=== PATIENT | female | born 1965 | race Caucasian/White ===

== ENCOUNTER 2019-07-08 11:59 | Outpatient (CLI) | payer MEDICARE, MEDICAID, SELFPAY ==
[2019-07-08 12:31] LABS: Basophils # 0.1 10^3/uL (0.0-0.1); Basophils % 0.8 %; Eosinophils # 0.2 10^3/uL (0.0-0.8); Eosinophils % 2.5 %; Hematocrit 40.6 % (37.0-47.0); Hemoglobin 12.7 g/dL (11.5-15.3); Lymphocytes # 3.2 10^3/uL (0.8-4.8); Lymphocytes % 40.8 %; Mean Corpuscular HGB Conc 31.3 g/dL (30.0-36.0); Mean Corpuscular Hemoglobin 28.5 pg (28.0-34.0); Mean Platelet Volume 10.6 fL (7.4-10.4); Monocytes # 0.4 10^3/uL (0.2-0.9); Monocytes % 5.5 %; Neutrophils # 3.9 10^3/uL (1.8-7.7); Nucleated Red Blood Cells % 0 %; Platelet Count 484 10^3/cmm (130-400); Red Blood Count 4.46 10^6/uL (4.1-5.3); Red Cell Distribution Width 14.4 % (12.1-15.1); White Blood Count 7.9 10^3/uL (4.0-10.0)
[2019-07-08 13:24] LABS: Alanine Aminotransferase 11 U/L (0-33); Albumin Level 4.3 g/dL (3.5-5.2); Alkaline Phosphatase 159 IU/L (35-105); Anion Gap 14.8 (5-19); Aspartate Amino Transferase 12 U/L (0-32); Blood Urea Nitrogen 6 mg/dL (6-20); Calcium 10.1 mg/Dl (8.6-10.0); Carbon Dioxide 27 mmol/L (22-29); Chloride 102 mmol/L (98-107); Globulin 2.8 g/dL (1.3-4.6); Glomerular Filtration Rate 104.6 mL/min (90-130); Glucose 115 mg/dL (74-109); Potassium 4.8 mmol/L (3.5-5.1); Sodium 139 mmol/L (136-145); Total Bilirubin 0.2 mg/dL (0.15-1.2); Total Protein 7.1 g/dL (6.6-8.7)
== END 2019-07-08 12:00 | disposition home or self-care (01) ==
LOC: LAB 12:08
PROVIDERS: Family Provider Family Medicine; PCP Family Medicine; Visit Provider Internal Medicine Critical Care Medicine
DX: J44.9 Chronic obstructive pulmonary disease, unspecified (principal); R06.00 Dyspnea, unspecified
CPT/HCPCS: 80053; 85025

== ENCOUNTER 2019-07-16 13:50 | Outpatient (CLI) | payer MEDICARE, MEDICAID, SELFPAY ==
--- NOTE | 2019-07-16 15:06 | CT_ITS ---
WS: [id number] CT CHEST TECHNIQUE: Noncontrast CT of the chest with coronal and sagittal reformatted images. CLINICAL INFORMATION: SHORTNESS OF BREATH COMPARISON: CT 1 16,020 DLP: 809.[address] scans at [facility] use at least one of these dose optimization techniques: automat ed exposure control; mA and/or kV adjustment per patient size (includes targeted exams where dose is matched to clinical indication); or iterative reconstruction. FINDINGS: Both lungs are well aerated bilaterally. No acute pulmonary infiltrates. No evidence of interstitial lung disease. A few calcified granulomas. No suspicious pulmonary parenchymal abnormalities. No acute pulmonary infiltrates. No consolidation or pleural fluid. Normal caliber thoracic aorta. No mediastinal or hilar lymphadenopathy. Thyroid gland is normal. Calc ified hilar and subcarinal lymph nodes. Small sliding-type esophageal hiatal hernia. Cholecystectomy. Small hepatic cyst right hepatic lobe. Adrenal glands are normal. CT/CT chest wo con [id number] IMPRESSION: 1. Both lungs are well aerated. No acute pulmonary infiltrates. 2. No suspicious pulmonary parenchymal abnormalities. 3. No mediastinal or hilar lymphadenopathy. 4. Small sliding-type esophageal hiatal hernia. 5. Small cyst in the right hepatic lobe.
== END 2019-07-16 13:51 | disposition home or self-care (01) ==
LOC: RADWPI 13:52
PROVIDERS: Family Provider Family Medicine; PCP Family Medicine; Visit Provider Internal Medicine Critical Care Medicine
DX: K44.9 Diaphragmatic hernia without obstruction or gangrene (principal); K76.89 Other specified diseases of liver; R06.02 Shortness of breath
CPT/HCPCS: 71250

== ENCOUNTER 2019-08-26 08:06 | Outpatient (CLI) | payer MEDICARE, MEDICAID, SELFPAY ==
--- NOTE | 2019-08-26 08:26 | NMCV_ITS ---
NM christopher perf SPECT r/s* [id number] Nhung Leone Age: 54 Gender: F : 1965 Exam Date: 08/26/2019 09:01 Ordering Phys: Bozena Salcedo MD [email or web address]) Technologist: MANOJ Kyle Exam Location: [facility] Indications: DYSPNEA STRESS TEST Please see separate stress test report in [facility] for full findings IMAGE PROTOCOL Rest/Stress 1 Lexiscan Day Radiopharmaceutical Dose (mCi) Administration Site Administered by Rest: Tc-99m 10.6 IV MANOJ Mcdonald Sestamibi Stress:Tc-99m 32.5 IV MANOJ Mcdonald Sestamibi Rest: 26-Aug-2019 60 Discovery 630 Stress: 26-Aug-2019 30 Discovery 630 0.4mg Lexiscan. Images obtained in supine and prone position. SPECT RESULTS Technical Quality: Excellent Raw Data Analysis: Normal Image Corrections: No attenuation or motion correction applied Summed Stress Score: 0 Summed Rest Score: 1 Summed Difference Score: 0 PERFUSION FINDINGS Very small sized perfusion abnormality of mild severity of apical wall on rest images with improved tracer uptake on stress images. This is suggestive of attenuation artifact. FUNCTIONAL RESULTS (calculated via Gated SPECT) Stress Image LV EF (%): 76 Stress EDV (mL):82 TID: 1.11 Stress ESV (mL):20 FUNCTIONAL FINDINGS: The left ventricle is normal in size. Transient Ischemia Dilatation of 1.1. There is normal left ventricular systolic function. The left ventricular ejection fraction is normal with a value of 76%. There is normal left ventricular wall thickening. Normal end-diastolic and end-systolic volumes. IMPRESSIONS 1. Myocardial perfusion imaging is normal. 2. Overall left ventricular systolic function is normal without regional wall motion abnormalities. 3. The left ventricular ejection fraction is normal with a value of 76%. 4. This study suggests a low likelihood of angiographically significant coronary artery disease. Bozena Salcedo MD (Electronically Signed) Final Date: 26 August 2019 16:30 S
--- NOTE | 2019-08-26 08:26 | ECG_ITS ---
NAME OF STUDY: LEXISCAN SESTAMIBI STRESS TEST INDICATION: Chest Pain, dyspnea PROCEDURE: At the baseline, the blood pressure was 150/88 mm Hg with a heart rate of 97 bpm and oxygen saturation 92%. The electrocardiogram showed normal sinus rhythm, normal axis with normal ST and T's. The Lexiscan was infused over a period of 20 seconds. A total of 0.4 milligrams of Lexiscan was infused. The stress phase was continued for a total of 5 minutes. Heart rate at the end of the stress phase was 110 bpm, oxygen saturation 93% with a blood pressure 126/83 mm Hg. The EKG at the peak infusion revealed sinus rhythm with no significant ST-T wave changes. Sestamibi was injected 20 seconds after the Lexiscan infusion. Blood pressure at the end of the recovery phase was 132/82 mmHg, oxygen saturation 92% with a heart rate of 103 beats per minute. CONCLUSION: 1. Normal EKG response to LexiScan infusion. 2. No LexiScan induced chest pain or cardiac arrhythmia. 3. Normal blood pressure and heart rate response. 4. Sestamibi/sestamibi perfusion scan pending; see separate report. Electronically Signed On 08-26-2019 16:33:52 SKIVER MACHINE by Bozean Salcedo M.D. [email or web address]
[2019-08-26 08:27] VITALS: BMI 32.5
[2019-08-26] MEDS: regadenoson 0.4 Mg/5 ml Syringe IVP (10:07)
[2019-08-26 10:10] VITALS: BP 130/81; PULSE 105
== END 2019-08-26 08:07 | disposition home or self-care (01) ==
PROVIDERS: Family Provider Family Medicine; PCP Family Medicine; Visit Provider Internal Medicine Cardiovascular Disease
DX: R06.00 Dyspnea, unspecified (principal); R07.9 Chest pain, unspecified
CPT/HCPCS: 78452; 93017; A9500; J2785

== ENCOUNTER → 2019-08-28 08:51 | Outpatient (BNVA) | payer MEDICARE, MEDICAID, SELFPAY | PROVIDERS: Family Provider Family Medicine; PCP Family Medicine; Visit Provider Anesthesiology | DX: G89.29 Other chronic pain (principal); M54.16 Radiculopathy, lumbar region; M79.651 Pain in right thigh; M79.652 Pain in left thigh; F17.210 Nicotine dependence, cigarettes, uncomplicated; Z79.891 Long term (current) use of opiate analgesic | CPT/HCPCS: 99214 ==

== ENCOUNTER → 2019-09-10 10:34 | Outpatient (BNVA) | payer MEDICARE, MEDICAID, SELFPAY | PROVIDERS: Family Provider Family Medicine; PCP Family Medicine; Visit Provider Nurse Practitioner Psychiatric/Mental Health | DX: F33.2 Major depressive disorder, recurrent severe without psychotic features (principal); Z63.4 Disappearance and death of family member; F41.1 Generalized anxiety disorder; F17.210 Nicotine dependence, cigarettes, uncomplicated; G47.33 Obstructive sleep apnea (adult) (pediatric) | CPT/HCPCS: 99213 ==

== ENCOUNTER 2019-09-22 12:14 | Outpatient (CLI) | payer MEDICARE, MEDICAID, SELFPAY ==
--- NOTE | 2019-09-22 | XR_ITS ---
WS: [id number] CHEST 2 VIEWS HISTORY: DYSPNEA COMPARISON: 09/22/2019 Lungs: Hyperinflated lungs with changes of emphysema. There are a few scattered granulomata. Intersti tial thickening and scarring is stable in the lower lung sutton. No pleural effusion. Cardiac size: Normal. Mediastinum/Aorta: Mild atherosclerosis aorta. Bones: Mild increase in thoracic kyphosis. XR/XR chest 2V* [id number] IMPRESSION: 1. Chronic emphysema and prior granulomatous disease. 2. Stable chest with no acute pneumonia.
== END 2019-09-22 12:15 | disposition home or self-care (01) ==
LOC: RADOUTREAD 09-23 07:32
PROVIDERS: Family Provider Family Medicine; PCP Family Medicine; Visit Provider Family Medicine
DX: Z76.89 Persons encountering health services in other specified circumstances (principal)

== ENCOUNTER 2019-09-22 13:21 | Inpatient (IN) | payer MEDICARE, MEDICAID, SELFPAY ==
[2019-09-22] VITALS (9 sets, daily range): BP systolic 109–131; BP diastolic 78–84; PULSE 85–112; RESP 18–26; TEMP 36.4–36.8; O2SAT 90–96
--- NOTE | 2019-09-22 15:37 | PM.HP ---
Providers/Chief Complaint Admitting Physician: Lauri Krishnan MD Primary Care Provider: Lauri Krishnan MD Chief Complaint: j96.00, J44.9, J45.909, J45.901 R11.10, K52.9 History of Present Illness Nhung Leone is a 54 year old pleasant lady with history of COPD, asthma, KRISTOFER, on nightly CPAP, following with pulmonology, rhinosinusitis, depression, GERD, current smoker, although says has been trying to cut down, with chronic back pain, on chronic methadone return to her primary care provider's office today after again worsening of her dyspnea symptoms, cough, and noted to have wheezing on exam despite treatment with prednisone and Augmentin 10 days ago. She is saturating well on room air, however, does have significant subjective dyspnea. Also dysphonia, says having lost her voice within the last day or so. She reports she has persistent dry cough. She reports that her cough is very bothersome, and is the worst at night. She does report significant GERD, despite having increased the dose of omeprazole to 20 mg twice daily. She says that she sometimes takes a solution of vinegar which mildly helps with her symptoms. She says she had an EGD before but it was many years ago. Review of Systems Const: Denies: fever, chills, body aches or malaise Eyes: Denies: change in vision or eye redness ENMT: Denies: throat pain, oral sores/lesions or ear pain Card: Reports: other (Chronic tachycardia); Denies: chest pain, edema, pre-syncope or shortness of breath on exertion Resp: Reports: shortness of breath and non-productive cough; Denies: productive cough, change in phlegm color or coughing up blood GI: Reports: heartburn/indigestion; Denies: abdominal pain, nausea, vomiting, diarrhea, constipation, blood in stool or black tarry stool : Denies: flank pain, urinary frequency or blood in urine Musc: Reports: back pain (Chronic); Denies: joint swelling or redness Skin/Breast: Denies: rash, sores or new lesion Neuro: Denies: headache, numbness in extremities, weakness in extremities, dizziness, confusion or seizure-like activity Endo: Denies: excessive urination or excessive thirst Keith/Lymph: Denies: easy bleeding or purpura All/Imm: Denies: hives, throat swelling or tongue swelling Medications/Allergies Allergies Allergy/AdvReac Type Severity Reaction Status Date / Time codeine Allergy Unknown Unknown Verified 08/28/19 09:32 doxycycline Allergy Unknown ALGY-Hives Verified 08/28/19 09:32 Iodinated Contrast Media Allergy Unknown ALGY-Hives Verified 08/28/19 09:32 Sulfa (Sulfonamide Allergy Unknown Unknown Verified 08/28/19 09:32 Antibiotics) gabapentin Allergy Unknown Verified 08/28/19 09:32 PFSH Acute PFSH: Medical History Acute respiratory failure Bereavement delivery delivered Chronic post-traumatic stress disorder Chronic radicular lumbar pain COPD (chronic obstructive pulmonary disease) Dyspnea Encounter for long-term use of opiate analgesic Essential (primary) hypertension Generalized anxiety disorder GERD (gastroesophageal reflux disease) Heavy cigarette smoker Herniated disc Hypokalemia Lesion of ulnar nerve, bilateral Major depressive disorder, recurrent severe without psychotic features Obstructive sleep apnea Opioid contract exists KRISTOFER on CPAP Sleep apnea, unspecified Smoker Tachycardia Ulnar nerve abnormality Surgical History H/O bilateral oophorectomy H/O skin graft History of carpal tunnel release History of cholecystectomy Family History Father Myocardial infarct, Onset Age: 45 Brother Myocardial infarct, Onset Age: 53 vague, denies any h/o stents/bypass in family members Other CAD (coronary artery disease) Social History Smoking and tobacco status: current every day smoker cigarettes Packs smoked per day: 1 Years cigarettes smoked: 36 Alcohol intake: current Alcohol intake frequency: few times a week Current occupational status: disabled History of recent travel: No Current gender identity: Female Vitals/I&O/Wt Last Vital Signs Temp 98.2 F 09/22/19 14:47 Pulse 112 H 09/22/19 14:47 Resp 20 H 09/22/19 14:47 BP 109/78 09/22/19 14:47 Pulse Ox 94 09/22/19 14:47 Weight last 48 hrs Weight 88.451 kg Physical Exam Const: COMMON NORMALS: no apparent distress and oriented x3 HENMT: COMMON NORMALS: oropharynx normal Neck/C-Spine: COMMON NORMALS: no JVD Resp: COMMON NORMALS: normal respiratory effort and clear to auscultation bilaterally AUSCULTATION: wheezes Cardio: COMMON NORMALS: no JVD, regular rhythm, S1 normal heart sound, S2 normal heart sound and no murmurs RATE: tachycardic (Regular tachycardia, chronic) RHYTHM: regular rhythm HEART SOUNDS: S1 normal and S2 normal GI: COMMON NORMALS: normal to inspection, nondistended, normoactive bowel sounds, soft to palpation and non-tender PALPATION: Yes soft Extremity: COMMON NORMALS: no joint enlargement and no pedal edema Neuro: COMMON NORMALS: oriented x3 and moves all extremities Skin: COMMON NORMALS: no rashes or lesions noted GENERAL SKIN EXAM: no rashes or lesions noted A&P Assessment and plan (1) COPD (chronic obstructive pulmonary disease): COPD with exacerbation. Completed a course of Augmentin and prednisone 10 days ago. Still having dyspnea. Unfortunately she does still smoke had a low discussion with her regarding quitting. She does saturate well on room air. She does have wheezing on exam. Does not have purulent sputum production. At this time will not give antibiotic. Discussed with PCP, and in his office chest x-ray without pneumonia. We will assess her for influenza. With cough, wheezing, despite treatment, without other explanation, will also assess her for COVID. She does have significant GERD, which in absence of other explanation most likely is responsible for her symptoms as she does report that her bothersome cough is the worst at night. Discussed with her regarding avoiding meals before sleeping. She does state that her dinner is at 5 PM and she usually falls asleep at 10 PM. She does, however, drink Pepsi before sleeping. Discussed to avoid this or other carbonated drinks and otherwise stay without oral intake for at least 3-4 hours prior to sleeping. With her propping up the head of bed on some cinderblocks. We discussed other foods that may also lead to symptoms of GERD to avoid. At this time will increase dose of her PPI to 40 mg twice a day. Her primary care provider has had good experience with also adding H2 aniket on top of PPI, and recommends we do so in this case as well. Discussed with her as she is a chronic smoker, with persistent GERD despite treatment will benefit from endoscopic evaluation once these may be resumed after the pandemic. At this time continue nightly CPAP. Due to this she will require airborne isolation. Oxygen support as needed. Breathing treatments. Add inhaled budesonide. Continue follow-up with pulmonology after discharge as IgE is elevated, with consideration of additional therapeutic measures. Status: Acute Code(s): J44.9 - Chronic obstructive pulmonary disease, unspecified Additional A&P Information KRISTOFER: Nightly CPAP Smoking addiction: Continues to smoke despite respiratory symptoms. Discussed with her for 5 minutes and she understands the rationale on quitting. She is agreeable for nicotine replacement. Please continue to encourage cessation. GERD: As above Chronic tachycardia: Assessed by cardiology, appears this is most likely secondary to pulmonary causes. Chronic back pain: On methadone. Continue. Restless leg syndrome: Continue ropinirole Depression Other chronic conditions as mentioned in PMH Attestations Medical Necessity Statement*: Place in observation. 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
[2019-09-22] MEDS: ipratropium-albuterol 3 mL Neb INHALATION ×2 (15:50→21:37)
[2019-09-22] MEDS: heparin 5,000 unit/mL INJ 1 mL 5000 UNIT SUBCUT ×2 (16:38→21:24)
[2019-09-22] MEDS: oxyCODONE-APAP 10-325 mg Tablet 1 TAB PO (16:44)
[2019-09-22] MEDS: ropinirole 0.25 mg Tablet 0.5 MG PO (16:45)
[2019-09-22] MEDS: pantoprazole DR 40 mg Tablet PO (16:45)
[2019-09-22] MEDS: methadone 10 mg Tablet PO ×2 (16:46→21:24)
[2019-09-22] MEDS: famotidine 20 mg Tablet PO (16:47)
[2019-09-22] MEDS: topiramate 100 mg Tablet PO (16:47)
[2019-09-22] MEDS: fluticasone nasal spray 16gm Btl 1 SPRAY INTRANASAL (16:48)
[2019-09-22 17:34] LABS: Basophils # 0.1 10^3/uL (0.0-0.1); Basophils % 0.4 %; Eosinophils # 0.2 10^3/uL (0.0-0.8); Eosinophils % 1.5 %; Hematocrit 38.5 % (37.0-47.0); Hemoglobin 11.6 g/dL (11.5-15.3); Lymphocytes % 34.6 %; Mean Corpuscular HGB Conc 30.1 g/dL (30.0-36.0); Mean Corpuscular Hemoglobin 26.1 pg (28.0-34.0); Mean Corpuscular Volume 86.7 fL (81-99); Mean Platelet Volume 11.7 fL (7.4-10.4); Monocytes # 0.8 10^3/uL (0.2-0.9); Monocytes % 5.4 %; Neutrophils # 8.3 10^3/uL (1.8-7.7); Nucleated Red Blood Cells % 0 %; Platelet Count 384 10^3/cmm (130-400); Red Blood Count 4.44 10^6/uL (4.1-5.3); Red Cell Distribution Width 15.6 % (12.1-15.1); White Blood Count 14.4 10^3/uL (4.0-10.0)
[2019-09-22 17:52] LABS: Alanine Aminotransferase 16 U/L (0-33); Albumin Level 3.9 g/dL (3.5-5.2); Alkaline Phosphatase 137 IU/L (35-105); Anion Gap 17.6 (5-19); Aspartate Amino Transferase 15 U/L (0-32); Blood Urea Nitrogen 4 mg/dL (6-20); Calcium 9.5 mg/dL (8.5-10.5); Carbon Dioxide 25 mmol/L (22-29); Chloride 102 mmol/L (98-107); Globulin 2.9 g/dL (1.3-4.6); Glomerular Filtration Rate 104.2 mL/min (90-130); Glucose 107 mg/dL (65-115); Osmolality Calculated 288 mOsm/kg (285-295); Potassium 3.6 mmol/L (3.5-5.1); Sodium 141 mmol/L (136-145); Total Bilirubin 0.2 mg/dL (0.15-1.2); Total Protein 6.8 g/dL (6.6-8.7)
[2019-09-22 18:28] LABS: Neutrophils % 58.1 %
[2019-09-22 18:29] LABS: Slide Review Slide Review Perform
[2019-09-22 18:31] LABS: Influenza A by IFA Negative (Negative); Influenza B by IFA Negative (Negative)
[2019-09-22] MEDS: budesonide 0.5 mg/2 mL Neb INHALATION (21:37)
[2019-09-23] VITALS (16 sets, daily range): BP systolic 99–140; BP diastolic 63–81; PULSE 98–119; RESP 16–21; TEMP 36.8–37.3; O2SAT 87–95
[2019-09-23] MEDS: ipratropium-albuterol 3 mL Neb INHALATION ×2 (03:00→09:36)
[2019-09-23 06:33] LABS: Alanine Aminotransferase 19 U/L (0-33); Albumin Level 3.7 g/dL (3.5-5.2); Alkaline Phosphatase 148 IU/L (35-105); Anion Gap 13.4 (5-19); Aspartate Amino Transferase 19 U/L (0-32); Blood Urea Nitrogen 6 mg/dL (6-20); Calcium 9.4 mg/dL (8.5-10.5); Carbon Dioxide 27 mmol/L (22-29); Chloride 100 mmol/L (98-107); Globulin 2.8 g/dL (1.3-4.6); Glomerular Filtration Rate 104.2 mL/min (90-130); Glucose 125 mg/dL (65-115); Osmolality Calculated 279 mOsm/kg (285-295); Potassium 4.4 mmol/L (3.5-5.1); Sodium 136 mmol/L (136-145); Total Bilirubin 0.2 mg/dL (0.15-1.2); Total Protein 6.5 g/dL (6.6-8.7)
[2019-09-23] MEDS: heparin 5,000 unit/mL INJ 1 mL 5000 UNIT SUBCUT ×3 (06:38→23:23)
[2019-09-23] MEDS: verapamil ER 180 mg Tablet PO (06:39)
--- NOTE | 2019-09-23 07:41 | XR_ITS ---
WS: [id number] PORTABLE CHEST HISTORY: dyspnea COMPARISON: 09/22/2019 Hyperexpanded lungs. Linear, horizontal atelectasis in the RIGHT lower lung field is new. No pneumoni a. No pleural effusion or pneumothorax. No pulmonary nodule. Cardiac size: Normal. Mediastinum/Aorta: Mild atherosclerosis aorta. No osseous abnormality seen. XR/XR chest 1V portable [id number] IMPRESSION: 1. Minimal subsegmental atelectasis RIGHT lower lobe is new. 2. Chronic emphysema with no pneumonia.
[2019-09-23 07:58] LABS: Basophils # 0.1 10^3/uL (0.0-0.1); Basophils % 0.4 %; Eosinophils # 0.2 10^3/uL (0.0-0.8); Eosinophils % 1.9 %; Hematocrit 35.3 % (37.0-47.0); Hemoglobin 10.7 g/dL (11.5-15.3); Lymphocytes # 3.4 10^3/uL (0.8-4.8); Lymphocytes % 29.7 %; Mean Corpuscular HGB Conc 30.4 g/dL (30.0-36.0); Mean Corpuscular Hemoglobin 27.2 pg (28.0-34.0); Mean Corpuscular Volume 89.3 fL (81-99); Mean Platelet Volume 10.9 fL (7.4-10.4); Monocytes # 0.9 10^3/uL (0.2-0.9); Monocytes % 7.5 %; Neutrophils # 6.9 10^3/uL (1.8-7.7); Neutrophils % 59.8 %; Nucleated Red Blood Cells % 0 %; Platelet Count 418 10^3/cmm (130-400); Red Blood Count 4.01 10^6/uL (4.1-5.3); Red Cell Distribution Width 15.8 % (12.1-15.1); White Blood Count 11.5 10^3/uL (4.0-10.0)
[2019-09-23] MEDS: budesonide 0.5 mg/2 mL Neb INHALATION (09:37)
[2019-09-23] MEDS: topiramate 100 mg Tablet PO ×2 (09:59→18:06)
[2019-09-23] MEDS: famotidine 20 mg Tablet PO ×2 (10:00→18:05)
[2019-09-23] MEDS: acetaminophen 325 mg Tablet 650 MG PO (10:00)
[2019-09-23] MEDS: ropinirole 0.25 mg Tablet 0.5 MG PO ×2 (10:00→18:05)
[2019-09-23] MEDS: roflumilast 500 mcg Tablet PO (10:00)
[2019-09-23] MEDS: pantoprazole DR 40 mg Tablet PO ×2 (10:00→18:05)
[2019-09-23] MEDS: methadone 10 mg Tablet PO ×4 (10:09→20:17)
[2019-09-23] MEDS: fluticasone nasal spray 16gm Btl 1 SPRAY INTRANASAL ×2 (10:10→18:06)
[2019-09-23] MEDS: nicotine 21 mg Patch 1 PATCH TRANSDERMA (10:10)
--- NOTE | 2019-09-23 10:30 | DCPLANNER ---
Per rounding, pt will d/c to home after covid test results come back.
--- NOTE | 2019-09-23 11:24 | PC.RESP ---
Patient given Pulmonary Rehab and Smoking Cessation information.
--- NOTE | 2019-09-23 16:08 | P.PN_ITS ---
Subjective Subjective: Interval history: Feeling slightly better, although overall about the same. Does not feel worse, although also has been using some oxygen. Vitals/I&O/Wt Last Vital Signs Temp 98.6 F 09/23/19 15:58 Pulse 99 09/23/19 15:58 Resp 18 09/23/19 15:58 BP 110/68 09/23/19 15:58 Pulse Ox 94 09/23/19 15:58 09/23/19 09/23/19 09/23/19 06:59 14:59 22:59 Intake Total 200 / 450 480 / 480 Balance 200 / 450 480 / 480 Weight last 48 hrs Weight 88.451 kg Physical Exam Const: COMMON NORMALS: no apparent distress and oriented x3 HENMT: COMMON NORMALS: oropharynx normal Neck/C-Spine: COMMON NORMALS: no JVD Resp: COMMON NORMALS: normal respiratory effort and clear to auscultation bilaterally AUSCULTATION: clear to auscultation bilaterally and wheezes Cardio: COMMON NORMALS: no JVD, regular rhythm, S1 normal heart sound, S2 normal heart sound and no murmurs RATE: tachycardic (Regular tachycardia, chronic) RHYTHM: regular rhythm HEART SOUNDS: S1 normal and S2 normal GI: COMMON NORMALS: normal to inspection, nondistended, normoactive bowel sounds, soft to palpation and non-tender PALPATION: Yes soft Extremity: COMMON NORMALS: no joint enlargement and no pedal edema Neuro: COMMON NORMALS: oriented x3 and moves all extremities Skin: COMMON NORMALS: no rashes or lesions noted GENERAL SKIN EXAM: no rashes or lesions noted Data : 09/23/19 06:05 09/23/19 06:05 A&P Assessment and plan (1) COPD (chronic obstructive pulmonary disease): Today feeling slightly better, although he is using some oxygen. Still bilateral wheezing. Has walked to the restroom and that was okay. Overall she has been stable. COVID testing pending. COPD with exacerbation. Completed a course of Augmentin and prednisone 10 days ago. Still having dyspnea. Unfortunately she does still smoke had a low discussion with her regarding quitting. Does not have purulent sputum production. Holding off antibiotic at this time as I believe this is mostly secondary to her GERD. Rapid flu neg. She had some episodes of dry heaving and small amount of vomiting this morning. Continue PPI, H2 aniket. Add sucralfate. She does have significant GERD, which in absence of other explanation most likely is responsible for her symptoms as she does report that her bothersome cough is the worst at night. Discussed with her regarding avoiding meals before sleeping. She does state that her dinner is at 5 PM and she usually falls asleep at 10 PM. She does, however, drink Pepsi before sleeping. Discussed to avoid this or other carbonated drinks and otherwise stay without oral intake for at least 3-4 hours prior to sleeping. With her propping up the head of bed on some cinderblocks. We discussed other foods that may also lead to symptoms of GERD to avoid. At this time will increase dose of her PPI to 40 mg twice a day. Her primary care provider has had good experience with also adding H2 aniket on top of PPI, and recommends we do so in this case as well. Discussed with her as she is a chronic smoker, with persistent GERD despite treatment will benefit from endoscopic evaluation once these may be resumed after the pandemic. At this time continue nightly CPAP. Due to this she will require airborne i solation. Oxygen support as needed. Breathing treatments. Add inhaled budesonide. Continue follow-up with pulmonology after discharge as IgE is elevated, with consideration of additional therapeutic measures. Status: Acute Code(s): J44.9 - Chronic obstructive pulmonary disease, unspecified Additional A&P Information KRISTOFER: Nightly CPAP Smoking addiction: Continues to smoke despite respiratory symptoms. Discussed with her for 5 minutes and she understands the rationale on quitting. She is agreeable for nicotine replacement. Please continue to encourage cessation. GERD: As above Chronic tachycardia: Assessed by cardiology, appears this is most likely seconda ry to pulmonary causes. Chronic back pain: On methadone. Continue. Restless leg syndrome: Continue ropinirole Depression Other chronic conditions as mentioned in PMH Attestations Medical Necessity Statement*: Continue observation for COPD exacerbation, ruling out COVID. 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
[2019-09-23] MEDS: albuterol 8 gm MDI 2 PUFF INHALATION ×2 (16:10→21:15)
[2019-09-23] MEDS: sucralfate 1 gm/10 mL Oral Liq UDC PO ×2 (18:05→20:17)
[2019-09-24] VITALS (20 sets, daily range): BP systolic 91–157; BP diastolic 60–83; PULSE 90–113; RESP 16–22; TEMP 36.8–37.2; O2SAT 90–97
[2019-09-24] MEDS: albuterol 8 gm MDI 2 PUFF INHALATION ×6 (01:37→21:50)
[2019-09-24 05:37] LABS: Basophils % 0.4 %; Eosinophils # 0.2 10^3/uL (0.0-0.8); Eosinophils % 1.8 %; Hematocrit 35.7 % (37.0-47.0); Hemoglobin 10.9 g/dL (11.5-15.3); Lymphocytes # 3.8 10^3/uL (0.8-4.8); Lymphocytes % 34.4 %; Mean Corpuscular HGB Conc 30.5 g/dL (30.0-36.0); Mean Corpuscular Hemoglobin 27.4 pg (28.0-34.0); Mean Corpuscular Volume 89.7 fL (81-99); Mean Platelet Volume 10.3 fL (7.4-10.4); Monocytes # 0.8 10^3/uL (0.2-0.9); Monocytes % 6.8 %; Neutrophils # 6.2 10^3/uL (1.8-7.7); Nucleated Red Blood Cells % 0 %; Platelet Count 383 10^3/cmm (130-400); Red Blood Count 3.98 10^6/uL (4.1-5.3); Red Cell Distribution Width 15.9 % (12.1-15.1)
[2019-09-24] MEDS: verapamil ER 180 mg Tablet PO (05:54)
[2019-09-24] MEDS: sucralfate 1 gm/10 mL Oral Liq UDC PO ×4 (05:54→21:56)
[2019-09-24 06:02] LABS: Alanine Aminotransferase 17 U/L (0-33); Albumin Level 3.7 g/dL (3.5-5.2); Alkaline Phosphatase 140 IU/L (35-105); Anion Gap 17.3 (5-19); Aspartate Amino Transferase 14 U/L (0-32); Blood Urea Nitrogen 9 mg/dL (6-20); Calcium 9.4 mg/dL (8.5-10.5); Carbon Dioxide 23 mmol/L (22-29); Chloride 101 mmol/L (98-107); Globulin 2.3 g/dL (1.3-4.6); Glomerular Filtration Rate 87.2 mL/min (90-130); Glucose 99 mg/dL (65-115); Osmolality Calculated 280 mOsm/kg (285-295); Potassium 4.3 mmol/L (3.5-5.1); Sodium 137 mmol/L (136-145); Total Bilirubin 0.3 mg/dL (0.15-1.2)
[2019-09-24] MEDS: ropinirole 0.25 mg Tablet 0.5 MG PO ×2 (09:51→18:11)
[2019-09-24] MEDS: heparin 5,000 unit/mL INJ 1 mL 5000 UNIT SUBCUT ×2 (09:51→16:04)
[2019-09-24] MEDS: famotidine 20 mg Tablet PO ×2 (09:52→18:11)
[2019-09-24] MEDS: roflumilast 500 mcg Tablet PO (09:52)
[2019-09-24] MEDS: pantoprazole DR 40 mg Tablet PO ×3 (09:52→20:13)
[2019-09-24] MEDS: acetaminophen 325 mg Tablet 650 MG PO (09:52)
[2019-09-24] MEDS: methadone 10 mg Tablet PO ×4 (09:52→20:12)
[2019-09-24] MEDS: fluticasone nasal spray 16gm Btl 1 SPRAY INTRANASAL ×2 (09:53→20:14)
[2019-09-24] MEDS: nicotine 21 mg Patch 1 PATCH TRANSDERMA (09:53)
[2019-09-24] MEDS: topiramate 100 mg Tablet PO ×2 (09:53→18:11)
--- NOTE | 2019-09-24 10:32 | DCPLANNER ---
Covid test not back yet, pt may need 02, will need home 02 eval.
--- NOTE | 2019-09-24 19:52 | P.PN_ITS ---
Subjective Subjective: Interval history: She was still having dry heaving today, but at the same time still very dyspneic with wheezing on exam. Although, she does note that coughing at night has improved with acid blockers and her trying to raise the head of bed overnight. COVID-19 testing is pending. She states that her brother who was telehealth nurse educator was sent home from work due to contact with her until her test results are back. I called [facility] to confirm that they have the specimen. Vitals/I&O/Wt Last Vital Signs Temp 98.2 F 09/24/19 16:00 Pulse 109 H 09/24/19 16:00 Resp 20 H 09/24/19 18:12 BP 100/61 09/24/19 16:00 Pulse Ox 93 09/24/19 18:12 09/24/19 09/24/19 09/24/19 06:59 14:59 22:59 Intake Total 120 / 1200 1080 / 1080 Output Total 300 / 300 Balance 120 / 775 780 / 780 Physical Exam Const: COMMON NORMALS: no apparent distress and oriented x3 HENMT: COMMON NORMALS: oropharynx normal Neck/C-Spine: COMMON NORMALS: no JVD Resp: COMMON NORMALS: normal respiratory effort AUSCULTATION: wheezes (Bilateral) Cardio: COMMON NORMALS: no JVD, regular rhythm, S1 normal heart sound, S2 normal heart sound and no murmurs RATE: tachycardic (Regular tachycardia, chronic) RHYTHM: regular rhythm HEART SOUNDS: S1 normal and S2 normal GI: COMMON NORMALS: normal to inspection, nondistended, normoactive bowel sounds, soft to palpation and non-tender PALPATION: Yes soft Extremity: COMMON NORMALS: no joint enlargement and no pedal edema Neuro: COMMON NORMALS: oriented x3 and moves all extremities Skin: COMMON NORMALS: no rashes or lesions noted GENERAL SKIN EXAM: no rashes or lesions noted Data : 09/24/19 05:19 09/24/19 05:19 A&P Assessment and plan (1) COPD (chronic obstructive pulmonary disease): Again dyspneic, with cough. Easily fatigable, with low reserve. Objectively she has weaned off oxygen at rest. She has been having dry heaves again, however, although says coughing less at night. She has quite significant wheezing on exam. Unfortunately we do not have a choice but to start her back on steroid. We will for now start on 20 mg prednisone. Will intensify Protonix to 80 mg twice a day. Continue H2 aniket and sucralfate. Will check H. pylori. Discussed with her at this time EGD is not possible as all elective procedures are discontinued until further notice due to pandemic. COVID testing pending. Request have received the sample. She says her brother who is a telehealth nurse educator was sent home until her results are available. COPD with exacerbation. Completed a course of Augmentin and prednisone 10 days ago. Still having dyspnea. Unfortunately she does still smoke had a low discussion with her regarding quitting. Does not have purulent sputum production. Holding off antibiotic at this time as I believe this is mostly secondary to her GERD. Rapid flu neg. She does have significant GERD, which in absence of other explanation most likely is responsible for her symptoms as she does report that her bothersome cough is the worst at night. Discussed with her regarding avoiding meals before sleeping. She does state that her dinner is at 5 PM and she usually falls asleep at 10 PM. She does, however, drink Pepsi before sleeping. Discussed to avoid this or other carbonated drinks and otherwise stay without oral intake for at least 3-4 hours prior to sleeping. With her propping up the head of bed on some cinderblocks. We discussed other foods that may also lead to symptoms of GERD to avoid. At this time will increase dose of her PPI to 40 mg twice a day. Her primary care provider has had good experience with also adding H2 aniket on top of PPI, and recommends we do so in this case as well. Discussed with her as she is a chronic smoker, with persistent GERD despite treatment will benefit from endoscopic evaluation once these may be resumed after the pandemic. At this time continue nightly CPAP. Due to this she will require airborne isolation. Oxygen support as needed. Breathing treatments. Inhaled budesonide. Continue follow-up with pulmonology after discharge as IgE is elevated, with consideration of additional therapeutic measures. Status: Acute Code(s): J44.9 - Chronic obstructive pulmonary disease, unspecified Additional A&P Information KRISTOFER: Nightly CPAP Smoking addiction: Continues to smoke despite respiratory symptoms. Discussed w ith her for 5 minutes and she understands the rationale on quitting. She is agreeable for nicotine replacement. Please continue to encourage cessation. GERD: As above Chronic tachycardia: Assessed by cardiology, appears this is most likely secondary to pulmonary causes. Chronic back pain: On methadone. Continue. Restless leg syndrome: Continue ropinirole Depression Other chronic conditions as mentioned in PMH Attestations Medical Necessity Statement*: Requiring admission of over 2 midnights for asse ssment and management of COPD with exacerbation, with failed outpatient course of therapy. Coding Level of Care Code Acute Biologist for Gracie Laguna Diagnoses COPD (chronic obstructive pulmonary disease) J44.9
[2019-09-24] MEDS: predniSONE 20 mg Tablet PO (20:14)
[2019-09-24 20:16] LABS: H. Pylori IgG Antibody Negative (Negative)
[2019-09-25] VITALS (9 sets, daily range): BP systolic 102–114; BP diastolic 69–76; PULSE 11–121; RESP 18–24; TEMP 36.7–36.9; O2SAT 90–95
[2019-09-25] MEDS: heparin 5,000 unit/mL INJ 1 mL 5000 UNIT SUBCUT ×2 (00:01→09:16)
[2019-09-25] MEDS: albuterol 8 gm MDI 2 PUFF INHALATION ×3 (05:29→15:39)
[2019-09-25] MEDS: sucralfate 1 gm/10 mL Oral Liq UDC PO (06:22)
[2019-09-25] MEDS: verapamil ER 180 mg Tablet PO (06:22)
[2019-09-25 06:49] LABS: Basophils # 0.1 10^3/uL (0.0-0.1); Basophils % 0.5 %; Eosinophils % 0.2 %; Hematocrit 37.1 % (37.0-47.0); Hemoglobin 11.3 g/dL (11.5-15.3); Lymphocytes # 2.1 10^3/uL (0.8-4.8); Lymphocytes % 17.8 %; Mean Corpuscular HGB Conc 30.5 g/dL (30.0-36.0); Mean Corpuscular Hemoglobin 26.8 pg (28.0-34.0); Mean Corpuscular Volume 88.1 fL (81-99); Mean Platelet Volume 10.7 fL (7.4-10.4); Monocytes # 0.5 10^3/uL (0.2-0.9); Monocytes % 4.2 %; Neutrophils # 8.9 10^3/uL (1.8-7.7); Neutrophils % 76.6 %; Nucleated Red Blood Cells % 0 %; Platelet Count 411 10^3/cmm (130-400); Red Blood Count 4.21 10^6/uL (4.1-5.3); Red Cell Distribution Width 15.9 % (12.1-15.1); White Blood Count 11.7 10^3/uL (4.0-10.0)
[2019-09-25 07:07] LABS: Alanine Aminotransferase 16 U/L (0-33); Albumin Level 4.1 g/dL (3.5-5.2); Alkaline Phosphatase 143 IU/L (35-105); Anion Gap 16.4 (5-19); Aspartate Amino Transferase 15 U/L (0-32); Blood Urea Nitrogen 15 mg/dL (6-20); Calcium 9.7 mg/dL (8.5-10.5); Carbon Dioxide 24 mmol/L (22-29); Chloride 101 mmol/L (98-107); Creatinine Clr Calc Pharmacy 88.3043; Glomerular Filtration Rate 74.7 mL/min (90-130); Glucose 119 mg/dL (65-115); Osmolality Calculated 281 mOsm/kg (285-295); Potassium 4.4 mmol/L (3.5-5.1); Sodium 137 mmol/L (136-145); Total Bilirubin 0.2 mg/dL (0.15-1.2); Total Protein 7.1 g/dL (6.6-8.7)
--- NOTE | 2019-09-25 07:37 | US_ITS ---
WS: [id number] RIGHT UPPER QUADRANT ULTRASOUND HISTORY: Hepatobiliary with AP elevation COMPARISON: 09/01/2015 Liver: 15.5 cm in length. Mild hepatic steatosis. No mass or biliary dilatation. Gallbladder: Prior cholecystectomy. CBD: 0.4 cm Pancreas: Not visualized. Right kidney: 11.3 cm in length. Normal echogenicity with no mass or hydronephrosis. Aorta and IVC: Unremarkable. No ascites. US/US abdomen limited [id number] IMPRESSION: 1. Prior cholecystectomy. 2. Moderate hepatic steatosis. 3. No bile duct dilatation.
[2019-09-25] MEDS: roflumilast 500 mcg Tablet PO (09:15)
[2019-09-25] MEDS: methadone 10 mg Tablet PO ×2 (09:15→14:37)
[2019-09-25] MEDS: topiramate 100 mg Tablet PO (09:15)
[2019-09-25] MEDS: ropinirole 0.25 mg Tablet 0.5 MG PO (09:15)
[2019-09-25] MEDS: nicotine 21 mg Patch 1 PATCH TRANSDERMA (09:15)
[2019-09-25] MEDS: pantoprazole DR 40 mg Tablet 80 MG PO (09:16)
[2019-09-25] MEDS: famotidine 20 mg Tablet PO (09:16)
[2019-09-25] MEDS: fluticasone nasal spray 16gm Btl 1 SPRAY INTRANASAL (09:16)
[2019-09-25] MEDS: predniSONE 20 mg Tablet PO (09:16)
--- NOTE | 2019-09-25 19:47 | P.DS_ITS ---
Discharge Providers Date of Admission: 09/24/19 19:51 Date of Discharge: September 25, 2019 Attending Provider at Admission: Lauri Krishnan MD Attending Provider at Discharge: Jose Chavez Primary Care Provider: Lauri Krishnan MD Diagnoses at Discharge Discharge Diagnosis (1) COPD (chronic obstructive pulmonary disease): Status: Acute Reason for Visit Reason for Visit: Reason For Visit: j96.00, J44.9, J45.909, J45.901 R11.10, K52.9 Hospital Course Hospital Course: Very pleasant 54 year old lady with history of COPD, KRISTOFER, on nightly CPAP, following with pulmonology, with rhinosinusitis, depression, GERD, current smoker, with chronic tachycardia assessed by cardiology and thought to be related to her respiratory condition, was admitted due to return of dyspnea, wheezing despite having undergone a course of treatment with Augmentin and prednisone 10 days previously. Found to be in COPD exacerbation, with cough, wheezing. With respiratory symptoms was tested for COVID-19, although those results are not yet available. On questioning she provides history of significant GERD as well as history of cough being worse at night. She was started on PPI, with H2 aniket added, as well as sucralfate. She had episodes of nausea, dry heaving in the hospital. Mild alk phos elevation was noted, with fatty liver disease on ultrasonography, but without CBD dilation, with history of cholecystectomy. She has been having some persistent wheezing, however, actually does report that nocturnal cough has improved with treatment. Due to persistence of wheezing had to be started on prednisone at lower dose to reduce recurrence of GERD, with improvement. No PNA on x-ray. Weaned off any oxygen, and is feeling better. Does not qualify for oxygen on home evaluation. She was counseled extensively on smoking cessation and understands the reasons why she needs to quit. Nicotine replacement is provided. We discussed strategies to reduce GERD, which is likely the trigger of her recurrent episodes including avoiding Pepsi which she drinks in the evening, as well as subsequent follow-up with upper endoscopy after normal functioning is resumed for nonemergent medical services. Since she is stable, feeling somewhat better, she felt strong enough to return home while the COVID-19 testing is pending. Our infection control team will continue monitoring for the results and notify her once they are available. She is referred for follow-up with pulmonology for reassessment due to recurrent COPD exacerbation. Physical Exam Const: COMMON NORMALS: no apparent distress and oriented x3 HENMT: COMMON NORMALS: oropharynx normal Neck/C-Spine: COMMON NORMALS: no JVD Resp: COMMON NORMALS: normal respiratory effort AUSCULTATION: wheezes (Bilateral, less prominent) Cardio: COMMON NORMALS: no JVD, regular rhythm, S1 normal heart sound, S2 normal heart sound and no murmurs RATE: tachycardic (Regular tachycardia, chronic) RHYTHM: regular rhythm HEART SOUNDS: S1 normal and S2 normal GI: COMMON NORMALS: normal to inspection, nondistended, normoactive bowel sounds, soft to palpation and non-tender PALPATION: Yes soft Extremity: COMMON NORMALS: no joint enlargement and no pedal edema Neuro: COMMON NORMALS: oriented x3 and moves all extremities Skin: COMMON NORMALS: no rashes or lesions noted GENERAL SKIN EXAM: no rashes or lesions noted Discharge Data Data Completed and Pending: Completed Studies During Hospitalization Category Date Time Status CXRP [XR chest 1V portable [id number]] R outine Exams 09/23/19 07:41 Completed US abdomen limite d 35593 Routine Ultrasound 09/25/19 07:37 Completed Labs from last 24 hours 09/25/19 09/25/19 09/24/19 06:29 06:29 05:19 WBC 11.7 H RBC 4.21 Hgb 11.3 L Hct 37.1 MCV 88.1 MCH 26.8 L MCHC 30.5 RDW 15.9 H Plt Count 411 H MPV 10.7 H Neut % (Auto) 76.6 Lymph % (Auto) 17.8 [place] % (Auto) 4.2 Eos % (Auto) 0.2 Baso % (Auto) 0.5 Neut # (Auto) 8.9 H Lymph # (Auto) 2.1 [place] # (Auto) 0.5 Eos # (Auto) 0.0 Baso # (Auto) 0.1 Nucleated RBC % (a uto) 0 Nucleated RBCs # 0.0 Sodium 137 Potassium 4.4 Chloride 101 Carbon Dioxide 24 Anion Gap 16.4 BUN 15 Creatinine 0.8 GFR Calculation 74.7 L Glucose 119 H Calculated Osmolal ity 281 L Calcium 9.7 Total Bilirubin 0.2 AST 15 ALT 16 Alkaline Phosphata se 143 H Total Protein 7.1 Albumin 4.1 Globulin 3.0 H. pylori IgG Anti body Negative Vitals: Last Vital Signs Temp 98.4 F 09/25/19 15:21 Pulse 116 H 09/25/19 17:27 Resp 18 09/25/19 17:27 BP 110/69 09/25/19 15:21 Pulse Ox 93 09/25/19 17:27 Discharge Plan Discharge Patient Disposition: Home, Self-Care Condition: Stable Prescriptions: New sucralfate 100 mg/mL Suspension 1 g PO AC&BEDTIME Qty: 420 RF: 0 famotidine 20 mg Tablet 20 mg PO BID Qty: 60 RF: 0 nicotine 21 mg/24 hr Patch 24 Hour 1 patch transdermal DAILY Qty: 30 RF: 0 prednisone 20 mg Tablet 20 mg PO DAILY Qty: 4 RF: 0 nicotine (polacrilex) 2 mg lozenge 2 mg BUCCAL Q1H PRN (Reason: nicotine cravings) Qty: 108 RF: 0 Continued albuterol sulfate [ProAir HFA] 90 mcg/actuation HFA aerosol inhaler 2 puff INHALATION Q6H PRN (Reason: Shortness Of Breath Or Wheezing) RF: 0 Daliresp 500 mcg tablet 500 mcg PO DAILY RF: 0 Trelegy Ellipta 100-62.5-25 mcg blister with device 1 inh INHALATION Q24H RF: 0 amitriptyline 100 mg tablet 100 mg PO .hs RF: 0 hydroxyzine HCl 25 mg tablet 25 mg PO DAILY PRN (Reason: anxiety) Qty: 90 RF: 2 ropinirole 0.5 mg tablet 0.5 mg PO BID Qty: 180 RF: 4 topiramate [Topamax] 100 mg tablet 100 mg PO BID Qty: 180 RF: 2 trazodone 150 mg tablet 150 mg PO .QHS PRN (Reason: sleep) Qty: 90 RF: 2 fluticasone propionate [Flonase Allergy Relief] 50 mcg/actuation spray,suspension 1 spray INTRANASAL BID 60 Days Qty: 18.2 RF: 2 methadone 10 mg tablet 10 mg PO QID 30 Days Qty: 120 RF: 0 oxycodone-acetaminophen [Percocet] 10-325 mg tablet 1 tab PO TID PRN (Reason: pain) 30 Days Qty: 90 RF: 0 verapamil 180 mg capsule,ext rel. pellets 24 hr 180 mg PO QAM Qty: 30 RF: 3 Changed omeprazole 20 mg capsule,delayed release(DR/EC) 40 mg PO BID Qty: 120 RF: 0 Discharge Orders: Discharge Order (Routine); Ordered 09/25/19 Ordered By: Jose Chavez Referrals: Lauri Krishnan MD [Primary Care Provider] - 10/02/19 9:00 am Brittaney West MD [Physician] - 2 weeks (please call Saturday to set up a follow up appointment. Persistent dyspnea, COPD) Discharge Diet: As Directed Discharge Activity: Increase activity as tolerated, Limit activity as instructed and Cpap/Bipap as instructed Patient Instructions: COPD, Famotidine (By mouth), Sucralfate (By mouth), Prednisone (By mouth), Nicotine (Into the mouth), Nicotine (Absorbed through the skin), Dyspnea, Sleep Apnea Syndrome (DC), How to Stop Smoking (DC), Post Traumatic Stress Disorder (DC), Generalized Anxiety Disorder (DC), COPD Stoplight, Obstructive Sleep Apnea Activity Restrictions/Additional Instructions: Please adhere to the recommendations we discussed to reduce acid reflux, including avoiding food or drink (especially carbonated) for at least 3 hours before sleep or reclining, avoid spicy foods, alcohol, mint, chocolate, coffee and other foods that may lead to reflux. Elevate head of bed if possible. Long-term may consider adjustable bed or elevating bed on cinder blocks. You would benefit from subsequent endoscopic evaluation due to persistent severe reflux disease. Please discuss with your primary care doctor. Your reflux disease is thought to be contributing to your breathing symptoms, and so control of this should help with both. Please stop smoking as soon as possible as this also contributes to your breathing symptoms, progression of COPD, as well as risk of worsening inflammation and cancer in the stomach in addition to other known risks. Please remain home, avoid contact with anyone until the results are back (per printed instructions given to you). You will be contacted with results of COVID- 19 testing. If you experience any progressive worsening of shortness of breath, high fever, abdominal pain, or other abnormal symptoms, seek medical attention without delay. Discharge Date/Time: 09/25/19 18:06 Discharge Attestations Time Spent in Discharge Care*: greater than 30 min Quality Metrics Clinical Quality Measures During this hospital stay, did patient experience: None Coding Level of Care Code Acute Protective Signal Superintendent for Chg Fwd Diagnoses COPD (chronic obstructive pulmonary disease) J44.9
[2019-09-26 12:43] LABS: Coronavirus Overall Results NOT DETECTED
== END 2019-09-25 18:06 | disposition home or self-care (01) | DRG 192 ==
PROVIDERS: Admitting Provider Family Medicine; Family Provider Family Medicine; PCP Family Medicine; Visit Provider Internal Medicine
DX: J44.9 Chronic obstructive pulmonary disease, unspecified (principal); G47.33 Obstructive sleep apnea (adult) (pediatric); K21.9 Gastro-esophageal reflux disease without esophagitis; M54.9 Dorsalgia, unspecified; G89.29 Other chronic pain; F45.42 Pain disorder with related psychological factors; F32.9 Major depressive disorder, single episode, unspecified; G25.81 Restless legs syndrome; F17.210 Nicotine dependence, cigarettes, uncomplicated; F11.90 Opioid use, unspecified, uncomplicated; Z79.52 Long term (current) use of systemic steroids; Z79.83 Long term (current) use of bisphosphonates
CPT/HCPCS: 12345; 36415; 71045; 76705; 80053; 85025; 86677; 87635; 87804; 94640; 94660; 96372; G0378; G0379; J1644; J3535; J7512; J7626

== ENCOUNTER → 2019-09-30 11:02 | Outpatient (BNVA) | payer MEDICARE, MEDICAID, SELFPAY | PROVIDERS: Family Provider Family Medicine; PCP Family Medicine; Visit Provider Nurse Practitioner | DX: M54.16 Radiculopathy, lumbar region (principal); M54.9 Dorsalgia, unspecified; G47.09 Other insomnia; F17.210 Nicotine dependence, cigarettes, uncomplicated; Z79.891 Long term (current) use of opiate analgesic; Z71.6 Tobacco abuse counseling | CPT/HCPCS: 99213; 99214 ==

== ENCOUNTER → 2019-12-03 07:35 | Outpatient (BNVA) | payer MEDICARE, MEDICAID, SELFPAY | PROVIDERS: Family Provider Family Medicine; PCP Family Medicine; Visit Provider Nurse Practitioner Psychiatric/Mental Health | DX: F33.2 Major depressive disorder, recurrent severe without psychotic features (principal); F41.1 Generalized anxiety disorder; F43.12 Post-traumatic stress disorder, chronic; F17.210 Nicotine dependence, cigarettes, uncomplicated | CPT/HCPCS: 99213 ==

== ENCOUNTER → 2019-12-16 08:28 | Outpatient (BNVA) | payer MEDICARE, MEDICAID, SELFPAY | PROVIDERS: Family Provider Family Medicine; PCP Family Medicine; Visit Provider Anesthesiology | DX: G89.29 Other chronic pain (principal); M54.41 Lumbago with sciatica, right side; M54.42 Lumbago with sciatica, left side; M54.16 Radiculopathy, lumbar region; M54.9 Dorsalgia, unspecified; G47.09 Other insomnia; F17.210 Nicotine dependence, cigarettes, uncomplicated; Z71.6 Tobacco abuse counseling; Z79.891 Long term (current) use of opiate analgesic | CPT/HCPCS: 99214 ==

== ENCOUNTER 2020-01-23 03:27 | Inpatient (IN) | payer MEDICARE, MEDICAID, SELFPAY ==
[2020-01-23] VITALS (35 sets, daily range): BP systolic 91–137; BP diastolic 62–98; PULSE 101–125; RESP 12–24; TEMP 36.3–36.8; O2SAT 87–100; BMI 20.7
--- NOTE | 2020-01-23 03:45 | XRR_ITS ---
PROCEDURE INFORMATION: Exam: XR Chest, 1 View Exam date and time: 01/23/2020 3:50 AM Age: 54 years old Clinical indication: Patient HX: Severe chest pain. Anterior st elevation on 12 lead ekg. ; Additional info: Cp TECHNIQUE: Imaging protocol: XR of the chest Views: 1 view. COMPARISON: CR XR chest 1V portable [id number] 09/23/2019 7:52 AM FINDINGS: Tubes, catheters and devices: EKG leads overlie the chest. Lungs: There are increased peribronchial markings present bilaterally likely representing bronchiectasis. There is a background of emphysema. Pleural space: Unremarkable. No pleural effusion. No pneumothorax. Heart/Mediastinum: Unremarkable. No cardiomegaly. Bones/joints: Unremarkable. XR/XR chest 1V portable [id number] IMPRESSION: Emphysematous changes and bilateral bronchiectasis
--- NOTE | 2020-01-23 03:45 | ECG_ITS ---
[facility] Test Date: 2020-01-23 Pat Name: Nhung Leone Department: Room: Gender: Female Solderer: : 1965 Requested By: Sourav Ruiz Order Number: [id number] Guerin MD: Bozena Salcedo M.D. Measurements Intervals [place] Rate: 106 P: 78 VT: 165 QRS: 94 QRSD: 93 T: 46 QT: 360 QTc: 480 Interpretive Statements SINUS TACHYCARDIA BORDERLINE RIGHT AXIS DEVIATION [QRS AXIS > 90] MARKED ST ELEVATION, CONSIDER ANTERIOR INJURY [MARKED ST ELEVATION W/O NORMALLY INFLECTED T WAVE IN V2-V5] ACUTE IL Compared to ECG 11/25/2018 15:21:07 ST (T wave) deviation now present Myocardial infarct finding now present Sinus rhythm no longer present T-wave abnormality no longer present Possible ischemia no longer present Electronically Signed On 01-24-2020 12:46:04 CDT by Bozena Salcedo M.D. [id number]
[2020-01-23] MEDS: clopidogrel 300 mg Tablet 600 MG PO (03:52)
[2020-01-23] MEDS: heparin 5,000 unit/mL INJ 1 mL 4000 UNIT INJECTION (03:53)
[2020-01-23] MEDS: ondansetron 2 mg/ML SDV 2 mL 4 MG IVP (03:57)
[2020-01-23] MEDS: morphine 4 mg/mL SDV 1 mL IVP (03:57)
--- NOTE | 2020-01-23 03:57 | ED_ITS ---
HPI - Chest Pain General: Chief Complaint: Chest Pain Stated Complaint: cp Time Seen by Provider: 01/23/20 03:38 History of Present Illness: HPI narrative: 54-year-old female with no prior history of coronary disease. She presents having had 2 hours of chest d iscomfort this morning. Of her chest. She is short of breath. The pain is quite intense. She says that she had an stress test within the last year. She did not know the results. MD complaint: chest pain Onset (ago): hour(s) (2) Timing of current episode: constant Prior episodes: Yes (Mild episodes the past couple weeks.) Onset: during rest Pain location: substernal Severity: severe Quality: tightness, heaviness and tearing Exacerbating factors: nothing Associated symptoms: Reports dyspnea; Deny abdominal pain, fever(s), nausea, palpitations or vomiting Review of Systems Const: Denies: fever(s) or chills Eyes: Denies: change in vision or blurry vision ENMT: Denies: swelling of lips/tongue, change in hearing, post nasal drip or sinus pain Card: Reports: chest pain and dyspnea on exertion; Denies: palpitations, irregular heart rhythm or swelling of feet/ankles Resp: Reports: dyspnea; Denies: productive cough, non-productive cough or wheezing GI: Denies: abdominal pain, nausea, vomiting, rectal pain, hematochezia or melena : Denies: dysuria, urinary frequency, urinary urgency or hematuria Musc: Denies: neck pain or back pain Skin/Breast: Denies: rash, pruritus or erythema Neuro: Denies: headache(s), dizziness, vertigo or seizure-like activity Psych: Denies: anxiety PFSH ED PFSH: Medical History (Updated 01/23/20 @ 07:07 by Sourav Arizmendi DO) Acute anterior wall NE Acute respiratory failure Bereavement delivery delivered Chronic post-traumatic stress disorder Chronic radicular lumbar pain COPD (chronic obstructive pulmonary disease) Dyspnea Encounter for long-term use of opiate analgesic Essential (primary) hypertension Generalized anxiety disorder GERD (gastroesophageal reflux disease) Heavy cigarette smoker Herniated disc Hypokalemia Lesion of ulnar nerve, bilateral Major depressive disorder, recurrent severe without psychotic features Obstructive sleep apnea Opioid contract exists KRISTOFER on CPAP Sleep apnea, unspecified Smoker Tachycardia Ulnar nerve abnormality Surgical History H/O bilateral oophorectomy H/O skin graft History of carpal tunnel release History of cholecystectomy Family History Father Myocardial infarct, Onset Age: 45 Brother Myocardial infarct, Onset Age: 53 vague, denies any h/o stents/bypass in family members Other CAD (coronary artery disease) Social History Smoking and tobacco status: current every day smoker cigarettes Packs smoked per day: 0.5 Years cigarettes smoked: 40 Alcohol intake: current Alcohol intake frequency: holidays/special occasions only Lives independently: Yes Household members: family Current occupational status: disabled History of recent travel: No Current gender identity: Female Physical Exam Const: GENERAL APPEARANCE: well developed, in distress and ill appearing ORIENTATION/CONSCIOUSNESS: Yes oriented to person, Yes oriented to place and Yes oriented to time HENMT: COMMON NORMALS: normocephalic, external ears normal and Normal external nose present HEAD & SCALP: normocephalic; no scalp tenderness FACE & SINUS: normal facial exam NOSE: Normal external nose present and No nasal discharge present EXTERNAL EAR: Yes external ears normal THROAT: posterior oropharynx normal; no peritonsillar mass Eye: COMMON NORMALS: Equal, round and reactive pupils present, EOMs intact bilaterally and conjunctivae normal EYELID: eyelids normal CONJUNCTIVA: Yes conjunctivae normal PUPIL: Yes Equal, round and reactive pupils present Neck/C-Spine: GENERAL: No tracheal deviation Chest: COMMONS NORMALS: normal inspection of the chest CHEST: No tenderness Resp: COMMON NORMALS: clear to auscultation bilaterally EFFORT & INSPECTION: No tachypneic, No respiratory distress, No retractions, No uses accessory muscles and No tracheal deviation AUSCULTATION: clear to auscultation bilaterally, no rhonchi, no wheezes and lung sounds not diminished Cardio: COMMON NORMALS: regular rate and regular rhythm RATE: regular rate RHYTHM: regular rhythm HEART SOUNDS: no murmurs PERIPHERAL PULSES: radial pulses present GI: INSPECTION: No abdominal distension AUSCULTATION: No Hyperactive bowel sounds present and No Hypoactive bowel sounds present PALPATION: No Guarding due to palpation present (GI) and No Rigid due to palpation PERCUSSION: no dullness to percussion and no tympanic to percussion Neuro: SENSORIUM/ORIENTATION: Yes oriented to person, Yes oriented to place and Yes oriented to time Psych: COMMON NORMALS: mental status grossly normal Skin: COMMON NORMALS: no rashes or lesions noted GENERAL SKIN EXAM: no rashes or lesions noted Course Consultations: Consultation #1: Erica Time: 03:38 Vital Signs: Vital signs: Vital Signs Temperature 97.6 F 01/23/20 05:56 Pulse Rate 106 H 01/23/20 06:30 Respiratory Rate 16 01/23/20 06:30 Blood Pressure 109/81 01/23/20 06:30 Pulse Oximetry 87 L 01/23/20 06:30 MDM - Chest Pain MDM Narrative: Medical decision making narrative: 54-year-old female presenting with chest pain. She is ashen in color. EKG initially shows ST elevation in the anterior and lateral leads. It is significant. Her heart rates in the 110s. Blood pressures been 110 over 60s. Nitroglycerin sublingual did not seem to help her pain much. Morphine did. Nitroglycerin drip is hanging in the room, but not started. She has been given aspirin, nitroglycerin, heparin, Plavix. Cardiology is at the bedside Lab Data: Labs: Lab Results 01/23/20 01/23/20 01/23/20 Range/Units 03:45 03:45 03:45 WBC Cancelled Corrected WBC Cancelled RBC Cancelled Hgb Cancelled Hct Cancelled MCV Cancelled MCH Cancelled MCHC Cancelled RDW Cancelled Plt Count Cancelled MPV Cancelled Gran % Cancelled Neut % (Auto) Cancelled Lymph % (Auto) Cancelled [place] % (Auto) Cancelled Eos % (Auto) Cancelled Baso % (Auto) Cancelled Neut # (Auto) Cancelled Lymph # (Auto) Cancelled [place] # (Auto) Cancelled Eos # (Auto) Cancelled Baso # (Auto) Cancelled Absolute Gran (aut o) Cancelled Nucleated RBC % (a uto) Cancelled Nucleated RBCs # Cancelled PT 13.30 (10.5-13.3) SECO NDS INR 0.98 (0.8-1.2) Sodium 139 (136-145) mmol/L Potassium 3.4 L (3.5-5.1) mmol/L Chloride 104 (98-107) mmol/L Carbon Dioxide 23 (22-29) mmol/L Anion Gap 15.4 (5-19) BUN 6 (6-20) mg/dL Creatinine 0.7 (0.5-0.9) mg/dL GFR Calculation 87.2 L (90-130) mL/min Glucose 145 H (65-115) mg/dL Calculated Osmolal ity 286 (285-295) mOsm/k g Calcium 8.7 (8.5-10.5) mg/dL Total Bilirubin 0.2 (0.15-1.2) mg/dL AST 14 (0-32) U/L ALT 13 (0-33) U/L Alkaline Phosphata se 158 H (35-105) IU/L Troponin T Baselin e (0-10) ng/L Total Protein 7.4 (6.6-8.7) g/dL Albumin 4.3 (3.5-5.2) g/dL Globulin 3.1 (1.3-4.6) g/dL 01/23/20 01/23/20 Range/Units 03:45 04:20 WBC 14.3 H Corrected WBC RBC 4.14 Hgb 9.5 L Hct 33.1 L MCV 80.0 L MCH 22.9 L MCHC 28.7 L RDW 19.0 H Plt Count 414 H MPV 10.5 H Gran % Neut % (Auto) 73.9 Lymph % (Auto) 18.4 [place] % (Auto) 5.4 Eos % (Auto) 1.7 Baso % (Auto) 0.3 Neut # (Auto) 10.54 H Lymph # (Auto) 2.6 [place] # (Auto) 0.8 Eos # (Auto) 0.3 Baso # (Auto) 0.1 Absolute Gran (aut o) Nucleated RBC % (a uto) 0 Nucleated RBCs # 0.0 PT (10.5-13.3) SECO NDS INR (0.8-1.2) Sodium (136-145) mmol/L Potassium (3.5-5.1) mmol/L Chloride (98-107) mmol/L Carbon Dioxide (22-29) mmol/L Anion Gap (5-19) BUN (6-20) mg/dL Creatinine (0.5-0.9) mg/dL GFR Calculation (90-130) mL/min Glucose (65-115) mg/dL Calculated Osmolal ity (285-295) mOsm/k g Calcium (8.5-10.5) mg/dL Total Bilirubin (0.15-1.2) mg/dL AST (0-32) U/L ALT (0-33) U/L Alkaline Phosphata se (35-105) IU/L Troponin T Baselin e 19 H (0-10) ng/L Total Protein (6.6-8.7) g/dL Albumin (3.5-5.2) g/dL Globulin (1.3-4.6) g/dL Discharge Plan Discharge Patient Disposition: Admitted As Inpatient Admit Provider: Navi Maldonado Clinical Impression: ST elevation myocardial infarction (STEMI) Qualifiers: Involved coronary artery: LAD coronary artery Qualified Code(s): I21.02 - ST elevation (STEMI) myocardial infarction involving left anterior descending coronary artery Condition: Stable Interventions: ED Discharge Assessment Last Done: 01/23/20 04:31 ED Charges Last Done: 01/23/20 04:31 Discharge Date/Time: 01/23/20 04:32 Coding Level of Care Code ED Laborer Syrup Machine for Chg Fwd Exam Comprehensive
--- NOTE | 2020-01-23 04:13 | XACV_ITS ---
Ht: 165 cm Wt: 88 kg BSA: 2.05 m2 Gender: Female : 1965 Exam Priority: Routine Procedure(s): Procedure Description: Diagnostic procedure Procedure Description: Left Heart Catheterization Procedure Description: Coronary Angiography Diagnostic Cath Status: Emergency Diagnostic Findings Patient presented with pain typical of myocardial infarction and angina. EKG suggested ST segment elevation in leads V1 through V4. Medications in the emergency room improve the pain and decrease the ST segment elevation slightly. Coronary angiography reveals right coronary artery dominance. The left main, circumflex and right coronary arteries are normal. The LAD was open however had a hazy ulcerated 95% stenosis with thrombus in the proximal portion which was clearly the culprit area. PCI Status: Emergency PCI LVEF Assessed: Yes PCI Indication: STEMI - Immediate PCI for STEMI Interventional Findings Guide was somewhat difficult to seat. The takeoff of the LAD was at a steep angle. The wire was difficult to place. The lesion was full of thrombus. After stenting the artery regained CELENA-3 flow however there was a slight amount of thrombus just distal to the stent. Balloon angioplasty covered this nicely. I gave an Aggrastat bolus down the artery and placed her on an Aggrastat drip. Decision for PCI with Surgical Consult: No PCI for Multi-vessel Disease: No Conclusions Anterior wall MT with ulcerated thrombotic lesion of the proximal LAD stented without difficulty. Aggrastat used. Interventional RX Recommendation: medical therapy and/or counseling Diagnostic RX Recommendation: medical therapy and/or counseling Anticoagulation: Heparin Ventriculography Ejection Fraction: 40.0 % Pressures Phase:Rest AO : 97 mmHg / 71 mmHg ( 83 mmHg ) @ 12:12:00 AM 130 mmHg / 26 mmHg ( 55 mmHg ) @ 12:23:00 AM 115 mmHg / 68 mmHg ( 88 mmHg ) @ 12:25:00 AM 114 mmHg / 65 mmHg ( 87 mmHg ) @ 12:25:00 AM 117 mmHg / 69 mmHg ( 89 mmHg ) @ 12:25:00 AM 123 mmHg / 69 mmHg ( 92 mmHg ) @ 12:25:00 AM LV : 126 mmHg / 2 mmHg / @ 12:24:00 AM 113 mmHg / 1 mmHg / @ 12:25:00 AM 123 mmHg / 1 mmHg / @ 12:25:00 AM Valves Phase:DefaultPhase AV : 9.0 mmHg @ 5:47:26 AM AV Mean Gradient: 19.0 mmHg @ 5:47:26 AM Clinical Evaluation EBL: 5mL-10mL Procedural Details Procedure Consent Obtained. Admit Source: Emergency department. Identified patient by full name and date of as verbalized by the patient/guarantor. Does the consent match the physician's order: N/A Emergent. Accurate & Complete Informed Consent: N/A Emergent. Inpatient/Outpatient History & Physical on Chart: N/A Emergent. If H&P is completed, is and addenduem needed: N/A Emergent; If yes, is the addendum complete: N/A Emergent. The risks, benefits, and alternatives of sedation and/or procedure were discussed by physician. The patient agrees to continue. Procedure started. PERRLA. Strong, equal hand machine iii coremaker bilaterally. Lungs clear x 5 lobes. IV Site on Arrival: 18 gauge in the left anticubital. IV Site on Arrival: 20 gauge in the left wrist. IV Site on Arrival: Saline Lock. IV Fluids: 0.9% NaCl at KVO. 500 mL infused prior to labor contract analyst. Oxygen started at 2liters/min via nasal canula. right radial was prepped with chloroprep then draped in the usual sterile fashion. Right groin was prepped with chloroprep then draped in the usual sterile fashion. Physician notified. Baseline sample Acquired. HR: 110 BPM. Physician arrived. Physician scrubbed in. Immediate Pre-Procedure Time Out. Correct Patient: Yes; Correct Procedure: Yes; Correct Site: Yes; Correct Patient Position: Yes; Correct Supplies: Yes; Dried Flammable Prep: Yes; Blood Products Available: NA. Lidocaine 1% infiltrated to the right radial. Arterial access obtained. wire removed. Oaks guidewire was advanced through the guide catheter to lesion in the prox LAD. 6 fijian XB 3 guide catheter was inserted over the wire. Balloon inserted to lesion in the prox LAD. Multiple views taken of left coronary artery. Inflation Number : 1 A CHIO Alfaro SANDY 3.0X18 CATE -Lot Number# [id number] Expiration Date: 09/01/2021 was prepped and advanced across the Prox LAD. The stent was deployed at 12 BILL for 0:47 seconds. Deployment Balloon out. Inflation number: 2 The stent balloon was then re-inflated across the Prox LAD to 10 BILL for 0:15 seconds. Inflation number: 3 The stent balloon was then re-inflated across the Prox LAD to 10 BILL for 0:15 seconds. Balloon and wire out. A CRD 5F JR4 Diagnostic Catheter was advanced over the wire and used for Right coronary angiography. Guide catheter out. Wire out. Multiple views taken of right coronary artery. A 5 fijian Angled Pig catheter in over wire. Wire removed. LV gram performed in PARK @ 10 mL/second for a total of 30 mL. EDP Sample taken: LV 126/2,22; HR: 110 BPM; SpO2: 96%. EDP Sample taken: LV 113/1,18; HR: 75 BPM; SpO2: 95%. Pullback taken: LV 123/1,25; AO 115/68(88); Mean: 19mmHg, Peak to Peak: 9mmHg, SEP: 10sec/min; HR: 101 BPM; SpO2: 95%. Catheter out. Physician scrubbed out. Medication's Wasted: Lidocaine 1% = 15 mL. Medication's Wasted: Heparin = 1000 units. Medication's Wasted: Nitro = 49.8 mg. Medication's Wasted: Fentanyl = 50 mg. Total IV fluids: 75 mL. Omnipaque 178mL. [facility] Clinical Fraility Score: 4: Vulnerable. Business Continuity Strategy Director Indications: ACS <= 24 hours. Chest Pain Symptom Assessment: Typical Angina Symptoms. Cardiovascular Instability: No. Current diagnosis: STEMI. TR band placed. Hemostasis obtained. A TR Band was successful obtaining hemostatsis at the Right Radial artery insertion site. PERRLA. Strong, equal hand machine iii coremaker bilaterally. No VTE prophylaxis required. PCI Indication: STEMI. Post-op diagnosis: STEMI. Complications: None. Estimated blood loss: 5mL-10mL. Procedure completed. Patient transferred by wheelchair to 1st floor. Vital chart was stopped. Site: Right Radial artery Sheath Size: 6 Fr Hemostasis Method: TR Band Hemostasis Success: Successful Procedure Medications Start: 4:39 AM Stop: 4:39 AM Medication: Fentanyl Amount: 50 mcg Route: I.V. Start: 4:39 AM Stop: 4:39 AM Medication: Versed Amount: 1 mg Route: I.V. Start: 4:50 AM Stop: 4:50 AM Medication: Verapamil Amount: 5 mg Route: I.A. Start: 4:50 AM Stop: 4:50 AM Medication: Nitrogylcerin Amount: 200 mcg Route: I.A. Start: 4:50 AM Stop: 4:50 AM Medication: Versed Amount: 1 mg Route: I.V. Start: 5:06 AM Stop: 5:06 AM Medication: Aggrastat 12.5 mg/250 mL Amount: ml Route: I.V. bolus Start: 5:07 AM Stop: 5:07 AM Medication: Aggrastat 12.5 mg/250 mL Amount: 15.8 ml/hr Route: I.VDayne garza I, the attending physician, have reviewed and verified all procedure medications. Yes, all medications given per verbal order History/Risk Factors Hypertension: No Dyslipidemia: No Peripheral Arterial Disease (PAD): No Myocardial Infarction (MT): No Obesity: No Renal Disease: No Prior Interventions PCI: No CABG: No Valve Surgery: No Report Signatures Finalized by:Dr. Navi Maldonado MD on 01/24/2020 10:31:09 AM
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
[2020-01-23 04:14] LABS: Alanine Aminotransferase 13 U/L (0-33); Albumin Level 4.3 g/dL (3.5-5.2); Alkaline Phosphatase 158 IU/L (35-105); Anion Gap 15.4 (5-19); Aspartate Amino Transferase 14 U/L (0-32); Blood Urea Nitrogen 6 mg/dL (6-20); Calcium 8.7 mg/dL (8.5-10.5); Carbon Dioxide 23 mmol/L (22-29); Chloride 104 mmol/L (98-107); Globulin 3.1 g/dL (1.3-4.6); Glomerular Filtration Rate 87.2 mL/min (90-130); Glucose 145 mg/dL (65-115); INR 0.98 (0.8-1.2); Osmolality Calculated 286 mOsm/kg (285-295); Potassium 3.4 mmol/L (3.5-5.1); Sodium 139 mmol/L (136-145); Total Bilirubin 0.2 mg/dL (0.15-1.2); Total Protein 7.4 g/dL (6.6-8.7)
[2020-01-23 04:16] LABS: Troponin(5th) Baseline 19 ng/L (0-10)
[2020-01-23 04:23] LABS: Basophils # 0.1 10^3/uL (0.0-0.1); Basophils % 0.3 %; Eosinophils # 0.3 10^3/uL (0.0-0.8); Eosinophils % 1.7 %; Hematocrit 33.1 % (37.0-47.0); Hemoglobin 9.5 g/dL (11.5-15.3); Lymphocytes # 2.6 10^3/uL (0.8-4.8); Lymphocytes % 18.4 %; Mean Corpuscular HGB Conc 28.7 g/dL (30.0-36.0); Mean Corpuscular Hemoglobin 22.9 pg (28.0-34.0); Mean Platelet Volume 10.5 fL (7.4-10.4); Monocytes # 0.8 10^3/uL (0.2-0.9); Monocytes % 5.4 %; Neutrophils # 10.54 10^3/uL (1.8-7.7); Neutrophils % 73.9 %; Nucleated Red Blood Cells % 0 %; Platelet Count 414 10^3/cmm (130-400); Red Blood Count 4.14 10^6/uL (4.1-5.3); White Blood Count 14.3 10^3/uL (4.0-10.0)
[2020-01-23] MEDS: methadone 10 mg Tablet PO ×3 (06:14→17:36)
[2020-01-23] MEDS: sodium chloride 0.9% 1,000 ML 100 ML IV (06:15)
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
[2020-01-23] MEDS: budesonide 0.5 mg/2 mL Neb INHALATION ×2 (07:39→20:13)
[2020-01-23 08:11] LABS: Troponin 5 2HR 149.8 ng/L (0-10); Troponin 5 2HR Delta 130.8 ABS# (0-10)
--- NOTE | 2020-01-23 09:45 | ECG_ITS ---
[facility] Test Date: 2020-01-23 Pat Name: Nhung Leone Department: Room: 107 Gender: Female Whey Department Operator: : 1965 Requested By: Sourav Ruiz Order Number: [id number] Guerin MD: Bozena Salcedo M.D. Measurements Intervals [place] Rate: 101 P: 37 IN: 140 QRS: 74 QRSD: 99 T: 88 QT: 366 QTc: 476 Interpretive Statements SINUS TACHYCARDIA ST and T wave abnormality consider anterior ischemia Compared to ECG 01/23/2020 03:45:49 ST (T wave) deviation no longer present Myocardial infarct finding no longer present Electronically Signed On 01-24-2020 12:56:35 CDT by Bozena Salcedo M.D. [id number]
[2020-01-23] MEDS: montelukast sodium 10 mg Tablet PO (09:49)
[2020-01-23] MEDS: clopidogrel 75 mg Tablet PO (09:49)
[2020-01-23] MEDS: pantoprazole DR 40 mg Tablet PO ×2 (09:49→17:36)
[2020-01-23] MEDS: metoprolol succinate ER (24 HR) 25 mg Tablet 12.5 MG PO (09:49)
[2020-01-23] MEDS: aspirin 81 mg EC Tablet PO (09:49)
[2020-01-23] MEDS: topiramate 100 mg Tablet PO ×2 (09:49→17:36)
[2020-01-23] MEDS: duloxetine 60 mg Capsule PO (09:49)
[2020-01-23 11:30] LABS: Troponin 5 6HR 223.7 ng/L (0-10); Troponin 5 6HR Delta 204.7 ng/L (0-12)
--- NOTE | 2020-01-23 13:30 | PC.NURSE ---
AT 1215 DC'D PATIENT'S IV FLUIDS PER DR. VILLAR'S ORDER.
--- NOTE | 2020-01-23 19:53 | PC.NURSE ---
ROunding: Patient is sitting up in bed playing on her tablet. Patient denies any pain at this time. Patient R wrist is clean dry and intact. No hematoma noted, good pulses, cap refill, and warmth noted. Will continue to monitor.
[2020-01-23] MEDS: atorvastatin 40 mg Tablet PO (20:53)
[2020-01-24] VITALS (12 sets, daily range): BP systolic 95–130; BP diastolic 64–86; PULSE 99–122; RESP 16–22; TEMP 36.4–37.2; O2SAT 90–96
[2020-01-24] MEDS: methadone 10 mg Tablet PO ×5 (00:11→23:31)
--- NOTE | 2020-01-24 05:16 | PC.NURSE ---
End of shift: Patient has had a uneventful shift. Patient has had no complaints of pain. Patient right wrist dressing is clean dry and intact no hematoma noted. Good radial pulses, good cap refill and warmth. Will continue to montior
[2020-01-24 06:17] LABS: Basophils # 0.1 10^3/uL (0.0-0.1); Basophils % 0.2 %; Eosinophils % 0.1 %; Hematocrit 30.6 % (37.0-47.0); Hemoglobin 8.8 g/dL (11.5-15.3); Lymphocytes # 3.5 10^3/uL (0.8-4.8); Lymphocytes % 15.7 %; Mean Corpuscular HGB Conc 28.8 g/dL (30.0-36.0); Mean Corpuscular Hemoglobin 23.3 pg (28.0-34.0); Mean Platelet Volume 9.9 fL (7.4-10.4); Monocytes # 1.5 10^3/uL (0.2-0.9); Monocytes % 6.6 %; Neutrophils # 17.08 10^3/uL (1.8-7.7); Neutrophils % 76.9 %; Nucleated Red Blood Cells % 0 %; Platelet Count 483 10^3/cmm (130-400); Red Blood Count 3.78 10^6/uL (4.1-5.3); White Blood Count 22.2 10^3/uL (4.0-10.0)
[2020-01-24 06:28] LABS: Anion Gap 10.9 (5-19); Blood Urea Nitrogen 17 mg/dL (6-20); Calcium 9.3 mg/dL (8.5-10.5); Carbon Dioxide 28 mmol/L (22-29); Chloride 102 mmol/L (98-107); Glomerular Filtration Rate 87.2 mL/min (90-130); Glucose 115 mg/dL (65-115); Osmolality Calculated 281 mOsm/kg (285-295); Potassium 3.9 mmol/L (3.5-5.1); Sodium 137 mmol/L (136-145)
--- NOTE | 2020-01-24 07:29 | PM.PN ---
Subjective Subjective: Interval history: Nhung is doing well this morning after her anterior wall ND and LAD stenting early yesterday morning. No problems overnight. No arrhythmias, no heart failure, no chest pain. Medications: Reviewed: Yes Vitals/I&O/Wt Last Vital Signs Temp 98.0 F 01/24/20 07:17 Pulse 117 H 01/24/20 07:17 Resp 18 01/24/20 07:17 BP 111/78 01/24/20 07:17 Pulse Ox 95 01/24/20 07:17 01/23/20 01/24/20 01/24/20 22:59 06:59 14:59 Intake Total 1979 450 / 2430 Balance 500 1979 450 / 2430 Weight last 48 hrs Weight 125 lb Physical Exam Narrative: EXAM NARRATIVE: GENERAL: General she looks and feels well HEENT: Exam within normal limits. NECK: Supple without jugular vein distention. The carotid upstroke is normal without bruits. BACK: Exam normal. LUNGS: Clear. HEART: Regular rate and rhythm. ABDOMEN: Benign without organomegaly or tenderness. EXTREMITIES: No edema. The right radial artery entry site is flat, dry without hematoma or bleeding NEUROLOGIC: Exam normal. SKIN: Unremarkable. Data : 01/24/20 06:08 01/24/20 06:08 A&P Assessment and plan (1) ST elevation myocardial infarction (STEMI): Status: Acute Qualifiers: Involved coronary artery: LAD coronary artery Qualified Code(s): I21.02 - ST elevation (STEMI) myocardial infarction involving left anterior descending coronary artery (2) Acute anterior wall ND: Status: Acute (3) Essential (primary) hypertension: Status: Acute (4) Chronic hypercapnic respiratory failure: Status: Acute (5) Heavy cigarette smoker: Status: Acute (6) Chronic radicular lumbar pain: Status: Chronic (7) Tachycardia: Status: Acute (8) COPD (chronic obstructive pulmonary disease): Status: Acute Additional A&P Information Her heart rate runs consistently above 100 but that has been the case as an outpatient. I will adjust the medications to try to bring the heart rate down somewhat. We will have to be careful with beta-blockers with her underlying COPD. Attestations Medical Necessity Statement*: Patient requires continued hospitalization for management of an acute anterior wall myocardial infarction Coding Level of Care Code Established Pt Acute Radio Journalist for Chg Fwd Patient Type Established History Detailed Exam Detailed Medical Decision Making Moderate Complexity Diagnoses ST elevation myocardial infarction (STEMI) I21.02 Involved coronary artery: LAD coronary artery Acute anterior wall ND I21.09 Essential (primary) hypertension I10 Chronic hypercapnic respiratory failure J96.12 Heavy cigarette smoker F17.210 Chronic radicular lumbar pain M54.16; G89.29 Tachycardia R00.0 COPD (chronic obstructive pulmonary disease) J44.9
[2020-01-24] MEDS: budesonide 0.5 mg/2 mL Neb INHALATION (08:59)
[2020-01-24] MEDS: montelukast sodium 10 mg Tablet PO (09:29)
[2020-01-24] MEDS: clopidogrel 75 mg Tablet PO (09:29)
[2020-01-24] MEDS: metoprolol succinate ER (24 HR) 25 mg Tablet PO (09:29)
[2020-01-24] MEDS: topiramate 100 mg Tablet PO ×2 (09:30→17:21)
[2020-01-24] MEDS: duloxetine 60 mg Capsule PO (09:30)
[2020-01-24] MEDS: aspirin 81 mg EC Tablet PO (09:30)
[2020-01-24] MEDS: pantoprazole DR 40 mg Tablet PO ×2 (09:30→17:21)
--- NOTE | 2020-01-24 12:41 | PC.NURSE ---
PATIENT AMBULATED WITH ASSISTANCE IN CSU HALLWAY. A FEW FEET BEFORE THE PATIENT RETURNED TO HER HOSPITAL ROOM SHE BECAME NAUSEAS AND VOMITED TWICE. PATIENT STATES THAT SHE IS FEELING A LITTLE BETTER. DR. VILLAR NOTIFIED AND ORDERED ZOFRAN. DISCUSSED TACHYCARDIA WITH DR. VILLAR WELL. WILL CONTINUE TO MONITOR.
[2020-01-24] MEDS: ondansetron 2 mg/ML SDV 2 mL 4 MG IVP (12:51)
[2020-01-24] MEDS: acetaminophen 325 mg Tablet 650 MG PO (14:30)
[2020-01-24 17:36] LABS: Glucose Point of Care 114 mg/dL (70-110)
[2020-01-24] MEDS: atorvastatin 40 mg Tablet PO (19:56)
--- NOTE | 2020-01-24 22:17 | PC.NURSE ---
Patient does not have any complaints at this time. Right wrist dressing clean and dry. No hematoma noted at this time. Will monitor.
[2020-01-25 03:40] VITALS: BP 96/52; PULSE 101; RESP 16; TEMP 36.4; O2SAT 90
[2020-01-25 05:16] VITALS: RESP 16
[2020-01-25] MEDS: methadone 10 mg Tablet PO (05:16)
--- NOTE | 2020-01-25 06:07 | PC.NURSE ---
Patient does not have any complaints at this time. Patient wore her CPAP for most of the night and is now on 1 L NC. Will monitor.
[2020-01-25 07:27] VITALS: BP 110/60; PULSE 113; RESP 24; TEMP 36.9; O2SAT 95
--- NOTE | 2020-01-25 07:28 | P.DS_ITS ---
Discharge Providers Date of Admission: 01/23/20 05:54 Date of Discharge: January 25, 2020 Attending Provider at Admission: Navi Maldonado MD Attending Provider at Discharge: Navi Maldonado MD Primary Care Provider: Lauri Krishnan MD Diagnoses at Discharge Discharge Diagnosis (1) ST elevation myocardial infarction (STEMI): Status: Acute Qualifiers: Involved coronary artery: LAD coronary artery Qualified Code(s): I21.02 - ST elevation (STEMI) myocardial infarction involving left anterior descending coronary artery (2) Acute anterior wall AZ: Status: Acute (3) Essential (primary) hypertension: Status: Acute (4) Chronic hypercapnic respiratory failure: Status: Acute (5) Heavy cigarette smoker: Status: Acute (6) Chronic radicular lumbar pain: Status: Chronic (7) Tachycardia: Status: Acute (8) COPD (chronic obstructive pulmonary disease): Status: Acute Reason for Visit Reason for Visit: cp Brief History: Patient came to the hospital with an acute anterior wall AZ by EKG. Hospital Course Hospital Course: She was taken to the catheterization laboratory immediately. The medications given in the emergency room probably opened the LAD. It was open but there was a significant 95% residual stenosis with plaque rupture and large thrombus burden. This underwent primary stenting. Following this there was some haziness distal to the stent which was probably some residual thrombus. I performed a plain old balloon angioplasty of this area which improved the appearance. She received an Aggrastat bolus right down the coronary artery and then an Aggrastat drip. The procedure was performed from the right radial artery. There were no radial artery complications. The patient did well during her hospital stay. On the day before discharge she had some nausea and vomiting which was treated with Zofran and resolved. She thought it was because she did not have any caffeine during her hospital stay. There were no arrhythmias and no evidence of congestive heart failure was noted. She has been seen in the cardiology clinic for sinus tachycardia and has been placed on verapamil. She was tachycardic throughout her entire hospitalization heart rates running in the 110-120 range. I did add a beta-aniket however we will send her home on the verapamil and the beta-aniket. She does not have any contraindication to beta-blockers other than COPD but that did not seem to w orsen during her hospital stay. Physical Exam Narrative: EXAM NARRATIVE: GENERAL: In general she looks and feels well HEENT: Exam within normal limits. NECK: Supple without jugular vein distention. The carotid upstroke is normal without bruits. BACK: Exam normal. LUNGS: Decreased breath sounds bilaterally with occasional wheezes HEART: Regular rate and rhythm. Sinus tachycardia ABDOMEN: Benign without organomegaly or tenderness. EXTREMITIES: No edema. NEUROLOGIC: Exam normal. SKIN: Unremarkable. 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 Routin e Exams 01/23/20 04:13 Completed XR chest 1V leda ble 95095 Stat Exams 01/23/20 03:45 Completed Labs from last 24 hours 01/24/20 17:32 POC Glucose 114 Vitals: Last Vital Signs Temp 97.6 F 01/25/20 03:40 Pulse 101 H 01/25/20 03:40 Resp 16 01/25/20 05:16 BP 96/52 01/25/20 03:40 Pulse Ox 90 01/25/20 03:40 Discharge Plan Discharge Patient Disposition: Home Condition: Stable Prescriptions: New aspirin 81 mg Tablet,Delayed Release (Dr/Ec) 81 mg PO DAILY Qty: 100 RF: 1 atorvastatin 40 mg Tablet 40 mg PO BEDTIME Qty: 30 RF: 3 lisinopril 2.5 mg Tablet 2.5 mg PO DAILY Qty: 90 RF: 2 metoprolol succinate 25 mg Tablet Extended Release 24 Hr 25 mg PO DAILY Qty: 180 RF: 2 clopidogrel 75 mg Tablet 75 mg PO DAILY Qty: 90 RF: 2 Continued albuterol sulfate [ProAir HFA] 90 mcg/actuation HFA aerosol inhaler 2 puff INHALATION Q6H PRN (Reason: Shortness Of Breath Or Wheezing) RF: 0 fluticasone propionate [Flonase Allergy Relief] 50 mcg/actuation spray,suspension 1 spray INTRANASAL BID 60 Days Qty: 18.2 RF: 2 albuterol sulfate 2.5 mg /3 mL (0.083 %) solution for nebulization 2.5 mg INHALATION QID RF: 0 hydroxyzine HCl 25 mg tablet 25 mg PO BID PRN (Reason: anxiety) Qty: 180 RF: 2 duloxetine [Cymbalta] 60 mg capsule,delayed release(DR/EC) 60 mg PO .morning Qty: 90 RF: 2 ropinirole 0.5 mg tablet 0.5 mg PO BID Qty: 180 RF: 4 topiramate [Topamax] 100 mg tablet 100 mg PO BID Qty: 180 RF: 2 trazodone 150 mg tablet 150 mg PO .QHS PRN (Reason: sleep) Qty: 90 RF: 2 montelukast [Singulair] 10 mg tablet 10 mg PO DAILY 30 Days Qty: 30 RF: 3 prednisone 5 mg tablet 5 mg PO .COMPLEX Qty: 30 RF: 3 budesonide [Pulmicort] 0.5 mg/2 mL suspension for nebulization 0.5 mg INHALATION BID 30 Days Qty: 120 RF: 3 Perforomist 20 mcg/2 mL solution for nebulization 2 ml INHALATION Q12H 30 Days Qty: 120 RF: 3 revefenacin 175 mcg/3 mL solution for nebulization 175 mcg INHALATION DAILY 30 Days Qty: 90 RF: 3 verapamil 180 mg capsule,ext rel. pellets 24 hr 180 mg PO QAM Qty: 30 RF: 3 methadone 10 mg tablet 10 mg PO Q6H 30 Days Qty: 120 RF: 0 oxycodone-acetaminophen [Percocet] 10-325 mg tablet 1 tab PO TID PRN (Reason: pain) 30 Days Qty: 90 RF: 0 amitriptyline 100 mg tablet 100 mg PO .hs Qty: 30 RF: 1 naproxen 500 mg tablet 500 mg PO BID 30 Days Qty: 60 RF: 1 omalizumab 150 mg recon soln 150 mg SUBCUT .G30Ipsp Qty: 2 RF: 3 omeprazole 20 mg capsule,delayed release(DR/EC) 40 mg PO BID Qty: 120 RF: 0 Discharge Orders: Discharge Order (Routine); Ordered 01/25/20 Ordered By: Navi Maldonado Referrals: Dulce Robertson FNP [Nurse Practitioner] - 7-10 days Bozena Salcedo MD [Physician] - 3 months Discharge Diet: As Directed Discharge Activity: Limit activity as instructed Activity Restrictions/Additional Instructions: No lifting over 5 pounds for 2 days. Be sure to review medication list and take new medications as prescribed along with previously prescribed medications. Discharge Attestations Time Spent in Discharge Care*: less than 30 min Specific Discharge Activities: Specific discharge activities: educating patient Time Spent in Smoking Cessation: Time spent discussing smoking cessation with patient: 3 to 10 minutes Quality Metrics Clinical Quality Measures During this hospital stay, did patient experience: AMI Clinical Trial Participant: No Contraindication to aspirin (AMI): Aspirin given Contraindication to statin: Statin prescribed Contraindication to PCI: PCI performed Coding Level of Care Code Established Pt Acute Supervisor Assembly Department for Gracie Laguna Patient Type Established History Detailed Exam Detailed Medical Decision Making Moderate Complexity Diagnoses ST elevation myocardial infarction (STEMI) I21.02 Involved coronary artery: LAD coronary artery Acute anterior wall AZ I21.09 Essential (primary) hypertension I10 Chronic hypercapnic respiratory failure J96.12 Heavy cigarette smoker F17.210 Chronic radicular lumbar pain M54.16; G89.29 Tachycardia R00.0 COPD (chronic obstructive pulmonary disease) J44.9
--- NOTE | 2020-01-25 07:31 | PC.NURSE ---
PATIENT RESTING IN BED WATCHING TV ; PATIENT STATED THAT SHE HAD A HEADACHE BUT THE COFFEE WAS HELPING ; PATIENT REQUESTED SUGAR AND SUBSTITUTES WERE PROVIDED ; PATIENT DENIED ANY OTHER PAIN OR SOB ; RIGHT WRIST LHC SITE DRESSING C/D/I AND DISTAL PULSES PRESENT
[2020-01-25 08:18] VITALS: BP 110/60; PULSE 113; RESP 24; TEMP 36.9; O2SAT 95
--- NOTE | 2020-01-25 08:38 | PC.NURSE ---
PATIENT GIVEN DISCHARGE INSTRUCTIONS AND VERBALIZED UNDERSTANDING ; VSS ; IV REMOVED AND PRESSURE DRESSING APPLIED WITH NO BLEEDING NOTED ; RIGHT WRIST C SITE DRESSING C/D/I WITH DISTAL PULSES PRESENT ' PATIENT REQUESTED MEDS TO BED AND THE MEDS LIST AND FACE SHEET FAXED TO [facility] ; PATIENT IS WAITING ON PHARMACY AND RIDE
--- NOTE | 2020-01-25 09:23 | PC.NURSE ---
PATIENT STATED THAT SHE WOULD BE PICKING UP HER MEDICATIONS AT [facility] INSTEAD OF USING [facility] ; [facility] HAS SPOKEN TO PATIENT AND CONFIRMED THIS WITH HER
[2020-01-25] MEDS: aspirin 81 mg EC Tablet PO (09:25)
[2020-01-25] MEDS: lisinopril 2.5 mg Tablet PO (09:26)
[2020-01-25] MEDS: metoprolol succinate ER (24 HR) 25 mg Tablet PO (09:26)
[2020-01-25] MEDS: clopidogrel 75 mg Tablet PO (09:26)
[2020-01-25] MEDS: duloxetine 60 mg Capsule PO (09:26)
[2020-01-25] MEDS: topiramate 100 mg Tablet PO (09:27)
[2020-01-25] MEDS: pantoprazole DR 40 mg Tablet PO (09:27)
[2020-01-25] MEDS: montelukast sodium 10 mg Tablet PO (09:27)
[2020-01-25 09:40] VITALS: PULSE 110; RESP 18; O2SAT 94
--- NOTE | 2020-01-25 09:48 | PC.NURSE ---
PATIENT TO EXIT VIA WHEELCHAIR TO POV WITH NO ISSUES
--- NOTE | 2020-01-25 13:16 | PC.RESP ---
Smoking Cessation and Pulmonary Rehab information sent to patient.
== END 2020-01-25 09:48 | disposition home or self-care (01) | DRG 281 ==
LOC: ER 03:44 → CCL 04:07 → CSU 05:55
PROVIDERS: Emergency Medicine; Admitting Provider Internal Medicine Cardiovascular Disease; PCP Family Medicine; Visit Provider Internal Medicine Cardiovascular Disease
PROC: 4A023N7 Measurement of Cardiac Sampling and Pressure, Left Heart, Percutaneous Approach (ICD-10-PCS; principal; 2020-01-23 04:00)
PROC: 4A023N7 Measurement of Cardiac Sampling and Pressure, Left Heart, Percutaneous Approach (ICD-10-PCS; 2020-01-23 04:00)
DX: I21.02 ST elevation (STEMI) myocardial infarction involving left anterior descending coronary artery (principal); J96.12 Chronic respiratory failure with hypercapnia; I10 Essential (primary) hypertension; J44.9 Chronic obstructive pulmonary disease, unspecified; F17.210 Nicotine dependence, cigarettes, uncomplicated; G89.29 Other chronic pain; M54.5 Low back pain; R00.0 Tachycardia, unspecified
CPT/HCPCS: 12345; 36415; 36416; 71045; 80048; 80053; 82962; 84484; 85025; 85610; 93005; 93452; 94640; 96375; 99283; C1769; C1874; C1887; C1894; C9606; J1644; J2250; J2270; J2405; J2930; J3010; J3246; J3490; J7030; J7626; Q9967

== ENCOUNTER → 2020-02-02 15:19 | Outpatient (BNVA) | payer MEDICARE, MEDICAID, SELFPAY | PROVIDERS: PCP Family Medicine; Visit Provider Nurse Practitioner Family | DX: I25.2 Old myocardial infarction (principal); F17.210 Nicotine dependence, cigarettes, uncomplicated | CPT/HCPCS: 80048 ==

== ENCOUNTER 2020-02-09 22:58 | Inpatient (IN) | payer MEDICARE, MEDICAID, SELFPAY ==
[2020-02-09 23:00] VITALS: BP 96/69; PULSE 109; RESP 22; O2SAT 94; BMI 32.4
--- NOTE | 2020-02-09 23:01 | ECG_ITS ---
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 Measurements Intervals [place] Rate: 107 P: -81 [place]: 135 QRS: 77 QRSD: 82 T: 97 QT: 327 QTc: 437 Interpretive Statements JUNCTIONAL TACHYCARDIA ST DEVIATION AND MODERATE T-WAVE ABNORMALITY, CONSIDER ANTERIOR ISCHEMIA [-0.1+ mV T WAVE IN V3/V4] Compared to ECG 01/23/2020 07:32:32 Junctional tachycardia now present T-wave abnormality now present Sinus tachycardia no longer present Possible ischemia still present Electronically Signed On 02-10-2020 0:31:12 CDT by Gilmar Malhotra M.D. [id number]
[2020-02-09 23:14] VITALS: BP 96/69; PULSE 105; RESP 28; O2SAT 96
[2020-02-09] MEDS: sodium chloride 0.9% 1,000 ML 100 ML IV (23:14)
[2020-02-09 23:15] VITALS: BP 96/69; PULSE 105; RESP 28; O2SAT 96
--- NOTE | 2020-02-09 23:16 | ED_ITS ---
HPI - Chest Pain General: Chief Complaint: Chest Pain Stated Complaint: CP Time Seen by Provider: 02/09/20 23:00 Source: patient and EMS Mode of arrival: EMS Limitations: no limitations History of Present Illness: HPI narrative: Nhung is a very nice 54-year-old female who comes in complaining of chest pain. She describes this pain as moderate to severe. She was at home watching TV when the pain began about 2 hours ago. Patient had radiation to both arms and was short of breath but denies any nausea or vomiting or diaphoresis. Of note the patient was here recently with an acute NV and she states that these symptoms felt the same as it did at that time. EMS was called and the patient received 2 nitroglycerin in route she had complete resolution of the pain sensation. She then later developed a pressure sensation in her chest which she rates currently as a 2 or 3 out of 10. Other than the nitroglycerin there were no aggravating or alleviating factors. The patient denies any cough or fever. She denies any leg pain or swelling. The patient currently states she feels better. Associated symptoms: Reports dyspnea; Deny abdominal pain, diaphoresis, fever(s), nausea, palpitations, syncope or vomiting Review of Systems Const: Denies: fever(s), chills, body aches, fatigue, malaise or diaphoresis Eyes: Denies: change in vision, blurry vision, photophobia, eye discomfort, eye discharge or eye redness ENMT: Denies: throat pain, odynophagia, hoarseness, swelling of lips/tongue, ear or mastoid pain, ear discharge, change in hearing or nasal discharge Card: Reports: chest pain; Denies: palpitations, irregular heart rhythm, edema, lightheadedness, syncope, pre-syncope, dyspnea on exertion or orthopnea Resp: Reports: dyspnea; Denies: productive cough, non-productive cough, wheezing, hemoptysis or chest congestion GI: Denies: abdominal pain, nausea, vomiting, hematemesis, coffee ground emesis, heartburn, diarrhea, constipation, GI cramping, hematochezia or melena : Denies: flank pain, dysuria, urinary frequency, urinary urgency or hematuria Musc: Denies: neck pain, back pain, extremity pain, extremity swelling, joint pain, joint swelling, joint redness, joint warmth or joint stiffness Skin/Breast: Denies: rash, pruritus, erythema or skin tenderness Neuro: Denies: headache(s), numbness in extremities, weakness in extremities, sensory changes, lack of coordination, difficulty walking, dizziness, vertigo, confusion, Slurred speech present or seizure-like activity Keith/Lymph: Denies: easy bruising, easy bleeding, petechiae, purpura or enlarged lymph nodes All/Imm: Denies: urticaria, throat swelling, tongue swelling, facial swelling or acute wheezing PFSH ED PFSH: Medical History Acute anterior wall NV Acute respiratory failure Bereavement delivery delivered Chronic post-traumatic stress disorder Chronic radicular lumbar pain COPD (chronic obstructive pulmonary disease) Dyspnea Encounter for long-term use of opiate analgesic Essential (primary) hypertension Generalized anxiety disorder GERD (gastroesophageal reflux disease) Heavy cigarette smoker Herniated disc Hypokalemia Lesion of ulnar nerve, bilateral Major depressive disorder, recurrent severe without psychotic features Obstructive sleep apnea Opioid contract exists KRISTOFER on CPAP Sleep apnea, unspecified Smoker Tachycardia Ulnar nerve abnormality Surgical History H/O bilateral oophorectomy H/O skin graft History of carpal tunnel release History of cholecystectomy Family History Father Myocardial infarct, Onset Age: 45 Brother Myocardial infarct, Onset Age: 53 vague, denies any h/o stents/bypass in family members Other CAD (coronary artery disease) Social History Smoking and tobacco status: former smoker Quit status (tobacco): has quit using tobacco Year quit tobacco: 2019 PPD x 40 Years Alcohol intake: current Alcohol intake frequency: holidays/special occasions only Lives independently: Yes Household members: family Current occupational status: disabled History of recent travel: No Current gender identity: Female Physical Exam Const: COMMON NORMALS: no acute distress, patient oriented x3, no limitations, healthy appearing and well nourished GENERAL APPEARANCE: cooperative, well kempt and well developed HENMT: COMMON NORMALS: normocephalic, atraumatic, external ears normal, EAC's normal and Normal external nose present HEAD & SCALP: normal to inspection, normocephalic and atraumatic FACE & SINUS: normal facial exam and face symmetric NOSE: Normal external nose present and Normal nares present EXTERNAL EAR: Yes external ears normal EXTERNAL AUDITORY CANAL: EAC's normal MOUTH: Normal oral and palatal mucosa present, lip normal and tongue normal Eye: COMMON NORMALS: Equal, round and reactive pupils present and conjunctivae normal GENERAL EYE: appearance normal, both eyes and all related structures ALIGNMENT: Yes alignment normal PERIORBITAL: periorbital findings normal EYELID: eyelids normal CONJUNCTIVA: Yes conjunctivae normal SCLERA: sclerae normal PUPIL: Yes Equal, round and reactive pupils present Neck/C-Spine: COMMON NORMALS: full ROM, no lymphadenopathy, supple, no meningeal signs and no JVD GENERAL: Yes normal visual inspection and Yes trachea midline Chest: COMMONS NORMALS: normal inspection of the chest and normal palpation of entire chest wall Resp: COMMON NORMALS: normal respiratory effort, No retractions, No use of accessory muscles and clear to auscultation bilaterally EFFORT & INSPECTION: Yes able to speak in complete sentences and Yes symmetric chest movement AUSCULTATION: clear to auscultation bilaterally, no crackles, no rales, no rhonchi and no wheezes Cardio: COMMON NORMALS: no JVD, regular rate, regular rhythm, S1 normal heart sound present and S2 normal heart sound present RATE: regular rate RHYTHM: regular rhythm HEART SOUNDS: S1 normal heart sound present, S2 normal heart sound present, no click, no gallops, no murmurs, no rubs and abnormal split S2 GI: COMMON NORMALS: Soft to palpation and No hepatosplenomegaly present PALPATION: Yes Soft to palpation, No Tenderness to palpation present (GI), No Guarding due to palpation present (GI), No Rigid due to palpation, Yes No hepat osplenomegaly present, No Hernia present, No Palpable mass present and No Pulsatile mass present : COMMON NORMALS: Yes no CVA tenderness BLADDER/KIDNEY EXAM: Yes no CVA tenderness EXTERNAL FEMALE EXAM: No Hernia present Back/Pelvis: COMMON NORMALS: no CVA tenderness, thoracic and lumbar spine normal to inspection, no thoracic nor lumbar tenderness and thoraco-lumbar ROM normal Extremity: COMMON NORMALS: normal to inspection, full ROM, capillary refill normal, no joint enlargement, no clubbing, cyanosis or edema and no calf tenderness Neuro: COMMON NORMALS: patient oriented x3, CN's II-XII intact bilaterally, moves all extremities, no focal motor deficits and no sensory deficits noted MENINGEAL SIGNS: Yes no meningeal signs SPEECH: speech normal Psych: COMMON NORMALS: mental status grossly normal, Normal thought process present, cooperative, normal affect, speech normal and activity/motor behavior normal APPEARANCE: Yes well kempt SPEECH: Yes normal speech THOUGHT PROCESS: Normal thought process present Skin: COMMON NORMALS: no rashes or lesions noted, turgor normal, no jaundice, no petechiae and no mottling GENERAL SKIN EXAM: no rashes or lesions noted and turgor normal Course Vital Signs: Vital signs: Vital Signs Temperature 98.3 F 02/10/20 01:38 Pulse Rate 84 02/10/20 01:38 Respiratory Rate 20 H 02/10/20 01:38 Blood Pressure 106/67 02/10/20 01:38 Pulse Oximetry 96 02/10/20 01:38 MDM - Chest Pain MDM Narrative: Medical decision making narrative: The patient's case, symptoms and response to nitroglycerin was all reviewed with Dr. Corona, he agrees that t his is likely CHF and the patient could be diuresed and get an echo in the morning. I reviewed the case with Dr. Kimble and she agrees to admit the patient and will consult Dr. Corona. Currently patient is chest pain-free but occasionally she will have a recurrence of her pain that lasts only a few minutes if not less than a minute. Second troponin and EKG are pending at this time and we will review these before the patient is admitted. Medical Records: Attestation: I reviewed the patient's medical records. Medical records narrative: H&P, discharge summary, EKG and cath report from last hospital admission reviewed. Lab Data: Attestation: I reviewed the patient's lab results. Labs: Lab Results 02/09/20 02/09/20 02/09/20 Range/Units 23:15 23:15 23:15 WBC 7.5 (4.0-10.0) 10^3/ uL RBC 4.05 L (4.1-5.3) 10^6/u L Hgb 8.9 L (11.5-15.3) g/dL Hct 31.1 L (37.0-47.0) % MCV 76.8 L (81-99) fL MCH 22.0 L (28.0-34.0) pg MCHC 28.6 L (30.0-36.0) g/dL RDW 18.4 H (12.1-15.1) % Plt Count 482 H (130-400) 10^3/c mm MPV 10.3 (7.4-10.4) fL Neut % (Auto) 58.2 % Lymph % (Auto) 31.4 % [place] % (Auto) 6.8 % Eos % (Auto) 2.4 % Baso % (Auto) 1.1 % Neut # (Auto) 4.36 (1.8-7.7) 10^3/u L Lymph # (Auto) 2.4 (0.8-4.8) 10^3/u L [place] # (Auto) 0.5 (0.2-0.9) 10^3/u L Eos # (Auto) 0.2 (0.0-0.8) 10^3/u L Baso # (Auto) 0.1 (0.0-0.1) 10^3/u L Nucleated RBC % (a uto) 0 % Nucleated RBCs # 0.0 /100WBC PT 14.10 (12.1-14.9) SECO NDS INR 1.06 (0.8-1.2) Specimen Type Sample Site ABG pH (7.35-7.45) ABG pCO2 (35-45) mmHg ABG pO2 (80.0-100.0) mmH g ABG HCO3 (22-26) mmol/L ABG Base Excess (-2.0-2.0) mmol/ L Alfredo Test Hematocrit (37-47) % O2 Delivery Device Supervisor Engines Road ID Sodium 141 (136-145) mmol/L Potassium 3.5 (3.5-5.1) mmol/L Chloride 112 H (98-107) mmol/L Carbon Dioxide 19 L (22-29) mmol/L Anion Gap 13.5 (5-19) BUN 4 L (6-20) mg/dL Creatinine 0.6 (0.5-0.9) mg/dL GFR Calculation 104.2 (90-130) mL/min Glucose 86 (65-115) mg/dL Calculated Osmolal ity 287 (285-295) mOsm/k g Calcium 8.4 L (8.5-10.5) mg/dL Magnesium 2.0 (1.7-2.3) mg/dL Total Bilirubin 0.2 (0.15-1.2) mg/dL AST 25 (0-32) U/L ALT 11 (0-33) U/L Alkaline Phosphata se 149 H (35-105) IU/L Troponin T Baselin e (0-10) ng/L Troponin T 120 Min [place] (0-10) ng/L Delta Troponin T (0-10) ABS# NT-Pro-B Natriuret Pep 948 H (0-125) pg/mL Total Protein 6.5 L (6.6-8.7) g/dL Albumin 3.7 (3.5-5.2) g/dL Globulin 2.8 (1.3-4.6) g/dL Lipase 17 (13-60) U/L 02/09/20 02/09/20 02/10/20 Range/Units 23:15 23:38 00:59 WBC (4.0-10.0) 10^3/ uL RBC (4.1-5.3) 10^6/u L Hgb (11.5-15.3) g/dL Hct (37.0-47.0) % MCV (81-99) fL MCH (28.0-34.0) pg MCHC (30.0-36.0) g/dL RDW (12.1-15.1) % Plt Count (130-400) 10^3/c mm MPV (7.4-10.4) fL Neut % (Auto) % Lymph % (Auto) % [place] % (Auto) % Eos % (Auto) % Baso % (Auto) % Neut # (Auto) (1.8-7.7) 10^3/u L Lymph # (Auto) (0.8-4.8) 10^3/u L [place] # (Auto) (0.2-0.9) 10^3/u L Eos # (Auto) (0.0-0.8) 10^3/u L Baso # (Auto) (0.0-0.1) 10^3/u L Nucleated RBC % (a uto) % Nucleated RBCs # /100WBC PT (12.1-14.9) SECO NDS INR (0.8-1.2) Specimen Type Arterial Sample Site Brachial, right ABG pH 7.37 (7.35-7.45) ABG pCO2 30.9 L (35-45) mmHg ABG pO2 67.9 L (80.0-100.0) mmH g ABG HCO3 17.7 L (22-26) mmol/L ABG Base Excess -6.7 L (-2.0-2.0) mmol/ L Alfredo Test N/a Hematocrit 27.7 L (37-47) % O2 Delivery Device Room air Supervisor Engines [employer] ID Harkr Sodium (136-145) mmol/L Potassium (3.5-5.1) mmol/L Chloride (98-107) mmol/L Carbon Dioxide (22-29) mmol/L Anion Gap (5-19) BUN (6-20) mg/dL Creatinine (0.5-0.9) mg/dL GFR Calculation (90-130) mL/min Glucose (65-115) mg/dL Calculated Osmolal ity (285-295) mOsm/k g Calcium (8.5-10.5) mg/dL Magnesium (1.7-2.3) mg/dL Total Bilirubin (0.15-1.2) mg/dL AST (0-32) U/L ALT (0-33) U/L Alkaline Phosphata se (35-105) IU/L Troponin T Baselin e 6 (0-10) ng/L Troponin T 120 Min [place] 6.00 (0-10) ng/L Delta Troponin T 0 (0-10) ABS# NT-Pro-B Natriuret Pep (0-125) pg/mL Total Protein (6.6-8.7) g/dL Albumin (3.5-5.2) g/dL Globulin (1.3-4.6) g/dL Lipase (13-60) U/L Imaging Data^: CXR: My impression: No acute cardiopulmonary findings. EKG Data^: EKG 1: Attestation: I personally reviewed and interpreted this EKG as follows: EKG interpretation date: 02/09/20 EKG interpretation time: 23:07 Interpretation: Normal sinus rhythm at 110 beats a minute, T wave inversions in aVL and V2 through V5. EKG 2: Attestation: I personally reviewed and interpreted this EKG as follows: EKG interpretation date: 02/10/20 EKG interpretation time: 01:08 Interpretation: Normal sinus rhythm at 81 beats a minute, T wave inversions in aVL and V2 through V4. Discharge Plan Discharge Patient Disposition: Admitted As Inpatient Admit Provider: Susi Kimble Clinical Impression: New onset of congestive heart failure, Chest pain Condition: Stable Discharge Date/Time: 02/10/20 01:24 Coding Level of Care Code ED Telephone Surveyor for Chg Fwd Exam Comprehensive
[2020-02-09 23:30] VITALS: BP 120/73; PULSE 105; RESP 24; O2SAT 94
[2020-02-09] MEDS: nitroglycerin 1 gm/inch oint Pkt 1 INCH TOPICAL (23:33)
[2020-02-09 23:34] LABS: Basophils # 0.1 10^3/uL (0.0-0.1); Basophils % 1.1 %; Eosinophils # 0.2 10^3/uL (0.0-0.8); Eosinophils % 2.4 %; Hematocrit 31.1 % (37.0-47.0); Hemoglobin 8.9 g/dL (11.5-15.3); Lymphocytes # 2.4 10^3/uL (0.8-4.8); Lymphocytes % 31.4 %; Mean Corpuscular HGB Conc 28.6 g/dL (30.0-36.0); Mean Corpuscular Volume 76.8 fL (81-99); Mean Platelet Volume 10.3 fL (7.4-10.4); Monocytes # 0.5 10^3/uL (0.2-0.9); Monocytes % 6.8 %; Neutrophils # 4.36 10^3/uL (1.8-7.7); Neutrophils % 58.2 %; Nucleated Red Blood Cells % 0 %; Platelet Count 482 10^3/cmm (130-400); Red Blood Count 4.05 10^6/uL (4.1-5.3); Red Cell Distribution Width 18.4 % (12.1-15.1); White Blood Count 7.5 10^3/uL (4.0-10.0)
[2020-02-09] MEDS: sodium chloride 0.9% 1,000 ML 500 ML IV (23:35)
[2020-02-09 23:45] VITALS: BP 120/73; PULSE 87; RESP 19; O2SAT 93
[2020-02-09 23:49] LABS: ABG PCO2 30.9 mmHg (35-45); ABG PH Result 7.37 (7.35-7.45); Arterial Blood Gas Hematocrit 27.7 % (37-47); Base Excess ABG -6.7 mmol/L (-2.0-2.0); Blood Gas Operator Identificat HARKR; Blood Gas Sample Site Brachial, right; Blood Gas Sample Type Arterial; HCO3 ABG 17.7 mmol/L (22-26); Oxygen Device ROOM AIR; PO2 ABG 67.9 mmHg (80.0-100.0)
--- NOTE | 2020-02-09 23:58 | XR_ITS ---
WS: [id number] Portable AP upright chest, 02/10/2020 Clinical Data: cp Comparison: Portable chest, 01/23/2020. Findings: No nodules, masses or effusions are seen. The heart is normal. The pulmonary vascularity is not increased. No pneumonia or pneumothorax is seen. XR/XR chest 1V portable [id number] Impression: Negative chest.
[2020-02-10] VITALS (19 sets, daily range): BP systolic 95–134; BP diastolic 52–89; PULSE 71–98; RESP 15–22; TEMP 36.5–37.1; O2SAT 92–99
[2020-02-10 00:01] LABS: INR 1.06 (0.8-1.2)
[2020-02-10 00:16] LABS: Alanine Aminotransferase 11 U/L (0-33); Albumin Level 3.7 g/dL (3.5-5.2); Alkaline Phosphatase 149 IU/L (35-105); Anion Gap 13.5 (5-19); Aspartate Amino Transferase 25 U/L (0-32); Blood Urea Nitrogen 4 mg/dL (6-20); Calcium 8.4 mg/dL (8.5-10.5); Carbon Dioxide 19 mmol/L (22-29); Chloride 112 mmol/L (98-107); Globulin 2.8 g/dL (1.3-4.6); Glomerular Filtration Rate 104.2 mL/min (90-130); Glucose 86 mg/dL (65-115); Lipase 17 U/L (13-60); NT Pro B Type Natriuretic Pept 948 pg/mL (0-125); Osmolality Calculated 287 mOsm/kg (285-295); Potassium 3.5 mmol/L (3.5-5.1); Sodium 141 mmol/L (136-145); Total Bilirubin 0.2 mg/dL (0.15-1.2); Total Protein 6.5 g/dL (6.6-8.7)
[2020-02-10] MEDS: FUROsemide 10 mg/mL SDV 4mL 40 MG IVP ×2 (00:27→08:59)
[2020-02-10 00:30] LABS: Troponin(5th) Baseline 6 ng/L (0-10)
--- NOTE | 2020-02-10 01:01 | ECG_ITS ---
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 Measurements Intervals [place] Rate: 81 P: 62 NE: 169 QRS: 79 QRSD: 80 T: 96 QT: 348 QTc: 405 Interpretive Statements SINUS RHYTHM MODERATE T-WAVE ABNORMALITY, CONSIDER ANTERIOR ISCHEMIA [-0.1+ mV T WAVE IN V3/V4] Compared to ECG 02/09/2020 23:07:52 Junctional tachycardia no longer present T-wave abnormality still present Possible ischemia still present Electronically Signed On 02-10-2020 21:23:55 CDT by Joe Bass M.D. [id number]
[2020-02-10 01:20] LABS: Troponin 5 2HR Delta 0 ABS# (0-10)
--- NOTE | 2020-02-10 02:30 | PC.NURSE ---
Pt care assumed by this nurse at this time. Pt is resting with both eyes closed. No needs voiced at this time.
--- NOTE | 2020-02-10 03:00 | PC.NURSE ---
Dr Kimble here to see pt.
--- NOTE | 2020-02-10 03:14 | P.HP_ITS ---
Providers/Chief Complaint Admitting Physician: Susi Kimble MD Primary Care Provider: Lauri Krishnan MD Chief Complaint: CP History of Present Illness Nhung Leone is a 54 year old female who presented to the emergency room with chief complaint of chest pain. Mrs. Leone was recently hospitalized with an ST elevation OR on January 22. Culprit lesion was LAD which was subsequently stented. She was discharged on January 24. She has had follow-up with Dulce Robertson last week and was doing okay. She has also seen Dr. West whom she follows for COPD and asthma. She received her first dose of Xolair on February 03. Patient had taken a shower this evening and was watching TV. While at rest she had sudden onset of discomfort in the center of her chest. She denied any radiation but said that her arms felt light . She was short of breath. Pain was rated at a 10 out of 10. It was constant and escalating over about a 15-minute period of time when she called EMS. EMS gave her 2 sublingual nitroglycerin and she started to have relief of her symptoms. She denied any diaphoresis, nausea, vomiting, palpitations, dizziness or syncope. Symptoms were just like the symptoms that she had when she had the ST elevation OR. She was quite anxious. In talking with her she has been having some gradually more significant orthopnea and dyspnea on exertion. She had quit smoking but has started back again. She is smoking less than a half a pack a day currently. The shortness of breath wakes her up from sleep with a nonproductive cough. BNP was noted to be elevated. She received some nitroglycerin as well as Nitropaste in the emergency room. She is currently feeling better with resolution of chest pain. This was the first episode of chest pain she has had since her heart attack and stent. She has been compliant with her medications. Case was discussed with cardiology who recommended admission for rule out and an echocardiogram. Review of Systems Const: Reports: fatigue; Denies: fever(s), chills or change in appetite Eyes: Denies: change in vision ENMT: Denies: throat pain, dry mouth or nasal congestion Card: Reports: chest pain, dyspnea on exertion and orthopnea; Denies: palpitations or edema Resp: Reports: dyspnea and non-productive cough; Denies: productive cough GI: Reports: constipation; Denies: abdominal pain, nausea, vomiting or diarrhea : Reports: nocturia; Denies: difficulty voiding Musc: Reports: back pain; Denies: joint swelling or joint redness Skin/Breast: Denies: rash or pruritus Neuro: Denies: headache(s), numbness in extremities, weakness in extremities or dizziness Psych: Reports: anxiety; Denies: depression Keith/Lymph: Denies: easy bruising or easy bleeding Medications/Allergies Home Medications Medication Instructions Recorded Confirmed Last Taken Type albuterol sulfate 90 mcg/actuation 2 puff INHALATION Q6H PRN 07/06/19 02/10/20 01/22/20 18:00 History aerosol inhaler fluticasone propionate 50 1 spray INTRANASAL BID 60 Days 08/03/19 02/10/20 01/22/20 18:00 Rx mcg/actuation nasal #18.2 ml spray,suspension verapamil 180 mg 24 hr 180 mg PO QAM #30 cap 08/31/19 02/10/20 01/22/20 08:00 Rx capsule,extended release omeprazole 40 mg PO BID #120 cap 09/25/19 02/10/20 01/22/20 18:00 Rx albuterol sulfate 2.5 mg INHALATION QID 10/05/19 02/10/20 01/22/20 12:00 History montelukast 10 mg tablet 10 mg PO DAILY 30 Days #30 tab 12/02/19 02/10/20 01/22/20 08:00 Rx prednisone 5 mg tablet 5 mg PO .COMPLEX #30 tab 12/02/19 02/10/20 01/22/20 08:00 Rx duloxetine 60 mg capsule,delayed 60 mg PO .morning #90 cap 12/03/19 02/10/20 01/22/20 08:00 Rx release hydroxyzine HCl 25 mg tablet 25 mg PO BID PRN #180 tab 12/03/19 02/10/2001/21 21:00 Rx ropinirole 0.5 mg tablet 0.5 mg PO BID #180 tab 12/03/19 02/10/20 01/22/20 21:00 Rx topiramate 100 mg tablet 100 mg PO BID #180 tab 12/03/19 02/10/20 01/22/20 21:00 Rx trazodone 150 mg tablet 150 mg PO .QHS PRN #90 tab 12/03/19 02/10/20 01/22/20 21:00 Rx amitriptyline 100 mg tablet 100 mg PO .hs #30 tab 12/16/19 02/10/20 01/22/20 21:00 Rx methadone 10 mg tablet 10 mg PO Q6H 30 Days #120 tab 12/16/19 02/10/20 01/22/20 21:00 Rx naproxen 500 mg tablet 500 mg PO BID 30 Days #60 tab 12/16/19 02/10/20 01/22/20 08:00 Rx oxycodone-acetaminophen 10 mg-325 1 tab PO TID PRN 30 Days #90 tab 12/16/19 02/10/20 01/22/20 21:00 Rx mg tablet omalizumab 150 mg subcutaneous 150 mg SUBCUT .[id number] #2 each 01/13/20 02/10/20 Unknown Rx solution aspirin 81 mg PO DAILY #100 tab 01/25/20 02/10/20 Unknown Rx atorvastatin 40 mg PO BEDTIME #30 tab 01/25/20 02/10/20 Unknown Rx clopidogrel 75 mg PO DAILY #90 tab 01/25/20 02/10/20 Unknown Rx lisinopril 2.5 mg PO DAILY #90 tab 01/25/20 02/10/20 Unknown Rx metoprolol succinate 25 mg PO DAILY #180 tab 01/25/20 02/10/20 Unknown Rx budesonide 0.5 mg/2 mL suspension See Rx Instructions .ROUTE 02/01/20 02/10/20 Unknown Rx for nebulization .COMPLEX #60 vial formoterol fumarate 20 mcg/2 mL See Rx Instructions .ROUTE 02/01/20 02/10/20 Unknown Rx solution for nebulization .COMPLEX #60 vial revefenacin 175 mcg/3 mL solution See Rx Instructions .ROUTE 02/01/20 02/10/20 Unknown Rx for nebulization .COMPLEX #30 vial epinephrine 0.15 mg/0.3 mL 0.15 mg IM Q30M PRN #2 each 02/04/20 02/10/20 Unknown Rx injection,auto-injector Allergies Allergy/AdvReac Type Severity Reaction Status Date / Time codeine Allergy Unknown Unknown Verified 02/04/20 16:18 doxycycline Allergy Unknown ALGY-Hives Verified 02/04/20 16:18 Iodinated Contrast Media Allergy Unknown ALGY-Hives Verified 02/04/20 16:18 Sulfa (Sulfonamide Allergy Unknown Unknown Verified 02/04/20 16:18 Antibiotics) gabapentin Allergy Unknown Verified 02/04/20 16:18 PFSH Acute PFSH: Medical History (Updated 02/10/20 @ 08:31 by Susi Kimble MD) Asthma severe persistent, started xolair 02/04/2020 CAD (coronary artery disease) (~12/2019) anterior wall stemi, s/p stent to LAD Chronic post-traumatic stress disorder Chronic radicular lumbar pain COPD (chronic obstructive pulmonary disease) Essential (primary) hypertension Generalized anxiety disorder GERD (gastroesophageal reflux disease) Herniated disc Lesion of ulnar nerve, bilateral Major depressive disorder, recurrent severe without psychotic features Sleep apnea, unspecified Surgical History H/O bilateral oophorectomy H/O skin graft History of carpal tunnel release History of cholecystectomy Presence of stent in LAD coronary artery (01/23/20) S/P section Family History (Updated 02/10/20 @ 03:52 by Susi Kimble MD) Father Myocardial infarct, Onset Age: 45 Brother Myocardial infarct, Onset Age: 53 Other CAD (coronary artery disease) Social History (Updated 02/10/20 @ 03:51 by Susi Kimble MD) Smoking and tobacco status: current every day smoker cigarettes Years cigarettes smoked: 40 [ Other cigarette details: down to about half pack per day ] Quit status (tobacco): has tried quititng Alcohol intake: current Alcohol intake frequency: holidays/special occasions only Lives independently: Yes Household members: family Current occupational status: disabled History of recent travel: No Current gender identity: Female Vitals/I&O/Wt Last Vital Signs Temp 98.3 F 02/10/20 01:38 Pulse 84 02/10/20 01:38 Resp 20 H 02/10/20 01:38 BP 106/67 02/10/20 01:38 Pulse Ox 96 02/10/20 01:38 02/09/20 02/09/20 02/10/20 14:59 22:59 06:59 Intake Total 1196.667 / 1196.667 Balance 1196.667 / 1196.667 Weight last 48 hrs Weight 88.451 kg Physical Exam Const: OTHER: Alert, oriented x3, cooperative HENMT: OTHER: Normocephalic atraumatic, mucous membranes moist, poor dentition Eye: OTHER: Pupils equally round and reactive to light, extraocular movements intact Neck/C-Spine: OTHER: Supple Resp: OTHER: Clear bilaterally, no wheezes or rales noted, no accessory muscle use at rest Cardio: OTHER: Regular rate and rhythm, no gallops or rubs, equal pulses GI: OTHER: Abdomen soft, nontender, nondistended, positive bowel sounds : OTHER: Deferred Extremity: NARRATIVE EXTREMITY EXAM: Distal extremities are puffy but no pitting edema Neuro: OTHER: Face symmetric, speech clear, handgrip equal, strength equal both feet Skin: NARRATIVE SKIN EXAM: Patient with dry skin, no acute rashes Data : 02/10/20 05:02 02/10/20 05:02 A&P Assessment and plan (1) Chest pain: Description sounds somewhat atypical but per patient is exactly like what she had when she had her ST elevation OR. Status: Acute Qualifiers: Chest pain type: unspecified Qualified Code(s): R07.9 - Chest pain, unspecified (2) New onset of congestive heart failure: Based on clinical history, elevated BNP, drop in hemoglobin without evidence of bleeding suggesting volume overload in the setting of recent ST elevation OR Status: Acute (3) CAD (coronary artery disease): Status: Acute Qualifiers: Coronary Disease-Associated Artery/Lesion type: mo[place]gan artery [place] vs. transplanted heart: mohegan heart Associated angina: with unspecified angina Qualified Code(s): I25.119 - Atherosclerotic heart disease of mo[place]gan coronary artery with unspecified angina pectoris (4) COPD (chronic obstructive pulmonary disease): Status: Acute Qualifiers: COPD type: unspecified COPD Qualified Code(s): J44.9 - Chronic obstructive pulmonary disease, unspecified (5) Asthma: Received first dose of Xolair 02/04/2020 Status: Chronic Qualifiers: Asthma severity: severe Asthma persistence: persistent Asthma complication type: unspecified Qualified Code(s): J45.50 - Severe persistent asthma, uncomplicated (6) Essential (primary) hypertension: Status: Acute (7) KRISTOFER on CPAP: Status: Acute (8) GERD (gastroesophageal reflux disease): Status: Acute (9) Methadone maintenance therapy patient: Status: Acute (10) Nicotine dependence, cigarettes, with other nicotine-induced disorders: Status: Chronic Additional A&P Information Observation admission Serial cardiac enzymes Echocardiogram in the morning We will give another dose of IV diuresis in the morning and then can probably transition to oral Follows with Dr. Salcedo chronically on an outpatient basis although Dr. Maldonado did her intervention. May want to discuss with Dr. Salcedo for closer outpatient follow-up or consider inpatient cardiology consultation if cardiac enzymes or echocardiogram are significantly abnormal. Already on chronic low-dose lisinopril Continue home beta-blockade and verapamil, aspirin, Plavix and statin therapy Check lipid panel as I do not see that she has had 1 recently Discussed with patient stopping naproxen which is on her home medication list secondary to cardiac issues and risk of bleeding on aspirin and Plavix therapy Breathing treatments per what we have on formulary Continue home methadone Continue home Singulair and every other day prednisone Continue home Requip, Topamax, trazodone Home CPAP ordered Check Hemoccult and iron level Currently low risk for VTE given anticipated stay of only 1 night but should she require transition to inpatient we will need to further address Anticipate discharge home with continued outpatient follow-up Patient was encouraged to continue efforts to quit smoking Supportive care otherwise Plans discussed with patient and she was given an opportunity to ask questions Full code Attestations Medical Necessity Statement*: Currently anticipated stay less than 2 midnights in a patient who clinically sounds like she has developed some CHF status post recent ST elevation OR. She responded well to 1 dose of Lasix and some nitroglycerin and initial cardiac enzymes are negative. Plans are as indicated. Coding Level of Care Code Acute Financial Processing Clerk for Gracie Laguna Diagnoses Chest pain R07.9 Chest pain type: unspecified New onset of congestive heart failure I50.9 CAD (coronary artery disease) I25.119 Coronary Disease-Associated Artery/Lesion type: mo[place] artery [place] vs. transplanted heart: mohegan heart Associated angina: with unspecified angina COPD (chronic obstructive pulmonary disease) J44.9 COPD type: unspecified COPD Asthma J45.50 Asthma severity: severe Asthma persistence: persistent Asthma complication type: unspecified Essential (primary) hypertension I10 KRISTOFER on CPAP G47.33; Z99.89 GERD (gastroesophageal reflux disease) K21.9 Methadone maintenance therapy patient F11.20 Nicotine dependence, cigarettes, with other nicotine-induced disorders F17.218
[2020-02-10 06:15] LABS: Basophils # 0.1 10^3/uL (0.0-0.1); Eosinophils # 0.2 10^3/uL (0.0-0.8); Eosinophils % 2.2 %; Hematocrit 30.8 % (37.0-47.0); Hemoglobin 8.5 g/dL (11.5-15.3); Lymphocytes # 3.7 10^3/uL (0.8-4.8); Lymphocytes % 41.6 %; Mean Corpuscular HGB Conc 27.6 g/dL (30.0-36.0); Mean Corpuscular Hemoglobin 22.8 pg (28.0-34.0); Mean Corpuscular Volume 82.6 fL (81-99); Mean Platelet Volume 10.2 fL (7.4-10.4); Monocytes # 0.7 10^3/uL (0.2-0.9); Monocytes % 7.4 %; Neutrophils # 4.18 10^3/uL (1.8-7.7); Neutrophils % 47.6 %; Nucleated Red Blood Cells % 0 %; Platelet Count 511 10^3/cmm (130-400); Red Blood Count 3.73 10^6/uL (4.1-5.3); Red Cell Distribution Width 18.7 % (12.1-15.1); White Blood Count 8.8 10^3/uL (4.0-10.0)
[2020-02-10 07:11] LABS: Blood Urea Nitrogen 5 mg/dL (6-20); Calcium 8.2 mg/dL (8.5-10.5); Carbon Dioxide 19 mmol/L (22-29); Chloride 110 mmol/L (98-107); Glomerular Filtration Rate 87.2 mL/min (90-130); Glucose 76 mg/dL (65-115); Osmolality Calculated 282 mOsm/kg (285-295); Sodium 139 mmol/L (136-145)
[2020-02-10 07:12] LABS: Anion Gap 13.8 (5-19); Potassium 3.8 mmol/L (3.5-5.1)
--- NOTE | 2020-02-10 07:15 | PC.NURSE ---
Patient is resting in bed, easily awakens to voice, oriented X3, poor eye contact noted, denies chest pain, shortness of breath, discussed plan of care, verbalized understanding, denies further needs, call light in reach.
--- NOTE | 2020-02-10 08:19 | USCV_ITS ---
Nhung Leone Age: 54 Gender: F : 1965 Exam Date: 02/10/2020 13:44 Ordering Phys: Susi Kimble MD Technologist: Branden Alexander Exam Location: [facility] [place] Indication: CHEST PAIN BP: 132 / 80 HR: 78 Rhythm: Sinus Technical Quality: Fair MEASUREMENTS (Male / Female) Normal Values 2D ECHO LV Diastolic Diameter PLAX 4.0 cm 4.2 - 5.9 / 3.9 - 5.3 cm LV Systolic Diameter PLAX 2.2 cm IVS Diastolic Thickness 0.9 cm 0.6 - 1.0 / 0.6 - 0.9 cm IVS Systolic Thickness 1.2 cm LVPW Diastolic Thickness 0.8 cm 0.6 - 1.0 / 0.6 - 0.9 cm LVPW Systolic Thickness 1.2 cm LVOT Diameter 2.1 cm LV Ejection Fraction 2D Teich 76.4 % LV Ejection Fraction MOD 2C 55.2 % LV Ejection Fraction 2C AL 57.4 % LA Diameter 3.6 cm LA Width 3.3 cm LA Height 4.0 cm RA Width 3.1 cm RA Height 3.5 cm Aorta at Sinotubular Diameter 1.0 cm M-MODE LV Diastolic Diameter MM 4.3 cm 4.2 - 5.9 / 3.9 - 5.3 cm LV Systolic Diameter MM 2.6 cm LV Ejection Fraction MM Teich 71.2 % IVS Diastolic Thickness MM 0.9 cm 0.6 - 1.0 / 0.6 - 0.9 cm IVS Systolic Thickness MM 1.6 cm LVPW Diastolic Thickness MM 0.9 cm 0.6 - 1.0 / 0.6 - 0.9 cm LVPW Systolic Thickness MM 1.6 cm RV Diastolic Diameter MM 1.6 cm Aortic Annulus Diameter 2.9 cm LA Ao Ratio MM 1.2 MV E Point Septal Separation 0.8 cm DOPPLER AV Peak Velocity 145.0 cm/s LVOT Peak Velocity 96.0 cm/s AV Area Cont Eq vti 2.2 cm squared AV Area Cont Eq pk 2.2 cm squared MV Area PHT 5.0 cm squared Mitral E to A Ratio 0.7 MV E' Velocity 7.0 cm/s Mitral E to MV E' Ratio 9.2 Mitral E to LV E' Lateral Ratio 9.7 Mitral E to LV E' Septal Ratio 8.7 TR Peak Velocity 142.0 cm/s TR Peak Gradient 8.1 mmHg TV Peak E Velocity 79.0 cm/s Right Atrial Pressure 3.0 mmHg Pulmonary Artery Systolic Pressu 11.1 mmHg PV Peak Velocity 99.0 cm/s FINDINGS Left Ventricle Normal left ventricular size, systolic function and wall thickness, with no regional wall motion abnormalities. Left ventricular ejection fraction is estimated at 57 %. Normal diastolic function. Right Ventricle Normal right ventricular size and systolic function. Right ventricular systolic pressure 11.1 mmHg. Right Atrium Normal right atrial size. Right atrial pressure estimated at 3 mmHg. Left Atrium Normal left atrial size. Mitral Valve Structurally normal mitral valve. No mitral valve stenosis. No mitral valve regurgitation. Aortic Valve Structurally normal trileaflet aortic valve. No aortic valve stenosis. No aortic valve regurgitation. Tricuspid Valve Structurally normal tricuspid valve. No tricuspid valve stenosis. Trace tricuspid valve regurgitation. Pulmonic Valve Structurally normal pulmonic valve. Trace pulmonary valve regurgitation. Pericardium No pericardial effusion. Aorta Normal size aortic root and proximal ascending aorta. Normal- sized inferior vena cava. CONCLUSIONS 1. Normal left ventricular size, systolic function and wall thickness, with no regional wall motion abnormalities. Left ventricular ejection fraction is estimated at 57 %. Normal diastolic function. 2. Normal pulmonary artery pressure. 3. No significant valvular abnormality. 4. Direct comparison to previous study dated 11/25/2018 is not possible given technical differences in study. Bozena Salcedo MD (Electronically Signed) Final Date: 10 February 2020 17:29 S
[2020-02-10 08:48] LABS: Chol HDL Ratio 5.36 mg/dL (0.0-4.40); Cholesterol 150 mg/dL (0-200); HDL Cholesterol 28 mg/dL (60-100); LDL Cholesterol Calculated 98 mg/dL (50-129); Triglycerides 120 mg/dL (0-150)
[2020-02-10] MEDS: fluticasone nasal spray 16gm Btl 1 SPRAY INTRANASAL ×2 (08:57→17:18)
[2020-02-10] MEDS: aspirin 81 mg EC Tablet PO (08:58)
[2020-02-10] MEDS: montelukast sodium 10 mg Tablet PO (08:58)
[2020-02-10] MEDS: topiramate 100 mg Tablet PO ×2 (08:58→17:21)
[2020-02-10] MEDS: ropinirole 0.25 mg Tablet 0.5 MG PO ×2 (08:58→17:21)
[2020-02-10] MEDS: lisinopril 2.5 mg Tablet PO (08:58)
[2020-02-10] MEDS: clopidogrel 75 mg Tablet PO (08:58)
[2020-02-10] MEDS: methadone 10 mg Tablet PO ×3 (08:59→21:10)
[2020-02-10] MEDS: potassium chloride ER 10 mEq Tablet 20 MEQ PO (08:59)
[2020-02-10] MEDS: metoprolol succinate ER (24 HR) 25 mg Tablet PO (08:59)
[2020-02-10] MEDS: duloxetine 60 mg Capsule PO (09:02)
[2020-02-10] MEDS: pantoprazole DR 40 mg Tablet PO ×2 (09:02→17:21)
[2020-02-10] MEDS: albuterol 8 gm MDI 2 PUFF INHALATION (09:07)
[2020-02-10 09:45] LABS: Iron 25 ug/dL (37-145)
[2020-02-10] MEDS: verapamil ER 180 mg Tablet PO (10:13)
--- NOTE | 2020-02-10 10:50 | PC.CHAP ---
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 biodiesel plant manager visit [] Patient/Family/Request visit [] Outpatient visit [] Follow-up visit [] Physician referral [] Code/Alert [x] Routine visit [] Staff referral [] Actively dying [] Patient sleeping [] Family support [] [] Out of room [] Palliative care [] [] Receiving care in room [] Pre-surgical visit [] Trauma [] Long length of stay [] ICU visit [] Other: Relational/Emotional Strength [] Patient feels connected with others/family/visitors/staff [] Distress [] Loneliness/isolation [] Abandonment Spirituality of Patient [] Person of Shirlene [] Attends Shinto of their Shirlene [] Believes in Prayer [] Reads Bible or Church materials [] There are Spiritual issues to be addressed Pattern Weaver Interventions [x] Prayer [x] Active listening [x] Non-anxious presence [x] Spiritual/emotional support [] Crisis/trauma care [] Spiritual counseling [] Bereavement support [] Provided bereavement packet [] Provided Bible/devotional materials [] Provided toy/stuffed animal, coloring book to patient or family member [] Provided Communion [] Anointing/[place] [] Salvation [x] Completed spiritual assessment [] Other: Impact on Illness or Injury [] Angry [] Fearful [] Anxious [] Often cries [] Exhaustion [] Unable to work [] Unable to attend sabianist [] Unable to walk/stand [] Unable to read [] Unable to drive [] Unable to eat/drink [] Unable to sleep [] Unable to be with family [] Patient intubated [] Other: Summary Patient resting well Time spent with patient 5 min
[2020-02-10 10:53] LABS: Percent Saturation 6.1 % (20-50); Total Iron Binding Capacity 409 mcg/dl; Unsaturated Iron Binding 384 ug/dL (112-347)
--- NOTE | 2020-02-10 14:10 | P.PN_ITS ---
Subjective Subjective: Interval history: Chart reviewed, patient known to me from previous admission. Has had thousand mL urine output overnight with an additional 850 so far today. Hemodynamically stable, on room air, per nursing staff fatigues easily and is quite dyspneic even with minimal exertion. Noted anemia with a hemoglobin of 8.5 and normal electrolytes and renal function. Resting quietly in bed during my visit. Does not appear overtly dyspneic and is on room air. Medications: Reviewed: Yes Medication Review Details: Active Medications Generic Name Dose Route Start Last Admin Trade Name Freq PRN Reason Stop Dose Admin Acetaminophen 650 mg 02/10/20 01:28 Tylenol PO Q6H PRN Mild/Mod Pain Or Temp >/= 101 Albuterol Sulfate 2 puff 02/10/20 08:20 02/10/20 09:07 Ventolin INHALATION 2 puff Q6H PRN Administration Shortness Of Edel th Or Wheezing Albuterol/Ipratrop ium 3 ml 02/10/20 12:33 Duoneb INHALATION Q6H PRN SHORTNESS OF EDEL TH Amitriptyline HCl 100 mg 02/10/20 21:00 Elavil PO BEDTIME CARLEY Aspirin 81 mg 02/10/20 09:00 02/10/20 08:58 Aspirin Ec PO 81 mg DAILY CARLEY Administration Atorvastatin Calci um 40 mg 02/10/20 21:00 Lipitor PO BEDTIME CARLEY Budesonide 0.5 mg 02/10/20 20:00 Pulmicort INHALATION BID.RESPIRATORY S CH Clopidogrel Bisulf ate 75 mg 02/10/20 09:00 02/10/20 08:58 Plavix PO 75 mg DAILY CARLEY Administration Duloxetine HCl 60 mg 02/10/20 09:00 02/10/20 09:02 Cymbalta PO 60 mg DAILY CARLEY Administration Fluticasone Propio jaci 1 spray 02/10/20 09:00 02/10/20 08:57 Flonase INTRANASAL 1 spray BID CARLEY Administration Furosemide 40 mg 02/10/20 08:30 02/10/20 08:59 Lasix IVP 40 mg Q24H CARLEY Administration Lisinopril 2.5 mg 02/10/20 09:00 02/10/20 08:58 Prinivil PO 2.5 mg DAILY CARLEY Administration Methadone HCl 10 mg 02/10/20 08:30 08/12/20 08:59 Dolophine PO 10 mg Q6H CARLEY Administration Metoprolol Succina te 25 mg 02/10/20 09:00 02/10/20 08:59 Toprol Xl PO 25 mg DAILY CARLEY Administration Montelukast Sodium 10 mg 02/10/20 09:00 02/10/20 08:58 Singulair PO 10 mg DAILY CARLEY Administration Ondansetron HCl 4 mg 02/10/20 01:28 Zofran IVP Q6H PRN NAUSEA AND VOMITI NG Oxycodone/Acetamin ophen 1 tab 02/10/20 08:20 Percocet 10-325 Mg PO TID PRN pain Pantoprazole Sodiu m 40 mg 02/10/20 09:00 02/10/20 09:02 Protonix PO 40 mg BID CARLEY Administration Potassium Chloride 20 meq 02/10/20 09:00 02/10/20 08:59 Klor-Con 10 PO 20 meq DAILY CARLEY Administration Prednisone 5 mg 02/11/20 09:00 Prednisone PO Q48H CARLEY Ropinirole HCl 0.5 mg 02/10/20 09:00 02/10/20 08:58 Requip PO 0.5 mg BID CARLEY Administration Topiramate 100 mg 02/10/20 09:00 02/10/20 08:58 Topamax PO 100 mg BID CARLEY Administration Trazodone HCl 150 mg 02/10/20 08:20 Desyrel PO BEDTIME PRN sleep Verapamil HCl 180 mg 02/10/20 09:00 02/10/20 10:13 Verapamil Er PO 180 mg DAILY CARLEY Administration codeine Allergy (Unknown, Verified 02/04/20 16:18) Unknown doxycycline Allergy (Unknown, Verified 02/04/20 16:18) ALGY-Hives Iodinated Contrast Media Allergy (Unknown, Verified 02/04/20 16:18) ALGY-Hives Sulfa (Sulfonamide Antibiotics) Allergy (Unknown, Verified 02/04/20 16:18) Unknown gabapentin Allergy (Verified 02/04/20 16:18) Unknown Vitals/I&O/Wt Last Vital Signs Temp 98.6 F 02/10/20 12:00 Pulse 94 02/10/20 12:00 Resp 18 02/10/20 12:00 BP 122/84 02/10/20 12:00 Pulse Ox 94 02/10/20 12:00 02/09/20 02/10/20 02/10/20 22:59 06:59 14:59 Intake Total 1196.667 / 1196.667 720 / 720 Output Total 1000 / 1000 850 / 850 Balance 196.667 / 196.667 -130 / -130 Weight last 48 hrs Weight 89.613 kg Weight 89.613 kg Weight 88.451 kg Physical Exam Const: COMMON NORMALS: no acute distress, patient oriented x3 and alert GENERAL APPEARANCE: cooperative and comfortable NUTRITIONAL APPEARANCE: obese morbidly obese ORIENTATION/CONSCIOUSNESS: Yes awake HENMT: COMMON NORMALS: normocephalic, atraumatic, hearing grossly normal bilaterally and moist oral mucous membranes HEAD & SCALP: normocephalic and atraumatic Eye: COMMON NORMALS: Equal, round and reactive pupils present, EOMs intact b ilaterally and conjunctivae normal CONJUNCTIVA: Yes conjunctivae normal PUPIL: Yes Equal, round and reactive pupils present Neck/C-Spine: COMMON NORMALS: full ROM GENERAL: Yes normal visual ins pection and Yes trachea midline Resp: COMMON NORMALS: normal respiratory effort, No retractions and No use of accessory muscles EFFORT & INSPECTION: Yes able to speak in complete sentences, Yes symmetric chest movement and Yes tachypneic (intermittently) AUSCULTATION: diminished lung sounds bilateral OTHER: -dyspneic with exertion Cardio: COMMON NORMALS: regular rate, regular rhythm, S1 normal heart sound present, S2 normal heart sound present and No murmurs present (Cardio) RATE: regular rate RHYTHM: regular rhythm HEART SOUNDS: S1 normal heart sound present and S2 normal heart sound present GI: COMMON NORMALS: Normal to inspection, nondistended, normoactive bowel sounds present, Soft to palpation and non-tender PALPATION: Yes Soft to palpation Extremity: COMMON NORMALS: normal to inspection, full ROM and no clubbing, cyanosis or edema; negative for no pedal edema Neuro: COMMON NORMALS: patient oriented x3, moves all extremities, no focal motor deficits and no sensory deficits noted SENSORIUM/ORIENTATION: Yes alert Psych: COMMON NORMALS: mental status grossly normal, Normal thought process present, cooperative, normal affect and speech normal SPEECH: Yes normal speech THOUGHT PROCESS: Normal thought process present Skin: COMMON NORMALS: no rashes or lesions noted, no jaundice, no petechiae and no mottling GENERAL SKIN EXAM: no rashes or lesions noted Data : 02/10/20 05:02 02/10/20 05:02 A&P Assessment and plan (1) New onset of congestive heart failure: -Could be secondary to recent STEMI requiring intervention with stenting of LAD last month -Echo: EF=57%, normal systolic and diastolic function, no RWMA, trace TR, trace SC -Continue IV diuresis with Lasix -Continue to monitor electrolytes and renal function -Daily weights, monitor ins and outs -BNP elevated at 948 -Chest x-ray reported as unremarkable -Close monitoring of respiratory status, supplemental oxygen as needed Status: Acute (2) Chest pain: -Appears to be atypical but per patient presentation is quite similar to what she had with STEMI -Troponins noted, no significant delta -Cardiology assessment by Dr. Bass appreciated -Continue aspirin, Plavix, statin, beta-aniket -Telemetry monitoring -VSS; continue to monitor Status: Acute Qualifiers: Chest pain type: unspecified Qualified Code(s): R07.9 - Chest pain, unspecified (3) CAD (coronary artery disease): -Known history of CAD with recent stenting of LAD due to STEMI in December -Follows up with Dr. Salcedo Status: Chronic Qualifiers: Associated angina: with unspecified angina Coronary Disease-Associated Artery/Lesion type: [place] artery [place] vs. transplanted heart: [place] heart Qualified Code(s): I25.119 - Atherosclerotic heart disease of [place] coronary artery with unspecified angina pectoris (4) Asthma: -Follows up with Dr. West Status: Chronic Qualifiers: Asthma complication type: unspecified Asthma persistence: persistent Asthma severity: severe Qualified Code(s): J45.50 - Severe persistent asthma, uncomplicated (5) Essential (primary) hypertension: -VSS; continue to monitor -continue oral antihypertensives Status: Acute (6) COPD (chronic obstructive pulmonary disease): -no acute exacerbation -does not appear to be oxygen dependent at baseline -recently restarted smoking, 1/2 PPD Status: Chronic Qualifiers: COPD type: unspecified COPD Qualified Code(s): J44.9 - Chronic obstructive pulmonary disease, unspecified (7) KRISTOFER on CPAP: Status: Chronic (8) GERD (gastroesophageal reflux disease): -on PPI Status: Chronic Qualifiers: Esophagitis presence: esophagitis presence not specified Qualified Code(s): K21.9 - Gastro-esophageal reflux disease without esophagitis (9) Normocytic anemia: -Seems to have intermittent normocytic anemia with a baseline hemoglobin of about 10-11, intermittently normal -Has been on dual antiplatelet therapy given recent stenting -Noted drop in hemoglobin to 8.5 today -Continue to monitor H&H closely -FOBT pending, iron low Status: Acute Additional A&P Information -Morbid obesity: BMI-33 kg/m2 -PTSD, anxiety, depression -Chronic back pain -cardiac diet as tolerated -GI ppx with PPI -DVT ppx with -Dispo: home -Code status: FULL code Attestations Medical Necessity Statement*: Patient requires hospitalization for continued I V diuresis secondary to acutely decompensated congestive heart failure. Time Spent in Patient Care: Greater than 35 minutes (>than 50% of time spent in counselling and/or direct pt care on unit) . 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 transplanted heart: [place] heart Asthma J45.50 Asthma complication type: unspecified Asthma persistence: persistent Asthma severity: severe Essential (primary) hypertension I10 COPD (chronic obstructive pulmonary disease) J44.9 COPD type: unspecified COPD KRISTOFER on CPAP G47.33; Z99.89 GERD (gastroesophageal reflux disease) K21.9 Esophagitis presence: esophagitis presence not specified Normocytic anemia D64.9
--- NOTE | 2020-02-10 14:19 | PC.RESP ---
Smoking Cessation and Pulmonary Rehab information sent to patient.
--- NOTE | 2020-02-10 20:33 | P.CONIM_ITS ---
Providers/Reason For Consult Consulting Physican/Specialty*: Joe Bass MD Reason for Consult*: Chest pressure/pain, shortness of breath, CHF exacerbation new onset Attending Physician: Margarita Nassar MD Primary Care Provider: Lauri Krishnan MD History of Present Illness History of Present Illness Nhung Leone is a 54 year old female past medical history significant for recent anterior wall myocardial infarction treated with drug-eluting stent in proximal LAD for 95% hazy thrombus-like lesion nearly 2 weeks back admitted with worsening of shortness of breath PND orthopnea along with chest pain. She was ruled out overnight and treated for mixed CHF and picture of COPD exacerbation. Since last night she has more than 1.5 L out she is feeling somewhat better however still very short of breath when she walks few feet. She still cannot lay flat in the bed she has 1+ edema. As per patient since her discharge she has not felt better and continues to progressively get worse. Echocardiogram was obtained which showed she has preserved ejection fraction. Review of Systems Const: Reports: fatigue; Denies: fever(s), chills, body aches, change in appetite, malaise or diaphoresis Eyes: Denies: change in vision, blurry vision, photophobia, eye discomfort, eye discharge or eye redness ENMT: Denies: throat pain, odynophagia, hoarseness, swelling of lips/tongue, dry mouth, ear or mastoid pain, ear discharge, change in hearing, nasal discharge or nasal congestion Card: Reports: chest pain, dyspnea on exertion and orthopnea; Denies: palpitations, irregular heart rhythm, edema, lightheadedness, syncope or pre-syncope Resp: Reports: dyspnea and non-productive cough; Denies: productive cough, wheezing, hemoptysis or chest congestion GI: Reports: constipation; Denies: abdominal pain, nausea, vomiting, hematemesis, coffee ground emesis, heartburn, diarrhea, GI cramping, hematochezia or melena : Reports: nocturia; Denies: flank pain, difficulty voiding, dysuria, urinary frequency, urinary urgency or hematuria Musc: Reports: back pain; Denies: neck pain, extremity pain, extremity swelling, joint pain, joint swelling, joint redness, joint warmth or joint stiffness Skin/Breast: Reports: surgical incision; Denies: rash, pruritus, erythema or skin tenderness Neuro: Denies: headache(s), numbness in extremities, weakness in extremities, sensory changes, lack of coordination, difficulty walking, dizziness, vertigo, confusion, Slurred speech present or seizure-like activity Psych: Reports: anxiety; Denies: depression Keith/Lymph: Denies: easy bruising, easy bleeding, petechiae, purpura or enlarged lymph nodes All/Imm: Denies: urticaria, throat swelling, tongue swelling, facial swelling or acute wheezing Meds/Allergies Home Medications and Allergies Home Medications Medication Instructions Recorded Confirmed Last Taken Type albuterol sulfate 90 mcg/actuation 2 puff INHALATION Q6H PRN 07/06/19 02/10/20 01/22/20 18:00 History aerosol inhaler fluticasone propionate 50 1 spray INTRANASAL BID 60 Days 08/03/19 02/10/20 01/22/20 18:00 Rx mcg/actuation nasal #18.2 ml spray,suspension verapamil 180 mg 24 hr 180 mg PO QAM #30 cap 08/31/19 02/10/20 01/22/20 08:00 Rx capsule,extended release omeprazole 40 mg PO BID #120 cap 09/25/19 02/10/20 01/22/20 18:00 Rx albuterol sulfate 2.5 mg INHALATION QID 10/05/19 02/10/20 01/22/20 12:00 History montelukast 10 mg tablet 10 mg PO DAILY 30 Days #30 tab 12/02/19 02/10/20 01/22/20 08:00 Rx prednisone 5 mg tablet 5 mg PO .COMPLEX #30 tab 12/02/19 02/10/20 01/22/20 08:00 Rx duloxetine 60 mg capsule,delayed 60 mg PO .morning #90 cap 12/03/19 02/10/20 01/22/20 08:00 Rx release hydroxyzine HCl 25 mg tablet 25 mg PO BID PRN #180 tab 12/03/19 02/10/20 01/22/20 21:00 Rx ropinirole 0.5 mg tablet 0.5 mg PO BID #180 tab 12/03/19 02/10/20 01/22/20 21:00 Rx topiramate 100 mg tablet 100 mg PO BID #180 tab 12/03/19 02/10/20 01/22/20 21:00 Rx trazodone 150 mg tablet 150 mg PO .QHS PRN #90 tab 12/03/19 02/10/20 01/22/20 21:00 Rx amitriptyline 100 mg tablet 100 mg PO .hs #30 tab 12/16/19 02/10/20 01/22/20 21:00 Rx methadone 10 mg tablet 10 mg PO Q6H 30 Days #120 tab 12/16/19 02/10/20 01/22/20 21:00 Rx naproxen 500 mg tablet 500 mg PO BID 30 Days #60 tab 12/16/19 02/10/20 01/22/20 08:00 Rx oxycodone-acetaminophen 10 mg-325 1 tab PO TID PRN 30 Days #90 tab 12/16/19 02/10/20 01/22/20 21:00 Rx mg tablet omalizumab 150 mg subcutaneous 150 mg SUBCUT .[id number] #2 each 01/13/20 02/10/20 Unknown Rx solution aspirin 81 mg PO DAILY #100 tab 01/25/20 02/10/20 Unknown Rx atorvastatin 40 mg PO BEDTIME #30 tab 01/25/20 02/10/20 Unknown Rx clopidogrel 75 mg PO DAILY #90 tab 01/25/20 02/10/20 Unknown Rx lisinopril 2.5 mg PO DAILY #90 tab 01/25/20 02/10/20 Unknown Rx metoprolol succinate 25 mg PO DAILY #180 tab 01/25/20 02/10/20 Unknown Rx budesonide 0.5 mg/2 mL suspension See Rx Instructions .ROUTE 02/01/20 02/10/20 Unknown Rx for nebulization .COMPLEX #60 vial formoterol fumarate 20 mcg/2 mL See Rx Instructions .ROUTE 02/01/20 02/10/20 Unknown Rx solution for nebulization .COMPLEX #60 vial revefenacin 175 mcg/3 mL solution See Rx Instructions .ROUTE 02/01/20 02/10/20 Unknown Rx for nebulization .COMPLEX #30 vial epinephrine 0.15 mg/0.3 mL 0.15 mg IM Q30M PRN #2 each 02/04/20 02/10/20 Unknown Rx injection,auto-injector Allergies Allergy/AdvReac Type Severity Reaction Status Date / Time codeine Allergy Unknown Unknown Verified 02/04/20 16:18 doxycycline Allergy Unknown ALGY-Hives Verified 02/04/20 16:18 Iodinated Contrast Media Allergy Unknown ALGY-Hives Verified 02/04/20 16:18 Sulfa (Sulfonamide Allergy Unknown Unknown Verified 02/04/20 16:18 Antibiotics) gabapentin Allergy Unknown Verified 02/04/20 16:18 Current Medications Current Medications Generic Name Dose Route Start Last Admin Trade Name Freq PRN Reason Stop Dose Admin Albuterol Sulfate 2 puff 02/10/20 08:20 02/10/20 09:07 Ventolin INHALATION 2 puff Q6H PRN Administration Shortness Of Breath Or Wheezing Aspirin 81 mg 02/10/20 09:00 02/10/20 08:58 Aspirin Ec PO 81 mg DAILY CARLEY Administration Clopidogrel Bisulfate 75 mg 02/10/20 09:00 02/10/20 08:58 Plavix PO 75 mg DAILY CARLEY Administration Duloxetine HCl 60 mg 02/10/20 09:00 02/10/20 09:02 Cymbalta PO 60 mg DAILY CARLEY Administration Fluticasone Propionate 1 spray 02/10/20 09:00 02/10/20 17:18 Flonase INTRANASAL 1 spray BID CARLEY Administration Furosemide 40 mg 02/10/20 08:30 02/10/20 08:59 Lasix IVP 40 mg Q24H CARLEY Administration Lisinopril 2.5 mg 02/10/20 09:00 02/10/20 08:58 Prinivil PO 2.5 mg DAILY CARLEY Administration Methadone HCl 10 mg 02/10/20 08:30 02/10/20 15:57 Dolophine PO 10 mg Q6H CARLEY Administration Metoprolol Succinate 25 mg 02/10/20 09:00 02/10/20 08:59 Toprol Xl PO 25 mg DAILY CARLEY Administration Montelukast Sodium 10 mg 02/10/20 09:00 02/10/20 08:58 Singulair PO 10 mg DAILY CARLYE Administration Pantoprazole Sodium 40 mg 02/10/20 09:00 02/10/20 17:21 Protonix PO 40 mg BID CARLEY Administration Potassium Chloride 20 meq 02/10/20 09:00 02/10/20 08:59 Klor-Con 10 PO 20 meq DAILY CARLEY Administration Ropinirole HCl 0.5 mg 02/10/20 09:00 02/10/20 17:21 Requip PO 0.5 mg BID CARLEY Administration Topiramate 100 mg 02/10/20 09:00 02/10/20 17:21 Topamax PO 100 mg BID CARLEY Administration Verapamil HCl 180 mg 02/10/20 09:00 02/10/20 10:13 Verapamil Er PO 180 mg DAILY CARLEY Administration Additional Medication Information Active Medications Generic Name Dose Route Start Last Admin Trade Name Freq PRN Reason Stop Dose Admin Acetaminophen 650 mg 02/10/20 01:28 Tylenol PO Q6H PRN Mild/Mod Pain Or Temp >/= 101 Albuterol Sulfate 2 puff 02/10/20 08:20 02/10/20 09:07 Ventolin INHALATION 2 puff Q6H PRN Administration Shortness Of Breath Or Wheezing Albuterol/Ipratropium 3 ml 02/10/20 12:33 Duoneb INHALATION Q6H PRN SHORTNESS OF BREATH Amitriptyline HCl 100 mg 02/10/20 21:00 Elavil PO BEDTIME CARLEY Aspirin 81 mg 02/10/20 09:00 02/10/20 08:58 Aspirin Ec PO 81 mg DAILY CARLEY Administration Atorvastatin Calcium 40 mg 02/10/20 21:00 Lipitor PO BEDTIME CARLEY Budesonide 0.5 mg 02/10/20 20:00 Pulmicort INHALATION BID.RESPIRATORY CARLEY Clopidogrel Bisulfate 75 mg 02/10/20 09:00 02/10/20 08:58 Plavix PO 75 mg DAILY CARLEY Administration Duloxetine HCl 60 mg 02/10/20 09:00 02/10/20 09:02 Cymbalta PO 60 mg DAILY CARLEY Administration Fluticasone Propionate 1 spray 02/10/20 09:00 02/10/20 08:57 Flonase INTRANASAL 1 spray BID CARLEY Administration Furosemide 40 mg 02/10/20 08:30 02/10/20 08:59 Lasix IVP 40 mg Q24H CARLEY Administration Lisinopril 2.5 mg 02/10/20 09:00 02/10/20 08:58 Prinivil PO 2.5 mg DAILY CARLEY Administration Methadone HCl 10 mg 02/10/20 08:30 02/10/20 08:59 Dolophine PO 10 mg Q6H CARLEY Administration Metoprolol Succinate 25 mg 02/10/20 09:00 02/10/20 08:59 Toprol Xl PO 25 mg DAILY CARLEY Administration Montelukast Sodium 10 mg 02/10/20 09:00 02/10/20 08:58 Singulair PO 10 mg DAILY CARLEY Administration Ondansetron HCl 4 mg 02/10/20 01:28 Zofran IVP Q6H PRN NAUSEA AND VOMITING Oxycodone/Acetaminophen 1 tab 02/10/20 08:20 Percocet 10-325 Mg PO TID PRN pain Pantoprazole Sodium 40 mg 02/10/20 09:00 02/10/20 09:02 Protonix PO 40 mg BID CARLEY Administration Potassium Chloride 20 meq 02/10/20 09:00 02/10/20 08:59 Klor-Con 10 PO 20 meq DAILY CARLEY Administration Prednisone 5 mg 02/11/20 09:00 Prednisone PO Q48H CARLEY Ropinirole HCl 0.5 mg 02/10/20 09:00 02/10/20 08:58 Requip PO 0.5 mg BID CARLEY Administration Topiramate 100 mg 02/10/20 09:00 02/10/20 08:58 Topamax PO 100 mg BID CARLEY Administration Trazodone HCl 150 mg 02/10/20 08:20 Desyrel PO BEDTIME PRN sleep Verapamil HCl 180 mg 02/10/20 09:00 02/10/20 10:13 Verapamil Er PO 180 mg DAILY CARLEY Administration codeine Allergy (Unknown, Verified 02/04/20 16:18) Unknown doxycycline Allergy (Unknown, Verified 02/04/20 16:18) ALGY-Hives Iodinated Contrast Media Allergy (Unknown, Verified 02/04/20 16:18) ALGY-Hives Sulfa (Sulfonamide Antibiotics) Allergy (Unknown, Verified 02/04/20 16:18) Unknown gabapentin Allergy (Verified 02/04/20 16:18) Unknown PFSH Acute PFSH: Medical History Asthma severe persistent, started xolair 02/04/2020 CAD (coronary artery disease) (~12/2019) anterior wall stemi, s/p stent to LAD Chronic post-traumatic stress disorder Chronic radicular lumbar pain COPD (chronic obstructive pulmonary disease) Essential (primary) hypertension Generalized anxiety disorder GERD (gastroesophageal reflux disease) Herniated disc Lesion of ulnar nerve, bilateral Major depressive disorder, recurrent severe without psychotic features Sleep apnea, unspecified Surgical History H/O bilateral oophorectomy H/O skin graft History of carpal tunnel release History of cholecystectomy Presence of stent in LAD coronary artery (01/23/20) S/P section Family History Father Myocardial infarct, Onset Age: 45 Brother Myocardial infarct, Onset Age: 53 Other CAD (coronary artery disease) Social History Smoking and tobacco status: current every day smoker cigarettes Years cigarettes smoked: 40 [ Other cigarette details: down to about half pack per day ] Quit status (tobacco): has tried quititng Alcohol intake: current Alcohol intake frequency: holidays/special occasions only Lives independently: Yes Household members: family Current occupational status: disabled History of recent travel: No Current gender identity: Female Dietary Habits: Current diet type/program: regular Caffeine: Yes Exercise: What type of physical activity do you participate in?: none Safety: Seatbelt use: always Home Safety: Working smoke detector in home: Yes Personal Safety: Do you feel safe at home: Yes Vitals/I&O/Wt Last Vital Signs Temp 98.8 F 02/10/20 19:40 Pulse 92 02/10/20 19:40 Resp 22 H 02/10/20 19:40 BP 98/52 02/10/20 19:40 Pulse Ox 93 02/10/20 19:40 02/10/20 02/10/20 02/10/20 06:59 14:59 22:59 Intake Total 1196.667 / 1196.667 720 / 720 356 / 1076 Output Total 1000 / 1000 1750 / 1750 Balance 196.667 / 196.667 -1030 / -1030 356 / -674 Weight last 48 hrs Weight 197 lb 9 oz Weight 197 lb 9 oz Weight 195 lb Physical Exam Narrative: EXAM NARRATIVE: GENERAL: Patient is alert, awake and oriented x3. Sitting in the bed somewhat tachypnea NECK: No jugular vein distension. HEENT: No cyanosis. No icterus. No pallor. HEART: Regular S1 and S2. No murmur, rub or gallop. LUNGS: Decreased breath sound bilaterally with prolonged expiratory. ABDOMEN: Soft, nontender and nondistended. Positive bowel sounds. No guarding, rebound or tenderness. CENTRAL NERVOUS SYSTEM: Grossly nonfocal. EXTREMITIES: Lower extremities with 1+ edema bilaterally. A&P Assessment and plan (1) Essential (primary) hypertension: Status: Acute (2) CAD (coronary artery disease): Patient has recent history of proximal LAD stent placement. Last night she was admitted with chest pressure PND orthopnea and worsening of shortness of breath suspicious for angina and consistent with acute congestive heart failure. She was ruled out for acute coronary syndrome. We agree with IV diuresis and optimization of medicine Status: Chronic Qualifiers: Coronary Disease-Associated Artery/Lesion type: [place] artery [place] vs. transplanted heart: [place] heart Associated angina: with unspecified angina Qualified Code(s): I25.119 - Atherosclerotic heart disease of [place] coronary artery with unspecified angina pectoris (3) Acute exacerbation of CHF (congestive heart failure): Patient has new onset of acute diastolic heart failure with worsening of shortness of breath PND orthopnea. Continue IV diuresis with 40 mg of IV Lasix goal is 1 to 1.5 L/day negative. Continue to optimize medicine alongside. Status: Acute (4) Chest pain: Most likely due to CHF exacerbation. Currently denies any more chest pain. 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 transplanted heart: [place] heart Associated angina: with unspecified angina Acute exacerbation of CHF (congestive heart failure) I50.9 Chest pain R07.9 Chest pain type: unspecified
[2020-02-10] MEDS: atorvastatin 40 mg Tablet PO (21:10)
[2020-02-10] MEDS: budesonide 0.5 mg/2 mL Neb INHALATION (22:20)
[2020-02-11] VITALS (12 sets, daily range): BP systolic 94–125; BP diastolic 58–74; PULSE 89–94; RESP 16–24; TEMP 36.4–36.9; O2SAT 92–99
[2020-02-11] MEDS: methadone 10 mg Tablet PO ×4 (03:02→22:59)
[2020-02-11 05:32] LABS: Basophils # 0.1 10^3/uL (0.0-0.1); Basophils % 1.4 %; Eosinophils # 0.4 10^3/uL (0.0-0.8); Eosinophils % 4.6 %; Hematocrit 33.1 % (37.0-47.0); Hemoglobin 9.1 g/dL (11.5-15.3); Lymphocytes # 3.7 10^3/uL (0.8-4.8); Lymphocytes % 47.1 %; Mean Corpuscular HGB Conc 27.5 g/dL (30.0-36.0); Mean Corpuscular Hemoglobin 21.8 pg (28.0-34.0); Mean Corpuscular Volume 79.2 fL (81-99); Mean Platelet Volume 10.6 fL (7.4-10.4); Monocytes # 0.6 10^3/uL (0.2-0.9); Monocytes % 7.5 %; Neutrophils # 3.06 10^3/uL (1.8-7.7); Neutrophils % 39.1 %; Nucleated Red Blood Cells % 0 %; Platelet Count 454 10^3/cmm (130-400); Red Blood Count 4.18 10^6/uL (4.1-5.3); Red Cell Distribution Width 18.6 % (12.1-15.1); White Blood Count 7.8 10^3/uL (4.0-10.0)
[2020-02-11 06:05] LABS: Ferritin 13 ng/mL (15-150)
[2020-02-11 06:10] LABS: Anion Gap 9.8 (5-19); Blood Urea Nitrogen 9 mg/dL (6-20); Calcium 8.8 mg/dL (8.5-10.5); Carbon Dioxide 29 mmol/L (22-29); Chloride 105 mmol/L (98-107); Glomerular Filtration Rate 87.2 mL/min (90-130); Glucose 93 mg/dL (65-115); Osmolality Calculated 286 mOsm/kg (285-295); Potassium 3.8 mmol/L (3.5-5.1); Sodium 140 mmol/L (136-145)
[2020-02-11] MEDS: budesonide 0.5 mg/2 mL Neb INHALATION ×2 (07:37→21:20)
[2020-02-11] MEDS: ipratropium-albuterol 3 mL Neb INHALATION (07:37)
[2020-02-11] MEDS: FUROsemide 10 mg/mL SDV 4mL 40 MG IVP ×2 (08:42→20:50)
[2020-02-11] MEDS: pantoprazole DR 40 mg Tablet PO ×2 (09:41→18:23)
[2020-02-11] MEDS: ropinirole 0.25 mg Tablet 0.5 MG PO ×2 (09:41→18:23)
[2020-02-11] MEDS: montelukast sodium 10 mg Tablet PO (09:42)
[2020-02-11] MEDS: metoprolol succinate ER (24 HR) 25 mg Tablet PO (09:42)
[2020-02-11] MEDS: topiramate 100 mg Tablet PO ×2 (09:42→18:23)
[2020-02-11] MEDS: predniSONE 5 mg Tablet PO (09:42)
[2020-02-11] MEDS: clopidogrel 75 mg Tablet PO (09:42)
[2020-02-11] MEDS: duloxetine 60 mg Capsule PO (09:42)
[2020-02-11] MEDS: potassium chloride ER 10 mEq Tablet 20 MEQ PO ×2 (09:42→20:51)
[2020-02-11] MEDS: verapamil ER 180 mg Tablet PO (09:42)
[2020-02-11] MEDS: fluticasone nasal spray 16gm Btl 1 SPRAY INTRANASAL ×2 (09:43→18:23)
[2020-02-11] MEDS: lisinopril 2.5 mg Tablet PO (09:43)
[2020-02-11] MEDS: aspirin 81 mg EC Tablet PO (09:43)
--- NOTE | 2020-02-11 11:09 | PM.PN ---
Subjective Subjective: Interval history: Had 1200 mL urine output overnight and additional 1000 mL so far today. Hemodynamically stable, remains on nasal cannula. Labs stable including hemoglobin at 9.1, normal renal function and electrolytes. So far has a net negative fluid balance of 277 mL. Echo with noted ejection fraction of 57%. Escalated diuresis to 40 mg of Lasix twice a day IV. She is feeling much better, less dyspneic with exertion. Medications: Reviewed: Yes Medication Review Details: Active Medications Generic Name Dose Route Start Last Admin Trade Name Freq PRN Reason Stop Dose Admin Acetaminophen 650 mg 02/10/20 01:28 Tylenol PO Q6H PRN Mild/Mod Pain Or Temp >/= 101 Albuterol Sulfate 2 puff 02/10/20 08:20 02/10/20 09:07 Ventolin INHALATION 2 puff Q6H PRN Administration Shortness Of [place] th Or Wheezing Albuterol/Ipratrop ium 3 ml 02/10/20 12:33 02/11/20 07:37 Duoneb INHALATION 3 ml Q6H PRN Administration SHORTNESS OF [place] TH Amitriptyline HCl 100 mg 02/10/20 21:00 02/10/20 21:10 Elavil PO 100 mg BEDTIME CARLEY Administration Aspirin 81 mg 02/10/20 09:00 02/11/20 09:43 Aspirin Ec PO 81 mg DAILY CARLEY Administration Atorvastatin Calci um 40 mg 02/10/20 21:00 02/10/20 21:10 Lipitor PO 40 mg BEDTIME CARLEY Administration Budesonide 0.5 mg 02/10/20 20:00 02/11/20 07:37 Pulmicort INHALATION 0.5 mg BID.RESPIRATORY S CH Administration Clopidogrel Bisulf ate 75 mg 02/10/20 09:00 02/11/20 09:42 Plavix PO 75 mg DAILY CARLEY Administration Duloxetine HCl 60 mg 02/10/20 09:00 02/11/20 09:42 Cymbalta PO 60 mg DAILY CARLEY Administration Fluticasone Propio jaci 1 spray 02/10/20 09:00 02/11/20 09:43 Flonase INTRANASAL 1 spray BID CARLEY Administration Furosemide 40 mg 02/11/20 20:30 Lasix IVP Q12H CARLEY Lisinopril 2.5 mg 02/10/20 09:00 02/11/20 09:43 Prinivil PO 2.5 mg DAILY CARLEY Administration Methadone HCl 10 mg 02/10/20 08:30 02/11/20 09:41 Dolophine PO 10 mg Q6H CARLEY Administration Metoprolol Succina te 25 mg 02/10/20 09:00 02/11/20 09:42 Toprol Xl PO 25 mg DAILY CARLEY Administration Montelukast Sodium 10 mg 02/10/20 09:00 02/11/20 09:42 Singulair PO 10 mg DAILY CARLEY Administration Ondansetron HCl 4 mg 02/10/20 01:28 Zofran IVP Q6H PRN NAUSEA AND VOMITI NG Oxycodone/Acetamin ophen 1 tab 02/10/20 08:20 Percocet 10-325 Mg PO TID PRN pain Pantoprazole Sodiu m 40 mg 02/10/20 09:00 02/11/20 09:41 Protonix PO 40 mg BID CARLEY Administration Potassium Chloride 20 meq 02/11/20 20:00 Klor-Con 10 PO Q12H CARLEY Prednisone 5 mg 02/11/20 09:00 02/11/20 09:42 Prednisone PO 5 mg Q48H CARLEY Administration Ropinirole HCl 0.5 mg 02/10/20 09:00 02/11/20 09:41 Requip PO 0.5 mg BID CARLEY Administration Topiramate 100 mg 02/10/20 09:00 02/11/20 09:42 Topamax PO 100 mg BID CARLEY Administration Trazodone HCl 150 mg 02/10/20 08:20 Desyrel PO BEDTIME PRN sleep Verapamil HCl 180 mg 02/10/20 09:00 02/11/20 09:42 Verapamil Er PO 180 mg DAILY CARLEY Administration codeine Allergy (Unknown, Verified 02/04/20 16:18) Unknown doxycycline Allergy (Unknown, Verified 02/04/20 16:18) ALGY-Hives Iodinated Contrast Media Allergy (Unknown, Verified 02/04/20 16:18) ALGY-Hives Sulfa (Sulfonamide Antibiotics) Allergy (Unknown, Verified 02/04/20 16:18) Unknown gabapentin Allergy (Verified 02/04/20 16:18) Unknown Vitals/I&O/Wt Last Vital Signs Temp 97.6 F 02/11/20 07:53 Pulse 89 08/13/20 07:53 Resp 22 H 02/11/20 07:53 BP 105/72 02/11/20 07:53 Pulse Ox 93 02/11/20 07:53 02/10/20 02/11/20 02/11/20 22:59 06:59 14:59 Intake Total 556 / 1276 1600 / 2876 600 / 600 Output Total 2200 / 3950 Balance 556 / -474 -600 / -1074 600 / 600 Weight last 48 hrs Weight 90.855 kg Weight 89.613 kg Weight 89.613 kg Weight 88.451 kg Physical Exam Const: COMMON NORMALS: no acute distress, patient oriented x3 and alert GENERAL APPEARANCE: cooperative and comfortable NUTRITIONAL APPEARANCE: obese morbidly obese ORIENTATION/CONSCIOUSNESS: Yes awake OTHER: -Very pleasant HENMT: COMMON NORMALS: normocephalic, atraumatic, hearing grossly normal bilaterally and moist oral mucous membranes HEAD & SCALP: normocephalic and atraumatic Eye: COMMON NORMALS: Equal, round and reactive pupils present, EOMs intact bilaterally and conjunctivae normal CONJUNCTIVA: Yes conjunctivae normal PUPIL: Yes Equal, round and reactive pupils present Neck/C-Spine: COMMON NORMALS: full ROM GENERAL: Yes normal visual inspection and Yes trachea midline Resp: COMMON NORMALS: normal respiratory effort, No retractions and No use of accessory muscles EFFORT & INSPECTION: Yes able to speak in complete sentences, Yes symmetric chest movement and Yes tachypneic (intermittently) AUSCULTATION: diminished lung sounds bilateral OTHER: -less dyspneic with exertion Cardio: COMMON NORMALS: regular rate, regular rhythm, S1 normal heart sound present, S2 normal heart sound present and No murmurs present (Cardio) RATE: regular rate RHYTHM: regular rhythm HEART SOUNDS: S1 normal heart sound present and S2 normal heart sound present GI: COMMON NORMALS: Normal to inspection, nondistended, normoactive bowel sounds present, Soft to palpation and non-tender PALPATION: Yes Soft to palpation Extremity: COMMON NORMALS: normal to inspection, full ROM and no clubbing, cyanosis or edema; negative for no pedal edema Neuro: COMMON NORMALS: patient oriented x3, moves all extremities, no focal motor deficits and no sensory deficits noted SENSORIUM/ORIENTATION: Yes alert Psych: COMMON NORMALS: mental status grossly normal, Normal thought process present, cooperative, normal affect and speech normal SPEECH: Yes normal speech THOUGHT PROCESS: Normal thought process present Skin: COMMON NORMALS: no rashes or lesions noted, no jaundice, no petechiae and no mottling GENERAL SKIN EXAM: no rashes or lesions noted Data : 02/11/20 04:23 02/11/20 04:23 A&P Assessment and plan (1) New onset of congestive heart failure: -Could be secondary to recent STEMI requiring intervention with stenting of LAD last month -Echo: EF=57%, normal systolic and diastolic function, no RWMA, trace TR, trace MN -Continue IV diuresis with Lasix; increased to twice daily dosing to optimize diuresis. If continued improvement, will switch to oral lasix tomorrow -Continue to monitor electrolytes and renal function -Daily weights, monitor ins and outs -BNP elevated at 948 -Chest x-ray reported as unremarkable -Close monitoring of respiratory status, supplemental oxygen as needed Status: Acute (2) Chest pain: -Appears to be atypical but per patient presentation is quite similar to what she had with STEMI -Troponins noted, no significant delta -Cardiology assessment by Dr. Bass appreciated -Continue aspirin, Plavix, statin, beta-aniket -Telemetry monitoring -VSS; continue to monitor Status: Acute Qualifiers: Chest pain type: unspecified Qualified Code(s): R07.9 - Chest pain, unspecified (3) CAD (coronary artery disease): -Known history of CAD with recent stenting of LAD due to STEMI in December -Follows up with Dr. Salcedo Status: Chronic Qualifiers: Associated angina: with unspecified angina Coronary Disease-Associated Artery/Lesion type: [place] artery [place] vs. transplanted heart: [place] heart Qualified Code(s): I25.119 - Atherosclerotic heart disease of [place] coronary artery with unspecified angina pectoris (4) Asthma: -Follows up with Dr. West Status: Chronic Qualifiers: Asthma complication type: unspecified Asthma persistence: persistent Asthma severity: severe Qualified Code(s): J45.50 - Severe persistent asthma, uncomplicated (5) Essential (primary) hypertension: -VSS; continue to monitor -continue oral antihypertensives Status: Acute (6) COPD (chronic obstructive pulmonary disease): -no acute exacerbation -does not appear to be oxygen dependent at baseline -recently restarted smoking, 1/2 PPD Status: Chronic Qualifiers: COPD type: unspecified COPD Qualified Code(s): J44.9 - Chronic obstructive pulmonary disease, unspecified (7) KRISTOFER on CPAP: Status: Chronic (8) GERD (gastroesophageal reflux disease): -on PPI Status: Chronic Qualifiers: Esophagitis presence: esophagitis presence not specified Qualified Code(s): K21.9 - Gastro-esophageal reflux disease without esophagitis (9) Normocytic anemia: -Seems to have intermittent normocytic anemia with a baseline hemoglobin of about 10-11, intermittently normal -Has been on dual antiplatelet therapy given recent stenting -Continue to monitor H&H closely; stable so far -FOBT pending, iron and ferritin low Status: Acute Additional A&P Information -Morbid obesity: BMI-33 kg/m2 -PTSD, anxiety, depression -Chronic back pain -cardiac diet as tolerated -GI ppx with PPI -DVT ppx with SCDs -Dispo: home -Code status: FULL code Attestations Medical Necessity Statement*: Patient requires hospitalization for continued IV diuresis secondary to acutely decompensated new onset diastolic CHF. Time Spent in Patient Care: 16 - 35 minutes (>than 50% of time spent in counselling and/or direct pt care on unit). Coding Level of Care Code Acute Laboratory Immunologist for Chg Fwd Exam Comprehensive Diagnoses New onset of congestive heart failure I50.9 Chest pain R07.9 Chest pain type: unspecified CAD (coronary artery disease) I25.119 Associated angina: with unspecified angina Coronary Disease-Associated Artery/Lesion type: [place] artery [place] vs. transplanted heart: [place] heart Asthma J45.50 Asthma complication type: unspecified Asthma persistence: persistent Asthma severity: severe Essential (primary) hypertension I10 COPD (chronic obstructive pulmonary disease) J44.9 COPD type: unspecified COPD KRISTOFER on CPAP G47.33; Z99.89 GERD (gastroesophageal reflux disease) K21.9 Esophagitis presence: esophagitis presence not specified Normocytic anemia D64.9
--- NOTE | 2020-02-11 12:55 | PM.PN ---
Subjective Subjective: Interval history: She is breathing much better and laying flat on the bed. Medications: Reviewed: Yes Medication Review Details: Active Medications Generic Name Dose Route Start Last Admin Trade Name Freq PRN Reason Stop Dose Admin Acetaminophen 650 mg 02/10/20 01:28 Tylenol PO Q6H PRN Mild/Mod Pain Or Temp >/= 101 Albuterol Sulfate 2 puff 02/10/20 08:20 02/10/20 09:07 Ventolin INHALATION 2 puff Q6H PRN Administration Shortness Of [place] th Or Wheezing Albuterol/Ipratrop ium 3 ml 02/10/20 12:33 02/11/20 07:37 Duoneb INHALATION 3 ml Q6H PRN Administration SHORTNESS OF [place] TH Amitriptyline HCl 100 mg 02/10/20 21:00 02/10/20 21:10 Elavil PO 100 mg BEDTIME CARLEY Administration Aspirin 81 mg 02/10/20 09:00 02/11/20 09:43 Aspirin Ec PO 81 mg DAILY CARLEY Administration Atorvastatin Calci um 40 mg 02/10/20 21:00 02/10/20 21:10 Lipitor PO 40 mg BEDTIME CARLEY Administration Budesonide 0.5 mg 02/10/20 20:00 02/11/20 07:37 Pulmicort INHALATION 0.5 mg BID.RESPIRATORY S CH Administration Clopidogrel Bisulf ate 75 mg 02/10/20 09:00 02/11/20 09:42 Plavix PO 75 mg DAILY CARLEY Administration Duloxetine HCl 60 mg 02/10/20 09:00 02/11/20 09:42 Cymbalta PO 60 mg DAILY CARLEY Administration Fluticasone Propio jaci 1 spray 02/10/20 09:00 02/11/20 09:43 Flonase INTRANASAL 1 spray BID CARLEY Administration Furosemide 40 mg 02/11/20 20:30 Lasix IVP Q12H CARLEY Lisinopril 2.5 mg 02/10/20 09:00 02/11/20 09:43 Prinivil PO 2.5 mg DAILY CARLEY Administration Methadone HCl 10 mg 02/10/20 08:30 02/11/20 09:41 Dolophine PO 10 mg Q6H CARLEY Administration Metoprolol Succina te 25 mg 02/10/20 09:00 02/11/20 09:42 Toprol Xl PO 25 mg DAILY CARLEY Administration Montelukast Sodium 10 mg 02/10/20 09:00 02/11/20 09:42 Singulair PO 10 mg DAILY CARLEY Administration Ondansetron HCl 4 mg 02/10/20 01:28 Zofran IVP Q6H PRN NAUSEA AND VOMITI NG Oxycodone/Acetamin ophen 1 tab 02/10/20 08:20 Percocet 10-325 Mg PO TID PRN pain Pantoprazole Sodiu m 40 mg 02/10/20 09:00 02/11/20 09:41 Protonix PO 40 mg BID CARLEY Administration Potassium Chloride 20 meq 02/11/20 20:00 Klor-Con 10 PO Q12H CARLEY Prednisone 5 mg 02/11/20 09:00 02/11/20 09:42 Prednisone PO 5 mg Q48H CARLEY Administration Ropinirole HCl 0.5 mg 02/10/20 09:00 02/11/20 09:41 Requip PO 0.5 mg BID CARLEY Administration Topiramate 100 mg 02/10/20 09:00 02/11/20 09:42 Topamax PO 100 mg BID CARLEY Administration Trazodone HCl 150 mg 02/10/20 08:20 Desyrel PO BEDTIME PRN sleep Verapamil HCl 180 mg 02/10/20 09:00 02/11/20 09:42 Verapamil Er PO 180 mg DAILY CARLEY Administration codeine Allergy (Unknown, Verified 02/04/20 16:18) Unknown doxycycline Allergy (Unknown, Verified 02/04/20 16:18) ALGY-Hives Iodinated Contrast Media Allergy (Unknown, Verified 02/04/20 16:18) ALGY-Hives Sulfa (Sulfonamide Antibiotics) Allergy (Unknown, Verified 02/04/20 16:18) Unknown gabapentin Allergy (Verified 02/04/20 16:18) Unknown Vitals/I&O/Wt Last Vital Signs Temp 98.0 F 02/11/20 11:23 Pulse 94 02/11/20 11:23 Resp 20 H 02/11/20 11:23 BP 98/64 02/11/20 11:23 Pulse Ox 95 02/11/20 11:23 02/10/20 02/11/20 02/11/20 22:59 06:59 14:59 Intake Total 556 / 1276 1600 / 2876 840 / 840 Output Total 2200 / 3950 Balance 556 / -474 -600 / -1074 840 / 840 Weight last 48 hrs Weight 200 lb 4.8 oz Weight 197 lb 9 oz Weight 197 lb 9 oz Weight 195 lb Physical Exam Narrative: EXAM NARRATIVE: GENERAL: Patient is alert, awake and oriented x3. Lying in bed without significant distress NECK: No jugular vein distension. HEENT: No cyanosis. No icterus. No pallor. HEART: Regular S1 and S2. No murmur, rub or gallop. LUNGS: Decreased breath sound bilaterally ABDOMEN: Soft, nontender and nondistended. Positive bowel sounds. No guarding, rebound or tenderness. CENTRAL NERVOUS SYSTEM: Grossly nonfocal. EXTREMITIES: Lower extremities without edema bilaterally. Data : 02/11/20 04:23 02/11/20 04:23 A&P Assessment and plan (1) Essential (primary) hypertension: Well-controlled continue med Status: Acute (2) CAD (coronary artery disease): Stable from coronary disease perspective continue current regimen Status: Chronic Qualifiers: Coronary Disease-Associated Artery/Lesion type: [place] artery [place] vs. transplanted heart: [place] heart Associated angina: with unspecified angina Qualified Code(s): I25.119 - Atherosclerotic heart disease of [place] coronary artery with unspecified angina pectoris (3) Acute exacerbation of CHF (congestive heart failure): Patient congestive heart failure systolic type is getting improved continue IV diuresis I will give extra IV Lasix 40 mg twice a day we will switch her to oral Lasix by tomorrow Status: Acute (4) Chest pain: Denies any more chest pain. Continue current Status: Acute Qualifiers: Chest pain type: unspecified Qualified Code(s): R07.9 - Chest pain, unspecified Attestations Medical Necessity Statement*: Patient require continuation hospitalization for above defined care Coding Level of Care Code Established Pt Acute Assistant Producer for Chg Fwd Patient Type Established History Expanded Problem Focused Exam Expanded Problem Focused Medical Decision Making Moderate Complexity Diagnoses Essential (primary) hypertension I10 CAD (coronary artery disease) I25.119 Coronary Disease-Associated Artery/Lesion type: [place] artery [place] vs. transplanted heart: [place] heart Associated angina: with unspecified angina Acute exacerbation of CHF (congestive heart failure) I50.9 Chest pain R07.9 Chest pain type: unspecified
[2020-02-11] MEDS: atorvastatin 40 mg Tablet PO (20:51)
[2020-02-12] VITALS (11 sets, daily range): BP systolic 92–102; BP diastolic 60–72; PULSE 97–105; RESP 17–20; TEMP 36.4–36.8; O2SAT 87–99
[2020-02-12] MEDS: oxyCODONE-APAP 10-325 mg Tablet 1 TAB PO (04:36)
[2020-02-12] MEDS: budesonide 0.5 mg/2 mL Neb INHALATION (07:56)
[2020-02-12] MEDS: ipratropium-albuterol 3 mL Neb INHALATION (07:56)
[2020-02-12] MEDS: FUROsemide 10 mg/mL SDV 4mL 40 MG IVP (08:42)
[2020-02-12] MEDS: fluticasone nasal spray 16gm Btl 1 SPRAY INTRANASAL (08:49)
[2020-02-12] MEDS: metoprolol succinate ER (24 HR) 25 mg Tablet PO (08:50)
[2020-02-12] MEDS: clopidogrel 75 mg Tablet PO (08:50)
[2020-02-12] MEDS: methadone 10 mg Tablet PO (08:50)
[2020-02-12] MEDS: aspirin 81 mg EC Tablet PO (08:50)
[2020-02-12] MEDS: potassium chloride ER 10 mEq Tablet 20 MEQ PO (08:50)
[2020-02-12] MEDS: duloxetine 60 mg Capsule PO (08:50)
[2020-02-12] MEDS: montelukast sodium 10 mg Tablet PO (08:50)
[2020-02-12] MEDS: topiramate 100 mg Tablet PO (08:50)
[2020-02-12] MEDS: ropinirole 0.25 mg Tablet 0.5 MG PO (08:50)
[2020-02-12] MEDS: verapamil ER 180 mg Tablet PO (08:50)
[2020-02-12] MEDS: lisinopril 2.5 mg Tablet PO (08:51)
[2020-02-12] MEDS: pantoprazole DR 40 mg Tablet PO (08:51)
--- NOTE | 2020-02-12 09:49 | PM.DCS ---
Discharge Providers Date of Admission: 02/10/20 20:42 Date of Discharge: February 12, 2020 Attending Provider at Admission: Susi Kimble MD Attending Provider at Discharge: Margarita Nassar MD Consults: Cardiology, Dr. Bass Primary Care Provider: Lauri Krishnan MD Diagnoses at Discharge Discharge Diagnosis (1) New onset of congestive heart failure: Status: Acute Problem details: -Could be secondary to recent STEMI requiring intervention with stenting of LAD last month -Echo: EF=57%, normal systolic and diastolic function, no RWMA, trace TR, trace LA -has been on IV diuresis with Lasix; switched to oral lasix -Continue to monitor electrolytes and renal function -Daily weights, monitor ins and outs -BNP elevated at 948 -Chest x-ray reported as unremarkable -Close monitoring of respiratory status, supplemental oxygen as needed (2) Chest pain: Status: Acute Problem details: -Appears to be atypical but per patient presentation is quite similar to what she had with STEMI -Troponins noted, no significant delta -Cardiology assessment by Dr. Bass appreciated -Continue aspirin, Plavix, statin, beta-aniket -Telemetry monitoring -VSS; continue to monitor Qualifiers: Chest pain type: unspecified Qualified Code(s): R07.9 - Chest pain, unspecified (3) CAD (coronary artery disease): Status: Chronic Problem details: -Known history of CAD with recent stenting of LAD due to anterior wall STEMI in December -Follows up with Dr. Salcedo; f/u in [address] Bass Qualifiers: Associated angina: with unspecified angina Coronary Disease-Associated Artery/Lesion type: [place] artery [place] vs. transplanted heart: [place] heart Qualified Code(s): I25.119 - Atherosclerotic heart disease of [place] coronary artery with unspecified angina pectoris (4) Asthma: Status: Chronic Problem details: -severe persistent, started xolair 02/04/2020 -follow up with Dr. West Qualifiers: Asthma complication type: unspecified Asthma persistence: persistent Asthma severity: severe Qualified Code(s): J45.50 - Severe persistent asthma, uncomplicated (5) Essential (primary) hypertension: Status: Chronic Problem details: -VSS; continue to monitor -continue oral antihypertensives (6) COPD (chronic obstructive pulmonary disease): Status: Chronic Problem details: -no acute exacerbation -does not appear to be oxygen dependent at baseline -recently restarted smoking, 1/2 PPD Qualifiers: COPD type: unspecified COPD Qualified Code(s): J44.9 - Chronic obstructive pulmonary disease, unspecified (7) KRISTOFER on CPAP: Status: Chronic (8) GERD (gastroesophageal reflux disease): Status: Chronic Problem details: -on PPI Qualifiers: Esophagitis presence: esophagitis presence not specified Qualified Code(s): K21.9 - Gastro-esophageal reflux disease without esophagitis (9) Normocytic anemia: Status: Acute Problem details: -Seems to have intermittent normocytic anemia with a baseline hemoglobin of about 10-11, intermittently normal -Has been on dual antiplatelet therapy given recent stenting -Continue to monitor H&H closely; stable so far -iron and ferritin low; start on iron replacement Other Information Additional DC diagnoses/information: -Morbid obesity: BMI-33 kg/m2 -PTSD, anxiety, depression -Chronic back pain; f/u with pain management Reason for Visit Reason for Visit: CP Hospital Course Hospital Course: Patient was admitted to the medical surgical unit and started on diuresis secondary to what appeared to be new onset congestive heart failure. Echo was done with noted ejection fraction of 57% and cardiology was consulted as patient recently had a STEMI with concern that new onset CHF was related to this. Dr. Bass was kind enough to evaluate the patient and recommended more aggressive diuresis. Patient is now euvolemic having diuresed a total of 2.6 L. Vital signs have been stable, she has been afebrile and labs have been stable including renal function, electrolytes and hemoglobin. She has now been switched to oral Lasix which we will continue on discharge with potassium supplementation as well. She will require follow-up as an outpatient with cardiology as well as her primary care physician. She should continue to follow-up with Dr. West as well as pain management. She is not oxygen dependent at baseline but with dyspnea and intermittent need for supplemental oxygen, she will have a home oxygen evaluation done prior to discharge and she qualifies for 1 L NC and has been arranged. Discharge Summary: -Patient to follow up with primary care physician within 1 week -Patient to follow up with Dr. Slacedo -Patient to continue to follow up with pain management, Dr. West Physical Exam Const: COMMON NORMALS: no acute distress, patient oriented x3 and alert GENERAL APPEARANCE: cooperative and comfortable NUTRITIONAL APPEARANCE: obese morbidly obese ORIENTATION/CONSCIOUSNESS: Yes awake OTHER: -Very pleasant HENMT: COMMON NORMALS: normocephalic, atraumatic, hearing grossly normal bilaterally and moist oral mucous membranes HEAD & SCALP: normocephalic and atraumatic Eye: COMMON NORMALS: Equal, round and reactive pupils present, EOMs intact bilaterally and conjunctivae normal CONJUNCTIVA: Yes conjunctivae normal PUPIL: Yes Equal, round and reactive pupils present Neck/C-Spine: COMMON NORMALS: full ROM GENERAL: Yes normal visual inspection and Yes trachea midline Resp: COMMON NORMALS: normal respiratory effort, No retractions and No use of accessory muscles EFFORT & INSPECTION: Yes able to speak in complete sentences, Yes symmetric chest movement and Yes tachypneic (intermittently) AUSCULTATION: diminished lung sounds bilateral OTHER: -minimal dyspneic with exertion Cardio: COMMON NORMALS: regular rate, regular rhythm, S1 normal heart sound present, S2 normal heart sound present and No murmurs present (Cardio) RATE: regular rate RHYTHM: regular rhythm HEART SOUNDS: S1 normal heart sound present and S2 normal heart sound present GI: COMMON NORMALS: Normal to inspection, nondistended, normoactive bowel sounds present, Soft to palpation and non-tender PALPATION: Yes Soft to palpation Extremity: COMMON NORMALS: normal to inspection, full ROM and no clubbing, cyanosis or edema; negative for no pedal edema Neuro: COMMON NORMALS: patient oriented x3, moves all extremities, no focal motor deficits and no sensory deficits noted SENSORIUM/ORIENTATION: Yes alert Psych: COMMON NORMALS: mental status grossly normal, Normal thought process present, cooperative, normal affect and speech normal SPEECH: Yes normal speech THOUGHT PROCESS: Normal thought process present Skin: COMMON NORMALS: no rashes or lesions noted, no jaundice, no petechiae and no mottling GENERAL SKIN EXAM: no rashes or lesions noted Discharge Data Data Completed and Pending: Completed Studies During Hospitalization Category Date Time Status XR chest 1V leda ble [id number] Stat Exams 02/09/20 23:58 Completed CV echo complete* [id number] Routine Ultrasound 02/10/20 08:19 Completed Pending at discharge Category Date Time Status Immunochemical Fe dawson OCB Routine Lab 02/10/20 08:35 Ordered Vitals: Last Vital Signs Temp 98.1 F 02/12/20 07:31 Pulse 99 02/12/20 08:00 Resp 17 02/12/20 07:59 BP 100/61 02/12/20 07:31 Pulse Ox 88 L 02/12/20 07:59 Discharge Plan Discharge Patient Disposition: Home Condition: Stable Prescriptions: New ferrous sulfate 325 mg (65 mg iron) tablet,delayed release (DR/EC) 325 mg PO DAILY Qty: 30 RF: 0 furosemide 20 mg tablet See Rx Instructions .ROUTE .COMPLEX 30 Days Qty: 90 RF: 0 potassium chloride 10 mEq tablet extended release See Rx Instructions .ROUTE .COMPLEX Qty: 90 RF: 0 Colace 100 mg capsule 100 mg PO BID 30 Days Qty: 60 RF: 0 Continued albuterol sulfate [ProAir HFA] 90 mcg/actuation HFA aerosol inhaler 2 puff INHALATION Q6H PRN (Reason: Shortness Of Breath Or Wheezing) RF: 0 fluticasone propionate [Flonase Allergy Relief] 50 mcg/actuation spray,suspension 1 spray INTRANASAL BID 60 Days Qty: 18.2 RF: 2 albuterol sulfate 2.5 mg /3 mL (0.083 %) solution for nebulization 2.5 mg INHALATION QID RF: 0 hydroxyzine HCl 25 mg tablet 25 mg PO BID PRN (Reason: anxiety) Qty: 180 RF: 2 duloxetine [Cymbalta] 60 mg capsule,delayed release(DR/EC) 60 mg PO .morning Qty: 90 RF: 2 ropinirole 0.5 mg tablet 0.5 mg PO BID Qty: 180 RF: 4 topiramate [Topamax] 100 mg tablet 100 mg PO BID Qty: 180 RF: 2 trazodone 150 mg tablet 150 mg PO .QHS PRN (Reason: sleep) Qty: 90 RF: 2 montelukast [Singulair] 10 mg tablet 10 mg PO DAILY 30 Days Qty: 30 RF: 3 prednisone 5 mg tablet 5 mg PO .COMPLEX Qty: 30 RF: 3 verapamil 180 mg capsule,ext rel. pellets 24 hr 180 mg PO QAM Qty: 30 RF: 3 methadone 10 mg tablet 10 mg PO Q6H 30 Days Qty: 120 RF: 0 oxycodone-acetaminophen [Percocet] 10-325 mg tablet 1 tab PO TID PRN (Reason: pain) 30 Days Qty: 90 RF: 0 amitriptyline 100 mg tablet 100 mg PO .hs Qty: 30 RF: 1 naproxen 500 mg tablet 500 mg PO BID 30 Days Qty: 60 RF: 1 epinephrine [EpiPen Jr 2-Guille] 0.15 mg/0.3 mL auto-injector 0.15 mg IM Q30M PRN (Reason: anaphylaxis) Qty: 2 RF: 1 omalizumab 150 mg recon soln 150 mg SUBCUT .[id number] Qty: 2 RF: 3 revefenacin [Yupelri] 175 mcg/3 mL solution for nebulization See Rx Instructions .ROUTE .COMPLEX Qty: 30 RF: 11 budesonide 0.5 mg/2 mL suspension for nebulization See Rx Instructions .ROUTE .COMPLEX Qty: 60 RF: 11 formoterol fumarate [Perforomist] 20 mcg/2 mL solution for nebulization See Rx Instructions .ROUTE .COMPLEX Qty: 60 RF: 11 omeprazole 20 mg capsule,delayed release(DR/EC) 40 mg PO BID Qty: 120 RF: 0 atorvastatin 40 mg Tablet 40 mg PO BEDTIME Qty: 30 RF: 3 clopidogrel 75 mg Tablet 75 mg PO DAILY Qty: 90 RF: 2 aspirin 81 mg Tablet,Delayed Release (Dr/Ec) 81 mg PO DAILY Qty: 100 RF: 1 metoprolol succinate 25 mg Tablet Extended Release 24 Hr 25 mg PO DAILY Qty: 180 RF: 2 lisinopril 2.5 mg Tablet 2.5 mg PO DAILY Qty: 90 RF: 2 Discharge Orders: Discharge Order (Routine); Ordered 02/12/20 Ordered By: Margarita Nassar Other Ambulatory Orders: DME: Oxygen (Order) Location: None Selected Ordered By: Margarita Nassar Referrals: [facility] [Outside] Lauri Krishnan MD [Primary Care Provider] - 4-7 days (Post hospital discharge follow up. ) Bozena Salcedo MD [Physician] - 1 week Discharge Diet: Cardiac Discharge Activity: Increase activity as tolerated and Oxygen as instructed Activity Restrictions/Additional Instructions: -Please monitor your blood pressure at home at least once daily, preferably in the morning. Please keep a log for review with your primary care provider. -Please monitor your weight at least once daily, preferably in the morning and keep a log for review with your regular doctor. -Please note that you will require oxygen which is combustible if exposed to open flames which includes cigarettes so please refrain from smoking while using your oxygen. Discharge Attestations Time Spent in Discharge Care*: greater than 30 min Specific Discharge Activities: Specific discharge activities: educating patient, discussing with pcp/other providers, discussing with case filler/social workers/dc planners, documenting/other paperwork and evaluating patient/reviewing data Status at Discharge: Cognitive status at discharge: cognitively intact, Behavioral status at discharge: cooperative and independent in ADL's, Functional status at discharge: independent ambulation Overall status at discharge: patient is progressing back to baseline Quality Metrics Clinical Quality Measures During this hospital stay, did patient experience: None Coding Level of Care Code Acute White Metal Caster for g Fwd Exam Comprehensive Diagnoses New onset of congestive heart failure I50.9 Chest pain R07.9 Chest pain type: unspecified CAD (coronary artery disease) I25.119 Associated angina: with unspecified angina Coronary Disease-Associated Artery/Lesion type: [place] artery [place] vs. transplanted heart: [place] heart Asthma J45.50 Asthma complication type: unspecified Asthma persistence: persistent Asthma severity: severe Essential (primary) hypertension I10 COPD (chronic obstructive pulmonary disease) J44.9 COPD type: unspecified COPD KRISTOFER on CPAP G47.33; Z99.89 GERD (gastroesophageal reflux disease) K21.9 Esophagitis presence: esophagitis presence not specified Normocytic anemia D64.9
--- NOTE | 2020-02-12 12:36 | PC.CHAP ---
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 [] Patient/Family/Request visit [] Outpatient visit [] Follow-up visit [] Physician referral [] Code/Alert [X] Routine visit [] Staff referral [] Actively dying [] Patient sleeping [] Family support [] [] Out of room [] Palliative care [] [] Receiving care in room [] Pre-surgical visit [] Trauma [] Long length of stay [] ICU visit [] Other: Relational/Emotional Strength [X] Patient feels connected with others/family/visitors/staff [] Distress [] Loneliness/isolation [] Abandonment Spirituality of Patient [X] Person of Shirlene [] Attends Denominational of their [place] [X] Believes in Prayer [] Reads Bible or Bahai materials [] There are Spiritual issues to be addressed Industrial Relations Counselor Interventions [X] Prayer [X] Active listening [X] Non-anxious presence [] Spiritual/emotional support [] Crisis/trauma care [] Spiritual counseling [] Bereavement support [] Provided bereavement packet [X] Provided Bible/devotional materials [] Provided toy/stuffed animal, coloring book to patient or family member [] Provided Communion [] Anointing/[place] [] Salvation X] Completed spiritual assessment [] Other: Impact on Illness or Injury [] Angry [] Fearful [] Anxious [] Often cries [] Exhaustion [] Unable to work [] Unable to attend taoism [] Unable to walk/stand [] Unable to read [] Unable to drive [] Unable to eat/drink [] Unable to sleep [] Unable to be with family [] Patient intubated [] Other: Summary PT BEING DISCHARGED TODAY. PT HAPPY AND FEELING GOOD. Time spent with patient 6 MINUTES CONSULTANT RN ANDRIA FRAGOSO
--- NOTE | 2020-02-12 13:15 | PC.NURSE ---
Discharge instructions given, voiced full understanding. Iv dc'd cath intact bleeding controlled with 2x2's and coban.
--- NOTE | 2020-02-12 20:24 | P.PN_ITS ---
Subjective Subjective: Interval history: Stable walking around without any difficulty. She thinks she is ready to go home Medications: Reviewed: Yes Medication Review Details: Active Medications Generic Name Dose Route Start Last Admin Trade Name Freq PRN Reason Stop Dose Admin Acetaminophen 650 mg 02/10/20 01:28 Tylenol PO Q6H PRN Mild/Mod Pain Or Temp >/= 101 Albuterol Sulfate 2 puff 02/10/20 08:20 02/10/20 09:07 Ventolin INHALATION 2 puff Q6H PRN Administration Shortness Of [place] th Or Wheezing Albuterol/Ipratrop ium 3 ml 02/10/20 12:33 02/11/20 07:37 Duoneb INHALATION 3 ml Q6H PRN Administration SHORTNESS OF [place] TH Amitriptyline HCl 100 mg 02/10/20 21:00 02/10/20 21:10 Elavil PO 100 mg BEDTIME CARLEY Administration Aspirin 81 mg 02/10/20 09:00 02/11/20 09:43 Aspirin Ec PO 81 mg DAILY CARLEY Administration Atorvastatin Calci um 40 mg 02/10/20 21:00 02/10/20 21:10 Lipitor PO 40 mg BEDTIME CARLEY Administration Budesonide 0.5 mg 02/10/20 20:00 02/11/20 07:37 Pulmicort INHALATION 0.5 mg BID.RESPIRATORY S CH Administration Clopidogrel Bisulf ate 75 mg 02/10/20 09:00 02/11/20 09:42 Plavix PO 75 mg DAILY CARLEY Administration Duloxetine HCl 60 mg 02/10/20 09:00 02/11/20 09:42 Cymbalta PO 60 mg DAILY CARLEY Administration Fluticasone Propio jaci 1 spray 02/10/20 09:00 02/11/20 09:43 Flonase INTRANASAL 1 spray BID CARLEY Administration Furosemide 40 mg 02/11/20 20:30 Lasix IVP Q12H CARLEY Lisinopril 2.5 mg 02/10/20 09:00 02/11/20 09:43 Prinivil PO 2.5 mg DAILY CARLEY Administration Methadone HCl 10 mg 02/10/20 08:30 02/11/20 09:41 Dolophine PO 10 mg Q6H CARLEY Administration Metoprolol Succina te 25 mg 02/10/20 09:00 02/11/20 09:42 Toprol Xl PO 25 mg DAILY CARLEY Administration Montelukast Sodium 10 mg 02/10/20 09:00 02/11/20 09:42 Singulair PO 10 mg DAILY CARLEY Administration Ondansetron HCl 4 mg 02/10/20 01:28 Zofran IVP Q6H PRN NAUSEA AND VOMITI NG Oxycodone/Acetamin ophen 1 tab 02/10/20 08:20 Percocet 10-325 Mg PO TID PRN pain Pantoprazole Sodiu m 40 mg 02/10/20 09:00 02/11/20 09:41 Protonix PO 40 mg BID CARLEY Administration Potassium Chloride 20 meq 02/11/20 20:00 Klor-Con 10 PO Q12H CARLEY Prednisone 5 mg 02/11/20 09:00 02/11/20 09:42 Prednisone PO 5 mg Q48H CARLEY Administration Ropinirole HCl 0.5 mg 02/10/20 09:00 02/11/20 09:41 Requip PO 0.5 mg BID CARLEY Administration Topiramate 100 mg 02/10/20 09:00 02/11/20 09:42 Topamax PO 100 mg BID CARLEY Administration Trazodone HCl 150 mg 02/10/20 08:20 Desyrel PO BEDTIME PRN sleep Verapamil HCl 180 mg 02/10/20 09:00 02/11/20 09:42 Verapamil Er PO 180 mg DAILY CARLEY Administration codeine Allergy (Unknown, Verified 02/04/20 16:18) Unknown doxycycline Allergy (Unknown, Verified 02/04/20 16:18) ALGY-Hives Iodinated Contrast Media Allergy (Unknown, Verified 02/04/20 16:18) ALGY-Hives Sulfa (Sulfonamide Antibiotics) Allergy (Unknown, Verified 02/04/20 16:18) Unknown gabapentin Allergy (Verified 02/04/20 16:18) Unknown Vitals/I&O/Wt Last Vital Signs Temp 98.2 F 02/12/20 13:24 Pulse 105 H 02/12/20 13:24 Resp 18 02/12/20 13:24 BP 100/69 02/12/20 13:24 Pulse Ox 92 02/12/20 13:24 02/12/20 02/12/20 02/12/20 06:59 14:59 22:59 Intake Total 850 / 2330 920 / 920 Output Total 2550 / 4550 901 / 901 Balance -1700 / -2220 Weight last 48 hrs Weight 195 lb 6 oz Weight 200 lb 4.8 oz Physical Exam Narrative: EXAM NARRATIVE: GENERAL: Patient is alert, awake and oriented x3. NECK: No jugular vein distension. HEENT: No cyanosis. No icterus. No pallor. HEART: Regular S1 and S2. No murmur, rub or gallop. LUNGS: Clear to auscultate bilaterally. ABDOMEN: Soft, nontender and nondistended. Positive bowel sounds. No guarding, rebound or tenderness. CENTRAL NERVOUS SYSTEM: Grossly nonfocal. EXTREMITIES: Lower extremities without edema bilaterally. Data : 02/11/20 04:23 02/11/20 04:23 A&P Assessment and plan (1) Acute exacerbation of CHF (congestive heart failure): Right l compensated now we will switch her to p.o. Lasix Status: Acute Qualifiers: Heart failure type: systolic Qualified Code(s): I50.23 - Acute on chronic systolic (congestive) heart failure (2) Chest pain: Stable denies any more chest pain Status: Acute Qualifiers: Chest pain type: unspecified Qualified Code(s): R07.9 - Chest pain, unspecified (3) CAD (coronary artery disease): Overall stable from a coronary disease perspective Status: Chronic Qualifiers: Coronary Disease-Associated Artery/Lesion type: [place] artery [place] vs. transplanted heart: [place] heart Associated angina: with unspecified angina Qualified Code(s): I25.119 - Atherosclerotic heart disease of [place] coronary artery with unspecified angina pectoris (4) Essential (primary) hypertension: Well-controlled. 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 transplanted heart: [place] heart Associated angina: with unspecified angina Essential (primary) hypertension I10
== END 2020-02-12 13:15 | disposition home or self-care (01) | DRG 282 ==
LOC: ER 02-10 01:03 → MEDSURG 02-10 01:16
PROVIDERS: Emergency Medicine; Admitting Provider Hospitalist; PCP Family Medicine; Visit Provider Family Medicine
DX: I11.0 Hypertensive heart disease with heart failure (principal); I21.09 ST elevation (STEMI) myocardial infarction involving other coronary artery of anterior wall; I50.33 Acute on chronic diastolic (congestive) heart failure; I25.119 Atherosclerotic heart disease of native coronary artery with unspecified angina pectoris; J44.9 Chronic obstructive pulmonary disease, unspecified; J45.50 Severe persistent asthma, uncomplicated; F17.210 Nicotine dependence, cigarettes, uncomplicated; G89.29 Other chronic pain; M54.5 Low back pain; K21.9 Gastro-esophageal reflux disease without esophagitis; F32.9 Major depressive disorder, single episode, unspecified; G47.33 Obstructive sleep apnea (adult) (pediatric); Z79.891 Long term (current) use of opiate analgesic; D64.9 Anemia, unspecified; E66.01 Morbid (severe) obesity due to excess calories; Z68.33 Body mass index [BMI] 33.0-33.9, adult; F43.12 Post-traumatic stress disorder, chronic; Z79.51 Long term (current) use of inhaled steroids
CPT/HCPCS: 12345; 36415; 36600; 71045; 80048; 80053; 80061; 82728; 82803; 83540; 83550; 83690; 83735; 83880; 84484; 85025; 85610; 93005; 93306; 94640; 96375; 99284; G0378; J1940; J3535; J7030; J7512; J7626

== ENCOUNTER → 2020-02-24 09:10 | Outpatient (BNVA) | payer MEDICARE, MEDICAID, SELFPAY | PROVIDERS: Family Provider Family Medicine; PCP Family Medicine; Visit Provider Anesthesiology | DX: G89.4 Chronic pain syndrome (principal); M54.42 Lumbago with sciatica, left side; M54.41 Lumbago with sciatica, right side; M54.16 Radiculopathy, lumbar region; M54.9 Dorsalgia, unspecified; G47.09 Other insomnia; Z79.891 Long term (current) use of opiate analgesic | CPT/HCPCS: 99213; 99214 ==

== ENCOUNTER → 2020-02-25 08:04 | Outpatient (BNVA) | payer MEDICARE, MEDICAID, SELFPAY | PROVIDERS: Family Provider Family Medicine; PCP Family Medicine; Visit Provider Nurse Practitioner Psychiatric/Mental Health | DX: F33.2 Major depressive disorder, recurrent severe without psychotic features (principal); F41.1 Generalized anxiety disorder; F43.12 Post-traumatic stress disorder, chronic; Z63.4 Disappearance and death of family member | CPT/HCPCS: 99213 ==

== ENCOUNTER 2020-03-18 07:46 | Outpatient (CLI) | payer MEDICARE, MEDICAID, SELFPAY ==
--- NOTE | 2020-03-18 08:12 | MR_ITS ---
WS: [id number] MRI BRAIN WITH AND WITHOUT CONTRAST HISTORY: SEIZURE COMPARISON: 11/25/2018 TECHNIQUE: Multiplanar imaging performed through the brain with Prohance 16 ml's IV. Quality of examination is limited due to motion. Patient had multiple episodes of coughing which was not controlled. No acute infarcts are seen. Yoder-white matter differentiation is well preserved. No susceptibility artifacts or prior lacunar infarcts. Hippocampal formations are symmetric bilateral ly. No sclerosis. Ventricles and extra-axial spaces are normal. Empty sella turcica. Small pituitary the floor of the dorsum sellae. Visualized posterior fossa and brainstem are also normal. Postcontrast images are negative for masses or vascular malformations. Dural venous sinuses are normal. Paranasal sinuses: Well aerated with no significant disease. Mastoid air cells: Normal. Calvarium and scalp: Normal. MR/MR head wo/w con [id number] IMPRESSION: 1. No acute infarct. 2. No enhancing masses or prior infarcts. 3. Empty sella turcica. Normal variant. 4. Normal hippocampal formations.
== END 2020-03-18 07:47 | disposition home or self-care (01) ==
LOC: RADSHAW 07:49
PROVIDERS: PCP Family Medicine; Visit Provider Family Medicine
DX: R56.9 Unspecified convulsions (principal)
CPT/HCPCS: 70553; A9579

== ENCOUNTER → 2020-03-28 08:06 | Outpatient (BNVA) | payer MEDICARE, MEDICAID, SELFPAY | PROVIDERS: PCP Family Medicine; Referring Provider Family Medicine; Visit Provider Specialist | DX: R56.9 Unspecified convulsions (principal) | CPT/HCPCS: 95816 ==

== ENCOUNTER → 2020-04-27 08:39 | Outpatient (BNVA) | payer MEDICARE, MEDICAID, SELFPAY | PROVIDERS: Family Provider Family Medicine; PCP Family Medicine; Visit Provider Anesthesiology | DX: G89.29 Other chronic pain (principal); M54.16 Radiculopathy, lumbar region; M54.9 Dorsalgia, unspecified; G47.09 Other insomnia; Z79.891 Long term (current) use of opiate analgesic | CPT/HCPCS: 99214 ==

== ENCOUNTER → 2020-05-17 14:38 | Outpatient (BNVA) | payer MEDICARE, MEDICAID, SELFPAY | PROVIDERS: Family Provider Family Medicine; PCP Family Medicine; Visit Provider Specialist | DX: R41.0 Disorientation, unspecified (principal); F41.1 Generalized anxiety disorder; M54.16 Radiculopathy, lumbar region; Z87.891 Personal history of nicotine dependence | CPT/HCPCS: 99204 ==

== ENCOUNTER → 2020-05-19 08:02 | Outpatient (BNVA) | payer MEDICARE, MEDICAID, SELFPAY | PROVIDERS: Family Provider Family Medicine; PCP Family Medicine; Visit Provider Nurse Practitioner Psychiatric/Mental Health | DX: F33.2 Major depressive disorder, recurrent severe without psychotic features (principal); F41.1 Generalized anxiety disorder; F43.12 Post-traumatic stress disorder, chronic; Z63.4 Disappearance and death of family member | CPT/HCPCS: 99214 ==

== ENCOUNTER → 2020-06-15 14:24 | Outpatient (BNVA) | payer MEDICARE, MEDICAID, SELFPAY | PROVIDERS: Family Provider Family Medicine; PCP Family Medicine; Visit Provider Anesthesiology | DX: G89.29 Other chronic pain (principal); M54.16 Radiculopathy, lumbar region; G47.09 Other insomnia; M54.9 Dorsalgia, unspecified; Z79.891 Long term (current) use of opiate analgesic | CPT/HCPCS: 99213; 99214 ==

== ENCOUNTER 2020-06-18 14:50 | Emergency (ER) | payer MEDICARE, MEDICAID, SELFPAY ==
[2020-06-18] VITALS (8 sets, daily range): BP systolic 99–123; BP diastolic 65–79; PULSE 88–111; RESP 15–30; TEMP 36.4; O2SAT 91–97; BMI 29.6
--- NOTE | 2020-06-18 15:00 | ED_ITS ---
Documented by User: CHERYLE Ann 06/18/20 17:43 HPI - SOB/Dyspnea General: Chief Complaint: Shortness of Breath/Dyspnea Stated Complaint: SOB Time Seen by Provider: 06/18/20 15:00 [facility] ED PFSH: Medical History (Updated 06/18/20 @ 17:40 by CHERYLE Ann) Acute exacerbation of CHF (congestive heart failure) Asthma -severe persistent, started xolair 02/04/2020 -follow up with Dr. West CAD (coronary artery disease) (~12/2019) -Known history of CAD with recent stenting of LAD due to anterior wall STEMI in December -Follows up with Dr. Salcedo; f/u in [address] Bass Chronic post-traumatic stress disorder Chronic radicular lumbar pain COPD (chronic obstructive pulmonary disease) -no acute exacerbation -does not appear to be oxygen dependent at baseline -recently restarted smoking, 1/2 PPD Essential (primary) hypertension -VSS; continue to monitor -continue oral antihypertensives Generalized anxiety disorder GERD (gastroesophageal reflux disease) -on PPI Herniated disc Lesion of ulnar nerve, bilateral Major depressive disorder, 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 New onset of congestive heart failure -Could be secondary to recent STEMI requiring intervention with stenting of LAD last month -Echo: EF=57%, normal systolic and diastolic function, no RWMA, trace [place], trace [place] -has been on IV diuresis with Lasix; switched to oral lasix -Continue to monitor electrolytes and renal function -Daily weights, monitor ins and outs -BNP elevated at 948 -Chest x-ray reported as unremarkable -Close monitoring of respiratory status, supplemental oxygen as needed Nicotine dependence, cigarettes, with other nicotine-induced disorders Normocytic anemia -Seems to have intermittent normocytic anemia with a baseline hemoglobin of about 10-11, intermittently normal -Has been on dual antiplatelet therapy given recent stenting -Continue to monitor H&H closely; stable so far -iron and ferritin low; start on iron replacement KRISTOFER on CPAP Sleep apnea, unspecified Surgical History H/O bilateral oophorectomy H/O skin graft History of carpal tunnel release History of cholecystectomy Presence of stent in LAD coronary artery (01/23/20) S/P section Family History Father Myocardial infarct, Onset Age: 45 Brother Myocardial infarct, Onset Age: 53 Other CAD (coronary artery disease) Social History Smoking and tobacco status: former smoker Quit status (tobacco): has quit using tobacco Year quit tobacco: 2020 - 1PPD x 30 Years Alcohol intake: current Alcohol intake frequency: holidays/special occasions only Lives independently: Yes Household members: family Marital status: Current occupational status: disabled History of recent travel: No Current gender identity: Female Course Vital Signs: Vital signs: Vital Signs Temperature 97.6 F 06/18/20 14:55 Pulse Rate 111 H 06/18/20 18:02 Respiratory Rate 19 H 06/18/20 18:02 Blood Pressure 103/79 06/18/20 18:02 Pulse Oximetry 94 06/18/20 18:02 MDM - SOB/Dyspnea MDM Narrative: Medical decision making narrative: Patient did well with breathing treatments and steroids. Lungs clear to breathing better sats maintaining on 2 L 9598%. Patient has follow-up Dr. Krishnan avoid smoke at home take medicine as directed follow-up here if worsening symptoms. Lab Data: Labs: Lab Results 06/18/20 06/18/20 06/18/20 Range/Units 15:22 15:22 15:55 WBC 7.9 (4.0-10.0) 10^3/ uL RBC 4.72 (4.1-5.3) 10^6/u L Hgb 11.9 (11.5-15.3) g/dL Hct 39.8 (37.0-47.0) % MCV 84.3 (81-99) fL MCH 25.2 L (28.0-34.0) pg MCHC 29.9 L (30.0-36.0) g/dL RDW 15.3 H (12.1-15.1) % Plt Count 552 H (130-400) 10^3/c mm MPV 10.6 H (7.4-10.4) fL Neut % (Auto) 72.2 % Lymph % (Auto) 22.3 % Beauregard % (Auto) 3.4 % Eos % (Auto) 0.9 % Baso % (Auto) 0.8 % Neut # (Auto) 5.67 (1.8-7.7) 10^3/u L Lymph # (Auto) 1.8 (0.8-4.8) 10^3/u L Beauregard # (Auto) 0.3 (0.2-0.9) 10^3/u L Eos # (Auto) 0.1 (0.0-0.8) 10^3/u L Baso # (Auto) 0.1 (0.0-0.1) 10^3/u L Nucleated RBC % (a uto) 0 % Nucleated RBCs # 0.0 /100WBC Sodium 137 (136-145) mmol/L Potassium 3.6 (3.5-5.1) mmol/L Chloride 100 (98-107) mmol/L Carbon Dioxide 26 (22-29) mmol/L Anion Gap 14.6 (5-19) BUN 6 (6-20) mg/dL Creatinine 0.6 (0.5-0.9) mg/dL GFR Calculation 104.2 (90-130) mL/min Glucose 91 (65-115) mg/dL Calculated Osmolal ity 281 L (285-295) mOsm/k g Calcium 9.3 (8.5-10.5) mg/dL Total Bilirubin 0.2 (0.15-1.2) mg/dL AST 9 (0-32) U/L ALT 9 (0-33) U/L Alkaline Phosphata se 183 H (35-105) IU/L C-Reactive Protein 3.9 (0.0-4.9) mg/L Total Protein 7.3 (6.6-8.7) g/dL Albumin 4.3 (3.5-5.2) g/dL Globulin 3.0 (1.3-4.6) g/dL Influenza Type A A g Negative (Negative) Influenza Type B A g Negative (Negative) SARS-CoV-2 Ag (Rap id) (Negative) 06/18/20 Range/Units 15:55 WBC (4.0-10.0) 10^3/ uL RBC (4.1-5.3) 10^6/u L Hgb (11.5-15.3) g/dL Hct (37.0-47.0) % MCV (81-99) fL MCH (28.0-34.0) pg MCHC (30.0-36.0) g/dL RDW (12.1-15.1) % Plt Count (130-400) 10^3/c mm MPV (7.4-10.4) fL Neut % (Auto) % Lymph % (Auto) % Beauregard % (Auto) % Eos % (Auto) % Baso % (Auto) % Neut # (Auto) (1.8-7.7) 10^3/u L Lymph # (Auto) (0.8-4.8) 10^3/u L Beauregard # (Auto) (0.2-0.9) 10^3/u L Eos # (Auto) (0.0-0.8) 10^3/u L Baso # (Auto) (0.0-0.1) 10^3/u L Nucleated RBC % (a uto) % Nucleated RBCs # /100WBC Sodium (136-145) mmol/L Potassium (3.5-5.1) mmol/L Chloride (98-107) mmol/L Carbon Dioxide (22-29) mmol/L Anion Gap (5-19) BUN (6-20) mg/dL Creatinine (0.5-0.9) mg/dL GFR Calculation (90-130) mL/min Glucose (65-115) mg/dL Calculated Osmolal ity (285-295) mOsm/k g Calcium (8.5-10.5) mg/dL Total Bilirubin (0.15-1.2) mg/dL AST (0-32) U/L ALT (0-33) U/L Alkaline Phosphata se (35-105) IU/L C-Reactive Protein (0.0-4.9) mg/L Total Protein (6.6-8.7) g/dL Albumin (3.5-5.2) g/dL Globulin (1.3-4.6) g/dL Influenza Type A A g (Negative) Influenza Type B A g (Negative) SARS-CoV-2 Ag (Rap id) Negative (Negative) Discharge Plan Discharge Patient Disposition: Home Clinical Impression: Acute exacerbation of chronic obstructive airways disease Condition: Stable Prescriptions: New Zithromax Z-Guille 250 mg tablet See Rx Instructions .ROUTE .COMPLEX Qty: 6 RF: 0 Medrol (Guille) 4 mg tablets,dose pack See Rx Instructions .ROUTE .COMPLEX Qty: 21 RF: 0 No Action albuterol sulfate [ProAir HFA] 90 mcg/actuation HFA aerosol inhaler 2 puff INHALATION Q6H PRN (Reason: Shortness Of Breath Or Wheezing) RF: 0 albuterol sulfate 2.5 mg /3 mL (0.083 %) solution for nebulization 2.5 mg INHALATION QID@07,12,16,20 RF: 0 prednisone 5 mg tablet 5 mg PO .COMPLEX Qty: 30 RF: 3 omalizumab 150 mg recon soln 300 mg SUBCUT .[id number] Qty: 4 RF: 3 nitroglycerin 0.4 mg tablet, sublingual 0.4 mg SUBLINGUAL Q5M PRN (Reason: chest pain) Qty: 25 RF: 6 codeine-guaifenesin 10-200 mg/5 mL liquid 5 ml PO Q6H PRN (Reason: cough) 10 Days Qty: 200 RF: 0 methadone 10 mg tablet 10 mg PO Q6H 30 Days Qty: 120 RF: 0 oxycodone-acetaminophen [Percocet] 10-325 mg tablet 1 tab PO TID PRN (Reason: pain) 30 Days Qty: 90 RF: 0 epinephrine [EpiPen Jr 2-Guille] 0.15 mg/0.3 mL auto-injector 0.15 mg IM Q30M PRN (Reason: anaphylaxis) Qty: 2 RF: 1 furosemide 40 mg tablet See Rx Instructions .ROUTE .COMPLEX Qty: 50 RF: 3 potassium chloride 20 mEq tablet extended release See Rx Instructions .ROUTE .COMPLEX Qty: 90 RF: 2 revefenacin [Yupelri] 175 mcg/3 mL solution for nebulization See Rx Instructions .ROUTE .COMPLEX Qty: 30 RF: 11 budesonide 0.5 mg/2 mL suspension for nebulization See Rx Instructions .ROUTE .COMPLEX Qty: 60 RF: 11 formoterol fumarate [Perforomist] 20 mcg/2 mL solution for nebulization See Rx Instructions .ROUTE .COMPLEX Qty: 60 RF: 11 atorvastatin 40 mg tablet 40 mg PO BEDTIME@2200 RF: 0 clopidogrel 75 mg tablet 75 mg PO DAILY@0730 RF: 0 aspirin 81 mg tablet,delayed release (DR/EC) 81 mg PO DAILY@0730 RF: 0 verapamil 180 mg capsule,ext rel. pellets 24 hr 180 mg PO DAILY@699 RF: 0 trazodone 150 mg tablet 150 mg PO BEDTIME PRN (Reason: sleep) RF: 0 ropinirole 0.5 mg tablet 0.5 mg PO BID@699,2199 RF: 0 omeprazole 20 mg capsule,delayed release(DR/EC) 20 mg PO BID@ RF: 0 Singulair 10 mg tablet 10 mg PO DAILY@729 RF: 0 metoprolol succinate 25 mg tablet extended release 24 hr 25 mg PO DAILY@729 RF: 0 azelastine 137 mcg (0.1 %) aerosol,spray 1 spray INTRANASAL BID@ RF: 0 Topamax 100 mg tablet 100 mg PO BID@ RF: 0 Flonase Allergy Relief 50 mcg/actuation spray,suspension 1 spray INTRANASAL BID@ RF: 0 amitriptyline 100 mg tablet 100 mg PO BEDTIME@2199 RF: 0 lisinopril 2.5 mg tablet 2.5 mg PO DAILY@729 RF: 0 naproxen 500 mg tablet 500 mg PO BID PRN (Reason: Pain) RF: 0 Cymbalta 30 mg capsule,delayed release(DR/EC) 30 mg PO DAILY@729 RF: 0 Cymbalta 60 mg capsule,delayed release(DR/EC) 60 mg PO DAILY@729 RF: 0 Discharge Orders: Discharge ED (Routine); Ordered 06/18/20 Ordered By: Garcia Lewis Referrals: Lauri Krishnan MD [Primary Care Provider] - Discharge Diet: Usual diet Discharge Activity: Increase activity as tolerated Patient Instructions: Chronic Obstructive Pulmonary Disease (ED) Activity Restrictions/Additional Instructions: Follow-up with medical provider as directed. Take medications as prescribed. Return to the ER or your medical provider if condition worsens. Please read and understand discharge instructions. If any questions ask please. Wear home O2. Avoid smoke. Coding Level of Care Code ED Operations Support Manager for Chg Fwd Documented by User: CHERYLE Morrison 06/19/20 07:41 HPI - SOB/Dyspnea General: Chief Complaint: Shortness of Breath/Dyspnea Stated Complaint: SOB Time Seen by Provider: 06/18/20 15:00 Source: patient Mode of arrival: ambulatory Limitations: no limitations History of Present Illness: HPI Narrative: 54-year-old female comes in with shortness of breath for the last 2 days. Patient has a history of COPD and has noticed over the past couple days worsening difficulty breathing. Patient denies any fever chills or nausea or vomiting. Review of Systems General: Reports: 10 or more systems reviewed and unremarkable except in HPI and below Resp: Reports: dyspnea PFSH ED PFSH: Medical History (Updated 06/18/20 @ 17:40 by CHERYLE Ann) Acute exacerbation of CHF (congestive heart failure) Asthma -severe persistent, started xolair 02/04/2020 -follow up with Dr. West CAD (coronary artery disease) (~12/2019) -Known history of CAD with recent stenting of LAD due to anterior wall STEMI in December -Follows up with Dr. Salcedo; f/u in [address] Bass Chronic post-traumatic stress disorder Chronic radicular lumbar pain COPD (chronic obstructive pulmonary disease) -no acute exacerbation -does not appear to be oxygen dependent at baseline -recently restarted smoking, 1/2 PPD Essential (primary) hypertension -VSS; continue to monitor -continue oral antihypertensives Generalized anxiety disorder GERD (gastroesophageal reflux disease) -on PPI Herniated disc Lesion of ulnar nerve, bilateral Major depressive disorder, 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 New onset of congestive heart failure -Could be secondary to recent STEMI requiring intervention with stenting of LAD last month -Echo: EF=57%, normal systolic and diastolic function, no RWMA, trace [place], trace [place] -has been on IV diuresis with Lasix; switched to oral lasix -Continue to monitor electrolytes and renal function -Daily weights, monitor ins and outs -BNP elevated at 948 -Chest x-ray reported as unremarkable -Close monitoring of respiratory status, supplemental oxygen as needed Nicotine dependence, cigarettes, with other nicotine-induced disorders Normocytic anemia -Seems to have intermittent normocytic anemia with a baseline hemoglobin of about 10-11, intermittently normal -Has been on dual antiplatelet therapy given recent stenting -Continue to monitor H&H closely; stable so far -iron and ferritin low; start on iron replacement KRISTOFER on CPAP Sleep apnea, unspecified Surgical History H/O bilateral oophorectomy H/O skin graft History of carpal tunnel release History of cholecystectomy Presence of stent in LAD coronary artery (01/23/20) S/P section Family History Father Myocardial infarct, Onset Age: 45 Brother Myocardial infarct, Onset Age: 53 Other CAD (coronary artery disease) Social History Smoking and tobacco status: former smoker Quit status (tobacco): has quit using tobacco Year quit tobacco: 2020 - 1PPD x 30 Years Alcohol intake: current Alcohol intake frequency: holidays/special occasions only Lives independently: Yes Household members: family Marital status: Current occupational status: disabled History of recent travel: No Current gender identity: Female Physical Exam Const: COMMON NORMALS: no acute distress and patient oriented x3 GENERAL APPEARANCE: cooperative HENMT: COMMON NORMALS: normocephalic, TM's normal bilaterally and Normal external nose present HEAD & SCALP: normal to inspection and normocephalic NOSE: Normal external nose present TYMPANIC MEMBRANE: TM's normal bilaterally MOUTH: Normal oral and palatal mucosa present THROAT: posterior oropharynx normal Eye: GENERAL EYE: appearance normal, both eyes and all related structures Neck/C-Spine: COMMON NORMALS: full ROM Lymph: LYMPHATIC: no lymphadenopathy noted Chest: COMMONS NORMALS: normal inspection of the chest Resp: COMMON NORMALS: normal respiratory effort EFFORT & INSPECTION: Yes able to speak in complete sentences and Yes audible wheezes Cardio: COMMON NORMALS: regular rate and regular rhythm RATE: regular rate RHYTHM: regular rhythm GI: COMMON NORMALS: non-tender Back/Pelvis: COMMON NORMALS: thoracic and lumbar spine normal to inspection Extremity: COMMON NORMALS: normal to inspection Neuro: COMMON NORMALS: patient oriented x3 and moves all extremities Psych: COMMON NORMALS: mental status grossly normal and cooperative Skin: COMMON NORMALS: no rashes or lesions noted GENERAL SKIN EXAM: no rashes or lesions noted Course Vital Signs: Vital signs: Vital Signs Temperature 97.6 F 06/18/20 14:55 Pulse Rate 111 H 06/18/20 18:02 Respiratory Rate 19 H 06/18/20 18:02 Blood Pressure 103/79 06/18/20 18:02 Pulse Oximetry 94 06/18/20 18:02 MDM - SOB/Dyspnea Lab Data: Labs: Lab Results 06/18/20 06/18/20 06/18/20 Range/Units 15:22 15:22 15:55 WBC 7.9 (4.0-10.0) 10^3/ uL RBC 4.72 (4.1-5.3) 10^6/u L Hgb 11.9 (11.5-15.3) g/dL Hct 39.8 (37.0-47.0) % MCV 84.3 (81-99) fL MCH 25.2 L (28.0-34.0) pg MCHC 29.9 L (30.0-36.0) g/dL RDW 15.3 H (12.1-15.1) % Plt Count 552 H (130-400) 10^3/c mm MPV 10.6 H (7.4-10.4) fL Neut % (Auto) 72.2 % Lymph % (Auto) 22.3 % Beauregard % (Auto) 3.4 % Eos % (Auto) 0.9 % Baso % (Auto) 0.8 % Neut # (Auto) 5.67 (1.8-7.7) 10^3/u L Lymph # (Auto) 1.8 (0.8-4.8) 10^3/u L Beauregard # (Auto) 0.3 (0.2-0.9) 10^3/u L Eos # (Auto) 0.1 (0.0-0.8) 10^3/u L Baso # (Auto) 0.1 (0.0-0.1) 10^3/u L Nucleated RBC % (a uto) 0 % Nucleated RBCs # 0.0 /100WBC Sodium 137 (136-145) mmol/L Potassium 3.6 (3.5-5.1) mmol/L Chloride 100 (98-107) mmol/L Carbon Dioxide 26 (22-29) mmol/L Anion Gap 14.6 (5-19) BUN 6 (6-20) mg/dL Creatinine 0.6 (0.5-0.9) mg/dL GFR Calculation 104.2 (90-130) mL/min Glucose 91 (65-115) mg/dL Calculated Osmolal ity 281 L (285-295) mOsm/k g Calcium 9.3 (8.5-10.5) mg/dL Total Bilirubin 0.2 (0.15-1.2) mg/dL AST 9 (0-32) U/L ALT 9 (0-33) U/L Alkaline Phosphata se 183 H (35-105) IU/L C-Reactive Protein 3.9 (0.0-4.9) mg/L Total Protein 7.3 (6.6-8.7) g/dL Albumin 4.3 (3.5-5.2) g/dL Globulin 3.0 (1.3-4.6) g/dL Influenza Type A A g Negative (Negative) Influenza Type B A g Negative (Negative) SARS-CoV-2 Ag (Rap id) (Negative) 06/18/20 Range/Units 15:55 WBC (4.0-10.0) 10^3/ uL RBC (4.1-5.3) 10^6/u L Hgb (11.5-15.3) g/dL Hct (37.0-47.0) % MCV (81-99) fL MCH (28.0-34.0) pg MCHC (30.0-36.0) g/dL RDW (12.1-15.1) % Plt Count (130-400) 10^3/c mm MPV (7.4-10.4) fL Neut % (Auto) % Lymph % (Auto) % Beauregard % (Auto) % Eos % (Auto) % Baso % (Auto) % Neut # (Auto) (1.8-7.7) 10^3/u L Lymph # (Auto) (0.8-4.8) 10^3/u L Beauregard # (Auto) (0.2-0.9) 10^3/u L Eos # (Auto) (0.0-0.8) 10^3/u L Baso # (Auto) (0.0-0.1) 10^3/u L Nucleated RBC % (a uto) % Nucleated RBCs # /100WBC Sodium (136-145) mmol/L Potassium (3.5-5.1) mmol/L Chloride (98-107) mmol/L Carbon Dioxide (22-29) mmol/L Anion Gap (5-19) BUN (6-20) mg/dL Creatinine (0.5-0.9) mg/dL GFR Calculation (90-130) mL/min Glucose (65-115) mg/dL Calculated Osmolal ity (285-295) mOsm/k g Calcium (8.5-10.5) mg/dL Total Bilirubin (0.15-1.2) mg/dL AST (0-32) U/L ALT (0-33) U/L Alkaline Phosphata se (35-105) IU/L C-Reactive Protein (0.0-4.9) mg/L Total Protein (6.6-8.7) g/dL Albumin (3.5-5.2) g/dL Globulin (1.3-4.6) g/dL Influenza Type A A g (Negative) Influenza Type B A g (Negative) SARS-CoV-2 Ag (Rap id) Negative (Negative) Discharge Plan Discharge Patient Disposition: Home Clinical Impression: Acute exacerbation of chronic obstructive airways disease Condition: Stable Prescriptions: New Zithromax Z-Guille 250 mg tablet See Rx Instructions .ROUTE .COMPLEX Qty: 6 RF: 0 Medrol (Guille) 4 mg tablets,dose pack See Rx Instructions .ROUTE .COMPLEX Qty: 21 RF: 0 No Action albuterol sulfate [ProAir HFA] 90 mcg/actuation HFA aerosol inhaler 2 puff INHALATION Q6H PRN (Reason: Shortness Of Breath Or Wheezing) RF: 0 albuterol sulfate 2.5 mg /3 mL (0.083 %) solution for nebulization 2.5 mg INHALATION QID@07,12,16,20 RF: 0 prednisone 5 mg tablet 5 mg PO .COMPLEX Qty: 30 RF: 3 omalizumab 150 mg recon soln 300 mg SUBCUT .[id number] Qty: 4 RF: 3 nitroglycerin 0.4 mg tablet, sublingual 0.4 mg SUBLINGUAL Q5M PRN (Reason: chest pain) Qty: 25 RF: 6 codeine-guaifenesin 10-200 mg/5 mL liquid 5 ml PO Q6H PRN (Reason: cough) 10 Days Qty: 200 RF: 0 methadone 10 mg tablet 10 mg PO Q6H 30 Days Qty: 120 RF: 0 oxycodone-acetaminophen [Percocet] 10-325 mg tablet 1 tab PO TID PRN (Reason: pain) 30 Days Qty: 90 RF: 0 epinephrine [EpiPen Jr 2-Guille] 0.15 mg/0.3 mL auto-injector 0.15 mg IM Q30M PRN (Reason: anaphylaxis) Qty: 2 RF: 1 furosemide 40 mg tablet See Rx Instructions .ROUTE .COMPLEX Qty: 50 RF: 3 potassium chloride 20 mEq tablet extended release See Rx Instructions .ROUTE .COMPLEX Qty: 90 RF: 2 revefenacin [Yupelri] 175 mcg/3 mL solution for nebulization See Rx Instructions .ROUTE .COMPLEX Qty: 30 RF: 11 budesonide 0.5 mg/2 mL suspension for nebulization See Rx Instructions .ROUTE .COMPLEX Qty: 60 RF: 11 formoterol fumarate [Perforomist] 20 mcg/2 mL solution for nebulization See Rx Instructions .ROUTE .COMPLEX Qty: 60 RF: 11 atorvastatin 40 mg tablet 40 mg PO BEDTIME@2199 RF: 0 clopidogrel 75 mg tablet 75 mg PO DAILY@729 RF: 0 aspirin 81 mg tablet,delayed release (DR/EC) 81 mg PO DAILY@729 RF: 0 verapamil 180 mg capsule,ext rel. pellets 24 hr 180 mg PO DAILY@699 RF: 0 trazodone 150 mg tablet 150 mg PO BEDTIME PRN (Reason: sleep) RF: 0 ropinirole 0.5 mg tablet 0.5 mg PO BID@699,2199 RF: 0 omeprazole 20 mg capsule,delayed release(DR/EC) 20 mg PO BID@699,2199 RF: 0 Singulair 10 mg tablet 10 mg PO DAILY@729 RF: 0 metoprolol succinate 25 mg tablet extended release 24 hr 25 mg PO DAILY@729 RF: 0 azelastine 137 mcg (0.1 %) aerosol,spray 1 spray INTRANASAL BID@699,2199 RF: 0 Topamax 100 mg tablet 100 mg PO BID@699,2200 RF: 0 Flonase Allergy Relief 50 mcg/actuation spray,suspension 1 spray INTRANASAL BID@ RF: 0 amitriptyline 100 mg tablet 100 mg PO BEDTIME@2199 RF: 0 lisinopril 2.5 mg tablet 2.5 mg PO DAILY@729 RF: 0 naproxen 500 mg tablet 500 mg PO BID PRN (Reason: Pain) RF: 0 Cymbalta 30 mg capsule,delayed release(DR/EC) 30 mg PO DAILY@729 RF: 0 Cymbalta 60 mg capsule,delayed release(DR/EC) 60 mg PO DAILY@729 RF: 0 Discharge Orders: Discharge ED (Routine); Ordered 06/18/20 Ordered By: Garcia Lewis Referrals: Lauri Krishnan MD [Primary Care Provider] - Discharge Diet: Usual diet Discharge Activity: Increase activity as tolerated Patient Instructions: Chronic Obstructive Pulmonary Disease (ED) Activity Restrictions/Additional Instructions: Follow-up with medical provider as directed. Take medications as prescribed. Return to the ER or your medical provider if condition worsens. Please read and understand discharge instructions. If any questions ask please. Wear home O2. Avoid smoke. Coding Level of Care Code ED Operations Support Manager for Gracie Laguna
--- NOTE | 2020-06-18 15:07 | XRR_ITS ---
PROCEDURE INFORMATION: Exam: XR Chest, 1 View Exam date and time: 06/18/2020 3:20 PM Age: 54 years old Clinical indication: Shortness of breath; Additional info: Resp diff TECHNIQUE: Imaging protocol: XR of the chest Views: 1 view. COMPARISON: CR XR chest 1V portable [id number] 02/10/2020 12:00 AM FINDINGS: Lungs: The lungs are mildly hyperinflated, consistent with COPD. No consolidative pulmonary infiltrates are noted. 5 mm calcified granuloma right lung base. Pleural space: No pleural effusion. No pneumothorax. Heart/Mediastinum: No cardiomegaly. Bones/joints: Unremarkable. XR/XR chest 1V portable [id number] IMPRESSION: 1. The lungs are mildly hyperinflated, consistent with COPD. 2. No acute cardiopulmonary disease demonstrated. 3. There is no interval change from the prior examination.
[2020-06-18] MEDS: albuterol 8 gm MDI 4 PUFF INHALATION (15:32)
[2020-06-18 15:33] LABS: Basophils # 0.1 10^3/uL (0.0-0.1); Basophils % 0.8 %; Eosinophils # 0.1 10^3/uL (0.0-0.8); Eosinophils % 0.9 %; Hematocrit 39.8 % (37.0-47.0); Hemoglobin 11.9 g/dL (11.5-15.3); Lymphocytes # 1.8 10^3/uL (0.8-4.8); Lymphocytes % 22.3 %; Mean Corpuscular HGB Conc 29.9 g/dL (30.0-36.0); Mean Corpuscular Hemoglobin 25.2 pg (28.0-34.0); Mean Corpuscular Volume 84.3 fL (81-99); Mean Platelet Volume 10.6 fL (7.4-10.4); Monocytes # 0.3 10^3/uL (0.2-0.9); Monocytes % 3.4 %; Neutrophils # 5.67 10^3/uL (1.8-7.7); Neutrophils % 72.2 %; Nucleated Red Blood Cells % 0 %; Platelet Count 552 10^3/cmm (130-400); Red Blood Count 4.72 10^6/uL (4.1-5.3); Red Cell Distribution Width 15.3 % (12.1-15.1); White Blood Count 7.9 10^3/uL (4.0-10.0)
[2020-06-18 15:56] LABS: Alanine Aminotransferase 9 U/L (0-33); Albumin Level 4.3 g/dL (3.5-5.2); Alkaline Phosphatase 183 IU/L (35-105); Anion Gap 14.6 (5-19); Aspartate Amino Transferase 9 U/L (0-32); Blood Urea Nitrogen 6 mg/dL (6-20); C Reactive Protein 3.9 mg/L (0.0-4.9); Calcium 9.3 mg/dL (8.5-10.5); Carbon Dioxide 26 mmol/L (22-29); Chloride 100 mmol/L (98-107); Glomerular Filtration Rate 104.2 mL/min (90-130); Glucose 91 mg/dL (65-115); Osmolality Calculated 281 mOsm/kg (285-295); Potassium 3.6 mmol/L (3.5-5.1); Sodium 137 mmol/L (136-145); Total Bilirubin 0.2 mg/dL (0.15-1.2); Total Protein 7.3 g/dL (6.6-8.7)
[2020-06-18 17:02] LABS: Influenza A by IFA Negative (Negative); Influenza B by IFA Negative (Negative); SARS Covid-2 Antigen Negative (Negative)
[2020-06-18] MEDS: ipratropium-albuterol 3 mL Neb INHALATION (17:16)
== END 2020-06-18 18:04 | disposition home or self-care (01) ==
PROVIDERS: Nurse Practitioner Family; Emergency Provider Nurse Practitioner Family; PCP Family Medicine
DX: J44.1 Chronic obstructive pulmonary disease with (acute) exacerbation (principal); Z79.82 Long term (current) use of aspirin; Z79.02 Long term (current) use of antithrombotics/antiplatelets; I11.0 Hypertensive heart disease with heart failure; I50.9 Heart failure, unspecified; I25.10 Atherosclerotic heart disease of native coronary artery without angina pectoris; Z87.891 Personal history of nicotine dependence
CPT/HCPCS: 12345; 71045; 80053; 85025; 86140; 87426; 87804; 94640; 96374; 99283; J2930; J3535

== ENCOUNTER → 2020-07-26 13:35 | Outpatient (BNVA) | payer MEDICARE, MEDICAID, SELFPAY | PROVIDERS: PCP Family Medicine; Visit Provider Nurse Practitioner | DX: G89.4 Chronic pain syndrome (principal); M54.16 Radiculopathy, lumbar region; G47.00 Insomnia, unspecified; M54.9 Dorsalgia, unspecified; J41.0 Simple chronic bronchitis; Z79.891 Long term (current) use of opiate analgesic; Z71.6 Tobacco abuse counseling; Z87.891 Personal history of nicotine dependence | CPT/HCPCS: 99213 ==

== ENCOUNTER → 2020-07-27 08:32 | Outpatient (BNVA) | payer MEDICARE, MEDICAID, SELFPAY | PROVIDERS: PCP Family Medicine; Visit Provider Nurse Practitioner Psychiatric/Mental Health | DX: F33.2 Major depressive disorder, recurrent severe without psychotic features (principal); F41.1 Generalized anxiety disorder; F43.12 Post-traumatic stress disorder, chronic; Z63.4 Disappearance and death of family member; F17.210 Nicotine dependence, cigarettes, uncomplicated | CPT/HCPCS: 99214 ==

== ENCOUNTER → 2020-08-03 09:05 | Outpatient (BNVA) | payer MEDICARE, MEDICAID, SELFPAY | PROVIDERS: PCP Family Medicine; Visit Provider Social Worker | DX: F33.2 Major depressive disorder, recurrent severe without psychotic features (principal); F41.1 Generalized anxiety disorder; F43.12 Post-traumatic stress disorder, chronic; Z63.4 Disappearance and death of family member | CPT/HCPCS: 90834 ==

== ENCOUNTER → 2020-08-10 08:07 | Outpatient (BNVA) | payer MEDICARE, MEDICAID, SELFPAY | PROVIDERS: PCP Family Medicine; Visit Provider Social Worker | DX: F41.1 Generalized anxiety disorder (principal); F33.2 Major depressive disorder, recurrent severe without psychotic features; Z63.4 Disappearance and death of family member; F43.12 Post-traumatic stress disorder, chronic | CPT/HCPCS: 90834 ==

== ENCOUNTER → 2020-08-17 07:25 | Outpatient (BNVA) | payer MEDICARE, MEDICAID, SELFPAY | PROVIDERS: PCP Family Medicine; Visit Provider Nurse Practitioner Psychiatric/Mental Health | DX: Z63.4 Disappearance and death of family member (principal); F33.2 Major depressive disorder, recurrent severe without psychotic features; F41.1 Generalized anxiety disorder; F43.12 Post-traumatic stress disorder, chronic | CPT/HCPCS: 99214 ==

== ENCOUNTER → 2020-08-24 08:37 | Outpatient (BNVA) | payer MEDICARE, MEDICAID, SELFPAY | PROVIDERS: PCP Family Medicine; Visit Provider Social Worker | DX: F41.1 Generalized anxiety disorder (principal); F33.2 Major depressive disorder, recurrent severe without psychotic features; Z63.4 Disappearance and death of family member; F43.12 Post-traumatic stress disorder, chronic | CPT/HCPCS: 90834 ==

== ENCOUNTER → 2020-09-07 08:48 | Outpatient (BNVA) | payer MEDICARE, MEDICAID, SELFPAY | PROVIDERS: PCP Family Medicine; Visit Provider Social Worker | DX: F33.2 Major depressive disorder, recurrent severe without psychotic features (principal); F41.1 Generalized anxiety disorder; F43.12 Post-traumatic stress disorder, chronic; Z63.4 Disappearance and death of family member | CPT/HCPCS: 90834 ==

== ENCOUNTER → 2020-09-21 10:37 | Outpatient (BNVA) | payer MEDICARE, MEDICAID, SELFPAY | PROVIDERS: PCP Family Medicine; Visit Provider Social Worker | DX: Z63.4 Disappearance and death of family member (principal); F43.12 Post-traumatic stress disorder, chronic; F41.1 Generalized anxiety disorder; F33.2 Major depressive disorder, recurrent severe without psychotic features; G89.29 Other chronic pain; M54.16 Radiculopathy, lumbar region; G47.00 Insomnia, unspecified; M54.9 Dorsalgia, unspecified; Z79.891 Long term (current) use of opiate analgesic | CPT/HCPCS: 90834; 99213 ==

== ENCOUNTER 2020-09-26 08:04 | Outpatient (CLI) | payer MEDICARE, MEDICAID, SELFPAY ==
--- NOTE | 2020-09-26 08:06 | CT_ITS ---
WS: [id number] LDCT LUNG CANCER SCREENING HISTORY: HX OF TOBACCO USE TECHNIQUE: Axial imaging performed from the apices to 1 cm below the costophrenic angles. Coronal and sagittal reformats are submitted with axial MIP series. All CT scans at [facility] use at least one of these dose optimization techniques: automated exposure control; mA and/or kV adjustment per patient size (includes targeted exams where dose is matched to clinical indication); or iterativ e reconstruction. DLP: 59.73 mGy.cm DIvol: 1.58 mGy COMPARISON: CT chest 07/16/2019. Diagnostic quality: Satisfactory Lung Nodules: There are no noncalcified pulmonary nodules. No endobronchial lesions or subsolid opaci fications. Lungs: Hyperexpanded lungs with numerous bilateral granulomata. There is additional peripheral inters titial thickening which is reticular in appearance greatest in the RIGHT upper lobe. There is mild th ickening along the fissures. Heart: Normal size heart. Stent or calcification in the LEFT anterior descending. No pericardial effu dhaval. Other findings: Pulmonary artery slightly enlarged. CT/CT lung screening [id number] IMPRESSION: LUNG-RADS: 1-Negative FOLLOW UP: 12 Month: Continue annual screening with LDCT OTHER FINDINGS (S MODIFIER): None.
== END 2020-09-26 08:05 | disposition home or self-care (01) ==
LOC: CT 08:04
PROVIDERS: PCP Family Medicine; Visit Provider Internal Medicine Critical Care Medicine
DX: Z12.2 Encounter for screening for malignant neoplasm of respiratory organs (principal); Z87.891 Personal history of nicotine dependence
CPT/HCPCS: 71271

== ENCOUNTER → 2020-09-28 07:52 | Outpatient (BNVA) | payer MEDICARE, MEDICAID, SELFPAY | PROVIDERS: PCP Family Medicine; Visit Provider Nurse Practitioner Psychiatric/Mental Health | DX: F33.2 Major depressive disorder, recurrent severe without psychotic features (principal); F41.1 Generalized anxiety disorder; F43.12 Post-traumatic stress disorder, chronic; Z63.4 Disappearance and death of family member | CPT/HCPCS: 99214 ==

== ENCOUNTER → 2020-10-05 08:42 | Outpatient (BNVA) | payer MEDICARE, MEDICAID, SELFPAY | PROVIDERS: PCP Family Medicine; Visit Provider Social Worker | DX: Z63.4 Disappearance and death of family member (principal); F43.12 Post-traumatic stress disorder, chronic; F41.1 Generalized anxiety disorder; F33.2 Major depressive disorder, recurrent severe without psychotic features | CPT/HCPCS: 90834 ==

== ENCOUNTER → 2020-10-19 08:35 | Outpatient (BNVA) | payer MEDICARE, MEDICAID, SELFPAY | PROVIDERS: PCP Family Medicine; Visit Provider Social Worker | DX: F41.1 Generalized anxiety disorder (principal); F33.2 Major depressive disorder, recurrent severe without psychotic features | CPT/HCPCS: 90834 ==

== ENCOUNTER → 2020-10-25 09:50 | Outpatient (BNVA) | payer MEDICARE, MEDICAID, SELFPAY | PROVIDERS: PCP Family Medicine; Visit Provider Internal Medicine Cardiovascular Disease | DX: I11.0 Hypertensive heart disease with heart failure (principal); I25.119 Atherosclerotic heart disease of native coronary artery with unspecified angina pectoris; I50.32 Chronic diastolic (congestive) heart failure; E78.2 Mixed hyperlipidemia; J45.50 Severe persistent asthma, uncomplicated; G47.33 Obstructive sleep apnea (adult) (pediatric); Z99.89 Dependence on other enabling machines and devices; Z87.891 Personal history of nicotine dependence | CPT/HCPCS: 80053; 80061; 83721 ==

== ENCOUNTER → 2020-11-02 08:47 | Outpatient (BNVA) | payer MEDICARE, MEDICAID, SELFPAY | PROVIDERS: PCP Family Medicine; Visit Provider Social Worker | DX: F41.1 Generalized anxiety disorder (principal); F33.2 Major depressive disorder, recurrent severe without psychotic features | CPT/HCPCS: 90834 ==

== ENCOUNTER → 2020-11-09 08:07 | Outpatient (BNVA) | payer MEDICARE, MEDICAID, SELFPAY | PROVIDERS: PCP Family Medicine; Visit Provider Nurse Practitioner Psychiatric/Mental Health | DX: F33.2 Major depressive disorder, recurrent severe without psychotic features (principal); F41.1 Generalized anxiety disorder; F43.12 Post-traumatic stress disorder, chronic; F17.219 Nicotine dependence, cigarettes, with unspecified nicotine-induced disorders; Z63.4 Disappearance and death of family member | CPT/HCPCS: 99214 ==

== ENCOUNTER → 2020-11-14 08:47 | Outpatient (BNVA) | payer MEDICARE, MEDICAID, SELFPAY | PROVIDERS: PCP Family Medicine; Visit Provider Social Worker | DX: F41.1 Generalized anxiety disorder (principal); F33.2 Major depressive disorder, recurrent severe without psychotic features | CPT/HCPCS: 90834 ==

== ENCOUNTER → 2020-11-18 10:53 | Outpatient (BNVA) | payer MEDICARE, MEDICAID, SELFPAY | PROVIDERS: PCP Family Medicine; Visit Provider Nurse Practitioner | DX: G89.29 Other chronic pain (principal); M54.16 Radiculopathy, lumbar region; M54.9 Dorsalgia, unspecified; G47.00 Insomnia, unspecified; F17.210 Nicotine dependence, cigarettes, uncomplicated; Z79.891 Long term (current) use of opiate analgesic; Z71.6 Tobacco abuse counseling | CPT/HCPCS: 99214 ==

== ENCOUNTER 2020-11-24 13:59 | Outpatient (CLI) | payer MEDICARE, MEDICAID, SELFPAY ==
[2020-11-24 15:03] LABS: ABG PCO2 39.9 mmHg (35-45); ABG PH Result 7.42 (7.35-7.45); Alveolar-Arterial Oxygen Gradi 5.3 mmHg (5-10); Arterial Blood Gas Hematocrit 35.9 % (37-47); Base Excess ABG 1.1 mmol/L (-2.0-2.0); Blood Gas Allen Test Pos; Blood Gas Operator Identificat CAK; Blood Gas Sample Site Radial, right; Blood Gas Sample Type Arterial; HCO3 ABG 25.7 mmol/L (22-26); HGB O2 Sat 87.1 % (95-100); Ionized Calcium Level - ABG 1.2 mmol/L (1.1-1.4); Methemoglobin 0.9 % (0.4-1.5); Oxygen Device ROOM AIR; Oxygen Saturation ABG 92.5; PO2 ABG 59.2 mmHg (80.0-100.0); Potassium Level - ABG 3.6 mmol/L (3.5-5.0); Total Hemoglobin 11.7 g/dL (12-16)
== END 2020-11-24 14:00 | disposition home or self-care (01) ==
LOC: LAB 14:03
PROVIDERS: PCP Family Medicine; Visit Provider Internal Medicine Critical Care Medicine
DX: J96.12 Chronic respiratory failure with hypercapnia (principal)
CPT/HCPCS: 36600; 80051; 82330; 82805

== ENCOUNTER → 2020-12-14 09:37 | Outpatient (BNVA) | payer MEDICARE, MEDICAID, SELFPAY | PROVIDERS: PCP Family Medicine; Visit Provider Social Worker | DX: F41.1 Generalized anxiety disorder (principal); F33.2 Major depressive disorder, recurrent severe without psychotic features | CPT/HCPCS: 90834 ==

== ENCOUNTER → 2020-12-27 07:28 | Outpatient (BNVA) | payer MEDICARE, MEDICAID, SELFPAY | PROVIDERS: PCP Family Medicine; Visit Provider Nurse Practitioner Psychiatric/Mental Health | DX: F33.2 Major depressive disorder, recurrent severe without psychotic features (principal); F41.1 Generalized anxiety disorder; F17.219 Nicotine dependence, cigarettes, with unspecified nicotine-induced disorders; F43.12 Post-traumatic stress disorder, chronic; Z63.4 Disappearance and death of family member | CPT/HCPCS: 99214 ==

== ENCOUNTER → 2021-01-26 11:07 | Outpatient (BNVA) | payer MEDICARE, MEDICAID, SELFPAY | PROVIDERS: PCP Family Medicine; Visit Provider Nurse Practitioner | DX: G89.29 Other chronic pain (principal); M54.16 Radiculopathy, lumbar region; G47.00 Insomnia, unspecified; J41.0 Simple chronic bronchitis; Z79.891 Long term (current) use of opiate analgesic; Z87.891 Personal history of nicotine dependence | CPT/HCPCS: 99214 ==

== ENCOUNTER → 2021-02-14 07:48 | Outpatient (BNVA) | payer MEDICARE, MEDICAID, SELFPAY | PROVIDERS: PCP Family Medicine; Visit Provider Nurse Practitioner Psychiatric/Mental Health | DX: F33.2 Major depressive disorder, recurrent severe without psychotic features (principal); F41.1 Generalized anxiety disorder; F43.12 Post-traumatic stress disorder, chronic; F17.219 Nicotine dependence, cigarettes, with unspecified nicotine-induced disorders; Z63.4 Disappearance and death of family member | CPT/HCPCS: 99214 ==

== ENCOUNTER → 2021-03-16 10:18 | Outpatient (BNVA) | payer MEDICARE, MEDICAID, SELFPAY | PROVIDERS: PCP Family Medicine; Visit Provider Anesthesiology Pain Medicine | DX: G89.29 Other chronic pain (principal); M54.16 Radiculopathy, lumbar region; Z79.891 Long term (current) use of opiate analgesic | CPT/HCPCS: 62323; J1040; J3490 ==

== ENCOUNTER → 2021-03-23 09:33 | Outpatient (BNVA) | payer MEDICARE, MEDICAID, SELFPAY | PROVIDERS: PCP Family Medicine; Visit Provider Nurse Practitioner | DX: G89.29 Other chronic pain (principal); M54.16 Radiculopathy, lumbar region; J41.0 Simple chronic bronchitis; F17.210 Nicotine dependence, cigarettes, uncomplicated; Z79.891 Long term (current) use of opiate analgesic; Z71.6 Tobacco abuse counseling | CPT/HCPCS: 99214; 99215 ==

== ENCOUNTER 2021-04-10 15:32 | Outpatient (CLI) | payer MEDICARE, MEDICAID, SELFPAY ==
--- NOTE | 2021-04-10 16:00 | MR_ITS ---
WS: [id number] MRI LUMBAR SPINE NONCONTRAST TECHNIQUE: Sagittal T1, T2 and STIR imaging. Axial T1 and T2 imaging. CLINICAL INFORMATION: M54.16 - Radiculopathy, lumbar region COMPARISON: MRI September 02, 2008 FINDINGS: Mild lumbar curve. No acute compression. Mild disc bulging L3-L4 L4-L5 and L5-S1. L1-L2: Minimal annular bulging. Spinal canal and foramen are patent. L2-L3: Minimal annular bulging. Mild facet arthropathy. Spinal canal and foramen are patent. L3-L4: Mild annular bulging with a tiny shallow central protrusion. Impingement on the subarticular r ecess bilaterally and traversing L4 nerve roots. Mild central canal stenosis. Mild facet arthropathy. Foramen are patent. L4-L5: Mild annular bulging with slight effacement of the ventral thecal sac. Narrowing of the subart icular recess bilaterally left greater than right with impingement traversing left L5 nerve root. Mil d to moderate left and no significant right foraminal narrowing. Mild facet arthropathy. L5-S1: Tiny shallow central protrusion. Slight effacement of ventral thecal sac. Osteophytic ridging with mild right greater than left foraminal narrowing. Visualized pelvic bony structures: Normal. Paravertebral soft tissues: Normal. Disc bulging L3-L4 L4-L5 and L5-S1 has progressed since 2008. Disc desiccation L4-5 and L5-S1 has pro gressed. MR/MR lumbar spine wo con* [id number] IMPRESSION: 1. Mild lumbar curve. No acute compression. No high-grade central canal stenos is. 2. Annular bulging with shallow central protrusion L3-4 and L4-5 with impingem ent on the traversing L4 nerve roots bilaterally and left L5 nerve root. Mild c entral canal stenosis at these levels. 3. Mild to moderate left L4-5 foraminal narrowing. 4. Tiny shallow central protrusion L5-S1 with slight effacement of ventral the dawson sac. Mild right L5-S1 foraminal narrowing. 5. Mild facet arthropathy L3-L4 and L4 L4 L5.
--- NOTE | 2021-04-10 16:30 | XR_ITS ---
WS: [id number] LUMBAR SPINE FLEXION AND EXTENSION TECHNIQUE: 3 views of the lumbar spine: Lateral neutral, flexion, and extension views. CLINICAL INFORMATION: M54.16 - Radiculopathy, lumbar region FINDINGS: Disc space narrowing worse L4-5 and L5-S1. Moderate facet arthropathy L4-L5 and L5-S1. No acute compr ession fractures. Normal alignment on the neutral view. No instability on flexion-extension. Cholecys tectomy clips XR/XR lumbar spine f/e only [id number] IMPRESSION: 1. Disc space narrowing worse at L4-L5 and L5-S1. 2. No instability on flexion-extension.
== END 2021-04-10 15:33 | disposition home or self-care (01) ==
LOC: RADWPI 15:35
PROVIDERS: PCP Family Medicine; Visit Provider Nurse Practitioner
DX: M54.16 Radiculopathy, lumbar region (principal); G89.29 Other chronic pain; M47.816 Spondylosis without myelopathy or radiculopathy, lumbar region; M51.27 Other intervertebral disc displacement, lumbosacral region; M51.26 Other intervertebral disc displacement, lumbar region
CPT/HCPCS: 72120; 72148

== ENCOUNTER → 2021-04-20 11:36 | Outpatient (BNVA) | payer MEDICARE, MEDICAID, SELFPAY | PROVIDERS: PCP Family Medicine; Visit Provider Internal Medicine Cardiovascular Disease | DX: I11.0 Hypertensive heart disease with heart failure (principal); I25.119 Atherosclerotic heart disease of native coronary artery with unspecified angina pectoris; I50.32 Chronic diastolic (congestive) heart failure; E78.2 Mixed hyperlipidemia; J45.50 Severe persistent asthma, uncomplicated; G47.33 Obstructive sleep apnea (adult) (pediatric); Z99.89 Dependence on other enabling machines and devices; F17.219 Nicotine dependence, cigarettes, with unspecified nicotine-induced disorders | CPT/HCPCS: 80053; 80061; 83721; 85025 ==

== ENCOUNTER → 2021-05-24 09:22 | Outpatient (BNVA) | payer MEDICARE, MEDICAID, SELFPAY | PROVIDERS: PCP Family Medicine; Visit Provider Anesthesiology | DX: G89.29 Other chronic pain (principal); M54.16 Radiculopathy, lumbar region; Z79.891 Long term (current) use of opiate analgesic; Z87.891 Personal history of nicotine dependence | CPT/HCPCS: 99213 ==

== ENCOUNTER → 2021-05-30 09:32 | Outpatient (BNVA) | payer MEDICARE, MEDICAID, SELFPAY | PROVIDERS: PCP Family Medicine; Visit Provider Nurse Practitioner Psychiatric/Mental Health | DX: F33.2 Major depressive disorder, recurrent severe without psychotic features (principal); F41.1 Generalized anxiety disorder; F43.12 Post-traumatic stress disorder, chronic; Z63.4 Disappearance and death of family member | CPT/HCPCS: 99214 ==

== ENCOUNTER → 2021-07-20 08:46 | Outpatient (BNVA) | payer MEDICARE, MEDICAID, SELFPAY | PROVIDERS: PCP Family Medicine; Visit Provider Anesthesiology | DX: G89.29 Other chronic pain (principal); M54.16 Radiculopathy, lumbar region; J41.0 Simple chronic bronchitis; Z87.891 Personal history of nicotine dependence; Z79.891 Long term (current) use of opiate analgesic | CPT/HCPCS: 99213 ==

== ENCOUNTER → 2021-07-25 07:19 | Outpatient (BNVA) | payer MEDICARE, MEDICAID, SELFPAY | PROVIDERS: PCP Family Medicine; Visit Provider Nurse Practitioner Psychiatric/Mental Health | DX: F33.2 Major depressive disorder, recurrent severe without psychotic features (principal); F41.1 Generalized anxiety disorder; F43.12 Post-traumatic stress disorder, chronic; Z63.4 Disappearance and death of family member | CPT/HCPCS: 99214 ==

== ENCOUNTER 2021-08-31 11:54 | Outpatient (CLI) | payer MEDICARE, MEDICAID, SELFPAY ==
--- NOTE | 2021-08-31 12:09 | CT_ITS ---
WS: [id number] CT NECK WITHOUT CONTRAST. HISTORY: Abscess, neck, LEFT submandibular swelling. TECHNIQUE: Contiguous 5 mm axial images are performed through the neck without intravenous contrast. Sagittal and coronal reformats are also submitted. All CT scans at [facility] use at least on e of these dose optimization techniques: automated exposure control; mA and/or kV adjustment per jose de jesus ent size (includes targeted exams where dose is matched to clinical indication); or iterative reconst ruction. CONTRAST: CONTRAST: None, patient allergic to IV contrast. DLP: 475.9 mGy.cm COMPARISON: None available. On this unenhanced examination the nasopharynx and oropharynx, hypopharynx and larynx are negative fo r focal mass. Torus tubarius and fossa of Rosenmuller and parapharyngeal fat are normal. There are several lymph nodes along the cervical chains. These lymph nodes are mildly prominent and e nlarged increase in number. No necrotic adenopathy. Largest lymph nodes measure approximately 1 cm al fabian the cervical chain. Normal thyroid gland. The RIGHT submandibular gland is significantly larger than the LEFT. The densit y of the gland is similar to the LEFT submandibular gland. Focal area of mixed density and thickening centered over the LEFT symphysis of the mandible. Soft tis neville inflammation measures 3.1 x 1.5 cm. This is probably an abscess associated with dental caries. Th ere are numerous lytic changes within the mandible bilaterally from dental caries. Abscess is associa felicia with the LEFT lateral incisor. Moderate soft tissue inflammation associated with the mandibular a bscess does extend into the submandibular region on the LEFT. Visualized portions of the skull base demonstrate no abnormalities. Orbits and globes are within norm al limits. No soft tissue masses. Visualized paranasal sinuses and mastoid air cells are normal. Lung apices are clear. CT/CT neck wo con [id number] IMPRESSION: 1. Study is compromised without IV contrast. Patient is allergic to IV contras t. 2. There is a soft tissue mass, likely an abscess, involving the LEFT mandibul ar symphysis measuring 3.1 x 1.5 cm. Likely associated with dental caries invol ving the LEFT lateral incisor. Soft tissue inflammation extends into the subman dibular region. 3. Mild cervical chain lymphadenopathy is probably reactive. 4. RIGHT submandibular gland is significantly larger than the LEFT. Consider u ltrasound evaluation to evaluate for an associated mass.
== END 2021-08-31 11:55 | disposition home or self-care (01) ==
PROVIDERS: PCP Family Medicine; Visit Provider Family Medicine
DX: L02.11 Cutaneous abscess of neck (principal)
CPT/HCPCS: 70490

== ENCOUNTER 2021-09-01 18:53 | Emergency (ER) | payer MEDICARE, MEDICAID, SELFPAY ==
[2021-09-01 19:08] VITALS: BP 123/84; PULSE 92; RESP 18; TEMP 37.1; O2SAT 97; BMI 25.0
--- NOTE | 2021-09-01 19:32 | ED_ITS ---
Documented by User: Jamie Alonso MD 09/11/21 17:17 HPI - Skin/Abscess/Foreign Bdy General: Chief complaint: Skin/Abscess/Foreign Body Stated complaint: abscess on face Time Seen by Provider: 09/01/21 19:32 History of Present Illness: Ms Leone is a 56-year-old lady with history of hypertension, hyperlipidemia, history of CA, history of COPD with chronic steroid use who presents emergency department due to facial swelling. She reports symptoms began approximately 5 days ago without known cause, she denies known injury or skin lesion. This initially was more lateral on her left jaw however subsequently spread. There was initially mild erythema and pain. She saw her primary care provider 3 days ago and was prescribed antibiotics, she subsequently returned yesterday and antibiotics were increased and she was referred for outpatient CT. CT does reveal an abscess however she presents to the emergency department today due to worsening symptoms and generalized malaise. She notes fever with T-max 100.4. She has had increased pain as well as swelling. She does endorse difficulty opening her mouth and subjective feeling of increased difficulty swallowing. She denies increased shortness of breath or voice change. Overall intensity symptoms is moderate to severe regarding her discomfort. It is a deep aching feeling. Her symptoms are worse with palpation and movement. No other specific changes to health, exacerbating, or alleviating factors identified. 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 Onset (ago): day(s) Location: face and neck Quality: aching Review of Systems General: Reports: 10 or more systems reviewed and unremarkable except in HPI and below PFSH ED PFSH: Medical History Acute exacerbation of CHF (congestive heart failure) Asthma -severe persistent, started xolair 02/04/2020 -follow up with Dr. West CAD (coronary artery disease) (~12/2019) -Known history of CAD with recent stenting of LAD due to anterior wall STEMI in December -Follows up with Dr. Salcedo; f/u in [address] Bass Chronic post-traumatic stress disorder Chronic radicular lumbar pain COPD (chronic obstructive pulmonary disease) -no acute exacerbation -does not appear to be oxygen dependent at baseline -recently restarted smoking, 1/2 PPD Essential (primary) hypertension -VSS; continue to monitor -continue oral antihypertensives Generalized anxiety disorder GERD (gastroesophageal reflux disease) -on PPI Herniated disc Hyperlipidemia Lesion of ulnar nerve, bilateral Major depressive disorder, 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 New onset of congestive heart failure -Could be secondary to recent STEMI requiring intervention with stenting of LAD last month -Echo: EF=57%, normal systolic and diastolic function, no RWMA, trace TR, trace OK -has been on IV diuresis with Lasix; switched to oral lasix -Continue to monitor electrolytes and renal function -Daily weights, monitor ins and outs -BNP elevated at 948 -Chest x-ray reported as unremarkable -Close monitoring of respiratory status, supplemental oxygen as needed Normocytic anemia -Seems to have intermittent normocytic anemia with a baseline hemoglobin of about 10-11, intermittently normal -Has been on dual antiplatelet therapy given recent stenting -Continue to monitor H&H closely; stable so far -iron and ferritin low; start on iron replacement KRISTOFER on CPAP Psychiatric care Sleep apnea, unspecified Surgical History H/O bilateral oophorectomy H/O skin graft History of carpal tunnel release History of cholecystectomy Presence of stent in LAD coronary artery (01/23/20) S/P section Family History Father Myocardial infarct, Onset Age: 45 Brother Myocardial infarct, Onset Age: 53 Other CAD (coronary artery disease) Social History Quit status (tobacco): has quit using tobacco Year quit tobacco: 2020 - 1PPD x 30 Years Second hand smoke exposure: Yes Alcohol intake: former Lives independently: Yes Household members: family Marital status: Current occupational status: disabled History of recent travel: No Current gender identity: Female Physical Exam Const: COMMON NORMALS: alert GENERAL APPEARANCE: cooperative, well developed and ill appearing (Somewhat) HENMT: COMMON NORMALS: normocephalic and atraumatic HEAD & SCALP: normocephalic and atraumatic OTHER: Patient has approximately 50% normal jaw opening. Dentition is poor. There is no evidence of uvular deviation or significant posterior pharyngeal edema/erythema. No intraoral sublingual findings There is large area of erythema and edema noted to the submandibular region. There is induration approximately 75 to 80% of the way towards the mandibular angle. There is no evidence of crepitus or significant involvement of the trachea. Eye: COMMON NORMALS: conjunctivae normal CONJUNCTIVA: Yes conjunctivae normal SCLERA: sclerae normal Neck/C-Spine: GENERAL: Yes trachea midline OTHER: See HEENT Resp: COMMON NORMALS: normal respiratory effort and clear to auscultation bilaterally EFFORT & INSPECTION: Yes able to speak in complete sentences AUSCULTATION: clear to auscultation bilaterally Cardio: COMMON NORMALS: regular rate and regular rhythm RATE: regular rate and tachycardic RHYTHM: regular rhythm GI: COMMON NORMALS: Soft to palpation PALPATION: Yes Soft to palpation and No Tenderness to palpation present (GI) PERCUSSION: normal to percussion Extremity: GENERAL: Yes normal exam except as noted and No edema Neuro: COMMON NORMALS: moves all extremities SENSORIUM/ORIENTATION: Yes alert and No Orientation impaired Psych: COMMON NORMALS: mental status grossly normal and Normal thought process present THOUGHT PROCESS: Normal thought process present Course ED course: - Patient was seen and evaluated by me at bedside - Patient placed on cardiac monitors, IV access obtained - Initial evaluation notable for exam as above. Patient is tolerating oral secretions and does not have airway compromise at this time. - analgesia, antibiotics given. - Labs notable for leukocytosis. No significant metabolic abnormality. -Prior imaging reviewed. - Upon serial reexamination after treatment the patient was improved with analgesia. - Unfortunately the patient has had fairly significant progression despite outpatient antibiotics. The patient certainly requires IV antibiotics however I am concerned about progression and worsening of clinical status. We do not have ENT currently online community manager. Therefore patient will require transfer. I discussed with the patient and patient is agreeable to transfer. - Patient care handed off to overnight ED physician Dr. Arizmendi pending discussion with accepting facility, tentatively have accepting facility in [place] however still waiting for doc to doc Note: Click bubbles or prepopulated sutton in note writing are used for assistance with data collection and billing and are inherently more limited than narrative and other text portions of this note. Please use narrative for additional clinical history and defer to narrative/free test for any case of contradictory information. If information appears in only free text or click bubble it should be considered present or absent as reported. Please contact note automobile and property underwriter for clarifications of clinical information or contradictory information. MDM is a brief summary, contradictory or erroneous seeming information should be clarified and full note should be reviewed. Vital Signs: Vital signs: Vital Signs Temperature 98.7 F 09/01/21 19:08 Pulse Rate 92 09/01/21 19:08 Respiratory Rate 18 09/01/21 19:08 Blood Pressure 123/84 09/01/21 19:08 Pulse Oximetry 97 09/01/21 19:08 MDM - Skin/Abscess/Foreign Bdy Medical Records I reviewed the patient's medical records. Lab Data I reviewed the patient's lab results. : 09/01/21 20:14 09/01/21 20:14 Laboratory Results WBC 18.1 10^3/uL (4.0-10.0) H 09/01/21 20:14 RBC 4.57 10^6/uL (4.1-5.3) 09/01/21 20:14 Hgb 12.0 g/dL (11.5-15.3) 09/01/21 20:14 Hct 39.1 % (37.0-47.0) 09/01/21 20:14 MCV 85.6 fl (81-99) 09/01/21 20:14 MCH 26.3 pg (28.0-34.0) L 09/01/21 20:14 MCHC 30.7 g/dL (30.0-36.0) 09/01/21 20:14 RDW 19.1 % (12.1-15.1) H 09/01/21 20:14 Plt Count 327 10^3/cmm (130-400) 09/01/21 20:14 MPV 11.7 fL (7.4-10.4) H 09/01/21 20:14 Neut % (Auto) 70.3 % 09/01/21 20:14 Lymph % (Auto) 18.9 % 09/01/21 20:14 Swift % (Auto) 7.2 % 09/01/21 20:14 Eos % (Auto) 2.7 % 09/01/21 20:14 Baso % (Auto) 0.3 % 09/01/21 20:14 Neut # (Auto) 12.75 10^3/uL (1.8-7.7) H 09/01/21 20:14 Lymph # (Auto) 3.4 10^3/uL (0.8-4.8) 09/01/21 20:14 Swift # (Auto) 1.3 10^3/uL (0.2-0.9) H 09/01/21 20:14 Eos # (Auto) 0.5 10^3/uL (0.0-0.8) 09/01/21 20:14 Baso # (Auto) 0.1 10^3/uL (0.0-0.1) 09/01/21 20:14 Nucleated RBC % (auto) 0 % 09/01/21 20:14 Nucleated RBCs # 0.0 /100WBC 09/01/21 20:14 Sodium 141 mmol/L (136-145) 09/01/21 20:14 Potassium 3.5 mmol/L (3.5-5.1) 09/01/21 20:14 Chloride 105 mmol/L (98-107) 09/01/21 20:14 Carbon Dioxide 22 mmol/L (22-29) 09/01/21 20:14 Anion Gap 17.5 (5-19) 09/01/21 20:14 BUN 10 mg/dL (6-20) 09/01/21 20:14 Creatinine 0.5 mg/dL (0.5-0.9) 09/01/21 20:14 GFR Calculation 127.6 mL/min (90-130) 09/01/21 20:14 Glucose 95 mg/dL (65-115) 09/01/21 20:14 Calculated Osmolality 291 mOsm/kg (285-295) 09/01/21 20:14 Lactic Acid 0.7 mmol/L (0.5-2.2) 09/01/21 20:44 Calcium 10.0 mg/dL (8.5-10.5) 09/01/21 20:14 Total Bilirubin 0.2 mg/dL (0.15-1.2) 09/01/21 20:14 AST 9 U/L (0-32) 09/01/21 20:14 ALT 8 U/L (0-33) 09/01/21 20:14 Alkaline Phosphatase 153 IU/L (35-105) H 09/01/21 20:14 Total Protein 8.0 g/dL (6.6-8.7) 09/01/21 20:14 Albumin 4.3 g/dL (3.5-5.2) 09/01/21 20:14 Globulin 3.7 g/dL (1.3-4.6) 09/01/21 20:14 SARS-CoV-2 Ag (Rapid) Negative (Negative) 09/01/21 22:12 Discharge Plan Discharge Patient Disposition: Xfer Short-Term Hosp Clinical Impression: Abscess of submandibular region Condition: Fair Referrals: Lauri Krishnan MD [Primary Care Provider] - Coding Level of Care Code ED Package Center Supervisor for Chg Fwd Exam Comprehensive Documented by User: Sourav Arizmendi DO 09/02/21 03:36 HPI - Skin/Abscess/Foreign Bdy General: Chief complaint: Skin/Abscess/Foreign Body Stated complaint: abscess on face Time Seen by Provider: 09/01/21 19:32 PFSH ED PFSH: Medical History Acute exacerbation of CHF (congestive heart failure) Asthma -severe persistent, started xolair 02/04/2020 -follow up with Dr. West CAD (coronary artery disease) (~12/2019) -Known history of CAD with recent stenting of LAD due to anterior wall STEMI in December -Follows up with Dr. Salcedo; f/u in [address] Bass Chronic post-traumatic stress disorder Chronic radicular lumbar pain COPD (chronic obstructive pulmonary disease) -no acute exacerbation -does not appear to be oxygen dependent at baseline -recently restarted smoking, 1/2 PPD Essential (primary) hypertension -VSS; continue to monitor -continue oral antihypertensives Generalized anxiety disorder GERD (gastroesophageal reflux disease) -on PPI Herniated disc Hyperlipidemia Lesion of ulnar nerve, bilateral Major depressive disorder, 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 New onset of congestive heart failure -Could be secondary to recent STEMI requiring intervention with stenting of LAD last month -Echo: EF=57%, normal systolic and diastolic function, no RWMA, trace TR, trace OK -has been on IV diuresis with Lasix; switched to oral lasix -Continue to monitor electrolytes and renal function -Daily weights, monitor ins and outs -BNP elevated at 948 -Chest x-ray reported as unremarkable -Close monitoring of respiratory status, supplemental oxygen as needed Normocytic anemia -Seems to have intermittent normocytic anemia with a baseline hemoglobin of about 10-11, intermittently normal -Has been on dual antiplatelet therapy given recent stenting -Continue to monitor H&H closely; stable so far -iron and ferritin low; start on iron replacement KRISTOFER on CPAP Psychiatric care Sleep apnea, unspecified Surgical History H/O bilateral oophorectomy H/O skin graft History of carpal tunnel release History of cholecystectomy Presence of stent in LAD coronary artery (01/23/20) S/P section Family History Father Myocardial infarct, Onset Age: 45 Brother Myocardial infarct, Onset Age: 53 Other CAD (coronary artery disease) Social History Quit status (tobacco): has quit using tobacco Year quit tobacco: 2020 - 1PPD x 30 Years Second hand smoke exposure: Yes Alcohol intake: former Lives independently: Yes Household members: family Marital status: Current occupational status: disabled History of recent travel: No Current gender identity: Female Course Vital Signs: Vital signs: Vital Signs Temperature 98.7 F 09/01/21 19:08 Pulse Rate 92 09/01/21 19:08 Respiratory Rate 18 09/01/21 19:08 Blood Pressure 123/84 09/01/21 19:08 Pulse Oximetry 97 09/01/21 19:08 MDM - Skin/Abscess/Foreign Bdy Medicial Decision Making 56-year-old female checked out to me at shift change by the previous physician. This lady has been treated with Zosyn and vancomycin for a submandibular cellulitis and abscess abutting the submandibular space with inflammation noted within the space on his CT yesterday. This is concerning, as the patient could develop Janet's angina quite easily. We have no ENT services available at this facility currently. The previous physician had talked to [facility] in [place], and the patient had an accepting physician there with a bed. She went by ground ambulance in stable condition Lab Data : 09/01/21 20:14 09/01/21 20:14 Laboratory Results WBC 18.1 10^3/uL (4.0-10.0) H 09/01/21 20:14 RBC 4.57 10^6/uL (4.1-5.3) 09/01/21 20:14 Hgb 12.0 g/dL (11.5-15.3) 09/01/21 20:14 Hct 39.1 % (37.0-47.0) 09/01/21 20:14 MCV 85.6 fl (81-99) 09/01/21 20:14 MCH 26.3 pg (28.0-34.0) L 09/01/21 20:14 MCHC 30.7 g/dL (30.0-36.0) 09/01/21 20:14 RDW 19.1 % (12.1-15.1) H 09/01/21 20:14 Plt Count 327 10^3/cmm (130-400) 09/01/21 20:14 MPV 11.7 fL (7.4-10.4) H 09/01/21 20:14 Neut % (Auto) 70.3 % 09/01/21 20:14 Lymph % (Auto) 18.9 % 09/01/21 20:14 Swift % (Auto) 7.2 % 09/01/21 20:14 Eos % (Auto) 2.7 % 09/01/21 20:14 Baso % (Auto) 0.3 % 09/01/21 20:14 Neut # (Auto) 12.75 10^3/uL (1.8-7.7) H 09/01/21 20:14 Lymph # (Auto) 3.4 10^3/uL (0.8-4.8) 09/01/21 20:14 Swift # (Auto) 1.3 10^3/uL (0.2-0.9) H 09/01/21 20:14 Eos # (Auto) 0.5 10^3/uL (0.0-0.8) 09/01/21 20:14 Baso # (Auto) 0.1 10^3/uL (0.0-0.1) 09/01/21 20:14 Nucleated RBC % (auto) 0 % 09/01/21 20:14 Nucleated RBCs # 0.0 /100WBC 09/01/21 20:14 Sodium 141 mmol/L (136-145) 09/01/21 20:14 Potassium 3.5 mmol/L (3.5-5.1) 09/01/21 20:14 Chloride 105 mmol/L (98-107) 09/01/21 20:14 Carbon Dioxide 22 mmol/L (22-29) 09/01/21 20:14 Anion Gap 17.5 (5-19) 09/01/21 20:14 BUN 10 mg/dL (6-20) 09/01/21 20:14 Creatinine 0.5 mg/dL (0.5-0.9) 09/01/21 20:14 GFR Calculation 127.6 mL/min (90-130) 09/01/21 20:14 Glucose 95 mg/dL (65-115) 09/01/21 20:14 Calculated Osmolality 291 mOsm/kg (285-295) 09/01/21 20:14 Lactic Acid 0.7 mmol/L (0.5-2.2) 09/01/21 20:44 Calcium 10.0 mg/dL (8.5-10.5) 09/01/21 20:14 Total Bilirubin 0.2 mg/dL (0.15-1.2) 09/01/21 20:14 AST 9 U/L (0-32) 09/01/21 20:14 ALT 8 U/L (0-33) 09/01/21 20:14 Alkaline Phosphatase 153 IU/L (35-105) H 09/01/21 20:14 Total Protein 8.0 g/dL (6.6-8.7) 09/01/21 20:14 Albumin 4.3 g/dL (3.5-5.2) 09/01/21 20:14 Globulin 3.7 g/dL (1.3-4.6) 09/01/21 20:14 SARS-CoV-2 Ag (Rapid) Negative (Negative) 09/01/21 22:12 Discharge Plan Discharge Patient Disposition: Xfer Short-Term Hosp Clinical Impression: Abscess of submandibular region Condition: Fair Referrals: Lauri Krishnan MD [Primary Care Provider] - Coding Level of Care Code ED Package Center Supervisor for Chg Fwd Exam Comprehensive
[2021-09-01] MEDS: fentaNYL 50 mcg/mL INJ 2mL IVP (20:24)
[2021-09-01 20:25] LABS: Basophils # 0.1 10^3/uL (0.0-0.1); Basophils % 0.3 %; Eosinophils # 0.5 10^3/uL (0.0-0.8); Eosinophils % 2.7 %; Hematocrit 39.1 % (37.0-47.0); Lymphocytes # 3.4 10^3/uL (0.8-4.8); Lymphocytes % 18.9 %; Mean Corpuscular HGB Conc 30.7 g/dL (30.0-36.0); Mean Corpuscular Hemoglobin 26.3 pg (28.0-34.0); Mean Corpuscular Volume 85.6 fl (81-99); Mean Platelet Volume 11.7 fL (7.4-10.4); Monocytes # 1.3 10^3/uL (0.2-0.9); Monocytes % 7.2 %; Neutrophils # 12.75 10^3/uL (1.8-7.7); Neutrophils % 70.3 %; Nucleated Red Blood Cells % 0 %; Platelet Count 327 10^3/cmm (130-400); Red Blood Count 4.57 10^6/uL (4.1-5.3); Red Cell Distribution Width 19.1 % (12.1-15.1); White Blood Count 18.1 10^3/uL (4.0-10.0)
[2021-09-01 20:39] LABS: Alanine Aminotransferase 8 U/L (0-33); Albumin Level 4.3 g/dL (3.5-5.2); Alkaline Phosphatase 153 IU/L (35-105); Anion Gap 17.5 (5-19); Aspartate Amino Transferase 9 U/L (0-32); Blood Urea Nitrogen 10 mg/dL (6-20); Carbon Dioxide 22 mmol/L (22-29); Chloride 105 mmol/L (98-107); Globulin 3.7 g/dL (1.3-4.6); Glomerular Filtration Rate 127.6 mL/min (90-130); Glucose 95 mg/dL (65-115); Osmolality Calculated 291 mOsm/kg (285-295); Potassium 3.5 mmol/L (3.5-5.1); Sodium 141 mmol/L (136-145); Total Bilirubin 0.2 mg/dL (0.15-1.2)
[2021-09-01 21:11] LABS: Lactic Sepsis W/Reflex 0.7 mmol/L (0.5-2.2)
[2021-09-01] MEDS: piperacillin-tazobactam 4.5 GM in sodium chloride 0.9% (plus) 50 ML IV (21:44)
[2021-09-01] MEDS: morphine 4 mg/mL SDV 1 mL IVP (22:27)
[2021-09-01 23:11] LABS: SARS Covid-2 Antigen Negative (Negative)
== END 2021-09-02 01:37 | disposition short-term general hospital (02) ==
PROVIDERS: Emergency Provider Emergency Medicine; PCP Family Medicine
DX: K12.2 Cellulitis and abscess of mouth (principal); I11.0 Hypertensive heart disease with heart failure; I50.9 Heart failure, unspecified; I25.10 Atherosclerotic heart disease of native coronary artery without angina pectoris; J44.9 Chronic obstructive pulmonary disease, unspecified; E78.5 Hyperlipidemia, unspecified; Z87.891 Personal history of nicotine dependence; Z20.822 Contact with and (suspected) exposure to COVID-19
CPT/HCPCS: 80053; 83605; 85025; 87040; 87426; 96365; 96375; 99285; J2270; J2543; J3010; J3370; J7040

== ENCOUNTER → 2021-10-24 09:04 | Outpatient (BNVA) | payer MEDICARE, MEDICAID, SELFPAY | PROVIDERS: PCP Family Medicine; Visit Provider Nurse Practitioner Psychiatric/Mental Health | DX: F33.2 Major depressive disorder, recurrent severe without psychotic features (principal); F41.1 Generalized anxiety disorder; F43.12 Post-traumatic stress disorder, chronic; Z63.4 Disappearance and death of family member | CPT/HCPCS: 99214 ==

== ENCOUNTER → 2021-11-07 10:38 | Day surgery (SDC) | payer MEDICARE, MEDICAID, SELFPAY ==
[2021-11-07 10:45] VITALS: BP 90/48; PULSE 77; RESP 18; TEMP 36.4; O2SAT 93
[2021-11-07] MEDS: ferric carboxy (IVPB) 750 MG in sodium chloride 0.9% (100 ml) 100 ML 345 MG IV (11:04)
== END ==
PROVIDERS: PCP Family Medicine; Visit Provider Family Medicine
DX: D50.9 Iron deficiency anemia, unspecified (principal)
CPT/HCPCS: 96365; J1439

== ENCOUNTER → 2021-11-14 11:14 | Day surgery (SDC) | payer MEDICARE, MEDICAID, SELFPAY ==
[2021-11-14 11:23] VITALS: BP 112/70; PULSE 81; RESP 18; TEMP 36.5; O2SAT 95
[2021-11-14] MEDS: ferric carboxy (IVPB) 750 MG in sodium chloride 0.9% (100 ml) 100 ML 345 MG IV (11:34)
== END ==
PROVIDERS: PCP Family Medicine; Visit Provider Family Medicine
DX: D50.9 Iron deficiency anemia, unspecified (principal)
CPT/HCPCS: 96365; J1439

== ENCOUNTER → 2021-11-23 10:10 | Outpatient (BNVA) | payer MEDICARE, MEDICAID, SELFPAY | PROVIDERS: PCP Family Medicine; Visit Provider Nurse Practitioner Psychiatric/Mental Health | DX: F41.1 Generalized anxiety disorder; F43.12 Post-traumatic stress disorder, chronic; Z63.4 Disappearance and death of family member; F33.2 Major depressive disorder, recurrent severe without psychotic features | CPT/HCPCS: 99214 ==

== ENCOUNTER 2021-12-18 11:55 | Outpatient (CLI) | payer MEDICARE, MEDICAID, SELFPAY ==
--- NOTE | 2021-12-18 12:41 | CT_ITS ---
WS: [id number] LDCT LUNG CANCER SCREENING TECHNIQUE: Noncontrast CT of the chest with coronal and sagittal reformatted images. CLINICAL INFORMATION: HX OF TOBACCO USE COMPARISON: CT September 26, 2020 DLP: 73.60 mGy.cm DIvol: Mean CTDIvol: 1.60 (mGy) All CT scans at use at least one of these dose optimization techniques: automat ed exposure control; mA and/or kV adjustment per patient size (includes targeted exams where dose is matched to clinical indication); or iterative reconstruction. FINDINGS: Moderate chronic emphysematous changes. A few calcified granulomas. No suspicious pulmonary parenchym al abnormalities. Interstitial reticular thickening in the RIGHT upper lobe. Normal caliber thoracic aorta. Coronary calcification. No mediastinal or hilar lymphadenopathy. Small esophageal hiatal hernia. Partially visualized adrenal glands appear normal. No axillary lymphadenop athy. CT/CT lung screening [id number] IMPRESSION: LUNG-RADS: 1-Negative FOLLOW UP: 12 Month: Continue annual screening with LDCT
== END 2021-12-18 11:56 | disposition home or self-care (01) ==
LOC: RAD 11:58
PROVIDERS: PCP Family Medicine; Visit Provider Family Medicine
DX: Z12.2 Encounter for screening for malignant neoplasm of respiratory organs (principal); F17.210 Nicotine dependence, cigarettes, uncomplicated
CPT/HCPCS: 71271

== ENCOUNTER 2021-12-20 09:38 | Outpatient (CLI) | payer MEDICARE, MEDICAID, SELFPAY ==
--- NOTE | 2021-12-20 09:48 | CT_ITS ---
WS: [id number] CT ABDOMEN AND PELVIS WITH CONTRAST HISTORY: ABNORMAL WEIGHT LOSS TECHNIQUE: Imaging performed of the abdomen and pelvis with IV contrast. Single phase imaging of the abdomen. Coronal and sagittal reformats are submitted. All CT scans at [facility] use at [address] one of these dose optimization techniques: automated exposure control; mA and/or kV adjustment per patient size (includes targeted exams where dose is matched to clinical indication); or iterative re construction. IV CONTRAST: Visipaque 320; 95 mL IV. Oral contrast: No DLP: 891.99 mGy.cm COMPARISON: 07/16/2019, 02/15/2011 Lower thorax: Benign granuloma at the RIGHT lung base. There is a small amount of fluid adjacent to t he distal RIGHT lateral esophagus. Similar to the prior study from 07/16/2019. Heart is normal size. S mall hiatal hernia. Liver/biliary system: Liver is very mildly enlarged. 5 mm low-attenuation nodule in the anterior live r was present on prior studies. Most consistent with a small cyst. Adjacent to the RIGHT lateral falc iform ligament is an area of decreased attenuation measuring 14 x 14 mm. This was not present on prio r studies and may be an area of hepatic steatosis. This will need further evaluation as it is new and margins are slightly irregular. Portal vein is patent. No bile duct dilatation. Gallbladder: Status post cholecystectomy. Pancreas: Normal size pancreas and pancreatic duct. No adjacent inflammation. Spleen: Normal size spleen. No mass or infarct. Adrenal glands: Normal. Right kidney: Normal. Left kidney: Normal. Aorta: Mild atherosclerosis with no aneurysm. Lymphadenopathy: None. Free fluid: None. GI tract: Stomach is moderately well distended with food products. Mild soft tissue thickening involv ing the antrum of the stomach. No discrete mass identified. No small bowel obstruction. Mild constipa tion. Prior appendectomy. Abdominal wall: Unremarkable abdominal wall. No hernia. Pelvis: Prior hysterectomy. No pelvic mass or ascites. Bones: Mild degenerative disc disease at L4-5 and L5-S1. No osteoblastic or osteolytic bone disease. Moderate bilateral narrowing of the hip joints. CT/CT abdomen pelvis w con* [id number] IMPRESSION: 1. No acute abdominal or pelvic abnormalities are identified. 2. Low-attenuation within the liver just to the RIGHT of the falciform ligamen t is probably hepatic steatosis. Recommend follow-up ultrasound evaluation to c onfirm no solid mass. 3. Mild thickening of the pylorus is probably due to peristalsis. No discrete mass identified. If there are any symptoms related to outlet obstruction upper endoscopy may be helpful. 4. Mild atherosclerosis aorta. 5. Prior appendectomy.
[2021-12-20] MEDS: barium sulfate 450 mL Oral Susp PO (09:51)
[2021-12-20] MEDS: iodixanol 320 mg/mL 100mL Btl IV (11:39)
== END 2021-12-20 09:39 | disposition home or self-care (01) ==
LOC: RAD 09:39
PROVIDERS: PCP Family Medicine; Visit Provider Family Medicine
DX: R63.4 Abnormal weight loss (principal); K76.9 Liver disease, unspecified; I70.0 Atherosclerosis of aorta
CPT/HCPCS: 74177

== ENCOUNTER → 2022-02-13 13:36 | Outpatient (BNVA) | payer MEDICARE, MEDICAID, SELFPAY | PROVIDERS: PCP Family Medicine; Visit Provider Internal Medicine Critical Care Medicine | DX: J45.50 Severe persistent asthma, uncomplicated (principal); J30.9 Allergic rhinitis, unspecified; J43.9 Emphysema, unspecified; Z87.891 Personal history of nicotine dependence; Z95.5 Presence of coronary angioplasty implant and graft | CPT/HCPCS: 99214 ==

== ENCOUNTER 2022-03-15 06:49 | Outpatient (CLI) | payer MEDICARE, MEDICAID, SELFPAY ==
--- NOTE | 2022-03-15 07:15 | MR_ITS ---
WS: [id number] MRI of the abdomen without and with gadolinium enhancement. INDICATION: Unexpected weight loss. TECHNIQUE: Coronal single shot axial single shot axial T2, axial in and out of phase imaging. Axial 3 -D dynamic postgadolinium, coronal 3-D T1, axial 3-D five-minute post gadolinium. COMPARISON: CT December 20, 2021 and ultrasound September 11, 2021 FINDINGS: Prior cholecystectomy. Diffuse geographic fatty infiltration in the RIGHT hepatic lobe with decreased signal on the out of phase imaging. Tiny hepatic cyst in the medial segment RIGHT hepatic lobe. No T2 signal abnormalities in the area of prior concern. Vague area of decreased perfusion tatiana g falciform ligament seen on the dynamic post gadolinium imaging which is less distinct on the [address] post gadolinium imaging. This has a benign appearance and may represent incidental transient hepat ic perfusion defect or focal fat. Suggestion of signal dropout in this area which would be concordant with focal fat. This is difficult to visualize due to location adjacent to the falciform ligament. Portal vein and splenic vein are patent. Normal pancreas. Normal spleen. No hydronephrosis in either kidney. Adrenal glands are normal. Small esophageal hiatal hernia. Normal caliber abdominal aorta. Prior chol ecystectomy. MR/MR abdomen wo/w con* [id number] IMPRESSION: 1. Tiny incidental cyst medial segment of the RIGHT hepatic lobe corresponds t o one of the lesions seen on the prior CT. 2. Additional ill-defined low-attenuation area seen on the prior CT adjacent t o the falciform ligament corresponds to a small vague area of decreased perfusi on which has a benign appearance. Nonspecific but may represent incidental mejia sient hepatic perfusion anomaly versus focal fat. 3. Prior cholecystectomy. 4. No other suspicious findings.
[2022-03-15] MEDS: gadobenate dimeglumine 20 mL vial IV (08:14)
== END 2022-03-15 06:50 | disposition home or self-care (01) ==
LOC: RAD 06:49
PROVIDERS: PCP Family Medicine; Visit Provider Family Medicine
DX: R16.0 Hepatomegaly, not elsewhere classified (principal); Z90.49 Acquired absence of other specified parts of digestive tract; K76.89 Other specified diseases of liver
CPT/HCPCS: 74183

== ENCOUNTER 2022-04-29 14:05 | Emergency (ER) | payer MEDICARE, MEDICAID, SELFPAY ==
[2022-04-29] VITALS (7 sets, daily range): BP systolic 111–144; BP diastolic 73–98; PULSE 72–89; RESP 16–24; TEMP 36.8; O2SAT 95–99; BMI 22.4
--- NOTE | 2022-04-29 14:32 | XRR_ITS ---
PROCEDURE INFORMATION: Exam: XR Chest Exam date and time: 04/29/2022 2:55 PM Age: 56 years old Clinical indication: Shortness of breath TECHNIQUE: Imaging protocol: Radiologic exam of the chest. Views: 2 views. COMPARISON: CR XR chest 1V portable [id number] 06/18/2020 3:33 PM FINDINGS: Lungs: Calcified granuloma noted in the right lung base. No consolidation. Pleural spaces: Unremarkable. No pleural effusion. No pneumothorax. Heart/Mediastinum: Unremarkable. No cardiomegaly. Bones/joints: Unremarkable. XR/XR chest 2V* [id number] IMPRESSION: No acute findings.
--- NOTE | 2022-04-29 14:33 | ECG_ITS ---
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 Measurements Intervals Baxter Rate: 84 P: 72 AZ: 151 QRS: 88 QRSD: 84 T: 84 QT: 393 QTc: 466 Interpretive Statements SINUS RHYTHM WITH SINUS ARRHYTHMIA MINIMAL ST DEPRESSION [0.025+ mV ST DEPRESSION] INTERPRETATION BASED ON A DEFAULT AGE OF 40 YEARS Compared to ECG 02/10/2020 01:08:48 ST (T wave) deviation now present T-wave abnormality no longer present Possible ischemia no longer present Electronically Signed On 04-30-2022 14:51:06 CDT by Navi Maldonaod M.D. [id number] f
--- NOTE | 2022-04-29 14:40 | ED_ITS ---
HPI - SOB/Dyspnea General: Chief Complaint: Shortness of Breath/Dyspnea Stated Complaint: SOB Time Seen by Provider: 04/29/22 14:27 History of Present Illness: HPI Narrative: 56-year-old female presents with shortness of breath has been going on for about 4 days. Patient denies any other associated symptoms such as abdominal pain, chest pain fevers nausea palpitations or vomiting. Patient has a history of COPD and CHF. She is concerned about maybe a CHF exacerbation. She does have increasing cough. Associated symptoms: Deny abdominal pain, chest pain, extremity pain, fever(s), nausea, palpitations or vomiting Review of Systems Const: Denies: fever(s) or chills Eyes: Denies: change in vision or blurry vision ENMT: Denies: throat pain or ear or mastoid pain Card: Denies: chest pain or palpitations Resp: Reports: dyspnea and non-productive cough; Denies: wheezing GI: Denies: abdominal pain, nausea or vomiting : Denies: flank pain, difficulty voiding or urinary frequency Musc: Denies: extremity pain Skin/Breast: Denies: rash or pruritus Neuro: Denies: headache(s) or numbness in extremities Psych: Denies: anxiety or depression PFSH ED PFSH: Medical History Acute exacerbation of CHF (congestive heart failure) Asthma -severe persistent, started xolair 02/04/2020 -follow up with Dr. West CAD (coronary artery disease) (~12/2019) -Known history of CAD with recent stenting of LAD due to anterior wall STEMI in December -Follows up with Dr. Salcedo; f/u in [address] Bass Chronic post-traumatic stress disorder Chronic radicular lumbar pain COPD (chronic obstructive pulmonary disease) -no acute exacerbation -does not appear to be oxygen dependent at baseline -recently restarted smoking, 1/2 PPD Essential (primary) hypertension -VSS; continue to monitor -continue oral antihypertensives Generalized anxiety disorder GERD (gastroesophageal reflux disease) -on PPI Herniated disc Hyperlipidemia Lesion of ulnar nerve, bilateral Major depressive disorder, 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 New onset of congestive heart failure -Could be secondary to recent STEMI requiring intervention with stenting of LAD last month -Echo: EF=57%, normal systolic and diastolic function, no RWMA, trace TR, trace WV -has been on IV diuresis with Lasix; switched to oral lasix -Continue to monitor electrolytes and renal function -Daily weights, monitor ins and outs -BNP elevated at 948 -Chest x-ray reported as unremarkable -Close monitoring of respiratory status, supplemental oxygen as needed Normocytic anemia -Seems to have intermittent normocytic anemia with a baseline hemoglobin of about 10-11, intermittently normal -Has been on dual antiplatelet therapy given recent stenting -Continue to monitor H&H closely; stable so far -iron and ferritin low; start on iron replacement KRISTOFER on CPAP Psychiatric care Sleep apnea, unspecified Surgical History (Updated 02/13/22 @ 14:19 by Andria Espinal LPN) H/O bilateral oophorectomy H/O skin graft History of carpal tunnel release History of cholecystectomy Presence of stent in LAD coronary artery (01/23/20) S/P section Family History Father Myocardial infarct, Onset Age: 45 Brother Myocardial infarct, Onset Age: 53 Other CAD (coronary artery disease) Social History Smoking and tobacco status: former smoker (several months) Quit status (tobacco): has quit using tobacco Year quit tobacco: 2020 - 1PPD x 30 Years Second hand smoke exposure: Yes Alcohol intake: former Lives independently: Yes Household members: family Marital status: Current occupational status: disabled History of recent travel: No Current gender identity: Female Physical Exam Const: COMMON NORMALS: no acute distress, patient oriented x3 and alert HENMT: COMMON NORMALS: hearing grossly normal bilaterally and moist oral mucous membranes Resp: COMMON NORMALS: clear to auscultation bilaterally EFFORT & INSPECTION: Yes able to speak in complete sentences, No tachypneic, No respir atory distress and Yes Actively coughing AUSCULTATION: clear to auscultation bilaterally Cardio: COMMON NORMALS: regular rate and regular rhythm RATE: regular rate RHYTHM: regular rhythm GI: COMMON NORMALS: Normal to inspection, nondistended, normoactive bowel sounds present, Soft to palpation and No hepatosplenomegaly present PALPATION: Yes Soft to palpation and Yes No hepatosplenomegaly present Extremity: COMMON NORMALS: full ROM and capillary refill normal Neuro: COMMON NORMALS: patient oriented x3, moves all extremities, no focal motor deficits and no sensory deficits noted SENSORIUM/ORIENTATION: Yes alert Psych: COMMON NORMALS: mental status grossly normal, cooperative and speech n ormal SPEECH: Yes normal speech Skin: COMMON NORMALS: no rashes or lesions noted and turgor normal GENERAL SKIN EXAM: no rashes or lesions noted and turgor normal Course Vital Signs: Vital signs: Vital Signs Temperature 98.3 F 04/29/22 14:20 Pulse Rate 89 04/29/22 15:32 Respiratory Rate 16 04/29/22 15:32 Blood Pressure 111/73 04/29/22 15:32 Pulse Oximetry 99 04/29/22 15:32 Oxygen Delivery Me thod 04/29/22 15:32 MDM - SOB/Dyspnea Medical Decision Making Patient likely with viral syndrome with acute on chronic bronchitis. Patient will be started on steroid and azithromycin. She should use her inhaler every 6 hours for the next 24 hours then as needed. Patient should follow-up with her primary care provider in 3 to 4 days for recheck of her symptoms. Patient stable and discharged home Lab Data : 04/29/22 14:45 04/29/22 14:45 Labs/Radiology: Radiology Impressions Chest X-Ray 04/29/22 14:32 IMPRESSION: No acute findings. Laboratory Results WBC 6.7 10^3/uL (4.0-10.0) 04/29/22 14:45 RBC 4.66 10^6/uL (4.1-5.3) 04/29/22 14:45 Hgb 14.3 g/dL (11.5-15.3) 04/29/22 14:45 Hct 43.4 % (37.0-47.0) 04/29/22 14:45 MCV 93.1 fl (81-99) 04/29/22 14:45 MCH 30.7 pg (28.0-34.0) 04/29/22 14:45 MCHC 32.9 g/dL (30.0-36.0) 04/29/22 14:45 RDW 13.7 % (12.1-15.1) 04/29/22 14:45 Plt Count 293 10^3/cmm (130-400) 04/29/22 14:45 MPV 11.6 fL (7.4-10.4) H 04/29/22 14:45 Neut % (Auto) 48.8 % 04/29/22 14:45 Lymph % (Auto) 41.9 % 04/29/22 14:45 Green % (Auto) 6.2 % 04/29/22 14:45 Eos % (Auto) 1.9 % 04/29/22 14:45 Baso % (Auto) 0.9 % 04/29/22 14:45 Neut # (Auto) 3.28 10^3/uL (1.8-7.7) 04/29/22 14:45 Lymph # (Auto) 2.8 10^3/uL (0.8-4.8) 04/29/22 14:45 Green # (Auto) 0.4 10^3/uL (0.2-0.9) 04/29/22 14:45 Eos # (Auto) 0.1 10^3/uL (0.0-0.8) 04/29/22 14:45 Baso # (Auto) 0.1 10^3/uL (0.0-0.1) 04/29/22 14:45 Nucleated RBC % (auto) 0 % 04/29/22 14:45 Nucleated RBCs # 0.0 /100WBC 04/29/22 14:45 Sodium 140 mmol/L (136-145) 04/29/22 14:45 Potassium 3.5 mmol/L (3.5-5.1) 04/29/22 14:45 Chloride 104 mmol/L (98-107) 04/29/22 14:45 Carbon Dioxide 24 mmol/L (22-29) 04/29/22 14:45 Anion Gap 15.5 (5-19) 04/29/22 14:45 BUN 4 mg/dL (6-20) L 04/29/22 14:45 Creatinine 0.6 mg/dL (0.5-0.9) 04/29/22 14:45 GFR Calculation 103.4 mL/min (90-130) 04/29/22 14:45 Glucose 81 mg/dL (65-115) 04/29/22 14:45 Calculated Osmolality 286 mOsm/kg (285-295) 04/29/22 14:45 Calcium 9.3 mg/dL (8.5-10.5) 04/29/22 14:45 Magnesium 2.0 mg/dL (1.7-2.3) 04/29/22 14:45 Total Bilirubin 0.4 mg/dL (0.15-1.2) 04/29/22 14:45 AST 9 U/L (0-32) 04/29/22 14:45 ALT 9 U/L (0-33) 04/29/22 14:45 Alkaline Phosphatase 171 U/L (35-105) H 04/29/22 14:45 Troponin T Baseline 7 ng/L (0-10) 04/29/22 14:45 C-Reactive Protein 16.2 mg/L (0.0-4.9) H 04/29/22 14:45 NT-Pro-B Natriuret Pep 924 pg/mL (0-125) H 04/29/22 14:45 Total Protein 6.8 g/dL (6.6-8.7) 04/29/22 14:45 Albumin 4.1 g/dL (3.5-5.2) 04/29/22 14:45 Globulin 2.7 g/dL (1.3-4.6) 04/29/22 14:45 Discharge Plan Discharge Condition: Stable Prescriptions: No Action albuterol sulfate 2.5 mg /3 mL (0.083 %) solution for nebulization 2.5 mg INHALATION QID@07,12,16,20 nitroglycerin 0.4 mg tablet, sublingual 0.4 mg SUBLINGUAL Q5M PRN (Reason: chest pain) Qty: 25 6RF Rx Instructions: do not exceed 3 doses per episode naproxen 500 mg tablet 500 mg PO BID PRN (Reason: Pain) 30 Days Qty: 60 0RF epinephrine [EpiPen Jr 2-Guille] 0.15 mg/0.3 mL auto-injector 0.15 mg IM Q30M PRN (Reason: anaphylaxis) Qty: 2 1RF Rx Instructions: do not exceed 12 doses per 24 hrs potassium chloride 20 mEq tablet extended release See Rx Instructions .ROUTE .COMPLEX Qty: 90 2RF Rx Instructions: Please take 20 mEq three times a day for 2 days and then 1 tab twice a day; Xolair 150 mg/mL syringe 300 mg SUBCUT .S9Lusox Qty: 4 6RF oxycodone-acetaminophen 7.5-325 mg tablet 1 tab PO Q8H PRN (Reason: Pain) methadone 5 mg tablet 5 mg PO TID ropinirole 0.5 mg tablet 0.5 mg PO BID Qty: 180 2RF Rx Instructions: Take one tablet twice per day fluoxetine [Prozac] 40 mg capsule 40 mg PO QAM Qty: 90 2RF Rx Instructions: Take one capsule every morning pantoprazole 40 mg tablet,delayed release (DR/EC) 40 mg PO BID codeine-guaifenesin 10-200 mg/5 mL liquid 5 ml PO Q6H PRN (Reason: cough) Qty: 200 0RF losartan 25 mg tablet 25 mg PO DAILY Qty: 30 3RF azelastine 137 mcg (0.1 %) aerosol,spray 1 spray INTRANASAL BID@0700,2200 30 Days Qty: 30 4RF Rx Instructions: administer into each nostril albuterol sulfate [ProAir HFA] 90 mcg/actuation HFA aerosol inhaler 2 puff INHALATION Q6H PRN (Reason: Shortness Of Breath Or Wheezing) Qty: 8.5 3RF prednisone 5 mg tablet 5 mg PO .COMPLEX Qty: 30 3RF Rx Instructions: 5 mg PO Every other day; take at 729 clopidogrel 75 mg tablet 75 mg PO DAILY@729 Qty: 90 3RF furosemide 40 mg tablet See Rx Instructions .ROUTE .COMPLEX Qty: 135 3RF Rx Instructions: Please take 1 tab in the morning and 1/2 tab in the evening. take at 0700 and 2200 Flonase Allergy Relief 50 mcg/actuation spray,suspension 1 spray INTRANASAL BID@ Qty: 15.8 3RF Rx Instructions: administer into each nostril Perforomist 20 mcg/2 mL solution for nebulization See Rx Instructions .ROUTE .COMPLEX Qty: 60 11RF Dose Instruction: USE 1 VIAL IN NEBULIZER EVERY 12 HOURS - Morning and Evening Rx Instructions: USE 1 VIAL IN NEBULIZER EVERY 12 HOURS - Morning and Evening Yupelri 175 mcg/3 mL solution for nebulization See Rx Instructions .ROUTE .COMPLEX Qty: 30 11RF Dose Instruction: USE 1 VIAL IN NEBULIZER DAILY - DO NOT MIX WITH OTHER NEB MEDS, USE BEFORE OR AFTER Rx Instructions: USE 1 VIAL IN NEBULIZER DAILY - DO NOT MIX WITH OTHER NEB MEDS, USE BEFORE OR AFTER budesonide 0.5 mg/2 mL suspension for nebulization See Rx Instructions .ROUTE .COMPLEX Qty: 60 11RF Dose Instruction: USE 1 VIAL IN NEBULIZER TWICE DAILY - Rinse Mouth After Treatment Rx Instructions: USE 1 VIAL IN NEBULIZER TWICE DAILY - Rinse Mouth After Treatment atorvastatin 80 mg tablet 80 mg PO DAILY Qty: 30 1RF Rx Instructions: MUST have follow-up for further refills ezetimibe [Zetia] 10 mg tablet 10 mg PO DAILY Qty: 30 0RF Rx Instructions: MUST have follow-up for further refills metoprolol succinate 25 mg tablet extended release 24 hr 25 mg PO DAILY@0730 Qty: 30 0RF Rx Instructions: MUST have follow-up for further refills Singulair 10 mg tablet 10 mg PO DAILY Qty: 30 6RF Referrals: Lauri Krishnan MD [Primary Care Provider] - Coding Level of Care Code ED Programmer Numerical Control for Gracie Laguna
[2022-04-29 14:59] LABS: Basophils # 0.1 10^3/uL (0.0-0.1); Basophils % 0.9 %; Eosinophils # 0.1 10^3/uL (0.0-0.8); Eosinophils % 1.9 %; Hematocrit 43.4 % (37.0-47.0); Hemoglobin 14.3 g/dL (11.5-15.3); Lymphocytes # 2.8 10^3/uL (0.8-4.8); Lymphocytes % 41.9 %; Mean Corpuscular HGB Conc 32.9 g/dL (30.0-36.0); Mean Corpuscular Hemoglobin 30.7 pg (28.0-34.0); Mean Corpuscular Volume 93.1 fl (81-99); Mean Platelet Volume 11.6 fL (7.4-10.4); Monocytes # 0.4 10^3/uL (0.2-0.9); Monocytes % 6.2 %; Neutrophils # 3.28 10^3/uL (1.8-7.7); Neutrophils % 48.8 %; Nucleated Red Blood Cells % 0 %; Platelet Count 293 10^3/cmm (130-400); Red Blood Count 4.66 10^6/uL (4.1-5.3); Red Cell Distribution Width 13.7 % (12.1-15.1); White Blood Count 6.7 10^3/uL (4.0-10.0)
[2022-04-29] MEDS: ipratropium-albuterol 3 mL Neb INHALATION (15:14)
[2022-04-29 15:21] LABS: Troponin(5th) Baseline 7 ng/L (0-10)
[2022-04-29 15:30] LABS: Alanine Aminotransferase 9 U/L (0-33); Albumin Level 4.1 g/dL (3.5-5.2); Alkaline Phosphatase 171 U/L (35-105); Aspartate Amino Transferase 9 U/L (0-32); Blood Urea Nitrogen 4 mg/dL (6-20); C Reactive Protein 16.2 mg/L (0.0-4.9); Calcium 9.3 mg/dL (8.5-10.5); Carbon Dioxide 24 mmol/L (22-29); Chloride 104 mmol/L (98-107); Creatinine Clr Calc Pharmacy 97.0081; Globulin 2.7 g/dL (1.3-4.6); Glomerular Filtration Rate 103.4 mL/min (90-130); Glucose 81 mg/dL (65-115); NT Pro B Type Natriuretic Pept 924 pg/mL (0-125); Osmolality Calculated 286 mOsm/kg (285-295); Sodium 140 mmol/L (136-145); Total Bilirubin 0.4 mg/dL (0.15-1.2); Total Protein 6.8 g/dL (6.6-8.7)
[2022-04-29 15:45] LABS: Anion Gap 15.5 (5-19); Potassium 3.5 mmol/L (3.5-5.1)
[2022-04-29] MEDS: benzonatate 100 mg Capsule 200 MG PO (16:09)
== END 2022-04-29 16:11 | disposition home or self-care (01) ==
PROVIDERS: Emergency Provider Student in an Organized Health Care Education/Training Program; PCP Family Medicine
DX: R06.02 Shortness of breath (principal); R05.9 Cough, unspecified; Z79.02 Long term (current) use of antithrombotics/antiplatelets; Z87.891 Personal history of nicotine dependence; I25.10 Atherosclerotic heart disease of native coronary artery without angina pectoris; J44.9 Chronic obstructive pulmonary disease, unspecified; E78.5 Hyperlipidemia, unspecified; I11.0 Hypertensive heart disease with heart failure; I50.9 Heart failure, unspecified
CPT/HCPCS: 71046; 80053; 83735; 83880; 84484; 85025; 86140; 93005; 94640; 96374; 99285; J2930

== ENCOUNTER → 2022-05-01 14:49 | Outpatient (BNVA) | payer MEDICARE, MEDICAID, SELFPAY | PROVIDERS: PCP Family Medicine; Visit Provider Nurse Practitioner Family | DX: I50.23 Acute on chronic systolic (congestive) heart failure (principal); I25.10 Atherosclerotic heart disease of native coronary artery without angina pectoris; I10 Essential (primary) hypertension | CPT/HCPCS: 36415; 80048; 83880; 99213 ==

== ENCOUNTER 2022-05-14 06:00 | Outpatient (CLI) | payer MEDICARE, MEDICAID, SELFPAY ==
[2022-05-14 13:39] LABS: NT Pro B Type Natriuretic Pept 169 pg/mL (0-125)
== END 2022-05-14 06:01 | disposition home or self-care (01) ==
LOC: LAB 05-26 10:27
PROVIDERS: PCP Family Medicine; Visit Provider Family Medicine
DX: I50.31 Acute diastolic (congestive) heart failure (principal)
CPT/HCPCS: 83880

== ENCOUNTER → 2022-05-16 09:48 | Outpatient (BNVA) | payer MEDICARE, MEDICAID, SELFPAY | PROVIDERS: PCP Family Medicine; Visit Provider Nurse Practitioner Family | DX: I11.0 Hypertensive heart disease with heart failure (principal); I50.23 Acute on chronic systolic (congestive) heart failure; J98.11 Atelectasis; R06.02 Shortness of breath; Z87.891 Personal history of nicotine dependence | CPT/HCPCS: 71046; 99214 ==

== ENCOUNTER 2022-05-17 06:41 | Outpatient (CLI) | payer MEDICARE, MEDICAID, SELFPAY ==
--- NOTE | 2022-05-17 07:15 | USCV_ITS ---
Nhung Leone Age: 56 Gender: F : 1965 Exam Date: 05/17/2022 06:55 Ordering Phys: Dulce Robertson Technologist: EVETTE Exam Location: [facility] Indication: HISTORY OF STEMI, SHORTNESS OF BREATH [id number] BP: 114 / 80 HR: 93 Rhythm: Sinus Technical Quality: Adequate MEASUREMENTS (Male / Female) Normal Values 2D ECHO LVOT Diameter 2.0 cm LV Ejection Fraction MOD 2C 54.5 % LV Ejection Fraction 2C AL 56.3 % LA Diameter 1.7 cm LA Width 2.3 cm LA Height 2.8 cm RA Width 2.3 cm RA Height 2.9 cm Aorta at Sinotubular Diameter 2.1 cm IVC Diameter 1.3 cm M-MODE Aortic Annulus Diameter 2.4 cm LA Ao Ratio MM 0.8 MV E Point Septal Separation 0.6 cm DOPPLER AV Peak Velocity 118.0 cm/s LVOT Peak Velocity 103.0 cm/s AV Area Cont Eq vti 2.7 cm squared AV Area Cont Eq pk 2.6 cm squared MV Peak Velocity 106.0 cm/s MV Area PHT 2.6 cm squared Mitral E to A Ratio 0.7 MV E' Velocity 43.0 cm/s Mitral E to MV E' Ratio 10.0 Mitral E to LV E' Lateral Ratio 9.4 Mitral E to LV E' Septal Ratio 10.7 TR Peak Velocity 165.9 cm/s TR Peak Gradient 11.0 mmHg TR Mean Velocity 139.7 cm/s TR Mean Gradient 7.8 mmHg TR Velocity Time Integral 36.7 cm TV Peak E Velocity 36.0 cm/s Right Atrial Pressure 3.0 mmHg Pulmonary Artery Systolic Pressu 14.0 mmHg PV Peak Velocity 97.0 cm/s RV Acceleration Time 0.1 s RV Ejection Time 0.2 s RV AcT/ET 0.6 FINDINGS Left Ventricle Normal left ventricular size and systolic function, EF 55 %. No regional wall motion abnormalities. Grade I/IV diastolic dysfunction (abnormal relaxation filling pattern), normal to mildly elevated filling pressures. Right Ventricle The right ventricle is normal in size and function. Right Atrium The right atrium is normal in size. Left Atrium The left atrium is normal in size. Mitral Valve No gross abnormalities noted Aortic Valve No gross abnormalities noted Tricuspid Valve No gross abnormalities noted Pulmonic Valve No gross abnormalities noted Pericardium No pericardial effusion. Aorta Normal ascending aorta dimension. IVC Normal inferior vena cava. CONCLUSIONS Normal left ventricular size and systolic function, EF 55 %. No regional wall motion abnormalities. Grade I/IV diastolic dysfunction (abnormal relaxation filling pattern), normal to mildly elevated filling pressures. No gross valvular abnormalities noted No intracardiac masses No pericardial effusion. Compared to the study from 11/25/2018, there may not be a significant change Dr Gilmar Malhotra MD FAC (Electronically Signed) Final Date: 17 May 2022 20:15 S
== END 2022-05-17 06:42 | disposition home or self-care (01) ==
LOC: RAD 06:42
PROVIDERS: PCP Family Medicine; Visit Provider Nurse Practitioner Family
DX: I50.23 Acute on chronic systolic (congestive) heart failure (principal); I25.10 Atherosclerotic heart disease of native coronary artery without angina pectoris; I25.2 Old myocardial infarction
CPT/HCPCS: 93306

== ENCOUNTER → 2022-06-19 14:11 | Outpatient (BNVA) | payer MEDICARE, MEDICAID, SELFPAY | PROVIDERS: PCP Family Medicine; Visit Provider Internal Medicine Pulmonary Disease | DX: R06.02 Shortness of breath (principal); J43.9 Emphysema, unspecified; I21.09 ST elevation (STEMI) myocardial infarction involving other coronary artery of anterior wall; J30.9 Allergic rhinitis, unspecified; Z87.891 Personal history of nicotine dependence | CPT/HCPCS: 99214 ==

== ENCOUNTER → 2022-06-21 11:03 | Outpatient (BNVA) | payer MEDICARE, MEDICAID, SELFPAY | PROVIDERS: PCP Family Medicine; Visit Provider Internal Medicine Cardiovascular Disease | DX: I25.119 Atherosclerotic heart disease of native coronary artery with unspecified angina pectoris (principal); I11.0 Hypertensive heart disease with heart failure; I50.9 Heart failure, unspecified; E78.2 Mixed hyperlipidemia; J45.50 Severe persistent asthma, uncomplicated; G47.33 Obstructive sleep apnea (adult) (pediatric); Z99.89 Dependence on other enabling machines and devices; Z87.891 Personal history of nicotine dependence | CPT/HCPCS: 99214 ==

== ENCOUNTER 2022-09-15 18:25 | Emergency (ER) | payer MEDICARE, MEDICAID, SELFPAY ==
[2022-09-15 18:26] VITALS: BP 135/94; PULSE 104; RESP 19; TEMP 36.7; O2SAT 94; BMI 21.6
--- NOTE | 2022-09-15 19:49 | XRR_ITS ---
PROCEDURE INFORMATION: Exam: XR Left Wrist Exam date and time: 09/15/2022 7:54 PM Age: 57 years old Clinical indication: Injury or trauma; Fall; Blunt trauma (contusions or hematomas); Wrist; Left TECHNIQUE: Imaging protocol: Radiologic exam of the left wrist. Views: 3 or more views. COMPARISON: No relevant prior studies available. FINDINGS: Bones/joints: Comminuted distal radial fracture with mild dorsal angulation. Ulnar styloid avulsion fracture noted. Soft tissues: Soft tissue swelling around the wrist. XR/XR wrist LT min 3V* [id number] IMPRESSION: Comminuted distal radial fracture with mild dorsal angulation. Ulnar styloid avulsion fracture.
--- NOTE | 2022-09-15 19:53 | ED_ITS ---
HPI - Extremity Problem General: Chief complaint: Extremity Injury, Upper Stated complaint: left wrirst injury, fall Time Seen by Provider: 09/15/22 19:50 History of Present Illness: 57-year-old female went skating this afternoon and fell catching herself with outstretched arm. Patient reports pain and discomfort to the left wrist. Patient appears nontoxic. Patient appears in moderate pain. Patient does have a history of chronic pain, CHF, NE, coronary artery disease, and hypertension. Associated symptoms: Deny chest pain or fever(s) Review of Systems General: Reports: 10 or more systems reviewed and unremarkable except in HPI and below Const: Denies: fever(s) Card: Denies: chest pain Resp: Denies: dyspnea GI: Denies: nausea or vomiting Musc: Reports: extremity pain (Left wrist) PFS ED PFSH: Medical History Acute exacerbation of CHF (congestive heart failure) Asthma -severe persistent, started xolair 02/04/2020 -follow up with Dr. West CAD (coronary artery disease) (~12/2019) -Known history of CAD with recent stenting of LAD due to anterior wall STEMI in December -Follows up with Dr. Salcedo; f/u in [address] Bass Chronic post-traumatic stress disorder Chronic radicular lumbar pain COPD (chronic obstructive pulmonary disease) -no acute exacerbation -does not appear to be oxygen dependent at baseline -recently restarted smoking, 1/2 PPD Essential (primary) hypertension -VSS; continue to monitor -continue oral antihypertensives Generalized anxiety disorder GERD (gastroesophageal reflux disease) -on PPI Herniated disc Hyperlipidemia Lesion of ulnar nerve, bilateral Major depressive disorder, 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 New onset of congestive heart failure -Could be secondary to recent STEMI requiring intervention with stenting of LAD last month -Echo: EF=57%, normal systolic and diastolic function, no RWMA, trace TR, trace CT -has been on IV diuresis with Lasix; switched to oral lasix -Continue to monitor electrolytes and renal function -Daily weights, monitor ins and outs -BNP elevated at 948 -Chest x-ray reported as unremarkable -Close monitoring of respiratory status, supplemental oxygen as needed Normocytic anemia -Seems to have intermittent normocytic anemia with a baseline hemoglobin of about 10-11, intermittently normal -Has been on dual antiplatelet therapy given recent stenting -Continue to monitor H&H closely; stable so far -iron and ferritin low; start on iron replacement KRISTOFER on CPAP Psychiatric care Sleep apnea, unspecified Surgical History H/O bilateral oophorectomy H/O skin graft History of carpal tunnel release History of cholecystectomy Presence of stent in LAD coronary artery (01/23/20) S/P section Family History Father Myocardial infarct, Onset Age: 45 Brother Myocardial infarct, Onset Age: 53 Other CAD (coronary artery disease) Social History Smoking and tobacco status: former smoker Quit status (tobacco): has quit using tobacco Year quit tobacco: 2019 - 1PPD x 30 Years Second hand smoke exposure: Yes Alcohol intake: former Lives independently: Yes Household members: family Marital status: Current occupational status: disabled Current gender identity: Female Physical Exam Const: COMMON NORMALS: alert HENMT: COMMON NORMALS: normocephalic HEAD & SCALP: normocephalic THROAT: posterior oropharynx normal Neck/C-Spine: COMMON NORMALS: full ROM Resp: COMMON NORMALS: normal respiratory effort and clear to auscultation bilaterally AUSCULTATION: clear to auscultation bilaterally Cardio: COMMON NORMALS: regular rate RATE: regular rate Extremity: COMMON NORMALS: normal to inspection LEFT UPPER EXTREMITY: Yes wrist (Swelling noted to the wrist, pulses and sensation intact) Left wrist: Yes inspection, Yes palpation and Yes ROM Neuro: SENSORIUM/ORIENTATION: Yes alert Skin: COMMON NORMALS: turgor normal GENERAL SKIN EXAM: turgor normal Course Vital Signs: Vital signs: Vital Signs Temperature 98.0 F 09/15/22 18:26 Pulse Rate 104 H 09/15/22 18:26 Respiratory Rate 19 H 09/15/22 18:26 Blood Pressure 135/94 09/15/22 18:26 Pulse Oximetry 94 09/15/22 18:26 Oxygen Delivery Me thod 09/15/22 18:26 MDM - Extremity (Nontraumatic) Medical Decision Making Patient comes in for evaluation of injury to the left wrist. On exam patient has tenderness and swelling to the joint line of the left wrist. Distal cap refill and sensation is intact. Differential diagnosis includes fracture, sprain, dislocation. X-ray notes a distal fracture of the radius and ulnar styloid fracture. Patient was placed into a Ortho-Glass short arm splint. Sling for comfort. Patient was given 1 hydrocodone in the ER for pain. Patient has pain medications at home. Patient will follow-up with orthopedic surgeon for further evaluation and treatment. Patient reported understanding and agreed to plan. Lab Data Radiology Impressions Wrist X-Ray 09/15/22 19:49 IMPRESSION: Comminuted distal radial fracture with mild dorsal angulation. Ulnar styloid avulsion fracture. Discharge Plan Discharge Patient Disposition: Home Clinical Impression: Closed fracture distal radius and ulna Qualifiers: Encounter type: initial encounter Laterality: left Qualified Code(s): S52.502A - Unspecified fracture of the lower end of left radius, initial encounter for closed fracture Condition: Stable Prescriptions: No Action albuterol sulfate 2.5 mg /3 mL (0.083 %) solution for nebulization 2.5 mg INHALATION QID@07,12,16,20 oxycodone-acetaminophen 7.5-325 mg tablet 1 tab PO Q8H PRN (Reason: Pain) methadone 5 mg tablet 5 mg PO BID ropinirole 0.5 mg tablet 0.5 mg PO BID Qty: 180 2RF Rx Instructions: Take one tablet twice per day nitroglycerin 0.4 mg tablet, sublingual 0.4 mg SUBLINGUAL Q5M PRN (Reason: chest pain) Qty: 25 6RF Rx Instructions: do not exceed 3 doses per episode fluoxetine [Prozac] 40 mg capsule 40 mg PO QAM Qty: 90 2RF Rx Instructions: Take one capsule every morning azelastine 137 mcg (0.1 %) aerosol,spray 1 spray INTRANASAL BID@0700,2200 30 Days Qty: 30 4RF Rx Instructions: administer into each nostril albuterol sulfate [ProAir HFA] 90 mcg/actuation HFA aerosol inhaler 2 puff INHALATION Q6H PRN (Reason: Shortness Of Breath Or Wheezing) Qty: 8.5 3RF epinephrine [EpiPen Jr 2-Guille] 0.15 mg/0.3 mL auto-injector 0.15 mg IM Q30M PRN (Reason: anaphylaxis) Qty: 2 1RF Rx Instructions: do not exceed 12 doses per 24 hrs codeine-guaifenesin 10-200 mg/5 mL liquid 5 ml PO Q6H PRN (Reason: cough) Qty: 200 0RF benzonatate 100 mg capsule 100 mg PO TID PRN (Reason: cough) Qty: 42 0RF prednisone 5 mg tablet 5 mg PO .COMPLEX Qty: 30 3RF Rx Instructions: 5 mg PO Every other day; take at 729 Flonase Allergy Relief 50 mcg/actuation spray,suspension 1 spray INTRANASAL BID@ Qty: 15.8 3RF Rx Instructions: administer into each nostril Perforomist 20 mcg/2 mL solution for nebulization See Rx Instructions .ROUTE .COMPLEX Qty: 60 11RF Dose Instruction: USE 1 VIAL IN NEBULIZER EVERY 12 HOURS - Morning and Evening Rx Instructions: USE 1 VIAL IN NEBULIZER EVERY 12 HOURS - Morning and Evening Yupelri 175 mcg/3 mL solution for nebulization See Rx Instructions .ROUTE .COMPLEX Qty: 30 11RF Dose Instruction: USE 1 VIAL IN NEBULIZER DAILY - DO NOT MIX WITH OTHER NEB MEDS, USE BEFORE OR AFTER Rx Instructions: USE 1 VIAL IN NEBULIZER DAILY - DO NOT MIX WITH OTHER NEB MEDS, USE BEFORE OR AFTER budesonide 0.5 mg/2 mL suspension for nebulization See Rx Instructions .ROUTE .COMPLEX Qty: 60 11RF Dose Instruction: USE 1 VIAL IN NEBULIZER TWICE DAILY - Rinse Mouth After Treatment Rx Instructions: USE 1 VIAL IN NEBULIZER TWICE DAILY - Rinse Mouth After Treatment Xolair 150 mg/mL syringe 300 mg SUBCUT .[id number] Qty: 4 6RF Rx Instructions: GEORGE# [id number] approved through 06/30/22 furosemide 40 mg tablet 40 mg PO DAILY Qty: 90 1RF potassium chloride 20 mEq tablet extended release 20 meq PO DAILY Qty: 90 1RF ezetimibe 10 mg tablet 10 mg PO DAILY Qty: 90 1RF atorvastatin 80 mg tablet 80 mg PO DAILY Qty: 90 1RF clopidogrel 75 mg tablet 75 mg PO DAILY@0730 Qty: 90 1RF losartan 25 mg tablet 25 mg PO DAILY Qty: 90 1RF metoprolol succinate 25 mg tablet extended release 24 hr 25 mg PO DAILY@0730 Qty: 90 1RF pantoprazole 40 mg tablet,delayed release (DR/EC) 40 mg PO BID Qty: 90 2RF Singulair 10 mg tablet 10 mg PO DAILY Qty: 90 1RF Discharge Orders: Discharge ED (Routine); Ordered 09/15/22 Ordered By: David Michele Referrals: Lauri Krishnan MD [Primary Care Provider] - Discharge Diet: Usual diet Discharge Activity: Increase activity as tolerated Patient Instructions: Wrist Fracture in Adults (ED) Activity Restrictions/Additional Instructions: Keep splint clean and dry. Use sling for comfort. Use acetaminophen and ibuprofen for pain. Continue with routine medications for pain as directed. Use ice packs for further pain relief. Follow-up with primary care as needed. human resources talent manager will contact you with follow-up appointment for orthopedic surgeon. Coding Level of Care Code ED Photovoltaic Technician for Gracie Laguna
[2022-09-15] MEDS: HYDROcodone-acetaminophen 10-325 mg Tablet 1 TAB PO (20:04)
--- NOTE | 2022-09-17 09:26 | DCPLANNER ---
Addendum entered by Rosa Renteria 09/19/22 08:40: Patient had a follow up appointment scheduled with ortho - patient did attend appointment Addendum entered by Rosa Renteria 09/18/22 08:20: Patient has a follow up appointment scheduled for Sunday, September 18, 2022 at 3:30 at ortho. Clinic will call patient with appointment information. Original Note: manager of revenue had message to schedule a follow up appointment for patient with ortho. manager of revenue sent patients information to the front office staff at ortho. Patients information will be printed and reviewed. Clinic will call patient with appointment information.
== END 2022-09-15 20:39 | disposition home or self-care (01) ==
PROVIDERS: Emergency Provider Nurse Practitioner Family; PCP Family Medicine
DX: S52.502A Unspecified fracture of the lower end of left radius, initial encounter for closed fracture (principal); S52.612A Displaced fracture of left ulna styloid process, initial encounter for closed fracture; I11.0 Hypertensive heart disease with heart failure; I50.9 Heart failure, unspecified; I25.10 Atherosclerotic heart disease of native coronary artery without angina pectoris; I25.2 Old myocardial infarction; J45.909 Unspecified asthma, uncomplicated; J44.9 Chronic obstructive pulmonary disease, unspecified; E78.5 Hyperlipidemia, unspecified; Z87.891 Personal history of nicotine dependence; W18.39XA Other fall on same level, initial encounter; Y93.21 Activity, ice skating
CPT/HCPCS: 73110; 99283

== ENCOUNTER → 2022-09-18 15:42 | Outpatient (BNVA) | payer MEDICARE, MEDICAID, SELFPAY | PROVIDERS: PCP Family Medicine; Referring Provider Nurse Practitioner Family; Visit Provider Physician Assistant | DX: S52.502A Unspecified fracture of the lower end of left radius, initial encounter for closed fracture (principal); S52.602A Unspecified fracture of lower end of left ulna, initial encounter for closed fracture; X58.XXXA Exposure to other specified factors, initial encounter | CPT/HCPCS: 73110 ==

== ENCOUNTER 2022-09-18 16:27 | Outpatient (CLI) | payer MEDICARE, MEDICAID, SELFPAY | END 2022-09-18 16:28 | disposition home or self-care (01) | LOC: SPT 16:27 | PROVIDERS: PCP Family Medicine; Visit Provider Physician Assistant | DX: Z46.89 Encounter for fitting and adjustment of other specified devices (principal); S52.592D Other fractures of lower end of left radius, subsequent encounter for closed fracture with routine healing; S52.692D Other fracture of lower end of left ulna, subsequent encounter for closed fracture with routine healing; X58.XXXD Exposure to other specified factors, subsequent encounter | CPT/HCPCS: 97760; 99203; L3982 ==

== ENCOUNTER 2022-09-26 08:24 | Outpatient (CLI) | payer MEDICARE, MEDICAID, SELFPAY ==
--- NOTE | 2022-09-26 08:35 | MR_ITS ---
WS: [id number] MRI LUMBAR SPINE NONCONTRAST HISTORY: LUMBAR DISC DISEASE, RADICULOPATHY, LEFT leg radiculopathy. COMPARISON: 04/10/2021 TECHNIQUE: Sagittal and axial multisequence imaging is submitted. Very mild straightening and curvature of the lumbar spine. Similar to the prior study. Moderate disc space narrowing and desiccation most significant at L4-5 and L5-S1. Benign hemangioma w ithin L3. Reactive marrow edema along the endplates of L4 and L5. No acute fracture. Conus terminates normally at L1-2 disc level. L1-L2: Normal. L2-L3: Minimal disc bulging. Mild facet arthritis. No stenosis. L3-L4: Diffuse annular disc bulging with osteophytic ridging and facet arthritis. Small central disc protrusion. Impingement of the subarticular recesses bilaterally and the traversing L4 nerve roots. B ilateral subarticular recess narrowing is progressed slightly. Mild bilateral foraminal and central s tenosis. L4-L5: Mild annular disc bulging with ligamentum flavum and facet arthritis. Nerve roots are slightly clumped within the thecal sac. Mild narrowing of the subarticular recesses, LEFT greater than RIGHT. Mild LEFT foraminal stenosis similar to the prior study. L5-S1: Mild annular disc bulging with a central disc protrusion. Central disc protrusion has slightly increased in size since the prior study with mild impingement upon the S1 nerve roots. Mild bilatera l foraminal stenosis. RIGHT greater than LEFT. Paravertebral soft tissues are negative. MR/MR lumbar spine wo con* [id number] IMPRESSION: 1. Minimal progression of degenerative disc disease and stenoses since 021. 2. Diffuse disc bulging with a central disc protrusion at L3-4. Mild bilateral subarticular recess narrowing and encroachment has slightly progressed since t he prior study. There is also mild bilateral foraminal central stenosis which i s stable at L3-4. 3. Mild bilateral subarticular recess stenosis at L4-5, LEFT greater than RIGH T with mild LEFT foraminal stenosis. Similar to the prior study. 4. Increase in size of the central disc protrusion at L5-S1 with slight progre ssion of encroachment upon the S1 nerve roots. Mild bilateral foraminal stenosi s, RIGHT greater than LEFT at L5-S1 is stable. 5. No acute fracture.
== END 2022-09-26 08:25 | disposition home or self-care (01) ==
LOC: RAD 08:28
PROVIDERS: PCP Family Medicine; Visit Provider General Practice
DX: M51.16 Intervertebral disc disorders with radiculopathy, lumbar region (principal); M51.26 Other intervertebral disc displacement, lumbar region; M48.061 Spinal stenosis, lumbar region without neurogenic claudication; M51.27 Other intervertebral disc displacement, lumbosacral region
CPT/HCPCS: 72148

== ENCOUNTER → 2022-10-02 13:53 | Outpatient (BNVA) | payer MEDICARE, MEDICAID, SELFPAY | PROVIDERS: PCP Family Medicine; Visit Provider Physician Assistant | DX: S52.502A Unspecified fracture of the lower end of left radius, initial encounter for closed fracture (principal); S52.602A Unspecified fracture of lower end of left ulna, initial encounter for closed fracture; W19.XXXA Unspecified fall, initial encounter | CPT/HCPCS: 73110; 99213 ==

== ENCOUNTER 2022-10-17 10:38 | Observation (INO) | payer MEDICARE, MEDICAID, SELFPAY ==
[2022-10-17] VITALS (14 sets, daily range): BP systolic 92–126; BP diastolic 61–85; PULSE 70–105; RESP 15–21; TEMP 36.6–36.8; O2SAT 91–97; BMI 21.6
[2022-10-17 12:16] LABS: Basophils # 0.1 10^3/uL (0.0-0.1); Basophils % 0.7 %; Eosinophils # 0.1 10^3/uL (0.0-0.8); Eosinophils % 1.2 %; Hematocrit 46.2 % (37.0-47.0); Hemoglobin 15.7 g/dL (11.5-15.3); Lymphocytes # 3.4 10^3/uL (0.8-4.8); Lymphocytes % 34.8 %; Mean Corpuscular Hemoglobin 30.4 pg (28.0-34.0); Mean Corpuscular Volume 89.4 fl (81-99); Mean Platelet Volume 10.9 fL (7.4-10.4); Monocytes # 0.7 10^3/uL (0.2-0.9); Monocytes % 7.1 %; Neutrophils % 55.9 %; Nucleated Red Blood Cells % 0 %; Platelet Count 311 10^3/cmm (130-400); Red Blood Count 5.17 10^6/uL (4.1-5.3); Red Cell Distribution Width 12.6 % (12.1-15.1); White Blood Count 9.9 10^3/uL (4.0-10.0)
[2022-10-17 12:36] LABS: Alanine Aminotransferase 6 U/L (0-33); Albumin Level 4.3 g/dL (3.5-5.2); Alkaline Phosphatase 139 U/L (35-105); Anion Gap 15.6 (5-19); Aspartate Amino Transferase 10 U/L (0-32); Blood Urea Nitrogen 6 mg/dL (6-20); Calcium 9.3 mg/dL (8.5-10.5); Carbon Dioxide 34 mmol/L (22-29); Chloride 89 mmol/L (98-107); Creatinine Clr Calc Pharmacy 80.8901; Globulin 3.3 g/dL (1.3-4.6); Glomerular Filtration Rate 86.2 mL/min (90-130); Glucose 75 mg/dL (65-115); Osmolality Calculated 278 mOsm/kg (285-295); Sodium 136 mmol/L (136-145); Total Bilirubin 0.6 mg/dL (0.15-1.2); Total Protein 7.6 g/dL (6.6-8.7)
[2022-10-17 12:40] LABS: Potassium 2.6 mmol/L (3.5-5.1)
--- NOTE | 2022-10-17 12:47 | XR_ITS ---
WS: [id number] Portable AP upright chest, 10/17/2022 Clinical Data: dyspnea/cough Comparison: PA and lateral chest, 05/16/2022 Findings: No nodules, masses or effusions are seen. The heart is normal. The pulmonary vascularity is not increased. No pneumonia or pneumothorax is seen. The diaphragms are flattened. There may be a sm all hiatal hernia. XR/XR chest 1V portable [id number] Impression: Hyperinflation.
--- NOTE | 2022-10-17 12:47 | ECG_ITS ---
[facility] Test Date: 2022-10-17 Pat Name: Nhung Leone Department: Room: Gender: Female [employer] Registrar: : [id number] Requested By: Aj Crockett Order Number: [id number] Apoorva MD: Navi Maldonado M.D. Measurements Intervals [place] Rate: 81 P: 80 OK: 176 QRS: 95 QRSD: 92 T: 84 QT: 396 QTc: 461 Interpretive Statements SINUS RHYTHM WITH OCCASIONAL VENTRICULAR PREMATURE COMPLEXES BORDERLINE RIGHT AXIS DEVIATION [QRS AXIS > 90] MINIMAL ST DEPRESSION [0.025+ mV ST DEPRESSION] Compared to ECG 04/29/2022 14:15:52 Ventricular premature complex(es) now present Sinus arrhythmia no longer present ST (T wave) deviation still present Electronically Signed On 10-17-2022 14:48:32 CDT by Navi Maldonado M.D. [id number]
--- NOTE | 2022-10-17 12:47 | ED_ITS ---
HPI - Recheck/Abnormal Lab/Rx General: Chief Complaint: Recheck/Abnormal Lab/Rx Stated Complaint: Eulogio sent for extremely low K Time Seen by Provider: 10/17/22 12:42 Source: patient Mode of arrival: ambulatory History of Present Illness: 57-year-old female presents emergency room directed by her primary care physician. She had recently been seen was hypokalemic it adjusted her medications despite this she had gone from a potassium of 7 2.7-2.4 in the last 2 weeks. He checked a magnesium level that was also normal. He had added spironolactone. Despite all these interventions her potassium continues to decrease. She has not had any nausea vomiting or diarrhea but she has had significant decrease in oral intake. Recently was an anniversary of the loss of her son she gets very depressed and basically just stops having any significant p.o. intake. When this happens she has become hypokalemic before. MD complaint: abnormal lab Initial visit (ago): day(s) Review of Systems Const: Denies: fever(s), chills, body aches, change in appetite, fatigue or malaise ENMT: Denies: throat pain, ear or mastoid pain, nasal discharge or nasal congestion Card: Denies: chest pain, edema, dyspnea on exertion or orthopnea Resp: Reports: dyspnea, productive cough and wheezing; Denies: non-productive cough GI: Denies: abdominal pain, nausea, vomiting, hematemesis, coffee ground emesis, diarrhea, constipation, bloating, hematochezia or melena : Denies: flank pain, difficulty voiding, dysuria, urinary frequency or urinary urgency Skin/Breast: Denies: rash or pruritus [facility] ED PFSH: Medical History (Updated 10/18/22 @ 07:30 by Aj Hernandez DO) Acute anterior wall NC Acute exacerbation of CHF (congestive heart failure) Asthma -severe persistent, started xolair 02/04/2020 -follow up with Dr. West CAD (coronary artery disease) (~12/2019) -Known history of CAD with recent stenting of LAD due to anterior wall STEMI in December -Follows up with Dr. Salcedo; f/u in [address] 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 New onset of congestive heart failure -Could be secondary to recent STEMI requiring intervention with stenting of LAD last month -Echo: EF=57%, normal systolic and diastolic function, no RWMA, trace TR, trace [place] -has been on IV diuresis with Lasix; switched to oral lasix -Continue to monitor electrolytes and renal function -Daily weights, monitor ins and outs -BNP elevated at 948 -Chest x-ray reported as unremarkable -Close monitoring of respiratory status, supplemental oxygen as needed Normocytic anemia -Seems to have intermittent normocytic anemia with a baseline hemoglobin of about 10-11, intermittently normal -Has been on dual antiplatelet therapy given recent stenting -Continue to monitor H&H closely; stable so far -iron and ferritin low; start on iron replacement KRISTOFER on CPAP Psychiatric care Severe persistent asthma Sleep apnea, unspecified Surgical History (Updated 10/17/22 @ 14:40 by Parth Edwards MD) H/O bilateral oophorectomy H/O oral surgery H/O skin graft History of carpal tunnel release History of cholecystectomy Presence of stent in LAD coronary artery (01/23/20) S/P section Family History Father Myocardial infarct, Onset Age: 45 Brother Myocardial infarct, Onset Age: 53 Other CAD (coronary artery disease) Social History Smoking and tobacco status: former smoker Quit status (tobacco): has quit using tobacco Year quit tobacco: 2020 - 1PPD x 30 Years Second hand smoke exposure: Yes Alcohol intake: former Lives independently: Yes Household members: family Marital status: Current occupational status: disabled Current gender identity: Female Physical Exam Const: COMMON NORMALS: no acute distress GENERAL APPEARANCE: cooperative and comfortable ORIENTATION/CONSCIOUSNESS: Yes awake, Yes oriented to person, Yes oriented to place and Yes oriented to time HENMT: COMMON NORMALS: normocephalic, atraumatic and hearing grossly normal bilaterally HEAD & SCALP: normocephalic and atraumatic Resp: COMMON NORMALS: normal respiratory effort, No retractions, No use of accessory muscles and clear to auscultation bilaterally AUSCULTATION: clear to auscultation bilaterally Cardio: COMMON NORMALS: regular rate, regular rhythm and No murmurs present (Cardio) RATE: regular rate RHYTHM: regular rhythm GI: COMMON NORMALS: Soft to palpation and No hepatosplenomegaly present AUSCULTATION: Yes normoactive bowel sounds PALPATION: Yes Soft to palpation, No Tenderness to palpation present (GI), No Guarding due to palpation present (GI) and Yes No hepatosplenomegaly present Extremity: COMMON NORMALS: normal to inspection, capillary refill normal, no clubbing, cyanosis or edema, no calf tenderness and no pedal edema Neuro: SENSORIUM/ORIENTATION: Yes oriented to person, Yes oriented to place and Yes oriented to time Skin: COMMON NORMALS: no rashes or lesions noted GENERAL SKIN EXAM: no rashes or lesions noted Course Vital Signs: Vital signs: Vital Signs Temperature 97.5 F L 10/18/22 04:00 Pulse Rate 73 10/18/22 04:00 Respiratory Rate 18 10/18/22 04:00 Blood Pressure 92/64 10/18/22 04:00 Pulse Oximetry 93 10/18/22 04:00 Oxygen Delivery Me thod Room Air 10/18/22 04:00 MDM - Recheck/Abnormal Lab/Rx Medical Decision Making Patient severely hyperkalemic in addition she has exacerbation of her COPD. She is given potassium supplement also given steroids and nebulizers which helped her breathing significantly. We will admit the patient for IV potassium supplementation additionally consider psychiatric consultation for depression that induces these episodes. Discussed Dr. Edwards orders written Medical Records I reviewed the patient's medical records. Lab Data I reviewed the patient's lab results. 10/17/22 12:07 10/17/22 14:43 Radiology Impressions Chest X-Ray 10/17/22 12:47 Impression: Hyperinflation. Chest CT 10/17/22 15:14 IMPRESSION: 1. No acute cardiopulmonary process. 2. Mild centrilobular and paraseptal emphysematous changes in the upper lobes are stable. 3. Incidental/nonacute findings are listed in the report. COMMENTS: In the absence of a history or active diagnosis of lung cancer, it is recommended that this patient with emphysema be evaluated for enrollment in a low dose CT lung cancer screening program. Laboratory Results WBC 9.9 10^3/uL (4.0-10.0) 10/17/22 12:07 RBC 5.17 10^6/uL (4.1-5.3) 10/17/22 12:07 Hgb 15.7 g/dL (11.5-15.3) H 10/17/22 12:07 Hct 46.2 % (37.0-47.0) 10/17/22 12:07 MCV 89.4 fl (81-99) 10/17/22 12:07 MCH 30.4 pg (28.0-34.0) 10/17/22 12:07 MCHC 34.0 g/dL (30.0-36.0) 10/17/22 12:07 RDW 12.6 % (12.1-15.1) 10/17/22 12:07 Plt Count 311 10^3/cmm (130-400) 10/17/22 12:07 MPV 10.9 fL (7.4-10.4) H 10/17/22 12:07 Neut % (Auto) 55.9 % 10/17/22 12:07 Lymph % (Auto) 34.8 % 10/17/22 12:07 [place] % (Auto) 7.1 % 10/17/22 12:07 Eos % (Auto) 1.2 % 10/17/22 12:07 Baso % (Auto) 0.7 % 10/17/22 12:07 Neut # (Auto) 5.50 10^3/uL (1.8-7.7) 10/17/22 12:07 Lymph # (Auto) 3.4 10^3/uL (0.8-4.8) 10/17/22 12:07 [place] # (Auto) 0.7 10^3/uL (0.2-0.9) 10/17/22 12:07 Eos # (Auto) 0.1 10^3/uL (0.0-0.8) 10/17/22 12:07 Baso # (Auto) 0.1 10^3/uL (0.0-0.1) 10/17/22 12:07 Nucleated RBC % (auto) 0 % 10/17/22 12:07 Nucleated RBCs # 0.0 /100WBC 10/17/22 12:07 D-Dimer 1.09 ug/mIFEU (0-0.59) H 10/17/22 14:43 Sodium 137 mmol/L (136-145) 10/17/22 14:43 Potassium 2.9 mmol/L (3.5-5.1) L 10/17/22 14:43 Chloride 92 mmol/L (98-107) L 10/17/22 14:43 Carbon Dioxide 33 mmol/L (22-29) H 10/17/22 14:43 Anion Gap 14.9 (5-19) 10/17/22 14:43 BUN 6 mg/dL (6-20) 10/17/22 14:43 Creatinine 0.6 mg/dL (0.5-0.9) 10/17/22 14:43 GFR Calculation 103.0 mL/min (90-130) 10/17/22 14:43 Glucose 89 mg/dL (65-115) 10/17/22 14:43 Calculated Osmolality 281 mOsm/kg (285-295) L 10/17/22 14:43 Calcium 9.2 mg/dL (8.5-10.5) 10/17/22 14:43 Magnesium 1.9 mg/dL (1.7-2.3) 10/17/22 11:36 Iron 52 ug/dL (37-145) 10/17/22 14:43 TIBC 220 mcg/dl 10/17/22 14:43 % Saturation 23.6 % (20-50) 10/17/22 14:43 Unsat Iron Binding 168 ug/dL (112-347) 10/17/22 14:43 Total Bilirubin 0.6 mg/dL (0.15-1.2) 10/17/22 12:07 AST 10 U/L (0-32) 10/17/22 12:07 ALT 6 U/L (0-33) 10/17/22 12:07 Alkaline Phosphatase 139 U/L (35-105) H 10/17/22 12:07 NT-Pro-B Natriuret Pep 290 pg/mL (0-125) H 10/17/22 11:36 Total Protein 7.6 g/dL (6.6-8.7) 10/17/22 12:07 Albumin 4.3 g/dL (3.5-5.2) 10/17/22 12:07 Globulin 3.3 g/dL (1.3-4.6) 10/17/22 12:07 Vitamin B12 393 pg/mL (232-1245) 10/17/22 14:43 Folate 8.6 ng/mL (4.8-37.3) 10/17/22 14:43 Procalcitonin 0.04 ng/mL (0-0.5) 10/17/22 14:43 TSH 0.50 uIU/mL (0.27-4.20) 10/17/22 14:43 Discharge Plan Discharge Patient Disposition: Admitted As Inpatient Admit Provider: Parth Edwards Clinical Impression: Hypokalemia, Major depressive disorder, recurrent severe without psychotic f eatures, Acute exacerbation of chronic obstructive pulmonary disease Condition: Stable Coding Level of Care Code ED Electro Optics Engineer for Gracie aLguna
[2022-10-17] MEDS: ipratropium-albuterol 3 mL Neb INHALATION ×2 (13:13→20:44)
[2022-10-17] MEDS: sodium chloride 0.9% 1,000 ML 75 ML IV (13:28)
[2022-10-17 13:31] LABS: NT Pro B Type Natriuretic Pept 290 pg/mL (0-125)
[2022-10-17] MEDS: potassium chloride premix 100 ML 25 MEQ IV ×2 (13:39→17:18)
[2022-10-17 14:08] LABS: Magnesium 1.9 mg/dL (1.7-2.3)
--- NOTE | 2022-10-17 14:34 | PM.HP ---
Providers/Chief Complaint Primary Care Provider: Lauri Krishnan MD Chief Complaint: Eulogio sent for extremely low K History of Present Illness Nhung Leone is a 57 year old female with past medical history of CAD post PCI to LAD, heart failure with preserved action fraction, hypertension, former smoker, obstructive sleep apnea on BiPAP, asthma presented to the ER from primary care's office today because of persistent hypokalemia refractory to oral treatment as an outpatient. Currently patient has been taking potassium 60 mg twice daily. Denies any vomiting, diarrhea but does complain of nausea, muscle aches and weakness which has been ongoing for last 1 week. Also complains of increased difficulty in breathing on exertion for over 2 weeks along with cough. Patient states she is more depressed than usual currently because this is the anniversary of her son's . Denies any suicidal or homicidal ideation. Takes Lasix 40 mg oral daily. Denies any swelling in the legs, chest pain, palpitations. Blood work in the ER showed a white count 9.9, hemoglobin of 15.7, sodium of 136 and potassium of 2.6, creatinine 0.7, proBNP of 290. Patient has been ordered for 120 mg of potassium Review of Systems General: Reports: 10 or more systems reviewed and unremarkable except in HPI and below Const: Denies: fever(s), chills, body aches, change in appetite, change in weight, malaise, night sweats, diaphoresis, change in sleep pattern, daytime sleepiness or snoring Eyes: Denies: change in vision, blurry vision, photophobia, eye discomfort or eye discharge ENMT: Denies: throat pain, enlarged tonsils, hoarseness, mouth pain, oral sores, dry mouth, tinnitus, nasal congestion or post nasal drip Card: Denies: chest pain, palpitations, irregular heart rhythm, edema, swelling of feet/ankles, lightheadedness, syncope, pre-syncope, dyspnea on exertion, orthopnea, leg pain with exertion or acrocyanosis Resp: Denies: dyspnea, productive cough, non-productive cough, wheezing, stridor, pain on inspiration, change in phlegm color, hemoptysis or chest congestion GI: Denies: abdominal pain, nausea, vomiting, hematemesis, coffee ground emesis, dysphagia, heartburn, diarrhea, constipation, bloating, GI cramping, change in bowel habits, pain on defecation, hematochezia or melena : Denies: flank pain, dysuria, urinary frequency, urinary urgency, urinary hesitancy, nocturia or hematuria Musc: Denies: neck pain, back pain, extremity pain, joint pain, joint swelling, joint redness, joint stiffness or limited range of motion Neuro: Denies: headache(s), numbness in extremities, weakness in extremities, sensory changes, lack of coordination, difficulty walking, frequent falls, dizziness, vertigo, confusion, Slurred speech present, difficulty communicating thoughts or seizure-like activity Psych: Denies: anxiety, depression, mood swings, panic attacks, hopelessness or irritability Endo: Denies: polyuria, polydipsia, tired all the time, cold intolerance, excessive sweating, flushing or heat intolerance Keith/Lymph: Denies: easy bruising or easy bleeding All/Imm: Denies: tongue swelling, facial swelling or acute wheezing Medications/Allergies Home Medications Medication Instructions Recorded Confirmed Last Taken Type albuterol sulfate 2.5 mg/3 mL 2.5 mg inhalation QID@07,12,16,20 10/05/19 10/02/22 11/14/21 History (0.083 %) solution for nebulization prednisone 5 mg tablet 5 mg PO .COMPLEX #30 tabs 02/27/21 10/02/22 11/14/21 Rx fluticasone propionate 50 1 spray intranasal BID@ #15.8 10/09/21 10/02/22 11/14/21 Rx mcg/actuation nasal mL spray,suspension (Flonase Allergy Relief) oxycodone-acetaminophen 7.5 mg-325 1 tab PO Q8H PRN Pain 10/24/21 10/02/22 11/14/21 History mg tablet fluoxetine 40 mg capsule (Prozac) 40 mg PO QAM #90 caps 11/23/21 10/02/22 Unknown Rx ropinirole 0.5 mg tablet 0.5 mg PO BID #180 tabs 01/10/22 10/02/22 Unknown Rx budesonide 0.5 mg/2 mL suspension See Rx Instructions .Route 01/24/22 10/02/22 Unknown Rx for nebulization .COMPLEX #60 vials formoterol fumarate 20 mcg/2 mL See Rx Instructions .Route 01/24/22 10/02/22 Unknown Rx solution for nebulization .COMPLEX #60 vials (Perforomist) revefenacin 175 mcg/3 mL solution See Rx Instructions .Route 01/24/22 10/02/22 Unknown Rx for nebulization (Yupelri) .COMPLEX #30 vials albuterol sulfate 90 mcg/actuation 2 puff inhalation Q6H PRN 02/13/22 10/02/22 Unknown Rx aerosol inhaler (ProAir HFA) Shortness Of Breath Or Wheezing #8.5 grams azelastine 137 mcg (0.1 %) nasal 1 spray intranasal BID@0700,2200 02/13/22 10/02/22 Unknown Rx spray aerosol 30 days #30 mL omalizumab 150 mg/mL subcutaneous 300 mg (2 mL) SUBCUT .W0Amutq #4 mL 05/11/22 10/02/22 Unknown Rx syringe (Xolair) benzonatate 100 mg capsule 100 mg PO TID PRN cough #42 caps 05/16/22 10/02/22 Unknown Rx codeine 10 mg-guaifenesin 200 mg/5 5 ml PO Q6H PRN cough #200 mL 06/19/22 10/02/22 Unknown Rx mL oral liquid epinephrine 0.15 mg/0.3 mL 0.15 mg (0.3 mL) IM Q30M PRN 06/19/22 10/02/22 Unknown Rx injection,auto-injector (EpiPen Jr anaphylaxis #2 ea 2-Guille) methadone 5 mg tablet 5 mg PO BID 06/21/22 10/02/22 Unknown History nitroglycerin 0.4 mg sublingual 0.4 mg sublingual Q5M PRN chest 06/21/22 10/02/22 Unknown Rx tablet pain #25 tabs ezetimibe 10 mg tablet 10 mg PO DAILY #90 tabs 08/08/22 10/02/22 Unknown Rx furosemide 40 mg tablet 40 mg PO DAILY #90 tabs 08/08/22 10/02/22 Unknown Rx potassium chloride 20 mEq 20 meq PO DAILY #90 tabs 08/08/22 10/02/22 Unknown Rx tablet,extended release atorvastatin 80 mg tablet 80 mg PO DAILY #90 tabs 08/09/22 10/02/22 Unknown Rx clopidogrel 75 mg tablet 75 mg PO DAILY@0730 #90 tabs 08/09/22 10/02/22 Unknown Rx losartan 25 mg tablet 25 mg PO DAILY #90 tabs 08/09/22 10/02/22 Unknown Rx metoprolol succinate 25 mg 25 mg PO DAILY@0730 #90 tabs 08/09/22 10/02/22 Unknown Rx tablet,extended release 24 hr pantoprazole 40 mg tablet,delayed 40 mg PO BID #90 tabs 08/13/22 10/02/22 Unknown Rx release montelukast 10 mg tablet 10 mg PO DAILY #90 tabs 08/31/22 10/02/22 Unknown Rx (Singulair) Fast form splint #1 ea 09/18/22 10/02/22 Unknown Rx Allergies Allergy/AdvReac Type Severity Reaction Status Date / Time doxycycline Allergy Intermediate ALGY-Hives Verified 10/02/22 13:58 Iodinated Contrast Media Allergy Intermediate ALGY-Hives Verified 10/02/22 13:58 codeine Allergy Unknown Unknown Verified 10/02/22 13:58 Sulfa (Sulfonamide Allergy Unknown Unknown Verified 10/02/22 13:58 Antibiotics) gabapentin Allergy Unknown Verified 10/02/22 13:58 PFSH Acute PFSH: Medical History (Updated 10/17/22 @ 14:43 by Parth Edwards MD) Acute anterior wall GA Acute exacerbation of CHF (congestive heart failure) Asthma -severe persistent, started xolair 02/04/2020 -follow up with Dr. West CAD (coronary artery disease) (~12/2019) -Known history of CAD with recent stenting of LAD due to anterior wall STEMI in December -Follows up with Dr. Salcedo; f/u in [address] 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 New onset of congestive heart failure -Could be secondary to recent STEMI requiring intervention with stenting of LAD last month -Echo: EF=57%, normal systolic and diastolic function, no RWMA, trace TR, trace IN -has been on IV diuresis with Lasix; switched to oral lasix -Continue to monitor electrolytes and renal function -Daily weights, monitor ins and outs -BNP elevated at 948 -Chest x-ray reported as unremarkable -Close monitoring of respiratory status, supplemental oxygen as needed Normocytic anemia -Seems to have intermittent normocytic anemia with a baseline hemoglobin of about 10-11, intermittently normal -Has been on dual antiplatelet therapy given recent stenting -Continue to monitor H&H closely; stable so far -iron and ferritin low; start on iron replacement KRISTOFER on CPAP Psychiatric care Severe persistent asthma Sleep apnea, unspecified Surgical History (Updated 10/17/22 @ 14:40 by Parth Edwards MD) H/O bilateral oophorectomy H/O oral surgery H/O skin graft History of carpal tunnel release History of cholecystectomy Presence of stent in LAD coronary artery (01/23/20) S/P section Family History Father Myocardial infarct, Onset Age: 45 Brother Myocardial infarct, Onset Age: 53 Other CAD (coronary artery disease) Social History Smoking and tobacco status: former smoker Quit status (tobacco): has quit using tobacco Year quit tobacco: 2019 - 1PPD x 30 Years Second hand smoke exposure: Yes Alcohol intake: former Lives independently: Yes Household members: family Marital status: Current occupational status: disabled Current gender identity: Female Vitals/I&O/Wt Last Vital Signs Temp 98.3 F 10/17/22 11:33 Pulse 85 10/17/22 14:10 Resp 18 10/17/22 14:05 BP 126/85 10/17/22 14:10 Pulse Ox 94 10/17/22 13:14 O2 Del Method Room Air 10/17/22 13:14 Weight last 48 hrs Weight 58.967 kg Physical Exam Narrative: General: No acute distress, AO x3, anxious, dehydrated HEENT: PERRLA, pupils bilaterally equal and reactive Chest: Normal vesicular breath sounds, no added sounds, equal good air entry bilaterally CVS: S1-S2 regular, no murmurs, no tachycardia, no gallops, no rubs Abdomen: Soft, nontender, no organomegaly, bowel sounds present Neuro: No focal deficits, no facial deformity, AO x3, power 5/5 in all limbs Data 10/17/22 12:07 10/17/22 12:07 A&P Assessment and plan (1) Hypokalemia: Persistent. Refractory to oral treatment as an outpatient. Was as high as 160 mg of potassium intake twice daily. Denies any diarrhea or vomiting. Currently symptomatic. Does take Lasix 40 mg oral daily. Receiving 120 mg of potassium in the ER. Replace 40 mg oral. Repeat BMP in evening. Check urine lites. Magnesium within normal limits. (2) Shortness of breath: Most likely in setting of COPD exacerbation with history of emphysema and asthma in past. Does have history of diastolic heart failure. KRISTOFER on BiPAP. BiPAP nightly. proBNP within normal limits. Chest x-ray appreciated. Check D-dimer. If D-dimer elevated will plan for CTA. (3) Emphysema of lung: DuoNebs every 6 hour, budesonide twice daily. Start on prednisone 40 mg oral daily. Oxygen supplementation keeping saturation over 88%. (4) KRISTOFER on CPAP: Home CPAP nightly. (5) Diastolic congestive heart failure: Last echocardiogram from 2021 showed EF 55%, grade 1 diastolic dysfunction. No acute exacerbation. proBNP negative. Hold off on Lasix for now. (6) CAD (coronary artery disease): No active chest pain. Continue with home dose of Plavix, statin, beta-aniket. Qualifiers: Coronary Disease-Associated Artery/Lesion type: [place] artery [place] vs. transplanted heart: [place] heart Associated angina: with unspecified angina Qualified Code(s): I25.119 - Atherosclerotic heart disease of [place] coronary artery with unspecified angina pectoris (7) Essential (primary) hypertension: Goal blood pressure less than 140/90 mmHg. Continue with home antihypertensives. Will uptitrate as per goal blood pressures. (8) Bereavement: Currently more depressed than usual. Anniversary of son's . No suicidal homicidal ideation. Continue with home dose of fluoxetine. (9) Encounter for chronic pain management: Seems she takes methadone 5 mg twice daily and oxycodone 5 mg every 8 hourly as needed. Continue home dose. Plan Regular diet Heparin for DVT prophylaxis Protonix for PUD prophylaxis. Attestations Medical Necessity Statement*: Admission for less than 2 midnights under observation for persistent symptomatic hypokalemia Diagnoses Hypokalemia E87.6 Shortness of breath R06.02 Emphysema of lung J43.9 KRISTOFER on CPAP G47.33; Z99.89 Diastolic congestive heart failure I50.30 CAD (coronary artery disease) I25.119 Coronary Disease-Associated Artery/Lesion type: [place] artery [place] vs. transplanted heart: [place] heart Associated angina: with unspecified angina Essential (primary) hypertension I10 Bereavement Z63.4 Encounter for chronic pain management G89.29
[2022-10-17] MEDS: potassium chloride ER 20 mEq Tablet 40 MEQ PO (15:02)
[2022-10-17] MEDS: predniSONE 20 mg Tablet 40 MG PO (15:02)
[2022-10-17 15:13] LABS: D Dimer 1.09 ug/mIFEU (0-0.59)
--- NOTE | 2022-10-17 15:14 | CTR_ITS ---
PROCEDURE INFORMATION: Exam: CT Chest Without Contrast; Diagnostic Exam date and time: 10/17/2022 4:37 PM Age: 57 years old Clinical indication: Shortness of breath; Additional info: SOB TECHNIQUE: Imaging protocol: Diagnostic computed tomography of the chest without contrast. Sagittal and coronal reformatted images were created and reviewed. Radiation optimization: All CT scans at this facility use at least one of these dose optimization techniques: automated exposure control; mA and/or kV adjustment per patient size (includes targeted exams where dose is matched to clinical indication); or iterative reconstruction. REPORTING DATA: Count of CT and Cardiac NM exams in prior 12 months: This patient has received 2 known CTs and 0 known cardiac nuclear medicine studies in the 12 months prior to the current study. COMPARISON: CT lung screening [id number] 12/18/2021 12:48 PM RADIATION DOSE METRICS: Total DLP (mGy-cm): 283.51 FINDINGS: Limitations: Evaluation of the mediastinum and vasculature is limited without intravenous contrast. Trachea: Tracheobronchial structures are patent. Lungs: Multiple calcified granulomas scattered in both lungs. Mild centrilobular and paraseptal emphysematous changes in the upper lobes are stable. No focal consolidation. No pulmonary edema. Pleural spaces: No pneumothorax. No pleural effusion. Heart: No cardiomegaly. No pericardial effusion. Coronary arteries: There is a stent in the left anterior descending coronary artery. Esophagus: The esophagus is unremarkable. Mediastinal space: No mediastinal hematoma. No pneumomediastinum. Lymph nodes: No lymphadenopathy. Calcified lymph nodes in the right and left aletha. No lymphadenopathy. Vasculature: No evidence for aortic aneurysm. Pulmonary arteries are unremarkable. Pulmonary veins are unremarkable. Bones/joints: Xfor-up-almuistt multilevel degenerative changes in the visualized spine. Soft tissues: No acute abnormality in the extrathoracic soft tissues. CT/CT chest wo con [id number] IMPRESSION: 1. No acute cardiopulmonary process. 2. Mild centrilobular and paraseptal emphysematous changes in the upper lobes are stable. 3. Incidental/nonacute findings are listed in the report. COMMENTS: In the absence of a history or active diagnosis of lung cancer, it is recommended that this patient with emphysema be evaluated for enrollment in a low dose CT lung cancer screening program.
[2022-10-17 15:15] LABS: Anion Gap 14.9 (5-19); Blood Urea Nitrogen 6 mg/dL (6-20); Calcium 9.2 mg/dL (8.5-10.5); Carbon Dioxide 33 mmol/L (22-29); Chloride 92 mmol/L (98-107); Glucose 89 mg/dL (65-115); Osmolality Calculated 281 mOsm/kg (285-295); Sodium 137 mmol/L (136-145)
[2022-10-17 15:25] LABS: Potassium 2.9 mmol/L (3.5-5.1)
[2022-10-17 15:34] LABS: Folate Level 8.6 ng/mL (4.8-37.3)
[2022-10-17 15:35] LABS: Procalcitonin 0.04 ng/mL (0-0.5); Vitamin B12 393 pg/mL (232-1245)
[2022-10-17 15:47] LABS: Iron 52 ug/dL (37-145); Percent Saturation 23.6 % (20-50); Total Iron Binding Capacity 220 mcg/dl; Unsaturated Iron Binding 168 ug/dL (112-347)
[2022-10-17] MEDS: heparin 5,000 unit/mL INJ 1 mL 5000 UNIT SUBCUT (17:17)
[2022-10-17] MEDS: ropinirole 0.25 mg Tablet 0.5 MG PO (17:18)
[2022-10-17] MEDS: methadone 10 mg Tablet 5 MG PO (17:19)
[2022-10-17] MEDS: pantoprazole DR 40 mg Tablet PO (17:19)
[2022-10-17] MEDS: budesonide 0.5 mg/2 mL Neb INHALATION (20:46)
[2022-10-18] VITALS (10 sets, daily range): BP systolic 92–101; BP diastolic 56–64; PULSE 57–73; RESP 15–18; TEMP 36.4–36.8; O2SAT 90–95
[2022-10-18] MEDS: sodium chloride 0.9% 1,000 ML 75 ML IV (03:23)
[2022-10-18] MEDS: heparin 5,000 unit/mL INJ 1 mL 5000 UNIT SUBCUT ×2 (03:25→15:00)
[2022-10-18] MEDS: fluoxetine 20 mg Capsule 40 MG PO (06:32)
[2022-10-18] MEDS: clopidogrel 75 mg Tablet PO (06:32)
[2022-10-18] MEDS: metoprolol succinate ER (24 HR) 25 mg Tablet PO (06:32)
[2022-10-18] MEDS: methadone 10 mg Tablet 5 MG PO (08:16)
[2022-10-18] MEDS: pantoprazole DR 40 mg Tablet PO (08:16)
[2022-10-18] MEDS: ropinirole 0.25 mg Tablet 0.5 MG PO (08:16)
[2022-10-18] MEDS: atorvastatin 40 mg Tablet 80 MG PO (08:16)
[2022-10-18] MEDS: ezetimibe 10 mg Tablet PO (08:16)
[2022-10-18] MEDS: losartan 50 mg Tablet 25 MG PO (08:17)
[2022-10-18] MEDS: predniSONE 20 mg Tablet 40 MG PO (08:18)
[2022-10-18 08:34] LABS: Potassium 3.7 mmol/L (3.5-5.1)
[2022-10-18] MEDS: ipratropium-albuterol 3 mL Neb INHALATION ×2 (08:34→13:19)
[2022-10-18 10:21] LABS: Basophils % 0.2 %; Hematocrit 38.4 % (37.0-47.0); Hemoglobin 12.2 g/dL (11.5-15.3); Lymphocytes # 1.5 10^3/uL (0.8-4.8); Lymphocytes % 13.1 %; Mean Corpuscular HGB Conc 31.8 g/dL (30.0-36.0); Mean Corpuscular Hemoglobin 30.3 pg (28.0-34.0); Mean Corpuscular Volume 95.5 fl (81-99); Mean Platelet Volume 11.9 fL (7.4-10.4); Monocytes # 0.5 10^3/uL (0.2-0.9); Monocytes % 4.3 %; Neutrophils # 9.59 10^3/uL (1.8-7.7); Neutrophils % 81.9 %; Nucleated Red Blood Cells % 0 %; Platelet Count 231 10^3/cmm (130-400); Red Blood Count 4.02 10^6/uL (4.1-5.3); Red Cell Distribution Width 13.1 % (12.1-15.1); White Blood Count 11.7 10^3/uL (4.0-10.0)
[2022-10-18 10:46] LABS: Estmated Average Glucose 85; Hemoglobin A1C 4.6 % (4.0-6.0)
[2022-10-18] MEDS: cyanocobalamin 1,000 mcg Tablet 500 MCG PO (11:09)
[2022-10-18 11:11] LABS: Alanine Aminotransferase < 5 U/L (0-33); Albumin Level 3.4 g/dL (3.5-5.2); Alkaline Phosphatase 94 U/L (35-105); Anion Gap 12.4 (5-19); Aspartate Amino Transferase 7 U/L (0-32); Blood Urea Nitrogen 9 mg/dL (6-20); Calcium 8.8 mg/dL (8.5-10.5); Carbon Dioxide 27 mmol/L (22-29); Chloride 102 mmol/L (98-107); Chol HDL Ratio 3.93 mg/dL (0.0-4.40); Cholesterol 161 mg/dL (0-200); Globulin 2.4 g/dL (1.3-4.6); Glomerular Filtration Rate 127.2 mL/min (90-130); Glucose 108 mg/dL (65-115); HDL Cholesterol 41 mg/dL (60-100); LDL Cholesterol Calculated 99 mg/dL (50-129); LDL HDL Ratio 2.41 RATIO (0.00-3.22); Magnesium 1.9 mg/dL (1.7-2.3); Osmolality Calculated 285 mOsm/kg (285-295); Potassium 3.4 mmol/L (3.5-5.1); Sodium 138 mmol/L (136-145); Total Bilirubin 0.3 mg/dL (0.15-1.2); Total Protein 5.8 g/dL (6.6-8.7); Triglycerides 106 mg/dL (0-150)
[2022-10-18 13:56] LABS: Add Urine Microscopic? YES; Bilirubin Urine Neg (Negative); Blood Urine 2+ (Negative); Glucose Urine UA Norm (Normal); Ketones Urine Negative (Negative); Leukocyte Esterase Urine Negative (Negative); Nitrate Urine Negative (Negative); Protein Urine Neg (Negative); RBC Urine 0-4 /hpf (0-2); Urine Appearance Clear (CLEAR); Urine Color Yellow (Yellow); Urobilinogen Urine Neg (Negative); pH Urine 6 (5-7)
[2022-10-18 13:57] LABS: Add Urine Culture? No; Bacteria Urine TRACE /hpf; Mucus Urine 2+ /hpf
[2022-10-18] MEDS: potassium chloride ER 20 mEq Tablet 40 MEQ PO (15:00)
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
--- NOTE | 2022-10-18 15:57 | P.DS_ITS ---
Discharge Providers Date of Admission: 10/17/22 15:39 Date of Discharge: October 18, 2022 Attending Provider at Admission: Parth Edwards MD Attending Provider at Discharge: Parth Edwards MD Consults: Consult: Dr. Alvarez Primary Care Provider: Lauri Krishnan MD Diagnoses at Discharge Discharge Diagnosis (1) Major depressive disorder, recurrent severe without psychotic features: Status: Chronic (2) Chronic post-traumatic stress disorder: Status: Chronic (3) Hypokalemia: Status: Acute (4) Shortness of breath: Status: Acute (5) Diastolic congestive heart failure: Status: Acute (6) Acute exacerbation of chronic obstructive pulmonary disease: Status: Acute (7) Insomnia: Status: Acute (8) Emphysema of lung: Status: Acute (9) Bereavement: Status: Acute (10) Generalized anxiety disorder: Status: Chronic Reason for Visit Reason for Visit: Eulogio sent for extremely low K Hospital Course Hospital Course Nhung Leone is a 57 year old female with past medical history of CAD post PCI to LAD, heart failure with preserved action fraction, hypertension, former smoker, obstructive sleep apnea on BiPAP, asthma presented to the ER from primary care's office today because of persistent hypokalemia refractory to oral treatment as an outpatient. Currently patient has been taking potassium 60 mg twice daily.? Denies any vomiting, diarrhea but does complain of nausea, muscle aches and weakness which has been ongoing for last 1 week.? Also complains of increased difficulty in breathing on exertion for over 2 weeks along with cough.? Patient states she is more depressed than usual currently because this is the anniversary of her son's .? Denies any suicidal or homicidal ideation.? Takes Lasix 40 mg oral daily.? Denies any swelling in the legs, chest pain, palpitations. Blood work in the ER showed a white count 9.9, hemoglobin of 15.7, sodium of 136 and potassium of 2.6, creatinine 0.7, proBNP of 290.? Patient has been ordered for 120 mg of potassium. Patient was admitted to the hospital further evaluation and management of weakness secondary to hypokalemia. Her diuretic was withheld. She was given both IV and oral supplementation. After which her potassium levels increased and remained stable. As per primary care physician there was a concern for extreme depression for which they requested a psychiatric consultation. Patient was agreeable. Patient was seen by psychiatric team and they recommended patient to be followed up as an outpatient with behavioral health clinic along with increasing the dose of Prozac to 60 mg daily for next 2 weeks and trial of trazodone 50 mg at night as needed for insomnia. Patient is to follow-up with a primary care provider within next 2 to 3 days for repeat BMP. Physical Exam Narrative: General: No acute distress, AO x3, anxious, HEENT: PERRLA, pupils bilaterally equal and reactive Chest: Normal vesicular breath sounds, no added sounds, equal good air entry bilaterally CVS: S1-S2 regular, no murmurs, no tachycardia, no gallops, no rubs Abdomen: Soft, nontender, no organomegaly, bowel sounds present Neuro: No focal deficits, no facial deformity, AO x3, power 5/5 in all limbs Discharge Data Studies Completed and Pending Completed Studies During Hospitalization Category Date Time Status CT chest wo con [id number] Stat Cat Scan 10/17/22 15:14 Completed XR chest 1V portable [id number] Stat Exams 10/17/22 12:47 Completed Pending at discharge Category Date Time Status Complete Blood Count w/Auto AM LABS Lab 10/19/22 04:00 Ordered Comprehensive Metabolic Panel AM LABS Lab 10/19/22 04:00 Ordered Magnesium AM LABS Lab 10/19/22 04:00 Ordered Phosphorus AM LABS Lab 10/19/22 04:00 Ordered Radiology Impressions Chest X-Ray 10/17/22 12:47 Impression: Hyperinflation. Chest CT 10/17/22 15:14 IMPRESSION: 1. No acute cardiopulmonary process. 2. Mild centrilobular and paraseptal emphysematous changes in the upper lobes are stable. 3. Incidental/nonacute findings are listed in the report. COMMENTS: In the absence of a history or active diagnosis of lung cancer, it is recommended that this patient with emphysema be evaluated for enrollment in a low dose CT lung cancer screening program. Laboratory Results WBC 11.7 10^3/uL (4.0-10.0) H 10/18/22 07:52 RBC 4.02 10^6/uL (4.1-5.3) L 10/18/22 07:52 Hgb 12.2 g/dL (11.5-15.3) 10/18/22 07:52 Hct 38.4 % (37.0-47.0) 10/18/22 07:52 MCV 95.5 fl (81-99) D 10/18/22 07:52 MCH 30.3 pg (28.0-34.0) 10/18/22 07:52 MCHC 31.8 g/dL (30.0-36.0) D 10/18/22 07:52 RDW 13.1 % (12.1-15.1) 10/18/22 07:52 Plt Count 231 10^3/cmm (130-400) 10/18/22 07:52 MPV 11.9 fL (7.4-10.4) H 10/18/22 07:52 Neut % (Auto) 81.9 % 10/18/22 07:52 Lymph % (Auto) 13.1 % 10/18/22 07:52 Edmunds % (Auto) 4.3 % 10/18/22 07:52 Eos % (Auto) 0.0 % 10/18/22 07:52 Baso % (Auto) 0.2 % 10/18/22 07:52 Neut # (Auto) 9.59 10^3/uL (1.8-7.7) H 10/18/22 07:52 Lymph # (Auto) 1.5 10^3/uL (0.8-4.8) 10/18/22 07:52 Edmunds # (Auto) 0.5 10^3/uL (0.2-0.9) 10/18/22 07:52 Eos # (Auto) 0.0 10^3/uL (0.0-0.8) 10/18/22 07:52 Baso # (Auto) 0.0 10^3/uL (0.0-0.1) 10/18/22 07:52 Nucleated RBC % (auto) 0 % 10/18/22 07:52 Nucleated RBCs # 0.0 /100WBC 10/18/22 07:52 D-Dimer 1.09 ug/mIFEU (0-0.59) H 10/17/22 14:43 Sodium 138 mmol/L (136-145) 10/18/22 10:20 Potassium 3.4 mmol/L (3.5-5.1) L 10/18/22 10:20 Chloride 102 mmol/L (98-107) 10/18/22 10:20 Carbon Dioxide 27 mmol/L (22-29) 10/18/22 10:20 Anion Gap 12.4 (5-19) 10/18/22 10:20 BUN 9 mg/dL (6-20) 10/18/22 10:20 Creatinine 0.5 mg/dL (0.5-0.9) 10/18/22 10:20 GFR Calculation 127.2 mL/min (90-130) 10/18/22 10:20 Glucose 108 mg/dL (65-115) 10/18/22 10:20 Estimat Average Glucose 85 10/18/22 07:52 Hemoglobin A1c 4.6 % (4.0-6.0) 10/18/22 07:52 Calculated Osmolality 285 mOsm/kg (285-295) 10/18/22 10:20 Calcium 8.8 mg/dL (8.5-10.5) 10/18/22 10:20 Magnesium 1.9 mg/dL (1.7-2.3) 10/18/22 10:20 Iron 52 ug/dL (37-145) 10/17/22 14:43 TIBC 220 mcg/dl 10/17/22 14:43 % Saturation 23.6 % (20-50) 10/17/22 14:43 Unsat Iron Binding 168 ug/dL (112-347) 10/17/22 14:43 Total Bilirubin 0.3 mg/dL (0.15-1.2) 10/18/22 10:20 AST 7 U/L (0-32) 10/18/22 10:20 ALT < 5 U/L (0-33) 10/18/22 10:20 Alkaline Phosphatase 94 U/L (35-105) 10/18/22 10:20 NT-Pro-B Natriuret Pep 290 pg/mL (0-125) H 10/17/22 11:36 Total Protein 5.8 g/dL (6.6-8.7) L D 10/18/22 10:20 Albumin 3.4 g/dL (3.5-5.2) L 10/18/22 10:20 Globulin 2.4 g/dL (1.3-4.6) 10/18/22 10:20 Triglycerides 106 mg/dL (0-150) 10/18/22 10:20 Cholesterol 161 mg/dL (0-200) 10/18/22 10:20 LDL Cholesterol, Calc 99 mg/dL (50-129) 10/18/22 10:20 HDL Cholesterol 41 mg/dL (60-100) L 10/18/22 10:20 LDL/HDL Ratio 2.41 RATIO (0.00-3.22) 10/18/22 10:20 Cholesterol/HDL Ratio 3.93 mg/dL (0.0-4.40) 10/18/22 10:20 Vitamin B12 393 pg/mL (232-1245) 10/17/22 14:43 Folate 8.6 ng/mL (4.8-37.3) 10/17/22 14:43 Procalcitonin 0.04 ng/mL (0-0.5) 10/17/22 14:43 TSH 0.50 uIU/mL (0.27-4.20) 10/17/22 14:43 Urine Color Yellow (Yellow) 10/18/22 13:14 Urine Appearance Clear (CLEAR) 10/18/22 13:14 Urine pH 6 (5-7) 10/18/22 13:14 Ur Specific [place] 1.020 (1.005-1.030) 10/18/22 13:14 Urine Protein Neg (Negative) 10/18/22 13:14 Urine Glucose (UA) Norm (Normal) 10/18/22 13:14 Urine Ketones Negative (Negative) 10/18/22 13:14 Urine Blood 2+ (Negative) H 10/18/22 13:14 Urine Nitrate Negative (Negative) 10/18/22 13:14 Urine Bilirubin Neg (Negative) 10/18/22 13:14 Urine Urobilinogen Neg mg/dL (Negative) 10/18/22 13:14 Ur Leukocyte Esterase Negative (Negative) 10/18/22 13:14 Urine RBC 0-4 /hpf (0-2) H 10/18/22 13:14 Urine WBC None /hpf (0-5) 10/18/22 13:14 Ur Squamous Epith Cells 5-10 /hpf (0-5) H 10/18/22 13:14 Amorphous Sediment Not Reportable 10/18/22 13:14 Urine Bacteria Trace /hpf (NONE) 10/18/22 13:14 Urine Mucus 2+ /hpf 10/18/22 13:14 Vitals Last Vital Signs Temp 98.3 F 10/18/22 11:39 Pulse 60 10/18/22 13:21 Resp 16 10/18/22 13:15 BP 101/62 10/18/22 11:39 Pulse Ox 93 10/18/22 13:15 O2 Del Method Room Air 10/18/22 13:15 Discharge Plan Discharge Patient Disposition: Home Condition: Stable Prescriptions: New trazodone 50 mg tablet 50 mg PO .qhs PRN (Reason: insomnia) Qty: 14 0RF prednisone 20 mg Tablet 40 mg PO DAILY 7 Days Qty: 14 0RF Continued methadone 5 mg tablet 5 mg PO BID ropinirole 0.5 mg tablet 0.5 mg PO BID Qty: 180 2RF Rx Instructions: Take one tablet twice per day nitroglycerin 0.4 mg tablet, sublingual 0.4 mg SUBLINGUAL Q5M PRN (Reason: chest pain) Qty: 25 6RF Rx Instructions: do not exceed 3 doses per episode (DME) Fast form splint See Rx Instructions .Route .MEDSUPPLY Qty: 1 0RF Rx Instructions: As directed azelastine 137 mcg (0.1 %) aerosol,spray 1 spray INTRANASAL BID@0700,2200 30 Days Qty: 30 4RF Rx Instructions: administer into each nostril albuterol sulfate [ProAir HFA] 90 mcg/actuation HFA aerosol inhaler 2 puff INHALATION Q6H PRN (Reason: Shortness Of Breath Or Wheezing) Qty: 8.5 3RF epinephrine [EpiPen Jr 2-Guille] 0.15 mg/0.3 mL auto-injector 0.15 mg IM Q30M PRN (Reason: anaphylaxis) Qty: 2 1RF Rx Instructions: do not exceed 12 doses per 24 hrs codeine-guaifenesin 10-200 mg/5 mL liquid 5 ml PO Q6H PRN (Reason: cough) Qty: 200 0RF benzonatate 100 mg capsule 100 mg PO TID PRN (Reason: cough) Qty: 42 0RF Flonase Allergy Relief 50 mcg/actuation spray,suspension 1 spray INTRANASAL BID@ Qty: 15.8 3RF Rx Instructions: administer into each nostril Perforomist 20 mcg/2 mL solution for nebulization See Rx Instructions .ROUTE .COMPLEX Qty: 60 11RF Dose Instruction: USE 1 VIAL IN NEBULIZER EVERY 12 HOURS - Morning and Evening Rx Instructions: USE 1 VIAL IN NEBULIZER EVERY 12 HOURS - Morning and Evening Yupelri 175 mcg/3 mL solution for nebulization See Rx Instructions .ROUTE .COMPLEX Qty: 30 11RF Dose Instruction: USE 1 VIAL IN NEBULIZER DAILY - DO NOT MIX WITH OTHER NEB MEDS, USE BEFORE OR AFTER Rx Instructions: USE 1 VIAL IN NEBULIZER DAILY - DO NOT MIX WITH OTHER NEB MEDS, USE BEFORE OR AFTER budesonide 0.5 mg/2 mL suspension for nebulization See Rx Instructions .ROUTE .COMPLEX Qty: 60 11RF Dose Instruction: USE 1 VIAL IN NEBULIZER TWICE DAILY - Rinse Mouth After Treatment Rx Instructions: USE 1 VIAL IN NEBULIZER TWICE DAILY - Rinse Mouth After Treatment Xolair 150 mg/mL syringe 300 mg SUBCUT .[id number] Qty: 4 6RF Rx Instructions: DE# [id number] approved through 06/30/22 ezetimibe 10 mg tablet 10 mg PO DAILY Qty: 90 1RF atorvastatin 80 mg tablet 80 mg PO DAILY Qty: 90 1RF clopidogrel 75 mg tablet 75 mg PO DAILY@0730 Qty: 90 1RF losartan 25 mg tablet 25 mg PO DAILY Qty: 90 1RF metoprolol succinate 25 mg tablet extended release 24 hr 25 mg PO DAILY@0730 Qty: 90 1RF pantoprazole 40 mg tablet,delayed release (DR/EC) 40 mg PO BID Qty: 90 2RF Singulair 10 mg tablet 10 mg PO DAILY Qty: 90 1RF hydrocodone-acetaminophen 5-325 mg tablet 1 tab PO Q12H PRN (Reason: Pain) spironolactone 25 mg tablet 25 mg PO DAILY Changed fluoxetine [Prozac] 40 mg capsule 60 mg PO QAM Qty: 90 2RF potassium chloride 20 mEq tablet extended release 40 meq PO BID Qty: 10 0RF Rx Instructions: patient has more supply at home Held prednisone 5 mg tablet 5 mg PO .COMPLEX Qty: 30 3RF Hold Instructions: Resume on 10/25/22. Rx Instructions: 5 mg PO Every other day; take at 0730 furosemide 40 mg tablet 40 mg PO DAILY Qty: 90 1RF Hold Instructions: Resume on 11/01/22. Discharge Orders: Discharge Order (Routine); Ordered 10/18/22 Ordered By: Parth Edwards Referrals: [facility] [Provider Group] [facility], [Staff Physician] - Lauri Krishnan MD [Primary Care Provider] - 1-3 days Discharge Diet: Cardiac Discharge Activity: Resume usual activity and Increase activity as tolerated Patient Instructions: Opioid Safety Activity Restrictions/Additional Instructions: Follow-up with a primary care provider within next 1 to 3 days for repeat BMP to monitor potassium. Do not take Lasix for next 2 weeks. Take potassium 40 mg twice daily for now. Dose of the Prozac has been increased to 60 mg daily. Trazodone has been added as per psychiatry 50 mg evening Take prednisone 40 mg daily for next 1 week and after that start 5 mg home dose. Discharge Attestations Time Spent in Discharge Care*: greater than 30 min Specific Discharge Activities: educating patient, discussing with pcp/other providers, discussing with rifle case repairer/social workers/dc planners, documenting/other paperwork and evaluating patient/reviewing data Status at Discharge: Cognitive status at discharge: cognitively intact , Behavioral status at discharge: cooperative and independent in ADL's , Functional status at discharge: independent ambulation , Overall status at discharge: patient is back to baseline Quality Metrics Clinical Quality Measures [ No reported AMI, CVA or VTE this stay] Coding Level of Care Code 58347 Total time (in minutes) for Discharge: 50 Diagnoses Major depressive disorder, recurrent severe without psychotic features F33.2 Chronic post-traumatic stress disorder F43.12 Hypokalemia E87.6 Shortness of breath R06.02 Diastolic congestive heart failure I50.30 Acute exacerbation of chronic obstructive pulmonary disease J44.1 Insomnia G47.00 Emphysema of lung J43.9 Bereavement Z63.4 Generalized anxiety disorder F41.1
== END 2022-10-18 16:57 | disposition home or self-care (01) ==
LOC: ER 13:02 → MEDSURG 15:32
PROVIDERS: Admitting Provider Student in an Organized Health Care Education/Training Program; Emergency Provider Family Medicine; PCP Family Medicine; Visit Provider Student in an Organized Health Care Education/Training Program
DX: E87.6 Hypokalemia (principal); J43.9 Emphysema, unspecified; I11.0 Hypertensive heart disease with heart failure; I50.32 Chronic diastolic (congestive) heart failure; G47.33 Obstructive sleep apnea (adult) (pediatric); I25.119 Atherosclerotic heart disease of native coronary artery with unspecified angina pectoris; Z63.4 Disappearance and death of family member; G89.29 Other chronic pain; F33.9 Major depressive disorder, recurrent, unspecified; F43.12 Post-traumatic stress disorder, chronic; F41.9 Anxiety disorder, unspecified; E78.5 Hyperlipidemia, unspecified
CPT/HCPCS: 36415; 71045; 71250; 80048; 80053; 80061; 81001; 82607; 82746; 83036; 83540; 83550; 83735; 83880; 84132; 84145; 84443; 85025; 85378; 93005; 94640; 94664; 96365; 96366; 96372; 96375; 99285; G0378; J1644; J2930; J3480; J7030; J7512; J7626

== ENCOUNTER → 2022-10-30 12:58 | Outpatient (BNVA) | payer MEDICARE, MEDICAID, SELFPAY | PROVIDERS: PCP Family Medicine; Visit Provider Physician Assistant | DX: S52.502D Unspecified fracture of the lower end of left radius, subsequent encounter for closed fracture with routine healing (principal); S52.602D Unspecified fracture of lower end of left ulna, subsequent encounter for closed fracture with routine healing; W18.30XD Fall on same level, unspecified, subsequent encounter | CPT/HCPCS: 73110 ==

== ENCOUNTER 2022-10-30 15:33 | Outpatient (CLI) | payer MEDICARE, MEDICAID, SELFPAY | END 2022-10-30 15:34 | disposition home or self-care (01) | LOC: SPT 15:33 | PROVIDERS: PCP Family Medicine; Visit Provider Physician Assistant | DX: Z46.89 Encounter for fitting and adjustment of other specified devices (principal); S52.592D Other fractures of lower end of left radius, subsequent encounter for closed fracture with routine healing; X58.XXXD Exposure to other specified factors, subsequent encounter | CPT/HCPCS: 97760; 99213; L3908 ==

== ENCOUNTER → 2022-11-20 13:07 | Outpatient (BNVA) | payer MEDICARE, MEDICAID, SELFPAY | PROVIDERS: PCP Family Medicine; Visit Provider Physician Assistant | DX: S52.502D Unspecified fracture of the lower end of left radius, subsequent encounter for closed fracture with routine healing (principal); S52.602D Unspecified fracture of lower end of left ulna, subsequent encounter for closed fracture with routine healing; W19.XXXD Unspecified fall, subsequent encounter | CPT/HCPCS: 73110; 99213 ==

== ENCOUNTER 2022-11-29 09:29 | Outpatient (CLI) | payer MEDICARE, MEDICAID, SELFPAY ==
--- NOTE | 2022-11-29 09:45 | CT_ITS ---
WS: [id number] LDCT LUNG CANCER SCREENING HISTORY: lung screening TECHNIQUE: Axial imaging performed from the apices to 1 cm below the costophrenic angles. Coronal and sagittal reformats are submitted with axial MIP series. All CT scans at [facility] use at least one of these dose optimization techniques: automated exposure control; mA and/or kV adjustment per patient size (includes targeted exams where dose is matched to clinical indication); or iterativ e reconstruction. DLP: 49.50 mGy.cm DIvol: Mean CTDIvol: 0.80 (mGy) COMPARISON: Chest CT 10/17/2022 Diagnostic quality: Satisfactory Lungs: Moderate hyperexpansion with centrilobular and paraseptal emphysema. Noncalcified 3 mm nodule at the LEFT lung base. Benign granuloma LEFT upper lobe and RIGHT lower lobe. No endobronchial lesion s. Heart: Normal size heart with no pericardial effusion.. Other findings: Normal size aortic and pulmonary artery. No adenopathy. Mild coronary artery calcific ations. Small hiatal hernia. Prior cholecystectomy. Normal adrenal glands. CT/CT lung screening [id number] IMPRESSION: LUNG-RADS: 2-Benign Appearance or Behavior FOLLOW UP: 12 Month: Continue annual screening with LDCT OTHER FINDINGS (S MODIFIER): None.
== END 2022-11-29 09:30 | disposition home or self-care (01) ==
LOC: RAD 09:35
PROVIDERS: PCP Family Medicine; Visit Provider Internal Medicine Pulmonary Disease
DX: Z12.2 Encounter for screening for malignant neoplasm of respiratory organs (principal); J43.8 Other emphysema; R91.1 Solitary pulmonary nodule; J84.10 Pulmonary fibrosis, unspecified
CPT/HCPCS: 71271

== ENCOUNTER → 2022-12-28 10:05 | Outpatient (BNVA) | payer MEDICARE, MEDICAID, SELFPAY | PROVIDERS: PCP Family Medicine; Visit Provider Internal Medicine Pulmonary Disease | DX: J43.9 Emphysema, unspecified (principal); J45.50 Severe persistent asthma, uncomplicated; Z87.891 Personal history of nicotine dependence; I25.2 Old myocardial infarction | CPT/HCPCS: 99214 ==

== ENCOUNTER → 2023-01-03 13:51 | Outpatient (BNVA) | payer MEDICARE, MEDICAID, SELFPAY | PROVIDERS: PCP Family Medicine; Visit Provider Internal Medicine Cardiovascular Disease | DX: R07.9 Chest pain, unspecified (principal); I25.119 Atherosclerotic heart disease of native coronary artery with unspecified angina pectoris; I11.0 Hypertensive heart disease with heart failure; I50.9 Heart failure, unspecified; R53.81 Other malaise; R53.83 Other fatigue; E78.2 Mixed hyperlipidemia; J45.50 Severe persistent asthma, uncomplicated; G47.33 Obstructive sleep apnea (adult) (pediatric); Z99.89 Dependence on other enabling machines and devices; Z87.891 Personal history of nicotine dependence; R94.31 Abnormal electrocardiogram [ECG] [EKG] | CPT/HCPCS: 93005 ==

== ENCOUNTER 2023-01-03 17:11 | Inpatient (IN) | payer MEDICARE, MEDICAID, SELFPAY ==
[2023-01-03 17:21] VITALS: PULSE 108; RESP 20; TEMP 36.9; O2SAT 96; BMI 21.4
--- NOTE | 2023-01-03 18:13 | ED_ITS ---
HPI - Recheck/Abnormal Lab/Rx General: Chief Complaint: ER Hold Stated Complaint: Denisse sent for low K Time Seen by Provider: 01/03/23 18:13 History of Present Illness: Ms. Leone is a 57-year-old lady presenting to the emergency department for evaluation of abnormal labs. She has a history of low potassium and is pending a appointment with nephrology as the exact cause of her symptoms are unclear. She had routine labs drawn today and her potassium was low. She does note feeli ng generalized unwellness however no other clear changes in health. Denies chest pain or shortness of breath. Has been compliant with medication regimen including potassium supplementation. No other specific changes in health, exacerbating, or alleviating factors identified. Initial visit (ago): day(s) Review of Systems General: Reports: 10 or more systems reviewed and unremarkable except in HPI and below PFSH ED PFSH: Medical History Acute anterior wall OK Acute exacerbation of CHF (congestive heart failure) Asthma -severe persistent, started xolair 02/04/2020 -follow up with Dr. West CAD (coronary artery disease) (~12/2019) -Known history of CAD with recent stenting of LAD due to anterior wall STEMI in December -Follows up with Dr. Salcedo; f/u in [address] Bass Chronic post-traumatic stress disorder Chronic radicular lumbar pain Closed fracture distal radius and ulna COPD (chronic obstructive pulmonary disease) -no acute exacerbation -does not appear to be oxygen dependent at baseline -recently restarted smoking, 1/2 PPD Diastolic congestive heart failure Encounter for chronic pain management Essential (primary) hypertension -VSS; continue to monitor -continue oral antihypertensives Generalized anxiety disorder GERD (gastroesophageal reflux disease) -on PPI Herniated disc Hyperlipidemia Hypokalemia Hypomagnesemia Insomnia Lesion of ulnar nerve, bilateral Major depressive disorder, 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 New onset of congestive heart failure -Could be secondary to recent STEMI requiring intervention with stenting of LAD last month -Echo: EF=57%, normal systolic and diastolic function, no RWMA, trace TR, trace TX -has been on IV diuresis with Lasix; switched to oral lasix -Continue to monitor electrolytes and renal function -Daily weights, monitor ins and outs -BNP elevated at 948 -Chest x-ray reported as unremarkable -Close monitoring of respiratory status, supplemental oxygen as needed Nicotine addiction Normocytic anemia -Seems to have intermittent normocytic anemia with a baseline hemoglobin of about 10-11, intermittently normal -Has been on dual antiplatelet therapy given recent stenting -Continue to monitor H&H closely; stable so far -iron and ferritin low; start on iron replacement KRISTOFER on CPAP Severe persistent asthma Shortness of breath Sleep apnea, unspecified Smokers' cough Surgical History H/O bilateral oophorectomy H/O oral surgery H/O skin graft History of carpal tunnel release History of cholecystectomy Presence of stent in LAD coronary artery (01/23/20) S/P section Family History Father Myocardial infarct, Onset Age: 45 Brother Myocardial infarct, Onset Age: 53 Other CAD (coronary artery disease) Closed fracture distal radius and ulna Social History Smoking and tobacco status: former smoker Quit status (tobacco): has quit using tobacco Year quit tobacco: 2019 - 1PPD x 30 Years Second hand smoke exposure: Yes Alcohol intake: former Substance/Drug Use: never Lives independently: Yes Household members: family Marital status: Current occupational status: disabled Do you think of yourself as: Straight/Heterosexual Current gender identity: Female Physical Exam Const: COMMON NORMALS: alert GENERAL APPEARANCE: cooperative and well developed HENMT: COMMON NORMALS: normocephalic and atraumatic HEAD & SCALP: normocephalic and atraumatic Eye: COMMON NORMALS: conjunctivae normal CONJUNCTIVA: Yes conjunctivae normal SCLERA: sclerae normal Neck/C-Spine: COMMON NORMALS: supple GENERAL: Yes trachea midline Resp: COMMON NORMALS: normal respiratory effort and clear to auscultation bilaterally EFFORT & INSPECTION: Yes able to speak in complete sentences AUSCULTATION: clear to auscultation bilaterally Cardio: COMMON NORMALS: regular rate and regular rhythm RATE: regular rate RHYTHM: regular rhythm GI: COMMON NORMALS: Soft to palpation PALPATION: Yes Soft to palpation and No Tenderness to palpation present (GI) Extremity: GENERAL: Yes normal exam except as noted and No edema Neuro: COMMON NORMALS: moves all extremities SENSORIUM/ORIENTATION: Yes alert and No Orientation impaired Psych: COMMON NORMALS: mental status grossly normal and Normal thought process present THOUGHT PROCESS: Normal thought process present Course Vital Signs: Vital signs: Vital Signs Temperature 97.6 F 01/05/23 03:19 Pulse Rate 58 L 01/05/23 08:46 Respiratory Rate 16 01/05/23 03:20 Blood Pressure 118/68 01/05/23 09:41 Pulse Oximetry 92 01/05/23 03:20 Oxygen Delivery Me thod Room Air 01/05/23 03:19 MDM - Recheck/Abnormal Lab/Rx Medical Decision Making 57-year-old lady presenting for abnormal labs. Exam as above. Nontoxic. EKG demonstrates sinus tachycardia with borderline axis deviation and nonspecific ST segment abnormalities, no STEMI. Labs notable for minimal leukocytosis and hemoconcentration compared to prior. Potassium is in fact low. Elevation in creatinine, low magnesium. Given clinical history provided no indication for imaging studies at this time. Patient treated with both oral and IV potassium supplementation as well as magnesium supplementation. Also given IV fluids. The results of ED evaluation were discussed with the patient including plan for admission due to requirement for level of care not available if discharged to prevent significant worsening/deterioration. Patient agreeable with plan. Discussed with hospitalist service who was agreeable to admit patient. Medical Records I reviewed the patient's medical records. Lab Data I reviewed the patient's lab results. 01/05/23 03:07 01/05/23 03:07 Laboratory Results WBC 12.6 10^3/uL (4.0-10.0) H 01/03/23 18:12 RBC 5.07 10^6/uL (4.1-5.3) 01/03/23 18:12 Hgb 15.9 g/dL (11.5-15.3) H 01/03/23 18:12 Hct 46.9 % (37.0-47.0) 01/03/23 18:12 MCV 92.5 fl (81-99) 01/03/23 18:12 MCH 31.4 pg (28.0-34.0) 01/03/23 18:12 MCHC 33.9 g/dL (30.0-36.0) 01/03/23 18:12 RDW 12.8 % (12.1-15.1) 01/03/23 18:12 Plt Count 332 10^3/cmm (130-400) 01/03/23 18:12 MPV 10.0 fL (7.4-10.4) 01/03/23 18:12 Neut % (Auto) 61.8 % 01/03/23 18:12 Lymph % (Auto) 29.7 % 01/03/23 18:12 [place] % (Auto) 7.2 % 01/03/23 18:12 Eos % (Auto) 0.3 % 01/03/23 18:12 Baso % (Auto) 0.6 % 01/03/23 18:12 Neut # (Auto) 7.81 10^3/uL (1.8-7.7) H 01/03/23 18:12 Lymph # (Auto) 3.8 10^3/uL (0.8-4.8) 01/03/23 18:12 [place] # (Auto) 0.9 10^3/uL (0.2-0.9) 01/03/23 18:12 Eos # (Auto) 0.0 10^3/uL (0.0-0.8) 01/03/23 18:12 Baso # (Auto) 0.1 10^3/uL (0.0-0.1) 01/03/23 18:12 Nucleated RBC % (auto) 0 % 01/03/23 18:12 Nucleated RBCs # 0.0 /100WBC 01/03/23 18:12 Sodium 135 mmol/L (136-145) L 01/03/23 18:12 Potassium 2.0 mmol/L (3.5-5.1) L* 01/03/23 18:12 Chloride 89 mmol/L (98-107) L 01/03/23 18:12 Carbon Dioxide 28 mmol/L (22-29) 01/03/23 18:12 Anion Gap 20.0 (5-19) H 01/03/23 18:12 BUN 8 mg/dL (6-20) 01/03/23 18:12 Creatinine 1.1 mg/dL (0.5-0.9) H 01/03/23 18:12 GFR Calculation 51.2 mL/min (90-130) L 01/03/23 18:12 Glucose 115 mg/dL (65-115) 01/03/23 18:12 Calculated Osmolality 279 mOsm/kg (285-295) L 01/03/23 18:12 Calcium 9.6 mg/dL (8.5-10.5) 01/03/23 18:12 Magnesium 1.5 mg/dL (1.7-2.3) L 01/03/23 18:12 Total Bilirubin 0.5 mg/dL (0.15-1.2) 01/03/23 18:12 AST 12 U/L (0-32) 01/03/23 18:12 ALT < 5 U/L (0-33) 01/03/23 18:12 Alkaline Phosphatase 124 U/L (35-105) H 01/03/23 18:12 Total Protein 7.7 g/dL (6.6-8.7) 01/03/23 18:12 Albumin 4.5 g/dL (3.5-5.2) 01/03/23 18:12 Globulin 3.2 g/dL (1.3-4.6) 01/03/23 18:12 Vitamin B12 341 pg/mL (232-1245) 01/03/23 18:17 Discharge Plan Discharge Patient Disposition: Admitted As Inpatient Admit Provider: Mylene Isaac Clinical Impression: Hypokalemia, Hypomagnesemia Condition: Stable Coding Level of Care Code ED Analog Ic Design Engineer for Gracie Laguna
--- NOTE | 2023-01-03 18:21 | ECG_ITS ---
[facility] Test Date: 2023-01-03 Pat Name: Nhung Leone Department: Room: Gender: Female Spool Worker: : 1965 Requested By: Brenda Leonard Order Number: [id number] Apoorva MD: Andrew Stock M.D. Measurements Intervals Badger Rate: 101 P: 82 HI: 157 QRS: 92 QRSD: 89 T: 76 QT: 356 QTc: 462 Interpretive Statements SINUS TACHYCARDIA POSSIBLE RIGHT ATRIAL ENLARGEMENT [0.25mV P-WAVE] BORDERLINE RIGHT AXIS DEVIATION [QRS AXIS > 90] NONSPECIFIC ST & T-WAVE ABNORMALITY Compared to ECG 01/03/2023 13:54:32 No significant changes Electronically Signed On 01-03-2023 18:22:09 CDT by Andrew Stock M.D. [email or web address]
[2023-01-03 18:22] LABS: Basophils # 0.1 10^3/uL (0.0-0.1); Basophils % 0.6 %; Eosinophils % 0.3 %; Hematocrit 46.9 % (37.0-47.0); Hemoglobin 15.9 g/dL (11.5-15.3); Lymphocytes # 3.8 10^3/uL (0.8-4.8); Lymphocytes % 29.7 %; Mean Corpuscular HGB Conc 33.9 g/dL (30.0-36.0); Mean Corpuscular Hemoglobin 31.4 pg (28.0-34.0); Mean Corpuscular Volume 92.5 fl (81-99); Monocytes # 0.9 10^3/uL (0.2-0.9); Monocytes % 7.2 %; Neutrophils # 7.81 10^3/uL (1.8-7.7); Neutrophils % 61.8 %; Nucleated Red Blood Cells % 0 %; Platelet Count 332 10^3/cmm (130-400); Red Blood Count 5.07 10^6/uL (4.1-5.3); Red Cell Distribution Width 12.8 % (12.1-15.1); White Blood Count 12.6 10^3/uL (4.0-10.0)
[2023-01-03 18:50] LABS: Alanine Aminotransferase < 5 U/L (0-33); Albumin Level 4.5 g/dL (3.5-5.2); Alkaline Phosphatase 124 U/L (35-105); Aspartate Amino Transferase 12 U/L (0-32); Blood Urea Nitrogen 8 mg/dL (6-20); Calcium 9.6 mg/dL (8.5-10.5); Carbon Dioxide 28 mmol/L (22-29); Globulin 3.2 g/dL (1.3-4.6); Glomerular Filtration Rate 51.2 mL/min (90-130); Glucose 115 mg/dL (65-115); Magnesium 1.5 mg/dL (1.7-2.3); Total Bilirubin 0.5 mg/dL (0.15-1.2); Total Protein 7.7 g/dL (6.6-8.7)
[2023-01-03 19:06] LABS: Chloride 89 mmol/L (98-107); Osmolality Calculated 279 mOsm/kg (285-295); Sodium 135 mmol/L (136-145)
[2023-01-03 19:19] VITALS: BP 121/94; PULSE 91; RESP 25; TEMP 530.9; TEMP 987.7; O2SAT 94
[2023-01-03 19:30] VITALS: PULSE 94; RESP 17; O2SAT 96
[2023-01-03] MEDS: sodium chloride 0.9% 1,000 ML 100 ML IV (19:54)
[2023-01-03] MEDS: potassium chloride oral liq 20 mEq/15 mL UDC 40 MEQ PO (19:54)
[2023-01-03] MEDS: lidocaine 1% 5 ML in potassium chloride premix 100 ML 26.25 ML IV ×2 (19:57→23:46)
[2023-01-03] MEDS: magnesium sulfate premix 4 GM/100 ML PREMIX IV (19:57)
[2023-01-03 20:00] VITALS: BP 117/82; PULSE 83; RESP 18; O2SAT 96
[2023-01-03 21:58] VITALS: BP 116/90; PULSE 80; RESP 18; O2SAT 95
--- NOTE | 2023-01-03 22:12 | P.HP_ITS ---
Providers/Chief Complaint Primary Care Provider: Lauri Krishnan MD Chief Complaint: Denisse sent for low K History of Present Illness Nhung Leone is a 57 year old female was sent from Dr. Peres's clinic for low potassium, patient is on methadone, Lasix 40 mg daily, COPD, chronic steroid- dependent, past medical history of CAD s/p CATE to 95% stenosis of the LAD? resulting in residual thrombus distally which was treated with balloon angioplasty and Aggrastat (02/10/20), h/o anterior STEMI, HFpEF, hypertension, former smoker, obstructive sleep apnea on BiPAP, gastroesophageal reflux disease and multiple other medical problems Patient was sent from the clinic for her hypokalemia, she is endorsing symptoms of muscle cramps, fatigue and lethargy she has not experienced any syncope chest pain or shortness of breath, her heart failure is compensated, patient stating that she does not have any place to go back as she has recently been evicted currently living with a friend, she has not missed any of her medications She takes 40 mEq of potassium along Lasix Review of Systems Const: Denies: fever(s) Eyes: Denies: change in vision ENMT: Denies: throat pain Card: Denies: chest pain Resp: Denies: dyspnea GI: Denies: abdominal pain : Denies: flank pain Musc: Reports: neck pain, back pain and joint pain Skin/Breast: Denies: rash Neuro: Denies: headache(s) Psych: Denies: anxiety Medications/Allergies Home Medications Medication Instructions Recorded Confirmed Last Taken Type prednisone 5 mg tablet 5 mg PO .COMPLEX #30 tabs 02/27/21 01/03/23 10/16/22 Rx fluticasone propionate 50 1 spray intranasal BID@ #15.8 10/09/21 01/03/23 10/16/22 Rx mcg/actuation nasal mL spray,suspension (Flonase Allergy Relief) ropinirole 0.5 mg tablet 0.5 mg PO BID #180 tabs 01/10/22 01/03/23 10/16/22 Rx budesonide 0.5 mg/2 mL suspension See Rx Instructions .Route 01/24/22 01/03/23 10/16/22 Rx for nebulization .COMPLEX #60 vials formoterol fumarate 20 mcg/2 mL See Rx Instructions .Route 01/24/22 01/03/23 10/16/22 Rx solution for nebulization .COMPLEX #60 vials (Perforomist) revefenacin 175 mcg/3 mL solution See Rx Instructions .Route 01/24/22 01/03/23 10/16/22 Rx for nebulization (Yupeapoorvai) .COMPLEX #30 vials albuterol sulfate 90 mcg/actuation 2 puff inhalation Q6H PRN 02/13/22 01/03/23 Unknown Rx aerosol inhaler (ProAir HFA) Shortness Of Breath Or Wheezing #8.5 grams azelastine 137 mcg (0.1 %) nasal 1 spray intranasal BID@0700,2200 02/13/22 01/03/23 10/16/22 Rx spray aerosol 30 days #30 mL codeine 10 mg-guaifenesin 200 mg/5 5 ml PO Q6H PRN cough #200 mL 06/19/22 01/03/23 Unknown Rx mL oral liquid epinephrine 0.15 mg/0.3 mL 0.15 mg (0.3 mL) IM Q30M PRN 06/19/22 01/03/23 Unknown Rx injection,auto-injector (EpiPen Jr anaphylaxis #2 ea 2-Guille) methadone 5 mg tablet 5 mg PO BID 06/21/22 01/03/23 10/16/22 History nitroglycerin 0.4 mg sublingual 0.4 mg sublingual Q5M PRN chest 06/21/22 01/03/23 Unknown Rx tablet pain #25 tabs ezetimibe 10 mg tablet 10 mg PO DAILY #90 tabs 08/08/22 01/03/23 10/16/22 Rx furosemide 40 mg tablet 40 mg PO DAILY #90 tabs 08/08/22 01/03/23 10/16/22 Rx atorvastatin 80 mg tablet 80 mg PO DAILY #90 tabs 08/09/22 01/03/23 10/16/22 Rx clopidogrel 75 mg tablet 75 mg PO DAILY@0730 #90 tabs 08/09/22 01/03/23 10/16/22 Rx losartan 25 mg tablet 25 mg PO DAILY #90 tabs 08/09/22 01/03/23 10/16/22 Rx metoprolol succinate 25 mg 25 mg PO DAILY@0730 #90 tabs 08/09/22 01/03/23 10/16/22 Rx tablet,extended release 24 hr pantoprazole 40 mg tablet,delayed 40 mg PO BID #90 tabs 08/13/22 01/03/23 10/16/22 Rx release montelukast 10 mg tablet 10 mg PO DAILY #90 tabs 08/31/22 01/03/23 10/16/22 Rx (Singulair) hydrocodone 5 mg-acetaminophen 325 1 tab PO Q12H PRN Pain 10/17/22 01/03/23 Unknown History mg tablet spironolactone 25 mg tablet 25 mg PO DAILY 10/17/22 01/03/23 10/16/22 History fluoxetine 40 mg capsule (Prozac) 60 mg PO QAM #90 caps 10/18/22 01/03/23 10/16/22 Rx potassium chloride 20 mEq 40 meq PO BID #10 tabs 10/18/22 01/03/23 Unknown Rx tablet,extended release trazodone 50 mg tablet 50 mg PO .qhs PRN insomnia #14 tabs 10/18/22 01/03/23 Unknown Rx Cockup Splint #1 ea 10/30/22 01/03/23 Unknown Rx omalizumab 150 mg/mL subcutaneous 300 mg (2 mL) SUBCUT .M1Wohid #4 mL 11/13/22 0 01/03/23 Unknown Rx syringe (Xolair) cetirizine 10 mg tablet (Zyrtec) 10 mg PO DAILY 01/03/23 01/03/23 Unknown History Allergies Allergy/AdvReac Type Severity Reaction Status Date / Time doxycycline Allergy Intermediate ALGY-Hives Verified 01/03/23 17:26 Iodinated Contrast Media Allergy Intermediate ALGY-Hives Verified 01/03/23 17:26 codeine Allergy Unknown Unknown Verified 01/03/23 17:26 Sulfa (Sulfonamide Allergy Unknown Unknown Verified 01/03/23 17:26 Antibiotics) gabapentin Allergy Unknown Verified 01/03/23 17:26 PFSH Acute PFSH: Medical History Acute anterior wall [place] Acute exacerbation of CHF (congestive heart failure) Asthma -severe persistent, started xolair 02/04/2020 -follow up with Dr. West CAD (coronary artery disease) (~12/2019) -Known history of CAD with recent stenting of LAD due to anterior wall STEMI in December -Follows up with Dr. Salcedo; f/u in [address] Bass Chronic post-traumatic stress disorder Chronic radicular lumbar pain Closed fracture distal radius and ulna COPD (chronic obstructive pulmonary disease) -no acute exacerbation -does not appear to be oxygen dependent at baseline -recently restarted smoking, 1/2 PPD Diastolic congestive heart failure Encounter for chronic pain management Essential (primary) hypertension -VSS; continue to monitor -continue oral antihypertensives Generalized anxiety disorder GERD (gastroesophageal reflux disease) -on PPI Herniated disc Hyperlipidemia Lesion of ulnar nerve, bilateral Major depressive disorder, 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 New onset of congestive heart failure -Could be secondary to recent STEMI requiring intervention with stenting of LAD last month -Echo: EF=57%, normal systolic and diastolic function, no RWMA, trace TR, tr vaughn [place] -has been on IV diuresis with Lasix; switched to oral lasix -Continue to monitor electrolytes and renal function -Daily weights, monitor ins and outs -BNP elevated at 948 -Chest x-ray reported as unremarkable -Close monitoring of respiratory status, supplemental oxygen as needed Normocytic anemia -Seems to have intermittent normocytic anemia with a baseline hemoglobin of about 10-11, intermittently normal -Has been on dual antiplatelet therapy given recent stenting -Continue to monitor H&H closely; stable so far -iron and ferritin low; start on iron replacement KRISTOFER on CPAP Psychiatric care Severe persistent asthma Sleep apnea, unspecified Surgical History H/O bilateral oophorectomy H/O oral surgery H/O skin graft History of carpal tunnel release History of cholecystectomy Presence of stent in LAD coronary artery (01/23/20) S/P section Family History Father Myocardial infarct, Onset Age: 45 Brother Myocardial infarct, Onset Age: 53 Other CAD (coronary artery disease) Closed fracture distal radius and ulna Social History Smoking and tobacco status: former smoker Quit status (tobacco): has quit using tobacco Year quit tobacco: 2019 - 1PPD x 30 Years Second hand smoke exposure: Yes Alcohol intake: former Substance/Drug Use: never Lives independently: Yes Household members: family Marital status: Current occupational status: disabled Do you think of yourself as: Straight/Heterosexual Current gender identity: Female Vitals/I&O/Wt Last Vital Signs Temp 987.7 F H 01/03/23 19:19 Pulse 80 01/03/23 21:58 Resp 18 01/03/23 21:58 BP 116/90 01/03/23 21:58 Pulse Ox 95 01/03/23 21:58 O2 Del Method Room Air 01/03/23 21:58 01/03/23 01/03/23 01/03/23 06:59 14:59 22:59 Intake Total 100 / 100 Balance 100 / 100 Weight last 48 hrs Weight 58.513 kg Physical Exam Narrative: Euvolemic Awake and alert S1, S2 Currently on room air Pleasant and cooperative GCS 15 Nonfocal neuro exam Appropriate mood and affect Data 01/03/23 18:12 01/03/23 18:12 A&P Assessment and plan (1) Hypokalemia: (2) Hypomagnesemia: (3) Shortness of breath: (4) Insomnia: (5) Nicotine addiction: (6) Smokers' cough: Plan Severe hypokalemia with symptoms Hypomagnesemia Replenish potassium and magnesium 80 mg potassium and 4 g of magnesium given Hold Lasix History of congestive heart failure without acute exacerbation Hold Lasix for now No active chest pain Continue Plavix and atorvastatin Cardiac diet DVT prophylaxis on board Full code Recheck BMP in the morning Attestations Medical Necessity Statement*: Spent more than 2 midnights for management of severe hypokalemia Diagnoses Hypokalemia E87.6 Hypomagnesemia E83.42 Shortness of breath R06.02 Insomnia G47.00 Nicotine addiction F17.200 Smokers' cough J41.0
[2023-01-04] VITALS (74 sets, daily range): BP systolic 95–129; BP diastolic 55–93; PULSE 59–95; RESP 14–32; TEMP 36.6–37; O2SAT 90–98
[2023-01-04] MEDS: heparin 5,000 unit/mL INJ 1 mL 5000 UNIT SUBCUT ×2 (05:35→17:48)
[2023-01-04] MEDS: sodium chloride 0.9% 1,000 ML 100 ML IV ×2 (05:37→16:03)
[2023-01-04 06:16] LABS: Vitamin B12 341 pg/mL (232-1245)
[2023-01-04] MEDS: ipratropium-albuterol 3 mL Neb INHALATION (08:42)
[2023-01-04] MEDS: sennosides-docusate Tablet 1 TAB PO (08:53)
[2023-01-04] MEDS: potassium chloride ER 20 mEq Tablet 40 MEQ PO (08:53)
--- NOTE | 2023-01-04 09:40 | PC.PHAR ---
PT STATES SHE TAKES CARE OF HER OWN MEDICATIONS-PT STATES SHE GETS HER MEDICATIONS FROM MAIL ORDER AND ESTHER BRODERICK-PT STATES SHE USES ALL THE NEBULIZER MEDICATIONS ENTERED-PT STATES SHE IS STILL TAKING LIPITOR 80MG DAILY FILLED 08/08/22 90D/S-PLAVIX 75MG DAILY FILLED 08/08/22 90D/S-EZETIMIBE 10MG DAILY FILLED 06/08/22 90D/S-LOSARTAN 25MG DAILY FILLED 08/08/22 90D/S-METOPROLOL SUCCINATE ER 25MG DAILY FILLED 06/06/22 90D/S-SINGULAIR 10MG DAILY FILLED 05/14/22 90D/S-PT STATES SHE TAKES KCL 40MEQ QAM EXT SHOWS ON 05/15/22 90D/S 40MEQ DAILY-08/08/22 20MEQ DAILY AND RX WRITTEN 10/18/22 40MEQ BID PT STATES ITS ALWAYS CHANGING BUT STATES SHE IS CURRENTLY TAKING 40MEQ DAILY-NOTES ARE MADE IN THE PHARMACY COMMENT
[2023-01-04] MEDS: methadone 10 mg Tablet 5 MG PO ×2 (11:53→21:12)
[2023-01-04 12:40] LABS: Alanine Aminotransferase 6 U/L (0-33); Albumin Level 3.7 g/dL (3.5-5.2); Alkaline Phosphatase 98 U/L (35-105); Anion Gap 10.1 (5-19); Aspartate Amino Transferase 8 U/L (0-32); Blood Urea Nitrogen 8 mg/dL (6-20); Calcium 8.5 mg/dL (8.5-10.5); Carbon Dioxide 32 mmol/L (22-29); Chloride 100 mmol/L (98-107); Globulin 2.4 g/dL (1.3-4.6); Glomerular Filtration Rate 86.2 mL/min (90-130); Glucose 80 mg/dL (65-115); Osmolality Calculated 285 mOsm/kg (285-295); Potassium 3.1 mmol/L (3.5-5.1); Sodium 139 mmol/L (136-145); Total Bilirubin 0.3 mg/dL (0.15-1.2); Total Protein 6.1 g/dL (6.6-8.7)
[2023-01-04] MEDS: lidocaine 1% 5 ML in potassium chloride premix 100 ML 26.25 ML IV (16:02)
--- NOTE | 2023-01-04 16:57 | PM.PN ---
Subjective Subjective: Patient was seen and examined this morning, she denied any muscle cramps nausea vomiting, headache, shortness of breath, dizziness, chest pain. repeat serum potassium done this morning is 3.1. Medications: Medication Review Details: Generic Name Dose Route Start Last Admin Trade Name Suellen PRN Reason Stop Dose Admin Albuterol/Ipratrop ium 3 ml 01/04/23 05:24 01/04/23 08:42 Ipratropium-Albu terol 3 Ml Neb INHALATION 3 ml Q6H PRN Administration SHORTNESS OF RAVEN TH Heparin Sodium (Po rcine) 5,000 unit 01/04/23 05:24 01/04/23 05:35 Heparin 5,000 Un it/Ml Inj 1 Ml SUBCUT 5,000 unit Q12H CARLEY Administration Sodium Chloride 1,000 mls @ 100 m ls/hr 01/03/23 19:30 01/04/23 16:03 Sodium Chloride 0.9% IV 100 mls/hr .Q10H CARLEY Administration Lidocaine HCl 5 ml / Potassium 105 mls @ 26.25 m ls/hr 01/04/23 15:00 01/04/23 16:02 Chloride IV 01/04/23 18:59 26.25 mls/hr ONCE ONE Administration Methadone HCl 5 mg 01/04/23 11:31 01/04/23 11:53 Methadone 10 Mg Tablet PO 5 mg TID PRN Administration PAIN Senna/Docusate Sod ium 1 tab 01/04/23 09:00 01/04/23 08:53 Sennosides-Docus ate Tablet PO 1 tab DAILY CARLEY Administration Vitals/I&O/Wt Last Vital Signs Temp 987.7 F H 01/03/23 19:19 Pulse 73 01/04/23 14:00 Resp 19 H 01/04/23 13:35 BP 102/63 01/04/23 14:30 Pulse Ox 96 01/04/23 14:00 O2 Del Method Room Air 01/04/23 10:53 01/04/23 01/04/23 01/04/23 06:59 14:59 22:59 Intake Total 1204.750 / 1304.750 240.438 / 113.522 3384 / 1240.438 Balance 1204.750 / 1304.750 240.438 / 682.750 0537 / 1240.438 Weight last 48 hrs Weight 58.513 kg Physical Exam HENMT: COMMON NORMALS: normocephalic and atraumatic HEAD & SCALP: normocephalic and atraumatic Resp: COMMON NORMALS: normal respiratory effort, No retractions, No use of accessory muscles and clear to auscultation bilaterally EFFORT & INSPECTION: Yes symmetric chest movement AUSCULTATION: clear to auscultation bilaterally Cardio: COMMON NORMALS: regular rate, regular rhythm, S1 normal heart sound present, S2 normal heart sound present, No gallops present (Cardio), No murmurs present (Cardio), No rub (Cardio) and Peripheral pulses 2+ throughout RATE: regular rate RHYTHM: regular rhythm HEART SOUNDS: S1 normal heart sound present and S2 normal heart sound present PERIPHERAL PULSES: Peripheral pulses 2+ throughout GI: COMMON NORMALS: Normal to inspection, nondistended, normoactive bowel sounds present, Soft to palpation, non-tender, No hepatosplenomegaly present and no masses AUSCULTATION: Yes normoactive bowel sounds PALPATION: Yes Soft to palpation and Yes No hepatosplenomegaly present RECTAL EXAM: deferred Extremity: COMMON NORMALS: no clubbing, cyanosis or edema and no pedal edema Data 01/03/23 18:12 01/04/23 12:11 A&P Assessment and plan (1) Hypokalemia: (2) Hypomagnesemia: (3) Shortness of breath: (4) Insomnia: (5) Nicotine addiction: (6) Smokers' cough: Plan 56-year-old woman with past medical history of CAD s/p CATE to 95% stenosis of the LAD? resulting in residual thrombus distally which was treated with balloon angioplasty and Aggrastat (02/10/20), h/o anterior STEMI, HFpEF, hypertension, former smoker, obstructive sleep apnea on BiPAP was sent from cardiology clinic for low potassium, patient has history of heart failure and she is on Lasix as well as potassium supplement at home, on arrival she was complaining of muscle cramps, fatigue lethargy, currently she is being managed for. Assessment: Severe symptomatic hypokalemia: KG reviewed. For findings of severe hypokalemia. Currently Lasix on hold So far she has received 80 of potassium (40 IV and 40 p.o.) Current serum potassium is 3.1 We will give additional 60 of IV potassium Serum magnesium replacement has been undertaken. History of coronary artery disease: Continue Plavix statin History of HFpEF : Currently compensated Hold Lasix for now CODE STATUS: Full code DVT prophylaxis on subcu heparin Attestations Medical Necessity Statement*: Patient needs to be in hospital for management of severe hypokalemia. Coding Level of Care Code Acute Code for Chg Fwd Diagnoses Hypokalemia E87.6 Hypomagnesemia E83.42 Shortness of breath R06.02 Insomnia G47.00 Nicotine addiction F17.200 Smokers' cough J41.0
[2023-01-04] MEDS: pantoprazole DR 40 mg Tablet PO (17:48)
[2023-01-04] MEDS: lidocaine 1% 5 ML in potassium chloride premix 100 ML 52.5 ML IV (20:51)
[2023-01-04] MEDS: trazodone 50 mg Tablet PO (21:12)
[2023-01-05] VITALS (45 sets, daily range): BP systolic 98–118; BP diastolic 60–68; PULSE 58–113; RESP 15–29; TEMP 36.4; O2SAT 89–94
[2023-01-05] MEDS: sodium chloride 0.9% 1,000 ML 100 ML IV (01:10)
[2023-01-05 03:38] LABS: Basophils # 0.1 10^3/uL (0.0-0.1); Basophils % 0.7 %; Eosinophils # 0.2 10^3/uL (0.0-0.8); Eosinophils % 1.7 %; Hematocrit 34.6 % (37.0-47.0); Hemoglobin 11.2 g/dL (11.5-15.3); Lymphocytes # 3.6 10^3/uL (0.8-4.8); Lymphocytes % 40.7 %; Mean Corpuscular HGB Conc 32.4 g/dL (30.0-36.0); Mean Corpuscular Hemoglobin 30.4 pg (28.0-34.0); Mean Platelet Volume 11.8 fL (7.4-10.4); Monocytes # 0.8 10^3/uL (0.2-0.9); Monocytes % 8.7 %; Neutrophils # 4.19 10^3/uL (1.8-7.7); Nucleated Red Blood Cells % 0 %; Platelet Count 231 10^3/cmm (130-400); Red Blood Count 3.68 10^6/uL (4.1-5.3); Red Cell Distribution Width 13.1 % (12.1-15.1); White Blood Count 8.7 10^3/uL (4.0-10.0)
[2023-01-05 03:49] LABS: Anion Gap 9.6 (5-19); Blood Urea Nitrogen 12 mg/dL (6-20); Calcium 8.3 mg/dL (8.5-10.5); Carbon Dioxide 29 mmol/L (22-29); Chloride 107 mmol/L (98-107); Glucose 100 mg/dL (65-115); Magnesium 1.8 mg/dL (1.7-2.3); Osmolality Calculated 294 mOsm/kg (285-295); Phosphorus 3.3 mg/dL (2.5-4.5); Potassium 3.6 mmol/L (3.5-5.1); Sodium 142 mmol/L (136-145)
[2023-01-05] MEDS: fluoxetine 20 mg Capsule 40 MG PO (05:44)
[2023-01-05] MEDS: heparin 5,000 unit/mL INJ 1 mL 5000 UNIT SUBCUT (05:44)
--- NOTE | 2023-01-05 08:07 | P.DS_ITS ---
Discharge Providers Date of Admission: 01/03/23 21:36 Date of Discharge: January 05, 2023 Attending Provider at Admission: Mylene Isaac MD Attending Provider at Discharge: Horace Gottlieb MD Primary Care Provider: Lauri Krishnan MD Diagnoses at Discharge Discharge Diagnosis (1) Hypokalemia: Status: Acute (2) Hypomagnesemia: Status: Acute (3) Shortness of breath: Status: Acute (4) Insomnia: Status: Acute (5) Nicotine addiction: Status: Acute (6) Smokers' cough: Status: Acute Reason for Visit Reason for Visit: Denisse sent for low K Hospital Course Hospital Course 56-year-old woman with past medical history of CAD s/p CATE to 95% stenosis of the LAD? resulting in residual thrombus distally which was treated with balloon angioplasty and Aggrastat (02/10/20), h/o anterior STEMI, HFpEF, hypertension, former smoker, obstructive sleep apnea on BiPAP was sent from cardiology clinic for low potassium, patient has history of heart failure and she is on Lasix as well as potassium supplement at home, on arrival she was complaining of muscle cramps, fatigue lethargy during the hospital stay she was managed for severe symptomatic hypokalemia, she was on IV as well as oral potassium replacement, Lasix was kept on hold, at the time of discharge serum potassium was normalized, EKG was done telemetry monitoring was done she denied any muscle cramping, nausea vomiting chest pain shortness of breath. Patient was also managed for hypomagnesemia, she received IV magnesium correction. History of HFpEF : Currently compensated, Lasix was kept on hold during the hospital stay, she has been asked to continue to hold Lasix briefly, once he starts gaining more than 3 pounds in 2-3 days, or started becoming short of breath she can resume Lasix with oral potassium.Overall patient responded well to above medical management she was discharged stable condition to home she will continue to follow with her PCP as well as cardiology as outpatient. Physical Exam HENMT: COMMON NORMALS: normocephalic and atraumatic HEAD & SCALP: normocephalic and atraumatic Resp: COMMON NORMALS: normal respiratory effort, No retractions, No use of accessory muscles and clear to auscultation bilaterally EFFORT & INSPECTION: Yes symmetric chest movement AUSCULTATION: clear to auscultation bilaterally Cardio: COMMON NORMALS: regular rate, regular rhythm, S1 normal heart sound present, S2 normal heart sound present, No gallops present (Cardio), No murmurs present (Cardio), No rub (Cardio) and Peripheral pulses 2+ throughout RATE: regular rate RHYTHM: regular rhythm HEART SOUNDS: S1 normal heart sound present and S2 normal heart sound present PERIPHERAL PULSES: Peripheral pulses 2+ throughout GI: COMMON NORMALS: Normal to inspection, nondistended, normoactive bowel sounds present, Soft to palpation, non-tender, No hepatosplenomegaly present and no masses AUSCULTATION: Yes normoactive bowel sounds PALPATION: Yes Soft to palpation and Yes No hepatosplenomegaly present RECTAL EXAM: deferred Extremity: COMMON NORMALS: no clubbing, cyanosis or edema and no pedal edema Discharge Data Studies Completed and Pending Laboratory Results WBC 8.7 10^3/uL (4.0-10.0) 01/05/23 03:07 RBC 3.68 10^6/uL (4.1-5.3) L 01/05/23 03:07 Hgb 11.2 g/dL (11.5-15.3) L 01/05/23 03:07 Hct 34.6 % (37.0-47.0) L 01/05/23 03:07 MCV 94.0 fl (81-99) 01/05/23 03:07 MCH 30.4 pg (28.0-34.0) 01/05/23 03:07 MCHC 32.4 g/dL (30.0-36.0) 01/05/23 03:07 RDW 13.1 % (12.1-15.1) 01/05/23 03:07 Plt Count 231 10^3/cmm (130-400) 01/05/23 03:07 MPV 11.8 fL (7.4-10.4) H 01/05/23 03:07 Neut % (Auto) 48.0 % 01/05/23 03:07 Lymph % (Auto) 40.7 % 01/05/23 03:07 [place] % (Auto) 8.7 % 01/05/23 03:07 Eos % (Auto) 1.7 % 01/05/23 03:07 Baso % (Auto) 0.7 % 01/05/23 03:07 Neut # (Auto) 4.19 10^3/uL (1.8-7.7) 01/05/23 03:07 Lymph # (Auto) 3.6 10^3/uL (0.8-4.8) 01/05/23 03:07 [place] # (Auto) 0.8 10^3/uL (0.2-0.9) 01/05/23 03:07 Eos # (Auto) 0.2 10^3/uL (0.0-0.8) 01/05/23 03:07 Baso # (Auto) 0.1 10^3/uL (0.0-0.1) 01/05/23 03:07 Nucleated RBC % (auto) 0 % 01/05/23 03:07 Nucleated RBCs # 0.0 /100WBC 01/05/23 03:07 Sodium 142 mmol/L (136-145) 01/05/23 03:07 Potassium 3.6 mmol/L (3.5-5.1) 01/05/23 03:07 Chloride 107 mmol/L (98-107) 01/05/23 03:07 Carbon Dioxide 29 mmol/L (22-29) 01/05/23 03:07 Anion Gap 9.6 (5-19) 01/05/23 03:07 BUN 12 mg/dL (6-20) 01/05/23 03:07 Creatinine 0.6 mg/dL (0.5-0.9) 01/05/23 03:07 GFR Calculation 103.0 mL/min (90-130) 01/05/23 03:07 Glucose 100 mg/dL (65-115) 01/05/23 03:07 Calculated Osmolality 294 mOsm/kg (285-295) 01/05/23 03:07 Calcium 8.3 mg/dL (8.5-10.5) L 01/05/23 03:07 Phosphorus 3.3 mg/dL (2.5-4.5) 01/05/23 03:07 Magnesium 1.8 mg/dL (1.7-2.3) 01/05/23 03:07 Total Bilirubin 0.3 mg/dL (0.15-1.2) 01/04/23 12:11 AST 8 U/L (0-32) 01/04/23 12:11 ALT 6 U/L (0-33) 01/04/23 12:11 Alkaline Phosphatase 98 U/L (35-105) 01/04/23 12:11 Total Protein 6.1 g/dL (6.6-8.7) L D 01/04/23 12:11 Albumin 3.7 g/dL (3.5-5.2) 01/04/23 12:11 Globulin 2.4 g/dL (1.3-4.6) 01/04/23 12:11 Vitamin B12 341 pg/mL (232-1245) 01/03/23 18:17 Vitals Last Vital Signs Temp 97.6 F 01/05/23 03:19 Pulse 58 L 01/05/23 06:00 Resp 16 01/05/23 03:20 BP 108/60 01/05/23 03:20 Pulse Ox 92 01/05/23 03:20 O2 Del Method Room Air 01/05/23 03:19 Discharge Plan Discharge Patient Disposition: Home Condition: Stable Prescriptions: Continued methadone 5 mg tablet 5 mg PO TID nitroglycerin 0.4 mg tablet, sublingual 0.4 mg SUBLINGUAL Q5M PRN (Reason: chest pain) Qty: 25 6RF Rx Instructions: do not exceed 3 doses per episode cetirizine [Zyrtec] 10 mg tablet 10 mg PO QAM azelastine 137 mcg (0.1 %) aerosol,spray 1 spray INTRANASAL BID@0700,2200 30 Days Qty: 30 4RF Rx Instructions: administer into each nostril albuterol sulfate [ProAir HFA] 90 mcg/actuation HFA aerosol inhaler 2 puff INHALATION Q6H PRN (Reason: Shortness Of Breath Or Wheezing) Qty: 8.5 3RF epinephrine [EpiPen Jr 2-Guille] 0.15 mg/0.3 mL auto-injector 0.15 mg IM Q30M PRN (Reason: anaphylaxis) Qty: 2 1RF Rx Instructions: do not exceed 12 doses per 24 hrs (DME) Cockup Splint See Rx Instructions .Route .MEDSUPPLY Qty: 1 0RF Rx Instructions: As directed prednisone 5 mg tablet 5 mg PO .COMPLEX Qty: 30 3RF Hold Instructions: Resume on 10/25/22. Rx Instructions: TAKE 5MG BY MOUTH EVERY OTHER DAY NEEDED Flonase Allergy Relief 50 mcg/actuation spray,suspension 1 spray INTRANASAL BID@ Qty: 15.8 3RF Rx Instructions: administer into each nostril Perforomist 20 mcg/2 mL solution for nebulization See Rx Instructions .ROUTE .COMPLEX Qty: 60 11RF Dose Instruction: USE 1 VIAL IN NEBULIZER EVERY 12 HOURS - Morning and Evening Rx Instructions: USE 1 VIAL IN NEBULIZER EVERY 12 HOURS - Morning and Evening Yupelri 175 mcg/3 mL solution for nebulization See Rx Instructions .ROUTE .COMPLEX Qty: 30 11RF Dose Instruction: USE 1 VIAL IN NEBULIZER DAILY - DO NOT MIX WITH OTHER NEB MEDS, USE BEFORE OR AFTER Rx Instructions: USE 1 VIAL IN NEBULIZER DAILY - DO NOT MIX WITH OTHER NEB MEDS, USE BEFORE OR AFTER ezetimibe 10 mg tablet 10 mg PO DAILY Qty: 90 1RF atorvastatin 80 mg tablet 80 mg PO DAILY Qty: 90 1RF clopidogrel 75 mg tablet 75 mg PO DAILY@07 Qty: 90 1RF losartan 25 mg tablet 25 mg PO DAILY Qty: 90 1RF metoprolol succinate 25 mg tablet extended release 24 hr 25 mg PO DAILY@0730 Qty: 90 1RF pantoprazole 40 mg tablet,delayed release (DR/EC) 40 mg PO BID Qty: 90 2RF Singulair 10 mg tablet 10 mg PO DAILY Qty: 90 1RF Xolair 150 mg/mL syringe 300 mg SUBCUT .[id number] Qty: 4 6RF Rx Instructions: AR# [id number] approved through 06/30/22 hydrocodone-acetaminophen 5-325 mg tablet 0.5 tab PO Q12H MDD 1 TAB PRN (Reason: Pain) budesonide 0.5 mg/2 mL Suspension For Nebulization 0.5 mg inhalation BID fluoxetine 40 mg capsule 40 mg PO QAM trazodone 50 mg tablet 50 mg PO BEDTIME PRN (Reason: Sleep) Breztri Aerosphere 160-9-4.8 mcg/actuation HFA aerosol inhaler 2 inh INHALATION BID potassium chloride 20 mEq tablet,ER particles/crystals 40 meq PO QAM Held furosemide 40 mg tablet 40 mg PO DAILY Qty: 90 1RF Hold Instructions: Resume on 11/01/22. Discharge Orders: Discharge Order (Routine); Ordered 01/05/23 Ordered By: Horace Gottlieb Referrals: Lauri Krishnan MD [Primary Care Provider] - (Please call Dr. Krishnan Office on Saturday at [phone] to schedule a follow up appointment for 7-10 days. Thank you.) Patient Instructions: Heart Failure (DC), Hypokalemia (DC), Hypomagnesemia (DC), CHF Stoplight, Opioid Safety Discharge Attestations Time Spent in Discharge Care*: less than 30 min Status at Discharge: Cognitive status at discharge: cognitively intact , Behavioral status at discharge: cooperative and independent in ADL's , Quality Metrics Clinical Quality Measures [ No reported AMI, CVA or VTE this stay] Coding Level of Care Code Acute Code for Chg Fwd Diagnoses Hypokalemia E87.6 Hypomagnesemia E83.42 Shortness of breath R06.02 Insomnia G47.00 Nicotine addiction F17.200 Smokers' cough J41.0
[2023-01-05] MEDS: ezetimibe 10 mg Tablet PO (08:30)
[2023-01-05] MEDS: atorvastatin 40 mg Tablet 80 MG PO (08:30)
[2023-01-05] MEDS: pantoprazole DR 40 mg Tablet PO (08:30)
[2023-01-05] MEDS: clopidogrel 75 mg Tablet PO (08:30)
--- NOTE | 2023-01-05 09:43 | PC.NURSE ---
Discharge Note Patient discharged to home via PV accompanied by sister. Discharge instructions reviewed with patient and/or human resources representative. Mobile pharmacy medications and/or prescriptions provided. Belongings/home medications returned.
== END 2023-01-05 09:00 | disposition home or self-care (01) | DRG 641 ==
LOC: ER 21:36 → ER IP 23:24 → ICU 01-04 09:52 → CSU 01-04 20:04
PROVIDERS: Emergency Medicine; Internal Medicine; Admitting Provider Internal Medicine; Emergency Provider Emergency Medicine; PCP Family Medicine; Visit Provider Internal Medicine
DX: E87.6 Hypokalemia (principal); I50.32 Chronic diastolic (congestive) heart failure; F33.9 Major depressive disorder, recurrent, unspecified; I25.10 Atherosclerotic heart disease of native coronary artery without angina pectoris; Z95.5 Presence of coronary angioplasty implant and graft; I25.2 Old myocardial infarction; I11.0 Hypertensive heart disease with heart failure; Z87.891 Personal history of nicotine dependence; G47.33 Obstructive sleep apnea (adult) (pediatric); Z99.89 Dependence on other enabling machines and devices; E83.42 Hypomagnesemia; Z79.51 Long term (current) use of inhaled steroids; Z79.52 Long term (current) use of systemic steroids; Z79.02 Long term (current) use of antithrombotics/antiplatelets; Z79.891 Long term (current) use of opiate analgesic; J44.9 Chronic obstructive pulmonary disease, unspecified; J45.998 Other asthma; F43.12 Post-traumatic stress disorder, chronic; F41.1 Generalized anxiety disorder; E78.5 Hyperlipidemia, unspecified
CPT/HCPCS: 36415; 80048; 80053; 82607; 83735; 84100; 85025; 93005; 94640; 96365; 96366; 96367; 96372; 99214; 99291; J1644; J3475; J3480; J7030

== ENCOUNTER 2023-01-14 14:56 | Outpatient (CLI) | payer MEDICARE, MEDICAID, SELFPAY ==
--- NOTE | 2023-01-14 15:23 | XR_ITS ---
WS: [id number] SCREENING DEXA SCAN [employer] CLINICAL INFORMATION: POSTMENOPAUSAL COMPARISON: None. FINDINGS: The L1-L4 bone mineral density measures 1.051 g/cm2. This corresponds to a T score score of -1.1 and Z score of 0.1. Left femoral neck bone mineral density measures 0.729 g/cm2. This corresponds to a T score of -2.2 an d Z score of -1.3. Right femoral neck bone mineral density measures 0.743 g/cm2. This corresponds to a T score -2.1of an d Z score of -1.2. Mean femoral neck bone mineral density measures 0.736 g/cm2. This corresponds to a T score of -2.2 an d Z score of -1.2. XR/XR DEXA axial skeleton* [id number] IMPRESSION: Osteopenia lumbar spine. Osteopenia femoral necks. Patient's FRAX calculated 10 year probability for major osteoporotic fracture i s 24.1 % and osteoporotic hip fracture is 6.5%.
--- NOTE | 2023-01-14 15:39 | MM_ITS ---
WS: [id number] BILATERAL 3D TOMOSYNTHESIS DIGITAL SCREENING MAMMOGRAPHY WITH CAD CLINICAL INFORMATION: SCREENING HISTORY: Screening mammogram. No current complaints. COMPARISON: 2007 TECHNIQUE: Bilateral CC and MLO views. FINDINGS: Scattered fibroglandular densities bilaterally. No suspicious focal mass, asymmetry, calcifications, or architectural distortion. No evidence of malignancy. Chronic volume loss and parenchymal scarring RIGHT breast. MM/[place] [id number] IMPRESSION: BI-RADS: 2-Benign FOLLOW UP: 1 Year Follow-up Recommend return to annual screening mammography.
== END 2023-01-14 14:57 | disposition home or self-care (01) ==
PROVIDERS: PCP Family Medicine; Visit Provider Nurse Practitioner Family
DX: Z12.31 Encounter for screening mammogram for malignant neoplasm of breast (principal); Z78.0 Asymptomatic menopausal state; M85.89 Other specified disorders of bone density and structure, multiple sites
CPT/HCPCS: 77063; 77067; 77080

== ENCOUNTER 2023-01-17 10:51 | Outpatient (CLI) | payer MEDICARE, MEDICAID, SELFPAY ==
[2023-01-17 11:14] VITALS: PULSE 77; RESP 18; O2SAT 98
[2023-01-17] MEDS: albuterol 2.5 mg/3 mL Neb INHALATION (11:14)
[2023-01-17 11:19] VITALS: PULSE 80
== END 2023-01-17 10:52 | disposition home or self-care (01) ==
LOC: RT 10:53
PROVIDERS: PCP Family Medicine; Visit Provider Internal Medicine Pulmonary Disease
DX: J44.9 Chronic obstructive pulmonary disease, unspecified (principal); J84.9 Interstitial pulmonary disease, unspecified; J44.0 Chronic obstructive pulmonary disease with (acute) lower respiratory infection; Z86.16 Personal history of COVID-19
CPT/HCPCS: 94060; 94726; 94729; J7613

== ENCOUNTER → 2023-07-18 09:34 | Outpatient (BNVA) | payer MEDICARE, MEDICAID, SELFPAY | PROVIDERS: PCP Family Medicine; Visit Provider Internal Medicine Pulmonary Disease | DX: J45.51 Severe persistent asthma with (acute) exacerbation (principal); J30.9 Allergic rhinitis, unspecified; J43.9 Emphysema, unspecified; K11.7 Disturbances of salivary secretion; Z87.891 Personal history of nicotine dependence | CPT/HCPCS: 99214 ==

== ENCOUNTER → 2023-07-19 09:12 | Outpatient (BNVA) | payer MEDICARE, MEDICAID, SELFPAY | PROVIDERS: PCP Family Medicine; Visit Provider Internal Medicine Cardiovascular Disease | DX: E78.2 Mixed hyperlipidemia (principal); I11.0 Hypertensive heart disease with heart failure; I50.30 Unspecified diastolic (congestive) heart failure; F41.1 Generalized anxiety disorder; D50.9 Iron deficiency anemia, unspecified; E87.6 Hypokalemia; J96.12 Chronic respiratory failure with hypercapnia; J43.9 Emphysema, unspecified; R00.0 Tachycardia, unspecified; I25.119 Atherosclerotic heart disease of native coronary artery with unspecified angina pectoris; Z95.5 Presence of coronary angioplasty implant and graft; F17.200 Nicotine dependence, unspecified, uncomplicated | CPT/HCPCS: 99214 ==

== ENCOUNTER 2023-07-26 11:06 | Emergency (ER) | payer MEDICARE, MEDICAID, SELFPAY ==
[2023-07-26 11:12] VITALS: BP 110/81; PULSE 106; RESP 20; TEMP 36.8; O2SAT 93
--- NOTE | 2023-07-26 11:19 | CT_ITS ---
WS: [id number] CT ABDOMEN PELVIS TECHNIQUE: Contrast-enhanced CT of the abdomen and pelvis with coronal and sagittal reformatted image s. CLINICAL INFORMATION: abd pain COMPARISON: CT 12/20/2021 DLP: 589.[address] scans at [facility] use at least one of these dose optimization techniques: automated e xposure control; mA and/or kV adjustment per patient size (includes targeted exams where dose is matc hed to clinical indication); or iterative reconstruction. FINDINGS: Prior hysterectomy and appendectomy. Bronchiectasis in the lung bases. A few tiny calcified granuloma s. Mild diffuse fatty infiltration of the liver. Small incidental hepatic cyst is stable. Cholecystec laura. Normal portal vein splenic vein. Small esophageal hiatal hernia with herniated omental fat. Nor mal pancreatic parenchymal enhancement. Normal caliber abdominal aorta. Celiac and SMA are patent. Mi ld aortic calcification. Adrenal glands are normal. Normal renal parenchymal enhancement. No hydronep hrosis. There are few sigmoid diverticuli. No evidence of acute diverticulitis. No evidence of high-grade sma ll or large bowel obstruction. Tiny fat-containing umbilical hernia. No herniated bowel. Mild lumbar curve. Mild disc bulging L2-L5. Disc space narrowing worse at L4-L5 and L5-S1. Evidence of prior blad ceasar suspension procedure. No other suspicious findings. IMPRESSION: 1. No acute findings in the abdomen or pelvis. 2. Prior cholecystectomy and reported appendectomy. 3. Prior hysterectomy. 4. Evidence of prior bladder suspension procedure. 5. Diffuse fatty infiltration of the liver. 6. Small esophageal hiatal hernia with herniated omental fat. 7. No other suspicious findings.
--- NOTE | 2023-07-26 11:19 | XR_ITS ---
WS: [id number] XR chest 1V portable [id number] REASON FOR EXAM: cough FINDINGS: Chest is unchanged compared to 10/17/2022. The heart and mediastinum are within normal limits. Calcified granulomas disease in both hemithoraces. There is flattening of the hemidiaphragms and irregular interstitium and lucencies in the upper lung sutton compatible with obstructive lung disease. No acute or subacute pulmonary parenchymal or pleural abnormality. IMPRESSION: Probable obstructive lung disease without acute or subacute abnormality.
--- NOTE | 2023-07-26 11:20 | ED_ITS ---
HPI - Abdominal Pain 2 General: Chief Complaint: Abdominal Pain Stated Complaint: abd pain Time Seen by Provider: 07/26/23 11:13 Source: patient Mode of arrival: ambulatory Limitations: no limitations History of Present Illness: 58-year-old female who states she been h aving left upper quadrant abdominal pain over the last few days states pains been very sharp in nature she is seen at Dr. Krishnan office she states that she had a hernia that she believes he had reduced she still having pain though she rates a 6 out of 10 she had a slight cough as well denies any fever denies any vomiting or diarrhea. Associated Symptoms: Denies chills, diarrhea, fever(s), nausea and vomiting Review of Systems 2 Const: Denies: fever(s), chills, body aches or change in appetite ENMT: Denies: throat pain or dental pain Card: Denies: chest pain Resp: Reports: non-productive cough; Denies: dyspnea GI: Reports: abdominal pain; Denies: nausea, vomiting or diarrhea Musc: Denies: neck pain or back pain Skin/Breast: Denies: rash Neuro: Denies: headache(s) PFSH ED 2 PFSH: Medical History Nicotine addiction CAD (coronary artery disease) (~12/2019) -Known history of CAD with recent stenting of LAD due to anterior wall STEMI in December -Follows up with Dr. Salcedo; f/u in [address] Bass Essential (primary) hypertension -VSS; continue to monitor -continue oral antihypertensives Hypomagnesemia Hypokalemia Encounter for chronic pain management Diastolic congestive heart failure Shortness of breath Severe persistent asthma Closed fracture distal radius and ulna Insomnia Hyperlipidemia Smokers' cough Acute exacerbation of CHF (congestive heart failure) Normocytic anemia -Seems to have intermittent normocytic anemia with a baseline hemoglobin of about 10-11, intermittently normal -Has been on dual antiplatelet therapy given recent stenting -Continue to monitor H&H closely; stable so far -iron and ferritin low; start on iron replacement Asthma -severe persistent, started xolair 02/04/2020 -follow up with Dr. West New onset of congestive heart failure -Could be secondary to recent STEMI requiring intervention with stenting of LAD last month -Echo: EF=57%, normal systolic and diastolic function, no RWMA, trace TR, trace MS -has been on IV diuresis with Lasix; switched to oral lasix -Continue to monitor electrolytes and renal function -Daily weights, monitor ins and outs -BNP elevated at 948 -Chest x-ray reported as unremarkable -Close monitoring of respiratory status, supplemental oxygen as needed Methadone maintenance therapy patient Acute anterior wall MN Chronic post-traumatic stress disorder Generalized anxiety disorder Major depressive disorder, recurrent severe without psychotic features Chronic radicular lumbar pain Herniated disc Sleep apnea, unspecified Lesion of ulnar nerve, bilateral COPD (chronic obstructive pulmonary disease) -no acute exacerbation -does not appear to be oxygen dependent at baseline -recently restarted smoking, 1/2 PPD KRISTOFER on CPAP GERD (gastroesophageal reflux disease) -on PPI Surgical History H/O oral surgery S/P section Presence of stent in LAD coronary artery (01/23/20) H/O bilateral oophorectomy History of cholecystectomy History of carpal tunnel release H/O skin graft Family History Father Myocardial infarct, Onset Age: 45 Brother Myocardial infarct, Onset Age: 53 Other CAD (coronary artery disease) Closed fracture distal radius and ulna Social History Smoking and tobacco/nicotine status: former use of tobacco/nicotine Quit status (tobacco/nicotine): has quit using Year quit tobacco: 2020 - 1PPD x 30 Years Second hand smoke exposure: Yes Alcohol intake: former Substance/Drug Use: never Lives independently: Yes Household members: family Marital status: Current occupational status: disabled Do you think of yourself as: Straight/Heterosexual Current gender identity: Female Physical Exam 2 Const: COMMON NORMALS: no acute distress, patient oriented x3 and healthy appearing HENMT: COMMON NORMALS: normocephalic and atraumatic HEAD & SCALP: n ormocephalic and atraumatic Neck/C-Spine: COMMON NORMALS: full ROM and supple Chest: COMMONS NORMALS: normal inspection of the chest Resp: COMMON NORMALS: normal respiratory effort, No retractions, No use of accessory muscles and clear to auscultation bilaterally AUSCULTATION: clear to auscultation bilaterally Cardio: COMMON NORMALS: regular rate, regular rhythm and No murmurs present (Cardio) RATE: regular rate RHYTHM: regular rhythm GI: COMMON NORMALS: Normal to inspection, nondistended, normoactive bowel sounds present, Soft to palpation and no masses PALPATION: Yes Soft to palpation and Yes Tenderness to palpation present (GI) Details: LUQ Extremity: COMMON NORMALS: normal to inspection and full ROM Neuro: COMMON NORMALS: patient oriented x3, moves all extremities and no focal motor deficits Psych: COMMON NORMALS: mental status grossly normal, Normal thought process present and cooperative THOUGHT PROCESS: Normal thought process present Skin: COMMON NORMALS: no rashes or lesions noted and no wounds GENERAL SKIN EXAM: no rashes or lesions noted Course 2 Vital Signs: Vital signs: Vital Signs Temperature 98.2 F 07/26/23 11:12 Pulse Rate 86 07/26/23 12:12 Respiratory Rate 18 07/26/23 11:32 Blood Pressure 110/81 07/26/23 11:12 Pulse Oximetry 98 07/26/23 12:12 Oxygen Delivery Me thod Room Air 07/26/23 12:12 Oxygen Flow Rate 2 07/26/23 11:32 MDM - Abdominal Pain Medical Decision Making Patient presents with abdominal pain CT scan here is normal her pain has improved she has no signs of pneumonia either she is stable for discharge she is follow-up with PCP and return if worsening she understands agrees with plan. Lab Data I reviewed the patient's lab results. 07/26/23 11:27 07/26/23 11:27 Labs/Radiology: Laboratory Results WBC 14.23 10^3/uL (3.29-11.43) H 07/26/23 11:27 RBC 4.49 10^6/uL (3.85-5.65) 07/26/23 11:27 Hgb 13.80 g/dL (11.27-16.99) 07/26/23 11:27 Hct 40.9 % (36-47) 07/26/23 11:27 MCV 91.1 fl (85-98) 07/26/23 11:27 MCH 30.7 pg (27-33) 07/26/23 11: MCHC 33.7 g/dL (30-55) 07/26/23 11:27 RDW 12.6 % (12.1-15.1) 07/26/23 11:27 Plt Count 303 10^3/cmm (157-399) 07/26/23 11:27 MPV 11.5 fL (7.4-10.4) H 07/26/23 11:27 Neut % (Auto) 73.8 % 07/26/23 11:27 Lymph % (Auto) 17.4 % 07/26/23 11:27 [place] % (Auto) 7.1 % 07/26/23 11:27 Eos % (Auto) 0.8 % 07/26/23 11:27 Baso % (Auto) 0.5 % 07/26/23 11:27 Neut # (Auto) 10.50 10^3/uL (1.8-7.7) H 07/26/23 11:27 Lymph # (Auto) 2.5 10^3/uL (0.8-4.8) 07/26/23 11:27 [place] # (Auto) 1.0 10^3/uL (0.2-0.9) H 07/26/23 11:27 Eos # (Auto) 0.1 10^3/uL (0.0-0.8) 07/26/23 11:27 Baso # (Auto) 0.1 10^3/uL (0.0-0.1) 07/26/23 11:27 Nucleated RBC % (auto) 0 % 07/26/23 11: Nucleated RBCs # 0.0 /100WBC 07/26/23 11:27 Sodium 141 mmol/L (136-145) 07/26/23 11:27 Potassium 3.2 mmol/L (3.5-5.1) L 07/26/23 11:27 Chloride 102 mmol/L (98-107) 07/26/23 11:27 Carbon Dioxide 26 mmol/L (22-29) 07/26/23 11:27 Anion Gap 16.2 (5-19) 07/26/23 11:27 BUN 10 mg/dL (6-20) 07/26/23 11:27 Creatinine 0.6 mg/dL (0.5-0.9) 07/26/23 11:27 GFR Calculation 102.7 mL/min (90-130) 07/26/23 11:27 Glucose 104 mg/dL (65-115) 07/26/23 11:27 Calculated Osmolality 291 mOsm/kg (285-295) 07/26/23 11:27 Lactic Acid 1.1 mmol/L (0.5-2.2) 07/26/23 11:27 Calcium 9.5 mg/dL (8.5-10.5) 07/26/23 11:27 Total Bilirubin 0.3 mg/dL (0.15-1.2) 07/26/23 11:27 AST 7 U/L (0-32) 07/26/23 11:27 ALT 6 U/L (0-33) 07/26/23 11:27 Alkaline Phosphatase 137 U/L (35-105) H 07/26/23 11:27 Total Protein 7.2 g/dL (6.6-8.7) 07/26/23 11: Albumin 3.8 g/dL (3.5-5.2) 07/26/23 11:27 Globulin 3.4 g/dL (1.3-4.6) 07/26/23 11: Lipase 25 U/L (13-60) 07/26/23 11:27 All radiology interpretation(s) finalized by discharge Discharge Plan Discharge Patient Disposition: Home Clinical Impression: Abdominal pain Condition: Stable Prescriptions: No Action nitroglycerin 0.4 mg tablet, sublingual 0.4 mg SUBLINGUAL Q5M PRN (Reason: chest pain) Qty: 25 6RF Rx Instructions: do not exceed 3 doses per episode cetirizine [Zyrtec] 10 mg tablet 10 mg PO QAM ipratropium-albuterol 0.5 mg-3 mg(2.5 mg base)/3 mL solution for nebulization 3 ml inhalation Q4H PRN (Reason: wheezing) Qty: 180 6RF azelastine 137 mcg (0.1 %) aerosol,spray 1 spray INTRANASAL BID@0700,2200 30 Days Qty: 30 4RF Rx Instructions: administer into each nostril albuterol sulfate [ProAir HFA] 90 mcg/actuation HFA aerosol inhaler 2 puff INHALATION Q6H PRN (Reason: Shortness Of Breath Or Wheezing) Qty: 8.5 3RF epinephrine [EpiPen Jr 2-Guille] 0.15 mg/0.3 mL auto-injector 0.15 mg IM Q30M PRN (Reason: anaphylaxis) Qty: 2 1RF Rx Instructions: do not exceed 12 doses per 24 hrs (DME) Cockup Splint See Rx Instructions .Route .MEDSUPPLY Qty: 1 0RF Rx Instructions: As directed Flonase Allergy Relief 50 mcg/actuation spray,suspension 1 spray INTRANASAL BID@07,22 Qty: 15.8 3RF Rx Instructions: administer into each nostril Perforomist 20 mcg/2 mL solution for nebulization See Rx Instructions .ROUTE .COMPLEX Qty: 60 11RF Dose Instruction: USE 1 VIAL IN NEBULIZER EVERY 12 HOURS - Morning and Evening Rx Instructions: USE 1 VIAL IN NEBULIZER EVERY 12 HOURS - Morning and Evening Yupelri 175 mcg/3 mL solution for nebulization See Rx Instructions .ROUTE .COMPLEX Qty: 30 11RF Dose Instruction: USE 1 VIAL IN NEBULIZER DAILY - DO NOT MIX WITH OTHER NEB MEDS, USE BEFORE OR AFTER Rx Instructions: USE 1 VIAL IN NEBULIZER DAILY - DO NOT MIX WITH OTHER NEB MEDS, USE BEFORE OR AFTER atorvastatin 80 mg tablet 80 mg PO DAILY Qty: 90 1RF clopidogrel 75 mg tablet 75 mg PO DAILY@0730 Qty: 90 1RF losartan 25 mg tablet 25 mg PO DAILY Qty: 90 1RF pantoprazole 40 mg tablet,delayed release (DR/EC) 40 mg PO BID Qty: 90 2RF Singulair 10 mg tablet 10 mg PO DAILY Qty: 90 1RF metoprolol succinate 25 mg tablet extended release 24 hr 25 mg PO DAILY@0730 Qty: 90 1RF ezetimibe 10 mg tablet 10 mg PO DAILY Qty: 90 3RF budesonide 0.5 mg/2 mL Suspension For Nebulization 0.5 mg inhalation BID fluoxetine 40 mg capsule 40 mg PO QAM trazodone 50 mg tablet 50 mg PO BEDTIME PRN (Reason: Sleep) Breztri Aerosphere 160-9-4.8 mcg/actuation HFA aerosol inhaler 2 inh INHALATION BID potassium chloride 20 mEq tablet,ER particles/crystals 40 meq PO QAM furosemide 40 mg tablet 40 mg PO EVERY OTHER DAY prednisone 5 mg tablet 5 mg PO EVERY OTHER DAY Xolair 150 mg/mL syringe 300 mg SUBCUT Q14D hydrocodone-acetaminophen 5-325 mg tablet See Rx Instructions .ROUTE .COMPLEX Rx Instructions: 1/2 tab every 12 hours- max dose 1 tab daily as needed methadone 5 mg tablet 5 mg PO TID mirtazapine 7.5 mg tablet 7.5 mg PO DAILY Discharge Orders: Discharge ED (Routine); Ordered 07/26/23 Ordered By: Brenda Leonard Referrals: Lauri Krishnan MD [Primary Care Provider] - 1-3 days Discharge Diet: Advance as tolerated Discharge Activity: Resume usual activity Patient Instructions: Abdominal Pain (ED) Coding Level of Care Code ED Liquefaction And Regasification Helper for Gracie Laguna
[2023-07-26] MEDS: ondansetron 2 mg/ML SDV 2 mL 4 MG IVP (11:26)
[2023-07-26 11:27] VITALS: RESP 16; O2SAT 94
[2023-07-26] MEDS: morphine 4 mg/mL SDV 1 mL IVP (11:27)
[2023-07-26 11:30] VITALS: O2SAT 88
--- NOTE | 2023-07-26 11:31 | PC.NURSE ---
pts oxygen saturation decreased to 88% after morphine administration, this nurse applied 2L NC, oxygen sat currently 93% on 2L NC.
[2023-07-26 11:32] VITALS: PULSE 103; RESP 18; O2SAT 93
[2023-07-26] MEDS: methylPREDNISolone sod succ 40 mg/mL INJ IVP (11:39)
[2023-07-26] MEDS: diphenhydrAMINE 50 mg/mL SDV 1mL IVP (11:39)
[2023-07-26 11:42] LABS: Basophils # 0.1 10^3/uL (0.0-0.1); Basophils % 0.5 %; Eosinophils # 0.1 10^3/uL (0.0-0.8); Eosinophils % 0.8 %; Hematocrit 40.9 % (36-47); Lymphocytes # 2.5 10^3/uL (0.8-4.8); Lymphocytes % 17.4 %; Mean Corpuscular HGB Conc 33.7 g/dL (30-55); Mean Corpuscular Hemoglobin 30.7 pg (27-33); Mean Corpuscular Volume 91.1 fl (85-98); Mean Platelet Volume 11.5 fL (7.4-10.4); Monocytes % 7.1 %; Neutrophils % 73.8 %; Nucleated Red Blood Cells % 0 %; Platelet Count 303 10^3/cmm (157-399); Red Blood Count 4.49 10^6/uL (3.85-5.65); Red Cell Distribution Width 12.6 % (12.1-15.1); White Blood Count 14.23 10^3/uL (3.29-11.43)
[2023-07-26 11:52] LABS: Lactic Sepsis W/Reflex 1.1 mmol/L (0.5-2.2)
[2023-07-26 11:53] LABS: Alanine Aminotransferase 6 U/L (0-33); Albumin Level 3.8 g/dL (3.5-5.2); Alkaline Phosphatase 137 U/L (35-105); Anion Gap 16.2 (5-19); Aspartate Amino Transferase 7 U/L (0-32); Blood Urea Nitrogen 10 mg/dL (6-20); Calcium 9.5 mg/dL (8.5-10.5); Carbon Dioxide 26 mmol/L (22-29); Chloride 102 mmol/L (98-107); Globulin 3.4 g/dL (1.3-4.6); Glomerular Filtration Rate 102.7 mL/min (90-130); Glucose 104 mg/dL (65-115); Lipase 25 U/L (13-60); Osmolality Calculated 291 mOsm/kg (285-295); Potassium 3.2 mmol/L (3.5-5.1); Sodium 141 mmol/L (136-145); Total Bilirubin 0.3 mg/dL (0.15-1.2); Total Protein 7.2 g/dL (6.6-8.7)
[2023-07-26] MEDS: iohexol 350 mg/mL 500 mL Btl (per mL) IV (12:00)
[2023-07-26 12:12] VITALS: PULSE 86; O2SAT 98
[2023-07-26] MEDS: dexamethasone 10 mg/mL INJ IVP (12:40)
[2023-07-26 12:43] VITALS: BP 102/64; PULSE 85; RESP 16; O2SAT 92
== END 2023-07-26 12:48 | disposition home or self-care (01) ==
PROVIDERS: Emergency Provider Emergency Medicine; PCP Family Medicine
DX: R10.12 Left upper quadrant pain (principal); Z79.02 Long term (current) use of antithrombotics/antiplatelets; Z79.891 Long term (current) use of opiate analgesic; Z87.891 Personal history of nicotine dependence; I25.10 Atherosclerotic heart disease of native coronary artery without angina pectoris; I11.0 Hypertensive heart disease with heart failure; I50.9 Heart failure, unspecified; E78.5 Hyperlipidemia, unspecified; I25.2 Old myocardial infarction; J44.9 Chronic obstructive pulmonary disease, unspecified
CPT/HCPCS: 71045; 74177; 80053; 83605; 83690; 85025; 96374; 96375; 99285; J1100; J1200; J2270; J2405; J2920; Q9967

== ENCOUNTER 2023-07-31 19:02 | Inpatient (IN) | payer MEDICARE, MEDICAID, SELFPAY ==
[2023-07-31] VITALS (9 sets, daily range): BP systolic 99–117; BP diastolic 63–78; PULSE 89–111; RESP 1–23; TEMP 36.6–36.9; O2SAT 88–96
--- NOTE | 2023-07-31 19:19 | ECG_ITS ---
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 Measurements Intervals [place] Rate: 110 P: 78 TN: 152 QRS: 91 QRSD: 80 T: 79 QT: 344 QTc: 465 Interpretive Statements SINUS TACHYCARDIA POSSIBLE LEFT ATRIAL ENLARGEMENT [-0.1mV P-WAVE IN V1/V2] BORDERLINE RIGHT AXIS DEVIATION [QRS AXIS > 90] ABNORMAL RHYTHM ECG Compared to ECG 01/03/2023 18:21:14 T-wave abnormality no longer present Electronically Signed On 08-03-2023 23:21:23 [employer]OUND WOOD SUPERVISOR by Andrew Stock M.D. [id number]
--- NOTE | 2023-07-31 19:20 | XRR_ITS ---
PROCEDURE INFORMATION: Exam: XR Chest Exam date and time: 07/31/2023 7:36 PM Age: 58 years old Clinical indication: Shortness of breath and wheezing; Patient HX: Shortness of breath, loose cough, wheezing. Symptoms worsening over past week; Additional info: SOB TECHNIQUE: Imaging protocol: Radiologic exam of the chest. Views: 1 view. COMPARISON: CR XR chest 1V portable [id number] 07/26/2023 11:30 AM FINDINGS: Lungs: Unremarkable. No consolidation. Pleural spaces: Unremarkable. No pleural effusion. No pneumothorax. Heart/Mediastinum: Unremarkable. No cardiomegaly. Bones/joints: Unremarkable. XR/XR chest 1V portable [id number] IMPRESSION: No acute findings.
--- NOTE | 2023-07-31 19:33 | W.ED.SOB ---
HPI - SOB/Dyspnea General: Chief Complaint: Shortness of Breath/Dyspnea Stated Complaint: sob chest pain Time Seen by Provider: 07/31/23 19:20 Source: patient Mode of arrival: ambulatory Limitations: no limitations History of Present Illness: HPI Narrative: 58-year-old female who states that she has a history of COPD along with CHF states she had increased shortness of breath and wheezing over the last 4 days. States she has had a nonproductive cough as well denies any fevers. She states she is been using her breathing treatments at home with minimal relief she does have audible wheezing here. Associated symptoms: Deny abdominal pain, chest pain, fever(s), nausea or vomiting Review of Systems Const: Denies: fever(s), chills, body aches or change in appetite ENMT: Denies: throat pain or dental pain Card: Denies: chest pain Resp: Reports: dyspnea, non-productive cough and wheezing GI: Denies: abdominal pain, nausea, vomiting or diarrhea Musc: Denies: neck pain or back pain Skin/Breast: Denies: rash Neuro: Denies: headache(s) PFSH ED PFSH: Medical History Nicotine addiction CAD (coronary artery disease) (~12/2019) -Known history of CAD with recent stenting of LAD due to anterior wall STEMI in December -Follows up with Dr. Salcedo; f/u in [address] Bass Essential (primary) hypertension -VSS; continue to monitor -continue oral antihypertensives Hypomagnesemia Hypokalemia Encounter for chronic pain management Diastolic congestive heart failure Shortness of breath Severe persistent asthma Closed fracture distal radius and ulna Insomnia Hyperlipidemia Smokers' cough Acute exacerbation of CHF (congestive heart failure) Normocytic anemia -Seems to have intermittent normocytic anemia with a baseline hemoglobin of about 10-11, intermittently normal -Has been on dual antiplatelet therapy given recent stenting -Continue to monitor H&H closely; stable so far -iron and ferritin low; start on iron replacement Asthma -severe persistent, started xolair 02/04/2020 -follow up with Dr. West New onset of congestive heart failure -Could be secondary to recent STEMI requiring intervention with stenting of LAD last month -Echo: EF=57%, normal systolic and diastolic function, no RWMA, trace TR, trace SC -has been on IV diuresis with Lasix; switched to oral lasix -Continue to monitor electrolytes and renal function -Daily weights, monitor ins and outs -BNP elevated at 948 -Chest x-ray reported as unremarkable -Close monitoring of respiratory status, supplemental oxygen as needed Methadone maintenance therapy patient Acute anterior wall PA Chronic post-traumatic stress disorder Generalized anxiety disorder Major depressive disorder, recurrent severe without psychotic features Chronic radicular lumbar pain Herniated disc Sleep apnea, unspecified Lesion of ulnar nerve, bilateral COPD (chronic obstructive pulmonary disease) -no acute exacerbation -does not appear to be oxygen dependent at baseline -recently restarted smoking, 1/2 PPD KRISTOFER on CPAP GERD (gastroesophageal reflux disease) -on PPI Surgical History H/O oral surgery S/P section Presence of stent in LAD coronary artery (01/23/20) H/O bilateral oophorectomy History of cholecystectomy History of carpal tunnel release H/O skin graft Family History Father Myocardial infarct, Onset Age: 45 Brother Myocardial infarct, Onset Age: 53 Other CAD (coronary artery disease) Closed fracture distal radius and ulna Social History Smoking and tobacco/nicotine status: former use of tobacco/nicotine Quit status (tobacco/nicotine): has quit using Year quit tobacco: 2020 - 1PPD x 30 Years Second hand smoke exposure: Yes Alcohol intake: former Substance/Drug Use: never Lives independently: Yes Household members: family Marital status: Current occupational status: disabled Do you think of yourself as: Straight/Heterosexual Current gender identity: Female Physical Exam Const: COMMON NORMALS: patient oriented x3 HENMT: COMMON NORMALS: normocephalic and atraumatic HEAD & SCALP: normocephalic and atraumatic Neck/C-Spine: COMMON NORMALS: full ROM and supple Chest: COMMONS NORMALS: normal inspection of the chest Resp: COMMON NORMALS: normal respiratory effort EFFORT & INSPECTION: Yes tachypneic AUSCULTATION: wheezes Cardio: COMMON NORMALS: regular rate, regular rhythm and No murmurs present (Cardio) RATE: regular rate RHYTHM: regular rhythm GI: COMMON NORMALS: Normal to inspection, nondistended, normoactive bowel sounds present, Soft to palpation, non-tender and no masses PALPATION: Yes Soft to palpation Extremity: COMMON NORMALS: normal to inspection and full ROM Neuro: COMMON NORMALS: patient oriented x3, moves all extremities and no focal motor deficits Psych: COMMON NORMALS: mental status grossly normal, Normal thought process present and cooperative THOUGHT PROCESS: Normal thought process present Skin: COMMON NORMALS: no rashes or lesions noted and no wounds GENERAL SKIN EXAM: no rashes or lesions noted Course Vital Signs: Vital signs: Vital Signs Temperature 97.9 F 07/31/23 19:07 Pulse Rate 103 H 07/31/23 21:09 Respiratory Rate 22 H 07/31/23 21:09 Blood Pressure 117/72 07/31/23 21:09 Pulse Oximetry 92 07/31/23 21:09 Oxygen Delivery Me thod Nasal Cannula 07/31/23 21:09 Oxygen Flow Rate 3 07/31/23 21:09 MDM - SOB/Dyspnea Medical Decision Making Patient presents here with COPD exacerbation I did give her 2 breathing treatments along with magnesium her breathing here has improved her wheezing is improved she still requiring 3 L of oxygen here and does not wear oxygen at baseline she is no signs of PE x-ray shows no pneumonia I spoke to the hospitalist will admit. Medical Records I reviewed the patient's medical records. Lab Data I reviewed the patient's lab results. 07/31/23 19:41 07/31/23 19:41 Labs/Radiology: Radiology Impressions Chest X-Ray 07/31/23 19:20 IMPRESSION: No acute findings. Laboratory Results WBC 13.40 10^3/uL (3.29-11.43) H 07/31/23 19:41 RBC 4.95 10^6/uL (3.85-5.65) 07/31/23 19:41 Hgb 15.10 g/dL (11.27-16.99) 07/31/23 19:41 Hct 45.2 % (36-47) 07/31/23 19:41 MCV 91.3 fl (85-98) 07/31/23 19:41 MCH 30.5 pg (27-33) 07/31/23 19:41 MCHC 33.4 g/dL (30-55) 07/31/23 19:41 RDW 12.5 % (12.1-15.1) 07/31/23 19:41 Plt Count 341 10^3/cmm (157-399) 07/31/23 19:41 MPV 10.9 fL (7.4-10.4) H 07/31/23 19:41 Neut % (Auto) 55.7 % 07/31/23 19:41 Lymph % (Auto) 33.0 % 07/31/23 19:41 [place] % (Auto) 6.3 % 07/31/23 19:41 Eos % (Auto) 2.4 % 07/31/23 19:41 Baso % (Auto) 0.8 % 07/31/23 19:41 Neut # (Auto) 7.46 10^3/uL (1.8-7.7) 07/31/23 19:41 Lymph # (Auto) 4.4 10^3/uL (0.8-4.8) 07/31/23 19:41 [place] # (Auto) 0.9 10^3/uL (0.2-0.9) 07/31/23 19:41 Eos # (Auto) 0.3 10^3/uL (0.0-0.8) 07/31/23 19:41 Baso # (Auto) 0.1 10^3/uL (0.0-0.1) 07/31/23 19:41 Nucleated RBC % (auto) 0 % 07/31/23 19:41 Nucleated RBCs # 0.0 /100WBC 07/31/23 19:41 Sodium 140 mmol/L (136-145) 07/31/23 19:41 Potassium 3.4 mmol/L (3.5-5.1) L 07/31/23 19:41 Chloride 100 mmol/L (98-107) 07/31/23 19:41 Carbon Dioxide 27 mmol/L (22-29) 07/31/23 19:41 Anion Gap 16.4 (5-19) 07/31/23 19:41 BUN 10 mg/dL (6-20) 07/31/23 19:41 Creatinine 0.8 mg/dL (0.5-0.9) 07/31/23 19:41 GFR Calculation 73.7 mL/min (90-130) L 07/31/23 19:41 Glucose 118 mg/dL (65-115) H 07/31/23 19:41 Calculated Osmolality 290 mOsm/kg (285-295) 07/31/23 19:41 Calcium 9.0 mg/dL (8.5-10.5) 07/31/23 19:41 Total Bilirubin 0.2 mg/dL (0.15-1.2) 07/31/23 19:41 AST 11 U/L (0-32) 07/31/23 19:41 ALT 8 U/L (0-33) 07/31/23 19:41 Alkaline Phosphatase 138 U/L (35-105) H 07/31/23 19:41 NT-Pro-B Natriuret Pep 453 pg/mL (0-125) H 07/31/23 19:41 Total Protein 7.4 g/dL (6.6-8.7) 07/31/23 19:41 Albumin 3.7 g/dL (3.5-5.2) 07/31/23 19:41 Globulin 3.7 g/dL (1.3-4.6) 07/31/23 19:41 Influenza Type A Ag negative (Negative) 07/31/23 20:05 Influenza Type B Ag negative (Negative) 07/31/23 20:05 SARS-CoV-2 Ag (Rapid) negative (Negative) 07/31/23 20:05 All radiology interpretation(s) finalized by discharge EKG Data EKG 1: I personally reviewed and interpreted this EKG as follows: EKG Interpretation Date: 07/31/23 EKG interpretation time: 19:16 Interpretation: sinus tach hr [address] elevation qrs 80 qtc 409 Discharge Plan Discharge Patient Disposition: Admitted As Inpatient Clinical Impression: Acute exacerbation of chronic obstructive pulmonary disease Condition: Stable Prescriptions: No Action nitroglycerin 0.4 mg tablet, sublingual 0.4 mg SUBLINGUAL Q5M PRN (Reason: chest pain) Qty: 25 6RF Rx Instructions: do not exceed 3 doses per episode cetirizine [Zyrtec] 10 mg tablet 10 mg PO QAM ipratropium-albuterol 0.5 mg-3 mg(2.5 mg base)/3 mL solution for nebulization 3 ml inhalation Q4H PRN (Reason: wheezing) Qty: 180 6RF azelastine 137 mcg (0.1 %) aerosol,spray 1 spray INTRANASAL BID@0700,2200 30 Days Qty: 30 4RF Rx Instructions: administer into each nostril albuterol sulfate [ProAir HFA] 90 mcg/actuation HFA aerosol inhaler 2 puff INHALATION Q6H PRN (Reason: Shortness Of Breath Or Wheezing) Qty: 8.5 3RF epinephrine [EpiPen Jr 2-Guille] 0.15 mg/0.3 mL auto-injector 0.15 mg IM Q30M PRN (Reason: anaphylaxis) Qty: 2 1RF Rx Instructions: do not exceed 12 doses per 24 hrs (DME) Cockup Splint See Rx Instructions .Route .MEDSUPPLY Qty: 1 0RF Rx Instructions: As directed Flonase Allergy Relief 50 mcg/actuation spray,suspension 1 spray INTRANASAL BID@ Qty: 15.8 3RF Rx Instructions: administer into each nostril Perforomist 20 mcg/2 mL solution for nebulization See Rx Instructions .ROUTE .COMPLEX Qty: 60 11RF Dose Instruction: USE 1 VIAL IN NEBULIZER EVERY 12 HOURS - Morning and Evening Rx Instructions: USE 1 VIAL IN NEBULIZER EVERY 12 HOURS - Morning and Evening Yupelri 175 mcg/3 mL solution for nebulization See Rx Instructions .ROUTE .COMPLEX Qty: 30 11RF Dose Instruction: USE 1 VIAL IN NEBULIZER DAILY - DO NOT MIX WITH OTHER NEB MEDS, USE BEFORE OR AFTER Rx Instructions: USE 1 VIAL IN NEBULIZER DAILY - DO NOT MIX WITH OTHER NEB MEDS, USE BEFORE OR AFTER atorvastatin 80 mg tablet 80 mg PO DAILY Qty: 90 1RF clopidogrel 75 mg tablet 75 mg PO DAILY@729 Qty: 90 1RF losartan 25 mg tablet 25 mg PO DAILY Qty: 90 1RF pantoprazole 40 mg tablet,delayed release (DR/EC) 40 mg PO BID Qty: 90 2RF Singulair 10 mg tablet 10 mg PO DAILY Qty: 90 1RF metoprolol succinate 25 mg tablet extended release 24 hr 25 mg PO DAILY@0730 Qty: 90 1RF ezetimibe 10 mg tablet 10 mg PO DAILY Qty: 90 3RF budesonide 0.5 mg/2 mL Suspension For Nebulization 0.5 mg inhalation BID fluoxetine 40 mg capsule 40 mg PO QAM trazodone 50 mg tablet 50 mg PO BEDTIME PRN (Reason: Sleep) Breztri Aerosphere 160-9-4.8 mcg/actuation HFA aerosol inhaler 2 inh INHALATION BID potassium chloride 20 mEq tablet,ER particles/crystals 40 meq PO QAM furosemide 40 mg tablet 40 mg PO EVERY OTHER DAY prednisone 5 mg tablet 5 mg PO EVERY OTHER DAY Xolair 150 mg/mL syringe 300 mg SUBCUT Q14D hydrocodone-acetaminophen 5-325 mg tablet See Rx Instructions .ROUTE .COMPLEX Rx Instructions: 1/2 tab every 12 hours- max dose 1 tab daily as needed methadone 5 mg tablet 5 mg PO TID mirtazapine 7.5 mg tablet 7.5 mg PO DAILY Referrals: Lauri Krishnan MD [Primary Care Provider] - Coding Level of Care Code 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
[2023-07-31 19:51] LABS: Basophils # 0.1 10^3/uL (0.0-0.1); Basophils % 0.8 %; Eosinophils # 0.3 10^3/uL (0.0-0.8); Eosinophils % 2.4 %; Hematocrit 45.2 % (36-47); Lymphocytes # 4.4 10^3/uL (0.8-4.8); Mean Corpuscular HGB Conc 33.4 g/dL (30-55); Mean Corpuscular Hemoglobin 30.5 pg (27-33); Mean Corpuscular Volume 91.3 fl (85-98); Mean Platelet Volume 10.9 fL (7.4-10.4); Monocytes # 0.9 10^3/uL (0.2-0.9); Monocytes % 6.3 %; Neutrophils # 7.46 10^3/uL (1.8-7.7); Neutrophils % 55.7 %; Nucleated Red Blood Cells % 0 %; Platelet Count 341 10^3/cmm (157-399); Red Blood Count 4.95 10^6/uL (3.85-5.65); Red Cell Distribution Width 12.5 % (12.1-15.1)
[2023-07-31] MEDS: ipratropium-albuterol 3 mL Neb INHALATION (19:55)
[2023-07-31] MEDS: albuterol 2.5 mg/3 mL Neb INHALATION (19:55)
[2023-07-31] MEDS: methylPREDNISolone sod succ 125 mg/2 mL INJ IV (20:00)
[2023-07-31 20:25] LABS: Alanine Aminotransferase 8 U/L (0-33); Albumin Level 3.7 g/dL (3.5-5.2); Alkaline Phosphatase 138 U/L (35-105); Blood Urea Nitrogen 10 mg/dL (6-20); Carbon Dioxide 27 mmol/L (22-29); Chloride 100 mmol/L (98-107); Creatinine Clr Calc Pharmacy 74.3171; Globulin 3.7 g/dL (1.3-4.6); Glomerular Filtration Rate 73.7 mL/min (90-130); Glucose 118 mg/dL (65-115); NT Pro B Type Natriuretic Pept 453 pg/mL (0-125); Osmolality Calculated 290 mOsm/kg (285-295); Sodium 140 mmol/L (136-145); Total Bilirubin 0.2 mg/dL (0.15-1.2); Total Protein 7.4 g/dL (6.6-8.7)
[2023-07-31 20:28] LABS: Anion Gap 16.4 (5-19); Aspartate Amino Transferase 11 U/L (0-32); Potassium 3.4 mmol/L (3.5-5.1)
[2023-07-31 20:35] LABS: SARS Covid-2 Antigen negative (Negative)
[2023-07-31 20:36] LABS: Influenza A by IFA negative (Negative); Influenza B by IFA negative (Negative)
[2023-07-31] MEDS: magnesium sulfate premix 2 GM/50 ML PIGGYBACK IV (20:42)
[2023-07-31] MEDS: albuterol 2.5 mg/3 mL Neb 5 MG INHALATION (20:45)
--- NOTE | 2023-07-31 22:54 | P.HP_ITS ---
Providers/Chief Complaint 2 Admitting Physician: Vinny Rodriguez MD Primary Care Provider: Lauri Krishnan MD Chief Complaint: sob chest pain History of Present Illness Nhung Leone is a 58 year old female with a past medical history of asthma, severe persistent, history of COPD, history of CAD status post stenting, prior history of smoking, diastolic CHF, hyperlipidemia, history of anemia, who presents to [facility] due to shortness of breath, wheezing for the last 4 days, does report a nonproductive cough, no fevers, does have wheezing, no sick contacts, recent travel, no chest pain Review of Systems 2 Card: Denies: chest pain Resp: Reports: dyspnea Medications/Allergies Home Medications Medication Instructions Recorded Confirmed Last Taken Type fluticasone propionate 50 1 spray intranasal BID@ #15.8 10/09/21 07/26/23 07/25/23 Rx mcg/actuation nasal mL spray,suspension (Flonase Allergy Relief) formoterol fumarate 20 mcg/2 mL See Rx Instructions .Route 01/24/22 07/26/23 07/25/23 Rx solution for nebulization .COMPLEX #60 vials (Perforomist) revefenacin 175 mcg/3 mL solution See Rx Instructions .Route 01/24/22 07/26/23 10/16/22 Rx for nebulization (Yupelri) .COMPLEX #30 vials albuterol sulfate 90 mcg/actuation 2 puff inhalation Q6H PRN 02/13/22 07/26/23 Unknown Rx aerosol inhaler (ProAir HFA) Shortness Of Breath Or Wheezing #8.5 grams azelastine 137 mcg (0.1 %) nasal 1 spray intranasal BID@0700,2200 02/13/22 07/26/23 07/25/23 Rx spray aerosol 30 days #30 mL epinephrine 0.15 mg/0.3 mL 0.15 mg (0.3 mL) IM Q30M PRN 06/19/22 07/26/23 Unknown Rx injection,auto-injector (EpiPen Jr anaphylaxis #2 ea 2-Guille) nitroglycerin 0.4 mg sublingual 0.4 mg sublingual Q5M PRN chest 06/21/22 07/26/23 Unknown Rx tablet pain #25 tabs atorvastatin 80 mg tablet 80 mg PO DAILY #90 tabs 08/09/22 07/26/23 07/25/23 Rx clopidogrel 75 mg tablet 75 mg PO DAILY@0730 #90 tabs 08/09/22 07/26/23 07/25/23 Rx losartan 25 mg tablet 25 mg PO DAILY #90 tabs 08/09/22 07/26/23 07/25/23 Rx pantoprazole 40 mg tablet,delayed 40 mg PO BID #90 tabs 08/13/22 07/26/23 07/26/23 Rx release montelukast 10 mg tablet 10 mg PO DAILY #90 tabs 08/31/22 07/26/23 07/25/23 Rx (Singulair) Cockup Splint #1 ea 10/30/22 07/26/23 Unknown Rx cetirizine 10 mg tablet (Zyrtec) 10 mg PO QAM 01/03/23 07/26/23 07/25/23 History budesonide 0.5 mg/2 mL suspension 0.5 mg inhalation BID 01/04/23 07/26/23 07/25/23 History for nebulization budesonide 160 mcg-glycopyr 9 2 inh inhalation BID 01/04/23 07/26/23 07/26/23 History mcg-formot 4.8 mcg/actuation HFA inhaler (Breztri Aerosphere) fluoxetine 40 mg capsule 40 mg PO QAM 01/04/23 07/26/23 07/26/23 History potassium chloride 20 mEq 40 meq PO QAM 01/04/23 07/26/23 07/25/23 History tablet,extended release(part/cryst) trazodone 50 mg tablet 50 mg PO BEDTIME PRN Sleep 01/04/23 07/26/23 Unknown History metoprolol succinate 25 mg 25 mg PO DAILY@0730 #90 tabs 03/26/23 07/26/23 07/25/23 Rx tablet,extended release 24 hr ezetimibe 10 mg tablet 10 mg PO DAILY #90 tabs 06/17/23 07/26/23 07/25/23 Rx ipratropium 0.5 mg-albuterol 3 mg 3 ml inhalation Q4H PRN wheezing 07/18/23 07/26/23 07/25/23 Rx (2.5 mg base)/3 mL nebulization #180 mL soln furosemide 40 mg tablet 40 mg PO EVERY OTHER DAY 07/26/23 07/26/23 Unknown History hydrocodone 5 mg-acetaminophen 325 See Rx Instructions .Route .COMPLEX 07/26/23 07/26/23 07/25/23 History mg tablet methadone 5 mg tablet 5 mg PO TID 07/26/23 07/26/23 07/25/23 History mirtazapine 7.5 mg tablet 7.5 mg PO DAILY 07/26/23 07/26/23 07/25/23 History omalizumab 150 mg/mL subcutaneous 300 mg SUBCUT Q14D 07/26/23 07/26/23 07/25/23 History syringe (Xolair) prednisone 5 mg tablet 5 mg PO EVERY OTHER DAY 07/26/23 07/26/23 07/24/23 History Allergies Allergy/AdvReac Type Severity Reaction Status Date / Time doxycycline Allergy Intermediate ALGY-Hives Verified 07/31/23 19:11 Iodinated Contrast Media Allergy Intermediate ALGY-Hives Verified 07/31/23 19:11 codeine Allergy Unknown Unknown Verified 07/31/23 19:11 Sulfa (Sulfonamide Allergy Unknown Unknown Verified 07/31/23 19:11 Antibiotics) gabapentin Allergy Unknown Verified 07/31/23 19:11 PFSH Acute 2 PFSH: Medical History Nicotine addiction CAD (coronary artery disease) (~12/2019) -Known history of CAD with recent stenting of LAD due to anterior wall STEMI in December -Follows up with Dr. Salcedo; f/u in [address] Bass Essential (primary) hypertension -VSS; continue to monitor -continue oral antihypertensives Hypomagnesemia Hypokalemia Encounter for chronic pain management Diastolic congestive heart failure Shortness of breath Severe persistent asthma Closed fracture distal radius and ulna Insomnia Hyperlipidemia Smokers' cough Acute exacerbation of CHF (congestive heart failure) Normocytic anemia -Seems to have intermittent normocytic anemia with a baseline hemoglobin of about 10-11, intermittently normal -Has been on dual antiplatelet therapy given recent stenting -Continue to monitor H&H closely; stable so far -iron and ferritin low; start on iron replacement Asthma -severe persistent, started xolair 02/04/2020 -follow up with Dr. West New onset of congestive heart failure -Could be secondary to recent STEMI requiring intervention with stenting of LAD last month -Echo: EF=57%, normal systolic and diastolic function, no RWMA, trace TR, trace ND -has been on IV diuresis with Lasix; switched to oral lasix -Continue to monitor electrolytes and renal function -Daily weights, monitor ins and outs -BNP elevated at 948 -Chest x-ray reported as unremarkable -Close monitoring of respiratory status, supplemental oxygen as needed Methadone maintenance therapy patient Acute anterior wall VT Chronic post-traumatic stress disorder Generalized anxiety disorder Major depressive disorder, recurrent severe without psychotic features Chronic radicular lumbar pain Herniated disc Sleep apnea, unspecified Lesion of ulnar nerve, bilateral COPD (chronic obstructive pulmonary disease) -no acute exacerbation -does not appear to be oxygen dependent at baseline -recently restarted smoking, 1/2 PPD KRISTOFER on CPAP GERD (gastroesophageal reflux disease) -on PPI Surgical History H/O oral surgery S/P section Presence of stent in LAD coronary artery (01/23/20) H/O bilateral oophorectomy History of cholecystectomy History of carpal tunnel release H/O skin graft Family History Father Myocardial infarct, Onset Age: 45 Brother Myocardial infarct, Onset Age: 53 Other CAD (coronary artery disease) Closed fracture distal radius and ulna Social History Smoking and tobacco/nicotine status: former use of tobacco/nicotine Quit status (tobacco/nicotine): has quit using Year quit tobacco: 2020 - 1PPD x 30 Years Second hand smoke exposure: Yes Alcohol intake: former Substance/Drug Use: never Lives independently: Yes Household members: family Marital status: Current occupational status: disabled Do you think of yourself as: Straight/Heterosexual Current gender identity: Female Vitals/I&O/Wt Last Vital Signs Temp 97.9 F 07/31/23 19:07 Pulse 94 07/31/23 22:33 Resp 23 H 07/31/23 22:33 BP 103/63 07/31/23 22:33 Pulse Ox 95 07/31/23 22:33 O2 Del Method Nasal Cannula 07/31/23 21:09 O2 Flow Rate 3 07/31/23 21:09 07/31/23 07/31/23 07/31/23 06:59 14:59 22:59 Intake Total 50 / 50 Balance 50 / 50 Weight last 48 hrs Weight 68.039 kg Physical Exam 2 Const: COMMON NORMALS: no acute distress and patient oriented x3 HENMT: COMMON NORMALS: normocephalic HEAD & SCALP: normocephalic Neck/C-Spine: COMMON NORMALS: no JVD Lymph: LYMPHATIC: no lymphadenopathy noted Resp: COMMON NORMALS: normal respiratory effort, No retractions and No use of accessory muscles AUSCULTATION: wheezes Cardio: COMMON NORMALS: no JVD, regular rate, regular rhythm, S1 normal heart sound present and S2 normal heart sound present RATE: regular rate RHYTHM: regular rhythm HEART SOUNDS: S1 normal heart sound present and S2 normal heart sound present GI: COMMON NORMALS: Normal to inspection, nondistended, normoactive bowel sounds present, Soft to palpation and non-tender Extremity: COMMON NORMALS: no calf tenderness and no pedal edema Neuro: COMMON NORMALS: patient oriented x3, CN's II-XII intact bilaterally and moves all extremities Psych: COMMON NORMALS: mental status grossly normal Data 07/31/23 19:41 07/31/23 19:41 A&P Assessment and plan (1) Acute hypoxic respiratory failure: (2) Asthma exacerbation: (3) Acute exacerbation of chronic obstructive pulmonary disease: Plan Acute hypoxic respiratory failure -Requiring 3 L -Wheezing and all lung sutton -Secondary to asthma, COPD Plan -Monitor respiratory status closely -Solu-Medrol 40 mg IV push every 8 hours -azithromycin -DuoNeb -Budesonide -Sputum culture -Pro-Gustavo, CRP, respiratory viral panel -CT angiogram of the chest -History of CAD, continue Plavix, statin -Full code -Lovenox for DVT prophylaxis Attestations 2 Medical Necessity Statement*: Patient requires hospitalization for acute hypoxic respiratory failure secondary to asthma, COPD, inpatient, greater than 2 midnights Diagnoses Acute hypoxic respiratory failure J96.01 Asthma exacerbation J45.901 Acute exacerbation of chronic obstructive pulmonary disease J44.1
[2023-07-31 23:26] LABS: Procalcitonin 0.03 ng/mL (0-0.5)
--- NOTE | 2023-07-31 23:34 | CTR_ITS ---
PROCEDURE INFORMATION: Exam: CT Chest Without Contrast; Diagnostic Exam date and time: 08/01/2023 2:14 AM Age: 58 years old Clinical indication: Dyspnea; Additional info: SOB TECHNIQUE: Imaging protocol: Diagnostic computed tomography of the chest without contrast. Radiation optimization: All CT scans at this facility use at least one of these dose optimization techniques: automated exposure control; mA and/or kV adjustment per patient size (includes targeted exams where dose is matched to clinical indication); or iterative reconstruction. COMPARISON: CT lung screening [id number] 11/29/2022 9:50 AM RADIATION DOSE METRICS: Total DLP (mGy-cm): 400 FINDINGS: Lungs: Diffuse bronchial wall thickening throughout both lungs.. No consolidation. No masses. Pleural spaces: Unremarkable. No pneumothorax. No pleural effusion. Heart: Unremarkable. No cardiomegaly. No pericardial effusion. Coronary artery stent in the LAD. Lymph nodes: Unremarkable. No enlarged lymph nodes. Vasculature: Unremarkable. No aortic aneurysm. Gallbladder and bile ducts: The gallbladder is absent. Spleen: Multiple punctate calcifications in the spleen consistent with prior granulomatous infection. Bones/joints: Unremarkable. No acute fracture. Soft tissues: Unremarkable. Other findings: Multiple bilateral calcified granulomas likely of no clinical significance. CT/CT chest con [id number] IMPRESSION: 1. No focal consolidation, pleural effusion or suspicious pulmonary nodules or masses. 2. Diffuse bronchial wall thickening both lungs which can be seen in the setting of bronchitis.
[2023-07-31 23:39] LABS: C Reactive Protein 7.5 mg/L (0.0-4.9); Chol HDL Ratio 4.45 mg/dL (0.0-4.40); Cholesterol 218 mg/dL (0-200); HDL Cholesterol 49 mg/dL (60-100); LDL Cholesterol Calculated 142 mg/dL (50-129); Thyroid Stimulating Hormone 2.49 uIU/mL (0.27-4.20); Triglycerides 135 mg/dL (0-150)
[2023-08-01] VITALS (17 sets, daily range): BP systolic 113–124; BP diastolic 69–77; PULSE 67–89; RESP 16–22; TEMP 36.6–37.2; O2SAT 91–98
[2023-08-01] MEDS: azithromycin 500 MG in sodium chloride 0.9% 250 ML 250 MG IV (00:18)
[2023-08-01] MEDS: sodium chloride 0.9% 1,000 ML 50 ML IV ×2 (00:18→21:51)
[2023-08-01] MEDS: pantoprazole 40 mg SDV IVP (05:21)
[2023-08-01] MEDS: enoxaparin 40 mg/0.4 mL Syringe SUBCUT (05:21)
[2023-08-01] MEDS: methylPREDNISolone sod succ 40 mg/mL INJ IVP ×2 (05:21→18:22)
[2023-08-01 05:35] LABS: Basophils % 0.2 %; Hematocrit 40.5 % (36-47); Lymphocytes # 1.1 10^3/uL (0.8-4.8); Mean Corpuscular HGB Conc 33.3 g/dL (30-55); Mean Corpuscular Hemoglobin 30.5 pg (27-33); Mean Corpuscular Volume 91.6 fl (85-98); Mean Platelet Volume 10.6 fL (7.4-10.4); Monocytes % 0.4 %; Neutrophils # 8.42 10^3/uL (1.8-7.7); Neutrophils % 86.4 %; Nucleated Red Blood Cells % 0 %; Platelet Count 320 10^3/cmm (157-399); Red Blood Count 4.42 10^6/uL (3.85-5.65); Red Cell Distribution Width 12.7 % (12.1-15.1); White Blood Count 9.74 10^3/uL (3.29-11.43)
[2023-08-01 06:00] LABS: Slide Review Slide Review Perform
[2023-08-01 06:01] LABS: Anion Gap 15.5 (5-19); Blood Urea Nitrogen 12 mg/dL (6-20); Calcium 8.7 mg/dL (8.5-10.5); Carbon Dioxide 27 mmol/L (22-29); Chloride 99 mmol/L (98-107); Glomerular Filtration Rate 102.7 mL/min (90-130); Glucose 143 mg/dL (65-115); Magnesium 2.5 mg/dL (1.7-2.3); Osmolality Calculated 288 mOsm/kg (285-295); Phosphorus 3.6 mg/dL (2.5-4.5); Potassium 3.5 mmol/L (3.5-5.1); Sodium 138 mmol/L (136-145)
[2023-08-01 07:17] LABS: Adenovirus Not Detected (NOT DETECT); Chlamydia Pneumoniae Not Detected (NOT DETECT); Coronavirus 229E,HKU1,NL63,OC4 Not Detected (NOT DETECT); Human Metapneumovirus Not Detected (NOT DETECT); Human Rhinovirus/Enterovirus Not Detected (NOT DETECT); Influenza A Not Detected (NOT DETECT); Influenza A H1 Not Detected (NOT DETECT); Influenza A H1-2009 Not Detected (NOT DETECT); Influenza A H3 Not Detected (NOT DETECT); Influenza B Not Detected (NOT DETECT); Mycoplasma Pneumoniae Not Detected (NOT DETECT); Parainfluenza Virus Type 1 Not Detected (NOT DETECT); Parainfluenza Virus Type 2 Not Detected (NOT DETECT); Parainfluenza Virus Type 3 Not Detected (NOT DETECT); Parainfluenza Virus Type 4 Not Detected (NOT DETECT); Respiratory Syncytial Virus A Not Detected (NOT DETECT); Respiratory Syncytial Virus B Not Detected (NOT DETECT); SARS-COV-2 Not Detected (NOT DETECT)
[2023-08-01] MEDS: budesonide 0.5 mg/2 mL Neb INHALATION ×2 (08:17→19:25)
[2023-08-01] MEDS: ipratropium-albuterol 3 mL Neb INHALATION ×4 (08:21→19:25)
[2023-08-01] MEDS: acetaminophen 325 mg Tablet 650 MG PO (09:48)
[2023-08-01] MEDS: atorvastatin 40 mg Tablet 80 MG PO (09:48)
[2023-08-01] MEDS: metoprolol succinate ER (24 HR) 25 mg Tablet PO (09:49)
[2023-08-01] MEDS: losartan 50 mg Tablet 25 MG PO (09:49)
[2023-08-01] MEDS: clopidogrel 75 mg Tablet PO (09:49)
[2023-08-01] MEDS: fluoxetine 20 mg Capsule 40 MG PO (09:50)
--- NOTE | 2023-08-01 10:23 | PC.CHAP ---
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 properties supervisor visit [] Patient/Family/Request visit [] Outpatient visit [] Follow-up visit [] Physician referral [] Code/Alert [] Routine visit [] Staff referral [] Actively dying [] Patient sleeping [] Family support [] [] Out of room [] Palliative care [] [] Receiving care in room [] Pre-surgical visit [] Trauma [] Long length of stay [] ICU visit [] Other: Relational/Emotional Strength [] Patient feels connected with others/family/visitors/staff [] Distress [] Loneliness/isolation [] Abandonment Spirituality of Patient [] Person of Shirlene [] Attends Hindu of their Shirlene [] Believes in Prayer [] Reads Bible or Yazidism materials [] There are Spiritual issues to be addressed Food Tray Assembler Interventions [] Prayer [] Active listening [] Non-anxious presence [] Spiritual/emotional support [] Crisis/trauma care [] Spiritual counseling [] Bereavement support [] Provided bereavement packet [] Provided Bible/devotional materials [] Provided toy/stuffed animal, coloring book to patient or family member [] Provided Communion [] Anointing/[place] [] Salvation [] Completed spiritual assessment [] Other: Impact on Illness or Injury [] Angry [] Fearful [] Anxious [] Often cries [] Exhaustion [] Unable to work [] Unable to attend baptist [] Unable to walk/stand [] Unable to read [] Unable to drive [] Unable to eat/drink [] Unable to sleep [] Unable to be with family [] Patient intubated [] Other: Summary Time spent with patient 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 properties supervisor visit [] Patient/Family/Request visit [] Outpatient visit [] Follow-up visit [] Physician referral [] Code/Alert [x] Routine visit [] Staff referral [] Actively dying [] Patient sleeping [] Family support [] [] Out of room [] Palliative care [] [] Receiving care in room [] Pre-surgical visit [] Trauma [] Long length of stay [] ICU visit [] Other: Relational/Emotional Strength [x] Patient feels connected with others/family/visitors/staff [] Distress [] Loneliness/isolation [] Abandonment Spirituality of Patient [x] Person of Shirlene [] Attends Hindu of their Shirlene [x] Believes in Prayer [] Reads Bible or Yazidism materials [] There are Spiritual issues to be addressed Food Tray Assembler Interventions [x] Prayer [x] Active listening [x] Non-anxious presence [x] Spiritual/emotional support [] Crisis/trauma care [x] Spiritual counseling [] Bereavement support [] Provided bereavement packet [] Provided Bible/devotional materials [] Provided toy/stuffed animal, coloring book to patient or family member [] Provided Communion [] Anointing/[place] [] Salvation [x] Completed spiritual assessment [] Other: Impact on Illness or Injury [] Angry [] Fearful [] Anxious [] Often cries [] Exhaustion [] Unable to work [] Unable to attend baptist [] Unable to walk/stand [] Unable to read [] Unable to drive [] Unable to eat/drink [] Unable to sleep [] Unable to be with family [] Patient intubated [] Other: Summary feels good has a postive attitude is goingm home Time spent with patient 10 mins
--- NOTE | 2023-08-01 13:46 | P.PN_ITS ---
Subjective 2 Subjective: Seen today. Patient quite short of breath. [id number] at bedside. Has not had an exacerbation since 2019. Vitals/I&O/Wt Last Vital Signs Temp 98.1 F 08/01/23 07:40 Pulse 71 08/01/23 12:00 Resp 17 08/01/23 12:00 BP 113/70 08/01/23 12:00 Pulse Ox 91 08/01/23 11:51 O2 Del Method Room Air 08/01/23 11:51 O2 Flow Rate 1 08/01/23 11:18 07/31/23 08/01/23 08/01/23 22:59 06:59 14:59 Intake Total 50 / 50 370 / 420 600 / 600 Balance 50 / 50 370 / 420 600 / 600 Weight last 48 hrs Weight 68.039 kg Weight 68.039 kg Weight 68.039 kg Physical Exam 2 Const: COMMON NORMALS: no acute distress and patient oriented x3 HENMT: COMMON NORMALS: normocephalic HEAD & SCALP: normocephalic Neck/C-Spine: COMMON NORMALS: no JVD Lymph: LYMPHATIC: no lymphadenopathy noted Resp: COMMON NORMALS: normal respiratory effort, No retractions and No use of accessory muscles AUSCULTATION: wheezes (Wheezes bilaterally, decreased bilateral air entry.) Cardio: COMMON NORMALS: no JVD, regular rate, regular rhythm, S1 normal heart sound present and S2 normal heart sound present RATE: regular rate RHYTHM: regular rhythm HEART SOUNDS: S1 normal heart sound present and S2 normal heart sound present GI: COMMON NORMALS: Normal to inspection, nondistended, normoactive bowel sounds present, Soft to palpation and non-tender PALPATION: Yes Soft to palpation Extremity: COMMON NORMALS: no calf tenderness and no pedal edema Neuro: COMMON NORMALS: patient oriented x3, CN's II-XII intact bilaterally and moves all extremities Psych: COMMON NORMALS: mental status grossly normal Data 08/01/23 04:35 08/01/23 04:35 A&P Assessment and plan (1) Acute hypoxic respiratory failure: (2) Asthma exacerbation: (3) Acute exacerbation of chronic obstructive pulmonary disease: Plan Acute hypoxic respiratory failure -Requiring 3 L -Wheezing and all lung sutton, decreased bilateral air entry. -Secondary to asthma, COPD Plan -Monitor respiratory status closely -Solu-Medrol 40 mg IV push every 8 hours -azithromycin -DuoNeb -Budesonide -Sputum culture -Pro-Gustavo, CRP, respiratory viral panel -CT angiogram of the chest -History of CAD, continue Plavix, statin -Full code -Lovenox for DVT prophylaxis Continue above plan for now. Expect another 48 to 72 hours hospitalization. Attestations 2 Medical Necessity Statement*: Expect another 48 to 72 hours of hospitalization. Diagnoses Acute hypoxic respiratory failure J96.01 Asthma exacerbation J45.901 Acute exacerbation of chronic obstructive pulmonary disease J44.1
[2023-08-02] VITALS (15 sets, daily range): BP systolic 115–127; BP diastolic 70–77; PULSE 58–98; RESP 16–20; TEMP 36.6–36.9; O2SAT 91–96
[2023-08-02] MEDS: ipratropium-albuterol 3 mL Neb INHALATION ×6 (00:07→20:59)
[2023-08-02] MEDS: methylPREDNISolone sod succ 40 mg/mL INJ IVP ×3 (01:38→18:07)
[2023-08-02] MEDS: azithromycin 500 MG in sodium chloride 0.9% 250 ML 250 MG IV (01:38)
[2023-08-02 04:13] LABS: Basophils % 0.2 %; Hematocrit 38.4 % (36-47); Lymphocytes # 1.1 10^3/uL (0.8-4.8); Lymphocytes % 4.3 %; Mean Corpuscular HGB Conc 32.6 g/dL (30-55); Mean Corpuscular Hemoglobin 30.3 pg (27-33); Mean Corpuscular Volume 93.2 fl (85-98); Mean Platelet Volume 10.5 fL (7.4-10.4); Monocytes # 0.5 10^3/uL (0.2-0.9); Monocytes % 1.9 %; Neutrophils % 92.6 %; Nucleated Red Blood Cells % 0 %; Platelet Count 329 10^3/cmm (157-399); Red Blood Count 4.12 10^6/uL (3.85-5.65); Red Cell Distribution Width 12.9 % (12.1-15.1); White Blood Count 25.47 10^3/uL (3.29-11.43)
[2023-08-02 04:33] LABS: Anion Gap 11.9 (5-19); Blood Urea Nitrogen 18 mg/dL (6-20); Calcium 9.2 mg/dL (8.5-10.5); Carbon Dioxide 25 mmol/L (22-29); Chloride 104 mmol/L (98-107); Glomerular Filtration Rate 102.7 mL/min (90-130); Glucose 131 mg/dL (65-115); Osmolality Calculated 288 mOsm/kg (285-295); Potassium 3.9 mmol/L (3.5-5.1); Sodium 137 mmol/L (136-145)
[2023-08-02] MEDS: enoxaparin 40 mg/0.4 mL Syringe SUBCUT (05:23)
[2023-08-02] MEDS: pantoprazole 40 mg SDV IVP (05:23)
[2023-08-02] MEDS: budesonide 0.5 mg/2 mL Neb INHALATION ×2 (07:54→21:00)
[2023-08-02] MEDS: fluoxetine 20 mg Capsule 40 MG PO (09:31)
[2023-08-02] MEDS: losartan 50 mg Tablet 25 MG PO (09:31)
[2023-08-02] MEDS: metoprolol succinate ER (24 HR) 25 mg Tablet PO (09:31)
[2023-08-02] MEDS: clopidogrel 75 mg Tablet PO (09:31)
[2023-08-02] MEDS: atorvastatin 40 mg Tablet 80 MG PO (09:32)
[2023-08-02] MEDS: levofloxacin-dextrose 5 % 750 MG/150 ML PREMIX 100 MG IV (09:34)
[2023-08-02 11:34] LABS: Glucose Point of Care 124 mg/dL (70-110)
--- NOTE | 2023-08-02 12:39 | CT_ITS ---
WS: [id number] CT ABDOMEN AND PELVIS WITH CONTRAST HISTORY: abdominal hernia TECHNIQUE: Imaging performed of the abdomen and pelvis with IV contrast. Single phase imaging of the abdomen. Coronal and sagittal reformats are submitted. All CT scans at [facility] use at [address] one of these dose optimization techniques: automated exposure control; mA and/or kV adjustment per patient size (includes targeted exams where dose is matched to clinical indication); or iterative re construction. IV CONTRAST: Omnipaque 350; 100 mL IV. Oral contrast: Yes. DLP: 675.43 mGy.cm COMPARISON: 07/26/2023 Lower thorax: Bronchial wall thickening and mild bronchiectasis at the lung bases. Small hiatal herni a. Heart is normal size. Liver/biliary system: Normal size with no intrahepatic dilatation. Gallbladder: Status post cholecystectomy. Pancreas: Normal size pancreas and pancreatic duct. No adjacent inflammation. Spleen: Normal size spleen. No mass or infarct. Adrenal glands: Normal. Right kidney: Normal. Left kidney: Normal. Aorta: Normal. Lymphadenopathy: None. Free fluid: None. GI tract: Increased food products and contrast within the stomach. No small bowel obstruction. Mild d iffuse constipation. Prior appendectomy. Mild diverticular burden in the distal colon without acute d iverticulitis. Abdominal wall: Tiny umbilical hernia. Small foci of air in the abdominal wall probably from injectio n sites. Pelvis: Prior hysterectomy. No free fluid or adenopathy. Negative bladder. Bones: Mild degenerative disc disease throughout the lumbar spine. No fractures. IMPRESSION: 1. Prior cholecystectomy and appendectomy. 2. Prior hysterectomy. 3. Mild diffuse constipation. 4. No acute abdominal or pelvic abnormalities. No free fluid or free air.
--- NOTE | 2023-08-02 12:39 | CT_ITS ---
WS: [id number] CT chest wo con [id number] HISTORY: Pneumonia. TECHNIQUE: Axial imaging performed through the thorax. Coronal and sagittal reformats are submitted. All CT scans at [facility] use at least one of these dose optimization techniques: automated exposure control; mA and/or kV adjustment per patient size (includes targeted exams where dose is mat ched to clinical indication); or iterative reconstruction. CONTRAST: None DLP: 463.73 mGy.cm COMPARISON: 08/01/2023 Lungs and central airway: Hyperexpanded lungs. Marked pulmonary hyperexpansion. There is a new subsol id consolidation RIGHT upper lobe abutting the fissure. There are a few scattered granulomata. Mild t hickening along the RIGHT fissure. Mild bronchiectasis lower lung sutton. Pleura: Normal. No pleural effusion. Heart and pericardium: Normal size heart with no pericardial effusion. Mediastinum and aletha: No mediastinum or hilar adenopathy. Oral contrast is present within a large por tion of the esophagus from reflux disease. Vessels: Normal size aortic and pulmonary artery. No coronary artery calcifications. Chest wall and lower neck: No soft tissue masses. Upper abdomen: Prior cholecystectomy. No adrenal mass. Osseous structures: No destructive process. IMPRESSION: 1. New subsolid consolidation RIGHT upper lobe abutting the fissure with mild pleural thickening tresa ng the RIGHT fissure. Consistent with interval development of pneumonia since 08/01/2023. Consider aspi ration pneumonia due to the sudden onset. 2. Chronic emphysema with bilateral lower lobe bronchiectasis. 3. Prior cholecystectomy. 4. Oral contrast in the esophagus. Consider reflux disease versus poor emptying of the esophagus.
--- NOTE | 2023-08-02 12:50 | P.PN_ITS ---
Subjective 2 Subjective: seen this am wbc [id number] complains of pain at hernia site Vitals/I&O/Wt Last Vital Signs Temp 98.3 F 08/02/23 11:46 Pulse 76 08/02/23 11:46 Resp 16 08/02/23 11:46 BP 121/73 08/02/23 11:46 Pulse Ox 95 08/02/23 11:46 O2 Del Method Room Air 08/02/23 11:22 O2 Flow Rate 0 08/01/23 21:56 08/01/23 08/02/23 08/02/23 22:59 06:59 14:59 Intake Total 1360 / 1960 250 / 2210 450 / 450 Balance 1360 / 1960 250 / 2210 450 / 450 Weight last 48 hrs Weight 72.802 kg Weight 68.039 kg Weight 68.039 kg Weight 68.039 kg Physical Exam 2 Const: COMMON NORMALS: no acute distress and patient oriented x3 HENMT: COMMON NORMALS: normocephalic HEAD & SCALP: normocephalic Neck/C-Spine: COMMON NORMALS: no JVD Lymph: LYMPHATIC: no lymphadenopathy noted Resp: COMMON NORMALS: normal respiratory effort, No retractions and No use of accessory muscles AUSCULTATION: wheezes (Wheezes bilaterally, decreased bilateral air entry.) Cardio: COMMON NORMALS: no JVD, regular rate, regular rhythm, S1 normal heart sound present and S2 normal heart sound present RATE: regular rate RHYTHM: regular rhythm HEART SOUNDS: S1 normal heart sound present and S2 normal heart sound present GI: COMMON NORMALS: Normal to inspection, nondistended, normoactive bowel sounds present, Soft to palpation and non-tender PALPATION: Yes Soft to palpation OTHER: ventral abd hernia palpated Extremity: COMMON NORMALS: no calf tenderness and no pedal edema Neuro: COMMON NORMALS: patient oriented x3, CN's II-XII intact bilaterally and moves all extremities Psych: COMMON NORMALS: mental status grossly normal Data 08/02/23 04:07 08/02/23 04:07 A&P Assessment and plan (1) Acute hypoxic respiratory failure: (2) Asthma exacerbation: (3) Acute exacerbation of chronic obstructive pulmonary disease: Plan Acute hypoxic respiratory failure -Requiring 3 L at admission -Wheezing and all lung sutton, decreased bilateral air entry. -Secondary to asthma, COPD Plan -Monitor respiratory status closely -Solu-Medrol 40 mg IV push every 8 hours -azithromycin -DuoNeb -Budesonide -Sputum culture -Pro-Gustavo, CRP, respiratory viral panel -CT angiogram of the chest -History of CAD, continue Plavix, statin - now room air, improving -Full code -Lovenox for DVT prophylaxis Abd ventral hernia - check ct abd with oral and iv contrast - consult gen surgery if ct findings positive Continue above plan for now. Expect another 48 to 72 hours hospitalization. Attestations 2 Medical Necessity Statement*: Expect another 48 to 72 hours of hospitalization. Diagnoses Acute hypoxic respiratory failure J96.01 Asthma exacerbation J45.901 Acute exacerbation of chronic obstructive pulmonary disease J44.1
--- NOTE | 2023-08-02 13:59 | PC.SOCIAL ---
Pg 2 IMM Explained to pt Pg 2 IMM. No questions voiced. Provided pt a copy. Initialed, dated, & timed a copy & placed in chart.
[2023-08-02] MEDS: diphenhydrAMINE 50 mg/mL SDV 1mL IVP (14:07)
[2023-08-02] MEDS: morphine 4 mg/mL SDV 1 mL 2 MG IVP (14:15)
[2023-08-02 14:17] LABS: Lactic Sepsis W/Reflex 2.4 mmol/L (0.5-2.2)
[2023-08-02] MEDS: iohexol 350 mg/mL 500 mL Btl (per mL) IV (14:27)
[2023-08-02] MEDS: barium sulfate 450 mL Oral Susp PO (14:31)
[2023-08-02 15:35] LABS: Procalcitonin 0.02 ng/mL (0-0.5)
[2023-08-02] MEDS: lidocaine 2% viscous 15 ML, aluminum-mag hydrox-simethicon 30 ML, sucralfate oral liq 1 GM PO (15:37)
[2023-08-02] MEDS: vancomycin 1,250 MG/250 ML PIGGYBACK 250 MG IV (15:38)
[2023-08-02 15:45] LABS: Reflex Lactate Order REFLEX LACTIC ORDERD
[2023-08-02] MEDS: piperacillin-tazobactam 3.375 GM in sodium chloride 0.9% (plus) 50 ML IV ×2 (16:19→23:16)
[2023-08-02] MEDS: sodium chloride 0.9% 1,000 ML 50 ML IV (17:52)
[2023-08-02 19:32] LABS: Lactic Acid level (Lactate) 2.3 mmol/L (0.5-2.2)
[2023-08-02] MEDS: trazodone 50 mg Tablet PO (20:54)
--- NOTE | 2023-08-02 22:23 | PC.NURSE ---
light crackles heard at bilateral lung bases
[2023-08-03] VITALS (15 sets, daily range): BP systolic 92–133; BP diastolic 50–75; PULSE 54–86; RESP 16–20; TEMP 36.2–36.9; O2SAT 90–97
[2023-08-03] MEDS: methylPREDNISolone sod succ 40 mg/mL INJ IVP ×3 (02:41→20:02)
[2023-08-03] MEDS: vancomycin 1,250 MG/250 ML PIGGYBACK 250 MG IV ×2 (03:25→15:39)
[2023-08-03] MEDS: ipratropium-albuterol 3 mL Neb INHALATION ×5 (04:55→20:27)
[2023-08-03 05:15] LABS: Basophils % 0.1 %; Hematocrit 35.1 % (36-47); Lymphocytes # 1.2 10^3/uL (0.8-4.8); Lymphocytes % 6.6 %; Mean Corpuscular HGB Conc 32.5 g/dL (30-55); Mean Corpuscular Hemoglobin 30.6 pg (27-33); Mean Corpuscular Volume 94.4 fl (85-98); Mean Platelet Volume 11.3 fL (7.4-10.4); Monocytes # 0.4 10^3/uL (0.2-0.9); Monocytes % 2.4 %; Neutrophils # 16.28 10^3/uL (1.8-7.7); Neutrophils % 89.7 %; Nucleated Red Blood Cells % 0 %; Platelet Count 151 10^3/cmm (157-399); Red Blood Count 3.72 10^6/uL (3.85-5.65); Red Cell Distribution Width 13.4 % (12.1-15.1); White Blood Count 18.12 10^3/uL (3.29-11.43)
[2023-08-03 05:40] LABS: Anion Gap 11.2 (5-19); Blood Urea Nitrogen 14 mg/dL (6-20); Calcium 8.5 mg/dL (8.5-10.5); Carbon Dioxide 26 mmol/L (22-29); Chloride 107 mmol/L (98-107); Glomerular Filtration Rate 102.7 mL/min (90-130); Glucose 122 mg/dL (65-115); Osmolality Calculated 292 mOsm/kg (285-295); Potassium 4.2 mmol/L (3.5-5.1); Sodium 140 mmol/L (136-145)
[2023-08-03] MEDS: enoxaparin 40 mg/0.4 mL Syringe SUBCUT (06:09)
[2023-08-03] MEDS: pantoprazole 40 mg SDV IVP (06:09)
[2023-08-03] MEDS: piperacillin-tazobactam 3.375 GM in sodium chloride 0.9% (plus) 50 ML IV ×2 (06:38→16:51)
[2023-08-03] MEDS: clopidogrel 75 mg Tablet PO (06:39)
[2023-08-03] MEDS: metoprolol succinate ER (24 HR) 25 mg Tablet PO (06:46)
[2023-08-03] MEDS: budesonide 0.5 mg/2 mL Neb INHALATION ×2 (07:22→20:27)
[2023-08-03] MEDS: losartan 50 mg Tablet 25 MG PO (09:02)
[2023-08-03] MEDS: atorvastatin 40 mg Tablet 80 MG PO (09:02)
[2023-08-03] MEDS: fluoxetine 20 mg Capsule 40 MG PO (09:02)
[2023-08-03] MEDS: metoclopramide 5 mg/mL SDV 2 mL IVP ×2 (10:17→15:50)
--- NOTE | 2023-08-03 13:36 | P.PN_ITS ---
Subjective 2 Subjective: seen this am wbc [id number] she feels better Vitals/I&O/Wt Last Vital Signs Temp 97.5 F L 08/03/23 11:57 Pulse 58 L 08/03/23 11:57 Resp 20 H 08/03/23 11:57 BP 92/50 08/03/23 11:57 Pulse Ox 92 08/03/23 11:57 O2 Del Method Room Air 08/03/23 11:57 O2 Flow Rate 1 08/02/23 15:14 08/02/23 08/03/23 08/03/23 22:59 06:59 14:59 Intake Total 1540 / 2110 300 / 2410 290 / 290 Balance 1540 / 2110 300 / 2410 290 / 290 Weight last 48 hrs Weight 70.902 kg Weight 72.802 kg Physical Exam 2 Const: COMMON NORMALS: no acute distress and patient oriented x3 HENMT: COMMON NORMALS: normocephalic HEAD & SCALP: normocephalic Neck/C-Spine: COMMON NORMALS: no JVD Lymph: LYMPHATIC: no lymphadenopathy noted Resp: COMMON NORMALS: normal respiratory effort, No retractions and No use of accessory muscles AUSCULTATION: wheezes (Wheezes bilaterally, decreased bilateral air entry.) Cardio: COMMON NORMALS: no JVD, regular rate, regular rhythm, S1 normal heart sound present and S2 normal heart sound present RATE: regular rate RHYTHM: regular rhythm HEART SOUNDS: S1 normal heart sound present and S2 normal heart sound present GI: COMMON NORMALS: Normal to inspection, nondistended, normoactive bowel sounds present, Soft to palpation and non-tender PALPATION: Yes Soft to palpation OTHER: ventral abd hernia palpated Extremity: COMMON NORMALS: no calf tenderness and no pedal edema Neuro: COMMON NORMALS: patient oriented x3, CN's II-XII intact bilaterally and moves all extremities Psych: COMMON NORMALS: mental status grossly normal Data 08/03/23 04:36 08/03/23 04:36 Micro: Microbiology 08/03/23 06:55 Gram Stain - Final Sputum - Expectorated Sputum A&P Assessment and plan (1) Acute hypoxic respiratory failure: (2) Asthma exacerbation: (3) Acute exacerbation of chronic obstructive pulmonary disease: Plan Acute hypoxic respiratory failure -Requiring 3 L at admission -Wheezing and all lung sutton, decreased bilateral air entry. -Secondary to asthma, COPD Plan -Monitor respiratory status closely -Solu-Medrol 40 mg IV push every 8 hours -azithromycin -DuoNeb -Budesonide -Sputum culture -Pro-Gustavo, CRP, respiratory viral panel -CT angiogram of the chest -History of CAD, continue Plavix, statin - now room air, improving Ct chest: 1. New subsolid consolidation RIGHT upper lobe abutting the fissure with mild pleural thickening along the RIGHT fissure. Consistent with interval development of pneumonia since 08/01/2023. Consider aspiration pneumonia due to the sudden onset. 2. Chronic emphysema with bilateral lower lobe bronchiectasis. 3. Prior cholecystectomy. 4. Oral contrast in the esophagus. Consider reflux disease versus poor emptying of the esophagus. -Full code -Lovenox for DVT prophylaxis Umbilical hernia - 1. New subsolid consolidation RIGHT upper lobe abutting the fissure with mild pleural thickening along the RIGHT fissure. Consistent with interval development of pneumonia since 08/01/2023. Consider aspiration pneumonia due to the sudden onset. 2. Chronic emphysema with bilateral lower lobe bronchiectasis. 3. Prior cholecystectomy. 4. Oral contrast in the esophagus. Consider reflux disease versus poor emptying of the esophagus. Continue above plan for now. Expect another 48 to 72 hours hospitalization. Attestations 2 Medical Necessity Statement*: Expect another 48 hours of hospitalization. Diagnoses Acute hypoxic respiratory failure J96.01 Asthma exacerbation J45.901 Acute exacerbation of chronic obstructive pulmonary disease J44.1
[2023-08-03] MEDS: sodium chloride 0.9% 1,000 ML 50 ML IV (14:23)
[2023-08-04] VITALS (9 sets, daily range): BP systolic 111–152; BP diastolic 65–81; PULSE 58–82; RESP 16–18; TEMP 36.2–36.7; O2SAT 92–94
[2023-08-04] MEDS: ipratropium-albuterol 3 mL Neb INHALATION ×4 (00:01→11:01)
[2023-08-04] MEDS: piperacillin-tazobactam 3.375 GM in sodium chloride 0.9% (plus) 50 ML IV ×2 (00:12→08:19)
[2023-08-04 03:02] LABS: Basophils % 0.1 %; Hematocrit 36.6 % (36-47); Lymphocytes # 1.2 10^3/uL (0.8-4.8); Lymphocytes % 7.4 %; Mean Corpuscular HGB Conc 32.5 g/dL (30-55); Mean Corpuscular Hemoglobin 30.2 pg (27-33); Mean Corpuscular Volume 92.9 fl (85-98); Mean Platelet Volume 11.1 fL (7.4-10.4); Monocytes # 0.6 10^3/uL (0.2-0.9); Monocytes % 3.3 %; Neutrophils # 14.38 10^3/uL (1.8-7.7); Nucleated Red Blood Cells % 0 %; Platelet Count 241 10^3/cmm (157-399); Red Blood Count 3.94 10^6/uL (3.85-5.65); Red Cell Distribution Width 13.3 % (12.1-15.1); White Blood Count 16.55 10^3/uL (3.29-11.43)
[2023-08-04 03:24] LABS: Vancomycin Trough 17.9 ug/mL (10-15)
[2023-08-04 03:26] LABS: Anion Gap 12.4 (5-19); Blood Urea Nitrogen 22 mg/dL (6-20); Calcium 8.8 mg/dL (8.5-10.5); Carbon Dioxide 26 mmol/L (22-29); Chloride 108 mmol/L (98-107); Glomerular Filtration Rate 85.9 mL/min (90-130); Glucose 117 mg/dL (65-115); Osmolality Calculated 298 mOsm/kg (285-295); Potassium 4.4 mmol/L (3.5-5.1); Sodium 142 mmol/L (136-145)
[2023-08-04] MEDS: vancomycin 1,250 MG/250 ML PIGGYBACK 250 MG IV (04:27)
[2023-08-04] MEDS: clopidogrel 75 mg Tablet PO (06:49)
[2023-08-04] MEDS: enoxaparin 40 mg/0.4 mL Syringe SUBCUT (06:49)
[2023-08-04] MEDS: pantoprazole 40 mg SDV IVP (06:49)
[2023-08-04] MEDS: budesonide 0.5 mg/2 mL Neb INHALATION (08:05)
[2023-08-04] MEDS: atorvastatin 40 mg Tablet 80 MG PO (08:19)
[2023-08-04] MEDS: fluoxetine 20 mg Capsule 40 MG PO (08:20)
[2023-08-04] MEDS: metoprolol succinate ER (24 HR) 25 mg Tablet PO (08:20)
[2023-08-04] MEDS: losartan 50 mg Tablet 25 MG PO (08:20)
[2023-08-04] MEDS: methylPREDNISolone sod succ 40 mg/mL INJ IVP (09:00)
[2023-08-04] MEDS: metoclopramide 5 mg/mL SDV 2 mL IVP (09:00)
[2023-08-04] MEDS: sodium chloride 0.9% 1,000 ML 20 ML IV (10:37)
--- NOTE | 2023-08-04 13:23 | P.DS_ITS ---
Discharge Providers Date of Admission: 07/31/23 22:14 Date of Discharge: August 04, 2023 Attending Provider at Admission: Vinny Rodriguez MD Attending Provider at Discharge: Mylene Isaac MD Primary Care Provider: Lauri Krishnan MD Diagnoses at Discharge Discharge Diagnosis (1) Acute hypoxic respiratory failure: Status: Acute (2) Asthma exacerbation: Status: Acute (3) Acute exacerbation of chronic obstructive pulmonary disease: Status: Acute Reason for Visit Reason for Visit: sob chest pain Hospital Course Hospital Course History of asthma severe persistent, history of CAD status post stenting, history of smoking, diastolic CHF, anemia presented with shortness of breath and wheezing for last 4 days. Initially was ruled in for a COPD exacerbation and was requiring 3 L of nasal cannula. She did have interval worsening of leukocytosis therefore CT chest was checked. She has been diagnosed with new subsolid consolidation right upper lobe pneumonia. Possible aspiration? Has not complained of any difficulty swallowing. CT abdomen pelvis also completed since patient had complained of a umbilical hernia and abdominal pain. It showed Increased food products and contrast within the stomach. No small bowel obstruction. Mild diffuse constipation. Prior appendectomy. Mild diverticular burden in the distal colon without acute diverticulitis. she does have a small hiatal hernia and small umbilical hernia for which she will be referred to as an outpatient to see general surgery at this time. Patient was also given Reglan during hospital stay which improved her symptoms. She will be discharged on the same. Patient was switched over to IV antibiotics and at this point will be discharged home on a course of steroids and antibiotics to complete a 14-day course and to follow-up with pulmonology and general surgery as an outpatient. Patient is now on room air and doing well. Will discharge home. Physical Exam Const: COMMON NORMALS: no acute distress and patient oriented x3 HENMT: COMMON NORMALS: normocephalic HEAD & SCALP: normocephalic Neck/C-Spine: COMMON NORMALS: no JVD Lymph: LYMPHATIC: no lymphadenopathy noted Resp: COMMON NORMALS: normal respiratory effort, No retractions and No use of accessory muscles AUSCULTATION: wheezes (Wheezes bilaterally, decreased bilateral air entry.) Cardio: COMMON NORMALS: no JVD, regular rate, regular rhythm, S1 normal heart sound present and S2 normal heart sound present RATE: regular rate RHYTHM: regular rhythm HEART SOUNDS: S1 normal heart sound present and S2 normal heart sound present GI: COMMON NORMALS: Normal to inspection, nondistended, normoactive bowel sounds present, Soft to palpation and non-tender PALPATION: Yes Soft to palpation OTHER: ventral abd hernia palpated Extremity: COMMON NORMALS: no calf tenderness and no pedal edema Neuro: COMMON NORMALS: patient oriented x3, CN's II-XII intact bilaterally and moves all extremities Psych: COMMON NORMALS: mental status grossly normal Discharge Data Studies Completed and Pending Completed Studies During Hospitalization Category Date Time Status CT abdomen pelvis w con* [id number] Stat Cat Scan 08/02/23 12:[address] chest wo con [id number] Routine Cat Scan 08/02/23 12:[address] chest wo con [id number] Stat Cat Scan 07/31/23 23:34 Completed XR chest 1V portable [id number] Stat Exams 07/31/23 19:20 Completed Pending at discharge Category Date Time Status MRSA [Methicillin Resistant S.aureu] Routine Lab 08/02/23 19:20 Received Sputum Culture and Gram Stain Stat Lab 08/02/23 15:02 Results Radiology Impressions Chest X-Ray 07/31/23 19:20 IMPRESSION: No acute findings. Laboratory Results WBC 16.55 10^3/uL (3.29-11.43) H 08/04/23 02:39 RBC 3.94 10^6/uL (3.85-5.65) 08/04/23 02:39 Hgb 11.90 g/dL (11.27-16.99) 08/04/23 02:39 Hct 36.6 % (36-47) 08/04/23 02:39 MCV 92.9 fl (85-98) 08/04/23 02:39 MCH 30.2 pg (27-33) 08/04/23 02:39 MCHC 32.5 g/dL (30-55) 08/04/23 02:39 RDW 13.3 % (12.1-15.1) 08/04/23 02:39 Plt Count 241 10^3/cmm (157-399) D 08/04/23 02:39 MPV 11.1 fL (7.4-10.4) H 08/04/23 02:39 Neut % (Auto) 87.0 % 08/04/23 02:39 Lymph % (Auto) 7.4 % 08/04/23 02:39 Gordon % (Auto) 3.3 % 08/04/23 02:39 Eos % (Auto) 0.0 % 08/04/23 02:39 Baso % (Auto) 0.1 % 08/04/23 02:39 Neut # (Auto) 14.38 10^3/uL (1.8-7.7) H 08/04/23 02:39 Lymph # (Auto) 1.2 10^3/uL (0.8-4.8) 08/04/23 02:39 Gordon # (Auto) 0.6 10^3/uL (0.2-0.9) 08/04/23 02:39 Eos # (Auto) 0.0 10^3/uL (0.0-0.8) 08/04/23 02:39 Baso # (Auto) 0.0 10^3/uL (0.0-0.1) 08/04/23 02:39 Nucleated RBC % (auto) 0 % 08/04/23 02:39 Nucleated RBCs # 0.0 /100WBC 08/04/23 02:39 Sodium 142 mmol/L (136-145) 08/04/23 02:39 Potassium 4.4 mmol/L (3.5-5.1) 08/04/23 02:39 Chloride 108 mmol/L (98-107) H 08/04/23 02:39 Carbon Dioxide 26 mmol/L (22-29) 08/04/23 02:39 Anion Gap 12.4 (5-19) 08/04/23 02:39 BUN 22 mg/dL (6-20) H 08/04/23 02:39 Creatinine 0.7 mg/dL (0.5-0.9) 08/04/23 02:39 GFR Calculation 85.9 mL/min (90-130) L 08/04/23 02:39 Glucose 117 mg/dL (65-115) H 08/04/23 02:39 POC Glucose 124 mg/dL (70-110) H 08/02/23 11:16 Calculated Osmolality 298 mOsm/kg (285-295) H 08/04/23 02:39 Lactic Acid 2.4 mmol/L (0.5-2.2) H 08/02/23 13:52 Lactic Acid (Sepsis) 2.3 mmol/L (0.5-2.2) H 08/02/23 18:20 Calcium 8.8 mg/dL (8.5-10.5) 08/04/23 02:39 Phosphorus 3.6 mg/dL (2.5-4.5) 08/01/23 04:35 Magnesium 2.5 mg/dL (1.7-2.3) H 08/01/23 04:35 Total Bilirubin 0.2 mg/dL (0.15-1.2) 07/31/23 19:41 AST 11 U/L (0-32) 07/31/23 19:41 ALT 8 U/L (0-33) 07/31/23 19:41 Alkaline Phosphatase 138 U/L (35-105) H 07/31/23 19:41 C-Reactive Protein 7.5 mg/L (0.0-4.9) H 07/31/23 19:41 NT-Pro-B Natriuret Pep 453 pg/mL (0-125) H 07/31/23 19:41 Total Protein 7.4 g/dL (6.6-8.7) 07/31/23 19:41 Albumin 3.7 g/dL (3.5-5.2) 07/31/23 19:41 Globulin 3.7 g/dL (1.3-4.6) 07/31/23 19:41 Triglycerides 135 mg/dL (0-150) 07/31/23 19:41 Cholesterol 218 mg/dL (0-200) H 07/31/23 19:41 LDL Cholesterol, Calc 142 mg/dL (50-129) H 07/31/23 19:41 HDL Cholesterol 49 mg/dL (60-100) L 07/31/23 19:41 LDL/HDL Ratio 2.90 RATIO (0.00-3.22) 07/31/23 19:41 Cholesterol/HDL Ratio 4.45 mg/dL (0.0-4.40) H 07/31/23 19:41 Procalcitonin 0.02 ng/mL (0-0.5) 08/02/23 04:07 TSH 2.49 uIU/mL (0.27-4.20) 07/31/23 19:41 Vancomycin Trough 17.9 ug/mL (10-15) H 08/04/23 02:39 Adenovirus (PCR) Not detected (NOT DETECT) 08/01/23 05:30 C. pneumoniae DNA (PCR) Not detected (NOT DETECT) 08/01/23 05:30 Coronavirus 229E (PCR) Not detected (NOT DETECT) 08/01/23 05:30 Human Metapneumovir PCR Not detected (NOT DETECT) 08/01/23 05:30 Influenza A (H1) PCR Not detected (NOT DETECT) 08/01/23 05:30 Influ A (H1/09) PCR Not detected (NOT DETECT) 08/01/23 05:30 Influenza A (H3) PCR Not detected (NOT DETECT) 08/01/23 05:30 Influenza Type A Ag negative (Negative) 07/31/23 20:05 Influenza Type A (PCR) Not detected (NOT DETECT) 08/01/23 05:30 Influenza Type B Ag negative (Negative) 07/31/23 20:05 Influenza Type B (PCR) Not detected (NOT DETECT) 08/01/23 05:30 M. pneumoniae (PCR) Not detected (NOT DETECT) 08/01/23 05:30 Parainfluenza 1 (PCR) Not detected (NOT DETECT) 08/01/23 05:30 Parainfluenza 2 (PCR) Not detected (NOT DETECT) 08/01/23 05:30 Parainfluenza 3 (PCR) Not detected (NOT DETECT) 08/01/23 05:30 Parainfluenza 4 (PCR) Not detected (NOT DETECT) 08/01/23 05:30 RSV Type A (PCR) Not detected (NOT DETECT) 08/01/23 05:30 RSV Type B (PCR) Not detected (NOT DETECT) 08/01/23 05:30 Entero/Rhino (PCR) Not detected (NOT DETECT) 08/01/23 05:30 SARS-CoV-2 (PCR) Not detected (NOT DETECT) 08/01/23 05:30 SARS-CoV-2 Ag (Rapid) negative (Negative) 07/31/23 20:05 Vitals Last Vital Signs Temp 97.1 F L 08/04/23 12:00 Pulse 68 08/04/23 12:00 Resp 18 08/04/23 12:00 BP 111/65 08/04/23 12:00 Pulse Ox 92 08/04/23 11:39 O2 Del Method Room Air 08/04/23 11:39 O2 Flow Rate 1 08/02/23 15:14 Discharge Plan Discharge Patient Disposition: Home Condition: Stable Prescriptions: New metoclopramide HCl [Reglan] 5 mg tablet 5 mg PO BID 3 Days Qty: 6 0RF amoxicillin-pot clavulanate 875-125 mg tablet 1 tab PO BID 12 Days Qty: 24 0RF methylprednisolone [Medrol (Guille)] 4 mg tablets,dose pack See Rx Instructions .ROUTE .COMPLEX Qty: 21 0RF Rx Instructions: orally per package directions Continued nitroglycerin 0.4 mg tablet, sublingual 0.4 mg SUBLINGUAL Q5M PRN (Reason: chest pain) Qty: 25 6RF Rx Instructions: do not exceed 3 doses per episode cetirizine [Zyrtec] 10 mg tablet 10 mg PO QAM ipratropium-albuterol 0.5 mg-3 mg(2.5 mg base)/3 mL solution for nebulization 3 ml inhalation Q4H PRN (Reason: wheezing) Qty: 180 6RF azelastine 137 mcg (0.1 %) aerosol,spray 1 spray INTRANASAL BID@0700,2200 30 Days Qty: 30 4RF epinephrine [EpiPen Jr 2-Guille] 0.15 mg/0.3 mL auto-injector 0.15 mg IM Q30M PRN (Reason: anaphylaxis) Qty: 2 1RF (DME) Cockup Splint See Rx Instructions .Route .MEDSUPPLY Qty: 1 0RF Rx Instructions: As directed Flonase Allergy Relief 50 mcg/actuation spray,suspension 1 spray INTRANASAL BID@ Qty: 15.8 3RF Perforomist 20 mcg/2 mL solution for nebulization See Rx Instructions .ROUTE .COMPLEX Qty: 60 11RF Dose Instruction: USE 1 VIAL IN NEBULIZER EVERY 12 HOURS - Morning and Evening Rx Instructions: USE 1 VIAL IN NEBULIZER EVERY 12 HOURS - Morning and Evening Yupelri 175 mcg/3 mL solution for nebulization See Rx Instructions .ROUTE .COMPLEX Qty: 30 11RF Dose Instruction: USE 1 VIAL IN NEBULIZER DAILY - DO NOT MIX WITH OTHER NEB MEDS, USE BEFORE OR AFTER Rx Instructions: USE 1 VIAL IN NEBULIZER DAILY - DO NOT MIX WITH OTHER NEB MEDS, USE BEFORE OR AFTER atorvastatin 80 mg tablet 80 mg PO DAILY Qty: 90 1RF clopidogrel 75 mg tablet 75 mg PO DAILY@0730 Qty: 90 1RF losartan 25 mg tablet 25 mg PO DAILY Qty: 90 1RF pantoprazole 40 mg tablet,delayed release (DR/EC) 40 mg PO BID Qty: 90 2RF Singulair 10 mg tablet 10 mg PO DAILY Qty: 90 1RF metoprolol succinate 25 mg tablet extended release 24 hr 25 mg PO DAILY@0730 Qty: 90 1RF ezetimibe 10 mg tablet 10 mg PO DAILY Qty: 90 3RF budesonide 0.5 mg/2 mL Suspension For Nebulization 0.5 mg inhalation BID PRN (Reason: Shortness Of Breath) fluoxetine 40 mg capsule 40 mg PO QAM trazodone 50 mg tablet 50 mg PO BEDTIME PRN (Reason: Sleep) Breztri Aerosphere 160-9-4.8 mcg/actuation HFA aerosol inhaler 2 inh INHALATION BID potassium chloride 20 mEq tablet,ER particles/crystals 40 meq PO QAM furosemide 40 mg tablet 40 mg PO EVERY OTHER DAY Xolair 150 mg/mL syringe 300 mg SUBCUT Q14D hydrocodone-acetaminophen 5-325 mg tablet 0.5 tab PO Q12H PRN (Reason: Pain) Rx Instructions: 1/2 tab every 12 hours- max dose 1 tab daily as needed methadone 5 mg tablet 5 mg PO TID mirtazapine 7.5 mg tablet 7.5 mg PO DAILY Held prednisone 5 mg tablet 5 mg PO EVERY OTHER DAY Hold Instructions: start after finishing medrol dose pack Discharge Orders: Discharge Order (Routine); Ordered 08/04/23 Ordered By: Mylene Isaac Other Ambulatory Orders: Complete Blood Count w/Auto (Routine) Timeframe: 20230808 Location: Determined by Patient Ordered By: Mylene Isaac Referrals: Tyrell Yu MD [Physician] - 2 weeks JeaninerSidney MD [Physician] - 2 weeks Lauri Krishnan MD [Primary Care Provider] - 4-7 days Discharge Diet: Cardiac Discharge Activity: Resume usual activity Patient Instructions: Opioid Safety Discharge Attestations Time Spent in Discharge Care*: greater than 30 min Status at Discharge: Cognitive status at discharge: cognitively intact , Behavioral status at discharge: cooperative and independent in ADL's , Quality Metrics Clinical Quality Measures [ No reported AMI, CVA or VTE this stay] Coding Level of Care Code Acute Code for Chg Fwd Diagnoses Acute hypoxic respiratory failure J96.01 Asthma exacerbation J45.901 Acute exacerbation of chronic obstructive pulmonary disease J44.1
[2023-08-05 13:54] LABS: Methicillin-Resist S.aureu PCR NOT DETECTED (NOT DETECTED)
== END 2023-08-04 15:35 | disposition home or self-care (01) | DRG 190 ==
LOC: ER 21:47 → MEDSURG 22:14
PROVIDERS: Admitting Provider Family Medicine; Emergency Provider Emergency Medicine; PCP Family Medicine; Visit Provider Internal Medicine
DX: J44.1 Chronic obstructive pulmonary disease with (acute) exacerbation (principal); J96.01 Acute respiratory failure with hypoxia; F33.2 Major depressive disorder, recurrent severe without psychotic features; I50.32 Chronic diastolic (congestive) heart failure; J45.51 Severe persistent asthma with (acute) exacerbation; I25.10 Atherosclerotic heart disease of native coronary artery without angina pectoris; E78.5 Hyperlipidemia, unspecified; F43.12 Post-traumatic stress disorder, chronic; G47.33 Obstructive sleep apnea (adult) (pediatric); K21.9 Gastro-esophageal reflux disease without esophagitis; K43.9 Ventral hernia without obstruction or gangrene; I25.2 Old myocardial infarction; Z11.52 Encounter for screening for COVID-19; Z79.02 Long term (current) use of antithrombotics/antiplatelets; Z95.5 Presence of coronary angioplasty implant and graft; Z87.891 Personal history of nicotine dependence
CPT/HCPCS: 36415; 36416; 71045; 71250; 74177; 80048; 80053; 80061; 80202; 82962; 83605; 83735; 83880; 84100; 84145; 84443; 85025; 86140; 87070; 87205; 87426; 87486; 87581; 87633; 87641; 87804; 93005; 94640; 96365; 96372; 96375; 99285; C9113; J0456; J1200; J1650; J1956; J2270; J2543; J2765; J2920; J2930; J3370; J3475; J7030; J7050; J7613; J7626; Q9967

== ENCOUNTER → 2023-08-14 10:42 | Outpatient (BNVA) | payer MEDICARE, MEDICAID, SELFPAY | PROVIDERS: PCP Family Medicine; Visit Provider Surgery | DX: K46.9 Unspecified abdominal hernia without obstruction or gangrene (principal); R19.7 Diarrhea, unspecified; R10.9 Unspecified abdominal pain; G89.29 Other chronic pain | CPT/HCPCS: 99204 ==

== ENCOUNTER 2023-08-20 11:15 | Outpatient (CLI) | payer MEDICARE, MEDICAID, SELFPAY | END 2023-08-20 11:16 | disposition home or self-care (01) | LOC: LAB 11:16 | PROVIDERS: PCP Family Medicine; Visit Provider Surgery | DX: K46.9 Unspecified abdominal hernia without obstruction or gangrene (principal); R19.7 Diarrhea, unspecified | CPT/HCPCS: 82274; 83630; 83993 ==

== ENCOUNTER 2023-08-31 11:19 | Emergency (ER) | payer MEDICARE, MEDICAID, SELFPAY ==
[2023-08-31 12:13] VITALS: BP 123/73; PULSE 92; RESP 17; TEMP 36.7; O2SAT 94
[2023-08-31 13:45] LABS: Add Urine Microscopic? NO; Charge for UA Resulting for Rev
[2023-08-31 13:48] LABS: Basophils # 0.1 10^3/uL (0.0-0.1); Basophils % 0.6 %; Eosinophils # 0.1 10^3/uL (0.0-0.8); Eosinophils % 1.4 %; Hematocrit 38.1 % (36-47); Lymphocytes % 36.8 %; Mean Corpuscular HGB Conc 32.8 g/dL (30-55); Mean Corpuscular Hemoglobin 30.2 pg (27-33); Mean Platelet Volume 11.2 fL (7.4-10.4); Monocytes # 0.4 10^3/uL (0.2-0.9); Monocytes % 5.3 %; Neutrophils # 4.46 10^3/uL (1.8-7.7); Neutrophils % 55.4 %; Nucleated Red Blood Cells % 0 %; Platelet Count 284 10^3/cmm (157-399); Red Blood Count 4.14 10^6/uL (3.85-5.65); Red Cell Distribution Width 13.2 % (12.1-15.1); White Blood Count 8.06 10^3/uL (3.29-11.43)
--- NOTE | 2023-08-31 13:51 | ED_ITS ---
HPI - GI Bleed 2 General: Chief complaint: Abdominal Pain Stated complaint: blood in vomit, tar like stool, sob Time Seen by Provider: 08/31/23 12:46 History of Present Illness: The patient presents with a chief complaint of tarry stools and coffee ground emesis. She reports that the symptoms began the night before last, with a sensation of fullness in her abdomen. She woke up the following morning and started vomiting, describing the vomitus as coffee ground in appearance and mainly black in color. The patient also reports having tarry stools, with two episodes today and four episodes yesterday, which were similar to diarrhea in consistency. The patient has a history of COPD and is currently experiencing allergy season. She has a known hernia, which was reduced in the office about a month ago, and has since not come out again. She reports some abdominal discomfort and localized pain in the area of the hernia, but not severe. The patient also mentions feeling lightheaded. The patient has a history of low potassium levels and was previously on an antiplatelet medication, which she stopped taking about a month ago. She is not currently on any blood thinners. Associated symptoms: Denies fever(s) or rash Review of Systems 2 General: Reports: 10 or more systems reviewed and unremarkable except in HPI and below Const: Denies: fever(s) Card: Denies: palpitations or edema Resp: Denies: dyspnea Skin/Breast: Denies: rash PFSH ED 2 PFSH: Medical History Nicotine addiction CAD (coronary artery disease) (~12/2019) -Known history of CAD with recent stenting of LAD due to anterior wall STEMI in December -Follows up with Dr. Salcedo; f/u in [address] Bass Essential (primary) hypertension -VSS; continue to monitor -continue oral antihypertensives Hypomagnesemia Hypokalemia Encounter for chronic pain management Diastolic congestive heart failure Shortness of breath Severe persistent asthma Closed fracture distal radius and ulna Insomnia Hyperlipidemia Smokers' cough Acute exacerbation of CHF (congestive heart failure) Normocytic anemia -Seems to have intermittent normocytic anemia with a baseline hemoglobin of about 10-11, intermittently normal -Has been on dual antiplatelet therapy given recent stenting -Continue to monitor H&H closely; stable so far -iron and ferritin low; start on iron replacement Asthma -severe persistent, started xolair 02/04/2020 -follow up with Dr. West New onset of congestive heart failure -Could be secondary to recent STEMI requiring intervention with stenting of LAD last month -Echo: EF=57%, normal systolic and diastolic function, no RWMA, trace TR, trace UT -has been on IV diuresis with Lasix; switched to oral lasix -Continue to monitor electrolytes and renal function -Daily weights, monitor ins and outs -BNP elevated at 948 -Chest x-ray reported as unremarkable -Close monitoring of respiratory status, supplemental oxygen as needed Methadone maintenance therapy patient Acute anterior wall MA Chronic post-traumatic stress disorder Generalized anxiety disorder Major depressive disorder, recurrent severe without psychotic features Chronic radicular lumbar pain Herniated disc Sleep apnea, unspecified Lesion of ulnar nerve, bilateral COPD (chronic obstructive pulmonary disease) -no acute exacerbation -does not appear to be oxygen dependent at baseline -recently restarted smoking, 1/2 PPD KRISTOFER on CPAP GERD (gastroesophageal reflux disease) -on PPI Surgical History H/O oral surgery S/P section Presence of stent in LAD coronary artery (01/23/20) H/O bilateral oophorectomy History of cholecystectomy History of carpal tunnel release H/O skin graft Family History Father Myocardial infarct, Onset Age: 45 Brother Myocardial infarct, Onset Age: 53 Other CAD (coronary artery disease) Closed fracture distal radius and ulna Social History Smoking and tobacco/nicotine status: former use of tobacco/nicotine Quit status (tobacco/nicotine): has quit using Year quit tobacco: 2019 - 1PPD x 30 Years Second hand smoke exposure: Yes Alcohol intake: former Substance/Drug Use: never Lives independently: Yes Household members: family Marital status: Current occupational status: disabled Do you think of yourself as: Straight/Heterosexual Current gender identity: Female Physical Exam 2 Const: COMMON NORMALS: no acute distress, patient oriented x3, healthy appearing, alert and well nourished HENMT: COMMON NORMALS: normocephalic HEAD & SCALP: normocephalic Eye: COMMON NORMALS: EOMs intact bilaterally Neck/C-Spine: COMMON NORMALS: full ROM and supple Resp: COMMON NORMALS: normal respiratory effort, No retractions and clear to auscultation bilaterally AUSCULTATION: clear to auscultation bilaterally Cardio: COMMON NORMALS: regular rate, regular rhythm, No gallops present (Cardio) and No murmurs present (Cardio) RATE: regular rate RHYTHM: r egular rhythm GI: COMMON NORMALS: Soft to palpation and No hepatosplenomegaly present P ALPATION: Yes Soft to palpation, Yes Tenderness to palpation present (GI) Details: LUQ, No Guarding due to palpation present (GI), Yes No hepatosplenomegaly present and No Rebound tenderness present Extremity: GENERAL: Yes normal exam except as noted Neuro: COMMON NORMALS: patient oriented x3 SENSORIUM/ORIENTATION: Yes alert Skin: COMMON NORMALS: no rashes or lesions noted GENERAL SKIN EXAM: no rashes or lesions noted Course 2 Vital Signs: Vital signs: Vital Signs Temperature 98.1 F 08/31/23 16:59 Pulse Rate 73 08/31/23 16:59 Respiratory Rate 19 H 08/31/23 16:59 Blood Pressure 113/73 08/31/23 16:59 Pulse Oximetry 94 08/31/23 16:59 Oxygen Delivery Me thod Room Air 08/31/23 16:17 MDM - GI Bleed Medical Decision Making 58-year-old female presented to the emergency department for evaluation of GI bleed. On laboratory evaluation patient's hemoglobin was within normal range. Her BUN was negative. She did not have any hematemesis or hematochezia during her ER stay. Discussed with the patient admission to GI versus outpatient management with GI. Risk and benefits of a repeat CT scan with contrast were discussed. Given her clinical stability during her ER stay discharged outpatient was reasonable. Patient was in agreement with this plan. Return precautions were discussed. Patient was discharged home in stable condition. Patient stated that she would follow-up with her outpatient GI doctor and 1 to 2 weeks. Lab Data 08/31/23 13:39 08/31/23 13:39 Laboratory Results WBC 8.06 10^3/uL (3.29-11.43) 08/31/23 13:39 RBC 4.14 10^6/uL (3.85-5.65) 08/31/23 13:39 Hgb 12.50 g/dL (11.27-16.99) 08/31/23 13:39 Hct 38.1 % (36-47) 08/31/23 13:39 MCV 92.0 fl (85-98) 08/31/23 13:39 MCH 30.2 pg (27-33) 08/31/23 13:39 MCHC 32.8 g/dL (30-55) 08/31/23 13:39 RDW 13.2 % (12.1-15.1) 08/31/23 13:39 Plt Count 284 10^3/cmm (157-399) 08/31/23 13:39 MPV 11.2 fL (7.4-10.4) H 08/31/23 13:39 Neut % (Auto) 55.4 % 08/31/23 13:39 Lymph % (Auto) 36.8 % 08/31/23 13:39 Stanley % (Auto) 5.3 % 08/31/23 13:39 Eos % (Auto) 1.4 % 08/31/23 13:39 Baso % (Auto) 0.6 % 08/31/23 13:39 Neut # (Auto) 4.46 10^3/uL (1.8-7.7) 08/31/23 13:39 Lymph # (Auto) 3.0 10^3/uL (0.8-4.8) 08/31/23 13:39 Stanley # (Auto) 0.4 10^3/uL (0.2-0.9) 08/31/23 13:39 Eos # (Auto) 0.1 10^3/uL (0.0-0.8) 08/31/23 13:39 Baso # (Auto) 0.1 10^3/uL (0.0-0.1) 08/31/23 13:39 Nucleated RBC % (auto) 0 % 08/31/23 13:39 Nucleated RBCs # 0.0 /100WBC 08/31/23 13:39 PT 13.40 SECONDS (12.1-14.9) 08/31/23 13:39 INR 0.99 (0.8-1.2) 08/31/23 13:39 APTT 28.3 SECONDS (23.9-36.7) 08/31/23 13:39 Sodium 142 mmol/L (136-145) 08/31/23 13:39 Potassium 4.7 mmol/L (3.5-5.1) 08/31/23 13:39 Chloride 102 mmol/L (98-107) 08/31/23 13:39 Carbon Dioxide 27 mmol/L (22-29) 08/31/23 13:39 Anion Gap 17.7 (5-19) 08/31/23 13:39 BUN 12 mg/dL (6-20) 08/31/23 13:39 Creatinine 0.7 mg/dL (0.5-0.9) 08/31/23 13:39 GFR Calculation 85.9 mL/min (90-130) L 08/31/23 13:39 Glucose 80 mg/dL (65-115) 08/31/23 13:39 Calculated Osmolality 293 mOsm/kg (285-295) 08/31/23 13:39 Calcium 8.9 mg/dL (8.5-10.5) 08/31/23 13:39 Total Bilirubin 0.4 mg/dL (0.15-1.2) 08/31/23 13:39 AST 13 U/L (0-32) 08/31/23 13:39 ALT 13 U/L (0-33) 08/31/23 13:39 Alkaline Phosphatase 120 U/L (35-105) H 08/31/23 13:39 Total Protein 7.4 g/dL (6.6-8.7) 08/31/23 13:39 Albumin 4.1 g/dL (3.5-5.2) 08/31/23 13:39 Globulin 3.3 g/dL (1.3-4.6) 08/31/23 13:39 Urine Color Straw (Yellow) 08/31/23 13:13 Urine Appearance Clear (CLEAR) 08/31/23 13:13 Urine pH 5 (5-7) 08/31/23 13:13 Ur Specific [place] 1.005 (1.005-1.030) 08/31/23 13:13 Urine Protein Neg (Negative) 08/31/23 13:13 Urine Glucose (UA) Norm (Normal) 08/31/23 13:13 Urine Ketones Negative (Negative) 08/31/23 13:13 Urine Blood Neg (Negative) 08/31/23 13:13 Urine Nitrate Negative (Negative) 08/31/23 13:13 Urine Bilirubin Neg (Negative) 08/31/23 13:13 Urine Urobilinogen Norm mg/dL (Negative) 08/31/23 13:13 Ur Leukocyte Esterase Negative (Negative) 08/31/23 13:13 No radiology studies performed this visit Discharge Plan Discharge Patient Disposition: Home Clinical Impression: Acute GI bleeding Condition: Stable Prescriptions: No Action nitroglycerin 0.4 mg tablet, sublingual 0.4 mg SUBLINGUAL Q5M PRN (Reason: chest pain) Qty: 25 6RF Rx Instructions: do not exceed 3 doses per episode cetirizine [Zyrtec] 10 mg tablet 10 mg PO QAM ipratropium-albuterol 0.5 mg-3 mg(2.5 mg base)/3 mL solution for nebulization 3 ml inhalation Q4H PRN (Reason: wheezing) Qty: 180 6RF azelastine 137 mcg (0.1 %) aerosol,spray 1 spray INTRANASAL BID@0700,2200 30 Days Qty: 30 4RF epinephrine [EpiPen Jr 2-Guille] 0.15 mg/0.3 mL auto-injector 0.15 mg IM Q30M PRN (Reason: anaphylaxis) Qty: 2 1RF (DME) Cockup Splint See Rx Instructions .Route .MEDSUPPLY Qty: 1 0RF Rx Instructions: As directed Flonase Allergy Relief 50 mcg/actuation spray,suspension 1 spray INTRANASAL BID@, Qty: 15.8 3RF Perforomist 20 mcg/2 mL solution for nebulization See Rx Instructions .ROUTE .COMPLEX Qty: 60 11RF Dose Instruction: USE 1 VIAL IN NEBULIZER EVERY 12 HOURS - Morning and Evening Rx Instructions: USE 1 VIAL IN NEBULIZER EVERY 12 HOURS - Morning and Evening Yupelri 175 mcg/3 mL solution for nebulization See Rx Instructions .ROUTE .COMPLEX Qty: 30 11RF Dose Instruction: USE 1 VIAL IN NEBULIZER DAILY - DO NOT MIX WITH OTHER NEB MEDS, USE BEFORE OR AFTER Rx Instructions: USE 1 VIAL IN NEBULIZER DAILY - DO NOT MIX WITH OTHER NEB MEDS, USE BEFORE OR AFTER atorvastatin 80 mg tablet 80 mg PO DAILY Qty: 90 1RF clopidogrel 75 mg tablet 75 mg PO DAILY@0730 Qty: 90 1RF losartan 25 mg tablet 25 mg PO DAILY Qty: 90 1RF pantoprazole 40 mg tablet,delayed release (DR/EC) 40 mg PO BID Qty: 90 2RF Singulair 10 mg tablet 10 mg PO DAILY Qty: 90 1RF ezetimibe 10 mg tablet 10 mg PO DAILY Qty: 90 3RF metoprolol succinate 25 mg tablet extended release 24 hr 25 mg PO DAILY@0730 Qty: 90 1RF Medrol (Guille) 4 mg tablets,dose pack See Rx Instructions .ROUTE .COMPLEX Qty: 21 0RF Rx Instructions: orally per package directions budesonide 0.5 mg/2 mL Suspension For Nebulization 0.5 mg inhalation BID PRN (Reason: Shortness Of Breath) fluoxetine 40 mg capsule 40 mg PO QAM trazodone 50 mg tablet 50 mg PO BEDTIME PRN (Reason: Sleep) Breztri Aerosphere 160-9-4.8 mcg/actuation HFA aerosol inhaler 2 inh INHALATION BID potassium chloride 20 mEq tablet,ER particles/crystals 40 meq PO QAM furosemide 40 mg tablet 40 mg PO EVERY OTHER DAY prednisone 5 mg tablet 5 mg PO EVERY OTHER DAY Hold Instructions: start after finishing medrol dose pack Xolair 150 mg/mL syringe 300 mg SUBCUT Q14D hydrocodone-acetaminophen 5-325 mg tablet 0.5 tab PO Q12H PRN (Reason: Pain) Rx Instructions: 1/2 tab every 12 hours- max dose 1 tab daily as needed methadone 5 mg tablet 5 mg PO TID mirtazapine 7.5 mg tablet 7.5 mg PO DAILY Discharge Orders: Discharge ED (Routine); Ordered 08/31/23 Ordered By: Aleksandar Law Referrals: Lauri Krishnan MD [Primary Care Provider] - Discharge Diet: Advance as tolerated Discharge Activity: Resume usual activity Patient Instructions: Opioid Safety, Pain Management Coding Level of Care Code ED [employer] Representative for Gracie Laguna
[2023-08-31] MEDS: sodium chloride 0.9% 500 ML IV (13:53)
[2023-08-31 13:54] LABS: Bilirubin Urine Neg (Negative); Blood Urine Neg (Negative); Glucose Urine UA Norm (Normal); Ketones Urine Negative (Negative); Leukocyte Esterase Urine Negative (Negative); Nitrate Urine Negative (Negative); Protein Urine Neg (Negative); Specific Gravity, Urine 1.005 (1.005-1.030); Urine Appearance Clear (CLEAR); Urine Color Straw (Yellow); Urobilinogen Urine Norm (Negative); pH Urine 5 (5-7)
[2023-08-31] MEDS: ondansetron 2 mg/ML SDV 2 mL 4 MG IVP (13:55)
--- NOTE | 2023-08-31 13:56 | PC.NURSE ---
4 mg zofran IVP administered by Faby Hamilton RN.
[2023-08-31 14:13] LABS: INR 0.99 (0.8-1.2)
[2023-08-31 14:14] LABS: Partial Thromboplastin Time 28.3 SECONDS (23.9-36.7)
[2023-08-31 14:18] LABS: Alanine Aminotransferase 13 U/L (0-33); Albumin Level 4.1 g/dL (3.5-5.2); Alkaline Phosphatase 120 U/L (35-105); Anion Gap 17.7 (5-19); Aspartate Amino Transferase 13 U/L (0-32); Blood Urea Nitrogen 12 mg/dL (6-20); Calcium 8.9 mg/dL (8.5-10.5); Carbon Dioxide 27 mmol/L (22-29); Chloride 102 mmol/L (98-107); Creatinine Clr Calc Pharmacy 83.0254; Globulin 3.3 g/dL (1.3-4.6); Glomerular Filtration Rate 85.9 mL/min (90-130); Glucose 80 mg/dL (65-115); Osmolality Calculated 293 mOsm/kg (285-295); Potassium 4.7 mmol/L (3.5-5.1); Sodium 142 mmol/L (136-145); Total Bilirubin 0.4 mg/dL (0.15-1.2); Total Protein 7.4 g/dL (6.6-8.7)
[2023-08-31 15:22] VITALS: BP 113/73; PULSE 79; RESP 19; O2SAT 95
[2023-08-31 16:17] VITALS: BP 113/73; PULSE 73; RESP 19; O2SAT 94
--- NOTE | 2023-08-31 16:36 | ECG_ITS ---
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 Measurements Intervals [place] Rate: 95 P: 81 NC: 155 QRS: 90 QRSD: 80 T: 95 QT: 346 QTc: 437 Interpretive Statements SINUS RHYTHM Compared to ECG 07/31/2023 19:16:21 Sinus tachycardia no longer present Electronically Signed On 09-02-2023 9:32:21 DECORATOR HAND by Andrew Stock M.D. [id number] f
[2023-08-31 16:59] VITALS: BP 113/73; PULSE 73; RESP 19; TEMP 36.7; O2SAT 94
== END 2023-08-31 17:00 | disposition home or self-care (01) ==
PROVIDERS: Emergency Provider General Practice; PCP Family Medicine
DX: K92.2 Gastrointestinal hemorrhage, unspecified (principal); Z79.02 Long term (current) use of antithrombotics/antiplatelets; Z87.891 Personal history of nicotine dependence; I25.10 Atherosclerotic heart disease of native coronary artery without angina pectoris; I13.0 Hypertensive heart and chronic kidney disease with heart failure and stage 1 through stage 4 chronic kidney disease, or unspecified chronic kidney disease; N18.9 Chronic kidney disease, unspecified; I50.9 Heart failure, unspecified; E78.5 Hyperlipidemia, unspecified; Z79.891 Long term (current) use of opiate analgesic; J44.9 Chronic obstructive pulmonary disease, unspecified
CPT/HCPCS: 80053; 81003; 85025; 85610; 85730; 93005; 96361; 96374; 99284; J2405; J7040

== ENCOUNTER 2023-09-18 09:20 | Day surgery (SDC) | payer MEDICARE, MEDICAID, SELFPAY ==
[2023-09-18 09:56] VITALS: BP 122/84; PULSE 87; RESP 18; TEMP 36.3; O2SAT 92; BMI 25.7
--- NOTE | 2023-09-18 09:57 | W.PM.OPSFHP ---
Same Day Surgery H&P Indication for Procedure/HPI DATE OF PROCEDURE: September 18, 2023 CHIEF COMPLAINT/INDICATIONFOR SURGICAL PROCEDURE: nausea and vomit PREOP DIAGNOSIS: suspecter gi bleeding PLANNED PROCEDURE: Operation Date: 09/18/23 10:20 Proposed Procedures p 98432 egd R10.9(Not Applicable) - Tyrell Yu MD Medications/Allergies* Home Medications Medication Instructions Recorded Confirmed Type cetirizine 10 mg tablet (Zyrtec) 10 mg PO QAM 01/03/23 09/18/23 History budesonide 0.5 mg/2 mL suspension 0.5 mg inhalation BID PRN 01/04/23 09/18/23 History for nebulization Shortness Of Breath budesonide 160 mcg-glycopyr 9 2 inh inhalation BID 01/04/23 09/16/23 History mcg-formot 4.8 mcg/actuation HFA inhaler (Breztri Aerosphere) fluoxetine 40 mg capsule 40 mg PO QAM 01/04/23 09/18/23 History potassium chloride 20 mEq 40 meq PO QAM 01/04/23 09/18/23 History tablet,extended release(part/cryst) trazodone 50 mg tablet 50 mg PO BEDTIME PRN Sleep 01/04/23 09/18/23 History furosemide 40 mg tablet 40 mg PO EVERY OTHER DAY 07/26/23 09/18/23 History hydrocodone 5 mg-acetaminophen 325 0.5 tab PO Q12H PRN Pain 07/26/23 09/16/23 History mg tablet mirtazapine 7.5 mg tablet 7.5 mg PO DAILY 07/26/23 09/18/23 History omalizumab 150 mg/mL subcutaneous 300 mg SUBCUT Q14D 07/26/23 09/18/23 History syringe (Xolair) prednisone 5 mg tablet 5 mg PO EVERY OTHER DAY 07/26/23 09/18/23 History Allergies/Adverse Reactions Allergy/AdvReac Type Severity Reaction Status Date / Time doxycycline Allergy Intermediate ALGY-Hives Verified 08/14/23 10:53 Iodinated Contrast Media Allergy Intermediate ALGY-Hives Verified 08/14/23 10:53 codeine Allergy Unknown Unknown Verified 08/14/23 10:53 Sulfa (Sulfonamide Allergy Unknown Unknown Verified 08/14/23 10:53 Antibiotics) gabapentin Allergy Unknown Verified 08/14/23 10:53 Pertinent History/Comorbid Conditions* Medical History (Updated 09/08/23 @ 00:00 by JAQUELINE Ball) Nicotine addiction CAD (coronary artery disease) (~12/2019) -Known history of CAD with recent stenting of LAD due to anterior wall STEMI in December -Follows up with Dr. Salcedo; f/u in [address] Bass Essential (primary) hypertension -VSS; continue to monitor -continue oral antihypertensives Hypomagnesemia Hypokalemia Encounter for chronic pain management Diastolic congestive heart failure Shortness of breath Severe persistent asthma Closed fracture distal radius and ulna Insomnia Hyperlipidemia Smokers' cough Acute exacerbation of CHF (congestive heart failure) Normocytic anemia -Seems to have intermittent normocytic anemia with a baseline hemoglobin of about 10-11, intermittently normal -Has been on dual antiplatelet therapy given recent stenting -Continue to monitor H&H closely; stable so far -iron and ferritin low; start on iron replacement Asthma -severe persistent, started xolair 02/04/2020 -follow up with Dr. West New onset of congestive heart failure -Could be secondary to recent STEMI requiring intervention with stenting of LAD last month -Echo: EF=57%, normal systolic and diastolic function, no RWMA, trace TR, trace [place] -has been on IV diuresis with Lasix; switched to oral lasix -Continue to monitor electrolytes and renal function -Daily weights, monitor ins and outs -BNP elevated at 948 -Chest x-ray reported as unremarkable -Close monitoring of respiratory status, supplemental oxygen as needed Methadone maintenance therapy patient Acute anterior wall [place] Chronic post-traumatic stress disorder Generalized anxiety disorder Major depressive disorder, recurrent severe without psychotic features Chronic radicular lumbar pain Herniated disc Sleep apnea, unspecified Lesion of ulnar nerve, bilateral COPD (chronic obstructive pulmonary disease) -no acute exacerbation -does not appear to be oxygen dependent at baseline -recently restarted smoking, 1/2 PPD KRISTOFER on CPAP GERD (gastroesophageal reflux disease) -on PPI Surgical History (Updated 08/05/23 @ 00:00 by JAQUELINE Ball) H/O oral surgery S/P section Presence of stent in LAD coronary artery (01/23/20) H/O bilateral oophorectomy History of cholecystectomy History of carpal tunnel release H/O skin graft Family History (Updated 10/30/22 @ 13:26 by Clay Paredes PA-C) CAD (coronary artery disease) Myocardial infarct Father, Onset Age: 45 Brother, Onset Age: 53 Closed fracture distal radius and ulna Social History Smoking and tobacco/nicotine status: former use of tobacco/nicotine Quit status (tobacco/nicotine): has quit using Year quit tobacco: 2020 - 1PPD x 30 Years Second hand smoke exposure: Yes Alcohol intake: former Substance/Drug Use: never Lives independently: Yes Household members: family Marital status: Current occupational status: disabled Do you think of yourself as: Straight/Heterosexual Current gender identity: Female Pertinent Exam Findings alert, oriented x 3, clear to auscultation bilaterally and regular rate & rhythm Recommendations Surgery/Procedure today Coding Level of Care Code Acute Code for Chg Luz Elena
[2023-09-18] MEDS: sodium chloride 0.9% 1,000 ML 30 ML IV (10:12)
--- NOTE | 2023-09-18 10:28 | ANES.PREANE2 ---
Pre-Anesthetic Assessment Height/Weight: Height 1.63 m Weight 68.039 kg Temp Pulse Resp BP Pulse Ox O2 Del Method 97.4 F L 87 18 122/84 92 Room Air 09/18/23 09:56 09/18/23 09:56 09/18/23 09:56 09/18/23 09:56 09/18/23 09:56 09/18/23 09:56 Preop Diagnosis: suspecter gi bleeding Operation Date: 09/18/23 10:20 Proposed Procedures p [id number] egd R10.9(Not Applicable) - Tyrell Yu MD Familial anesthetic complications: none Was Beta Temo taken within 24 hours: Yes Was Clonidine taken within 24 hours: N/A Last intake: Intake Last Liquid Date 09/17/23 Last Liquid Time 23:50 Last Solid Date 09/17/23 Last Solid Time 12:00 Social Tobacco 0.5 pack(s) per day Exam alert, oriented x 3, clear to auscultation bilaterally and regular rate & rhythm Airway Submandibular: within normal limits Cervical ROM: within normal limits Mallampati: Class II Dentition: full Pulmonary Asthma, Chronic Obstructive Pulmonary Disease, Exertional Dyspnea and Shortness of Breath Hospitalized with ETT 2018 CV/HEM Coronary Artery Disease, Hypertension and Myocardial Infarction stents x 1 2019 None reported Hepatic None reported GI Gastroesophageal Reflux Disease Metabolic None reported Musc/skel None reported Anesthetic Plan ASA status: 3 Anesthesia: MAC Risk of > 500 ml blood loss (7ml/kg in children): No Medications/Allergies Home Medications Medication Instructions Recorded Confirmed Last Taken Type fluticasone propionate 50 1 spray intranasal BID@ #15.8 10/09/21 09/18/23 07/31/23 Rx mcg/actuation nasal mL spray,suspension (Flonase Allergy Relief) formoterol fumarate 20 mcg/2 mL See Rx Instructions .Route 01/24/22 09/16/23 09/16/23 Rx solution for nebulization .COMPLEX #60 vials (Perforomist) revefenacin 175 mcg/3 mL solution See Rx Instructions .Route 01/24/22 09/18/23 07/31/23 Rx for nebulization (Yupelri) .COMPLEX #30 vials azelastine 137 mcg (0.1 %) nasal 1 spray intranasal BID@0700,2200 02/13/22 09/18/23 09/17/23 Rx spray aerosol 30 days #30 mL epinephrine 0.15 mg/0.3 mL 0.15 mg (0.3 mL) IM Q30M PRN 06/19/22 09/16/23 09/16/23 Rx injection,auto-injector (EpiPen Jr anaphylaxis #2 ea 2-Guille) nitroglycerin 0.4 mg sublingual 0.4 mg sublingual Q5M PRN chest 06/21/22 09/18/23 Unknown Rx tablet pain #25 tabs atorvastatin 80 mg tablet 80 mg PO DAILY #90 tabs 08/09/22 09/18/23 07/31/23 Rx clopidogrel 75 mg tablet 75 mg PO DAILY@0730 #90 tabs 08/09/22 09/18/23 07/31/23 Rx losartan 25 mg tablet 25 mg PO DAILY #90 tabs 08/09/22 09/18/23 07/31/23 Rx pantoprazole 40 mg tablet,delayed 40 mg PO BID #90 tabs 08/13/22 09/18/23 09/17/23 Rx release montelukast 10 mg tablet 10 mg PO DAILY #90 tabs 08/31/22 09/18/23 07/31/23 Rx (Singulair) Cockup Splint #1 ea 10/30/22 09/18/23 09/16/23 Rx cetirizine 10 mg tablet (Zyrtec) 10 mg PO QAM 01/03/23 09/18/23 07/31/23 History budesonide 0.5 mg/2 mL suspension 0.5 mg inhalation BID PRN 01/04/23 09/18/23 09/18/23 History for nebulization Shortness Of Breath budesonide 160 mcg-glycopyr 9 2 inh inhalation BID 01/04/23 09/16/23 09/16/23 History mcg-formot 4.8 mcg/actuation HFA inhaler (Breztri Aerosphere) fluoxetine 40 mg capsule 40 mg PO QAM 01/04/23 09/18/23 09/17/23 History potassium chloride 20 mEq 40 meq PO QAM 01/04/23 09/18/23 07/31/23 History tablet,extended release(part/cryst) trazodone 50 mg tablet 50 mg PO BEDTIME PRN Sleep 01/04/23 09/18/23 Unknown History ezetimibe 10 mg tablet 10 mg PO DAILY #90 tabs 06/17/23 09/18/23 07/31/23 Rx ipratropium 0.5 mg-albuterol 3 mg 3 ml inhalation Q4H PRN wheezing 07/18/23 09/16/23 09/16/23 Rx (2.5 mg base)/3 mL nebulization #180 mL soln furosemide 40 mg tablet 40 mg PO EVERY OTHER DAY 07/26/23 09/18/23 09/17/23 History hydrocodone 5 mg-acetaminophen 325 0.5 tab PO Q12H PRN Pain 07/26/23 09/16/23 09/16/23 History mg tablet mirtazapine 7.5 mg tablet 7.5 mg PO DAILY 07/26/23 09/18/23 07/31/23 History omalizumab 150 mg/mL subcutaneous 300 mg SUBCUT Q14D 07/26/23 09/18/23 09/13/23 History syringe (Xolair) prednisone 5 mg tablet 5 mg PO EVERY OTHER DAY 07/26/23 09/18/23 07/24/23 History metoprolol succinate 25 mg 25 mg PO DAILY@0730 #90 tabs 08/19/23 09/18/23 Unknown Rx tablet,extended release 24 hr Allergies Allergy/AdvReac Type Severity Reaction Status Date / Time doxycycline Allergy Intermediate ALGY-Hives Verified 08/14/23 10:53 Iodinated Contrast Media Allergy Intermediate ALGY-Hives Verified 08/14/23 10:53 codeine Allergy Unknown Unknown Verified 08/14/23 10:53 Sulfa (Sulfonamide Allergy Unknown Unknown Verified 08/14/23 10:53 Antibiotics) gabapentin Allergy Unknown Verified 08/14/23 10:53 Current Medications Generic Name Dose Route Start Last Admin Trade Name Freq PRN Reason Stop Dose Admin Sodium Chloride 1,000 mls @ 30 mls/hr 09/18/23 09:45 09/18/23 10:12 Sodium Chloride 0.9% IV 09/19/23 09:44 30 mls/hr .Q24H CARLEY Administration PFSH Anesthesia Medical History Nicotine addiction CAD (coronary artery disease) (~12/2019) -Known history of CAD with recent stenting of LAD due to anterior wall STEMI in December -Follows up with Dr. Salcedo; f/u in [address] Bass Essential (primary) hypertension -VSS; continue to monitor -continue oral antihypertensives Hypomagnesemia Hypokalemia Encounter for chronic pain management Diastolic congestive heart failure Shortness of breath Severe persistent asthma Closed fracture distal radius and ulna Insomnia Hyperlipidemia Smokers' cough Acute exacerbation of CHF (congestive heart failure) Normocytic anemia -Seems to have intermittent normocytic anemia with a baseline hemoglobin of about 10-11, intermittently normal -Has been on dual antiplatelet therapy given recent stenting -Continue to monitor H&H closely; stable so far -iron and ferritin low; start on iron replacement Asthma -severe persistent, started xolair 02/04/2020 -follow up with Dr. West New onset of congestive heart failure -Could be secondary to recent STEMI requiring intervention with stenting of LAD last month -Echo: EF=57%, normal systolic and diastolic function, no RWMA, trace [place], trace [place] -has been on IV diuresis with Lasix; switched to oral lasix -Continue to monitor electrolytes and renal function -Daily weights, monitor ins and outs -BNP elevated at 948 -Chest x-ray reported as unremarkable -Close monitoring of respiratory status, supplemental oxygen as needed Methadone maintenance therapy patient Acute anterior wall [place] Chronic post-traumatic stress disorder Generalized anxiety disorder Major depressive disorder, recurrent severe without psychotic features Chronic radicular lumbar pain Herniated disc Sleep apnea, unspecified Lesion of ulnar nerve, bilateral COPD (chronic obstructive pulmonary disease) -no acute exacerbation -does not appear to be oxygen dependent at baseline -recently restarted smoking, 1/2 PPD KRISTOFER on CPAP GERD (gastroesophageal reflux disease) -on PPI Surgical History H/O oral surgery S/P section Presence of stent in LAD coronary artery (01/23/20) H/O bilateral oophorectomy History of cholecystectomy History of carpal tunnel release H/O skin graft Family History Father Myocardial infarct, Onset Age: 45 Brother Myocardial infarct, Onset Age: 53 Other CAD (coronary artery disease) Closed fracture distal radius and ulna Social History Smoking and tobacco/nicotine status: former use of tobacco/nicotine Quit status (tobacco/nicotine): has quit using Year quit tobacco: 2020 - 1PPD x 30 Years Second hand smoke exposure: Yes Alcohol intake: former Substance/Drug Use: never Lives independently: Yes Household members: family Marital status: Current occupational status: disabled Do you think of yourself as: Straight/Heterosexual Current gender identity: Female Data Anesthesia Cardiac Studies: Echocardiogram 05/17/22 Echocardiogram Ultrasound 02/10/20 Sestamibi Stress Test (Cardiology) 08/26/19 Holter Monitor 07/08/19
[2023-09-18 10:56] VITALS: BP 119/83; PULSE 88; RESP 16; TEMP 36.3; O2SAT 94
[2023-09-18 11:02] VITALS: BP 115/83; PULSE 81; RESP 18; O2SAT 94
--- NOTE | 2023-09-18 23:15 | ANE.PACU2 ---
Inpatient post-anesthesia follow up: Airway intact: Yes Vital signs: Temperature 97.4 F Pulse Rate 81 Respiratory Rate 18 Blood Pressure 115/83 Pulse Oximetry 94 Oxygen Delivery Me thod Room Air Oxygen Flow Rate Fraction of Inspir ed Oxygen Hydration adequate: Yes Nausea and vomiting: No Pain level: 1 Mental status: Baseline
== END 2023-09-18 11:13 | disposition home or self-care (01) ==
PROVIDERS: PCP Family Medicine; Visit Provider Surgery
PROC: 0DJ08ZZ Inspection of Upper Intestinal Tract, Via Natural or Artificial Opening Endoscopic (ICD-10-PCS; CPT 43235; principal; 2023-09-18 10:20)
DX: K21.9 Gastro-esophageal reflux disease without esophagitis (principal); K44.9 Diaphragmatic hernia without obstruction or gangrene; K29.50 Unspecified chronic gastritis without bleeding; F17.200 Nicotine dependence, unspecified, uncomplicated; J44.9 Chronic obstructive pulmonary disease, unspecified; I25.10 Atherosclerotic heart disease of native coronary artery without angina pectoris; I25.2 Old myocardial infarction; Z95.5 Presence of coronary angioplasty implant and graft; I11.0 Hypertensive heart disease with heart failure; I50.30 Unspecified diastolic (congestive) heart failure; E78.5 Hyperlipidemia, unspecified; F41.1 Generalized anxiety disorder; G47.30 Sleep apnea, unspecified; G47.33 Obstructive sleep apnea (adult) (pediatric)
CPT/HCPCS: 43235; 88305; 88342; J2704; J7030

== ENCOUNTER → 2023-10-01 10:05 | Outpatient (BNVA) | payer MEDICARE, MEDICAID, SELFPAY | PROVIDERS: PCP Family Medicine; Visit Provider Surgery | DX: K21.9 Gastro-esophageal reflux disease without esophagitis (principal) | CPT/HCPCS: 99213 ==

== ENCOUNTER 2024-01-07 23:11 | Emergency (ER) | payer MEDICARE, MEDICAID, SELFPAY ==
--- NOTE | 2024-01-07 23:16 | ECG_ITS ---
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 Measurements Intervals [place] Rate: 111 P: 73 [place]: 154 QRS: 93 QRSD: 82 T: 81 QT: 368 QTc: 502 Interpretive Statements SINUS TACHYCARDIA WITH OCCASIONAL VENTRICULAR PREMATURE COMPLEXES BORDERLINE RIGHT AXIS DEVIATION [QRS AXIS > 90] Compared to ECG 08/31/2023 12:32:21 Ventricular premature complex(es) now present Sinus rhythm no longer present Electronically Signed On 01-08-2024 9:43:11 CDT by Andrew Stock M.D. [email or web address]/[id number] f
[2024-01-07 23:18] VITALS: BP 153/97; PULSE 113; RESP 16; TEMP 36.8; O2SAT 90
--- NOTE | 2024-01-07 23:26 | XRR_ITS ---
PROCEDURE INFORMATION: Exam: XR Abdomen Exam date and time: 01/07/2024 11:41 PM Age: 58 years old Clinical indication: Abdominal tenderness; Prior surgery; Surgery date: 6+ months; Surgery type: Gb, oophorectomy; Additional info: Abdominal pain TECHNIQUE: Imaging protocol: Radiologic exam of the abdomen. Views: 2 Views. Upright and supine views. COMPARISON: CT chest wo con [id number] 08/02/2023 2:19 PM FINDINGS: Lungs: Stable calcified granulomata. No pulmonary consolidation. Mild pulmonary hyperinflation. Heart/Mediastinum: The cardiomediastinal silhouette is within normal limits. Gastrointestinal tract: Nonspecific bowel-gas pattern without evidence of large or small bowel obstruction. Intraperitoneal space: Right upper quadrant clips are noted. Bones/joints: Severe degenerative changes of the left femoroacetabular joint. Moderate degenerative change of the right femoroacetabular joint. Questionable age-indeterminate left femoral neck fracture. Soft tissues: Bilateral lower pelvic surgical changes, likely inguinal hernia repair. XR/XR acute abdomen series [id number] IMPRESSION: 1. No acute cardiopulmonary disease. 2. No plain film evidence of acute intra-abdominal or pelvic process. 3. Questionable age-indeterminate left femoral neck fracture. Correlate with history and physical exam.
[2024-01-07] MEDS: ondansetron 2 mg/ML SDV 2 mL 8 MG IVP (23:39)
[2024-01-07] MEDS: HYDROmorphone 1 mg/mL INJ 1 mL IVP (23:39)
[2024-01-07] MEDS: famotidine 20 mg/2 mL INJ 40 MG IVP (23:39)
[2024-01-07 23:47] LABS: Basophils # 0.1 10^3/uL (0.0-0.1); Basophils % 0.5 %; Eosinophils # 0.1 10^3/uL (0.0-0.8); Eosinophils % 0.8 %; Hematocrit 43.4 % (36-47); Lymphocytes # 4.4 10^3/uL (0.8-4.8); Lymphocytes % 28.8 %; Mean Corpuscular HGB Conc 33.2 g/dL (30-55); Mean Corpuscular Hemoglobin 29.6 pg (27-33); Mean Corpuscular Volume 89.1 fl (85-98); Mean Platelet Volume 10.9 fL (7.4-10.4); Monocytes # 1.2 10^3/uL (0.2-0.9); Neutrophils # 9.37 10^3/uL (1.8-7.7); Neutrophils % 61.1 %; Nucleated Red Blood Cells % 0 %; Platelet Count 375 10^3/cmm (157-399); Red Blood Count 4.87 10^6/uL (3.85-5.65); Red Cell Distribution Width 15.4 % (12.1-15.1); White Blood Count 15.35 10^3/uL (3.29-11.43)
[2024-01-08 00:03] VITALS: BP 127/97; PULSE 110; RESP 16; O2SAT 89
[2024-01-08 00:12] LABS: Troponin(5th) Baseline 7 ng/L (0-10)
[2024-01-08 00:15] LABS: Alanine Aminotransferase 8 U/L (0-33); Albumin Level 4.2 g/dL (3.5-5.2); Alkaline Phosphatase 126 U/L (35-105); Anion Gap 16.8 (5-19); Aspartate Amino Transferase 9 U/L (0-32); Blood Urea Nitrogen 20 mg/dL (6-20); Calcium 10.4 mg/dL (8.5-10.5); Carbon Dioxide 31 mmol/L (22-29); Chloride 99 mmol/L (98-107); Globulin 2.6 g/dL (1.3-4.6); Glomerular Filtration Rate 85.9 mL/min (90-130); Glucose 118 mg/dL (65-115); Osmolality Calculated 300 mOsm/kg (285-295); Potassium 3.8 mmol/L (3.5-5.1); Sodium 143 mmol/L (136-145); Total Bilirubin 0.4 mg/dL (0.15-1.2); Total Protein 6.8 g/dL (6.6-8.7)
[2024-01-08 00:16] LABS: Lactic Sepsis W/Reflex 1.8 mmol/L (0.5-2.2)
--- NOTE | 2024-01-08 00:25 | ED_ITS ---
HPI - Chest Pain 2 General: Chief Complaint: Chest Pain Stated Complaint: CP Time Seen by Provider: 01/07/24 23:14 History of Present Illness: 58-year-old woman with a history of elias re GERD who had a pH carlso put nasogastric lady in today. To measure her pH. She developed some severe pain this evening. She was supposed to not take her GERD medicines, eat a spicy food as she could, and lay down flat on her back. When she did this she developed very severe epigastric pain. On arrival here she was in severe pain and shortly after she arrived she threw up the tube and her pain has improved Review of Systems 2 Narrative: Constitutional symptoms: Negative except as documented in HPI. Skin symptoms: Negative except as documented in HPI. Eye symptoms: Negative except as documented in HPI. ENMT symptoms: Negative except as documented in HPI. Respiratory symptoms: Negative except as documented in HPI. Cardiovascular symptoms: Negative except as documented in HPI. Gastrointestinal symptoms: Negative except as documented in HPI. Genitourinary symptoms: Negative except as documented in HPI. Musculoskeletal symptoms: Negative except as documented in HPI. Neurologic symptoms: Negative except as documented in HPI. Psychiatric symptoms: Negative except as documented in HPI. Endocrine symptoms: Negative except as documented in HPI. PFSH ED 2 PFSH: Medical History Nicotine addiction CAD (coronary artery disease) (~12/2019) -Known history of CAD with recent stenting of LAD due to anterior wall STEMI in December -Follows up with Dr. Salcedo; f/u in [address] Bass Essential (primary) hypertension -VSS; continue to monitor -continue oral antihypertensives Hypomagnesemia Hypokalemia Encounter for chronic pain management Diastolic congestive heart failure Shortness of breath Severe persistent asthma Closed fracture distal radius and ulna Insomnia Hyperlipidemia Smokers' cough Acute exacerbation of CHF (congestive heart failure) Normocytic anemia -Seems to have intermittent normocytic anemia with a baseline hemoglobin of about 10-11, intermittently normal -Has been on dual antiplatelet therapy given recent stenting -Continue to monitor H&H closely; stable so far -iron and ferritin low; start on iron replacement Asthma -severe persistent, started xolair 02/04/2020 -follow up with Dr. West New onset of congestive heart failure -Could be secondary to recent STEMI requiring intervention with stenting of LAD last month -Echo: EF=57%, normal systolic and diastolic function, no RWMA, trace TR, trace IN -has been on IV diuresis with Lasix; switched to oral lasix -Continue to monitor electrolytes and renal function -Daily weights, monitor ins and outs -BNP elevated at 948 -Chest x-ray reported as unremarkable -Close monitoring of respiratory status, supplemental oxygen as needed Methadone maintenance therapy patient Acute anterior wall IL Chronic post-traumatic stress disorder Generalized anxiety disorder Major depressive disorder, recurrent severe without psychotic features Chronic radicular lumbar pain Herniated disc Sleep apnea, unspecified Lesion of ulnar nerve, bilateral COPD (chronic obstructive pulmonary disease) -no acute exacerbation -does not appear to be oxygen dependent at baseline -recently restarted smoking, 1/2 PPD KRISTOFER on CPAP GERD (gastroesophageal reflux disease) -on PPI Surgical History H/O oral surgery S/P section Presence of stent in LAD coronary artery (01/23/20) H/O bilateral oophorectomy History of cholecystectomy History of carpal tunnel release H/O skin graft Family History Father Myocardial infarct, Onset Age: 45 Brother Myocardial infarct, Onset Age: 53 Other CAD (coronary artery disease) Closed fracture distal radius and ulna Social History Smoking and tobacco/nicotine status: former use of tobacco/nicotine Quit status (tobacco/nicotine): has quit using Year quit tobacco: 2020 - 1PPD x 30 Years Second hand smoke exposure: Yes Alcohol intake: former Substance/Drug Use: never Lives independently: Yes Household members: family Marital status: Current occupational status: disabled Do you think of yourself as: Straight/Heterosexual Current gender identity: Female Physical Exam 2 Narrative: EXAM NARRATIVE: General: Alert, she is in some pain Skin: Warm, dry. Head: Normocephalic, atraumatic. Neck: Supple, trachea midline. Eye: Extraocular movements are intact. Ears, nose, mouth and throat: mucosa moist. NG tube is in place and attached to computer monitor Cardiovascular: Regular, Normal peripheral perfusion. Respiratory: Lungs are clear to auscultation, respirations are non-labored, breath sounds are equal, Symmetrical chest wall expansion. Gastrointestinal: Soft, Nontender, Non distended Musculoskeletal: Normal ROM, no deformity. Neurological: Alert and oriented, No focal neurological deficit observed. Psychiatric: Cooperative, appropriate mood & affect. Course 2 Vital Signs: Vital signs: Vital Signs Temperature 98.2 F 01/07/24 23:18 Pulse Rate 110 H 01/08/24 00:03 Respiratory Rate 16 01/08/24 00:03 Blood Pressure 127/97 01/08/24 00:03 Pulse Oximetry 89 L 01/08/24 00:03 Oxygen Delivery Me thod Nasal Cannula 01/08/24 00:03 Oxygen Flow Rate 2 01/08/24 00:03 MDM - Chest Pain Medical Decision Making Acute abdominal series: chest x-ray: No acute process. No obvious infiltrates. No pneumothorax. No cardiomegaly. This was reviewed and interpreted by myself the emergency room physician Abdomen x-ray: Nonspecific bowel gas pattern. No evidence of free air or obstruction. This was reviewed and interpreted by myself the emergency room physician. Lab work was fairly unremarkable. Bit of a white count of 15,000. BUN and creatinine are normal. Assessment and plan: Abdominal pain -Pepcid IV, Zofran, and Dilaudid. - Discharged home - Discussed plan with patient. Answered any questions. - Evaluation and treatment of this problem were appropriate in the emergency setting. Lab Data 01/07/24 23:24 01/07/24 23:24 Laboratory Results WBC 15.35 10^3/uL (3.29-11.43) H 01/07/24 23: RBC 4.87 10^6/uL (3.85-5.65) 01/07/24 23: Hgb 14.40 g/dL (11.27-16.99) 01/07/24 23:24 Hct 43.4 % (36-47) 01/07/24 23: MCV 89.1 fl (85-98) 01/07/24 23: MCH 29.6 pg (27-33) 01/07/24 23: MCHC 33.2 g/dL (30-55) 01/07/24 23: RDW 15.4 % (12.1-15.1) H 01/07/24 23:24 Plt Count 375 10^3/cmm (157-399) 01/07/24 23:24 MPV 10.9 fL (7.4-10.4) H 01/07/24 23:24 Neut % (Auto) 61.1 % 01/07/24 23:24 Lymph % (Auto) 28.8 % 01/07/24 23:24 Long % (Auto) 8.0 % 01/07/24 23:24 Eos % (Auto) 0.8 % 01/07/24 23:24 Baso % (Auto) 0.5 % 01/07/24 23:24 Neut # (Auto) 9.37 10^3/uL (1.8-7.7) H 01/07/24 23:24 Lymph # (Auto) 4.4 10^3/uL (0.8-4.8) 01/07/24 23:24 Long # (Auto) 1.2 10^3/uL (0.2-0.9) H 01/07/24 23:24 Eos # (Auto) 0.1 10^3/uL (0.0-0.8) 01/07/24 23:24 Baso # (Auto) 0.1 10^3/uL (0.0-0.1) 01/07/24 23:24 Nucleated RBC % (auto) 0 % 01/07/24 23: Nucleated RBCs # 0.0 /100WBC 01/07/24 23:24 Sodium 143 mmol/L (136-145) 01/07/24 23:24 Potassium 3.8 mmol/L (3.5-5.1) 01/07/24 23:24 Chloride 99 mmol/L (98-107) 01/07/24 23:24 Carbon Dioxide 31 mmol/L (22-29) H 01/07/24 23:24 Anion Gap 16.8 (5-19) 01/07/24 23:24 BUN 20 mg/dL (6-20) 01/07/24 23:24 Creatinine 0.7 mg/dL (0.5-0.9) 01/07/24 23:24 GFR Calculation 85.9 mL/min (90-130) L 01/07/24 23:24 Glucose 118 mg/dL (65-115) H 01/07/24 23:24 Calculated Osmolality 300 mOsm/kg (285-295) H 01/07/24 23:24 Lactic Acid 1.8 mmol/L (0.5-2.2) 01/07/24 23:24 Calcium 10.4 mg/dL (8.5-10.5) 01/07/24 23:24 Total Bilirubin 0.4 mg/dL (0.15-1.2) 01/07/24 23:24 AST 9 U/L (0-32) 01/07/24 23:24 ALT 8 U/L (0-33) 01/07/24 23:24 Alkaline Phosphatase 126 U/L (35-105) H 01/07/24 23:24 Troponin T Baseline 7 ng/L (0-10) 01/07/24 23:24 C-Reactive Protein 7.0 mg/L (0.0-4.9) H 01/07/24 23:24 Total Protein 6.8 g/dL (6.6-8.7) 01/07/24 23:24 Albumin 4.2 g/dL (3.5-5.2) 01/07/24 23:24 Globulin 2.6 g/dL (1.3-4.6) 01/07/24 23:24 All radiology interpretation(s) finalized by discharge Discharge Plan Discharge Patient Disposition: Home Clinical Impression: Abdominal pain Condition: Stable Prescriptions: No Action nitroglycerin 0.4 mg tablet, sublingual 0.4 mg SUBLINGUAL Q5M PRN (Reason: chest pain) Qty: 25 6RF Rx Instructions: do not exceed 3 doses per episode cetirizine [Zyrtec] 10 mg tablet 10 mg PO QAM ipratropium-albuterol 0.5 mg-3 mg(2.5 mg base)/3 mL solution for nebulization 3 ml inhalation Q4H PRN (Reason: wheezing) Qty: 180 6RF azelastine 137 mcg (0.1 %) aerosol,spray 1 spray INTRANASAL BID@0700,2200 30 Days Qty: 30 4RF epinephrine [EpiPen Jr 2-Guille] 0.15 mg/0.3 mL auto-injector 0.15 mg IM Q30M PRN (Reason: anaphylaxis) Qty: 2 1RF (DME) Cockup Splint See Rx Instructions .Route .MEDSUPPLY Qty: 1 0RF Rx Instructions: As directed Flonase Allergy Relief 50 mcg/actuation spray,suspension 1 spray INTRANASAL BID@ Qty: 15.8 3RF Perforomist 20 mcg/2 mL solution for nebulization See Rx Instructions .ROUTE .COMPLEX Qty: 60 11RF Dose Instruction: USE 1 VIAL IN NEBULIZER EVERY 12 HOURS - Morning and Evening Rx Instructions: USE 1 VIAL IN NEBULIZER EVERY 12 HOURS - Morning and Evening Yupelri 175 mcg/3 mL solution for nebulization See Rx Instructions .ROUTE .COMPLEX Qty: 30 11RF Dose Instruction: USE 1 VIAL IN NEBULIZER DAILY - DO NOT MIX WITH OTHER NEB MEDS, USE BEFORE OR AFTER Rx Instructions: USE 1 VIAL IN NEBULIZER DAILY - DO NOT MIX WITH OTHER NEB MEDS, USE BEFORE OR AFTER atorvastatin 80 mg tablet 80 mg PO DAILY Qty: 90 1RF clopidogrel 75 mg tablet 75 mg PO DAILY@07 Qty: 90 1RF losartan 25 mg tablet 25 mg PO DAILY Qty: 90 1RF pantoprazole 40 mg tablet,delayed release (DR/EC) 40 mg PO BID Qty: 90 2RF Singulair 10 mg tablet 10 mg PO DAILY Qty: 90 1RF ezetimibe 10 mg tablet 10 mg PO DAILY Qty: 90 3RF metoprolol succinate 25 mg tablet extended release 24 hr 25 mg PO DAILY@0730 Qty: 90 1RF Xolair 150 mg/mL syringe 300 mg SUBCUT Q14D Qty: 2 12RF budesonide 0.5 mg/2 mL Suspension For Nebulization 0.5 mg inhalation BID PRN (Reason: Shortness Of Breath) fluoxetine 40 mg capsule 40 mg PO QAM trazodone 50 mg tablet 50 mg PO BEDTIME PRN (Reason: Sleep) Breztri Aerosphere 160-9-4.8 mcg/actuation HFA aerosol inhaler 2 inh INHALATION BID potassium chloride 20 mEq tablet,ER particles/crystals 40 meq PO QAM furosemide 40 mg tablet 40 mg PO EVERY OTHER DAY prednisone 5 mg tablet 5 mg PO EVERY OTHER DAY Hold Instructions: start after finishing medrol dose pack mirtazapine 7.5 mg tablet 7.5 mg PO DAILY Discharge Orders: Discharge ED (Routine); Ordered 01/08/24 Ordered By: Jane Tang Referrals: Lauri Krishnan MD [Primary Care Provider] - Discharge Diet: As Directed Discharge Activity: Increase activity as tolerated Patient Instructions: Abdominal Pain (ED), Opioid Safety, Pain Management Activity Restrictions/Additional Instructions: Thank you for choosing [facility] for your healthcare needs today. Please realize this is an emergency room and that we are providing you with a medical screening exam and this may not be complete and all inclusive of all the testing and or work up that you may need to determine your ailment or severity of your illness. You have been screened and evaluated and felt safe for discharge. Health conditions do change or evolve sometimes and as such it is important that you follow up with your Primary Doctor to be re checked, 3-5 days is a general good time frame for follow up. 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
[2024-01-08 00:48] VITALS: BP 127/97; PULSE 78; RESP 16; TEMP 36.8; O2SAT 91
== END 2024-01-08 00:51 | disposition home or self-care (01) ==
PROVIDERS: Emergency Provider Emergency Medicine; PCP Family Medicine
DX: R10.13 Epigastric pain
CPT/HCPCS: 74022; 80053; 83605; 84484; 85025; 86140; 93005; 96374; 96375; 99285; J1170; J2405; J3490

== ENCOUNTER → 2024-01-17 10:00 | Outpatient (BNVA) | payer MEDICARE, MEDICAID, SELFPAY | PROVIDERS: PCP Family Medicine; Visit Provider Internal Medicine Cardiovascular Disease | DX: R00.0 Tachycardia, unspecified (principal); I25.119 Atherosclerotic heart disease of native coronary artery with unspecified angina pectoris; Z95.5 Presence of coronary angioplasty implant and graft; E78.2 Mixed hyperlipidemia; F17.200 Nicotine dependence, unspecified, uncomplicated; I11.0 Hypertensive heart disease with heart failure; I50.30 Unspecified diastolic (congestive) heart failure; J96.12 Chronic respiratory failure with hypercapnia; J43.9 Emphysema, unspecified | CPT/HCPCS: 99213 ==

== ENCOUNTER 2024-05-09 16:16 | Inpatient (IN) | payer MEDICARE, MEDICAID, SELFPAY ==
[2024-05-09] VITALS (11 sets, daily range): BP systolic 99–144; BP diastolic 56–74; PULSE 78–103; RESP 15–26; TEMP 36.5–36.9; O2SAT 92–97
--- NOTE | 2024-05-09 16:18 | ECG_ITS ---
[facility]09 Pat Name: Nhung Leone Department: Room: Gender: Female It Training Specialist: : [id number] Requested By: Aj Crockett Order Number: [id number] Apoorva MD: Piedad Estrada M.D. Measurements Intervals [place] Rate: 82 P: 70 [place]: 170 QRS: 84 QRSD: 94 T: 81 QT: 387 QTc: 454 Interpretive Statements SINUS RHYTHM MODERATE ST DEPRESSION Compared to ECG 01/07/2024 23:16:35 ST (T wave) deviation now present Sinus tachycardia no longer present Ventricular premature complex(es) no longer present Electronically Signed On 05-10-2024 14:13:34 ADDRESSER by Piedad Estrada M.D. [email or web address]
--- NOTE | 2024-05-09 16:23 | XRR_ITS ---
PROCEDURE INFORMATION: Exam: XR Chest Exam date and time: 05/09/2024 4:34 PM Age: 58 years old Clinical indication: Cough and dyspnea; Prior surgery; Surgery date: 6+ months; Surgery type: Cardiac stent; Patient HX: SOB; Chest tightness; Dyspnea; Copd TECHNIQUE: Imaging protocol: Radiologic exam of the chest. Views: 1 view. COMPARISON: 1. CT chest wo con [id number] 08/02/2023 2:19 PM 2. CR XR chest 1V portable [id number] 07/31/2023 7:36 PM FINDINGS: Lungs: Pulmonary hyperexpansion. No acute pulmonary pathology. Pleural spaces: No pleural effusion or pneumothorax. Heart/Mediastinum: Unremarkable. Bones/joints: Marked degenerative change of the left glenohumeral joint. XR/XR chest 1V portable [id number] IMPRESSION: No acute pathology or significant interval change.
--- NOTE | 2024-05-09 16:27 | W.ED.SOB ---
HPI - SOB/Dyspnea General: Chief Complaint: Shortness of Breath/Dyspnea Stated Complaint: sob, chest tightness Time Seen by Provider: 05/09/24 16:27 History of Present Illness: HPI Narrative: 58-year-old female presents emergency room complaining of shortness of breath feels like she is struggling to breathe. She said has been progressively worsening for the last week. She has history of COPD history of coronary artery disease with a previous stent. She is also been out of her Lasix for the last 3 days. Associated symptoms: Reports chest pain; Deny abdominal pain or fever(s) Related Data Home Medications Medication Instructions Recorded Confirmed cetirizine 10 mg tablet (Zyrtec) 10 mg PO QAM 01/03/23 05/09/24 budesonide 0.5 mg/2 mL suspension 0.5 mg inhalation BID PRN 01/04/23 05/09/24 for nebulization Shortness Of Breath budesonide 160 mcg-glycopyr 9 2 inh inhalation BID 01/04/23 05/09/24 mcg-formot 4.8 mcg/actuation HFA inhaler (Breztri Aerosphere) fluoxetine 40 mg capsule 40 mg PO QAM 01/04/23 05/09/24 potassium chloride 20 mEq 40 meq PO QAM 01/04/23 05/09/24 tablet,extended release(part/cryst) trazodone 50 mg tablet 50 mg PO BEDTIME PRN Sleep 01/04/23 05/09/24 furosemide 40 mg tablet 40 mg PO EVERY OTHER DAY 07/26/23 05/09/24 azelastine 137 mcg (0.1 %) nasal 1 spray intranasal BID@0700,2200 05/09/24 05/09/24 spray PRN Allergy Symptoms Previous Rx's Medication Instructions Recorded fluticasone propionate 50 1 spray intranasal BID@ #15.8 10/09/21 mcg/actuation nasal mL spray,suspension (Flonase Allergy Relief) formoterol fumarate 20 mcg/2 mL See Rx Instructions .Route 01/24/22 solution for nebulization .COMPLEX #60 vials (Perforomist) revefenacin 175 mcg/3 mL solution See Rx Instructions .Route 01/24/22 for nebulization (Yupelri) .COMPLEX #30 vials epinephrine 0.15 mg/0.3 mL 0.15 mg (0.3 mL) IM Q30M PRN 06/19/22 injection,auto-injector (EpiPen Jr anaphylaxis #2 ea 2-Guille) nitroglycerin 0.4 mg sublingual 0.4 mg sublingual Q5M PRN chest 06/21/22 tablet pain #25 tabs pantoprazole 40 mg tablet,delayed 40 mg PO BID #90 tabs 08/13/22 release montelukast 10 mg tablet 10 mg PO DAILY #90 tabs 08/31/22 (Singulair) ipratropium 0.5 mg-albuterol 3 mg 3 ml inhalation Q4H PRN wheezing 07/18/23 (2.5 mg base)/3 mL nebulization #180 mL soln omalizumab 150 mg/mL subcutaneous 300 mg (2 mL) SUBCUT Q14D #2 mL 12/24/23 syringe (Xolair) atorvastatin 80 mg tablet 80 mg PO DAILY #90 tabs 01/17/24 Allergies Allergy/AdvReac Type Severity Reaction Status Date / Time doxycycline Allergy Intermediate ALGY-Hives Verified 05/09/24 16:24 Iodinated Contrast Media Allergy Intermediate ALGY-Hives Verified 05/09/24 16:24 codeine Allergy Unknown Unknown Verified 05/09/24 16:24 Sulfa (Sulfonamide Allergy Unknown Unknown Verified 05/09/24 16:24 Antibiotics) gabapentin Allergy Unknown Verified 05/09/24 16:24 Review of Systems Const: Denies: fever(s) or chills Card: Reports: chest pain Resp: Reports: dyspnea GI: Denies: abdominal pain : Denies: dysuria, urinary frequency or urinary urgency Musc: Denies: neck pain or back pain Skin/Breast: Denies: rash PFSH ED PFSH: Medical History Nicotine addiction CAD (coronary artery disease) (~12/2019) -Known history of CAD with recent stenting of LAD due to anterior wall STEMI in December -Follows up with Dr. Salcedo; f/u in [address] Bass Essential (primary) hypertension -VSS; continue to monitor -continue oral antihypertensives Hypomagnesemia Hypokalemia Encounter for chronic pain management Diastolic congestive heart failure Shortness of breath Severe persistent asthma Closed fracture distal radius and ulna Insomnia Hyperlipidemia Smokers' cough Acute exacerbation of CHF (congestive heart failure) Normocytic anemia -Seems to have intermittent normocytic anemia with a baseline hemoglobin of about 10-11, intermittently normal -Has been on dual antiplatelet therapy given recent stenting -Continue to monitor H&H closely; stable so far -iron and ferritin low; start on iron replacement Asthma -severe persistent, started xolair 02/04/2020 -follow up with Dr. West New onset of congestive heart failure -Could be secondary to recent STEMI requiring intervention with stenting of LAD last month -Echo: EF=57%, normal systolic and diastolic function, no RWMA, trace TR, trace GA -has been on IV diuresis with Lasix; switched to oral lasix -Continue to monitor electrolytes and renal function -Daily weights, monitor ins and outs -BNP elevated at 948 -Chest x-ray reported as unremarkable -Close monitoring of respiratory status, supplemental oxygen as needed Methadone maintenance therapy patient Acute anterior wall [place] Chronic post-traumatic stress disorder Generalized anxiety disorder Major depressive disorder, recurrent severe without psychotic features Chronic radicular lumbar pain Herniated disc Sleep apnea, unspecified Lesion of ulnar nerve, bilateral COPD (chronic obstructive pulmonary disease) -no acute exacerbation -does not appear to be oxygen dependent at baseline -recently restarted smoking, 1/2 PPD KRISTOFER on CPAP GERD (gastroesophageal reflux disease) -on PPI Surgical History H/O oral surgery S/P section Presence of stent in LAD coronary artery (01/23/20) H/O bilateral oophorectomy History of cholecystectomy History of carpal tunnel release H/O skin graft Family History Father Myocardial infarct, Onset Age: 45 Brother Myocardial infarct, Onset Age: 53 Other CAD (coronary artery disease) Closed fracture distal radius and ulna Social History Smoking and tobacco/nicotine status: current every day tobacco/nicotine user Quit status (tobacco/nicotine): has quit using Year quit tobacco: 2019 - 1PPD x 30 Years Second hand smoke exposure: Yes Alcohol intake: former Substance/Drug Use: never Lives independently: Yes Household members: family Marital status: Current occupational status: disabled Do you think of yourself as: Straight/Heterosexual Current gender identity: Female Physical Exam Const: GENERAL APPEARANCE: cooperative ORIENTATION/CONSCIOUSNESS: Yes awake, Yes oriented to person, Yes oriented to place and Yes oriented to time HENMT: COMMON NORMALS: normocephalic, atraumatic and hearing grossly normal bilaterally HEAD & SCALP: normocephalic and atraumatic Resp: COMMON NORMALS: normal respiratory effort, No retractions, No use of accessory muscles and clear to auscultation bilaterally AUSCULTATION: clear to auscultation bilaterally Cardio: COMMON NORMALS: regular rate, regular rhythm and No murmurs present (Cardio) RATE: regular rate RHYTHM: regular rhythm GI: COMMON NORMALS: Soft to palpation and No hepatosplenomegaly present AUSCULTATION: Yes normoactive bowel sounds PALPATION: Yes Soft to palpation, No Tenderness to palpation present (GI), No Guarding due to palpation present (GI) and Yes No hepatosplenomegaly present Extremity: COMMON NORMALS: normal to inspection, capillary refill normal, no clubbing, cyanosis or edema, no calf tenderness and no pedal edema Neuro: SENSORIUM/ORIENTATION: Yes oriented to person, Yes oriented to place and Yes oriented to time Skin: COMMON NORMALS: no rashes or lesions noted GENERAL SKIN EXAM: no rashes or lesions noted Course Vital Signs: Vital signs: Vital Signs Temperature 97.9 F 05/11/24 03:34 Pulse Rate 98 05/11/24 06:00 Respiratory Rate 17 05/11/24 03:34 Blood Pressure 124/73 05/11/24 03:34 Pulse Oximetry 97 05/11/24 03:34 Oxygen Delivery Me thod Nasal Cannula 05/11/24 03:34 Oxygen Flow Rate 2 05/11/24 03:34 Fraction of Inspir ed Oxygen 21 05/09/24 20:07 MDM - SOB/Dyspnea Medical Decision Making Labs and imaging reviewed acute exacerbation COPD and CHF will admit discussed with hospitalist orders written. Discussed with family. Medical Records I reviewed the patient's medical records. Lab Data I reviewed the patient's lab results. 05/11/24 04:20 05/11/24 04:20 Labs/Radiology: Radiology Impressions Chest X-Ray 05/09/24 16:23 IMPRESSION: No acute pathology or significant interval change. Laboratory Results WBC 11.33 10^3/uL (3.29-11.43) 05/09/24 16: RBC 4.11 10^6/uL (3.85-5.65) 05/09/24 16:31 Hgb 12.00 g/dL (11.27-16.99) 05/09/24 16:31 Hct 37.8 % (36-47) 05/09/24 16:31 MCV 92.0 fl (85-98) 05/09/24 16:31 MCH 29.2 pg (27-33) 05/09/24 16: MCHC 31.7 g/dL (30-55) 05/09/24 16: RDW 14.1 % (12.1-15.1) 05/09/24 16:31 Plt Count 431 10^3/cmm (157-399) H 05/09/24 16:31 MPV 9.6 fL (7.4-10.4) 05/09/24 16:31 Neut % (Auto) 67.4 % 05/09/24 16:31 Lymph % (Auto) 24.1 % 05/09/24 16:31 [place] % (Auto) 5.5 % 05/09/24 16:31 Eos % (Auto) 1.9 % 05/09/24 16:31 Baso % (Auto) 0.6 % 05/09/24 16:31 Neut # (Auto) 7.63 10^3/uL (1.8-7.7) 05/09/24 16:31 Lymph # (Auto) 2.7 10^3/uL (0.8-4.8) 05/09/24 16:31 [place] # (Auto) 0.6 10^3/uL (0.2-0.9) 05/09/24 16: Eos # (Auto) 0.2 10^3/uL (0.0-0.8) 05/09/24 16:31 Baso # (Auto) 0.1 10^3/uL (0.0-0.1) 05/09/24 16:31 Nucleated RBC % (auto) 0 % 05/09/24 16: Nucleated RBCs # 0.0 /100WBC 05/09/24 16:31 Specimen Type Arterial 05/09/24 16:45 Sample Site Radial, right 05/09/24 16:45 ABG pH 7.46 (7.35-7.45) H 05/09/24 16:45 ABG pCO2 35.2 mmHg (35-45) 05/09/24 16:45 ABG pO2 78.5 mmHg (80.0-100.0) L 05/09/24 16:45 ABG PO2/FiO2 Ratio 373 05/09/24 16:45 ABG HCO3 25.2 mmol/L (22-26) 05/09/24 16:45 ABG O2 Saturation 97.4 05/09/24 16:45 ABG Base Excess 1.6 mmol/L (-2.0-2.0) 05/09/24 16:45 Alfredo Test Pos 05/09/24 16:45 A-a O2 Gradient 3.4 mmHg (5-10) L 05/09/24 16:45 Hematocrit 34.8 % (37-47) L 05/09/24 16:45 Hgb O2 Saturation 91.9 % (95-100) L 05/09/24 16:45 Carboxyhemoglobin 4.5 %THgb (0.4-20.1) 05/09/24 16:45 Methemoglobin 1.2 % (0.4-1.5) 05/09/24 16:45 Total Hemoglobin 11.4 g/dL (12-16) L 05/09/24 16:45 Sodium 144.0 mmol/L (131-143) H 05/09/24 16:45 Potassium 2.8 mmol/L (3.5-5.0) L 05/09/24 16:45 Glucose 124.0 mg/dL (70-115) H 05/09/24 16:45 Ionized Calcium 1.2 mmol/L (1.1-1.4) 05/09/24 16:45 O2 Delivery Device Room air 05/09/24 16:45 FiO2 21.0 % 05/09/24 16:45 Director Of Program Management ID Broma 05/09/24 16:45 Sodium 143 mmol/L (136-145) 05/09/24 16:31 Potassium 3.1 mmol/L (3.5-5.1) L 05/09/24 16:31 Chloride 107 mmol/L (98-107) 05/09/24 16:31 Carbon Dioxide 26 mmol/L (22-29) 05/09/24 16:31 Anion Gap 13.1 (5-19) 05/09/24 16:31 BUN 8 mg/dL (6-20) 05/09/24 16:31 Creatinine 0.7 mg/dL (0.5-0.9) 05/09/24 16:31 GFR Calculation 85.9 mL/min (90-130) L 05/09/24 16:31 Glucose 115 mg/dL (65-115) 05/09/24 16:31 Calculated Osmolality 295 mOsm/kg (285-295) 05/09/24 16:31 Calcium 8.5 mg/dL (8.5-10.5) 05/09/24 16:31 Total Bilirubin 0.2 mg/dL (0.15-1.2) 05/09/24 16:31 AST 10 U/L (0-32) 05/09/24 16:31 ALT 9 U/L (0-33) 05/09/24 16:31 Alkaline Phosphatase 159 U/L (35-105) H 05/09/24 16:31 Troponin T Baseline < 6 ng/L (0-10) 05/09/24 16:31 NT-Pro-B Natriuret Pep 3033 pg/mL (0-125) H 05/09/24 16:31 Total Protein 5.6 g/dL (6.6-8.7) L 05/09/24 16:31 Albumin 3.9 g/dL (3.5-5.2) 05/09/24 16:31 Globulin 1.7 g/dL (1.3-4.6) 05/09/24 16:31 Coronavirus (PCR) Negative (Negative) 05/09/24 17:09 Influenza A (PCR) Negative (Negative) 05/09/24 17:09 Influenza Type B (PCR) Negative (Negative) 05/09/24 17:09 RSV (PCR) Negative (Negative) 05/09/24 17:09 All radiology interpretation(s) finalized by discharge Discharge Plan Discharge Patient Disposition: Admitted As Inpatient Admit Provider: Jose Chavez Clinical Impression: Acute exacerbation of chronic obstructive airways disease Acute exacerbation of CHF (congestive heart failure) Qualifiers: Heart failure type: systolic Qualified Code(s): I50.23 - Acute on chronic systolic (congestive) heart failure Condition: Stable Coding Level of Care Code ED Financial Processing Clerk for Gracie Laguna
[2024-05-09 16:38] LABS: Basophils # 0.1 10^3/uL (0.0-0.1); Basophils % 0.6 %; Eosinophils # 0.2 10^3/uL (0.0-0.8); Eosinophils % 1.9 %; Hematocrit 37.8 % (36-47); Lymphocytes # 2.7 10^3/uL (0.8-4.8); Lymphocytes % 24.1 %; Mean Corpuscular HGB Conc 31.7 g/dL (30-55); Mean Corpuscular Hemoglobin 29.2 pg (27-33); Mean Platelet Volume 9.6 fL (7.4-10.4); Monocytes # 0.6 10^3/uL (0.2-0.9); Monocytes % 5.5 %; Neutrophils # 7.63 10^3/uL (1.8-7.7); Neutrophils % 67.4 %; Nucleated Red Blood Cells % 0 %; Platelet Count 431 10^3/cmm (157-399); Red Blood Count 4.11 10^6/uL (3.85-5.65); Red Cell Distribution Width 14.1 % (12.1-15.1); White Blood Count 11.33 10^3/uL (3.29-11.43)
[2024-05-09 16:54] LABS: Troponin(5th) Baseline < 6 ng/L (0-10)
[2024-05-09 16:55] LABS: Alanine Aminotransferase 9 U/L (0-33); Albumin Level 3.9 g/dL (3.5-5.2); Alkaline Phosphatase 159 U/L (35-105); Anion Gap 13.1 (5-19); Aspartate Amino Transferase 10 U/L (0-32); Blood Urea Nitrogen 8 mg/dL (6-20); Calcium 8.5 mg/dL (8.5-10.5); Carbon Dioxide 26 mmol/L (22-29); Chloride 107 mmol/L (98-107); Creatinine Clr Calc Pharmacy 86.7892; Globulin 1.7 g/dL (1.3-4.6); Glomerular Filtration Rate 85.9 mL/min (90-130); Glucose 115 mg/dL (65-115); Osmolality Calculated 295 mOsm/kg (285-295); Potassium 3.1 mmol/L (3.5-5.1); Sodium 143 mmol/L (136-145); Total Bilirubin 0.2 mg/dL (0.15-1.2); Total Protein 5.6 g/dL (6.6-8.7)
[2024-05-09 16:57] LABS: ABG PCO2 35.2 mmHg (35-45); ABG PH Result 7.46 (7.35-7.45); Alveolar-Arterial Oxygen Gradi 3.4 mmHg (5-10); Arterial Blood Gas Hematocrit 34.8 % (37-47); Base Excess ABG 1.6 mmol/L (-2.0-2.0); Blood Gas Allen Test Pos; Blood Gas Operator Identificat BROMA; Blood Gas Sample Site Radial, right; Blood Gas Sample Type Arterial; Carboxyhemoglobin 4.5 %THgb (0.4-20.1); HCO3 ABG 25.2 mmol/L (22-26); HGB O2 Sat 91.9 % (95-100); Ionized Calcium Level - ABG 1.2 mmol/L (1.1-1.4); Methemoglobin 1.2 % (0.4-1.5); Oxygen Device ROOM AIR; Oxygen Saturation ABG 97.4; PO2 ABG 78.5 mmHg (80.0-100.0); PO2 FiO2 Ratio Arterial Blood 373; Potassium Level - ABG 2.8 mmol/L (3.5-5.0); Total Hemoglobin 11.4 g/dL (12-16)
[2024-05-09] MEDS: FUROsemide 10 mg/mL SDV 4mL 40 MG IVP (16:58)
[2024-05-09] MEDS: dexamethasone 10 mg/mL INJ IM (16:58)
[2024-05-09] MEDS: ipratropium-albuterol 3 mL Neb INHALATION ×2 (16:59→20:04)
[2024-05-09] MEDS: aspirin 81 mg Chew Tablet 324 MG PO (17:02)
[2024-05-09 17:18] LABS: NT Pro B Type Natriuretic Pept 3033 pg/mL (0-125)
[2024-05-09 17:51] LABS: Covid PCR NEGATIVE (Negative); Influenza A NEGATIVE (Negative); Influenza B NEGATIVE (Negative); Respiratory Syncytial Virus Ce NEGATIVE (Negative)
--- NOTE | 2024-05-09 18:40 | ECG_ITS ---
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 Measurements Intervals [place] Rate: 81 P: 67 [place]: 149 QRS: 84 QRSD: 87 T: 78 QT: 415 QTc: 483 Interpretive Statements SINUS RHYTHM WITH SINUS ARRHYTHMIA MINIMAL ST DEPRESSION [0.025+ mV ST DEPRESSION] Compared to ECG 05/09/2024 16:18:27 No significant changes Electronically Signed On 05-10-2024 14:15:41 TOOL CHASER by Piedad Estrada M.D. [email or web address]
[2024-05-09 18:44] LABS: Troponin 5 2HR Delta 0.00001 ABS# (0-10)
--- NOTE | 2024-05-09 18:45 | P.HP_ITS ---
Providers/Chief Complaint 2 Admitting Physician: Jose Chavez Primary Care Provider: Lauri Krishnan MD Chief Complaint: sob, chest tightness History of Present Illness Nhung Leone is a 58 year old female presented to ER due to shortness of breath, wheezing, dyspnea on exertion, chest/breathing feels tight . She is having some minor dry cough, no phlegm production. Has not had any fever. Review loose stools. In ER he is found to have significant wheezing on exam, sinus tachycardia 103, cough, tachypnea 26. Review of Systems 2 Const: Denies: fever(s), chills, body aches or malaise Card: Reports: edema and dyspnea on exertion; Denies: chest pain or pre-syncope Resp: Reports: dyspnea, non-productive cough, wheezing and other (Chest tightness); Denies: productive cough, change in phlegm color or hemoptysis GI: Denies: abdominal pain, nausea, vomiting, diarrhea, constipation, hematochezia or melena : Denies: flank pain, urinary frequency or hematuria Musc: Denies: back pain, joint swelling or joint redness Medications/Allergies Home Medications Medication Instructions Recorded Confirmed Last Taken Type fluticasone propionate 50 1 spray intranasal BID@ #15.8 10/09/21 01/17/24 07/31/23 Rx mcg/actuation nasal mL spray,suspension (Flonase Allergy Relief) formoterol fumarate 20 mcg/2 mL See Rx Instructions .Route 01/24/22 01/17/24 09/16/23 Rx solution for nebulization .COMPLEX #60 vials (Perforomist) revefenacin 175 mcg/3 mL solution See Rx Instructions .Route 01/24/22 01/17/24 07/31/23 Rx for nebulization (Yupelri) .COMPLEX #30 vials azelastine 137 mcg (0.1 %) nasal 1 spray intranasal BID@0700,2200 02/13/22 01/17/24 09/17/23 Rx spray 30 days #30 mL epinephrine 0.15 mg/0.3 mL 0.15 mg (0.3 mL) IM Q30M PRN 06/19/22 01/17/24 09/16/23 Rx injection,auto-injector (EpiPen Jr anaphylaxis #2 ea 2-Guille) nitroglycerin 0.4 mg sublingual 0.4 mg sublingual Q5M PRN chest 06/21/22 01/17/24 Unknown Rx tablet pain #25 tabs pantoprazole 40 mg tablet,delayed 40 mg PO BID #90 tabs 08/13/22 01/17/24 09/17/23 Rx release montelukast 10 mg tablet 10 mg PO DAILY #90 tabs 08/31/22 01/17/24 07/31/23 Rx (Singulair) Cockup Splint #1 ea 10/30/22 10/01/23 09/16/23 Rx cetirizine 10 mg tablet (Zyrtec) 10 mg PO QAM 01/03/23 01/17/24 07/31/23 History budesonide 0.5 mg/2 mL suspension 0.5 mg inhalation BID PRN 01/04/23 01/17/24 09/18/23 History for nebulization Shortness Of Breath budesonide 160 mcg-glycopyr 9 2 inh inhalation BID 01/04/23 01/17/24 09/16/23 History mcg-formot 4.8 mcg/actuation HFA inhaler (Breztri Aerosphere) fluoxetine 40 mg capsule 40 mg PO QAM 01/04/23 01/17/24 09/17/23 History potassium chloride 20 mEq 40 meq PO QAM 01/04/23 01/17/24 07/31/23 History tablet,extended release(part/cryst) trazodone 50 mg tablet 50 mg PO BEDTIME PRN Sleep 01/04/23 01/17/24 Unknown History ipratropium 0.5 mg-albuterol 3 mg 3 ml inhalation Q4H PRN wheezing 07/18/23 01/17/24 09/16/23 Rx (2.5 mg base)/3 mL nebulization #180 mL soln furosemide 40 mg tablet 40 mg PO EVERY OTHER DAY 07/26/23 01/17/24 09/17/23 History omalizumab 150 mg/mL subcutaneous 300 mg (2 mL) SUBCUT Q14D #2 mL 12/24/23 01/17/24 Unknown Rx syringe (Xolair) atorvastatin 80 mg tablet 80 mg PO DAILY #90 tabs 01/17/24 01/17/24 Unknown Rx Allergies Allergy/AdvReac Type Severity Reaction Status Date / Time doxycycline Allergy Intermediate ALGY-Hives Verified 05/09/24 16:24 Iodinated Contrast Media Allergy Intermediate ALGY-Hives Verified 05/09/24 16:24 codeine Allergy Unknown Unknown Verified 05/09/24 16:24 Sulfa (Sulfonamide Allergy Unknown Unknown Verified 05/09/24 16:24 Antibiotics) gabapentin Allergy Unknown Verified 05/09/24 16:24 PFSH Acute 2 PFSH: Medical History Nicotine addiction CAD (coronary artery disease) (~12/2019) -Known history of CAD with recent stenting of LAD due to anterior wall STEMI in December -Follows up with Dr. Salcedo; f/u in [address] Bass Essential (primary) hypertension -VSS; continue to monitor -continue oral antihypertensives Hypomagnesemia Hypokalemia Encounter for chronic pain management Diastolic congestive heart failure Shortness of breath Severe persistent asthma Closed fracture distal radius and ulna Insomnia Hyperlipidemia Smokers' cough Acute exacerbation of CHF (congestive heart failure) Normocytic anemia -Seems to have intermittent normocytic anemia with a baseline hemoglobin of about 10-11, intermittently normal -Has been on dual antiplatelet therapy given recent stenting -Continue to monitor H&H closely; stable so far -iron and ferritin low; start on iron replacement Asthma -severe persistent, started xolair 02/04/2020 -follow up with Dr. West New onset of congestive heart failure -Could be secondary to recent STEMI requiring intervention with stenting of LAD last month -Echo: EF=57%, normal systolic and diastolic function, no RWMA, trace TR, trace DC -has been on IV diuresis with Lasix; switched to oral lasix -Continue to monitor electrolytes and renal function -Daily weights, monitor ins and outs -BNP elevated at 948 -Chest x-ray reported as unremarkable -Close monitoring of respiratory status, supplemental oxygen as needed Methadone maintenance therapy patient Acute anterior wall [place] Chronic post-traumatic stress disorder Generalized anxiety disorder Major depressive disorder, recurrent severe without psychotic features Chronic radicular lumbar pain Herniated disc Sleep apnea, unspecified Lesion of ulnar nerve, bilateral COPD (chronic obstructive pulmonary disease) -no acute exacerbation -does not appear to be oxygen dependent at baseline -recently restarted smoking, 1/2 PPD KRISTOFER on CPAP GERD (gastroesophageal reflux disease) -on PPI Surgical History H/O oral surgery S/P section Presence of stent in LAD coronary artery (01/23/20) H/O bilateral oophorectomy History of cholecystectomy History of carpal tunnel release H/O skin graft Family History Father Myocardial infarct, Onset Age: 45 Brother Myocardial infarct, Onset Age: 53 Other CAD (coronary artery disease) Closed fracture distal radius and ulna Social History Smoking and tobacco/nicotine status: current every day tobacco/nicotine user Quit status (tobacco/nicotine): has quit using Year quit tobacco: 2020 - 1PPD x 30 Years Second hand smoke exposure: Yes Alcohol intake: former Substance/Drug Use: never Lives independently: Yes Household members: family Marital status: Current occupational status: disabled Do you think of yourself as: Straight/Heterosexual Current gender identity: Female Vitals/I&O/Wt Last Vital Signs Temp 97.7 F 05/09/24 16:21 Pulse 103 H 05/09/24 18:40 Resp 20 H 05/09/24 17:00 BP 129/61 05/09/24 18:40 Pulse Ox 94 05/09/24 18:40 O2 Del Method Room Air 05/09/24 18:39 Weight last 48 hrs Weight 74.843 kg Physical Exam 2 Const: COMMON NORMALS: patient oriented x3 and alert GENERAL APPEARANCE: c ooperative ORIENTATION/CONSCIOUSNESS: Yes awake HENMT: COMMON NORMALS: oropharynx normal Neck/C-Spine: COMMON NORMALS: no JVD Resp: COMMON NORMALS: clear to auscultation bilaterally EFFORT & INSPECTION: Yes tachypneic AUSCULTATION: wheezes and diminished lung sounds OTHER: Cough. Cardio: COMMON NORMALS: no JVD, regular rhythm, S1 normal heart sound present, S2 normal heart sound present and No murmurs present (Cardio) RHYTHM: regular rhythm HEART SOUNDS: S1 normal heart sound present and S2 normal heart sound present GI: COMMON NORMALS: Normal to inspection, nondistended, normoactive bowel sounds present, Soft to palpation and non-tender PALPATION: Yes Soft to palpation Extremity: COMMON NORMALS: no joint enlargement OTHER: Trace edema. Neuro: COMMON NORMALS: patient oriented x3 and moves all extremities S ENSORIUM/ORIENTATION: Yes alert Skin: COMMON NORMALS: no rashes or lesions noted GENERAL SKIN EXAM: no rashes or lesions noted Data 05/09/24 16:31 05/09/24 16:31 A&P Assessment and plan (1) Asthma with COPD with exacerbation: Shortness of breath, dyspnea with exertion, wheezing, dry cough, tachycardia, tachypnea, on my interpretation chest x-ray without sign of pneumonia, hyperinflation, pending official read. Reviewed vitals, CBC, ABG, CMP, troponin, NT proBNP, respiratory viral studies, coronavirus, influenza, RSV. Reviewed ER note, discussed with ER provider. Overlap asthma and COPD, with moderate to severe exacerbation. She has received Decadron, breathing treatments, will continue with steroid with Solu-Medrol 60 mg every 6 hours, breathing treatments every 4 hours with DuoNebs as well as every 4 hours as needed. Monitor for risk of hypertension, encephalopathy, gastritis. Will additional empirically give azithromycin. Monitor for risk of QT prolongation. Reviewed EKG. Monitor oxygenation, oxygen support as needed to maintain saturation 88-92%. (2) Acute exacerbation of CHF (congestive heart failure): With superimposed mild diastolic CHF exacerbation, on review of echo from 2021, normal ejection fraction, grade 1 diastolic dysfunction. With peripheral edema, BNP elevation 3033. Received Lasix. Continue IV Lasix. Monitor for risk of kidney dysfunction, electrolyte deficiency with IV diuretics. Reassess chemistry. Reassess volume status. Check magnesium. Replace potassium. Qualifiers: Heart failure type: systolic Qualified Code(s): I50.23 - Acute on chronic systolic (congestive) heart failure Plan CAD: Continue statin HTN: Monitor blood pressures HLD: Continue statin KRISTOFER: Continue nightly CPAP Attestations 2 Medical Necessity Statement*: Admission of over 2 midnights anticipated for assessment management of moderate to severe exacerbation of asthma-COPD overlap, CHF exacerbation. and High MDM includes amount and/or complexity of data reviewed/ordered [ previous or external records, resulted lab(s)/test(s), ordered lab(s)/test(s), independent test interpretation and other healthcare professional discussion] and described risk of complication, morbidity or mortality of management as documented Diagnoses Asthma with COPD with exacerbation J44.1 Acute on chronic systolic congestive heart failure I50.23 Heart failure type: systolic
[2024-05-09 19:36] LABS: Magnesium 1.8 mg/dL (1.7-2.3)
[2024-05-09] MEDS: potassium chloride ER 20 mEq Tablet 40 MEQ PO (20:12)
[2024-05-09] MEDS: enoxaparin 40 mg/0.4 mL Syringe SUBCUT (20:15)
[2024-05-09] MEDS: methylPREDNISolone sod succ 125 mg/2 mL INJ 60 MG IVP (20:16)
[2024-05-09] MEDS: AZITHROMYCIN ADD-Vantage 500 MG in 0.9% NaCl ADD-Vantage 250 ML 250 MG IV (20:17)
[2024-05-09] MEDS: guaiFENesin 100 mg/5 mL UDC 10 mL 200 MG PO (21:04)
--- NOTE | 2024-05-09 21:19 | ECG_ITS ---
[facility] Test Date: 2024-[facility]-09 Pat Name: Nhung Leone Department: Room: 111 Gender: Female Nuclear Unit Operator: : 1965 Requested By: Aj Crockett Order Number: [id number] Apoorva MD: Piedad Estrada M.D. Measurements Intervals [place] Rate: 96 P: 58 VT: 136 QRS: 87 QRSD: 92 T: 84 QT: 402 QTc: 510 Interpretive Statements SINUS RHYTHM Compared to ECG 05/09/2024 18:40:17 Sinus arrhythmia no longer present ST (T wave) deviation no longer present Electronically Signed On 05-10-2024 14:15:25 PRINTING WORKER SUPERVISOR by Piedad Estrada M.D. [email or web address]
[2024-05-09] MEDS: benzonatate 100 mg Capsule PO (21:59)
[2024-05-09 22:55] LABS: Troponin 5 6HR Delta 0.00001 ng/L (0-12)
[2024-05-10] VITALS (13 sets, daily range): BP systolic 98–129; BP diastolic 58–86; PULSE 62–101; RESP 17–35; TEMP 36.5–37.1; O2SAT 91–96
[2024-05-10] MEDS: methylPREDNISolone sod succ 125 mg/2 mL INJ 60 MG IVP ×4 (03:29→20:08)
[2024-05-10] MEDS: benzonatate 100 mg Capsule PO ×2 (03:29→17:09)
[2024-05-10] MEDS: FUROsemide 10 mg/mL SDV 4mL 40 MG IVP ×2 (03:30→15:27)
[2024-05-10 03:52] LABS: Basophils % 0.1 %; Hematocrit 33.3 % (36-47); Lymphocytes # 0.6 10^3/uL (0.8-4.8); Lymphocytes % 7.1 %; Mean Corpuscular HGB Conc 32.4 g/dL (30-55); Mean Corpuscular Hemoglobin 29.7 pg (27-33); Mean Corpuscular Volume 91.5 fl (85-98); Mean Platelet Volume 11.3 fL (7.4-10.4); Monocytes % 0.3 %; Neutrophils # 8.17 10^3/uL (1.8-7.7); Nucleated Red Blood Cells % 0 %; Platelet Count 247 10^3/cmm (157-399); Red Blood Count 3.64 10^6/uL (3.85-5.65); Red Cell Distribution Width 14.2 % (12.1-15.1); White Blood Count 8.88 10^3/uL (3.29-11.43)
[2024-05-10 04:19] LABS: Anion Gap 14.2 (5-19); Blood Urea Nitrogen 9 mg/dL (6-20); Calcium 8.2 mg/dL (8.5-10.5); Carbon Dioxide 26 mmol/L (22-29); Chloride 107 mmol/L (98-107); Creatinine Clr Calc Pharmacy 89.5745; Glomerular Filtration Rate 85.9 mL/min (90-130); Glucose 135 mg/dL (65-115); Osmolality Calculated 297 mOsm/kg (285-295); Potassium 4.2 mmol/L (3.5-5.1); Sodium 143 mmol/L (136-145)
[2024-05-10] MEDS: guaiFENesin 100 mg/5 mL UDC 10 mL 200 MG PO ×2 (06:12→17:09)
[2024-05-10] MEDS: ipratropium-albuterol 3 mL Neb INHALATION ×3 (08:02→21:02)
[2024-05-10] MEDS: magnesium sulfate premix 2 GM/50 ML PIGGYBACK IV (08:47)
--- NOTE | 2024-05-10 13:46 | P.PN_ITS ---
Subjective 2 Subjective: She feels she is improving today. She is now able to speak in complete sentences, was able to get ambulate to the bathroom, however, with exertion still gets dyspneic. Still wheezing. Still with cough but with improvement. Vitals/I&O/Wt Last Vital Signs Temp 97.7 F 05/10/24 03:26 Pulse 100 05/10/24 08:25 Resp 20 H 05/10/24 08:25 BP 128/81 05/10/24 08:25 Pulse Ox 92 05/10/24 08:25 O2 Del Method Room Air 05/10/24 08:13 FiO2 21 05/09/24 20:07 05/09/24 05/10/24 05/10/24 22:59 06:59 14:59 Intake Total 750 / 750 50 / 50 Output Total 900 / 900 300 / 300 Balance 750 / 750 -900 / -150 -250 / -250 Weight last 48 hrs Weight 81.42 kg Weight 79.878 kg Weight 74.843 kg Physical Exam 2 Const: COMMON NORMALS: patient oriented x3 and alert GENERAL APPEARANCE: c ooperative ORIENTATION/CONSCIOUSNESS: Yes awake HENMT: COMMON NORMALS: oropharynx normal Neck/C-Spine: COMMON NORMALS: no JVD Resp: COMMON NORMALS: clear to auscultation bilaterally EFFORT & INSPECTION: Yes tachypneic AUSCULTATION: clear to auscultation bilaterally, wheezes and diminished lung sounds (Improving air entry) OTHER: Cough. Cardio: COMMON NORMALS: no JVD, regular rhythm, S1 normal heart sound present, S2 normal heart sound present and No murmurs present (Cardio) RHYTHM: regular rhythm HEART SOUNDS: S1 normal heart sound present and S2 normal heart sound present GI: COMMON NORMALS: Normal to inspection, nondistended, normoactive bowel sounds present, Soft to palpation and non-tender PALPATION: Yes Soft to palpation Extremity: COMMON NORMALS: no joint enlargement OTHER: Trace edema. Neuro: COMMON NORMALS: patient oriented x3 and moves all extremities S ENSORIUM/ORIENTATION: Yes alert Skin: COMMON NORMALS: no rashes or lesions noted GENERAL SKIN EXAM: no rashes or lesions noted Data 05/10/24 03:02 05/10/24 03:02 A&P Assessment and plan (1) Asthma with COPD with exacerbation: She feels she is now improving. She is still wheezing, still diminished air entry but with slight improvement. She is now able to more easily speak. Tachypnea is improving, down to 20 breaths/min. Tachycardia improving, down to 100. Still diffuse wheezing. Discussed with her continued IV steroid therapy, monitor for risk of hyperglycemia, hypertension, gastritis, encephalopathy. Reviewed vitals, CBC, BMP. Reviewed magnesium, will give magnesium 2 g. Recheck level. Discussed with her continuing azithromycin. Continue breathing treatments, scheduled and as needed. Discussed with respite therapist. Monitor oxygenation. Monitor for risk of QT prolongation with azithromycin. Repeat EKG. Monitor oxygenation, oxygen support as needed to maintain saturation 88-92%. (2) Acute exacerbation of CHF (congestive heart failure): Reviewed intake and output, renal function, potassium, -400 mL. Reviewed magnesium, supplement. Recheck level. With superimposed mild diastolic CHF exacerbation, on review of echo from 2021, normal ejection fraction, grade 1 diastolic dysfunction. With peripheral edema, BNP elevation 3033. Received Lasix. Continue IV Lasix. Monitor for risk of kidney dysfunction, electrolyte deficiency with IV diuretics. Reassess chemistry. Reassess volume status. Qualifiers: Heart failure type: systolic Qualified Code(s): I50.23 - Acute on chronic systolic (congestive) heart failure Plan CAD: Continue statin HTN: Monitor blood pressures HLD: Continue statin KRISTOFER: Continue nightly CPAP Attestations 2 Medical Necessity Statement*: Continue admission for assessment management of moderate to severe asthma with COPD exacerbation, CHF exacerbation. and High MDM includes amount and/or complexity of data reviewed/ordered [ resulted lab(s)/test(s), ordered lab(s)/test(s) and other healthcare professional discussion] and described risk of complication, morbidity or mortality of management as documented Diagnoses Asthma with COPD with exacerbation J44.1 Acute on chronic systolic congestive heart failure I50.23 Heart failure type: systolic
[2024-05-10] MEDS: pantoprazole DR 40 mg Tablet PO (17:09)
[2024-05-10] MEDS: AZITHROMYCIN ADD-Vantage 500 MG in 0.9% NaCl ADD-Vantage 250 ML 250 MG IV (20:09)
[2024-05-10] MEDS: enoxaparin 40 mg/0.4 mL Syringe SUBCUT (20:14)
[2024-05-11] VITALS (16 sets, daily range): BP systolic 102–125; BP diastolic 61–81; PULSE 65–98; RESP 16–29; TEMP 36.6–37; O2SAT 90–97
[2024-05-11] MEDS: ipratropium-albuterol 3 mL Neb INHALATION ×4 (01:46→21:18)
[2024-05-11] MEDS: methylPREDNISolone sod succ 125 mg/2 mL INJ 60 MG IVP ×3 (03:36→19:47)
[2024-05-11] MEDS: FUROsemide 10 mg/mL SDV 4mL 40 MG IVP ×2 (03:37→12:55)
[2024-05-11 04:47] LABS: Basophils % 0.1 %; Eosinophils % 0.1 %; Hematocrit 36.5 % (36-47); Lymphocytes # 1.1 10^3/uL (0.8-4.8); Lymphocytes % 3.7 %; Mean Corpuscular HGB Conc 32.9 g/dL (30-55); Mean Corpuscular Hemoglobin 29.8 pg (27-33); Mean Corpuscular Volume 90.6 fl (85-98); Mean Platelet Volume 10.9 fL (7.4-10.4); Monocytes # 0.6 10^3/uL (0.2-0.9); Monocytes % 2.2 %; Neutrophils # 27.53 10^3/uL (1.8-7.7); Neutrophils % 92.7 %; Nucleated Red Blood Cells % 0 %; Platelet Count 347 10^3/cmm (157-399); Red Blood Count 4.03 10^6/uL (3.85-5.65); Red Cell Distribution Width 14.8 % (12.1-15.1)
[2024-05-11] MEDS: benzonatate 100 mg Capsule PO (05:09)
[2024-05-11] MEDS: guaiFENesin 100 mg/5 mL UDC 10 mL 200 MG PO (05:09)
[2024-05-11 05:13] LABS: Anion Gap 17.7 (5-19); Blood Urea Nitrogen 17 mg/dL (6-20); Calcium 9.4 mg/dL (8.5-10.5); Carbon Dioxide 28 mmol/L (22-29); Chloride 100 mmol/L (98-107); Creatinine Clr Calc Pharmacy 89.9261; Glomerular Filtration Rate 73.7 mL/min (90-130); Glucose 140 mg/dL (65-115); Osmolality Calculated 298 mOsm/kg (285-295); Potassium 3.7 mmol/L (3.5-5.1); Sodium 142 mmol/L (136-145)
[2024-05-11 05:15] LABS: Magnesium 2.2 mg/dL (1.7-2.3)
[2024-05-11] MEDS: pantoprazole DR 40 mg Tablet PO (08:42)
--- NOTE | 2024-05-11 08:59 | ECG_ITS ---
[facility]: 2024-[facility]11 Pat Name: Nhung Leone Department: Room: 111 Gender: Female [employer] Inspector: : 1965 Requested By: Jose Chavez Order Number: [id number] Reading MD: Measurements Intervals [place] Rate: 92 P: 63 SD: 155 QRS: 82 QRSD: 91 T: 79 QT: 382 QTc: 474 Interpretive Statements SINUS RHYTHM [email or web address]
--- NOTE | 2024-05-11 09:21 | PC.CHAP ---
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 reporting specialist visit [] Patient/Family/Request visit [] Outpatient visit [] Follow-up visit [] Physician referral [] Code/Alert [x] Routine visit [] Staff referral [] Actively dying [] Patient sleeping [] Family support [] [] Out of room [] Palliative care [] [] Receiving care in room [] Pre-surgical visit [] Trauma [] Long length of stay [] ICU visit [] Other: Relational/Emotional Strength [] Patient feels connected with others/family/visitors/staff [] Distress [] Loneliness/isolation [] Abandonment Spirituality of Patient [x] Person of Shirlene [] Attends Episcopalian of their Shirlene [x] Believes in Prayer [] Reads Bible or Congregation materials [] There are Spiritual issues to be addressed Pack[employer] Interventions [x] Prayer [x] Active listening [] Non-anxious presence [] Spiritual/emotional support [] Crisis/trauma care [] Spiritual counseling [] Bereavement support [] Provided bereavement packet [x] Provided Bible/devotional materials [] Provided toy/stuffed animal, coloring book to patient or family member [] Provided Communion [] Anointing/[place] [] Salvation [x] Completed spiritual assessment [] Other: Impact on Illness or Injury [] Angry [] Fearful [] Anxious [] Often cries [] Exhaustion [] Unable to work [] Unable to attend lutheran [] Unable to walk/stand [] Unable to read [] Unable to drive [] Unable to eat/drink [] Unable to sleep [] Unable to be with family [] Patient intubated [] Other: Summary Time spent with patient 15 min
--- NOTE | 2024-05-11 10:04 | USCV_ITS ---
Nhung Leone Age: 58 Gender: F : 1965 Exam Date: 05/11/2024 13:30 Ordering Phys: Parth Edwards MD Technologist: Exam [place] [facility] [place]ication: BP: 143 / 79 HR: 82 Rhythm: Sinus Technical Quality: Adequate MEASUREMENTS (Male / Female) Normal Values 2D ECHO LV Diastolic Diameter PLAX 5.0 cm 4.2 - 5.9 / 3.9 - 5.3 cm IVS Diastolic Thickness 0.7 cm 0.6 - 1.0 / 0.6 - 0.9 cm IVS Systolic Thickness 1.1 cm LVPW Diastolic Thickness 0.9 cm 0.6 - 1.0 / 0.6 - 0.9 cm LVPW Systolic Thickness 1.0 cm LVOT Diameter 1.9 cm LV Ejection Fraction 2D Teich 48.5 % LV Ejection Fraction MOD 4C 57.9 % LV Ejection Fraction MOD 2C 73.0 % LV Ejection Fraction 2C AL 72.8 % LA Diameter 2.6 cm RA Systolic Volume 4C AL 34.4 ml RA Systolic Volume 4C MOD 33.7 ml Aorta at Sinotubular Diameter 2.5 cm M-MODE LA Ao Ratio MM 1.2 AV Cusp Separation MM 1.8 cm DOPPLER AV Peak Velocity 165.0 cm/s LVOT Peak Velocity 115.0 cm/s AV Area Cont Eq vti 2.4 cm squared AV Area Cont Eq pk 2.0 cm squared MV Area PHT 5.1 cm squared Mitral E to A Ratio 0.9 TR Peak Velocity 139.0 cm/s TR Peak Gradient 7.7 mmHg TV Peak E Velocity 102.0 cm/s Right Atrial Pressure 3.0 mmHg Pulmonary Artery Systolic Pressu 10.7 mmHg PV Peak Velocity 117.0 cm/s FINDINGS Left Ventricle Normal left ventricular size, systolic function and wall thickness, with no regional wall motion abnormalities. Left ventricular ejection fraction is estimated at 60 %. Normal diastolic function. Right Ventricle The right ventricle is normal in size and function. Right Atrium The right atrium is normal in size. Left Atrium The left atrium is normal in size. Mitral Valve Structurally normal mitral valve without significant stenosis or prolapse. There is trace mitral regurgitation. Aortic Valve Moderate aortic valve calcification. No aortic valve stenosis. Trace aortic valve regurgitation. Tricuspid Valve Mild tricuspid valve regurgitation. Pulmonic Valve Structurally normal pulmonic valve without significant stenosis. There is no pulmonic regurgitation. Pericardium Normal pericardium without effusion. Aorta Normal ascending aorta dimension. IVC The inferior vena cava appears normal. CONCLUSIONS Normal left ventricular size, systolic function and wall thickness, with no regional wall motion abnormalities. Left ventricular ejection fraction is estimated at 60 %. Normal diastolic function. Mild tricuspid valve regurgitation. Structurally normal mitral valve without significant stenosis or prolapse. There is trace mitral regurgitation. There is no pericardial effusion. Pulmonary artery systolic pressure is within normal limits. Right atrial pressure is around 10 mm of mercury. Joe Bass MD (Electronically Signed) Final Date: 11 May 2024 19:43 S
--- NOTE | 2024-05-11 10:04 | PC.SOCIAL ---
IMM Update Updated pt on IMM. No questions voiced. Provided pt a copy. Initialed, dated, & timed a copy & placed in chart.
[2024-05-11 10:53] LABS: Estmated Average Glucose 108; Hemoglobin A1C 5.4 % (4.0-6.0)
[2024-05-11 10:59] LABS: D Dimer 0.62 ug/mLFEU (0-0.59)
[2024-05-11] MEDS: cefTRIAXone 1,000 mg SDV 1000 MG IVP (11:05)
[2024-05-11 11:10] LABS: Procalcitonin 0.04 ng/mL (0-0.5); Vitamin B12 313 pg/mL (232-1245)
[2024-05-11 11:24] LABS: Iron 35 ug/dL (37-145); Percent Saturation 10.7 % (20-50); Total Iron Binding Capacity 325 mcg/dl; Unsaturated Iron Binding 290 ug/dL (112-347)
--- NOTE | 2024-05-11 12:25 | CT_ITS ---
WS: [id number] CT chest wo con [id number] HISTORY: copd/pna/ SOB, leukocytosis TECHNIQUE: Axial imaging performed through the thorax. Coronal and sagittal reformats are submitted. All CT scans at [facility] use at least one of these dose optimization techniques: automated exposure control; mA and/or kV adjustment per patient size (includes targeted exams where dose is mat ched to clinical indication); or iterative reconstruction. CONTRAST: Omnipaque 350; 100 mL IV. DLP: 411.45 mGy.cm COMPARISON: 08/02/2023 Lungs and central airway: Pulmonary hyperinflation. Peripheral interstitial thickening and a few subp leural cystic areas. There are a few scattered granulomata. Reidentified is groundglass attenuation a nd subsolid consolidation along the RIGHT upper lobe abutting the fissure. Slightly improved since 08/02/2023 but the consolidation does persist. Similar findings are along the additional fissures bilater ally. This may be related to patient's interstitial lung disease and not pneumonia. Bronchiectasis in the lower lobes. Pleura: Normal. No pleural effusion. Heart and pericardium: Normal size heart with no pericardial effusion. Mediastinum and aletha: No mediastinum or hilar adenopathy. Vessels: Normal size aortic and pulmonary artery. No coronary artery calcifications. Chest wall and lower neck: No soft tissue masses. Upper abdomen: Small hiatal hernia. No adrenal mass. Prior cholecystectomy. Osseous structures: No destructive process. CT/CT chest wo con [id number] IMPRESSION: 1. Chronic emphysema with no dense areas of consolidation. 2. Subsolid areas of consolidation along the fissures. Similar findings noted on the prior study of 08/02/2023 with slight improvement. This may be related to interstitial lung disease. No pneumonia. 3. Mild bilateral lower lobe bronchiectasis. 4. No adenopathy. 5. Small hiatal hernia. 6. Prior cholecystectomy.
--- NOTE | 2024-05-11 12:27 | P.PN_ITS ---
Subjective 2 Subjective: Hospital course, labs appreciated. Examination patient laying comfortably in bed. States she is feeling better than when she came in. Denies any nausea, vomiting, headache. Hemodynamically stable. Saturating around 90% on 2 L. Able to ambulate without much difficulty in breathing than baseline today. Vitals/I&O/Wt Last Vital Signs Temp 98.4 F 05/11/24 11:16 Pulse 86 05/11/24 11:16 Resp 17 05/11/24 11:16 BP 102/61 05/11/24 11:16 Pulse Ox 92 05/11/24 11:16 O2 Del Method Nasal Cannula 05/11/24 11:16 O2 Flow Rate 2 05/11/24 11:16 FiO2 21 05/09/24 20:07 05/10/24 05/11/24 05/11/24 22:59 06:59 14:59 Intake Total 490 / 540 Output Total 1800 / 2100 1600 / 3700 Balance -1310 / -1560 -1600 / -3160 Weight last 48 hrs Weight 103.737 kg Weight 81.42 kg Weight 79.878 kg Weight 74.843 kg Physical Exam 2 Const: COMMON NORMALS: patient oriented x3 and alert GENERAL APPEARANCE: c ooperative ORIENTATION/CONSCIOUSNESS: Yes awake HENMT: COMMON NORMALS: oropharynx normal Neck/C-Spine: COMMON NORMALS: no JVD Resp: COMMON NORMALS: clear to auscultation bilaterally EFFORT & INSPECTION: Yes tachypneic AUSCULTATION: clear to auscultation bilaterally, wheezes and diminished lung sounds (Improving air entry) OTHER: Cough. Cardio: COMMON NORMALS: no JVD, regular rhythm, S1 normal heart sound present, S2 normal heart sound present and No murmurs present (Cardio) RHYTHM: regular rhythm HEART SOUNDS: S1 normal heart sound present and S2 normal heart sound present GI: COMMON NORMALS: Normal to inspection, nondistended, normoactive bowel sounds present, Soft to palpation and non-tender PALPATION: Yes Soft to palpation Extremity: COMMON NORMALS: no joint enlargement OTHER: Trace edema. Neuro: COMMON NORMALS: patient oriented x3 and moves all extremities S ENSORIUM/ORIENTATION: Yes alert Skin: COMMON NORMALS: no rashes or lesions noted GENERAL SKIN EXAM: no rashes or lesions noted Data 05/11/24 04:20 05/11/24 04:20 A&P Assessment and plan (1) Respiratory failure: Most likely in setting of COPD exacerbation along with diastolic heart failure. Given leukocytosis today cannot rule out pneumonia. Oxygen supplementation keeping saturation over 90%. Check sputum culture, D-dimer. CT chest without contrast if D-dimer negative to rule out pneumonia. Continue with azithromycin. MRSA swab recently negative. Add IV ceftriaxone. (2) Asthma with COPD with exacerbation: Add Pulmicort twice daily, continue with DuoNeb every 6 hour. Aggressive pulmonary toilet with incentive spirometry. Out of bed to chair. Antibiotic as above. Change Solu-Medrol to 60 mg twice daily. (3) Acute exacerbation of CHF (congestive heart failure): Most likely diastolic heart failure. Last echocardiogram from May 2022 showed normal EF with grade 1 diastolic dysfunction. Patient overall more than 3 L negative in the last 30 hours. Will decrease Lasix to 40 mg IV daily. Repeat echocardiogram. Fluid restriction to less than 1500 cc. Strict input output charting, daily weights. Qualifiers: Heart failure type: systolic Qualified Code(s): I50.23 - Acute on chronic systolic (congestive) heart failure (4) Diastolic congestive heart failure: Plan CAD: Continue statin, denies any chest pain. Check A1c, lipid panel. HTN: Goal blood pressure less than 140/90 mmHg. Continue to monitor. HLD: Continue statin KRISTOFER: Continue nightly CPAP Full code Cardiac diet Lovenox for DVT prophylaxis Protonix OPD prophylaxis Attestations 2 Medical Necessity Statement*: Requires further hospitalization for management of respiratory failure in setting of COPD exacerbation with asthma, diastolic heart failure while pneumonia is being ruled out Diagnoses Respiratory failure J96.90 Asthma with COPD with exacerbation J44.1 Acute on chronic systolic congestive heart failure I50.23 Heart failure type: systolic Diastolic congestive heart failure I50.30
--- NOTE | 2024-05-11 14:40 | PC.NURSE ---
off unit to ct scan. ushered via wheelchair.
[2024-05-11] MEDS: acetaminophen 325 mg Tablet 650 MG PO (19:46)
[2024-05-11] MEDS: enoxaparin 40 mg/0.4 mL Syringe SUBCUT (19:47)
[2024-05-11] MEDS: AZITHROMYCIN ADD-Vantage 500 MG in 0.9% NaCl ADD-Vantage 250 ML 250 MG IV (19:47)
[2024-05-11] MEDS: budesonide 0.5 mg/2 mL Neb INHALATION (21:18)
--- NOTE | 2024-05-11 22:45 | PC.NURSE ---
Addendum entered by Karyn Keith RN 05/12/24 00:45: Swelling, pain, and redness to old IV site in left AC is now gone. Original Note: After IV Azithromycin infused, HEIDI Win notified this RN that patient's arm was swollen and red above IV site. She stated that she flushed the IV and it flushed well and that the IV also had blood return. When I went to see patient, patient was c/o severe pain to IV site. The IV appeared to be infiltrated as it was very swollen, red, and painful. Patient was not having any other symptoms. Dr. Menjivar notified of patient's symptoms and stated that it does not sound like an allergic reaction. He ordered to change the IV site. IV was removed and a new IV was started.
[2024-05-12] VITALS (10 sets, daily range): BP systolic 109–128; BP diastolic 68–77; PULSE 59–87; RESP 17–27; TEMP 36.6; O2SAT 87–96
[2024-05-12] MEDS: ipratropium-albuterol 3 mL Neb INHALATION ×2 (03:26→08:07)
[2024-05-12 03:55] LABS: Basophils % 0.1 %; Eosinophils # 0.1 10^3/uL (0.0-0.8); Eosinophils % 0.3 %; Hematocrit 34.1 % (36-47); Lymphocytes # 1.2 10^3/uL (0.8-4.8); Lymphocytes % 5.1 %; Mean Corpuscular HGB Conc 32.8 g/dL (30-55); Mean Corpuscular Hemoglobin 30.1 pg (27-33); Mean Corpuscular Volume 91.7 fl (85-98); Mean Platelet Volume 11.3 fL (7.4-10.4); Monocytes # 0.6 10^3/uL (0.2-0.9); Monocytes % 2.5 %; Neutrophils # 20.41 10^3/uL (1.8-7.7); Neutrophils % 90.8 %; Nucleated Red Blood Cells % 0 %; Platelet Count 331 10^3/cmm (157-399); Red Blood Count 3.72 10^6/uL (3.85-5.65); White Blood Count 22.48 10^3/uL (3.29-11.43)
[2024-05-12 04:21] LABS: Alanine Aminotransferase 11 U/L (0-33); Albumin Level 3.6 g/dL (3.5-5.2); Alkaline Phosphatase 130 U/L (35-105); Aspartate Amino Transferase 10 U/L (0-32); Blood Urea Nitrogen 23 mg/dL (6-20); Calcium 8.6 mg/dL (8.5-10.5); Carbon Dioxide 31 mmol/L (22-29); Chloride 100 mmol/L (98-107); Creatinine Clr Calc Pharmacy 102.7727; Globulin 2.4 g/dL (1.3-4.6); Glomerular Filtration Rate 85.9 mL/min (90-130); Glucose 131 mg/dL (65-115); Osmolality Calculated 293 mOsm/kg (285-295); Sodium 139 mmol/L (136-145); Total Bilirubin 0.2 mg/dL (0.15-1.2)
[2024-05-12 04:39] LABS: Folate Level 5.3 ng/mL (4.8-37.3)
[2024-05-12] MEDS: budesonide 0.5 mg/2 mL Neb INHALATION (08:07)
[2024-05-12] MEDS: fluoxetine 20 mg Capsule 40 MG PO (08:20)
[2024-05-12] MEDS: atorvastatin 40 mg Tablet 80 MG PO (08:20)
[2024-05-12] MEDS: methylPREDNISolone sod succ 125 mg/2 mL INJ 60 MG IVP (08:21)
[2024-05-12] MEDS: pantoprazole DR 40 mg Tablet PO (08:21)
--- NOTE | 2024-05-12 09:48 | P.DS_ITS ---
Discharge Providers Date of Admission: 05/09/24 17:44 Date of Discharge: May 12, 2024 Attending Provider at Admission: Jose Chavez Attending Provider at Discharge: Parth Edwards MD Primary Care Provider: Lauri Krishnan MD Diagnoses at Discharge Discharge Diagnosis (1) Respiratory failure: Status: Acute (2) Asthma with COPD with exacerbation: Status: Acute (3) Acute exacerbation of CHF (congestive heart failure): Status: Acute Qualifiers: Heart failure type: systolic Qualified Code(s): I50.23 - Acute on chronic systolic (congestive) heart failure (4) Diastolic congestive heart failure: Status: Acute Reason for Visit Reason for Visit: sob, chest tightness Brief History: History as per HPI: Nhung Leone is a 58 year old female presented to ER due to shortness of breath, wheezing, dyspnea on exertion, chest/breathing feels tight . She is having some minor dry cough, no phlegm production. Has not had any fever. Review loose stools. In ER he is found to have significant wheezing on exam, si nus tachycardia 103, cough, tachypnea 26. Hospital Course Hospital Course Patient was admitted to the hospital for evaluation and management of respiratory distress in setting of COPD exacerbation along with mild diastolic heart failure. She was started on nebulization treatment along with steroids. Pneumonia was ruled out with negative chest imaging. She was also managed with occasional diuresis as per fluid status. Patient responded well to the treatment and is back to her baseline of supplementation for more than 24 hours. She has been discharged heme-negative stable condition on steroid taper with advised to follow-up with a primary care provider within next 1 week. Echocardiogram was done during hospitalization which showed normal EF without regional wall motion abnormality. Physical Exam Const: COMMON NORMALS: patient oriented x3 and alert GENERAL APPEARANCE: cooperative ORIENTATION/CONSCIOUSNESS: Yes awake HENMT: COMMON NORMALS: oropharynx normal Neck/C-Spine: COMMON NORMALS: no JVD Resp: COMMON NORMALS: clear to auscultation bilaterally EFFORT & INSPECTION: Yes tachypneic AUSCULTATION: clear to auscultation bilaterally, wheezes and diminished lung sounds (Improving air entry) OTHER: Cough. Cardio: COMMON NORMALS: no JVD, regular rhythm, S1 normal heart sound present, S2 normal heart sound present and No murmurs present (Cardio) RHYTHM: regular rhythm HEART SOUNDS: S1 normal heart sound present and S2 normal heart sound present GI: COMMON NORMALS: Normal to inspection, nondistended, normoactive bowel sounds present, Soft to palpation and non-tender PALPATION: Yes Soft to palpation Extremity: COMMON NORMALS: no joint enlargement OTHER: Trace edema. Neuro: COMMON NORMALS: patient oriented x3 and moves all extremities SENSORIUM/ORIENTATION: Yes alert Skin: COMMON NORMALS: no rashes or lesions noted GENERAL SKIN EXAM: no rashes or lesions noted Discharge Data Studies Completed and Pending Completed Studies During Hospitalization Category Date Time Status CT chest wo con [id number] Urgent Cat Scan 05/11/24 12:25 Completed XR chest 1V portable [id number] Stat Exams 05/09/24 16:23 Completed CV. echo complete* [id number] Routine Ultrasound 05/11/24 10:04 Completed Pending at discharge Category Date Time Status Bacterial Antigen Stat Lab 05/11/24 08:47 Received MAG [Magnesium] AM LABS Lab 05/13/24 04:00 Ordered MAG [Magnesium] AM LABS Lab 05/14/24 04:00 Ordered Sputum Culture and Gram Stain Stat Lab 05/11/24 12:25 Uncollected Radiology Impressions Chest X-Ray 05/09/24 16:23 IMPRESSION: No acute pathology or significant interval change. Chest CT 05/11/24 12:25 IMPRESSION: 1. Chronic emphysema with no dense areas of consolidation. 2. Subsolid areas of consolidation along the fissures. Similar findings noted on the prior study of 08/02/2023 with slight improvement. This may be related to interstitial lung disease. No pneumonia. 3. Mild bilateral lower lobe bronchiectasis. 4. No adenopathy. 5. Small hiatal hernia. 6. Prior cholecystectomy. Echocardiogram: CONCLUSIONS Normal left ventricular size, systolic function and wall thickness, with no regional wall motion abnormalities. Left ventricular ejection fraction is estimated at 60 %. Normal diastolic function. Mild tricuspid valve regurgitation. Structurally normal mitral valve without significant stenosis or prolapse. There is trace mitral regurgitation. There is no pericardial effusion. Pulmonary artery systolic pressure is within normal limits. Right atrial pressure is around 10 mm of mercury. Joe Bass MD (Electronically Signed) Final Date: 11 May 2024 Laboratory Results WBC 22.48 10^3/uL (3.29-11.43) H 05/12/24 03:14 RBC 3.72 10^6/uL (3.85-5.65) L 05/12/24 03:14 Hgb 11.20 g/dL (11.27-16.99) L 05/12/24 03:14 Hct 34.1 % (36-47) L 05/12/24 03:14 MCV 91.7 fl (85-98) 05/12/24 03:14 MCH 30.1 pg (27-33) 05/12/24 03:14 MCHC 32.8 g/dL (30-55) 05/12/24 03:14 RDW 15.0 % (12.1-15.1) 05/12/24 03:14 Plt Count 331 10^3/cmm (157-399) 05/12/24 03:14 MPV 11.3 fL (7.4-10.4) H 05/12/24 03:14 Neut % (Auto) 90.8 % 05/12/24 03:14 Lymph % (Auto) 5.1 % 05/12/24 03:14 [place] % (Auto) 2.5 % 05/12/24 03:14 Eos % (Auto) 0.3 % 05/12/24 03:14 Baso % (Auto) 0.1 % 05/12/24 03:14 Neut # (Auto) 20.41 10^3/uL (1.8-7.7) H 05/12/24 03:14 Lymph # (Auto) 1.2 10^3/uL (0.8-4.8) 05/12/24 03:14 [place] # (Auto) 0.6 10^3/uL (0.2-0.9) 05/12/24 03:14 Eos # (Auto) 0.1 10^3/uL (0.0-0.8) 05/12/24 03:14 Baso # (Auto) 0.0 10^3/uL (0.0-0.1) 05/12/24 03:14 Nucleated RBC % (auto) 0 % 05/12/24 03:14 Nucleated RBCs # 0.0 /100WBC 05/12/24 03:14 D-Dimer 0.62 ug/mLFEU (0-0.59) H 05/11/24 10:39 Specimen Type Arterial 05/09/24 16:45 Sample Site Radial, right 05/09/24 16:45 ABG pH 7.46 (7.35-7.45) H 05/09/24 16:45 ABG pCO2 35.2 mmHg (35-45) 05/09/24 16:45 ABG pO2 78.5 mmHg (80.0-100.0) L 05/09/24 16:45 ABG PO2/FiO2 Ratio 373 05/09/24 16:45 ABG HCO3 25.2 mmol/L (22-26) 05/09/24 16:45 ABG O2 Saturation 97.4 05/09/24 16:45 ABG Base Excess 1.6 mmol/L (-2.0-2.0) 05/09/24 16:45 Alfredo Test Pos 05/09/24 16:45 A-a O2 Gradient 3.4 mmHg (5-10) L 05/09/24 16:45 Hematocrit 34.8 % (37-47) L 05/09/24 16:45 Hgb O2 Saturation 91.9 % (95-100) L 05/09/24 16:45 Carboxyhemoglobin 4.5 %THgb (0.4-20.1) 05/09/24 16:45 Methemoglobin 1.2 % (0.4-1.5) 05/09/24 16:45 Total Hemoglobin 11.4 g/dL (12-16) L 05/09/24 16:45 Sodium 144.0 mmol/L (131-143) H 05/09/24 16:45 Potassium 2.8 mmol/L (3.5-5.0) L 05/09/24 16:45 Glucose 124.0 mg/dL (70-115) H 05/09/24 16:45 Ionized Calcium 1.2 mmol/L (1.1-1.4) 05/09/24 16:45 O2 Delivery Device Room air 05/09/24 16:45 FiO2 21.0 % 05/09/24 16:45 Graduate Teaching Associate ID Broma 05/09/24 16:45 Sodium 139 mmol/L (136-145) 05/12/24 03:14 Potassium 4.0 mmol/L (3.5-5.1) 05/12/24 03:14 Chloride 100 mmol/L (98-107) 05/12/24 03:14 Carbon Dioxide 31 mmol/L (22-29) H 05/12/24 03:14 Anion Gap 12.0 (5-19) 05/12/24 03:14 BUN 23 mg/dL (6-20) H 05/12/24 03:14 Creatinine 0.7 mg/dL (0.5-0.9) 05/12/24 03:14 GFR Calculation 85.9 mL/min (90-130) L 05/12/24 03:14 Glucose 131 mg/dL (65-115) H 05/12/24 03:14 Estimat Average Glucose 108 05/11/24 04:20 Hemoglobin A1c 5.4 % (4.0-6.0) 05/11/24 04:20 Calculated Osmolality 293 mOsm/kg (285-295) 05/12/24 03:14 Calcium 8.6 mg/dL (8.5-10.5) 05/12/24 03:14 Magnesium 2.0 mg/dL (1.7-2.3) 05/12/24 03:14 Iron 35 ug/dL (37-145) L 05/11/24 04:20 TIBC 325 mcg/dl 05/11/24 04:20 % Saturation 10.7 % (20-50) L 05/11/24 04:20 Unsat Iron Binding 290 ug/dL (112-347) 05/11/24 04:20 Total Bilirubin 0.2 mg/dL (0.15-1.2) 05/12/24 03:14 AST 10 U/L (0-32) 05/12/24 03:14 ALT 11 U/L (0-33) 05/12/24 03:14 Alkaline Phosphatase 130 U/L (35-105) H 05/12/24 03:14 Troponin T Baseline < 6 ng/L (0-10) 05/09/24 16:31 Troponin T 120 Minute 6.00 ng/L (0-10) 05/09/24 18:19 Delta Troponin T 0.83694 ABS# (0-10) 05/09/24 18:19 Troponin T Hi Sens 6Hr 6.00 ng/L (0-10) 05/09/24 22:10 Troponin T Hi Sens 6Hr Delta 0.12774 ng/L (0-12) 05/09/24 22:10 NT-Pro-B Natriuret Pep 3033 pg/mL (0-125) H 05/09/24 16:31 Total Protein 6.0 g/dL (6.6-8.7) L 05/12/24 03:14 Albumin 3.6 g/dL (3.5-5.2) 05/12/24 03:14 Globulin 2.4 g/dL (1.3-4.6) 05/12/24 03:14 Vitamin B12 313 pg/mL (232-1245) 05/11/24 04:20 Folate 5.3 ng/mL (4.8-37.3) 05/12/24 03:14 Procalcitonin 0.04 ng/mL (0-0.5) 05/11/24 04:20 Coronavirus (PCR) Negative (Negative) 05/09/24 17:09 Influenza A (PCR) Negative (Negative) 05/09/24 17:09 Influenza Type B (PCR) Negative (Negative) 05/09/24 17:09 RSV (PCR) Negative (Negative) 05/09/24 17:09 Vitals Last Vital Signs Temp 97.9 F 05/12/24 07:15 Pulse 65 05/12/24 08:15 Resp 20 H 05/12/24 08:08 BP 128/77 05/12/24 07:15 Pulse Ox 93 05/12/24 08:08 O2 Del Method Nasal Cannula 05/12/24 08:08 O2 Flow Rate 2 05/12/24 08:08 FiO2 21 05/09/24 20:07 Discharge Plan Discharge Patient Disposition: Home Condition: Stable Prescriptions: New prednisone 10 mg tablet See Taper PO DIRECTED Qty: 42 0RF Taper: predniSONE 60-10 60 mg Daily for 2 Days and 0 Hour 50 mg Daily for 2 Days and 0 Hour 40 mg Daily for 2 Days and 0 Hour 30 mg Daily for 2 Days and 0 Hour 20 mg Daily for 2 Days and 0 Hour 10 mg Daily for 2 Days and 0 Hour Rx Instructions: see taper instructions Continued nitroglycerin 0.4 mg tablet, sublingual 0.4 mg SUBLINGUAL Q5M PRN (Reason: chest pain) Qty: 25 6RF Rx Instructions: do not exceed 3 doses per episode cetirizine [Zyrtec] 10 mg tablet 10 mg PO QAM ipratropium-albuterol 0.5 mg-3 mg(2.5 mg base)/3 mL solution for nebulization 3 ml inhalation Q4H PRN (Reason: wheezing) Qty: 180 6RF atorvastatin 80 mg tablet 80 mg PO DAILY Qty: 90 1RF epinephrine [EpiPen Jr 2-Guille] 0.15 mg/0.3 mL auto-injector 0.15 mg IM Q30M PRN (Reason: anaphylaxis) Qty: 2 1RF Flonase Allergy Relief 50 mcg/actuation spray,suspension 1 spray INTRANASAL BID@, Qty: 15.8 3RF Perforomist 20 mcg/2 mL solution for nebulization See Rx Instructions .ROUTE .COMPLEX Qty: 60 11RF Dose Instruction: USE 1 VIAL IN NEBULIZER EVERY 12 HOURS - Morning and Evening Rx Instructions: USE 1 VIAL IN NEBULIZER EVERY 12 HOURS - Morning and Evening Yupelri 175 mcg/3 mL solution for nebulization See Rx Instructions .ROUTE .COMPLEX Qty: 30 11RF Dose Instruction: USE 1 VIAL IN NEBULIZER DAILY - DO NOT MIX WITH OTHER NEB MEDS, USE BEFORE OR AFTER Rx Instructions: USE 1 VIAL IN NEBULIZER DAILY - DO NOT MIX WITH OTHER NEB MEDS, USE BEFORE OR AFTER pantoprazole 40 mg tablet,delayed release (DR/EC) 40 mg PO BID Qty: 90 2RF Singulair 10 mg tablet 10 mg PO DAILY Qty: 90 1RF Xolair 150 mg/mL syringe 300 mg SUBCUT Q14D Qty: 2 12RF budesonide 0.5 mg/2 mL Suspension For Nebulization 0.5 mg inhalation BID PRN (Reason: Shortness Of Breath) fluoxetine 40 mg capsule 40 mg PO QAM trazodone 50 mg tablet 50 mg PO BEDTIME PRN (Reason: Sleep) Breztri Aerosphere 160-9-4.8 mcg/actuation HFA aerosol inhaler 2 inh INHALATION BID azelastine 137 mcg (0.1 %) spray,non-aerosol 1 spray INTRANASAL BID@0700,2200 PRN (Reason: Allergy Symptoms) Changed potassium chloride 20 mEq tablet,ER particles/crystals 20 meq PO QAM Qty: 15 0RF furosemide 40 mg tablet 40 mg PO DAILY Qty: 30 0RF Discharge Orders: Discharge Order (Routine); Ordered 05/12/24 Ordered By: Parth Jerry Other Ambulatory Orders: DME: Oxygen (Order) Location: None Selected Ordered By: Parth Edwards Referrals: [facility] [Outside] Lauri Krishnan MD [Primary Care Provider] - 05/19/24 10:00 am (Follow up with Dr Krishnan.) Discharge Diet: Cardiac Discharge Activity: Resume usual activity and Increase activity as tolerated Patient Instructions: Prednisone (By mouth), COPD - Emphysema, How to Stop Smoking (DC), Heart Healthy Diet (DC), Using Oxygen at Home (DC), Emphysema (DC), CHF Stoplight, COPD Stoplight, Opioid Safety, Pain Management Activity Restrictions/Additional Instructions: Restrict fluid intake to less than 1500 cc, salt intake to less than 2 g daily. Advised to check his weight daily at home. Is advised that weight today would be the dry weight and if body weight increases by around 5 pounds, patient is to take an extra dose of Lasix daily till body weight comes down to weight today. If not able to come down to dry body weight in 1 week, then is to call PCP office for further recommendations. Patient was counseled in detail to take medications regularly as prescribed. Discharge Attestations Time Spent in Discharge Care*: greater than 30 min Specific Discharge Activities: educating patient, discussing with pcp/other providers, discussing with housing case manager/social workers/dc planners, documenting/other paperwork and evaluating patient/reviewing data Status at Discharge: Cognitive status at discharge: cognitively intact , Behavioral status at discharge: cooperative and independent in ADL's , Functional status at discharge: independent ambulation , Overall status at discharge: patient is back to baseline Quality Metrics Clinical Quality Measures [ No reported AMI, CVA or VTE this stay] Coding Level of Care Code 54947 Total time (in minutes) for Discharge: 60 Diagnoses Respiratory failure J96.90 Asthma with COPD with exacerbation J44.1 Acute on chronic systolic congestive heart failure I50.23 Heart failure type: systolic Diastolic congestive heart failure I50.30
[2024-05-12] MEDS: cefTRIAXone 1,000 mg SDV 1000 MG IVP (11:05)
== END 2024-05-12 11:19 | disposition home or self-care (01) | DRG 291 ==
LOC: ER 17:44 → CSU 05-10 06:57
PROVIDERS: Admitting Provider Internal Medicine; Emergency Provider Family Medicine; PCP Family Medicine; Visit Provider Student in an Organized Health Care Education/Training Program
DX: I11.0 Hypertensive heart disease with heart failure (principal); I50.33 Acute on chronic diastolic (congestive) heart failure; J96.90 Respiratory failure, unspecified, unspecified whether with hypoxia or hypercapnia; J45.51 Severe persistent asthma with (acute) exacerbation; F33.2 Major depressive disorder, recurrent severe without psychotic features; I25.10 Atherosclerotic heart disease of native coronary artery without angina pectoris; J44.9 Chronic obstructive pulmonary disease, unspecified; G47.00 Insomnia, unspecified; E78.5 Hyperlipidemia, unspecified; F43.12 Post-traumatic stress disorder, chronic; F41.1 Generalized anxiety disorder; G89.29 Other chronic pain; M54.9 Dorsalgia, unspecified; G47.33 Obstructive sleep apnea (adult) (pediatric); K21.9 Gastro-esophageal reflux disease without esophagitis; I25.2 Old myocardial infarction; Z79.891 Long term (current) use of opiate analgesic; Z87.891 Personal history of nicotine dependence; Z88.5 Allergy status to narcotic agent; Z88.2 Allergy status to sulfonamides; Z91.041 Radiographic dye allergy status; Z95.5 Presence of coronary angioplasty implant and graft; Z82.49 Family history of ischemic heart disease and other diseases of the circulatory system; Z90.722 Acquired absence of ovaries, bilateral
CPT/HCPCS: 0241U; 36415; 36600; 71045; 71250; 80048; 80051; 80053; 82330; 82607; 82746; 82805; 83036; 83540; 83550; 83735; 83880; 84145; 84484; 85025; 85378; 86403; 93005; 93306; 94640; 94664; 94760; 96372; 96374; 99285; J0456; J0696; J1100; J1650; J1940; J2919; J3475; J7050; J7626

== ENCOUNTER 2024-05-24 12:33 | Emergency (ER) | payer MEDICARE, MEDICAID, SELFPAY ==
[2024-05-24] VITALS (9 sets, daily range): BP systolic 105–126; BP diastolic 68–95; PULSE 95–128; RESP 13–25; TEMP 36.6; O2SAT 90–98; BMI 27.4
--- NOTE | 2024-05-24 12:50 | XRR_ITS ---
PROCEDURE INFORMATION: Exam: XR Chest Exam date and time: 05/24/2024 1:08 PM Age: 58 years old Clinical indication: Prior surgery; Surgery date: 6+ months; Surgery type: Coronary stent 4 years ago; Patient HX: Patient states she began having shortness of breath and having a hard time catching her breath since Saturday. Patient has had a non productive cough since 2 days ago. Patient states she started having abdominal pain today. Patient recently diagnosed with chf and was in the hospital 2 weeks ago. TECHNIQUE: Imaging protocol: Radiologic exam of the chest. Views: 1 view. COMPARISON: CT chest [facility] [id number] 05/11/2024 2:37 PM FINDINGS: Lungs: Unremarkable. No consolidation. Pleural spaces: Unremarkable. No pleural effusion. No pneumothorax. Heart/Mediastinum: Unremarkable. No cardiomegaly. Bones/joints: Unremarkable. XR/XR chest 1V portable [id number] IMPRESSION: No acute findings.
[2024-05-24] MEDS: benzonatate 100 mg Capsule 200 MG PO (12:58)
[2024-05-24] MEDS: methylPREDNISolone sod succ 125 mg/2 mL INJ IVP (12:58)
--- NOTE | 2024-05-24 13:05 | ED_ITS ---
HPI - SOB/Dyspnea 2 General: Chief Complaint: Shortness of Breath/Dyspnea Stated Complaint: sob Time Seen by Provider: 05/24/24 12:43 History of Present Illness: HPI Narrative: Patient presents to the ER with worsening shortness of breath. Spastic cough. Patient had nonproductive spastic cough since Saturday and has been getting worse. Coughing so much now she has abdominal pain. She is recently diagnosed with CHF and is a hospital for about a week being discharged about 2 weeks ago. Patient does have extensive COPD and is on multiple breathing medicines for these. Related Data Home Medications Medication Instructions Recorded Confirmed cetirizine 10 mg tablet (Zyrtec) 10 mg PO QAM 01/03/23 05/24/24 budesonide 0.5 mg/2 mL suspension 0.5 mg inhalation BID PRN 01/04/23 05/24/24 for nebulization Shortness Of Breath budesonide 160 mcg-glycopyr 9 2 inh inhalation BID PRN Shortness 01/04/23 05/24/24 mcg-formot 4.8 mcg/actuation HFA Of Breath inhaler ([employer]) fluoxetine 40 mg capsule 40 mg PO QAM 01/04/23 05/24/24 trazodone 50 mg tablet 50 mg PO BEDTIME PRN Sleep 01/04/23 05/24/24 azelastine 137 mcg (0.1 %) nasal 1 spray intranasal BID@0700,2200 05/09/24 05/24/24 spray PRN Allergy Symptoms aripiprazole 2 mg tablet 2 mg PO DAILY 05/24/24 05/24/24 atorvastatin 80 mg tablet 80 mg PO QAM 05/24/24 05/24/24 clopidogrel 75 mg tablet 75 mg PO DAILY 05/24/24 05/24/24 fluticasone propionate 50 1 spray intranasal BID@07,22 PRN 05/24/24 05/24/24 mcg/actuation nasal allergies spray,suspension (Flonase Allergy Relief) formoterol fumarate 20 mcg/2 mL 20 mcg inhalation Q12H PRN 05/24/24 05/24/24 solution for nebulization Shortness Of Breath (Perforomist) rosuvastatin 40 mg tablet 40 mg PO BEDTIME 05/24/24 05/24/24 spironolactone 25 mg tablet 25 mg PO DAILY 05/24/24 05/24/24 verapamil 120 mg 24 hr 120 mg PO QPM 05/24/24 05/24/24 capsule,extended release Previous Rx's Medication Instructions Recorded revefenacin 175 mcg/3 mL solution See Rx Instructions .Route 01/24/22 for nebulization (Yupelri) .COMPLEX #30 vials epinephrine 0.15 mg/0.3 mL 0.15 mg (0.3 mL) IM Q30M PRN 06/19/22 injection,auto-injector (EpiPen Jr anaphylaxis #2 ea 2-Guille) nitroglycerin 0.4 mg sublingual 0.4 mg sublingual Q5M PRN chest 06/21/22 tablet pain #25 tabs pantoprazole 40 mg tablet,delayed 40 mg PO BID #90 tabs 08/13/22 release montelukast 10 mg tablet 10 mg PO DAILY #90 tabs 08/31/22 (Singulair) ipratropium 0.5 mg-albuterol 3 mg 3 ml inhalation Q4H PRN wheezing 07/18/23 (2.5 mg base)/3 mL nebulization #180 mL soln omalizumab 150 mg/mL subcutaneous 300 mg (2 mL) SUBCUT Q14D #2 mL 12/24/23 syringe (Xolair) furosemide 40 mg tablet 40 mg PO DAILY #30 tabs 05/12/24 potassium chloride 20 mEq 20 meq PO QAM #15 tabs 05/12/24 tablet,extended release(part/cryst) prednisone 50 mg tablet 50 mg PO DAILY #5 tabs 05/24/24 Allergies Allergy/AdvReac Type Severity Reaction Status Date / Time doxycycline Allergy Intermediate ALGY-Hives Verified 05/24/24 11:26 Iodinated Contrast Media Allergy Intermediate ALGY-Hives Verified 05/24/24 11:26 codeine Allergy Unknown Unknown Verified 05/24/24 11:26 Sulfa (Sulfonamide Allergy Unknown Unknown Verified 05/24/24 11:26 Antibiotics) gabapentin Allergy Unknown Verified 05/24/24 11:26 PFS ED 2 PFSH: Medical History Disorders of diaphragm Nicotine addiction CAD (coronary artery disease) (~12/2019) -Known history of CAD with recent stenting of LAD due to anterior wall STEMI in December -Follows up with Dr. Salcedo; f/u in [address] Bass Essential (primary) hypertension -VSS; continue to monitor -continue oral antihypertensives Hypomagnesemia Hypokalemia Encounter for chronic pain management Diastolic congestive heart failure Shortness of breath Severe persistent asthma Closed fracture distal radius and ulna Insomnia Hyperlipidemia Smokers' cough Acute exacerbation of CHF (congestive heart failure) Normocytic anemia -Seems to have intermittent normocytic anemia with a baseline hemoglobin of about 10-11, intermittently normal -Has been on dual antiplatelet therapy given recent stenting -Continue to monitor H&H closely; stable so far -iron and ferritin low; start on iron replacement Asthma -severe persistent, started xolair 02/04/2020 -follow up with Dr. West New onset of congestive heart failure -Could be secondary to recent STEMI requiring intervention with stenting of LAD last month -Echo: EF=57%, normal systolic and diastolic function, no RWMA, trace TR, trace NH -has been on IV diuresis with Lasix; switched to oral lasix -Continue to monitor electrolytes and renal function -Daily weights, monitor ins and outs -BNP elevated at 948 -Chest x-ray reported as unremarkable -Close monitoring of respiratory status, supplemental oxygen as needed Methadone maintenance therapy patient Acute anterior wall ID Chronic post-traumatic stress disorder Generalized anxiety disorder Major depressive disorder, recurrent severe without psychotic features Chronic radicular lumbar pain Herniated disc Sleep apnea, unspecified Lesion of ulnar nerve, bilateral COPD (chronic obstructive pulmonary disease) -no acute exacerbation -does not appear to be oxygen dependent at baseline -recently restarted smoking, 1/2 PPD KRISTOFER on CPAP GERD (gastroesophageal reflux disease) -on PPI Surgical History H/O oral surgery S/P section Presence of stent in LAD coronary artery (01/23/20) H/O bilateral oophorectomy History of cholecystectomy History of carpal tunnel release H/O skin graft Family History Father Myocardial infarct, Onset Age: 45 Brother Myocardial infarct, Onset Age: 53 Other CAD (coronary artery disease) Closed fracture distal radius and ulna Social History Smoking and tobacco/nicotine status: never used tobacco/nicotine Quit status (tobacco/nicotine): has quit using Year quit tobacco: 2020 - 1PPD x 30 Years Second hand smoke exposure: Yes Alcohol intake: former Substance/Drug Use: never Lives independently: Yes Household members: family Marital status: Current occupational status: disabled Do you think of yourself as: Straight/Heterosexual Current gender identity: Female Physical Exam 2 Const: COMMON NORMALS: no acute distress, average body habitus, patient oriented x3, no limitations, healthy appearing, alert and well nourished HENMT: COMMON NORMALS: normocephalic, atraumatic, hearing grossly normal bilaterally, external ears normal, Normal external nose present and moist oral mucous membranes HEAD & SCALP: normocephalic and atraumatic NOSE: Normal external nose present EXTERNAL EAR: Yes external ears normal Neck/C-Spine: COMMON NORMALS: full ROM, no lymphadenopathy, supple, no meningeal signs, no JVD (Tachycardia) and Thyroid normal THYROID: Thyroid normal Chest: COMMONS NORMALS: normal inspection of the chest and normal palpation of entire chest wall Resp: COMMON NORMALS: normal respiratory effort, No retractions and No use of accessory muscles; negative for clear to auscultation bilaterally (Diffuse expiratory wheezing bilaterally) AUSCULTATION: not clear to auscultation bilaterally (Diffuse expiratory wheezing bilaterally) Cardio: COMMON NORMALS: no JVD (Tachycardia), regular rate (Site and tachycardia), regular rhythm, S1 normal heart sound present, S2 normal heart sound present, No gallops present (Cardio), No murmurs present (Cardio) and No rub (Cardio) RATE: regular rate (Site and tachycardia) RHYTHM: regular rhythm HEART SOUNDS: S1 normal heart sound present and S2 normal heart sound present GI: COMMON NORMALS: Normal to inspection, nondistended, normoactive bowel sounds present, Soft to palpation, non-tender, No hepatosplenomegaly present and no masses PALPATION: Yes Soft to palpation and Yes No hepatosplenomegaly present Neuro: COMMON NORMALS: patient oriented x3 SENSORIUM/ORIENTATION: Yes alert MENINGEAL SIGNS: Yes no meningeal signs Course 2 Vital Signs: Vital signs: Vital Signs Temperature 97.9 F 05/24/24 12:41 Pulse Rate 108 H 05/24/24 14:30 Respiratory Rate 20 H 05/24/24 14:30 Blood Pressure 114/68 05/24/24 14:02 Pulse Oximetry 90 05/24/24 14:30 Oxygen Delivery Me thod Room Air 05/24/24 13:24 MDM - SOB/Dyspnea Medical Decision Making Lab work was obtained and was essentially unremarkable, RSV COVID and flu negative, chest x-ray was negative, patient was given 125 mg Solu-Medrol 1 DuoNeb breathing treatment felt much better afterwards. Patient states she felt good after go home. Will send her home for with a dose of prednisone if she decides to take it. Medical Records I reviewed the patient's medical records. Lab Data I reviewed the patient's lab results. 05/24/24 13:04 05/24/24 13:04 Labs/Radiology: Radiology Impressions Chest X-Ray 05/24/24 12:50 IMPRESSION: No acute findings. Laboratory Results WBC 8.88 10^3/uL (3.29-11.43) 05/24/24 13:04 RBC 4.81 10^6/uL (3.85-5.65) 05/24/24 13:04 Hgb 14.00 g/dL (11.27-16.99) 05/24/24 13:04 Hct 43.0 % (36-47) 05/24/24 13:04 MCV 89.4 fl (85-98) 05/24/24 13:04 MCH 29.1 pg (27-33) 05/24/24 13:04 MCHC 32.6 g/dL (30-55) 05/24/24 13:04 RDW 15.3 % (12.1-15.1) H 05/24/24 13:04 Plt Count 328 10^3/cmm (157-399) 05/24/24 13:04 MPV 10.1 fL (7.4-10.4) 05/24/24 13:04 Neut % (Auto) 80.2 % 05/24/24 13:04 Lymph % (Auto) 12.0 % 05/24/24 13:04 [place] % (Auto) 6.4 % 05/24/24 13:04 Eos % (Auto) 0.1 % 05/24/24 13:04 Baso % (Auto) 0.3 % 05/24/24 13:04 Neut # (Auto) 7.11 10^3/uL (1.8-7.7) 05/24/24 13:04 Lymph # (Auto) 1.1 10^3/uL (0.8-4.8) 05/24/24 13:04 [place] # (Auto) 0.6 10^3/uL (0.2-0.9) 05/24/24 13:04 Eos # (Auto) 0.0 10^3/uL (0.0-0.8) 05/24/24 13:04 Baso # (Auto) 0.0 10^3/uL (0.0-0.1) 05/24/24 13:04 Nucleated RBC % (auto) 0 % 05/24/24 13:04 Nucleated RBCs # 0.0 /100WBC 05/24/24 13:04 Sodium 141 mmol/L (136-145) 05/24/24 13:04 Potassium 4.0 mmol/L (3.5-5.1) 05/24/24 13:04 Chloride 98 mmol/L (98-107) 05/24/24 13:04 Carbon Dioxide 28 mmol/L (22-29) 05/24/24 13:04 Anion Gap 19.0 (5-19) 05/24/24 13:04 BUN 13 mg/dL (6-20) 05/24/24 13:04 Creatinine 0.8 mg/dL (0.5-0.9) 05/24/24 13:04 GFR Calculation 73.7 mL/min (90-130) L 05/24/24 13:04 Glucose 119 mg/dL (65-115) H 05/24/24 13:04 Calculated Osmolality 293 mOsm/kg (285-295) 05/24/24 13:04 Calcium 9.0 mg/dL (8.5-10.5) 05/24/24 13:04 Magnesium 1.9 mg/dL (1.7-2.3) 05/24/24 13:04 Total Bilirubin 0.4 mg/dL (0.15-1.2) 05/24/24 13:04 AST 18 U/L (0-32) 05/24/24 13:04 ALT 23 U/L (0-33) 05/24/24 13:04 Alkaline Phosphatase 158 U/L (35-105) H 05/24/24 13:04 Troponin T Baseline < 6 ng/L (0-10) 05/24/24 13:04 Troponin T 120 Minute 6.00 ng/L (0-10) 05/24/24 14:57 Delta Troponin T 0.03342 ABS# (0-10) 05/24/24 14:57 NT-Pro-B Natriuret Pep 303 pg/mL (0-125) H 05/24/24 13:04 Total Protein 7.0 g/dL (6.6-8.7) 05/24/24 13:04 Albumin 4.4 g/dL (3.5-5.2) 05/24/24 13:04 Globulin 2.6 g/dL (1.3-4.6) 05/24/24 13:04 Coronavirus (PCR) Negative (Negative) 05/24/24 13:00 Influenza A (PCR) Negative (Negative) 05/24/24 13:00 Influenza Type B (PCR) Negative (Negative) 05/24/24 13:00 RSV (PCR) Negative (Negative) 05/24/24 13:00 All radiology interpretation(s) finalized by discharge Discharge Plan Discharge Patient Disposition: Home Clinical Impression: Asthma with COPD with exacerbation Condition: Stable Prescriptions: New prednisone 50 mg tablet 50 mg PO DAILY Qty: 5 0RF No Action nitroglycerin 0.4 mg tablet, sublingual 0.4 mg SUBLINGUAL Q5M PRN (Reason: chest pain) Qty: 25 6RF Rx Instructions: do not exceed 3 doses per episode cetirizine [Zyrtec] 10 mg tablet 10 mg PO QAM ipratropium-albuterol 0.5 mg-3 mg(2.5 mg base)/3 mL solution for nebulization 3 ml inhalation Q4H PRN (Reason: wheezing) Qty: 180 6RF epinephrine [EpiPen Jr 2-Guille] 0.15 mg/0.3 mL auto-injector 0.15 mg IM Q30M PRN (Reason: anaphylaxis) Qty: 2 1RF Yupelri 175 mcg/3 mL solution for nebulization See Rx Instructions .ROUTE .COMPLEX Qty: 30 11RF Dose Instruction: USE 1 VIAL IN NEBULIZER DAILY - DO NOT MIX WITH OTHER NEB MEDS, USE BEFORE OR AFTER Rx Instructions: USE 1 VIAL IN NEBULIZER DAILY - DO NOT MIX WITH OTHER NEB MEDS, USE BEFORE OR AFTER pantoprazole 40 mg tablet,delayed release (DR/EC) 40 mg PO BID Qty: 90 2RF Singulair 10 mg tablet 10 mg PO DAILY Qty: 90 1RF Xolair 150 mg/mL syringe 300 mg SUBCUT Q14D Qty: 2 12RF budesonide 0.5 mg/2 mL Suspension For Nebulization 0.5 mg inhalation BID PRN (Reason: Shortness Of Breath) fluoxetine 40 mg capsule 40 mg PO QAM trazodone 50 mg tablet 50 mg PO BEDTIME PRN (Reason: Sleep) Breztri Aerosphere 160-9-4.8 mcg/actuation HFA aerosol inhaler 2 inh INHALATION BID PRN (Reason: Shortness Of Breath) azelastine 137 mcg (0.1 %) spray,non-aerosol 1 spray INTRANASAL BID@0700,2200 PRN (Reason: Allergy Symptoms) potassium chloride 20 mEq tablet,ER particles/crystals 20 meq PO QAM Qty: 15 0RF furosemide 40 mg tablet 40 mg PO DAILY Qty: 30 0RF clopidogrel 75 mg tablet 75 mg PO DAILY spironolactone 25 mg tablet 25 mg PO DAILY verapamil 120 mg capsule,ext rel. pellets 24 hr 120 mg PO QPM rosuvastatin 40 mg tablet 40 mg PO BEDTIME aripiprazole 2 mg tablet 2 mg PO DAILY atorvastatin 80 mg tablet 80 mg PO QAM fluticasone propionate [Flonase Allergy Relief] 50 mcg/actuation spray,suspension 1 spray INTRANASAL BID@07,22 PRN (Reason: allergies) formoterol fumarate [Perforomist] 20 mcg/2 mL solution for nebulization 20 mcg inhalation Q12H PRN (Reason: Shortness Of Breath) Discharge Orders: Discharge ED (Routine); Ordered 05/24/24 Ordered By: Jw Lake Referrals: Lauri Krishnan MD [Primary Care Provider] - 1 week Patient Instructions: COPD (Chronic Obstructive Pulmonary Disease) (ED) Activity Restrictions/Additional Instructions: Thank you for choosing [facility] for your healthcare needs today. Please realize that you were seen in the emergency department and that we are providing you with an emergency medical screening exam and this may not be a complete and all exclusive of all testing and/or medical workup we may need to determine your element or severity of your illness. It is very important that you follow-up as instructed with your primary care provider or specialist for the additional evaluation and to discuss your medical treatment plan. You may return to the emergency department should you have concerns or if your condition changes or worsens in any way. Coding Level of Care Code ED Director Biomedical Engineering for Gracie Laguna
[2024-05-24 13:13] LABS: Basophils % 0.3 %; Eosinophils % 0.1 %; Lymphocytes # 1.1 10^3/uL (0.8-4.8); Mean Corpuscular HGB Conc 32.6 g/dL (30-55); Mean Corpuscular Hemoglobin 29.1 pg (27-33); Mean Corpuscular Volume 89.4 fl (85-98); Mean Platelet Volume 10.1 fL (7.4-10.4); Monocytes # 0.6 10^3/uL (0.2-0.9); Monocytes % 6.4 %; Neutrophils # 7.11 10^3/uL (1.8-7.7); Neutrophils % 80.2 %; Nucleated Red Blood Cells % 0 %; Platelet Count 328 10^3/cmm (157-399); Red Blood Count 4.81 10^6/uL (3.85-5.65); Red Cell Distribution Width 15.3 % (12.1-15.1); White Blood Count 8.88 10^3/uL (3.29-11.43)
[2024-05-24] MEDS: ipratropium-albuterol 3 mL Neb INHALATION (13:21)
--- NOTE | 2024-05-24 13:24 | ECG_ITS ---
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1965 Requested By: Jw Lake Order Number: [id number] Apoorva MD: HERMAN COBOS Measurements Intervals [place] Rate: 103 P: 77 DE: 139 QRS: 96 QRSD: 86 T: 81 QT: 351 QTc: 461 Interpretive Statements SINUS TACHYCARDIA POSSIBLE LEFT ATRIAL ENLARGEMENT [-0.1mV P-WAVE IN V1/V2] BORDERLINE RIGHT AXIS DEVIATION [QRS AXIS > 90] ABNORMAL RHYTHM ECG Compared to ECG 05/11/2024 08:59:47 Sinus rhythm no longer present Electronically Signed On 05-25-2024 19:25:30 COMPLIANCE ASSOCIATE by HERMAN COBOS [id number]
[2024-05-24 13:37] LABS: Troponin(5th) Baseline < 6 ng/L (0-10)
[2024-05-24 13:42] LABS: Alanine Aminotransferase 23 U/L (0-33); Albumin Level 4.4 g/dL (3.5-5.2); Alkaline Phosphatase 158 U/L (35-105); Aspartate Amino Transferase 18 U/L (0-32); Blood Urea Nitrogen 13 mg/dL (6-20); Carbon Dioxide 28 mmol/L (22-29); Chloride 98 mmol/L (98-107); Creatinine Clr Calc Pharmacy 74.8428; Globulin 2.6 g/dL (1.3-4.6); Glomerular Filtration Rate 73.7 mL/min (90-130); Glucose 119 mg/dL (65-115); Magnesium 1.9 mg/dL (1.7-2.3); NT Pro B Type Natriuretic Pept 303 pg/mL (0-125); Osmolality Calculated 293 mOsm/kg (285-295); Sodium 141 mmol/L (136-145); Total Bilirubin 0.4 mg/dL (0.15-1.2)
[2024-05-24 13:55] LABS: Covid PCR NEGATIVE (Negative); Influenza A NEGATIVE (Negative); Influenza B NEGATIVE (Negative); Respiratory Syncytial Virus Ce NEGATIVE (Negative)
--- NOTE | 2024-05-24 14:51 | ECG_ITS ---
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: : 1965 Requested By: Jw Lake Order Number: [id number] Apoorva MD: HERMAN COBOS Measurements Intervals [place] Rate: 86 P: 81 DE: 147 QRS: 92 QRSD: 77 T: 84 QT: 379 QTc: 456 Interpretive Statements SINUS RHYTHM POSSIBLE LEFT ATRIAL ENLARGEMENT [-0.1mV P-WAVE IN V1/V2] BORDERLINE RIGHT AXIS DEVIATION [QRS AXIS > 90] Compared to ECG 05/24/2024 13:24:00 Sinus tachycardia no longer present Electronically Signed On 05-25-2024 19:30:28 TRAVELING SALES REPRESENTATIVE by HERMAN COBOS [id number]
[2024-05-24 15:30] LABS: Troponin 5 2HR Delta 0.00001 ABS# (0-10)
== END 2024-05-24 16:57 | disposition home or self-care (01) ==
PROVIDERS: Emergency Provider Emergency Medicine; PCP Family Medicine
DX: J44.1 Chronic obstructive pulmonary disease with (acute) exacerbation (principal); Z79.02 Long term (current) use of antithrombotics/antiplatelets; Z87.891 Personal history of nicotine dependence; E78.5 Hyperlipidemia, unspecified; I25.10 Atherosclerotic heart disease of native coronary artery without angina pectoris; I10 Essential (primary) hypertension
CPT/HCPCS: 0241U; 36415; 71045; 80053; 83735; 83880; 84484; 85025; 93005; 94640; 96374; 99285; J2919

== ENCOUNTER 2024-07-17 10:04 | Inpatient (IN) | payer MEDICARE, MEDICAID, SELFPAY ==
[2024-07-17] VITALS (17 sets, daily range): BP systolic 83–117; BP diastolic 45–78; PULSE 76–108; RESP 15–30; TEMP 36.4–36.8; O2SAT 89–95; BMI 27.4; BMI 27.1
--- NOTE | 2024-07-17 10:08 | ECG_ITS ---
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
--- NOTE | 2024-07-17 10:14 | XR_ITS ---
WS: [id number] XR chest 1V portable [id number] REASON FOR EXAM: dyspnea FINDINGS: The chest is unchanged compared to 05/24/2024. Mild tortuosity of the thoracic aorta. Normal heart size. Calcified granulomas disease in both hemithoraces. Mild hyperexpansion with mild flattening of the hemidiaphragms. No acute pulmonary parenchymal or pleural abnormality. Mild degenerative spondylosis in the thoracic spine. XR/XR chest 1V portable [id number] IMPRESSION: Stable chest with mild hyperexpansion. No acute chest abnormality.
--- NOTE | 2024-07-17 10:15 | ED_ITS ---
HPI - SOB/Dyspnea 2 General: Chief Complaint: Shortness of Breath/Dyspnea Stated Complaint: sob Time Seen by Provider: 07/17/24 10:08 History of Present Illness: HPI Narrative: Chief complaint shortness of breath. Patient states she has a history of COPD. She does have a history of cardiac disease as well. She is not having any chest pain but states that she has pressure to breathe. No history of PE or DVT. No recent immobility or leg pain or swelling. No new cough. No hemoptysis. She states that about a month ago she had low energy body aches and laid in bed for about a week but she has been feeling better but then the shortness of breath and increased wheezing kicked in the last few days. She states she has had similar symptoms with her COPD before. She has pressure to breathe. No abdominal pain vomiting or diarrhea. Related Data Home Medications Medication Instructions Recorded Confirmed cetirizine 10 mg tablet (Zyrtec) 10 mg PO QAM 01/03/23 07/17/24 fluoxetine 40 mg capsule 40 mg PO QAM 01/04/23 07/17/24 trazodone 50 mg tablet 50 mg PO BEDTIME PRN Sleep 01/04/23 07/17/24 azelastine 137 mcg (0.1 %) nasal 1 spray intranasal BID@0700,2200 05/09/24 07/17/24 spray PRN Allergy Symptoms aripiprazole 2 mg tablet 2 mg PO DAILY 05/24/24 07/17/24 atorvastatin 80 mg tablet 80 mg PO QAM 05/24/24 07/17/24 clopidogrel 75 mg tablet 75 mg PO DAILY 05/24/24 07/17/24 fluticasone propionate 50 1 spray intranasal BID@07,22 PRN 05/24/24 07/17/24 mcg/actuation nasal allergies spray,suspension (Flonase Allergy Relief) formoterol fumarate 20 mcg/2 mL 20 mcg inhalation Q12H PRN 05/24/24 07/17/24 solution for nebulization Shortness Of Breath (Perforomist) rosuvastatin 40 mg tablet 40 mg PO BEDTIME 05/24/24 07/17/24 spironolactone 25 mg tablet 25 mg PO DAILY 05/24/24 07/17/24 Previous Rx's Medication Instructions Recorded nitroglycerin 0.4 mg sublingual 0.4 mg sublingual Q5M PRN chest 06/21/22 tablet pain #25 tabs pantoprazole 40 mg tablet,delayed 40 mg PO BID #90 tabs 08/13/22 release montelukast 10 mg tablet 10 mg PO DAILY #90 tabs 08/31/22 (Singulair) ipratropium 0.5 mg-albuterol 3 mg 3 ml inhalation Q4H PRN wheezing 07/18/23 (2.5 mg base)/3 mL nebulization #180 mL soln omalizumab 150 mg/mL subcutaneous 300 mg (2 mL) SUBCUT Q14D #2 mL 12/24/23 syringe (Xolair) furosemide 40 mg tablet 40 mg PO DAILY #30 tabs 05/12/24 potassium chloride 20 mEq 20 meq PO QAM #15 tabs 05/12/24 tablet,extended release(part/cryst) Allergies Allergy/AdvReac Type Severity Reaction Status Date / Time doxycycline Allergy Intermediate ALGY-Hives Verified 07/17/24 09:46 Iodinated Contrast Media Allergy Intermediate ALGY-Hives Verified 07/17/24 09:46 codeine Allergy Unknown Unknown Verified 07/17/24 09:46 Sulfa (Sulfonamide Allergy Unknown Unknown Verified 07/17/24 09:46 Antibiotics) gabapentin Allergy Unknown Verified 07/17/24 09:46 PFSH ED 2 PFSH: Medical History Disorders of diaphragm Nicotine addiction CAD (coronary artery disease) (~12/2019) -Known history of CAD with recent stenting of LAD due to anterior wall STEMI in December -Follows up with Dr. Salcedo; f/u in [address] Bsas Essential (primary) hypertension -VSS; continue to monitor -continue oral antihypertensives Hypomagnesemia Hypokalemia Encounter for chronic pain management Diastolic congestive heart failure Shortness of breath Severe persistent asthma Closed fracture distal radius and ulna Insomnia Hyperlipidemia Smokers' cough Acute exacerbation of CHF (congestive heart failure) Normocytic anemia -Seems to have intermittent normocytic anemia with a baseline hemoglobin of about 10-11, intermittently normal -Has been on dual antiplatelet therapy given recent stenting -Continue to monitor H&H closely; stable so far -iron and ferritin low; start on iron replacement Asthma -severe persistent, started xolair 02/04/2020 -follow up with Dr. West New onset of congestive heart failure -Could be secondary to recent STEMI requiring intervention with stenting of LAD last month -Echo: EF=57%, normal systolic and diastolic function, no RWMA, trace [place], trace [place] -has been on IV diuresis with Lasix; switched to oral lasix -Continue to monitor electrolytes and renal function -Daily weights, monitor ins and outs -BNP elevated at 948 -Chest x-ray reported as unremarkable -Close monitoring of respiratory status, supplemental oxygen as needed Methadone maintenance therapy patient Acute anterior wall [place] Chronic post-traumatic stress disorder Generalized anxiety disorder Major depressive disorder, recurrent severe without psychotic features Chronic radicular lumbar pain Herniated disc Sleep apnea, unspecified Lesion of ulnar nerve, bilateral COPD (chronic obstructive pulmonary disease) -no acute exacerbation -does not appear to be oxygen dependent at baseline -recently restarted smoking, 1/2 PPD KRISTOFER on CPAP GERD (gastroesophageal reflux disease) -on PPI Surgical History H/O oral surgery S/P section Presence of stent in LAD coronary artery (01/23/20) H/O bilateral oophorectomy History of cholecystectomy History of carpal tunnel release H/O skin graft Family History Father Myocardial infarct, Onset Age: 45 Brother Myocardial infarct, Onset Age: 53 Other CAD (coronary artery disease) Closed fracture distal radius and ulna Social History Smoking and tobacco/nicotine status: former use of tobacco/nicotine Quit status (tobacco/nicotine): has quit using Year quit tobacco: 2019 - 1PPD x 30 Years Second hand smoke exposure: Yes Alcohol intake: former Substance/Drug Use: never Lives independently: Yes Household members: family Marital status: Current occupational status: disabled Do you think of yourself as: Straight/Heterosexual Current gender identity: Female Physical Exam 2 Narrative: EXAM NARRATIVE: Patient is alert and in moderate distress with dyspnea and some mild accessory muscle use. She has prolonged expiratory phase with diminished breath sounds bilaterally with bilateral expiratory wheezing. She has some mild retractions. Her neck is supple. Normocephalic. No JVD. Moist mucous membranes. Heart regular rhythm. Abdomen soft nontender. Extremities are warm well-perfused. No calf tenderness or pitting edema. Speech is clear. No facial droop. She moves her arms and legs freely. No visible rash. Pupils are equal reactive to light and full range ocular motion and normal conjunctive Course 2 Vital Signs: Vital signs: Vital Signs Temperature 97.5 F L 07/17/24 15:47 Pulse Rate 90 07/17/24 15:53 Respiratory Rate 20 H 07/17/24 15:53 Blood Pressure 103/71 07/17/24 15:47 Pulse Oximetry 93 07/17/24 15:53 Oxygen Delivery Me thod Nasal Cannula 07/17/24 15:55 Oxygen Flow Rate 4 07/17/24 15:55 MDM - SOB/Dyspnea Medical Decision Making Patient presents complaining of increased shortness of breath and findings on exam and history most consistent with COPD exacerbation. Patient is coughing frequently in the room has prolonged expiratory phase and diminished breath sounds bilaterally. I ordered Solu-Medrol 125 mg IV, and DuoNeb and albuterol 5 mg nebulized treatment for her COPD exacerbation. PE, SC, anemia, cardiac dysrhythmia, pneumonia, viral bronchitis, broad differential. I ordered CBC CMP proBNP D-dimer troponin and EKG. CHF exacerbation also considered though less likely. Patient is doing much better. She is sitting up on the side of the bed. D- dimer is elevated however. She states she has an allergy to IV dye however she states with premedication she does fine. She is already received Solu-Medrol. I added 25 mg of Benadryl IV. She agrees with proceeding to CT. Patient's white count returned normal. Potassium was low so I ordered 40 mill equivalents of potassium orally. Creatinine is 1. Troponin and proBNP are negative. CT angio of the chest negative for acute process however patient continues to require increased oxygen. She is only 91% on 4 L nasal cannula and she is normally on 2 L at home. I turned her down to her baseline 2 L nasal cannula and she becomes dyspneic again with increased work of breathing with just minimal activity. Patient feels that she is not going to be able to manage at home and with her increased oxygen requirement I consulted Dr. Hoffman who will admit. Lab Data 07/17/24 10:10 07/17/24 10:10 Labs/Radiology: Radiology Impressions Chest X-Ray 07/17/24 10:14 IMPRESSION: Stable chest with mild hyperexpansion. No acute chest abnormality. Chest CTA 07/17/24 11:12 IMPRESSION: 1. No evidence of pulmonary embolus. 2. Chronic emphysematous changes. 3. No focal pneumonia. 4. Slight tree in bud nodularity more prominent in the lower lobes likely inflammatory. 5. Moderate esophageal hernia. Laboratory Results WBC 8.71 10^3/uL (3.29-11.43) 07/17/24 10:10 RBC 4.62 10^6/uL (3.85-5.65) 07/17/24 10:10 Hgb 13.30 g/dL (11.27-16.99) 07/17/24 10:10 Hct 40.3 % (36-47) 07/17/24 10:10 MCV 87.2 fl (85-98) 07/17/24 10:10 MCH 28.8 pg (27-33) 07/17/24 10:10 MCHC 33.0 g/dL (30-55) 07/17/24 10:10 RDW 14.2 % (12.1-15.1) 07/17/24 10:10 Plt Count 486 10^3/cmm (157-399) H 07/17/24 10:10 MPV 10.7 fL (7.4-10.4) H 07/17/24 10:10 Neut % (Auto) 56.1 % 07/17/24 10:10 Lymph % (Auto) 31.3 % 07/17/24 10:10 [place] % (Auto) 7.5 % 07/17/24 10:10 Eos % (Auto) 3.3 % 07/17/24 10:10 Baso % (Auto) 1.1 % 07/17/24 10:10 Neut # (Auto) 4.88 10^3/uL (1.8-7.7) 07/17/24 10:10 Lymph # (Auto) 2.7 10^3/uL (0.8-4.8) 07/17/24 10:10 [place] # (Auto) 0.7 10^3/uL (0.2-0.9) 07/17/24 10:10 Eos # (Auto) 0.3 10^3/uL (0.0-0.8) 07/17/24 10:10 Baso # (Auto) 0.1 10^3/uL (0.0-0.1) 07/17/24 10:10 Nucleated RBC % (auto) 0 % 07/17/24 10:10 Nucleated RBCs # 0.0 /100WBC 07/17/24 10:10 D-Dimer 0.72 ug/mLFEU (0-0.59) H 07/17/24 10:10 Sodium 140 mmol/L (136-145) 07/17/24 10:10 Potassium 3.0 mmol/L (3.5-5.1) L 07/17/24 10:10 Chloride 98 mmol/L (98-107) 07/17/24 10:10 Carbon Dioxide 29 mmol/L (22-29) 07/17/24 10:10 Anion Gap 16.0 (5-19) 07/17/24 10:10 BUN 16 mg/dL (6-20) 07/17/24 10:10 Creatinine 1.0 mg/dL (0.5-0.9) H 07/17/24 10:10 GFR Calculation 56.7 mL/min (90-130) L 07/17/24 10:10 Glucose 86 mg/dL (65-115) 07/17/24 10:10 Calculated Osmolality 290 mOsm/kg (285-295) 07/17/24 10:10 Calcium 9.2 mg/dL (8.5-10.5) 07/17/24 10:10 Total Bilirubin 0.5 mg/dL (0.15-1.2) 07/17/24 10:10 AST 10 U/L (0-32) 07/17/24 10:10 ALT 7 U/L (0-33) 07/17/24 10:10 Alkaline Phosphatase 165 U/L (35-105) H 07/17/24 10:10 Troponin T Baseline < 6 ng/L (0-10) 07/17/24 10:10 Troponin T 120 Minute 6.00 ng/L (0-10) 07/17/24 12:23 Delta Troponin T 0.15419 ABS# (0-10) 07/17/24 12:23 C-Reactive Protein 3.0 mg/L (0.0-4.9) 07/17/24 12:23 NT-Pro-B Natriuret Pep 97 pg/mL (0-125) 07/17/24 10:10 Total Protein 7.3 g/dL (6.6-8.7) 07/17/24 10:10 Albumin 4.3 g/dL (3.5-5.2) 07/17/24 10:10 Globulin 3.0 g/dL (1.3-4.6) 07/17/24 10:10 Triglycerides 132 mg/dL (0-150) 07/17/24 10:10 Cholesterol 125 mg/dL (0-200) 07/17/24 10:10 LDL Cholesterol, Calc 50 mg/dL (50-129) 07/17/24 10:10 HDL Cholesterol 49 mg/dL (60-100) L 07/17/24 10:10 LDL/HDL Ratio 1.02 RATIO (0.00-3.22) 07/17/24 10:10 Cholesterol/HDL Ratio 2.55 mg/dL (0.0-4.40) 07/17/24 10:10 Procalcitonin 0.02 ng/mL (0-0.5) 07/17/24 12:23 TSH 1.28 uIU/mL (0.27-4.20) 07/17/24 10:10 Coronavirus (PCR) Negative (Negative) 07/17/24 11:17 Influenza A (PCR) Negative (Negative) 07/17/24 11:17 Influenza Type B (PCR) Negative (Negative) 07/17/24 11:17 RSV (PCR) Negative (Negative) 07/17/24 11:17 All radiology interpretation(s) finalized by discharge Discharge Plan Discharge Patient Disposition: Placed in Observation Admit Provider: Vinny Rodriguez Clinical Impression: Acute exacerbation of chronic obstructive airways disease, Acute and chronic respiratory failure ([id number]) Coding Level of Care Code ED Flowers Salesperson for Gracie Laguna
[2024-07-17 10:33] LABS: Basophils # 0.1 10^3/uL (0.0-0.1); Basophils % 1.1 %; Eosinophils # 0.3 10^3/uL (0.0-0.8); Eosinophils % 3.3 %; Hematocrit 40.3 % (36-47); Lymphocytes # 2.7 10^3/uL (0.8-4.8); Lymphocytes % 31.3 %; Mean Corpuscular Hemoglobin 28.8 pg (27-33); Mean Corpuscular Volume 87.2 fl (85-98); Mean Platelet Volume 10.7 fL (7.4-10.4); Monocytes # 0.7 10^3/uL (0.2-0.9); Monocytes % 7.5 %; Neutrophils # 4.88 10^3/uL (1.8-7.7); Neutrophils % 56.1 %; Nucleated Red Blood Cells % 0 %; Platelet Count 486 10^3/cmm (157-399); Red Blood Count 4.62 10^6/uL (3.85-5.65); Red Cell Distribution Width 14.2 % (12.1-15.1); White Blood Count 8.71 10^3/uL (3.29-11.43)
[2024-07-17 10:41] LABS: D Dimer 0.72 ug/mLFEU (0-0.59)
[2024-07-17 10:47] LABS: Troponin(5th) Baseline < 6 ng/L (0-10)
[2024-07-17] MEDS: ipratropium-albuterol 3 mL Neb INHALATION ×4 (10:52→21:48)
[2024-07-17] MEDS: albuterol 2.5 mg/3 mL Neb 5 MG INHALATION ×2 (10:52→12:48)
[2024-07-17 10:57] LABS: Alanine Aminotransferase 7 U/L (0-33); Albumin Level 4.3 g/dL (3.5-5.2); Alkaline Phosphatase 165 U/L (35-105); Aspartate Amino Transferase 10 U/L (0-32); Blood Urea Nitrogen 16 mg/dL (6-20); Calcium 9.2 mg/dL (8.5-10.5); Carbon Dioxide 29 mmol/L (22-29); Chloride 98 mmol/L (98-107); Creatinine Clr Calc Pharmacy 59.1441; Glomerular Filtration Rate 56.7 mL/min (90-130); Glucose 86 mg/dL (65-115); NT Pro B Type Natriuretic Pept 97 pg/mL (0-125); Osmolality Calculated 290 mOsm/kg (285-295); Sodium 140 mmol/L (136-145); Total Bilirubin 0.5 mg/dL (0.15-1.2); Total Protein 7.3 g/dL (6.6-8.7)
--- NOTE | 2024-07-17 11:12 | CT_ITS ---
WS: [id number] CTA OF THE CHEST WITH PULMONARY EMBOLISM PROTOCOL TECHNIQUE: High-resolution contrast enhanced CTA of the chest with coronal and sagittal reformatted i mages with pulmonary embolism protocol. MIP images are also reviewed. CLINICAL INFORMATION: dyspnea, chest pain COMPARISON: CT chest 05/11/2024 DLP: 327.[address] scans at [facility] use at least one of these dose optimization techniques: automated e xposure control; mA and/or kV adjustment per patient size (includes targeted exams where dose is matc hed to clinical indication); or iterative reconstruction. FINDINGS: Chronic emphysematous changes. Proximal pulmonary arteries are normal. Normal segmental and subsegmental pulmonary arteries. No evidence of pulmonary embolus. No focal pneu monia or pleural fluid. Tree-in-bud nodularity more prominent in the lower lobes likely inflammatory. Normal caliber thoracic aorta. No mediastinal or hilar lymphadenopathy. No axillary lymphadenopathy. Adrenal glands are normal. Cholecystectomy clips. Moderate esophageal hiatal hernia. Few calcified gr anulomas. CT/CT angio chest PE protcl [id number] IMPRESSION: 1. No evidence of pulmonary embolus. 2. Chronic emphysematous changes. 3. No focal pneumonia. 4. Slight tree in bud nodularity more prominent in the lower lobes likely infl ammatory. 5. Moderate esophageal hernia.
[2024-07-17] MEDS: methylPREDNISolone sod succ 125 mg/2 mL INJ IV (11:16)
[2024-07-17] MEDS: potassium chloride oral liq 20 mEq/15 mL UDC 40 MEQ PO (11:19)
--- NOTE | 2024-07-17 11:25 | PC.NURSE ---
POTASSIUM 20MEQ WASTED DUE TO SPILL. PATIENT WAS ADMINISTERED 40 MEQ TOTAL.
[2024-07-17] MEDS: diphenhydrAMINE 50 mg/mL SDV 1mL 25 MG IVP (11:44)
[2024-07-17 12:10] LABS: Covid PCR NEGATIVE (Negative); Influenza A NEGATIVE (Negative); Influenza B NEGATIVE (Negative); Respiratory Syncytial Virus Ce NEGATIVE (Negative)
[2024-07-17] MEDS: iohexol 350 mg/mL 500 mL Btl (per mL) IV (12:19)
[2024-07-17 12:53] LABS: Troponin 5 2HR Delta 0.00001 ABS# (0-10)
[2024-07-17 13:51] LABS: ABG PCO2 39.6 mmHg (35-45); ABG PH Result 7.43 (7.35-7.45); Alveolar-Arterial Oxygen Gradi 19.9 mmHg (5-10); Arterial Blood Gas Hematocrit 39.8 % (37-47); Base Excess ABG 1.6 mmol/L (-2.0-2.0); Blood Gas Allen Test Pos; Blood Gas Operator Identificat CAK; Blood Gas Sample Site Brachial, left; Blood Gas Sample Type Arterial; Carboxyhemoglobin 0.9 %THgb (0.4-20.1); HCO3 ABG 26.1 mmol/L (22-26); HGB O2 Sat 83.9 % (95-100); Ionized Calcium Level - ABG 1.2 mmol/L (1.1-1.4); Oxygen Device NC; Oxygen Saturation ABG 85.6; PO2 ABG 51.8 mmHg (80.0-100.0); PO2 FiO2 Ratio Arterial Blood 143; Potassium Level - ABG 3.1 mmol/L (3.5-5.0)
--- NOTE | 2024-07-17 13:51 | P.HP_ITS ---
Providers/Chief Complaint 2 Primary Care Provider: Lauri Krishnan MD Chief Complaint: sob History of Present Illness Nhung Leone is a 59 year old female with a past medical history of asthma, COPD, diastolic CHF, hypertension, who presents [facility] with shortness of breath and a sensation of pressure on the chest. The patient reports a dry cough but denies recent fever. She has a history of COPD but does not use a CPAP or BiPAP machine. The patient recently traveled to [place] for [place], denies any calf pain, no calf swelling, hemoptysis. She denies smoking and has no history of blood clots. The patient reports chest discomfort described as a feeling of pressure, more of a tightness social show shortness of breath. Oxygen levels are low, requiring up to four liters of oxygen. No fevers, chills, no nausea, no vomiting, no abdominal pain Review of Systems 2 Const: Reports: fatigue and malaise; Denies: fever(s) or chills Card: Reports: chest pain Resp: Reports: dyspnea Medications/Allergies Home Medications Medication Instructions Recorded Confirmed Last Taken Type nitroglycerin 0.4 mg sublingual 0.4 mg sublingual Q5M PRN chest 06/21/22 07/17/24 Unknown Rx tablet pain #25 tabs pantoprazole 40 mg tablet,delayed 40 mg PO BID #90 tabs 08/13/22 07/17/24 07/17/24 Rx release montelukast 10 mg tablet 10 mg PO DAILY #90 tabs 08/31/22 07/17/24 07/17/24 Rx (Singulair) cetirizine 10 mg tablet (Zyrtec) 10 mg PO QAM 01/03/23 07/17/24 07/17/24 History fluoxetine 40 mg capsule 40 mg PO QAM 01/04/23 07/17/24 07/17/24 History trazodone 50 mg tablet 50 mg PO BEDTIME PRN Sleep 01/04/23 07/17/24 Unknown History ipratropium 0.5 mg-albuterol 3 mg 3 ml inhalation Q4H PRN wheezing 07/18/23 07/17/24 09/16/23 Rx (2.5 mg base)/3 mL nebulization #180 mL soln omalizumab 150 mg/mL subcutaneous 300 mg (2 mL) SUBCUT Q14D #2 mL 12/24/23 07/17/24 07/07/24 Rx syringe (Xolair) azelastine 137 mcg (0.1 %) nasal 1 spray intranasal BID@0700,2200 05/09/24 07/17/24 Unknown History spray PRN Allergy Symptoms furosemide 40 mg tablet 40 mg PO DAILY #30 tabs 05/12/24 07/17/24 07/17/24 Rx potassium chloride 20 mEq 20 meq PO QAM #15 tabs 05/12/24 07/17/24 07/17/24 Rx tablet,extended release(part/cryst) aripiprazole 2 mg tablet 2 mg PO DAILY 05/24/24 07/17/24 07/17/24 History atorvastatin 80 mg tablet 80 mg PO QAM 05/24/24 07/17/24 07/17/24 History clopidogrel 75 mg tablet 75 mg PO DAILY 05/24/24 07/17/24 07/17/24 History fluticasone propionate 50 1 spray intranasal BID@ PRN 05/24/24 07/17/24 Unknown History mcg/actuation nasal allergies spray,suspension (Flonase Allergy Relief) formoterol fumarate 20 mcg/2 mL 20 mcg inhalation Q12H PRN 05/24/24 07/17/24 Unknown History solution for nebulization Shortness Of Breath (Perforomist) rosuvastatin 40 mg tablet 40 mg PO BEDTIME 05/24/24 07/17/24 07/16/24 History spironolactone 25 mg tablet 25 mg PO DAILY 05/24/24 07/17/24 07/17/24 History Allergies Allergy/AdvReac Type Severity Reaction Status Date / Time doxycycline Allergy Intermediate ALGY-Hives Verified 07/17/24 09:46 Iodinated Contrast Media Allergy Intermediate ALGY-Hives Verified 07/17/24 09:46 codeine Allergy Unknown Unknown Verified 07/17/24 09:46 Sulfa (Sulfonamide Allergy Unknown Unknown Verified 07/17/24 09:46 Antibiotics) gabapentin Allergy Unknown Verified 07/17/24 09:46 PFSH Acute 2 PFSH: Medical History Disorders of diaphragm Nicotine addiction CAD (coronary artery disease) (~12/2019) -Known history of CAD with recent stenting of LAD due to anterior wall STEMI in December -Follows up with Dr. Salcedo; f/u in [address] Bass Essential (primary) hypertension -VSS; continue to monitor -continue oral antihypertensives Hypomagnesemia Hypokalemia Encounter for chronic pain management Diastolic congestive heart failure Shortness of breath Severe persistent asthma Closed fracture distal radius and ulna Insomnia Hyperlipidemia Smokers' cough Acute exacerbation of CHF (congestive heart failure) Normocytic anemia -Seems to have intermittent normocytic anemia with a baseline hemoglobin of about 10-11, intermittently normal -Has been on dual antiplatelet therapy given recent stenting -Continue to monitor H&H closely; stable so far -iron and ferritin low; start on iron replacement Asthma -severe persistent, started xolair 02/04/2020 -follow up with Dr. West New onset of congestive heart failure -Could be secondary to recent STEMI requiring intervention with stenting of LAD last month -Echo: EF=57%, normal systolic and diastolic function, no RWMA, trace TR, trace [place] -has been on IV diuresis with Lasix; switched to oral lasix -Continue to monitor electrolytes and renal function -Daily weights, monitor ins and outs -BNP elevated at 948 -Chest x-ray reported as unremarkable -Close monitoring of respiratory status, supplemental oxygen as needed Methadone maintenance therapy patient Acute anterior wall [place] Chronic post-traumatic stress disorder Generalized anxiety disorder Major depressive disorder, recurrent severe without psychotic features Chronic radicular lumbar pain Herniated disc Sleep apnea, unspecified Lesion of ulnar nerve, bilateral COPD (chronic obstructive pulmonary disease) -no acute exacerbation -does not appear to be oxygen dependent at baseline -recently restarted smoking, 1/2 PPD KRISTOFER on CPAP GERD (gastroesophageal reflux disease) -on PPI Surgical History H/O oral surgery S/P section Presence of stent in LAD coronary artery (01/23/20) H/O bilateral oophorectomy History of cholecystectomy History of carpal tunnel release H/O skin graft Family History Father Myocardial infarct, Onset Age: 45 Brother Myocardial infarct, Onset Age: 53 Other CAD (coronary artery disease) Closed fracture distal radius and ulna Social History Smoking and tobacco/nicotine status: former use of tobacco/nicotine Quit status (tobacco/nicotine): has quit using Year quit tobacco: 2020 - 1PPD x 30 Years Second hand smoke exposure: Yes Alcohol intake: former Substance/Drug Use: never Lives independently: Yes Household members: family Marital status: Current occupational status: disabled Do you think of yourself as: Straight/Heterosexual Current gender identity: Female Vitals/I&O/Wt Last Vital Signs Temp 97.6 F 07/17/24 11:26 Pulse 91 07/17/24 12:49 Resp 18 07/17/24 12:49 BP 117/78 07/17/24 12:22 Pulse Ox 94 07/17/24 12:49 O2 Del Method Nasal Cannula 07/17/24 12:49 O2 Flow Rate 5 07/17/24 12:49 Weight last 48 hrs Weight 72.575 kg Physical Exam 2 Const: COMMON NORMALS: no acute distress and patient oriented x3 HENMT: COMMON NORMALS: normocephalic HEAD & SCALP: normocephalic Eye: COMMON NORMALS: Equal, round and reactive pupils present and EOMs intact bilaterally Neck/C-Spine: COMMON NORMALS: no JVD Resp: COMMON NORMALS: normal respiratory effort, No retractions and No use of accessory muscles AUSCULTATION: wheezes Cardio: COMMON NORMALS: regular rate, regular rhythm, S1 normal heart sound present and S2 normal heart sound present RATE: regular rate RHYTHM: r egular rhythm HEART SOUNDS: S1 normal heart sound present and S2 normal heart sound present GI: COMMON NORMALS: Normal to inspection, nondistended, normoactive bowel sounds present, Soft to palpation and non-tender PALPATION: Yes Soft to palpation and Yes No hepatosplenomegaly present Extremity: COMMON NORMALS: capillary refill normal, no calf tenderness and no pedal edema Neuro: COMMON NORMALS: patient oriented x3, CN's II-XII intact bilaterally and moves all extremities Psych: COMMON NORMALS: mental status grossly normal Data 07/17/24 10:10 07/17/24 10:10 A&P Assessment and plan (1) Acute hypoxic respiratory failure: (2) Acute exacerbation of chronic obstructive airways disease: (3) Pneumonia: (4) Chest pain: Qualifiers: Chest pain type: unspecified Qualified Code(s): R07.9 - Chest pain, unspecified Plan Acute Hypoxic Respiratory Failure: Secondary to asthma and COPD exacerbation, with concerns for underlying pneumonia. - Follow ABG - Follow sputum cultures - Follow blood cultures - crp, procal, abg - Administer solumedrol 125mg followed by 40 mg IV every 8 hours - Administer Rocephin - Administer Azithromycin - Administer duoneb, budesonide - Provide DVT prophylaxis Chest Pain: Pt reports chest discomfort described as pressure on the chest, no active chest pain -Serial EKGs, start troponins, telemetry monitoring - Continue Plavix, statin Diastolic CHF: Appears euvolemic. - Continue home diuretics Generalized Anxiety Disorder: Attestations 2 Medical Necessity Statement*: Patient requires hospitalization, inpatient, greater than 2 midnights for acute hypoxic respiratory failure secondary to COPD, pneumonia, chest pain and High MDM includes number and complexity of problems actively addressed during encounter, amount and/or complexity of data reviewed/ordered and described risk of complication, morbidity or mortality of management as documented Diagnoses Acute hypoxic respiratory failure J96.01 Acute exacerbation of chronic obstructive airways disease J44.1 Pneumonia J18.9 Chest pain R07.9 Chest pain type: unspecified
[2024-07-17 14:22] LABS: Procalcitonin 0.02 ng/mL (0-0.5)
[2024-07-17 14:43] LABS: Lactic Sepsis W/Reflex 2.2 mmol/L (0.5-2.2)
[2024-07-17 15:35] LABS: Chol HDL Ratio 2.55 mg/dL (0.0-4.40); Cholesterol 125 mg/dL (0-200); HDL Cholesterol 49 mg/dL (60-100); LDL Cholesterol Calculated 50 mg/dL (50-129); LDL HDL Ratio 1.02 RATIO (0.00-3.22); Thyroid Stimulating Hormone 1.28 uIU/mL (0.27-4.20); Triglycerides 132 mg/dL (0-150)
[2024-07-17] MEDS: enoxaparin 40 mg/0.4 mL Syringe SUBCUT (15:42)
[2024-07-17] MEDS: cefTRIAXone 1,000 mg SDV 1000 MG IVP (15:42)
[2024-07-17] MEDS: AZITHROMYCIN ADD-Vantage 500 MG in 0.9% NaCl ADD-Vantage 250 ML 250 MG IV (15:42)
[2024-07-17 16:10] LABS: Reflex Lactate Order REFLEX LACTIC ORDERD
[2024-07-17] MEDS: pantoprazole DR 40 mg Tablet PO (17:10)
[2024-07-17 17:42] LABS: Troponin 5 6HR Delta 0.00001 ng/L (0-12)
[2024-07-17 17:43] LABS: Lactic Acid level (Lactate) 2.6 mmol/L (0.5-2.2)
[2024-07-17] MEDS: trazodone 50 mg Tablet PO (20:41)
[2024-07-17] MEDS: budesonide 0.5 mg/2 mL Neb INHALATION (21:48)
[2024-07-18] VITALS (15 sets, daily range): BP systolic 80–116; BP diastolic 42–76; PULSE 74–115; RESP 15–19; TEMP 36.4–36.9; O2SAT 90–97
[2024-07-18] MEDS: sodium chloride 0.9% 1,000 ML 999 ML IV (00:16)
[2024-07-18] MEDS: midodrine 5 mg TABLET PO (01:19)
[2024-07-18 04:55] LABS: Basophils % 0.1 %; Hematocrit 33.5 % (36-47); Lymphocytes # 1.1 10^3/uL (0.8-4.8); Lymphocytes % 10.1 %; Mean Corpuscular HGB Conc 31.9 g/dL (30-55); Mean Corpuscular Hemoglobin 28.5 pg (27-33); Mean Corpuscular Volume 89.3 fl (85-98); Mean Platelet Volume 11.1 fL (7.4-10.4); Monocytes # 0.4 10^3/uL (0.2-0.9); Monocytes % 3.5 %; Neutrophils # 8.87 10^3/uL (1.8-7.7); Neutrophils % 85.4 %; Nucleated Red Blood Cells % 0 %; Platelet Count 380 10^3/cmm (157-399); Red Blood Count 3.75 10^6/uL (3.85-5.65); Red Cell Distribution Width 14.5 % (12.1-15.1); White Blood Count 10.38 10^3/uL (3.29-11.43)
[2024-07-18 05:17] LABS: Anion Gap 14.6 (5-19); Blood Urea Nitrogen 16 mg/dL (6-20); Calcium 8.9 mg/dL (8.5-10.5); Carbon Dioxide 25 mmol/L (22-29); Chloride 105 mmol/L (98-107); Creatinine Clr Calc Pharmacy 84.1194; Glomerular Filtration Rate 85.6 mL/min (90-130); Glucose 132 mg/dL (65-115); Osmolality Calculated 295 mOsm/kg (285-295); Potassium 3.6 mmol/L (3.5-5.1); Sodium 141 mmol/L (136-145)
[2024-07-18 05:28] LABS: NT Pro B Type Natriuretic Pept 348 pg/mL (0-125)
[2024-07-18] MEDS: atorvastatin 40 mg Tablet 80 MG PO (06:16)
[2024-07-18] MEDS: fluoxetine 20 mg Capsule 40 MG PO (06:16)
[2024-07-18] MEDS: cetirizine 10 mg Tablet PO (06:17)
[2024-07-18] MEDS: methylPREDNISolone sod succ 40 mg/mL INJ IVP ×3 (06:17→22:42)
[2024-07-18] MEDS: ARIPiprazole 2 mg Tablet PO (08:24)
[2024-07-18] MEDS: spironolactone 25 mg Tablet PO (08:25)
[2024-07-18] MEDS: pantoprazole DR 40 mg Tablet PO ×2 (08:25→17:18)
[2024-07-18] MEDS: montelukast sodium 10 mg Tablet PO (08:25)
[2024-07-18] MEDS: clopidogrel 75 mg Tablet PO (08:25)
[2024-07-18] MEDS: FUROsemide 40 mg Tablet PO (08:25)
[2024-07-18] MEDS: flu vacc pf 24-25 (6 mos+) SYRINGE 45 MCG IM (08:26)
[2024-07-18] MEDS: budesonide 0.5 mg/2 mL Neb INHALATION ×2 (08:45→20:22)
[2024-07-18] MEDS: ipratropium-albuterol 3 mL Neb INHALATION ×4 (08:45→20:22)
--- NOTE | 2024-07-18 11:05 | PC.CHAP ---
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 rotary drier visit [] Patient/Family/Request visit [] Outpatient visit [] Follow-up visit [] Physician referral [] Code/Alert [x] Routine visit [] Staff referral [] Actively dying [] Patient sleeping [] Family support [] [] Out of room [] Palliative care [] [] Receiving care in room [] Pre-surgical visit [] Trauma [] Long length of stay [] ICU visit [] Other: Relational/Emotional Strength [x] Patient feels connected with others/family/visitors/staff [] Distress [] Loneliness/isolation [] Abandonment Spirituality of Patient [x] Person of Shirlene [x] Attends [employer] of their [place]irl[place] [x] Believes in Prayer [] Reads Bible or Uatsdin materials [] There are Spiritual issues to be addressed Cash Clerk Interventions [x] Prayer [x] Active listening [x] Non-anxious presence [] Spiritual/emotional support [] Crisis/trauma care [] Spiritual counseling [] Bereavement support [] Provided bereavement packet [] Provided Bible/devotional materials [] Provided toy/stuffed animal, coloring book to patient or family member [] Provided Communion [] Anointing/[place] [] Salvation [] Completed spiritual assessment [] Other: Impact on Illness or Injury [] Angry [] Fearful [] Anxious [] Often cries [] Exhaustion [] Unable to work [] Unable to attend alevism [] Unable to walk/stand [] Unable to read [] Unable to drive [] Unable to eat/drink [] Unable to sleep [] Unable to be with family [] Patient intubated [] Other: Summary Prayer Time spent with patient 25
[2024-07-18] MEDS: enoxaparin 40 mg/0.4 mL Syringe SUBCUT (15:00)
[2024-07-18] MEDS: cefTRIAXone 1,000 mg SDV 1000 MG IVP (15:01)
[2024-07-18] MEDS: AZITHROMYCIN ADD-Vantage 500 MG in 0.9% NaCl ADD-Vantage 250 ML 250 MG IV (15:02)
--- NOTE | 2024-07-18 15:54 | P.PN_ITS ---
Subjective 2 Subjective: Patient was seen this morning, she complains of wheezing, shortness of breath, has a cough, no nausea, no vomiting, no chest pain Vitals/I&O/Wt Last Vital Signs Temp 98.2 F 07/18/24 12:00 Pulse 112 H 07/18/24 15:06 Resp 18 07/18/24 15:06 BP 116/76 07/18/24 12:00 Pulse Ox 92 07/18/24 15:06 O2 Del Method Nasal Cannula 07/18/24 15:06 O2 Flow Rate 2 07/18/24 15:06 07/18/24 07/18/24 07/18/24 06:59 14:59 22:59 Intake Total 682.65 / 1172.65 Balance 682.65 / 1172.65 Weight last 48 hrs Weight 75.931 kg Weight 71.894 kg Weight 72.575 kg Physical Exam 2 Const: COMMON NORMALS: no acute distress and patient oriented x3 Resp: COMMON NORMALS: normal respiratory effort, No retractions and No use of accessory muscles AUSCULTATION: crackles and wheezes Cardio: COMMON NORMALS: regular rate, regular rhythm, S1 normal heart sound present and S2 normal heart sound present RATE: regular rate RHYTHM: r egular rhythm HEART SOUNDS: S1 normal heart sound present and S2 normal heart sound present GI: COMMON NORMALS: Normal to inspection, nondistended, normoactive bowel sounds present and non-tender Extremity: COMMON NORMALS: no pedal edema Neuro: COMMON NORMALS: patient oriented x3 Psych: COMMON NORMALS: mental status grossly normal Data 07/18/24 04:11 07/18/24 04:11 Micro: Microbiology 07/17/24 17:12 Blood Culture - Preliminary Blood SPECIMEN COLLECTED 07/17/24 17:06 Blood Culture - Preliminary Blood SPECIMEN COLLECTED A&P Assessment and plan (1) Acute hypoxic respiratory failure: (2) Acute exacerbation of chronic obstructive airways disease: (3) Pneumonia: (4) Chest pain: Qualifiers: Chest pain type: unspecified Qualified Code(s): R07.9 - Chest pain, unspecified Plan Acute Hypoxic Respiratory Failure: Secondary to asthma and COPD exacerbation, with concerns for underlying pneumonia. - Follow ABG - Follow sputum cultures - Follow blood cultures - crp, procal, abg - Administer solumedrol 125mg followed by 40 mg IV every 8 hours - Administer Rocephin - Administer Azithromycin - Administer duoneb, budesonide - Provide DVT prophylaxis Chest Pain: Pt reports chest discomfort described as pressure on the chest, no active chest pain -Serial EKGs, start troponins, telemetry monitoring - Continue Plavix, statin Diastolic CHF: Appears euvolemic. - Continue home diuretics Generalized Anxiety Disorder: Attestations 2 Medical Necessity Statement*: Patient requires hospitalization for acute COPD exacerbation, pneumonia Diagnoses Acute hypoxic respiratory failure J96.01 Acute exacerbation of chronic obstructive airways disease J44.1 Pneumonia J18.9 Chest pain R07.9 Chest pain type: unspecified
[2024-07-18] MEDS: trazodone 50 mg Tablet PO (20:41)
[2024-07-19] VITALS (15 sets, daily range): BP systolic 97–116; BP diastolic 56–73; PULSE 58–103; RESP 16–20; TEMP 36.4–36.8; O2SAT 89–95
[2024-07-19 04:47] LABS: Basophils % 0.1 %; Hematocrit 30.9 % (36-47); Lymphocytes # 0.9 10^3/uL (0.8-4.8); Lymphocytes % 4.8 %; Mean Corpuscular HGB Conc 32.4 g/dL (30-55); Mean Corpuscular Hemoglobin 29.1 pg (27-33); Mean Corpuscular Volume 89.8 fl (85-98); Mean Platelet Volume 10.9 fL (7.4-10.4); Monocytes # 0.3 10^3/uL (0.2-0.9); Monocytes % 1.5 %; Neutrophils # 17.78 10^3/uL (1.8-7.7); Neutrophils % 92.6 %; Nucleated Red Blood Cells % 0 %; Platelet Count 350 10^3/cmm (157-399); Red Blood Count 3.44 10^6/uL (3.85-5.65)
[2024-07-19 05:17] LABS: Blood Urea Nitrogen 17 mg/dL (6-20); Calcium 9.1 mg/dL (8.5-10.5); Carbon Dioxide 25 mmol/L (22-29); Chloride 105 mmol/L (98-107); Creatinine Clr Calc Pharmacy 86.3253; Glomerular Filtration Rate 85.6 mL/min (90-130); Glucose 137 mg/dL (65-115); Osmolality Calculated 294 mOsm/kg (285-295); Sodium 140 mmol/L (136-145)
[2024-07-19 05:19] LABS: Anion Gap 13.9 (5-19); Potassium 3.9 mmol/L (3.5-5.1)
[2024-07-19] MEDS: methylPREDNISolone sod succ 40 mg/mL INJ IVP ×3 (06:11→22:12)
[2024-07-19] MEDS: fluoxetine 20 mg Capsule 40 MG PO (06:11)
[2024-07-19] MEDS: atorvastatin 40 mg Tablet 80 MG PO (06:11)
[2024-07-19] MEDS: cetirizine 10 mg Tablet PO (06:11)
--- NOTE | 2024-07-19 07:26 | PC.NURSE ---
received from Reanna YA
[2024-07-19] MEDS: ipratropium-albuterol 3 mL Neb INHALATION ×4 (07:28→20:59)
[2024-07-19] MEDS: budesonide 0.5 mg/2 mL Neb INHALATION ×2 (07:28→20:59)
[2024-07-19] MEDS: spironolactone 25 mg Tablet PO (08:47)
[2024-07-19] MEDS: pantoprazole DR 40 mg Tablet PO ×2 (08:47→17:51)
[2024-07-19] MEDS: montelukast sodium 10 mg Tablet PO (08:48)
[2024-07-19] MEDS: clopidogrel 75 mg Tablet PO (08:48)
[2024-07-19] MEDS: ARIPiprazole 2 mg Tablet PO (08:48)
[2024-07-19] MEDS: FUROsemide 40 mg Tablet PO (08:48)
[2024-07-19] MEDS: AZITHROMYCIN ADD-Vantage 500 MG in 0.9% NaCl ADD-Vantage 250 ML 250 MG IV (14:44)
[2024-07-19] MEDS: cefTRIAXone 1,000 mg SDV 1000 MG IVP (14:44)
[2024-07-19] MEDS: enoxaparin 40 mg/0.4 mL Syringe SUBCUT (14:45)
--- NOTE | 2024-07-19 16:05 | P.PN_ITS ---
Subjective 2 Subjective: Patient was seen this morning, alert oriented x 3, following all commands she reports shortness of breath with exertion and wheezing with exertion, has a cough Vitals/I&O/Wt Last Vital Signs Temp 97.8 F 07/19/24 12:00 Pulse 99 07/19/24 15:22 Resp 18 07/19/24 15:16 BP 116/73 07/19/24 12:00 Pulse Ox 89 L 07/19/24 15:16 O2 Del Method Nasal Cannula 07/19/24 15:16 O2 Flow Rate 2 07/19/24 15:16 07/19/24 07/19/24 07/19/24 06:59 14:59 22:59 Intake Total 1040 / 1040 Output Total 1000 / 1000 Balance 40 / 40 Weight last 48 hrs Weight 77.111 kg Weight 75.931 kg Physical Exam 2 Const: COMMON NORMALS: no acute distress and patient oriented x3 Resp: COMMON NORMALS: normal respiratory effort, No retractions and No use of accessory muscles AUSCULTATION: crackles and wheezes Cardio: COMMON NORMALS: regular rate, regular rhythm, S1 normal heart sound present and S2 normal heart sound present RATE: regular rate RHYTHM: r egular rhythm HEART SOUNDS: S1 normal heart sound present and S2 normal heart sound present GI: COMMON NORMALS: Normal to inspection, nondistended, normoactive bowel sounds present and non-tender Extremity: COMMON NORMALS: no pedal edema Neuro: COMMON NORMALS: patient oriented x3 Psych: COMMON NORMALS: mental status grossly normal Data 07/19/24 04:35 07/19/24 04:35 Micro: Microbiology 07/17/24 17:12 Blood Culture - Preliminary Blood NEGATIVE TO DATE 07/17/24 17:06 Blood Culture - Preliminary Blood NEGATIVE TO DATE A&P Assessment and plan (1) Acute hypoxic respiratory failure: (2) Acute exacerbation of chronic obstructive airways disease: (3) Pneumonia: (4) Chest pain: Qualifiers: Chest pain type: unspecified Qualified Code(s): R07.9 - Chest pain, unspecified Plan Acute Hypoxic Respiratory Failure: Secondary to asthma and COPD exacerbation, with concerns for underlying pneumonia. - Follow sputum cultures - Follow blood cultures - Administer solumedrol 40 mg IV every 8 hours - Administer Rocephin - Administer Azithromycin - Administer duoneb, budesonide - Provide DVT prophylaxis Chest Pain: Pt reports chest discomfort described as pressure on the chest, no active chest pain -, telemetry monitoring - Continue Plavix, statin Diastolic CHF: Appears euvolemic. - Continue home diuretics Generalized Anxiety Disorder: Attestations 2 Medical Necessity Statement*: Patient requires hospitalization for acute hypoxic respiratory failure secondary pneumonia, COPD Diagnoses Acute hypoxic respiratory failure J96.01 Acute exacerbation of chronic obstructive airways disease J44.1 Pneumonia J18.9 Chest pain R07.9 Chest pain type: unspecified
[2024-07-19] MEDS: trazodone 50 mg Tablet PO (20:18)
[2024-07-20 03:59] VITALS: BP 120/79; PULSE 92; RESP 24; TEMP 36.5; O2SAT 95
[2024-07-20 04:32] LABS: Basophils % 0.1 %; Hematocrit 32.5 % (36-47); Lymphocytes # 0.9 10^3/uL (0.8-4.8); Mean Corpuscular HGB Conc 31.4 g/dL (30-55); Mean Corpuscular Hemoglobin 28.5 pg (27-33); Mean Corpuscular Volume 90.8 fl (85-98); Mean Platelet Volume 11.3 fL (7.4-10.4); Monocytes # 0.4 10^3/uL (0.2-0.9); Monocytes % 2.1 %; Neutrophils # 16.51 10^3/uL (1.8-7.7); Neutrophils % 92.1 %; Nucleated Red Blood Cells % 0 %; Platelet Count 361 10^3/cmm (157-399); Red Blood Count 3.58 10^6/uL (3.85-5.65); Red Cell Distribution Width 15.1 % (12.1-15.1)
[2024-07-20 04:50] LABS: Blood Urea Nitrogen 20 mg/dL (6-20); Carbon Dioxide 28 mmol/L (22-29); Chloride 104 mmol/L (98-107); Creatinine Clr Calc Pharmacy 101.4651; Glomerular Filtration Rate 102.3 mL/min (90-130); Glucose 142 mg/dL (65-115); Osmolality Calculated 295 mOsm/kg (285-295); Sodium 140 mmol/L (136-145)
[2024-07-20 04:56] LABS: Anion Gap 12.1 (5-19); Potassium 4.1 mmol/L (3.5-5.1)
[2024-07-20 06:00] VITALS: PULSE 76
[2024-07-20] MEDS: cetirizine 10 mg Tablet PO (06:06)
[2024-07-20] MEDS: atorvastatin 40 mg Tablet 80 MG PO (06:06)
[2024-07-20] MEDS: methylPREDNISolone sod succ 40 mg/mL INJ IVP (06:07)
[2024-07-20] MEDS: fluoxetine 20 mg Capsule 40 MG PO (06:07)
[2024-07-20 07:16] VITALS: BP 115/74; PULSE 70; RESP 16; TEMP 36.5; O2SAT 92
[2024-07-20 08:00] VITALS: PULSE 75; RESP 20; O2SAT 92
[2024-07-20] MEDS: budesonide 0.5 mg/2 mL Neb INHALATION (08:11)
[2024-07-20] MEDS: ipratropium-albuterol 3 mL Neb INHALATION (08:11)
[2024-07-20] MEDS: FUROsemide 40 mg Tablet PO (08:51)
[2024-07-20] MEDS: ARIPiprazole 2 mg Tablet PO (08:51)
[2024-07-20] MEDS: montelukast sodium 10 mg Tablet PO (08:52)
[2024-07-20] MEDS: pantoprazole DR 40 mg Tablet PO (08:52)
[2024-07-20] MEDS: spironolactone 25 mg Tablet PO (08:52)
[2024-07-20] MEDS: clopidogrel 75 mg Tablet PO (08:52)
--- NOTE | 2024-07-20 10:50 | PM.DCS ---
Discharge Providers Date of Admission: 07/17/24 13:14 Date of Discharge: July 20, 2024 Attending Provider at Admission: Vinny Rodriguez MD Attending Provider at Discharge: Vinny Rodriguez MD Primary Care Provider: Lauri Krishnan MD Diagnoses at Discharge Discharge Diagnosis (1) Acute hypoxic respiratory failure: Status: Resolved (2) Acute exacerbation of chronic obstructive airways disease: Status: Inactive (3) Pneumonia: Status: Acute (4) Chest pain: Status: Resolved Qualifiers: Chest pain type: unspecified Qualified Code(s): R07.9 - Chest pain, unspecified Permanent problem details: -Appears to be atypical but per patient presentation is quite similar to what she had with STEMI -Troponins noted, no significant delta -Cardiology assessment by Dr. Bass appreciated -Continue aspirin, Plavix, statin, beta-aniket -Telemetry monitoring -VSS; continue to monitor Reason for Visit Reason for Visit: sob Hospital Course Hospital Course Nhung Leone is a 59 year old female with a past medical history of asthma, COPD, diastolic CHF, hypertension, who presents [facility] with shortness of breath and a sensation of pressure on the chest. The patient reports a dry cough but denies recent fever. She has a history of COPD but does not use a CPAP or BiPAP machine. The patient recently traveled to [place] for [place], denies any calf pain, no calf swelling, hemoptysis. She denies smoking and has no history of blood clots. The patient reports chest discomfort described as a feeling of pressure, more of a tightness social show shortness of breath. Oxygen levels are low, requiring up to four liters of oxygen. No fevers, chills, no nausea, no vomiting, no abdominal pain This is a 59-year-old female who presents [facility] for acute hypoxic respiratory failure secondary to asthma and COPD underlying pneumonia, received broad-spectrum antibiotic therapy, overall clinically improved, will be discharged on prednisone burst, antibiotics with close follow-up with primary care provider as outpatient. Patient did have chest discomfort initially, no recurrent chest pain, patient was advised if she has any recurrent chest pain to go to emergency room. Follow-up with cardiology as outpatient. Physical Exam Const: COMMON NORMALS: no acute distress and patient oriented x3 Resp: COMMON NORMALS: normal respiratory effort, No retractions, No use of accessory muscles and clear to auscultation bilaterally AUSCULTATION: clear to auscultation bilaterally Cardio: COMMON NORMALS: regular rate, regular rhythm, S1 normal heart sound present and S2 normal heart sound present RATE: regular rate RHYTHM: regular rhythm HEART SOUNDS: S1 normal heart sound present and S2 normal heart sound present GI: COMMON NORMALS: Normal to inspection, nondistended, normoactive bowel sounds present and non-tender Extremity: COMMON NORMALS: no pedal edema Neuro: COMMON NORMALS: patient oriented x3 Psych: COMMON NORMALS: mental status grossly normal Discharge Data Studies Completed and Pending Completed Studies During Hospitalization Category Date Time Status CTA chest [CT angio chest PE protcl [id number]] Stat Cat Scan 07/17/24 11:12 Completed XR chest 1V portable [id number] Stat Exams 07/17/24 10:14 Completed Pending at discharge Category Date Time Status Blood Culture Routine Lab 07/17/24 17:12 Results Sputum Culture and Gram Stain Stat Lab 07/17/24 13:49 Uncollected Radiology Impressions Chest X-Ray 07/17/24 10:14 IMPRESSION: Stable chest with mild hyperexpansion. No acute chest abnormality. Chest CTA 07/17/24 11:12 IMPRESSION: 1. No evidence of pulmonary embolus. 2. Chronic emphysematous changes. 3. No focal pneumonia. 4. Slight tree in bud nodularity more prominent in the lower lobes likely inflammatory. 5. Moderate esophageal hernia. Laboratory Results WBC 17.90 10^3/uL (3.29-11.43) H 07/20/24 04:12 RBC 3.58 10^6/uL (3.85-5.65) L 07/20/24 04:12 Hgb 10.20 g/dL (11.27-16.99) L 07/20/24 04:12 Hct 32.5 % (36-47) L 07/20/24 04:12 MCV 90.8 fl (85-98) 07/20/24 04:12 MCH 28.5 pg (27-33) 07/20/24 04:12 MCHC 31.4 g/dL (30-55) 07/20/24 04:12 RDW 15.1 % (12.1-15.1) 07/20/24 04:12 Plt Count 361 10^3/cmm (157-399) 07/20/24 04:12 MPV 11.3 fL (7.4-10.4) H 07/20/24 04:12 Neut % (Auto) 92.1 % 07/20/24 04:12 Lymph % (Auto) 5.0 % 07/20/24 04:12 [place] % (Auto) 2.1 % 07/20/24 04:12 Eos % (Auto) 0.0 % 07/20/24 04:12 Baso % (Auto) 0.1 % 07/20/24 04:12 Neut # (Auto) 16.51 10^3/uL (1.8-7.7) H 07/20/24 04:12 Lymph # (Auto) 0.9 10^3/uL (0.8-4.8) 07/20/24 04:12 [place] # (Auto) 0.4 10^3/uL (0.2-0.9) 07/20/24 04:12 Eos # (Auto) 0.0 10^3/uL (0.0-0.8) 07/20/24 04:12 Baso # (Auto) 0.0 10^3/uL (0.0-0.1) 07/20/24 04:12 Nucleated RBC % (auto) 0 % 07/20/24 04:12 Nucleated RBCs # 0.0 /100WBC 07/20/24 04:12 D-Dimer 0.72 ug/mLFEU (0-0.59) H 07/17/24 10:10 Specimen Type Arterial 07/17/24 13:40 Sample Site Brachial, left 07/17/24 13:40 ABG pH 7.43 (7.35-7.45) 07/17/24 13:40 ABG pCO2 39.6 mmHg (35-45) 07/17/24 13:40 ABG pO2 51.8 mmHg (80.0-100.0) L 07/17/24 13:40 ABG PO2/FiO2 Ratio 143 07/17/24 13:40 ABG HCO3 26.1 mmol/L (22-26) H 07/17/24 13:40 ABG O2 Saturation 85.6 07/17/24 13:40 ABG Base Excess 1.6 mmol/L (-2.0-2.0) 07/17/24 13:40 Alfredo Test Pos 07/17/24 13:40 A-a O2 Gradient 19.9 mmHg (5-10) H 07/17/24 13:40 Hematocrit 39.8 % (37-47) 07/17/24 13:40 Hgb O2 Saturation 83.9 % (95-100) L 07/17/24 13:40 Carboxyhemoglobin 0.9 %THgb (0.4-20.1) 07/17/24 13:40 Methemoglobin 1.0 % (0.4-1.5) 07/17/24 13:40 Total Hemoglobin 13.0 g/dL (12-16) 07/17/24 13:40 Sodium 144.0 mmol/L (131-143) H 07/17/24 13:40 Potassium 3.1 mmol/L (3.5-5.0) L 07/17/24 13:40 Glucose 117.0 mg/dL (70-115) H 07/17/24 13:40 Ionized Calcium 1.2 mmol/L (1.1-1.4) 07/17/24 13:40 O2 Delivery Device Nc 07/17/24 13:40 O2 Liters/Min 4.0 % 07/17/24 13:40 FiO2 36.0 % 07/17/24 13:40 Piping Designer ID Cak 07/17/24 13:40 Sodium 140 mmol/L (136-145) 07/20/24 04:12 Potassium 4.1 mmol/L (3.5-5.1) 07/20/24 04:12 Chloride 104 mmol/L (98-107) 07/20/24 04:12 Carbon Dioxide 28 mmol/L (22-29) 07/20/24 04:12 Anion Gap 12.1 (5-19) 07/20/24 04:12 BUN 20 mg/dL (6-20) 07/20/24 04:12 Creatinine 0.6 mg/dL (0.5-0.9) 07/20/24 04:12 GFR Calculation 102.3 mL/min (90-130) 07/20/24 04:12 Glucose 142 mg/dL (65-115) H 07/20/24 04:12 Calculated Osmolality 295 mOsm/kg (285-295) 07/20/24 04:12 Lactic Acid 2.2 mmol/L (0.5-2.2) 07/17/24 14:10 Lactic Acid (Sepsis) 2.6 mmol/L (0.5-2.2) H 07/17/24 17:06 Lactate 1.0 mmol/L (0.5-2.2) 07/18/24 04:11 Calcium 9.0 mg/dL (8.5-10.5) 07/20/24 04:12 Total Bilirubin 0.5 mg/dL (0.15-1.2) 07/17/24 10:10 AST 10 U/L (0-32) 07/17/24 10:10 ALT 7 U/L (0-33) 07/17/24 10:10 Alkaline Phosphatase 165 U/L (35-105) H 07/17/24 10:10 Troponin T Baseline < 6 ng/L (0-10) 07/17/24 10:10 Troponin T 120 Minute 6.00 ng/L (0-10) 07/17/24 12:23 Delta Troponin T 0.27535 ABS# (0-10) 07/17/24 12:23 Troponin T Hi Sens 6Hr 6.00 ng/L (0-10) 07/17/24 17:06 Troponin T Hi Sens 6Hr Delta 0.08606 ng/L (0-12) 07/17/24 17:06 C-Reactive Protein 3.0 mg/L (0.0-4.9) 07/17/24 12:23 NT-Pro-B Natriuret Pep 348 pg/mL (0-125) H 07/18/24 04:11 Total Protein 7.3 g/dL (6.6-8.7) 07/17/24 10:10 Albumin 4.3 g/dL (3.5-5.2) 07/17/24 10:10 Globulin 3.0 g/dL (1.3-4.6) 07/17/24 10:10 Triglycerides 132 mg/dL (0-150) 07/17/24 10:10 Cholesterol 125 mg/dL (0-200) 07/17/24 10:10 LDL Cholesterol, Calc 50 mg/dL (50-129) 07/17/24 10:10 HDL Cholesterol 49 mg/dL (60-100) L 07/17/24 10:10 LDL/HDL Ratio 1.02 RATIO (0.00-3.22) 07/17/24 10:10 Cholesterol/HDL Ratio 2.55 mg/dL (0.0-4.40) 07/17/24 10:10 Procalcitonin 0.02 ng/mL (0-0.5) 07/17/24 12:23 TSH 1.28 uIU/mL (0.27-4.20) 07/17/24 10:10 Coronavirus (PCR) Negative (Negative) 07/17/24 11:17 Influenza A (PCR) Negative (Negative) 07/17/24 11:17 Influenza Type B (PCR) Negative (Negative) 07/17/24 11:17 RSV (PCR) Negative (Negative) 07/17/24 11:17 Vitals Last Vital Signs Temp 97.7 F 07/20/24 07:16 Pulse 75 07/20/24 08:00 Resp 20 H 07/20/24 08:00 BP 115/74 07/20/24 07:16 Pulse Ox 92 07/20/24 08:00 O2 Del Method Nasal Cannula 07/20/24 08:00 O2 Flow Rate 2 07/20/24 08:00 Discharge Plan Discharge Patient Disposition: Home Condition: Stable Prescriptions: New amoxicillin-pot clavulanate 875-125 mg tablet 1 tab PO BID 5 Days Qty: 10 0RF prednisone 20 mg tablet 20 mg PO BID 5 Days Qty: 10 0RF Continued nitroglycerin 0.4 mg tablet, sublingual 0.4 mg SUBLINGUAL Q5M PRN (Reason: chest pain) Qty: 25 6RF Rx Instructions: do not exceed 3 doses per episode cetirizine [Zyrtec] 10 mg tablet 10 mg PO QAM ipratropium-albuterol 0.5 mg-3 mg(2.5 mg base)/3 mL solution for nebulization 3 ml inhalation Q4H PRN (Reason: wheezing) Qty: 180 6RF pantoprazole 40 mg tablet,delayed release (DR/EC) 40 mg PO BID Qty: 90 2RF Singulair 10 mg tablet 10 mg PO DAILY Qty: 90 1RF Xolair 150 mg/mL syringe 300 mg SUBCUT Q14D Qty: 2 12RF fluoxetine 40 mg capsule 40 mg PO QAM trazodone 50 mg tablet 50 mg PO BEDTIME PRN (Reason: Sleep) azelastine 137 mcg (0.1 %) spray,non-aerosol 1 spray INTRANASAL BID@0700,2200 PRN (Reason: Allergy Symptoms) potassium chloride 20 mEq tablet,ER particles/crystals 20 meq PO QAM Qty: 15 0RF furosemide 40 mg tablet 40 mg PO DAILY Qty: 30 0RF clopidogrel 75 mg tablet 75 mg PO DAILY spironolactone 25 mg tablet 25 mg PO DAILY rosuvastatin 40 mg tablet 40 mg PO BEDTIME aripiprazole 2 mg tablet 2 mg PO DAILY atorvastatin 80 mg tablet 80 mg PO QAM fluticasone propionate [Flonase Allergy Relief] 50 mcg/actuation spray,suspension 1 spray INTRANASAL BID@07,22 PRN (Reason: allergies) formoterol fumarate [Perforomist] 20 mcg/2 mL solution for nebulization 20 mcg inhalation Q12H PRN (Reason: Shortness Of Breath) Discharge Orders: Discharge Order (Routine); Ordered 07/20/24 Ordered By: Vinny Rodriguez Referrals: Lauri Krishnan MD [Primary Care Provider] - Joe Bass MD [Physician] - 1 week Discharge Diet: Cardiac Discharge Activity: Resume usual activity Patient Instructions: Opioid Safety Activity Restrictions/Additional Instructions: - Please hydrate well, Tylenol for fevers follow-up with primary care provider Discharge Attestations Time Spent in Discharge Care*: greater than 30 min Status at Discharge: Cognitive status at discharge: cognitively intact, Behavioral status at discharge: cooperative and independent in ADL's, Quality Metrics Clinical Quality Measures [ No reported AMI, CVA or VTE this stay] Coding Level of Care Code 74651 Total time (in minutes) for Discharge: 45 Diagnoses Acute hypoxic respiratory failure J96.01 Acute exacerbation of chronic obstructive airways disease J44.1 Pneumonia J18.9 Chest pain R07.9 Chest pain type: unspecified
[2024-07-20 11:10] VITALS: BP 101/65; PULSE 86; RESP 18; TEMP 36.5; O2SAT 91
[2024-07-20 11:51] VITALS: BP 101/65; PULSE 86; RESP 18; TEMP 36.5; O2SAT 91
== END 2024-07-20 12:46 | disposition home or self-care (01) | DRG 189 ==
LOC: ER 13:14 → MEDSURG 14:29
PROVIDERS: Internal Medicine; Admitting Provider Family Medicine; Emergency Provider Emergency Medicine; PCP Family Medicine; Visit Provider Family Medicine
DX: J96.01 Acute respiratory failure with hypoxia (principal); J18.9 Pneumonia, unspecified organism; J44.0 Chronic obstructive pulmonary disease with (acute) lower respiratory infection; J44.1 Chronic obstructive pulmonary disease with (acute) exacerbation; I50.32 Chronic diastolic (congestive) heart failure; R07.89 Other chest pain; I11.0 Hypertensive heart disease with heart failure; F41.1 Generalized anxiety disorder; K21.9 Gastro-esophageal reflux disease without esophagitis; G47.33 Obstructive sleep apnea (adult) (pediatric); J45.50 Severe persistent asthma, uncomplicated; E78.5 Hyperlipidemia, unspecified; I25.10 Atherosclerotic heart disease of native coronary artery without angina pectoris; F17.210 Nicotine dependence, cigarettes, uncomplicated; Z95.5 Presence of coronary angioplasty implant and graft; I25.2 Old myocardial infarction; Z79.02 Long term (current) use of antithrombotics/antiplatelets
CPT/HCPCS: 12345; 36415; 36600; 71045; 71275; 80048; 80051; 80053; 80061; 82330; 82805; 83605; 83880; 84145; 84443; 84484; 85025; 85378; 86140; 87040; 87637; 90471; 90686; 93005; 94640; 94664; 96372; 96374; 96375; 97116; 97162; 97165; 99285; J0456; J0696; J1200; J1650; J2919; J7030; J7050; J7613; J7626

== ENCOUNTER → 2024-08-26 15:25 | Outpatient (BNVA) | payer MEDICARE, MEDICAID, SELFPAY | PROVIDERS: PCP Family Medicine; Visit Provider Internal Medicine Cardiovascular Disease | DX: I25.10 Atherosclerotic heart disease of native coronary artery without angina pectoris (principal); Z95.5 Presence of coronary angioplasty implant and graft; I11.0 Hypertensive heart disease with heart failure; I50.33 Acute on chronic diastolic (congestive) heart failure; I25.2 Old myocardial infarction; J44.9 Chronic obstructive pulmonary disease, unspecified; F17.210 Nicotine dependence, cigarettes, uncomplicated | CPT/HCPCS: 99214 ==

== ENCOUNTER 2024-12-19 14:10 | Emergency (ER) | payer MEDICARE, MEDICAID, SELFPAY ==
[2024-12-19 14:12] VITALS: BP 111/66; PULSE 122; RESP 22; TEMP 36.5; O2SAT 94; BMI 29.2
--- NOTE | 2024-12-19 14:41 | XRR_ITS ---
PROCEDURE INFORMATION: Exam: XR Chest Exam date and time: 12/19/2024 3:05 PM Age: 59 years old Clinical indication: Shortness of breath; Prior surgery; Surgery date: 6+ months; Surgery type: Cardiac stents; SOB TECHNIQUE: Imaging protocol: Radiologic exam of the chest. Views: 1 view. COMPARISON: CT angio chest PE protcl [id number] 07/17/2024 12:10 PM FINDINGS: Lungs: Unremarkable. No consolidation. Pleural spaces: Unremarkable. No pleural effusion. No pneumothorax. Heart/Mediastinum: Unremarkable. No cardiomegaly. Bones/joints: Unremarkable. XR/XR chest 1V portable [id number] IMPRESSION: No acute findings.
--- NOTE | 2024-12-19 14:43 | W.ED.SOB ---
HPI - SOB/Dyspnea General: Chief Complaint: Shortness of Breath/Dyspnea Stated Complaint: trouble catching breath Time Seen by Provider: 12/19/24 14:34 History of Present Illness: HPI Narrative: Patient is a 59-year-old female with history of COPD and 2 L of O2 as needed, previous smoker, that presents to ED due to shortness of breath. This has been over the course of the last 1 week. She has shortness of breath with exertion and with rest. This is worsening over the course of today. Nonproductive cough. Denies fever or chills. Denies any sick contact. She admits to chest tightness in the central area of her chest without pressure. Associated symptoms: Reports chest pain (tightness, no pain); Deny abdominal pain, fever(s), nausea, palpitations or vomiting Related Data Home Medications ?Medication ?Instructions ?Recorded ?Confirmed cetirizine 10 mg tablet (Zyrtec) 10 mg PO QAM 01/03/23 12/19/24 fluoxetine 40 mg capsule 40 mg PO QAM 01/04/23 12/19/24 trazodone 50 mg tablet 50 mg PO BEDTIME PRN Sleep 01/04/23 12/19/24 azelastine 137 mcg (0.1 %) nasal 1 spray intranasal BID@0700,2200 05/09/24 12/19/24 spray PRN Allergy Symptoms aripiprazole 2 mg tablet 2 mg PO DAILY 05/24/24 12/19/24 clopidogrel 75 mg tablet 75 mg PO DAILY 05/24/24 12/19/24 fluticasone propionate 50 1 spray intranasal BID@07,22 PRN 05/24/24 12/19/24 mcg/actuation nasal allergies spray,suspension (Flonase Allergy Relief) formoterol fumarate 20 mcg/2 mL 20 mcg inhalation Q12H PRN 05/24/24 12/19/24 solution for nebulization Shortness Of Breath (Perforomist) rosuvastatin 40 mg tablet 40 mg PO BEDTIME 05/24/24 12/19/24 spironolactone 25 mg tablet 25 mg PO DAILY 05/24/24 12/19/24 albuterol sulfate 90 mcg/actuation 2 puff inhalation Q4H PRN 12/19/24 12/19/24 aerosol inhaler Shortness Of Breath Previous Rx's ?Medication ?Instructions ?Recorded nitroglycerin 0.4 mg sublingual 0.4 mg sublingual Q5M PRN chest 06/21/22 tablet pain #25 tabs pantoprazole 40 mg tablet,delayed 40 mg PO BID #90 tabs 08/13/22 release montelukast 10 mg tablet 10 mg PO DAILY #90 tabs 08/31/22 (Singulair) ipratropium 0.5 mg-albuterol 3 mg 3 ml inhalation Q4H PRN wheezing 07/18/23 (2.5 mg base)/3 mL nebulization #180 mL soln omalizumab 150 mg/mL subcutaneous 300 mg (2 mL) SUBCUT Q14D #2 mL 12/24/23 syringe (Xolair) furosemide 40 mg tablet 40 mg PO DAILY #30 tabs 05/12/24 potassium chloride 20 mEq 20 meq PO QAM #15 tabs 05/12/24 tablet,extended release(part/cryst) atorvastatin 80 mg tablet 80 mg PO QAM #90 tabs 07/28/24 azithromycin 500 mg tablet See Rx Instructions PO .COMPLEX #3 12/19/24 tabs prednisone 5 mg tablets in a dose See Rx Instructions PO .COMPLEX 12/19/24 pack #36 ea Allergies Allergy/AdvReac Type Severity Reaction Status Date / Time doxycycline Allergy Intermediate ALGY-Hives Verified 08/26/24 16:48 Iodinated Contrast Media Allergy Intermediate ALGY-Hives Verified 08/26/24 16:48 codeine Allergy Unknown Unknown Verified 08/26/24 16:48 Sulfa (Sulfonamide Allergy Unknown Unknown Verified 08/26/24 16:48 Antibiotics) gabapentin Allergy Unknown Verified 08/26/24 16:48 Review of Systems General: Reports: 10 or more systems reviewed and unremarkable except in HPI and below Const: Denies: fever(s) or chills Eyes: Denies: change in vision or blurry vision ENMT: Denies: throat pain Card: Reports: chest pain (tightness, no pain) and dyspnea on exertion; Denies: palpitations Resp: Reports: dyspnea GI: Denies: abdominal pain, nausea or vomiting : Denies: flank pain or difficulty voiding Musc: Denies: neck pain or back pain Skin/Breast: Denies: rash or pruritus Neuro: Denies: headache(s), numbness in extremities or weakness in extremities Psych: Denies: anxiety or depression Keith/Lymph: Denies: easy bruising or easy bleeding All/Imm: Denies: urticaria, throat swelling or tongue swelling PFSH ED PFSH: Medical History Disorders of diaphragm Nicotine addiction CAD (coronary artery disease) (~12/2019) -Known history of CAD with recent stenting of LAD due to anterior wall STEMI in December -Follows up with Dr. Salcedo; f/u in [address] Bass Essential (primary) hypertension -VSS; continue to monitor -continue oral antihypertensives Hypomagnesemia Hypokalemia Encounter for chronic pain management Diastolic congestive heart failure Shortness of breath Severe persistent asthma Closed fracture distal radius and ulna Insomnia Hyperlipidemia Smokers' cough Acute exacerbation of CHF (congestive heart failure) Normocytic anemia -Seems to have intermittent normocytic anemia with a baseline hemoglobin of about 10-11, intermittently normal -Has been on dual antiplatelet therapy given recent stenting -Continue to monitor H&H closely; stable so far -iron and ferritin low; start on iron replacement Asthma -severe persistent, started xolair 02/04/2020 -follow up with Dr. West New onset of congestive heart failure -Could be secondary to recent STEMI requiring intervention with stenting of LAD last month -Echo: EF=57%, normal systolic and diastolic function, no RWMA, trace TR, trace TX -has been on IV diuresis with Lasix; switched to oral lasix -Continue to monitor electrolytes and renal function -Daily weights, monitor ins and outs -BNP elevated at 948 -Chest x-ray reported as unremarkable -Close monitoring of respiratory status, supplemental oxygen as needed Methadone maintenance therapy patient Acute anterior wall NC Chronic post-traumatic stress disorder Generalized anxiety disorder Major depressive disorder, recurrent severe without psychotic features Chronic radicular lumbar pain Herniated disc Sleep apnea, unspecified Lesion of ulnar nerve, bilateral COPD (chronic obstructive pulmonary disease) -no acute exacerbation -does not appear to be oxygen dependent at baseline -recently restarted smoking, 1/2 PPD KRISTOFER on CPAP GERD (gastroesophageal reflux disease) -on PPI Surgical History H/O oral surgery S/P section Presence of stent in LAD coronary artery (01/23/20) H/O bilateral oophorectomy History of cholecystectomy History of carpal tunnel release H/O skin graft Family History Father Myocardial infarct, Onset Age: 45 Brother Myocardial infarct, Onset Age: 53 Other CAD (coronary artery disease) Closed fracture distal radius and ulna Social History (Updated 08/26/24 @ 16:51 by Anju Lopez LPN) Smoking and tobacco/nicotine status: current every day tobacco/nicotine user cigarettes Packs smoked per day: 1 Years cigarettes smoked: 43 Second hand smoke exposure: Yes Alcohol intake: former Substance/Drug Use: never Lives independently: Yes Household members: family Marital status: Current occupational status: disabled Do you think of yourself as: Straight/Heterosexual Current gender identity: Female Physical Exam Const: COMMON NORMALS: patient oriented x3 and no limitations GENERAL APPEARANCE: cooperative and in distress ORIENTATION/CONSCIOUSNESS: Yes awake, Yes oriented to person, Yes oriented to place and Yes oriented to time HENMT: COMMON NORMALS: normocephalic, atraumatic, hearing grossly normal bilaterally and Normal external nose present HEAD & SCALP: normocephalic and atraumatic NOSE: Normal external nose present; no Nasal discharge present THROAT: posterior oropharynx normal Eye: COMMON NORMALS: Equal, round and reactive pupils present, EOMs intact bilaterally, conjunctivae normal and no scleral icterus GENERAL EYE: appearance normal, both eyes and all related structures VISUAL ACUITY: Yes acuity normal CONJUNCTIVA: Yes conjunctivae normal PUPIL: Yes Equal, round and reactive pupils present Neck/C-Spine: COMMON NORMALS: full ROM and no lymphadenopathy Lymph: LYMPHATIC: no lymphadenopathy noted Chest: Breast/axilla inspection: Yes no chest deformity, asymmetry, normal contours, no nodules, masses, tenderness Resp: EFFORT & INSPECTION: No able to speak in complete sentences, Yes respiratory distress, Yes labored and Yes uses accessory muscles AUSCULTATION: wheezes throughout Cardio: COMMON NORMALS: regular rate (obscured by wheezes) and regular rhythm JUGULAR VENOUS DISTENTION: no JVD RATE: regular rate (obscured by wheezes) RHYTHM: regular rhythm GI: COMMON NORMALS: Normal to inspection, nondistended, normoactive bowel sounds present, Soft to palpation and non-tender AUSCULTATION: Yes normoactive bowel sounds PALPATION: Yes Soft to palpation : COMMON NORMALS: Yes no CVA tenderness BLADDER/KIDNEY EXAM: Yes no CVA tenderness Back/Pelvis: COMMON NORMALS: no CVA tenderness Extremity: COMMON NORMALS: normal to inspection and full ROM Neuro: COMMON NORMALS: patient oriented x3 and CN's II-XII intact bilaterally SENSORIUM/ORIENTATION: Yes oriented to person, Yes oriented to place and Yes oriented to time Psych: COMMON NORMALS: speech normal ACTIVITY/MOTOR BEHAVIOR: Yes appropriate eye contact SPEECH: Yes normal speech Course Reevaluation(s): Reevaluation #1: Patient is able to speak full sentences. Heart rate is decreasing nicely. She states that she is improved. Will order DuoNeb. Reevaluation #2: Improved after DuoNeb. Wheezes have stopped. Pt now sounds bronchial t/o Vital Signs: Vital signs: Vital Signs Temperature 97.7 F 12/19/24 14:12 Pulse Rate 94 12/19/24 16:30 Respiratory Rate 18 12/19/24 15:46 Blood Pressure 134/81 12/19/24 16:30 Pulse Oximetry 95 12/19/24 16:30 Oxygen Delivery Me thod Room Air 12/19/24 16:30 MDM - SOB/Dyspnea Medical Decision Making Patient presents fairly short of breath, unable to speak full sentences, with wheezes throughout. She has symptoms consistent with COPD exacerbation. She does have association of chest tightness, and therefore will check troponin/EKG. Initial EKG shows no acute ST elevation. Given her high heart rate, will hold off on DuoNeb, give Solu-Medrol, and reassess often. Vital signs remained stable and oxygen saturation greater than 92% on room air. Patient is improved after aerosol therapy. She is speaking full sentences. There is no wheezing on auscultation. She will be sent home with prednisone taper pack, and azithromycin given her allergy to doxycycline. Lab Data 12/19/24 14:30 12/19/24 14:30 Labs/Radiology: Radiology Impressions Chest X-Ray 12/19/24 14:41 IMPRESSION: No acute findings. Laboratory Results WBC 11.87 10^3/uL (3.29-11.43) H 12/19/24 14:30 RBC 4.87 10^6/uL (3.85-5.65) 12/19/24 14:30 Hgb 13.50 g/dL (11.27-16.99) 12/19/24 14:30 Hct 41.5 % (36-47) 12/19/24 14:30 MCV 85.2 fl (85-98) 12/19/24 14:30 MCH 27.7 pg (27-33) 12/19/24 14:30 MCHC 32.5 g/dL (30-55) 12/19/24 14:30 RDW 15.1 % (12.1-15.1) 12/19/24 14:30 Plt Count 418 10^3/cmm (157-399) H 12/19/24 14:30 MPV 11.4 fL (7.4-10.4) H 12/19/24 14:30 Neut % (Auto) 53.2 % 12/19/24 14:30 Lymph % (Auto) 36.7 % 12/19/24 14:30 [place] % (Auto) 7.0 % 12/19/24 14:30 Eos % (Auto) 2.1 % 12/19/24 14:30 Baso % (Auto) 0.6 % 12/19/24 14:30 Neut # (Auto) 6.31 10^3/uL (1.8-7.7) 12/19/24 14:30 Lymph # (Auto) 4.4 10^3/uL (0.8-4.8) 12/19/24 14:30 [place] # (Auto) 0.8 10^3/uL (0.2-0.9) 12/19/24 14:30 Eos # (Auto) 0.3 10^3/uL (0.0-0.8) 12/19/24 14:30 Baso # (Auto) 0.1 10^3/uL (0.0-0.1) 12/19/24 14:30 Nucleated RBC % (auto) 0 % 12/19/24 14: Nucleated RBCs # 0.0 /100WBC 12/19/24 14:30 Sodium 138 mmol/L (136-145) 12/19/24 14:30 Potassium 4.4 mmol/L (3.5-5.1) 12/19/24 14:30 Chloride 99 mmol/L (98-107) 12/19/24 14:30 Carbon Dioxide 25 mmol/L (22-29) 12/19/24 14:30 Anion Gap 18.4 (5-19) 12/19/24 14:30 BUN 22 mg/dL (6-20) H 12/19/24 14:30 Creatinine 1.0 mg/dL (0.5-0.9) H 12/19/24 14:30 GFR Calculation 56.7 mL/min (90-130) L 12/19/24 14:30 Glucose 121 mg/dL (65-115) H 12/19/24 14:30 Calculated Osmolality 291 mOsm/kg (285-295) 12/19/24 14:30 Lactic Acid 1.6 mmol/L (0.5-2.2) 12/19/24 14:30 Calcium 9.6 mg/dL (8.5-10.5) 12/19/24 14:30 Magnesium 1.8 mg/dL (1.7-2.3) 12/19/24 14:30 Total Bilirubin 0.3 mg/dL (0.15-1.2) 12/19/24 14:30 AST 14 U/L (0-32) 12/19/24 14:30 ALT 9 U/L (0-33) 12/19/24 14:30 Alkaline Phosphatase 184 U/L (35-105) H 12/19/24 14:30 Troponin T Baseline < 6 ng/L (0-10) 12/19/24 14:30 NT-Pro-B Natriuret Pep 141 pg/mL (0-125) H 12/19/24 14:30 Total Protein 7.7 g/dL (6.6-8.7) 12/19/24 14:30 Albumin 4.6 g/dL (3.5-5.2) 12/19/24 14:30 Globulin 3.1 g/dL (1.3-4.6) 12/19/24 14:30 Influenza A (PCR) Negative (Negative) 12/19/24 15:52 Influenza Type B (PCR) Negative (Negative) 12/19/24 15:52 RSV (PCR) Negative (Negative) 12/19/24 15:52 SARS-CoV-2 (PCR) Negative (Negative) 12/19/24 15:52 XR interpretation done by ED provider, pending radiology final review ED provider radiology interpretation(s): copd, no acute findings EKG Data EKG 1: Interpretation: Sinus rhythm, early repolarization, right axis, left atrial enlargement, QTc 395. No ST segment elevation Computer Generated Interpretation: Sinus rhythm with sinus arrhythmia. Normal EKG Discharge Plan Discharge Patient Disposition: Home Clinical Impression: Asthma with COPD with exacerbation Condition: Stable Prescriptions: New azithromycin 500 mg tablet See Rx Instructions .ROUTE .COMPLEX Qty: 3 0RF Rx Instructions: For 500 mg dose pack: take 500 mg once daily for 3 days prednisone 5 mg tablets,dose pack See Rx Instructions .ROUTE .COMPLEX Qty: 36 0RF Rx Instructions: prednisone 5 mg: take 8 tablets (40 mg) on Day 1; 7 tablets (35 mg) on Day 2; then decrease by 1 tablet every day until finished No Action nitroglycerin 0.4 mg tablet, sublingual 0.4 mg SUBLINGUAL Q5M PRN (Reason: chest pain) Qty: 25 6RF Rx Instructions: do not exceed 3 doses per episode cetirizine [Zyrtec] 10 mg tablet 10 mg PO QAM ipratropium-albuterol 0.5 mg-3 mg(2.5 mg base)/3 mL solution for nebulization 3 ml inhalation Q4H PRN (Reason: wheezing) Qty: 180 6RF pantoprazole 40 mg tablet,delayed release (DR/EC) 40 mg PO BID Qty: 90 2RF Singulair 10 mg tablet 10 mg PO DAILY Qty: 90 1RF Xolair 150 mg/mL syringe 300 mg SUBCUT Q14D Qty: 2 12RF atorvastatin 80 mg tablet 80 mg PO QAM Qty: 90 3RF fluoxetine 40 mg capsule 40 mg PO QAM trazodone 50 mg tablet 50 mg PO BEDTIME PRN (Reason: Sleep) azelastine 137 mcg (0.1 %) spray,non-aerosol 1 spray INTRANASAL BID@0700,2200 PRN (Reason: Allergy Symptoms) potassium chloride 20 mEq tablet,ER particles/crystals 20 meq PO QAM Qty: 15 0RF furosemide 40 mg tablet 40 mg PO DAILY Qty: 30 0RF clopidogrel 75 mg tablet 75 mg PO DAILY spironolactone 25 mg tablet 25 mg PO DAILY rosuvastatin 40 mg tablet 40 mg PO BEDTIME aripiprazole 2 mg tablet 2 mg PO DAILY fluticasone propionate [Flonase Allergy Relief] 50 mcg/actuation spray,suspension 1 spray INTRANASAL BID@, PRN (Reason: allergies) formoterol fumarate [Perforomist] 20 mcg/2 mL solution for nebulization 20 mcg inhalation Q12H PRN (Reason: Shortness Of Breath) albuterol sulfate 90 mcg/actuation HFA aerosol inhaler 2 puff INHALATION Q4H PRN (Reason: Shortness Of Breath) Discharge Orders: Discharge ED (Routine); Ordered 12/19/24 Ordered By: Niya Henderson Referrals: Lauri Krishnan MD [Primary Care Provider, Family Practice] Discharge Diet: Low Salt Discharge Activity: Resume usual activity Patient Instructions: Chronic Lung Disease and Infection Prevention (ED) Activity Restrictions/Additional Instructions: Your prednisone, and azithromycin has been sent to your pharmacy of choice. Please take as directed Please return to ED for worsening shortness of breath. Continue your albuterol inhaler as well as the rest your medications as utilized at home. Print Language: Tajik Coding Level of Care Code ED Moisture Meter Operator for Gracie Laguna
--- NOTE | 2024-12-19 14:44 | ECG_ITS ---
[facility] Test Date: 2024-12-19 Pat Name: Nhung Leone Department: Room: Gender: Female Jowl Trimmer: : 1965 Requested By: Niya Henderson Order Number: [id number] Guerin MD: Piedad Estrada M.D. Measurements Intervals [place] Rate: 95 P: 72 TN: 152 QRS: 85 QRSD: 78 T: 72 QT: 342 QTc: 431 Interpretive Statements SINUS RHYTHM WITH SINUS ARRHYTHMIA Compared to ECG 07/17/2024 10:08:24 ST (T wave) deviation no longer present Electronically Signed On 12-20-2024 19:23:58 CDT by Piedad Estrada M.D. [email or web address]
[2024-12-19 14:52] LABS: Basophils # 0.1 10^3/uL (0.0-0.1); Basophils % 0.6 %; Eosinophils # 0.3 10^3/uL (0.0-0.8); Eosinophils % 2.1 %; Hematocrit 41.5 % (36-47); Lymphocytes # 4.4 10^3/uL (0.8-4.8); Lymphocytes % 36.7 %; Mean Corpuscular HGB Conc 32.5 g/dL (30-55); Mean Corpuscular Hemoglobin 27.7 pg (27-33); Mean Corpuscular Volume 85.2 fl (85-98); Mean Platelet Volume 11.4 fL (7.4-10.4); Monocytes # 0.8 10^3/uL (0.2-0.9); Neutrophils # 6.31 10^3/uL (1.8-7.7); Neutrophils % 53.2 %; Nucleated Red Blood Cells % 0 %; Platelet Count 418 10^3/cmm (157-399); Red Blood Count 4.87 10^6/uL (3.85-5.65); Red Cell Distribution Width 15.1 % (12.1-15.1); White Blood Count 11.87 10^3/uL (3.29-11.43)
[2024-12-19] MEDS: methylPREDNISolone sod succ 125 mg/2 mL INJ 80 MG IV (14:55)
[2024-12-19] MEDS: magnesium sulfate premix 2 GM/50 ML PIGGYBACK IV (14:57)
[2024-12-19 15:03] LABS: Lactic Sepsis W/Reflex 1.6 mmol/L (0.5-2.2)
[2024-12-19 15:06] LABS: Troponin(5th) Baseline < 6 ng/L (0-10)
[2024-12-19 15:15] LABS: Alanine Aminotransferase 9 U/L (0-33); Albumin Level 4.6 g/dL (3.5-5.2); Alkaline Phosphatase 184 U/L (35-105); Anion Gap 18.4 (5-19); Aspartate Amino Transferase 14 U/L (0-32); Blood Urea Nitrogen 22 mg/dL (6-20); Calcium 9.6 mg/dL (8.5-10.5); Carbon Dioxide 25 mmol/L (22-29); Chloride 99 mmol/L (98-107); Creatinine Clr Calc Pharmacy 60.8791; Globulin 3.1 g/dL (1.3-4.6); Glomerular Filtration Rate 56.7 mL/min (90-130); Glucose 121 mg/dL (65-115); Magnesium 1.8 mg/dL (1.7-2.3); NT Pro B Type Natriuretic Pept 141 pg/mL (0-125); Osmolality Calculated 291 mOsm/kg (285-295); Potassium 4.4 mmol/L (3.5-5.1); Sodium 138 mmol/L (136-145); Total Bilirubin 0.3 mg/dL (0.15-1.2); Total Protein 7.7 g/dL (6.6-8.7)
[2024-12-19 15:16] LABS: Slide Review Slide Review Perform
[2024-12-19] MEDS: budesonide 0.5 mg/2 mL Neb INHALATION (15:43)
[2024-12-19] MEDS: ipratropium-albuterol 3 mL Neb INHALATION (15:43)
[2024-12-19 15:46] VITALS: PULSE 104; RESP 18; O2SAT 91
[2024-12-19 15:56] VITALS: PULSE 101
[2024-12-19 16:00] VITALS: BP 124/85; PULSE 96; O2SAT 93
[2024-12-19 16:30] VITALS: BP 134/81; PULSE 94; O2SAT 95
[2024-12-19 16:33] LABS: Influenza A NEGATIVE (Negative); Influenza B NEGATIVE (Negative); Respiratory Syncytial Virus Ce NEGATIVE (Negative); SARS-CoV-2 PCR NEGATIVE (Negative)
[2024-12-19 16:53] VITALS: BP 138/82; PULSE 100; O2SAT 91
== END 2024-12-19 16:54 | disposition home or self-care (01) ==
PROVIDERS: Emergency Provider Physician Assistant; PCP Family Medicine
DX: J44.1 Chronic obstructive pulmonary disease with (acute) exacerbation (principal); J45.909 Unspecified asthma, uncomplicated; Z79.02 Long term (current) use of antithrombotics/antiplatelets; Z11.52 Encounter for screening for COVID-19; F17.210 Nicotine dependence, cigarettes, uncomplicated; I25.10 Atherosclerotic heart disease of native coronary artery without angina pectoris; E78.5 Hyperlipidemia, unspecified; I11.0 Hypertensive heart disease with heart failure; I50.30 Unspecified diastolic (congestive) heart failure
CPT/HCPCS: 36415; 71045; 80053; 83605; 83735; 83880; 84484; 85025; 87637; 93005; 94640; 96365; 96375; 99285; J2919; J3475; J7626; J9999

== ENCOUNTER 2025-01-10 13:29 | Inpatient (IN) | payer MEDICARE, MEDICAID, SELFPAY ==
[2025-01-10] VITALS (13 sets, daily range): BP systolic 97–123; BP diastolic 57–80; PULSE 90–105; RESP 14–26; TEMP 36.6–36.8; O2SAT 93–96
--- OUTSIDE RECORDS SUMMARY | 2025-01-10 13:34 | XMS_ITS | Encounter Summary ---
Author Organization [facility] Address [address] [place] [address] Care Team Providers Care Geophysics Teacher Name Role Phone Lauri Krishnan MD Primary Care Provider [phone] Encounter Details Date Type Department Care Team (Late st Contact Info) Description 11/03/2001 Outpatient Historical [facility] CelioPraful MD [address] [facility] [address] [place] [address] ESOPHAGEAL REFLUX (Primary Dx); CHOLELITHIASIS NOS Social History Tobacco Use Types Packs/Day Years Used Date Smoking Tobacco: Never Assessed Comments Unknown Sex and Gender Information Value Date Recorded Sex Assigned at Not on file 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
--- OUTSIDE RECORDS SUMMARY | 2025-01-10 13:34 | XMS_ITS | Encounter Summary ---
Author Organization [facility] Address [address] [place] [address] Care Team Providers Care Rougher Machine Operator Name Role Phone Lauri Krishnan MD Primary Care Provider [phone] Encounter Details Date Type Department Care Team (Latest Contact Info) Description 03/19/2002 Outpatient Historical [facility] Gunnar Mcintyre MD [address] [place] [address] MIGRAINE NOS W/O MENTN INTRACTABLE (Primary Dx) Social History Tobacco Use Types Packs/Day Years Used Date Smoking Tobacco: Never Assessed Comments Unknown Sex and Gender Information Value Date Recorded Sex Assigned at Not on file Legal Sex Female 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
--- OUTSIDE RECORDS SUMMARY | 2025-01-10 13:34 | XMS_ITS | Encounter Summary ---
Author Organization [facility] Address [address] [place] [address] Care Team Providers Care Voltage Regulator Assembler Name Role Phone Lauri Krishnan MD Primary Care Provider [phone] Encounter Details Date Type Department Care Team (Latest Contact Info) Description 03/28/1998 Outpatient Historical [facility] Richard Horner MD NO ADDRESS ON FILE Other specified aftercare following surgery (Primary Dx) Social History Tobacco Use Types Packs/Day Years Used Date Smoking Tobacco: Never Assessed Comments Unknown Sex and Gender Information Value Date Recorded Sex Assigned at Not on file 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
--- OUTSIDE RECORDS SUMMARY | 2025-01-10 13:34 | XMS_ITS | Encounter Summary ---
Author Organization [facility] Address [address] [place] [address] Care Team Providers Care Hydraulic Engineer Name Role Phone Lauri Krishnan MD Primary Care Provider [phone] Encounter Details Date Type Department Care Team (Latest Contact Info) Description 07/20/2002 Outpatient Historical [facility] CelioPraful MD [address] [facility] [address] [place] [address] Diaphragmatic hernia (Primary Dx); HEARTBURN; ABDOMINAL PAIN EPIGASTRIC Social History Tobacco Use Types Packs/Day Years Used Date Smoking Tobacco: Never Assessed Comments Unknown Sex and Gender Information Value Date Recorded Sex Assigned at Not on file Legal Sex Female 5:51 AM GEAR GRINDING MACHINE OPERATOR Gender Identity Not on file Sexual Orientation Not on file documented as of this encounter Plan of Treatment Not on file documented as of this encounter Visit Diagnoses Diagnosis Diaphragmatic hernia- Primary Diaphragmatic hernia without mention of obstruction or gangrene Heartburn Abdominal pain, epigastric documented in this encounter Care Teams Hydraulic Engineer Relationship Specialty Start Date End Date Lauri Krishnan MD [address] [facility] [address] [place] [address] PCP - General Family Practice 12/24/18 documented as of this encounter
--- OUTSIDE RECORDS SUMMARY | 2025-01-10 13:34 | XMS_ITS | Encounter Summary ---
Author Organization [facility] Address [address] [place] [address] Care Team Providers Care Mercerizing Range Controller Name Role Phone Lauri Krishnan MD Primary Care Provider Encounter Details Date Type Department Care Team (Late st Contact Info) Description 07/20/2003 Outpatient Historical [facility] David Lau MD [address] [facility] [address] [place] [address] POSTSURG AFTERCARE OTHER SPECIFIED (Primary Dx) Social History Tobacco Use Types Packs/Day Years Used Date Smoking Tobacco: Never Assessed Comments Unknown Sex and Gender Information Value Date Recorded Sex Assigned at Not on file Legal Sex Female 5:51 AM INTELLIGENCE OPERATIONS SPECIALIST Gender Identity Not on file Sexual Orientation Not on file documented as of this encounter Plan of Treatment Not on file documented as of this encounter Visit Diagnoses Diagnosis Other specified aftercare following surgery- Primary documented in this encounter Care Teams Mercerizing Range Controller Relationship Specialty Start Date End Date Lauri Krishnan MD [address] [facility] [address] [place] [address] PCP - General Family Practice 12/24/18 documented as of this encounter
--- OUTSIDE RECORDS SUMMARY | 2025-01-10 13:34 | XMS_ITS | Encounter Summary ---
Author Organization [facility] Address [address] [place] [address] Care Team Providers Care Ripening Room Operator Name Role Phone Lauri Krishnan MD Primary Care Provider [phone] Encounter Details Date Type Department Care Team (Latest Contact Info) Description 11/26/2001 Outpatient Historical [facility] Lavelle Lopez Jr., MD [address] [place] [address] EDEMA (Primary Dx); CHRONIC AIRWAY OBSTRUCTION NEC (CMS/HCC); TOBACCO USE DISORDER; AFTERCARE VEGETABLE WORKER USE MEDICATN Social History Tobacco Use Types Packs/Day Years Used Date Smoking Tobacco: Never Assessed Comments Unknown Sex and Gender Information Value Date Recorded Sex Assigned at Not on file Legal Sex Female 5:51 AM MATTING PRESS 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 Gender Identity Not on file Sexual Orientation Not on file documented as of this encounter Plan of Treatment Not on file documented as of this encounter Visit Diagnoses Diagnosis Edema- Primary Chronic airway obstruction, not elsewhere classified (CMS/HCC) Chronic airway obstruction, not elsewhere classified Tobacco use disorder Encounter for long-term (current) use of other medications documented in this encounter Care Teams Ripening Room Operator Relationship Specialty Start Date End Date Lauri Krishnan MD [address] [phone] PCP - General Family Practice 12/24/18 documented as of this encounter
--- OUTSIDE RECORDS SUMMARY | 2025-01-10 13:34 | XMS_ITS | Encounter Summary ---
Author Organization [facility] Address [address] [place] [address] Care Team Providers Care Classroom Instructional Aide Name Role Phone Lauri Krishnan MD Primary Care Provider [phone] Encounter Details Date Type Department Care Team (Latest Contact Info) Description 04/09/2003 Outpatient Historical HIS [facility] Lavelle Lopez Jr., MD [address] [place] [address] BRONCHITIS NOS (Primary Dx); Pure hypercholesterolem; TOBACCO USE DISORDER; Vaccine for influenza Social History Tobacco Use Types Packs/Day Years Used Date Smoking Tobacco: Never Assessed Comments Unknown Sex and Gender Information Value Date Recorded Sex Assigned at Not on file Legal Sex Female 5:51 AM AMMUNITION SUPERVISOR Gender Identity Not on file Sexual Orientation Not on file documented as of this encounter Plan of Treatment Not on file documented as of this encounter Visit Diagnoses Diagnosis Bronchitis, not specified as acute or chronic- Primary Pure hypercholesterolem Pure hypercholesterolemia Tobacco use disorder Vaccine for influenza Need for prophylactic vaccination and inoculation against influenza documented in this encounter Care Teams Classroom Instructional Aide Relationship Specialty Start Date End Date Lauri Krishnan MD [address] [address] PCP - General Family Practice 12/24/18 documented as of this encounter
--- OUTSIDE RECORDS SUMMARY | 2025-01-10 13:34 | XMS_ITS | Encounter Summary ---
Author Organization [facility] Address [address] [place] [address] Care Team Providers Care Supervisor Green End Department Name Role Phone Lauri Krishnan MD Primary Care Provider [phone] Encounter Details Date Type Department Care Team (Late st Contact Info) Description 07/08/2002 Outpatient Historical HIS [facility] Lavelle Lopez Jr., MD [address] [place] [address] ABDOMINAL PAIN UNSPEC SITE (Primary Dx) Social History Tobacco Use Types Packs/Day Years Used Date Smoking Tobacco: Never Assessed Comments Unknown Sex and Gender Information Value Date Recorded Sex Assigned at Not on file Legal Sex Female 5:51 AM CLINICAL ACCOUNT SPECIALIST Gender Identity Not on file Sexual Orientation Not on file documented as of this encounter Plan of Treatment Not on file documented as of this encounter Visit Diagnoses Diagnosis Abdominal pain, unspecified site- Primary documented in this encounter Care Teams Supervisor Green End Department Relationship Specialty Start Date End Date Lauri Krishnan MD [address] [facility] 1 [place] [phone] PCP - General Family Practice 12/24/18 documented as of this encounter
--- OUTSIDE RECORDS SUMMARY | 2025-01-10 13:34 | XMS_ITS | Encounter Summary ---
Author Organization [facility] Address [address] [place] [address] Care Team Providers Care Recycling Technician Name Role Phone Lauri Krishnan MD Primary Care Provider [phone] Encounter Details Date Type Department Care Team (Latest Contact Info) Description 09/30/2000 Outpatient Historical HIS [facility] Lavelle Lopez Jr., MD [address] [place] [address] Swelling of limb (Primary Dx); Need for prophylactic hormone replacement therapy (postmenopausal) Social History Tobacco Use Types Packs/Day Years Used Date Smoking Tobacco: Never Assessed Comments Unknown Sex and Gender Information Value Date Recorded Sex Assigned at Not on file Legal Sex Female 5:51 AM GRANT SPECIALIST Gender Identity Not on file Sexual Orientation Not on file documented as of this encounter Plan of Treatment Not on file documented as of this encounter Visit Diagnoses Diagnosis Swelling of limb- Primary Need for prophylactic hormone replacement therapy (postmenopausal) documented in this encounter Care Teams Recycling Technician Relationship Specialty Start Date End Date Lauri Krishnan MD [address] [address] PCP - General Family Practice 12/24/18 documented as of this encounter
--- OUTSIDE RECORDS SUMMARY | 2025-01-10 13:34 | XMS_ITS | Encounter Summary ---
Author Organization [facility] Address [address] [place] [address] Care Team Providers Care Junior Project Coordinator Name Role Phone Lauri Krishnan MD Primary Care Provider [phone] Encounter Details Date Type Department Care Team (Latest Contact Info) Description 12/20/2000 Outpatient Historical HIS [facility] Lavelle Lopez Jr., MD [address] [place] [address] Osteoarthrosis, unspecified whether generalized or localized, other specified sites (Primary Dx); Cystitis, unspecified; Backache, unspecified Social History Tobacco Use Types Packs/Day Years Used Date Smoking Tobacco: Never Assessed Comments Unknown Sex and Gender Information Value Date Recorded Sex Assigned at Not on file Legal Sex Female 5:51 AM BADGER 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
--- OUTSIDE RECORDS SUMMARY | 2025-01-10 13:34 | XMS_ITS | Clinical Summary ---
Author Organization [facility] Address [address] [facility] Attn: [place] [address] Care Team Providers Care Electroplater Helper Name Role Phone Lauri Krishnan MD Primary Care Provider [phone] Allergies Active Allergy Reactions Criticality Noted Date Comments Codeine Hives,Nausea and Vomiting High 12/19/2018 Doxycycline Other (See Comments) 12/19/2018 Pain Gabapentin Muscle Pain Low 12/19/2018 Iodinated Contrast Media Hives High 12/19/2018 Sulfa (Sulfonamide Antibiotics) Hepatic Dysfunction Medium 12/19/2018 Medications oxyCODONE-acetami nophen (PERCOCET) 10-325 mg Tablet Take 1 Tablet by mouth every 6 hours as needed for Pain, Severe. 9 Active montelukast (SINGULAIR) 10 mg tablet Take 10 mg by mouth daily at bedtime. 9 Active rOPINIRole (REQUIP) 5 mg Tablet Take 5 mg by mouth. 9 Active amitriptyline (ELAVIL) 100 mg tablet Take 100 mg by mouth daily at bedtime. 9 Active albuterol (PROVENTIL,VENTOL IN) 2.5 mg /3 mL (0.083 %) Solution for Nebulization Take 2.5 mg by inhalation one time only. 9 Active omeprazole (PriLOSEC) 20 mg Capsule, Delayed Release(E.C.) Take 20 mg by mouth daily. 9 Active clonazePAM (KlonoPIN) 0.5 mg Tablet Take 0.5 mg by mouth 2 times daily. Active naproxen (NAPROSYN) 500 mg tablet Take 500 mg by mouth 2 times daily with meals. Active albuterol HFA 90 mcg inhaler Take 2 Puffs by inhalation every 6 hours as needed for Shortness of Breath. Active roflumilast (DALIRESP) 500 mcg Tablet Take by mouth daily. Active fluticasone-umecl idinium-vilantero l (TRELEGY ELLIPTA) 100-62.5-25 mcg Disk with Device Take 1 Puff by inhalation daily. Active albuterol (PROVENTIL,VENTOL IN) 2.5 mg/0.5 mL Solution for Nebulization Take 2.5 mg by inhalation one time only. Active verapamiL (CALAN) 80 mg tablet Take 100 mg by mouth 3 times daily. Active topiramate (TOPAMAX) 50 mg tablet Take 50 mg by mouth 2 times daily. Active methadone (DOLOPHINE) 10 mg Tablet Take 10 mg by mouth. QID Active Active Problems Problem Noted Date Diagnosed Date Subclinical hyperthyroidism 05/25/2019 Tobacco abuse 05/25/2019 Palpitations 05/25/2019 Allergic rhinitis 03/26/2019 Tachycardia 12/19/2018 Hilar lymphadenopathy 12/19/2018 Stage 2 moderate COPD by GOLD classification Panlobular emphysema 12/19/2018 Encounters Date Type Department Care Team Description 10/12/2024 [facility] Pulmonology Hildebran Aric [id number] [place] [id number] Datar, MD Sidney from Last 3 Months Immunizations Immunization Administration Dates Next Due (TDVAX)(7 YRS UP) TETANUS AN D DIPHTHERIA TOXOIDS, ADSORBED (2 LF OF TETANUS TOXOID AND 2 LF OF DIPHTHERIA TOXOID), 0.5ML (PF), IM 05/16/2000 INFLUENZA VACCINE QUADRIVALENT 6 MOS UP PF IM Influenza Seasonal Unspecified Formulation IM ,05/05/2001 Family History Medical History Relation Name Comments Heart Disease Brother Seizures Brother Heart Disease Father Stroke Maternal Grandfather Arthritis-rheumatoid Maternal Grandmother Heart Disease Maternal Grandmother Respiratory Disease Sister Relation Name Status Comments Brother Father Maternal Grandfather Maternal Grandmother Sister Social History Tobacco Use Types Packs/Day Years Used Date Smoking Tobacco: Former Cigarettes Q uit: 11/21/2018 Smokeless Tobacco: Never Alcohol Use Standard Drinks/Week Comments Not Currently 0 (1 standard drink = 0.6 oz pur e alcohol) Comments Unknown Sex and Gender Information Value Date Recorded Sex Assigned at Not on file Legal Sex Female 8:26 AM MANPOWER DEVELOPMENT MANAGER Gender Identity Not on file Sexual Orientation Not on file Last Filed Vital Signs Vital Sign Reading Time Taken Comments Blood Pressure 136/80 05/25/2019 1:27 PM MANPOWER DEVELOPMENT MANAGER Pulse 100 05/25/2019 1:27 PM MANPOWER DEVELOPMENT MANAGER Temperature - - Respiratory Rate 20 03/26/2019 11:09 AM CDT Oxygen Saturation - - Inhaled Oxygen Concentration - - Weight 82.1 kg (181 lb) 05/25/2019 1:27 PM MANPOWER DEVELOPMENT MANAGER Height 162.6 cm (5' 4 ) 05/25/2019 1:27 PM MANPOWER DEVELOPMENT MANAGER Body Mass Index 31.07 05/25/2019 1:27 PM MANPOWER DEVELOPMENT MANAGER Plan of Treatment Health Maintenance Due Date Last Done Comments HEPATITIS B VACCINES (1 of 3 - 19+ 3-dose series) 1984 DTAP/TDAP/TD VACCINES (1 - Tdap) 05/17/2000 05/16/20 00 BREAST CANCER SCREENING 2005 COLORECTAL SCREENING 2010 Colorectal Cancer Screening 2010 FIT-DNA Q 3 years 2010 FIT/FOBT Q 1 year 2010 Flex Sig/CT Colonography Q 5 years 2010 ZOSTER VACCINE (1 of 2) 2015 INFLUENZA VACCINE (#1) 2025 9, 04/09/2003, 05/05/2001 Care Teams Electroplater Helper Relationship Specialty Start Date End Date Lauri Krishnan MD [address] [phone] PCP - General Family Practice 12/24/18
--- OUTSIDE RECORDS SUMMARY | 2025-01-10 13:34 | XMS_ITS | Encounter Summary ---
Author Organization [facility] Address [address] [facility] [address] Silvermann: Epic Prelude ADT [place] [address] Care Team Providers Care Export Sales Manager Name Role Phone Lauri Krishnan MD Primary Care Provider [phone] Encounter Details Date Type Department Care Team (Late st Contact Info) Description 01/31/2001 Outpatient Historical Lavelle Lopez Jr., MD [address] [place] [address] Social History Tobacco Use Types Packs/Day Years Used Date Smoking Tobacco: Never Assessed Comments Unknown Sex and Gender Information Value Date Recorded Sex Assigned at Not on file Legal Sex Female 5:51 AM COLLECTIONS DIRECTOR Gender Identity Not on file Sexual Orientation Not on file documented as of this encounter Plan of Treatment Not on file documented as of this encounter Visit Diagnoses Not on filedocumented in this encounter Care Teams Export Sales Manager Relationship Specialty Start Date End Date Lauri Krishnan MD [address] [facility] 1 [place] [phone] PCP - General Family Practice 12/24/18 documented as of this encounter
--- OUTSIDE RECORDS SUMMARY | 2025-01-10 13:34 | XMS_ITS | Encounter Summary ---
Author Organization [facility] Address [address] [place] [address] Care Team Providers Care Grain Shoveler Name Role Phone Lauri Krishnan MD Primary Care Provider [phone] Encounter Details Date Type Department Care Team (Latest Contact Info) Description 10/01/2001 Outpatient Historical HIS [facility] Lavelle Lopez Jr., MD [address] [place] [address] ABDOMINAL PAIN UNSPEC SITE (Primary Dx) Social History Tobacco Use Types Packs/Day Years Used Date Smoking Tobacco: Never Assessed Comments Unknown Sex and Gender Information Value Date Recorded Sex Assigned at Not on file Legal Sex Female 5:51 AM CEO Gender Identity Not on file Sexual Orientation Not on file documented as of this encounter Plan of Treatment Not on file documented as of this encounter Visit Diagnoses Diagnosis Abdominal pain, unspecified site- Primary documented in this encounter Care Teams Grain Shoveler Relationship Specialty Start Date End Date Lauri Krishnan MD [address] [phone] PCP - General Family Practice 12/24/18 documented as of this encounter
--- OUTSIDE RECORDS SUMMARY | 2025-01-10 13:34 | XMS_ITS | Encounter Summary ---
Author Organization [facility] Address [address] [place] [address] Care Team Providers Care Edger Machine Setter Name Role Phone Lauri Krishnan MD Primary Care Provider [phone] Encounter Details Date Type Department Care Team (Latest Contact Info) Description 07/03/2000 Outpatient Historical HIS [facility] Lavelle Lopez Jr., MD [address] [place] [address] Endometriosis, site unspecified (Primary Dx) Social History Tobacco Use Types Packs/Day Years Used Date Smoking Tobacco: Never Assessed Comments Unknown Sex and Gender Information Value Date Recorded Sex Assigned at Not on file Legal Sex Female 5:51 AM BREWERY REPRESENTATIVE Gender Identity Not on file Sexual Orientation Not on file documented as of this encounter Plan of Treatment Not on file documented as of this encounter Visit Diagnoses Diagnosis Endometriosis, site unspecified- Primary documented in this encounter Care Teams Edger Machine Setter Relationship Specialty Start Date End Date Lauri Krishnan MD [address] [phone] PCP - General Family Practice 12/24/18 documented as of this encounter
--- OUTSIDE RECORDS SUMMARY | 2025-01-10 13:34 | XMS_ITS | Encounter Summary ---
Author Organization [facility] Address [address] [place] [address] Care Team Providers Care Muffle Operator Name Role Phone Lauri Krishnan MD Primary Care Provider Encounter Details Date Type Department Care Team (Late st Contact Info) Description 06/29/2003 Outpatient Historical HIS [facility] David Lau MD [address] [facility] [address] [place] [address] POSTSURG AFTERCARE OTHER SPECIFIED (Primary Dx) Social History Tobacco Use Types Packs/Day Years Used Date Smoking Tobacco: Never Assessed Comments Unknown Sex and Gender Information Value Date Recorded Sex Assigned at Not on file Legal Sex Female 5:51 AM STACK ATTENDANT Gender Identity Not on file Sexual Orientation Not on file documented as of this encounter Plan of Treatment Not on file documented as of this encounter Visit Diagnoses Diagnosis Other specified aftercare following surgery- Primary documented in this encounter Care Teams Muffle Operator Relationship Specialty Start Date End Date Lauri Krishnan MD [address] [facility] 1 [place] [address] PCP - General Family Practice 12/24/18 documented as of this encounter
--- OUTSIDE RECORDS SUMMARY | 2025-01-10 13:34 | XMS_ITS | Encounter Summary ---
Author Organization [facility] Address [address] [place] [address] Care Team Providers Care Wood Heel Cementer Name Role Phone Lauri Krishnan MD Primary Care Provider Encounter Details Date Type Department Care Team (Latest Contact Info) Description 10/15/2001 Outpatient Historical [facility] Lavelle Lopez Jr., MD [address] [place] [address] ABDOMINAL PAIN UNSPEC SITE (Primary Dx) Social History Tobacco Use Types Packs/Day Years Used Date Smoking Tobacco: Never Assessed Comments Unknown Sex and Gender Information Value Date Recorded Sex Assigned at Not on file Legal Sex Female 5:51 AM EMERGENCY GENERATOR MECHANIC Gender Identity Not on file Sexual Orientation Not on file documented as of this encounter Plan of Treatment Not on file documented as of this encounter Visit Diagnoses Diagnosis Abdominal pain, unspecified site- Primary documented in this encounter Care Teams Wood Heel Cementer Relationship Specialty Start Date End Date Lauri Krishnan MD [address] [phone] PCP - General Family Practice 12/24/18 documented as of this encounter
--- OUTSIDE RECORDS SUMMARY | 2025-01-10 13:34 | XMS_ITS | Encounter Summary ---
Author Organization [facility] Address [address] [place] [address] Care Team Providers Care Program Technician Name Role Phone Lauri Krishnan MD Primary Care Provider Encounter Details Date Type Department Care Team (Latest Contact Info) Description 04/10/2001 Outpatient Historical [facility] Lavelle Lopez Jr., MD [address] [place] [address] Irritable bowel syndrome (Primary Dx); Osteoarthrosis, unspecified whether generalized or localized, unspecified site; Depressive disorder, not elsewhere classified; Need for prophylactic hormone replacement therapy (postmenopausal) Social History Tobacco Use Types Packs/Day Years Used Date Smoking Tobacco: Never Assessed Comments Unknown Sex and Gender Information Value Date Recorded Sex Assigned at Not on file Legal Sex Female 5:51 AM COORDINATE MEASURING EQUIPMENT OPERATOR Gender Identity Not on file Sexual Orientation Not on file documented as of this encounter Plan of Treatment Not on file documented as of this encounter Visit Diagnoses Diagnosis Irritable bowel syndrome- Primary Osteoarthrosis, unspecified whether generalized or localized, unspecified site Depressive disorder, not elsewhere classified Need for prophylactic hormone replacement therapy (postmenopausal) documented in this encounter Care Teams Program Technician Relationship Specialty Start Date End Date Lauri Krishnan MD [address] [phone] PCP - General Family Practice 12/24/18 documented as of this encounter
--- OUTSIDE RECORDS SUMMARY | 2025-01-10 13:34 | XMS_ITS | Encounter Summary ---
Author Organization [facility] Address [address] [place] [address] Care Team Providers Care Crab Fisherman Name Role Phone Lauri Krishnan MD Primary Care Provider [phone] Encounter Details Date Type Department Care Team (Latest Contact Info) Description 08/27/2001 Outpatient Historical HIS [facility] Lavelle Lopez Jr., MD [address] [place] [address] CHRONIC AIRWAY OBSTRUCTION NEC (CMS/HCC) (Primary Dx); DEPRESSIVE DISORDER NEC; Pain in limb; TOBACCO USE DISORDER Social History Tobacco Use Types Packs/Day Years Used Date Smoking Tobacco: Never Assessed Comments Unknown Sex and Gender Information Value Date Recorded Sex Assigned at Not on file Legal Sex Female 5:51 AM TOWBOAT CAPTAIN Gender Identity Not on file Sexual Orientation Not on file documented as of this encounter Plan of Treatment Not on file documented as of this encounter Visit Diagnoses Diagnosis Chronic airway obstruction, not elsewhere classified (CMS/HCC)- Primary Chronic airway obstruction, not elsewhere classified Depressive disorder, not elsewhere classified Pain in limb Pain in soft tissues of limb Tobacco use disorder documented in this encounter Care Teams Crab Fisherman Relationship Specialty Start Date End Date Lauri Krishnan MD [address] [phone] PCP - General Family Practice 12/24/18 documented as of this encounter
--- OUTSIDE RECORDS SUMMARY | 2025-01-10 13:34 | XMS_ITS | Encounter Summary ---
Author Organization [facility] Address [address] [place] [address] Care Team Providers Care Senior Medical Billing Specialist Name Role Phone Lauri Krishnan MD Primary Care Provider [phone] Encounter Details Date Type Department Care Team (Latest Contact Info) Description 07/10/2002 Outpatient Historical HIS [facility] Lavelle Lopez Jr., MD [address] [place] [address] BRONCHITIS NOS (Primary Dx); ESOPHAGEAL REFLUX; Diaphragmatic hernia; ALLERGIC RHINITIS NEC Social History Tobacco Use Types Packs/Day Years Used Date Smoking Tobacco: Never Assessed Comments Unknown Sex and Gender Information Value Date Recorded Sex Assigned at Not on file Legal Sex Female 5:51 AM TIMBER HARVESTER OPERATOR Gender Identity Not on file Sexual Orientation Not on file documented as of this encounter Plan of Treatment Not on file documented as of this encounter Visit Diagnoses Diagnosis Bronchitis, not specified as acute or chronic- Primary Esophageal reflux Diaphragmatic hernia Diaphragmatic hernia without mention of obstruction or gangrene Allergic rhinitis due to other allergen documented in this encounter Care Teams Senior Medical Billing Specialist Relationship Specialty Start Date End Date Lauri Krishnan MD [address] [address] PCP - General Family Practice 12/24/18 documented as of this encounter
--- OUTSIDE RECORDS SUMMARY | 2025-01-10 13:34 | XMS_ITS | Encounter Summary ---
Author Organization [facility] Address [address] [place] [address] Care Team Providers Care Power Line Lineman Name Role Phone Lauri Krishnan MD Primary Care Provider [phone] Encounter Details Date Type Department Care Team (Latest Contact Info) Description 01/31/2001 Outpatient Historical HIS [facility] Lavelle Lopez Jr., MD [address] [place] [address] Hematuria (Primary Dx); Osteoarthrosis, unspecified whether generalized or localized, unspecified site Social History Tobacco Use Types Packs/Day Years Used Date Smoking Tobacco: Never Assessed Comments Unknown Sex and Gender Information Value Date Recorded Sex Assigned at Not on file Legal Sex Female 5:51 AM CLIENT ACCOUNT ASSISTANT Gender Identity Not on file Sexual Orientation Not on file documented as of this encounter Plan of Treatment Not on file documented as of this encounter Visit Diagnoses Diagnosis Hematuria- Primary Osteoarthrosis, unspecified whether generalized or localized, unspecified site documented in this encounter Care Teams Power Line Lineman Relationship Specialty Start Date End Date Lauri Krishnan MD [address] [phone] PCP - General Family Practice 12/24/18 documented as of this encounter
--- OUTSIDE RECORDS SUMMARY | 2025-01-10 13:34 | XMS_ITS | Encounter Summary ---
Author Organization [facility] Address [address] [place] [address] Care Team Providers Care Mechanics Supervisor Name Role Phone Lauri Krishnan MD Primary Care Provider [phone] Encounter Details Date Type Department Care Team (Latest Contact Info) Description 04/15/1998 Outpatient Historical HIS [facility] Richard Horner MD NO ADDRESS ON FILE Other specified aftercare following surgery (Primary Dx) Social History Tobacco Use Types Packs/Day Years Used Date Smoking Tobacco: Never Assessed Comments Unknown Sex and Gender Information Value Date Recorded Sex Assigned at Not on file Legal Sex Female 5:51 AM ADVENTURE CHALLENGE INSTRUCTOR Gender Identity Not on file Sexual Orientation Not on file documented as of this encounter Plan of Treatment Not on file documented as of this encounter Visit Diagnoses Diagnosis Other specified aftercare following surgery- Primary documented in this encounter Care Teams Mechanics Supervisor Relationship Specialty Start Date End Date Lauri Krishnan MD [address] [phone] PCP - General Family Practice 12/24/18 documented as of this encounter
--- OUTSIDE RECORDS SUMMARY | 2025-01-10 13:34 | XMS_ITS | Clinical Summary ---
Author Organization [facility] Address [address] [place] [address] Care Team Providers Care Change Control Coordinator Name Role Phone Lauri Krishnan MD Primary Care Provider [phone] Allergies Active Allergy Reactions Criticality Noted Date Comments Codeine Hives,Nausea and Vomiting High 12/19/2018 Doxycycline Other (See Comments) 12/19/2018 Pain Gabapentin Muscle Pain Low 12/19/2018 Iodinated Contrast Media Hives High 12/19/2018 Sulfa (Sulfonamide Antibiotics) Hepatic Dysfunction Medium 12/19/2018 Medications oxyCODONE-acetami nophen (PERCOCET) 10-325 mg Tablet Take 1 Tablet by mouth every 6 hours as needed for Pain, Severe. Active amitriptyline (ELAVIL) 100 mg tablet Take 100 mg by mouth daily at bedtime. Active naproxen (NAPROSYN) 500 mg tablet Take 500 mg by mouth 2 times daily with meals. Active albuterol (PROVENTIL,VENTOL IN) 2.5 mg/0.5 mL Solution for Nebulization Take 2.5 mg by inhalation one time only. Active albuterol (PROVENTIL,VENTOL IN) 2.5 mg /3 mL (0.083 %) Solution for Nebulization Take 2.5 mg by inhalation one time only. Active albuterol HFA 90 mcg inhaler Take 2 Puffs by inhalation every 6 hours as needed for Shortness of Breath. Active rOPINIRole (REQUIP) 5 mg Tablet Take 5 mg by mouth. Active omeprazole (PriLOSEC) 20 mg Capsule, Delayed Release(E.C.) Take 20 mg by mouth daily. Active montelukast (SINGULAIR) 10 mg tablet Take 10 mg by mouth daily at bedtime. Active roflumilast (DALIRESP) 500 mcg Tablet Take by mouth daily. Active clonazePAM (KlonoPIN) 0.5 mg Tablet Take 0.5 mg by mouth 2 times daily. Active fluticasone-umecl idinium-vilantero l (TRELEGY ELLIPTA) 100-62.5-25 mcg Disk with Device Take 1 Puff by inhalation daily. Active verapamil (CALAN) 80 mg tablet Take 100 mg by mouth 3 times daily. Active topiramate (TOPAMAX) 50 mg tablet Take 50 mg by mouth 2 times daily. Active methadone (DOLOPHINE) 10 mg Tablet Take 10 mg by mouth. QID Active Active Problems Problem Noted Date Diagnosed Date Subclinical hyperthyroidism 05/25/2019 Palpitations 05/25/2019 Tobacco abuse 05/25/2019 Allergic rhinitis 03/26/2019 Stage 2 moderate COPD by GOLD classification Tachycardia 12/19/2018 Panlobular emphysema 12/19/2018 Hilar lymphadenopathy 12/19/2018 Immunizations Immunization Administration Dates Next Due (TDVAX)(7 [...] Years Used Date Smoking Tobacco: Former Cigarettes 1 37 0 11/21/1981 - 11/21/2018 Smokeless Tobacco: Never Alcohol Use Standard Drinks/Week Comments Not Currently 0 (1 standard drink = 0.6 oz pur e alcohol) Comments No Sex and Gender Information Value Date Recorded Sex Assigned at Not on file Legal Sex Female 5:51 AM REEL TENDER Gender Identity Not on file Sexual Orientation Not on file Last Filed Vital Signs Vital Sign Reading Time Taken Comments Blood Pressure 136/80 05/25/2019 1:27 PM REEL TENDER Pulse 100 05/25/2019 1:27 PM REEL TENDER Temperature - - Respiratory Rate 20 03/26/2019 11:09 AM CDT Oxygen Saturation 98% 03/26/2019 11:09 AM CDT Inhaled Oxygen Concentration - - Weight 82.1 kg (181 lb) 05/25/2019 1:27 PM REEL TENDER Height 162.6 cm (5' 4 ) 05/25/2019 1:27 PM REEL TENDER Body Mass Index 31.07 05/25/2019 1:27 PM REEL TENDER Plan of Treatment Health Maintenance Due Date Last Done Comments HEPATITIS B VACCINES (1 of 3 - 19+ 3-dose series) 1984 DTAP/TDAP/TD VACCINES (1 - Tdap) 05/17/2000 05/16/20 00 BREAST CANCER SCREENING 2005 COLORECTAL SCREENING 2010 Colorectal Cancer Screening 2010 FIT-DNA Q 3 years 2010 FIT/FOBT Q 1 year 2010 06/05/2000 Flex Sig/CT Colonography Q 5 years 2010 ZOSTER VACCINE (1 of 2) 2015 INFLUENZA VACCINE (#1) 2025 9, 04/09/2003, 05/05/2001 Insurance [facility] DUAL COMPLETE MCR PPO D-SNP [place] Care Teams Change Control Coordinator Relationship Specialty Start Date End Date Lauri Krishnan MD [address] [phone] PCP - General Family Practice 12/24/18
--- OUTSIDE RECORDS SUMMARY | 2025-01-10 13:34 | XMS_ITS | Encounter Summary ---
Author Organization [facility] Address [address] [place] [address] Care Team Providers Care Inward Toll Operator Name Role Phone Lauri Krishnan MD Primary Care Provider Encounter Details Date Type Department Care Team (Late st Contact Info) Description 08/31/2003 Outpatient Historical [facility] PLASTIC SURGERY David Lau MD [address] [facility] [address] [place] [address] CARPAL TUNNEL SYNDROME (Primary Dx) Social History Tobacco Use Types Packs/Day Years Used Date Smoking Tobacco: Never Assessed Comments Unknown Sex and Gender Information Value Date Recorded Sex Assigned at Not on file Legal Sex Female 5:51 AM FLAT BED KNITTER Gender Identity Not on file Sexual Orientation Not on file documented as of this encounter Plan of Treatment Not on file documented as of this encounter Visit Diagnoses Diagnosis Carpal tunnel syndrome- Primary documented in this encounter Care Teams Inward Toll Operator Relationship Specialty Start Date End Date Lauri Krishnan MD 5 [facility] 1 [place] [phone] PCP - General Family Practice 12/24/18 documented as of this encounter
--- OUTSIDE RECORDS SUMMARY | 2025-01-10 13:34 | XMS_ITS | Encounter Summary ---
Author Organization [facility] Address [address] [place] [address] Care Team Providers Care Coffee Shop Manager Name Role Phone Lauri Krishnan MD Primary Care Provider [phone] Encounter Details Date Type Department Care Team (Latest Contact Info) Description 05/05/2001 Outpatient Historical [facility] Lavelle Lopez Jr., MD [address] [place] [address] OSTEOARTHROS NOS-UNSPEC (Primary Dx); DEPRESSIVE DISORDER NEC; POSTMENOPAUSAL HORMONAL REPLACMT; VACCINE FOR INFLUENZA Social History Tobacco Use Types Packs/Day Years Used Date Smoking Tobacco: Never Assessed Comments Unknown Sex and Gender Information Value Date Recorded Sex Assigned at Not on file Legal Sex Female 5:51 AM LOZENGE MAKER Gender Identity Not on file Sexual Orientation Not on file documented as of this encounter Plan of Treatment Not on file documented as of this encounter Visit Diagnoses Diagnosis Osteoarthrosis, unspecified whether generalized or localized, unspecified site- Primary Depressive disorder, not elsewhere classified Need for prophylactic hormone replacement therapy (postmenopausal) Need vaccination-viral disease Need for prophylactic vaccination and inoculation against other viral diseases documented in this encounter Care Teams Coffee Shop Manager Relationship Specialty Start Date End Date Lauri Krishnan MD [address] [phone] PCP - General Family Practice 12/24/18 documented as of this encounter
--- OUTSIDE RECORDS SUMMARY | 2025-01-10 13:34 | XMS_ITS | Encounter Summary ---
Author Organization [facility] Address [address] [place] [address] Care Team Providers Care Residential Appliance Repair Technician Name Role Phone Lauri Krishnan MD Primary Care Provider Encounter Details Date Type Department Care Team (Late st Contact Info) Description 12/03/2001 Outpatient Historical [facility] CelioPraful MD [address] [facility] 3 [place] [address] SURGERY FOLLOWUP, UNSPEC (Primary Dx) Social History Tobacco Use Types Packs/Day Years Used Date Smoking Tobacco: Never Assessed Comments Unknown Sex and Gender Information Value Date Recorded Sex Assigned at Not on file Legal Sex Female 5:51 AM COREMAKER PIPE Gender Identity Not on file Sexual Orientation Not on file documented as of this encounter Plan of Treatment Not on file documented as of this encounter Visit Diagnoses Diagnosis Follow-up examination, following unspecified surgery- Primary documented in this encounter Care Teams Residential Appliance Repair Technician Relationship Specialty Start Date End Date Lauri Krishnan MD 8[address] [facility] 1 [place] [phone] PCP - General Family Practice 12/24/18 documented as of this encounter
--- OUTSIDE RECORDS SUMMARY | 2025-01-10 13:34 | XMS_ITS | Encounter Summary ---
Author Organization [facility] Address [address] [place] [address] Care Team Providers Care Gis Developer Name Role Phone Lauri Krishnan MD Primary Care Provider [phone] Encounter Details Date Type Department Care Team (Late st Contact Info) Description 06/21/2003 Outpatient [facility] [address] [place] [address] [place] [address] David Lau MD 10[address] [facility] 102 [place] [phone] CARPAL TUNNEL SYNDROME (Primary Dx) Social History Tobacco Use Types Packs/Day Years Used Date Smoking Tobacco: Never Assessed Comments Unknown Sex and Gender Information Value Date Recorded Sex Assigned at Not on file Legal Sex Female 5:51 AM BOX HINGE AND LOCK ATTACHER Gender Identity Not on file Sexual Orientation Not on file documented as of this encounter Plan of Treatment Not on file documented as of this encounter Visit Diagnoses Diagnosis Carpal tunnel syndrome- Primary documented in this encounter Care Teams Gis Developer Relationship Specialty Start Date End Date Lauri Krishnan MD 805 [facility] 1 [place] [address] PCP - General Family Practice 12/24/18 documented as of this encounter
--- OUTSIDE RECORDS SUMMARY | 2025-01-10 13:34 | XMS_ITS | Encounter Summary ---
Author Organization [facility] Address [address] [place] [address] Care Team Providers Care Office Services Specialist Name Role Phone Lauri Krishnan MD Primary Care Provider [phone] Encounter Details Date Type Department Care Team (Latest Contact Info) Description 02/25/2002 Outpatient Historical HIS [facility] Lavelle Lopez Jr., MD [address] [place] [address] ACUTE SINUSITIS NOS (Primary Dx); HEADACHE; CARPAL TUNNEL SYNDROME; TOBACCO USE DISORDER Social History Tobacco Use Types Packs/Day Years Used Date Smoking Tobacco: Never Assessed Comments Unknown Sex and Gender Information Value Date Recorded Sex Assigned at Not on file Legal Sex Female 5:51 AM SUPPORT ENGINEER Gender Identity Not on file Sexual Orientation Not on file documented as of this encounter Plan of Treatment Not on file documented as of this encounter Visit Diagnoses Diagnosis Acute sinusitis, unspecified- Primary Headache(784.0) Headache Carpal tunnel syndrome Tobacco use disorder documented in this encounter Care Teams Office Services Specialist Relationship Specialty Start Date End Date Lauri Krishnan MD [address] [phone] PCP - General Family Practice 12/24/18 documented as of this encounter
--- OUTSIDE RECORDS SUMMARY | 2025-01-10 13:34 | XMS_ITS | Encounter Summary ---
Author Organization [facility] Address [address] [place] [address] Care Team Providers Care Hammer Mill Operator Name Role Phone Lauri Krishnan MD Primary Care Provider [phone] Encounter Details Date Type Department Care Team (Latest Contact Info) Description 08/29/2000 Outpatient Historical [facility] Lavelle Lopez Jr., MD [address] [place] [address] Bronchitis, not specified as acute or chronic (Primary Dx); Insomnia, unspecified Social History Tobacco Use Types Packs/Day Years Used Date Smoking Tobacco: Never Assessed Comments Unknown Sex and Gender Information Value Date Recorded Sex Assigned at Not on file Legal Sex Female 5:51 AM ROLL SCALE WORKER Gender Identity Not on file Sexual Orientation Not on file documented as of this encounter Plan of Treatment Not on file documented as of this encounter Visit Diagnoses Diagnosis Bronchitis, not specified as acute or chronic- Primary Insomnia, unspecified documented in this encounter Care Teams Hammer Mill Operator Relationship Specialty Start Date End Date Lauri Krishnan MD [address] [address] PCP - General Family Practice 12/24/18 documented as of this encounter
--- OUTSIDE RECORDS SUMMARY | 2025-01-10 13:34 | XMS_ITS | Encounter Summary ---
Author Organization [facility] Address [address] [place] [address] Care Team Providers Care Program Strategist Name Role Phone Lauri Krishnan MD Primary Care Provider [phone] Encounter Details Date Type Department Care Team (Latest Contact Info) Description 03/25/2003 Outpatient Historical [facility] Lavelle Lopez Jr., MD [address] [place] [address] CARPAL TUNNEL SYNDROME (Primary Dx); BRONCHITIS NOS; CHRONIC AIRWAY OBSTRUCTION NEC ([facility]) Social History Tobacco Use Types Packs/Day Years Used Date Smoking Tobacco: Never Assessed Comments Unknown Sex and Gender Information Value Date Recorded Sex Assigned at Not on file Legal Sex Female 5:51 AM SENIOR LABEL SPECIALIST Gender Identity Not on file Sexual Orientation Not on file documented as of this encounter Plan of Treatment Not on file documented as of this encounter Visit Diagnoses Diagnosis Carpal tunnel syndrome- Primary Bronchitis, not specified as acute or chronic Chronic airway obstruction, not elsewhere classified (CMS/HCC) Chronic airway obstruction, not elsewhere classified documented in this encounter Care Teams Program Strategist Relationship Specialty Start Date End Date Lauri Krishnan MD [address] [address] PCP - General Family Practice 12/24/18 documented as of this encounter
--- OUTSIDE RECORDS SUMMARY | 2025-01-10 13:34 | XMS_ITS | Encounter Summary ---
Author Organization [facility] Address [address] [place] [address] Care Team Providers Care Molding Machine Operator Name Role Phone Lauri Krishnan MD Primary Care Provider [phone] Encounter Details Date Type Department Care Team (Late st Contact Info) Description 08/03/2003 Outpatient Historical HIS [facility] PLASTIC SURGERY David Lau MD [address] [facility] [address] [place] [address] PLASTIC SURGERY NEC (Primary Dx); POSTSURG AFTERCARE OTHER SPECIFIED Social History Tobacco Use Types Packs/Day Years Used Date Smoking Tobacco: Never Assessed Comments Unknown Sex and Gender Information Value Date Recorded Sex Assigned at Not on file Legal Sex Female 5:51 AM MANAGER PAYMENT Gender Identity Not on file Sexual Orientation Not on file documented as of this encounter Plan of Treatment Not on file documented as of this encounter Visit Diagnoses Diagnosis Other plastic surgery for unacceptable cosmetic appearance- Primary Other specified aftercare following surgery documented in this encounter Care Teams Molding Machine Operator Relationship Specialty Start Date End Date Lauri Krishnan MD [address] [facility] [address] [place] [phone] PCP - General Family Practice 12/24/18 documented as of this encounter
--- OUTSIDE RECORDS SUMMARY | 2025-01-10 13:34 | XMS_ITS | Encounter Summary ---
Author Organization [facility] Address [address] [place] [address] Care Team Providers Care Char Puller Name Role Phone Lauri Krishnan MD Primary Care Provider [phone] Encounter Details Date Type Department Care Team (Latest Contact Info) Description 10/14/2000 Outpatient Historical HIS [facility] Lavelle Lopez Jr., MD [address] [place] [address] Acute pharyngitis (Primary Dx); Phlebitis and thrombophlebitis of unspecified site Social History Tobacco Use Types Packs/Day Years Used Date Smoking Tobacco: Never Assessed Comments Unknown Sex and Gender Information Value Date Recorded Sex Assigned at Not on file Legal Sex Female 5:51 AM INTELLIGENCE SPECIALIST Gender Identity Not on file Sexual Orientation Not on file documented as of this encounter Plan of Treatment Not on file documented as of this encounter Visit Diagnoses Diagnosis Acute pharyngitis- Primary Phlebitis and thrombophlebitis of unspecified site documented in this encounter Care Teams Char Puller Relationship Specialty Start Date End Date Lauri Krishnan MD [address] [address] PCP - General Family Practice 12/24/18 documented as of this encounter
--- OUTSIDE RECORDS SUMMARY | 2025-01-10 13:34 | XMS_ITS | Encounter Summary ---
Author Organization [facility] Address [address] [place] [address] Care Team Providers Care Employee Service Officer Name Role Phone Lauri Krishnan MD Primary Care Provider [phone] Encounter Details Date Type Department Care Team (Latest Contact Info) Description 01/23/2002 Outpatient Historical HIS [facility] Gunnar Mcintyre MD [address] [place] [address] UNSPECIFIED VIRAL INFECTION (Primary Dx) Social History Tobacco Use Types Packs/Day Years Used Date Smoking Tobacco: Never Assessed Comments Unknown Sex and Gender Information Value Date Recorded Sex Assigned at Not on file Legal Sex Female 5:51 AM MEDICAL IMAGING TECH Gender Identity Not on file Sexual Orientation Not on file documented as of this encounter Plan of Treatment Not on file documented as of this encounter Visit Diagnoses Diagnosis Unspecified viral infection, in conditions classified elsewhere and of unspecified site- Primary documented in this encounter Care Teams Employee Service Officer Relationship Specialty Start Date End Date Lauri Krishnan MD [address] [phone] PCP - General Family Practice 12/24/18 documented as of this encounter
--- OUTSIDE RECORDS SUMMARY | 2025-01-10 13:34 | XMS_ITS | Encounter Summary ---
Author Organization [facility] Address [address] [place] [address] Care Team Providers Care Insurance Marketing Specialist Name Role Phone Lauri Krishnan MD Primary Care Provider [phone] Encounter Details Date Type Department Care Team (Latest Contact Info) Description 02/14/2001 Outpatient Historical HIS [facility] Lavelle Lopez Jr., MD [address] [place] [address] Abdominal pain, unspecified site (Primary Dx) Social History Tobacco Use Types Packs/Day Years Used Date Smoking Tobacco: Never Assessed Comments Unknown Sex and Gender Information Value Date Recorded Sex Assigned at Not on file Legal Sex Female 5:51 AM HEARING SCREEN COORDINATOR Gender Identity Not on file Sexual Orientation Not on file documented as of this encounter Plan of Treatment Not on file documented as of this encounter Visit Diagnoses Diagnosis Abdominal pain, unspecified site- Primary documented in this encounter Care Teams Insurance Marketing Specialist Relationship Specialty Start Date End Date Lauri Krishnan MD [address] [phone] PCP - General Family Practice 12/24/18 documented as of this encounter
--- OUTSIDE RECORDS SUMMARY | 2025-01-10 13:34 | XMS_ITS | Encounter Summary ---
Author Organization [facility] Address [address] [place] [address] Care Team Providers Care Woolen Suiting Shrinker Name Role Phone Lauri Krishnan MD Primary Care Provider [phone] Encounter Details Date Type Department Care Team (Late st Contact Info) Description 07/12/2003 Outpatient [facility] [address] [place] [address] David Lau MD 1020 [facility] 102 [place] [phone] CARPAL TUNNEL SYNDROME (Primary Dx) Social History Tobacco Use Types Packs/Day Years Used Date Smoking Tobacco: Never Assessed Comments Unknown Sex and Gender Information Value Date Recorded Sex Assigned at Not on file Legal Sex Female 5:51 AM EMAIL MARKETING PROCESSOR Gender Identity Not on file Sexual Orientation Not on file documented as of this encounter Plan of Treatment Not on file documented as of this encounter Visit Diagnoses Diagnosis Carpal tunnel syndrome- Primary documented in this encounter Care Teams Woolen Suiting Shrinker Relationship Specialty Start Date End Date Lauri Krishnan MD 805 [facility] 1 [place] [address] PCP - General Family Practice 12/24/18 documented as of this encounter
--- OUTSIDE RECORDS SUMMARY | 2025-01-10 13:34 | XMS_ITS | Encounter Summary ---
Author Organization [facility] Address [address] [place] [address] Care Team Providers Care Cornetist Name Role Phone Lauri Krishnan MD Primary Care Provider [phone] Encounter Details Date Type Department Care Team (Latest Contact Info) Description 02/22/2003 Outpatient Historical [facility] Lavelle Lopez Jr., MD [address] [place] [address] CARPAL TUNNEL SYNDROME (Primary Dx); CHRONIC AIRWAY OBSTRUCTION NEC (CMS/HCC); ROTATOR CUFF SYND NOS Social History Tobacco Use Types Packs/Day Years Used Date Smoking Tobacco: Never Assessed Comments Unknown Sex and Gender Information Value Date Recorded Sex Assigned at Not on file Legal Sex Female 5:51 AM CAM MAKER Gender Identity Not on file Sexual Orientation Not on file documented as of this encounter Plan of Treatment Not on file documented as of this encounter Visit Diagnoses Diagnosis Carpal tunnel syndrome- Primary Chronic airway obstruction, not elsewhere classified (CMS/HCC) Chronic airway obstruction, not elsewhere classified Disorders of bursae and tendons in shoulder region, unspecified documented in this encounter Care Teams Cornetist Relationship Specialty Start Date End Date Lauri Krishnan MD [address] [address] PCP - General Family Practice 12/24/18 documented as of this encounter
--- OUTSIDE RECORDS SUMMARY | 2025-01-10 13:34 | XMS_ITS | Encounter Summary ---
Author Organization [facility] Address [address] [place] [address] Care Team Providers Care Absence Management Consultant Name Role Phone Lauri Krishnan MD Primary Care Provider [phone] Encounter Details Date Type Department Care Team (Late st Contact Info) Description 09/08/1997 Outpatient Historical HIS [facility] PLASTIC SURGERY Social History Tobacco Use Types Packs/Day Years Used Date Smoking Tobacco: Never Assessed Comments Unknown Sex and Gender Information Value Date Recorded Sex Assigned at Not on file Legal Sex Female 5:51 AM SCULPTURE INSTRUCTOR Gender Identity Not on file Sexual Orientation Not on file documented as of this encounter Plan of Treatment Not on file documented as of this encounter Visit Diagnoses Not on filedocumented in this encounter Care Teams Absence Management Consultant Relationship Specialty Start Date End Date Lauri Krishnan MD [address] [phone] PCP - General Family Practice 12/24/18 documented as of this encounter
--- OUTSIDE RECORDS SUMMARY | 2025-01-10 13:34 | XMS_ITS | Encounter Summary ---
Author Organization [facility] Address [address] [place] [address] Care Team Providers Care Cold Water Machine Operator Name Role Phone Lauri Krishnan MD Primary Care Provider [phone] Encounter Details Date Type Department Care Team (Latest Contact Info) Description 04/22/2002 Outpatient Historical [facility] Lavelle Lopez Jr., MD [address] [place] [address] POSTMENOPAUSAL HORMONAL REPLACMT (Primary Dx); Routine medical exam; ESOPHAGEAL REFLUX; NONSPECIF SKIN ERUPT NEC Social History Tobacco Use Types Packs/Day Years Used Date Smoking Tobacco: Never Assessed Comments Unknown Sex and Gender Information Value Date Recorded Sex Assigned at Not on file Legal Sex Female 5:51 AM CROZER OPERATOR Gender Identity Not on file Sexual Orientation Not on file documented as of this encounter Plan of Treatment Not on file documented as of this encounter Visit Diagnoses Diagnosis Need for prophylactic hormone replacement therapy (postmenopausal)- Primary Routine medical exam Routine general medical examination at a health care facility Esophageal reflux Rash and other nonspecific skin eruption documented in this encounter Care Teams Cold Water Machine Operator Relationship Specialty Start Date End Date Lauri Krishnan MD [address] [phone] PCP - General Family Practice 12/24/18 documented as of this encounter
--- OUTSIDE RECORDS SUMMARY | 2025-01-10 13:34 | XMS_ITS | Encounter Summary ---
Author Organization [facility] Address [address] [place] [address] Care Team Providers Care Office Manager Receptionist Name Role Phone Lauri Krishnan MD Primary Care Provider Encounter Details Date Type Department Care Team (Latest Contact Info) Description 06/05/2000 Outpatient Historical HIS [facility] Lavelle Lopez Jr., MD [address] [place] [address] Gynecologic examination (Primary Dx); Screening for malignant neoplasm of the cervix; Screening for other and unspecified cardiovascular conditions; Special screening for malignant neoplasms of other sites; Screening for nephropathy Social History Tobacco Use Types Packs/Day Years Used Date Smoking Tobacco: Never Assessed Comments Unknown Sex and Gender Information Value Date Recorded Sex Assigned at Not on file 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 Gender Identity Not on file Sexual Orientation Not on file documented as of this encounter Plan of Treatment Not on file documented as of this encounter Visit Diagnoses Diagnosis Gynecologic examination- Primary Gynecological examination Screening for malignant neoplasm of the cervix Screening for other and unspecified cardiovascular conditions Special screening for malignant neoplasms of other sites Screening for nephropathy documented in this encounter Care Teams Office Manager Receptionist Relationship Specialty Start Date End Date Lauri Krishnan MD [address] [phone] PCP - General Family Practice 12/24/18 documented as of this encounter
--- OUTSIDE RECORDS SUMMARY | 2025-01-10 13:34 | XMS_ITS | Encounter Summary ---
Author Organization [facility] Address [address] [place] [address] Care Team Providers Care Varnish Thinner Name Role Phone Lauri Krishnan MD Primary Care Provider [phone] Encounter Details Date Type Department Care Team (Latest Contact Info) Description 02/20/2001 Outpatient Historical HIS [facility] Lavelle Lopez Jr., MD [address] [place] [address] Edema (Primary Dx); Osteoarthrosis, unspecified whether generalized or localized, unspecified site Social History Tobacco Use Types Packs/Day Years Used Date Smoking Tobacco: Never Assessed Comments Unknown Sex and Gender Information Value Date Recorded Sex Assigned at Not on file 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
--- OUTSIDE RECORDS SUMMARY | 2025-01-10 13:34 | XMS_ITS | Encounter Summary ---
Author Organization [facility] Address [address] [place] [address] Care Team Providers Care Red Leader Name Role Phone Lauri Krishnan MD Primary Care Provider Encounter Details Date Type Department Care Team (Latest Contact Info) Description 06/27/2001 Outpatient Historical HIS [facility] Lavelle Lopez Jr., MD [address] [place] [address] HEMATURIA (Primary Dx); BRONCHITIS NOS; TOBACCO USE DISORDER Social History Tobacco Use Types Packs/Day Years Used Date Smoking Tobacco: Never Assessed Comments Unknown Sex and Gender Information Value Date Recorded Sex Assigned at Not on file 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
--- OUTSIDE RECORDS SUMMARY | 2025-01-10 13:34 | XMS_ITS | Encounter Summary ---
Author Organization [facility] Address [address] [place] [address] Care Team Providers Care Sand Cleaning Machine Operator Name Role Phone Lauri Krishnan MD Primary Care Provider [phone] Encounter Details Date Type Department Care Team (Latest Contact Info) Description 11/04/2000 Outpatient Historical HIS [facility] Lavelle Lopez Jr., MD [address] [place] [address] Bronchitis, not specified as acute or chronic (Primary Dx); Acute pharyngitis Social History Tobacco Use Types Packs/Day Years Used Date Smoking Tobacco: Never Assessed Comments Unknown Sex and Gender Information Value Date Recorded Sex Assigned at Not on file 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
--- OUTSIDE RECORDS SUMMARY | 2025-01-10 13:34 | XMS_ITS | Encounter Summary ---
Author Organization [facility] Address [address] [place] [address] Care Team Providers Care Healthcare Specialist Name Role Phone Lauri Krishnan MD Primary Care Provider [phone] Encounter Details Date Type Department Care Team (Latest Contact Info) Description 07/08/2002 Outpatient Historical HIS [facility] Lavelle Lopez Jr., MD [address] [place] [address] ABDOMINAL PAIN UNSPEC SITE (Primary Dx); BRONCHITIS NOS; SCREENING-CARDIOVASC NEC Social History Tobacco Use Types Packs/Day Years Used Date Smoking Tobacco: Never Assessed Comments Unknown Sex and Gender Information Value Date Recorded Sex Assigned at Not on file 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
--- OUTSIDE RECORDS SUMMARY | 2025-01-10 13:34 | XMS_ITS | Encounter Summary ---
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
--- OUTSIDE RECORDS SUMMARY | 2025-01-10 13:34 | XMS_ITS | Encounter Summary ---
Author Organization [facility] Address [address] [place] [address] Care Team Providers Care Global Coordinator Name Role Phone Lauri Krishnan MD Primary Care Provider [phone] Encounter Details Date Type Department Care Team (Latest Contact Info) Description 05/16/2000 Outpatient Historical HIS [facility] Lavelle Lopez Jr., MD [address] [place] [address] Migraine, unspecified, without mention of intractable migraine without mention of status migrainosus (Primary Dx); Unspecified asthma(493.90); Need for prophylactic vaccination with tetanus-diphtheria (Td) Social History Tobacco Use Types Packs/Day Years Used Date Smoking Tobacco: Never Assessed Comments Unknown Sex and Gender Information Value Date Recorded Sex Assigned at Not on file 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 Gender Identity Not on file Sexual Orientation Not on file documented as of this encounter Plan of Treatment Not on file documented as of this encounter Visit Diagnoses Diagnosis Migraine, unspecified, without mention of intractable migraine without mention of status migrainosus- Primary Unspecified asthma(493.90) Unspecified asthma Need for prophylactic vaccination with tetanus-diphtheria (Td) documented in this encounter Care Teams Global Coordinator Relationship Specialty Start Date End Date Lauri Krishnan MD [address] [phone] PCP - General Family Practice 12/24/18 documented as of this encounter
--- OUTSIDE RECORDS SUMMARY | 2025-01-10 13:34 | XMS_ITS | Encounter Summary ---
Author Organization [facility] Address [address] [place] [address] Care Team Providers Care Coke Still Cleaner Name Role Phone Lauri Krishnan MD Primary Care Provider [phone] Encounter Details Date Type Department Care Team (Latest Contact Info) Description 11/12/2001 Outpatient Historical HIS [facility] CelioPraful MD [address] [facility] [address] [place] [address] CHOLELITHIASIS NOS (Primary Dx); SURGERY FOLLOWUP, UNSPEC Social History Tobacco Use Types Packs/Day Years Used Date Smoking Tobacco: Never Assessed Comments Unknown Sex and Gender Information Value Date Recorded Sex Assigned at Not on file 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
--- OUTSIDE RECORDS SUMMARY | 2025-01-10 13:34 | XMS_ITS | Encounter Summary ---
Author Organization [facility] Address [address] [place] [address] Care Team Providers Care Photographer Helper Name Role Phone Lauri Krishnan MD Primary Care Provider Encounter Details Date Type Department Care Team (Late st Contact Info) Description 06/16/2003 Outpatient Historical HIS [facility] David Lau MD [address] [facility] [address] [place] [address] CARPAL TUNNEL SYNDROME (Primary Dx) Social History Tobacco Use Types Packs/Day Years Used Date Smoking Tobacco: Never Assessed Comments Unknown Sex and Gender Information Value Date Recorded Sex Assigned at Not on file Legal Sex Female 5:51 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
--- OUTSIDE RECORDS SUMMARY | 2025-01-10 13:34 | XMS_ITS | Encounter Summary ---
Author Organization [facility] Address [address] [place] [address] Care Team Providers Care Transfer Clerk Name Role Phone Lauri Krishnan MD Primary Care Provider [phone] Encounter Details Date Type Department Care Team (Latest Contact Info) Description 10/08/2002 Outpatient Historical HIS [facility] Lavelle Lopez Jr., MD [address] [place] [address] ESOPHAGEAL REFLUX (Primary Dx); DEPRESSIVE DISORDER NEC Social History Tobacco Use Types Packs/Day Years Used Date Smoking Tobacco: Never Assessed Comments Unknown Sex and Gender Information Value Date Recorded Sex Assigned at Not on file 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
--- OUTSIDE RECORDS SUMMARY | 2025-01-10 13:34 | XMS_ITS | Encounter Summary ---
Author Organization [facility] Address [address] [place] [address] Care Team Providers Care Parking Lot Supervisor Name Role Phone Lauri Krishnan MD Primary Care Provider [phone] Encounter Details Date Type Department Care Team (Latest Contact Info) Description 06/14/2000 Outpatient Historical HIS [facility] Lavelle Lopez Jr., MD [address] [place] [address] Abdominal pain, unspecified site (Primary Dx) Social History Tobacco Use Types Packs/Day Years Used Date Smoking Tobacco: Never Assessed Comments Unknown Sex and Gender Information Value Date Recorded Sex Assigned at Not on file 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
--- NOTE | 2025-01-10 13:39 | ECG_ITS ---
[facility]: 2025[facility]01[facility]10 Pat Name: Nhung Leone Department: Room: Gender: Female Collections And Archives Director: : 1965 Requested By: Brenda Leonard Order Number: [id number] Apoorva MD: Gilmar Malhotra M.D. Measurements Intervals [place] Rate: 91 P: 72 [place]: 149 QRS: 87 QRSD: 79 T: 79 QT: 348 QTc: 429 Interpretive Statements SINUS RHYTHM INTERPRETATION BASED ON A DEFAULT AGE OF 40 YEARS Compared to ECG 12/19/2024 15:00:03 Sinus arrhythmia no longer present Electronically Signed On 01-12-2025 10:01:20 CDT by Gilmar Malhotra M.D. [email or web address]
--- NOTE | 2025-01-10 13:39 | XRR_ITS ---
PROCEDURE INFORMATION: Exam: XR Chest Exam date and time: 01/10/2025 3:21 PM Age: 59 years old Clinical indication: Shortness of breath; Additional info: SOB TECHNIQUE: Imaging protocol: Radiologic exam of the chest. Views: 1 view. COMPARISON: CR (CHEST, ) 12/19/2024 3:05 PM FINDINGS: Lungs: Unremarkable. No consolidation. Unchanged small calcified granuloma in the right lower lung zone. Pleural spaces: Unremarkable. No pleural effusion. No pneumothorax. Heart/Mediastinum: Unremarkable. No cardiomegaly. Bones/joints: Unremarkable. XR/XR chest 1V portable [id number] IMPRESSION: No acute findings.
[2025-01-10 14:35] LABS: Hematocrit 38.5 % (36-47); Hemoglobin 12.30 g/dL (11.27-16.99); Mean Corpuscular HGB Conc 31.9 g/dL (30-55); Mean Corpuscular Hemoglobin 28.0 pg (27-33); Mean Corpuscular Volume 87.5 fl (85-98); Nucleated Red Blood Cells % 0 %; Platelet Count 297 10^3/cmm (157-399); Red Blood Count 4.40 10^6/uL (3.85-5.65); White Blood Count 7.49 10^3/uL (3.29-11.43)
[2025-01-10 15:03] LABS: Alanine Aminotransferase 10 U/L (0-33); Albumin Level 4.2 g/dL (3.5-5.2); Alkaline Phosphatase 152 U/L (35-105); Anion Gap 18.8 (5-19); Aspartate Amino Transferase 12 U/L (0-32); Blood Urea Nitrogen 11 mg/dL (6-20); Calcium 9.3 mg/dL (8.5-10.5); Carbon Dioxide 24 mmol/L (22-29); Chloride 102 mmol/L (98-107); Creatinine Clr Calc Pharmacy 77.1832; Globulin 2.9 g/dL (1.3-4.6); Glucose 115 mg/dL (65-115); NT Pro B Type Natriuretic Pept 95 pg/mL (0-125); Osmolality Calculated 292 mOsm/kg (285-295); Potassium 3.8 mmol/L (3.5-5.1); Sodium 141 mmol/L (136-145); Total Protein 7.1 g/dL (6.6-8.7)
[2025-01-10] MEDS: methylPREDNISolone sod succ 125 mg/2 mL INJ IVP (15:03)
--- NOTE | 2025-01-10 15:17 | W.ED.SOB ---
HPI - SOB/Dyspnea General: Chief Complaint: Shortness of Breath/Dyspnea Stated Complaint: SOB Time Seen by Provider: 01/10/25 14:43 Source: patient Mode of arrival: ambulatory Limitations: no limitations History of Present Illness: HPI Narrative: 59-year-old female has a history of COPD states been having increasing shortness of breath over the last 2 days. She states that she has had wheezing and a dry cough. She has not been having to wear any oxygen she does have oxygen she wears as needed at home. She denies any pain denies any fevers. Associated symptoms: Deny abdominal pain, chest pain, fever(s), nausea or vomiting Related Data Home Medications ?Medication ?Instructions ?Recorded ?Confirmed cetirizine 10 mg tablet (Zyrtec) 10 mg PO QAM 01/03/23 12/19/24 fluoxetine 40 mg capsule 40 mg PO QAM 01/04/23 12/19/24 trazodone 50 mg tablet 50 mg PO BEDTIME PRN Sleep 01/04/23 12/19/24 azelastine 137 mcg (0.1 %) nasal 1 spray intranasal BID@0700,2200 05/09/24 12/19/24 spray PRN Allergy Symptoms aripiprazole 2 mg tablet 2 mg PO DAILY 05/24/24 12/19/24 clopidogrel 75 mg tablet 75 mg PO DAILY 05/24/24 12/19/24 fluticasone propionate 50 1 spray intranasal BID@07,22 PRN 05/24/24 12/19/24 mcg/actuation nasal allergies spray,suspension (Flonase Allergy Relief) formoterol fumarate 20 mcg/2 mL 20 mcg inhalation Q12H PRN 05/24/24 12/19/24 solution for nebulization Shortness Of Breath (Perforomist) rosuvastatin 40 mg tablet 40 mg PO BEDTIME 05/24/24 12/19/24 spironolactone 25 mg tablet 25 mg PO DAILY 05/24/24 12/19/24 albuterol sulfate 90 mcg/actuation 2 puff inhalation Q4H PRN 12/19/24 12/19/24 aerosol inhaler Shortness Of Breath Previous Rx's ?Medication ?Instructions ?Recorded nitroglycerin 0.4 mg sublingual 0.4 mg sublingual Q5M PRN chest 06/21/22 tablet pain #25 tabs pantoprazole 40 mg tablet,delayed 40 mg PO BID #90 tabs 08/13/22 release montelukast 10 mg tablet 10 mg PO DAILY #90 tabs 08/31/22 (Singulair) ipratropium 0.5 mg-albuterol 3 mg 3 ml inhalation Q4H PRN wheezing 07/18/23 (2.5 mg base)/3 mL nebulization #180 mL soln omalizumab 150 mg/mL subcutaneous 300 mg (2 mL) SUBCUT Q14D #2 mL 12/24/23 syringe (Xolair) furosemide 40 mg tablet 40 mg PO DAILY #30 tabs 05/12/24 potassium chloride 20 mEq 20 meq PO QAM #15 tabs 05/12/24 tablet,extended release(part/cryst) atorvastatin 80 mg tablet 80 mg PO QAM #90 tabs 07/28/24 azithromycin 500 mg tablet See Rx Instructions PO .COMPLEX #3 12/19/24 tabs prednisone 5 mg tablets in a dose See Rx Instructions PO .COMPLEX 12/19/24 pack #36 ea Allergies Allergy/AdvReac Type Severity Reaction Status Date / Time doxycycline Allergy Intermediate ALGY-Hives Verified 01/10/25 13:46 Iodinated Contrast Media Allergy Intermediate ALGY-Hives Verified 01/10/25 13:46 codeine Allergy Unknown Unknown Verified 01/10/25 13:46 Sulfa (Sulfonamide Allergy Unknown Unknown Verified 01/10/25 13:46 Antibiotics) gabapentin Allergy Unknown Verified 01/10/25 13:46 Review of Systems Const: Denies: fever(s), chills, body aches or change in appetite ENMT: Denies: throat pain or dental pain Card: Denies: chest pain Resp: Reports: dyspnea and non-productive cough GI: Denies: abdominal pain, nausea, vomiting or diarrhea : Denies: dysuria Musc: Denies: neck pain or back pain Skin/Breast: Denies: rash Neuro: Denies: headache(s) All/Imm: Denies: urticaria or acute wheezing PFSH ED PFSH: Medical History Disorders of diaphragm Nicotine addiction CAD (coronary artery disease) (~12/2019) -Known history of CAD with recent stenting of LAD due to anterior wall STEMI in December -Follows up with Dr. Salcedo; f/u in [address] Bass Essential (primary) hypertension -VSS; continue to monitor -continue oral antihypertensives Hypomagnesemia Hypokalemia Encounter for chronic pain management Diastolic congestive heart failure Shortness of breath Severe persistent asthma Closed fracture distal radius and ulna Insomnia Hyperlipidemia Smokers' cough Acute exacerbation of CHF (congestive heart failure) Normocytic anemia -Seems to have intermittent normocytic anemia with a baseline hemoglobin of about 10-11, intermittently normal -Has been on dual antiplatelet therapy given recent stenting -Continue to monitor H&H closely; stable so far -iron and ferritin low; start on iron replacement Asthma -severe persistent, started xolair 02/04/2020 -follow up with Dr. West New onset of congestive heart failure -Could be secondary to recent STEMI requiring intervention with stenting of LAD last month -Echo: EF=57%, normal systolic and diastolic function, no RWMA, trace TR, trace NV -has been on IV diuresis with Lasix; switched to oral lasix -Continue to monitor electrolytes and renal function -Daily weights, monitor ins and outs -BNP elevated at 948 -Chest x-ray reported as unremarkable -Close monitoring of respiratory status, supplemental oxygen as needed Methadone maintenance therapy patient Acute anterior wall IN Chronic post-traumatic stress disorder Generalized anxiety disorder Major depressive disorder, recurrent severe without psychotic features Chronic radicular lumbar pain Herniated disc Sleep apnea, unspecified Lesion of ulnar nerve, bilateral COPD (chronic obstructive pulmonary disease) -no acute exacerbation -does not appear to be oxygen dependent at baseline -recently restarted smoking, 1/2 PPD KRISTOFER on CPAP GERD (gastroesophageal reflux disease) -on PPI Surgical History H/O oral surgery S/P section Presence of stent in LAD coronary artery (01/23/20) H/O bilateral oophorectomy History of cholecystectomy History of carpal tunnel release H/O skin graft Family History Father Myocardial infarct, Onset Age: 45 Brother Myocardial infarct, Onset Age: 53 Other CAD (coronary artery disease) Closed fracture distal radius and ulna Social History Smoking and tobacco/nicotine status: current every day tobacco/nicotine user cigarettes Packs smoked per day: 1 Years cigarettes smoked: 43 Second hand smoke exposure: Yes Alcohol intake: former Substance/Drug Use: never Lives independently: Yes Household members: family Marital status: Current occupational status: disabled Do you think of yourself as: Straight/Heterosexual Current gender identity: Female Physical Exam Const: COMMON NORMALS: patient oriented x3 HENMT: COMMON NORMALS: normocephalic and atraumatic HEAD & SCALP: normocephalic and atraumatic Eye: COMMON NORMALS: Equal, round and reactive pupils present and EOMs intact bilaterally PUPIL: Yes Equal, round and reactive pupils present Neck/C-Spine: COMMON NORMALS: full ROM and supple Chest: COMMONS NORMALS: normal inspection of the chest Resp: COMMON NORMALS: No retractions and No use of accessory muscles AUSCULTATION: wheezes Cardio: COMMON NORMALS: regular rate, regular rhythm and No murmurs present (Cardio) RATE: regular rate RHYTHM: regular rhythm Extremity: COMMON NORMALS: normal to inspection and full ROM Neuro: COMMON NORMALS: patient oriented x3, moves all extremities and no focal motor deficits Psych: COMMON NORMALS: mental status grossly normal, Normal thought process present and cooperative THOUGHT PROCESS: Normal thought process present Skin: COMMON NORMALS: no rashes or lesions noted and no wounds GENERAL SKIN EXAM: no rashes or lesions noted Course Vital Signs: Vital signs: Vital Signs Temperature 98.1 F 01/10/25 13:37 Pulse Rate 97 01/10/25 16:09 Respiratory Rate 18 01/10/25 16:09 Blood Pressure 105/57 01/10/25 16:09 Pulse Oximetry 96 01/10/25 16:09 Oxygen Delivery Me thod Room Air 01/10/25 16:09 MDM - SOB/Dyspnea Medical Decision Making Patient presents here with wheezing shortness of breath likely COPD exacerbation still has quite bit of wheezing with increased work of breathing even after breathing treatment she states she had finished a steroid course on Saturday will admit for observation for failed outpatient treatment Medical Records I reviewed the patient's medical records. Lab Data I reviewed the patient's lab results. 01/10/25 14:13 01/10/25 14:13 Labs/Radiology: Laboratory Results WBC 7.49 10^3/uL (3.29-11.43) 01/10/25 14:13 RBC 4.40 10^6/uL (3.85-5.65) 01/10/25 14:13 Hgb 12.30 g/dL (11.27-16.99) 01/10/25 14:13 Hct 38.5 % (36-47) 01/10/25 14:13 MCV 87.5 fl (85-98) 01/10/25 14:13 MCH 28.0 pg (27-33) 01/10/25 14:13 MCHC 31.9 g/dL (30-55) 01/10/25 14:13 RDW 15.2 % (12.1-15.1) H 01/10/25 14:13 Plt Count 297 10^3/cmm (157-399) 01/10/25 14:13 MPV 11.1 fL (7.4-10.4) H 01/10/25 14:13 Neut % (Auto) 56.5 % 01/10/25 14:13 Lymph % (Auto) 31.8 % 01/10/25 14:13 George % (Auto) 7.5 % 01/10/25 14:13 Eos % (Auto) 3.1 % 01/10/25 14:13 Baso % (Auto) 0.7 % 01/10/25 14:13 Neut # (Auto) 4.24 10^3/uL (1.8-7.7) 01/10/25 14:13 Lymph # (Auto) 2.4 10^3/uL (0.8-4.8) 01/10/25 14:13 George # (Auto) 0.6 10^3/uL (0.2-0.9) 01/10/25 14:13 Eos # (Auto) 0.2 10^3/uL (0.0-0.8) 01/10/25 14:13 Baso # (Auto) 0.1 10^3/uL (0.0-0.1) 01/10/25 14:13 Nucleated RBC % (auto) 0 % 01/10/25 14:13 Nucleated RBCs # 0.0 /100WBC 01/10/25 14:13 Sodium 141 mmol/L (136-145) 01/10/25 14:13 Potassium 3.8 mmol/L (3.5-5.1) 01/10/25 14:13 Chloride 102 mmol/L (98-107) 01/10/25 14:13 Carbon Dioxide 24 mmol/L (22-29) 01/10/25 14:13 Anion Gap 18.8 (5-19) 01/10/25 14:13 BUN 11 mg/dL (6-20) 01/10/25 14:13 Creatinine 0.8 mg/dL (0.5-0.9) 01/10/25 14:13 GFR Calculation 73.4 mL/min (90-130) L 01/10/25 14:13 Glucose 115 mg/dL (65-115) 01/10/25 14:13 Calculated Osmolality 292 mOsm/kg (285-295) 01/10/25 14:13 Calcium 9.3 mg/dL (8.5-10.5) 01/10/25 14:13 Total Bilirubin 0.4 mg/dL (0.15-1.2) 01/10/25 14:13 AST 12 U/L (0-32) 01/10/25 14:13 ALT 10 U/L (0-33) 01/10/25 14:13 Alkaline Phosphatase 152 U/L (35-105) H 01/10/25 14:13 NT-Pro-B Natriuret Pep 95 pg/mL (0-125) 01/10/25 14:13 Total Protein 7.1 g/dL (6.6-8.7) 01/10/25 14:13 Albumin 4.2 g/dL (3.5-5.2) 01/10/25 14:13 Globulin 2.9 g/dL (1.3-4.6) 01/10/25 14:13 XR interpretation done by ED provider, pending radiology final review ED provider radiology interpretation(s): cxr: no pneumonia Discharge Plan Discharge Patient Disposition: Placed in Observation Clinical Impression: Acute exacerbation of chronic obstructive airways disease Coding Level of Care Code ED Creative Developer for Gracie Laguna
--- OUTSIDE RECORDS SUMMARY | 2025-01-10 16:56 | XMS_ITS | Encounter Summary ---
Author Organization [facility] Address [address] [place] [address] Care Team Providers Care Metal Sprayer Protective Coating Name Role Phone Lauri Krishnan MD Primary Care Provider [phone] Encounter Details Date Type Department Care Team (Late st Contact Info) Description 08/03/2003 Outpatient Historical HIS [facility] David Lau MD [address] [facility] [address] [place] [address] PLASTIC SURGERY NEC (Primary Dx); POSTSURG AFTERCARE OTHER SPECIFIED Social History Tobacco Use Types Packs/Day Years Used Date Smoking Tobacco: Never Assessed Comments Unknown Sex and Gender Information Value Date Recorded Sex Assigned at Not on file Legal Sex Female 5:51 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
--- OUTSIDE RECORDS SUMMARY | 2025-01-10 16:56 | XMS_ITS | Encounter Summary ---
Author Organization [facility] Address [address] [place] [address] Care Team Providers Care Electronics Processor Name Role Phone Lauri Krishnan MD Primary Care Provider [phone] Encounter Details Date Type Department Care Team (Latest Contact Info) Description 03/19/2002 Outpatient Historical HIS [facility] Gunnar Mcintyre MD [address] [place] [address] MIGRAINE NOS W/O MENTN INTRACTABLE (Primary Dx) Social History Tobacco Use Types Packs/Day Years Used Date Smoking Tobacco: Never Assessed Comments Unknown Sex and Gender Information Value Date Recorded Sex Assigned at Not on file Legal Sex Female 5:51 AM AGENCY TRAINER Gender Identity Not on file Sexual Orientation Not on file documented as of this encounter Plan of Treatment Not on file documented as of this encounter Visit Diagnoses Diagnosis Migraine, unspecified, without mention of intractable migraine without mention of status migrainosus- Primary documented in this encounter Care Teams Electronics Processor Relationship Specialty Start Date End Date Lauri Krishnan MD [address] [phone] PCP - General Family Practice 12/24/18 documented as of this encounter
--- OUTSIDE RECORDS SUMMARY | 2025-01-10 16:56 | XMS_ITS | Encounter Summary ---
Author Organization [facility] Address [address] [place] [address] Care Team Providers Care Pottery Decorator Name Role Phone Lauri Krishnan MD Primary Care Provider [phone] Encounter Details Date Type Department Care Team (Late st Contact Info) Description 07/08/2002 Outpatient Historical HIS [facility] Lavelle Lopez Jr., MD [address] [place] [address] ABDOMINAL PAIN UNSPEC SITE (Primary Dx) Social History Tobacco Use Types Packs/Day Years Used Date Smoking Tobacco: Never Assessed Comments Unknown Sex and Gender Information Value Date Recorded Sex Assigned at Not on file Legal Sex Female 5:51 AM EQUIPMENT SERVICES ASSOCIATE Gender Identity Not on file Sexual Orientation Not on file documented as of this encounter Plan of Treatment Not on file documented as of this encounter Visit Diagnoses Diagnosis Abdominal pain, unspecified site- Primary documented in this encounter Care Teams Pottery Decorator Relationship Specialty Start Date End Date Lauri Krishnan MD [address] [facility] [address] [place] [phone] PCP - General Family Practice 12/24/18 documented as of this encounter
--- OUTSIDE RECORDS SUMMARY | 2025-01-10 16:56 | XMS_ITS | Encounter Summary ---
Author Organization [facility] Address [address] [place] [address] Care Team Providers Care Anesthesiologist Assistant Certified Name Role Phone Lauri Krishnan MD Primary Care Provider [phone] Encounter Details Date Type Department Care Team (Latest Contact Info) Description 06/14/2000 Outpatient Historical HIS [facility] Lavelle Lopez Jr., MD [address] [place] [address] Abdominal pain, unspecified site (Primary Dx) Social History Tobacco Use Types Packs/Day Years Used Date Smoking Tobacco: Never Assessed Comments Unknown Sex and Gender Information Value Date Recorded Sex Assigned at Not on file Legal Sex Female 5:51 AM 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
--- OUTSIDE RECORDS SUMMARY | 2025-01-10 16:56 | XMS_ITS | Encounter Summary ---
Author Organization [facility] Address [address] [place] [address] Care Team Providers Care Thermoplastic Technician Name Role Phone Lauri Krishnan MD Primary Care Provider [phone] Encounter Details Date Type Department Care Team (Latest Contact Info) Description 10/08/2002 Outpatient Historical HIS [facility] Lavelle Lopez Jr., MD [address] [place] [address] ESOPHAGEAL REFLUX (Primary Dx); DEPRESSIVE DISORDER NEC Social History Tobacco Use Types Packs/Day Years Used Date Smoking Tobacco: Never Assessed Comments Unknown Sex and Gender Information Value Date Recorded Sex Assigned at Not on file Legal Sex Female 5:51 AM PARTS ASSEMBLER Gender Identity Not on file Sexual Orientation Not on file documented as of this encounter Plan of Treatment Not on file documented as of this encounter Visit Diagnoses Diagnosis Esophageal reflux- Primary Depressive disorder, not elsewhere classified documented in this encounter Care Teams Thermoplastic Technician Relationship Specialty Start Date End Date Lauri Krishnan MD [address] [phone] PCP - General Family Practice 12/24/18 documented as of this encounter
--- OUTSIDE RECORDS SUMMARY | 2025-01-10 16:56 | XMS_ITS | Encounter Summary ---
Author Organization [facility] Address [address] [place] [address] Care Team Providers Care Printed Circuit Board Designer Name Role Phone Lauri Krishnan MD Primary Care Provider [phone] Encounter Details Date Type Department Care Team (Latest Contact Info) Description 07/20/2002 Outpatient Historical HIS [facility] CelioPraful MD [address] [facility] [address] [place] [address] Diaphragmatic hernia (Primary Dx); HEARTBURN; ABDOMINAL PAIN EPIGASTRIC Social History Tobacco Use Types Packs/Day Years Used Date Smoking Tobacco: Never Assessed Comments Unknown Sex and Gender Information Value Date Recorded Sex Assigned at Not on file Legal Sex Female 5:51 AM ARCHITECTURAL DRAFTER Gender Identity Not on file Sexual Orientation Not on file documented as of this encounter Plan of Treatment Not on file documented as of this encounter Visit Diagnoses Diagnosis Diaphragmatic hernia- Primary Diaphragmatic hernia without mention of obstruction or gangrene Heartburn Abdominal pain, epigastric documented in this encounter Care Teams Printed Circuit Board Designer Relationship Specialty Start Date End Date Lauri Krishnan MD [address] [facility] [address] [place] [address] PCP - General Family Practice 12/24/18 documented as of this encounter
--- OUTSIDE RECORDS SUMMARY | 2025-01-10 16:56 | XMS_ITS | Encounter Summary ---
Author Organization [facility] Address [address] [place] [address] Care Team Providers Care Wheelchair Van Operator First Responder Name Role Phone Lauri Krishnan MD Primary Care Provider [phone] Encounter Details Date Type Department Care Team (Latest Contact Info) Description 03/28/1998 Outpatient Historical HIS [facility] Richard Horner MD NO ADDRESS ON FILE Other specified aftercare following surgery (Primary Dx) Social History Tobacco Use Types Packs/Day Years Used Date Smoking Tobacco: Never Assessed Comments Unknown Sex and Gender Information Value Date Recorded Sex Assigned at Not on file Legal Sex Female 5:51 AM TOOLROOM KEEPER Gender Identity Not on file Sexual Orientation Not on file documented as of this encounter Plan of Treatment Not on file documented as of this encounter Visit Diagnoses Diagnosis Other specified aftercare following surgery- Primary documented in this encounter Care Teams Wheelchair Van Operator First Responder Relationship Specialty Start Date End Date Lauri Krishnan MD [address] [phone] PCP - General Family Practice 12/24/18 documented as of this encounter
--- OUTSIDE RECORDS SUMMARY | 2025-01-10 16:56 | XMS_ITS | Encounter Summary ---
Author Organization [facility] Address [address] [place] [address] Care Team Providers Care Literacy Teacher Name Role Phone Lauri Krishnan MD Primary Care Provider [phone] Encounter Details Date Type Department Care Team (Latest Contact Info) Description 04/09/2003 Outpatient Historical HIS [facility] Lavelle Lopez Jr., MD [address] [place] [address] BRONCHITIS NOS (Primary Dx); Pure hypercholesterolem; TOBACCO USE DISORDER; Vaccine for influenza Social History Tobacco Use Types Packs/Day Years Used Date Smoking Tobacco: Never Assessed Comments Unknown Sex and Gender Information Value Date Recorded Sex Assigned at Not on file Legal Sex Female 5:51 AM ENTREPRENEUR Gender Identity Not on file Sexual Orientation Not on file documented as of this encounter Plan of Treatment Not on file documented as of this encounter Visit Diagnoses Diagnosis Bronchitis, not specified as acute or chronic- Primary Pure hypercholesterolem Pure hypercholesterolemia Tobacco use disorder Vaccine for influenza Need for prophylactic vaccination and inoculation against influenza documented in this encounter Care Teams Literacy Teacher Relationship Specialty Start Date End Date Lauri Krishnan MD [address] [phone] PCP - General Family Practice 12/24/18 documented as of this encounter
--- OUTSIDE RECORDS SUMMARY | 2025-01-10 16:56 | XMS_ITS | Encounter Summary ---
Author Organization [facility] Address [address] [place] [address] Care Team Providers Care Food Or Baggage Handling Rampman Name Role Phone Lauri Krishnan MD Primary Care Provider Encounter Details Date Type Department Care Team (Latest Contact Info) Description 05/16/2000 Outpatient Historical HIS [facility] Lavelle Lopez Jr., MD [address] [place] [address] Migraine, unspecified, without mention of intractable migraine without mention of status migrainosus (Primary Dx); Unspecified asthma(493.90); Need for prophylactic vaccination with tetanus-diphtheria (Td) Social History Tobacco Use Types Packs/Day Years Used Date Smoking Tobacco: Never Assessed Comments Unknown Sex and Gender Information Value Date Recorded Sex Assigned at Not on file Legal Sex Female 5:51 AM CLIENT APPLICATION SUPPORT SPECIALIST Gender Identity Not on file Sexual Orientation Not on file documented as of this encounter Plan of Treatment Not on file documented as of this encounter Visit Diagnoses Diagnosis Migraine, unspecified, without mention of intractable migraine without mention of status migrainosus- Primary Unspecified asthma(493.90) Unspecified asthma Need for prophylactic vaccination with tetanus-diphtheria (Td) documented in this encounter Care Teams Food Or Baggage Handling Rampman Relationship Specialty Start Date End Date Lauri Krishnan MD [address] [address] PCP - General Family Practice 12/24/18 documented as of this encounter
--- OUTSIDE RECORDS SUMMARY | 2025-01-10 16:56 | XMS_ITS | Encounter Summary ---
Author Organization [facility] Address [address] [place] [address] Care Team Providers Care Manager Search Name Role Phone Lauri Krishnan MD Primary Care Provider Encounter Details Date Type Department Care Team (Late st Contact Info) Description 06/29/2003 Outpatient Historical HIS [facility] David Lau MD [address] [facility] [address] [place] [address] POSTSURG AFTERCARE OTHER SPECIFIED (Primary Dx) Social History Tobacco Use Types Packs/Day Years Used Date Smoking Tobacco: Never Assessed Comments Unknown Sex and Gender Information Value Date Recorded Sex Assigned at Not on file Legal Sex Female 5:51 AM INTERVENTIONIST Gender Identity Not on file Sexual Orientation Not on file documented as of this encounter Plan of Treatment Not on file documented as of this encounter Visit Diagnoses Diagnosis Other specified aftercare following surgery- Primary documented in this encounter Care Teams Manager Search Relationship Specialty Start Date End Date Lauri Krishnan MD [address] [facility] 1 [place] [address] PCP - General Family Practice 12/24/18 documented as of this encounter
--- OUTSIDE RECORDS SUMMARY | 2025-01-10 16:56 | XMS_ITS | Encounter Summary ---
Author Organization [facility] Address [address] [place] [address] Care Team Providers Care Career Center Advisor Name Role Phone Lauri Krishnan MD Primary Care Provider [phone] Encounter Details Date Type Department Care Team (Latest Contact Info) Description 02/25/2002 Outpatient Historical HIS [facility] Lavelle Lopez Jr., MD [address] [place] [address] ACUTE SINUSITIS NOS (Primary Dx); HEADACHE; CARPAL TUNNEL SYNDROME; TOBACCO USE DISORDER Social History Tobacco Use Types Packs/Day Years Used Date Smoking Tobacco: Never Assessed Comments Unknown Sex and Gender Information Value Date Recorded Sex Assigned at Not on file Legal Sex Female 5:51 AM CONTACT LENS BLOCKER Gender Identity Not on file Sexual Orientation Not on file documented as of this encounter Plan of Treatment Not on file documented as of this encounter Visit Diagnoses Diagnosis Acute sinusitis, unspecified- Primary Headache(784.0) Headache Carpal tunnel syndrome Tobacco use disorder documented in this encounter Care Teams Career Center Advisor Relationship Specialty Start Date End Date Lauri Krishnan MD [address] [phone] PCP - General Family Practice 12/24/18 documented as of this encounter
--- OUTSIDE RECORDS SUMMARY | 2025-01-10 16:56 | XMS_ITS | Encounter Summary ---
Author Organization [facility] Address [address] [place] [address] Care Team Providers Care Rn Cardiac Rehab Name Role Phone Lauri Krishnan MD Primary Care Provider [phone] Encounter Details Date Type Department Care Team (Late st Contact Info) Description 06/21/2003 Outpatient [facility] [address] [place] [address] David Lau MD 1020 [facility] [address] [place] [phone] CARPAL TUNNEL SYNDROME (Primary Dx) Social History Tobacco Use Types Packs/Day Years Used Date Smoking Tobacco: Never Assessed Comments Unknown Sex and Gender Information Value Date Recorded Sex Assigned at Not on file Legal Sex Female 5:51 AM ADVERTISING SOLICITOR Gender Identity Not on file Sexual Orientation Not on file documented as of this encounter Plan of Treatment Not on file documented as of this encounter Visit Diagnoses Diagnosis Carpal tunnel syndrome- Primary documented in this encounter Care Teams Rn Cardiac Rehab Relationship Specialty Start Date End Date Lauri Krishnan MD 805 [facility] 1 [place] [address] PCP - General Family Practice 12/24/18 documented as of this encounter
--- OUTSIDE RECORDS SUMMARY | 2025-01-10 16:56 | XMS_ITS | Encounter Summary ---
Author Organization [facility] Address [address] [place] [address] Care Team Providers Care Regional Clinical Research Associate Name Role Phone Lauri Krishnan MD Primary Care Provider [phone] Encounter Details Date Type Department Care Team (Latest Contact Info) Description 04/22/2002 Outpatient Historical [facility] Lavelle Lopez Jr., MD [address] [place] [address] POSTMENOPAUSAL HORMONAL REPLACMT (Primary Dx); Routine medical exam; ESOPHAGEAL REFLUX; NONSPECIF SKIN ERUPT NEC Social History Tobacco Use Types Packs/Day Years Used Date Smoking Tobacco: Never Assessed Comments Unknown Sex and Gender Information Value Date Recorded Sex Assigned at Not on file Legal Sex Female 5:51 AM ORGANIZATIONAL DEVELOPMENT CONSULTANT Gender Identity Not on file Sexual Orientation Not on file documented as of this encounter Plan of Treatment Not on file documented as of this encounter Visit Diagnoses Diagnosis Need for prophylactic hormone replacement therapy (postmenopausal)- Primary Routine medical exam Routine general medical examination at a health care facility Esophageal reflux Rash and other nonspecific skin eruption documented in this encounter Care Teams Regional Clinical Research Associate Relationship Specialty Start Date End Date Lauri Krishnan MD [address] [address] PCP - General Family Practice 12/24/18 documented as of this encounter
--- OUTSIDE RECORDS SUMMARY | 2025-01-10 16:56 | XMS_ITS | Encounter Summary ---
Author Organization [facility] Address [address] [place] [address] Care Team Providers Care Laundry Aide Name Role Phone Lauri Krishnan MD Primary Care Provider [phone] Encounter Details Date Type Department Care Team (Latest Contact Info) Description 08/12/2000 Outpatient Historical HIS [facility] Cuauhtemoc Chung NO ADDRESS ON FILE Allergic rhinitis, cause unspecified (Primary Dx) Social History Tobacco Use Types Packs/Day Years Used Date Smoking Tobacco: Never Assessed Comments Unknown Sex and Gender Information Value Date Recorded Sex Assigned at Not on file Legal Sex Female 5:51 AM TITLE ABSTRACTOR Gender Identity Not on file Sexual Orientation Not on file documented as of this encounter Plan of Treatment Not on file documented as of this encounter Visit Diagnoses Diagnosis Allergic rhinitis, cause unspecified- Primary documented in this encounter Care Teams Laundry Aide Relationship Specialty Start Date End Date Lauri Krishnan MD [address] [phone] PCP - General Family Practice 12/24/18 documented as of this encounter
--- OUTSIDE RECORDS SUMMARY | 2025-01-10 16:56 | XMS_ITS | Encounter Summary ---
Author Organization [facility] Address [address] [place] [address] Care Team Providers Care Plumbing Contractor Name Role Phone Lauri Krishnan MD Primary Care Provider Encounter Details Date Type Department Care Team (Late st Contact Info) Description 06/16/2003 Outpatient Historical HIS [facility] David Lau MD 1020 [facility] 102 [place] [address] CARPAL TUNNEL SYNDROME (Primary Dx) Social History Tobacco Use Types Packs/Day Years Used Date Smoking Tobacco: Never Assessed Comments Unknown Sex and Gender Information Value Date Recorded Sex Assigned at Not on file Legal Sex Female 5:51 AM CLINICAL PHARMACY COORDINATOR Gender Identity Not on file Sexual Orientation Not on file documented as of this encounter Plan of Treatment Not on file documented as of this encounter Visit Diagnoses Diagnosis Carpal tunnel syndrome- Primary documented in this encounter Care Teams Plumbing Contractor Relationship Specialty Start Date End Date Lauri Krishnan MD 5 [facility] 1 [place] [phone] PCP - General Family Practice 12/24/18 documented as of this encounter
--- OUTSIDE RECORDS SUMMARY | 2025-01-10 16:56 | XMS_ITS | Encounter Summary ---
Author Organization [facility] Address [address] [place] [address] Care Team Providers Care Parcel Carrier Name Role Phone Lauri Krishnan MD Primary Care Provider Encounter Details Date Type Department Care Team (Late st Contact Info) Description 07/20/2003 Outpatient Historical HIS [facility] David Lau MD 1020 [facility] 102 [place] [address] POSTSURG AFTERCARE OTHER SPECIFIED (Primary Dx) Social History Tobacco Use Types Packs/Day Years Used Date Smoking Tobacco: Never Assessed Comments Unknown Sex and Gender Information Value Date Recorded Sex Assigned at Not on file Legal Sex Female 5:51 AM BOTTLE TESTER Gender Identity Not on file Sexual Orientation Not on file documented as of this encounter Plan of Treatment Not on file documented as of this encounter Visit Diagnoses Diagnosis Other specified aftercare following surgery- Primary documented in this encounter Care Teams Parcel Carrier Relationship Specialty Start Date End Date Lauri Krishnan MD 805 [facility] 1 [place] [address] PCP - General Family Practice 12/24/18 documented as of this encounter
--- OUTSIDE RECORDS SUMMARY | 2025-01-10 16:56 | XMS_ITS | Encounter Summary ---
Author Organization [facility] Address [address] [place] [address] Care Team Providers Care Nursing Home Director Name Role Phone Lauri Krishnan MD Primary Care Provider [phone] Encounter Details Date Type Department Care Team (Latest Contact Info) Description 06/05/2000 Outpatient Historical HIS [facility] Lavelle Lopez Jr., MD [address] [place] [address] Gynecologic examination (Primary Dx); Screening [...] on file Legal Sex Female 5:51 AM PROJ MGR Gender Identity Not on file Sexual Orientation [...] nephropathy documented in this encounter Care Teams Nursing Home Director Relationship Specialty Start Date End Date Lauri Krishnan MD [address] [phone] PCP - General Family Practice 12/24/18 documented as of this encounter
--- OUTSIDE RECORDS SUMMARY | 2025-01-10 16:56 | XMS_ITS | Encounter Summary ---
Author Organization [facility] Address [address] [place] [address] Care Team Providers Care Motor And Generator Assembler Name Role Phone Lauri Krishnan MD Primary Care Provider [phone] Encounter Details Date Type Department Care Team (Latest Contact Info) Description 04/15/1998 Outpatient Historical HIS [facility] Richard Horner MD NO ADDRESS ON FILE Other specified aftercare following surgery (Primary Dx) Social History Tobacco Use Types Packs/Day Years Used Date Smoking Tobacco: Never Assessed Comments Unknown Sex and Gender Information Value Date Recorded Sex Assigned at Not on file Legal Sex Female 5:51 AM PEDIATRIC SPEECH LANGUAGE PATHOLOGIST Gender Identity Not on file Sexual Orientation Not on file documented as of this encounter Plan of Treatment Not on file documented as of this encounter Visit Diagnoses Diagnosis Other specified aftercare following surgery- Primary documented in this encounter Care Teams Motor And Generator Assembler Relationship Specialty Start Date End Date Lauri Krishnan MD [address] [phone] PCP - General Family Practice 12/24/18 documented as of this encounter
--- OUTSIDE RECORDS SUMMARY | 2025-01-10 16:56 | XMS_ITS | Encounter Summary ---
Author Organization [facility] Address [address] [place] [address] Care Team Providers Care Development Vice President Name Role Phone Lauri Krishnan MD Primary Care Provider [phone] Encounter Details Date Type Department Care Team (Latest Contact Info) Description 07/03/2000 Outpatient Historical HIS [facility] Lavelle Lopez Jr., MD [address] [place] [address] Endometriosis, site unspecified (Primary Dx) Social History Tobacco Use Types Packs/Day Years Used Date Smoking Tobacco: Never Assessed Comments Unknown Sex and Gender Information Value Date Recorded Sex Assigned at Not on file Legal Sex Female 5:51 AM COMPUTED TOMOGRAPHY TECHNICIAN Gender Identity Not on file Sexual Orientation Not on file documented as of this encounter Plan of Treatment Not on file documented as of this encounter Visit Diagnoses Diagnosis Endometriosis, site unspecified- Primary documented in this encounter Care Teams Development Vice President Relationship Specialty Start Date End Date Lauri Krishnan MD [address] [phone] PCP - General Family Practice 12/24/18 documented as of this encounter
--- OUTSIDE RECORDS SUMMARY | 2025-01-10 16:56 | XMS_ITS | Encounter Summary ---
Author Organization [facility] Address [address] [place] [address] Care Team Providers Care Curb Setter Helper Name Role Phone Lauri Krishnan MD Primary Care Provider Encounter Details Date Type Department Care Team (Late st Contact Info) Description 07/12/2003 Outpatient [facility] [address] [place] [address] [place] [address] David Lau MD 1020 [facility] 102 [place] [phone] CARPAL TUNNEL SYNDROME (Primary Dx) Social History Tobacco Use Types Packs/Day Years Used Date Smoking Tobacco: Never Assessed Comments Unknown Sex and Gender Information Value Date Recorded Sex Assigned at Not on file Legal Sex Female 5:51 AM TRACK WORKER Gender Identity Not on file Sexual Orientation Not on file documented as of this encounter Plan of Treatment Not on file documented as of this encounter Visit Diagnoses Diagnosis Carpal tunnel syndrome- Primary documented in this encounter Care Teams Curb Setter Helper Relationship Specialty Start Date End Date Lauri Krishnan MD 805 [facility] 1 [place] [address] PCP - General Family Practice 12/24/18 documented as of this encounter
--- OUTSIDE RECORDS SUMMARY | 2025-01-10 16:56 | XMS_ITS | Encounter Summary ---
Author Organization [facility] Address [address] [place] [address] Care Team Providers Care Lime Kiln Worker Name Role Phone Lauri Krishnan MD Primary Care Provider [phone] Encounter Details Date Type Department Care Team (Late st Contact Info) Description 09/08/1997 Outpatient Historical HIS [facility] Social History Tobacco Use Types Packs/Day Years Used Date Smoking Tobacco: Never Assessed Comments Unknown Sex and Gender Information Value Date Recorded Sex Assigned at Not on file Legal Sex Female 5:51 AM MANAGER ORGANIZATIONAL Gender Identity Not on file Sexual Orientation Not on file documented as of this encounter Plan of Treatment Not on file documented as of this encounter Visit Diagnoses Not on filedocumented in this encounter Care Teams Lime Kiln Worker Relationship Specialty Start Date End Date Lauri Krishnan MD [address] [phone] PCP - General Family Practice 12/24/18 documented as of this encounter
--- OUTSIDE RECORDS SUMMARY | 2025-01-10 16:56 | XMS_ITS | Encounter Summary ---
Author Organization [facility] Address [address] [place] [address] Care Team Providers Care Menagerie Caretaker Name Role Phone Luari Krishnan MD Primary Care Provider Encounter Details Date Type Department Care Team (Late st Contact Info) Description 08/31/2003 Outpatient Historical HIS [facility] David Lau MD 1020 [facility] 102 [place] [address] CARPAL TUNNEL SYNDROME (Primary Dx) Social History Tobacco Use Types Packs/Day Years Used Date Smoking Tobacco: Never Assessed Comments Unknown Sex and Gender Information Value Date Recorded Sex Assigned at Not on file Legal Sex Female 5:51 AM DEBT COUNSELOR Gender Identity Not on file Sexual Orientation Not on file documented as of this encounter Plan of Treatment Not on file documented as of this encounter Visit Diagnoses Diagnosis Carpal tunnel syndrome- Primary documented in this encounter Care Teams Menagerie Caretaker Relationship Specialty Start Date End Date Lauri Krishnan MD 5 [facility] 1 [place] [phone] PCP - General Family Practice 12/24/18 documented as of this encounter
--- OUTSIDE RECORDS SUMMARY | 2025-01-10 16:57 | XMS_ITS | Encounter Summary ---
Author Organization [facility] Address [address] [place] [address] Care Team Providers Care Sample Card Maker Name Role Phone Lauri Krishnan MD Primary Care Provider [phone] Encounter Details Date Type Department Care Team (Latest Contact Info) Description 03/25/2003 Outpatient Historical [facility] Lavelle Lopez Jr., MD [address] [place] [address] CARPAL TUNNEL SYNDROME (Primary Dx); BRONCHITIS NOS; CHRONIC AIRWAY OBSTRUCTION NEC ([facility] Social History Tobacco Use Types Packs/Day Years Used Date Smoking Tobacco: Never Assessed Comments Unknown Sex and Gender Information Value Date Recorded Sex Assigned at Not on file Legal Sex Female 5:51 AM BARN WORKER Gender Identity Not on file Sexual Orientation Not on file documented as of this encounter Plan of Treatment Not on file documented as of this encounter Visit Diagnoses Diagnosis Carpal tunnel syndrome- Primary Bronchitis, not specified as acute or chronic Chronic airway obstruction, not elsewhere classified (CMS/HCC) Chronic airway obstruction, not elsewhere classified documented in this encounter Care Teams Sample Card Maker Relationship Specialty Start Date End Date Lauri Krishnan MD [address] [address] PCP - General Family Practice 12/24/18 documented as of this encounter
--- OUTSIDE RECORDS SUMMARY | 2025-01-10 16:57 | XMS_ITS | Encounter Summary ---
Author Organization [facility] Address [address] [place] [address] Care Team Providers Care Customer Sales Distributor Name Role Phone Lauri Krishnan MD Primary Care Provider [phone] Encounter Details Date Type Department Care Team (Latest Contact Info) Description 11/12/2001 Outpatient Historical HIS [facility] CelioPraful MD 805 [facility] 3 [place] [address] CHOLELITHIASIS NOS (Primary Dx); SURGERY FOLLOWUP, UNSPEC Social History Tobacco Use Types Packs/Day Years Used Date Smoking Tobacco: Never Assessed Comments Unknown Sex and Gender Information Value Date Recorded Sex Assigned at Not on file Legal Sex Female 5:51 AM CAPACITOR INSPECTOR Gender Identity Not on file Sexual Orientation Not on file documented as of this encounter Plan of Treatment Not on file documented as of this encounter Visit Diagnoses Diagnosis Calculus of gallbladder without mention of cholecystitis or obstruction- Primary Follow-up examination, following unspecified surgery documented in this encounter Care Teams Customer Sales Distributor Relationship Specialty Start Date End Date Lauri Krishnan MD 805 [facility] 1 [place] [address] PCP - General Family Practice 12/24/18 documented as of this encounter
--- OUTSIDE RECORDS SUMMARY | 2025-01-10 16:57 | XMS_ITS | Encounter Summary ---
Author Organization [facility] Address [address] [facility] [address] [place]: Epic Prelude ADT [place] [address] Care Team Providers Care Pension Administrator Name Role Phone Lauri Krishnan MD Primary Care Provider [phone] Encounter Details Date Type Department Care Team (Late st Contact Info) Description 01/31/2001 Outpatient Historical Lavelle Lopez Jr., MD [address] [place] [address] Social History Tobacco Use Types Packs/Day Years Used Date Smoking Tobacco: Never Assessed Comments Unknown Sex and Gender Information Value Date Recorded Sex Assigned at Not on file Legal Sex Female 5:51 AM FINANCIAL COORDINATOR Gender Identity Not on file Sexual Orientation Not on file documented as of this encounter Plan of Treatment Not on file documented as of this encounter Visit Diagnoses Not on filedocumented in this encounter Care Teams Pension Administrator Relationship Specialty Start Date End Date Lauri Krishnan MD 805 [facility] 1 [place] [phone] PCP - General Family Practice 12/24/18 documented as of this encounter
--- OUTSIDE RECORDS SUMMARY | 2025-01-10 16:57 | XMS_ITS | Encounter Summary ---
Author Organization [facility] Address [address] [place] [address] Care Team Providers Care Rn Perinatal Name Role Phone Lauri Krishnan MD Primary Care Provider Encounter Details Date Type Department Care Team (Latest Contact Info) Description 10/15/2001 Outpatient Historical [facility] Lavelle Lopez Jr., MD [address] [place] [address] ABDOMINAL PAIN UNSPEC SITE (Primary Dx) Social History Tobacco Use Types Packs/Day Years Used Date Smoking Tobacco: Never Assessed Comments Unknown Sex and Gender Information Value Date Recorded Sex Assigned at Not on file Legal Sex Female 5:51 AM MIXER BLENDER Gender Identity Not on file Sexual Orientation Not on file documented as of this encounter Plan of Treatment Not on file documented as of this encounter Visit Diagnoses Diagnosis Abdominal pain, unspecified site- Primary documented in this encounter Care Teams Rn Perinatal Relationship Specialty Start Date End Date Lauri Krishnan MD [address] [phone] PCP - General Family Practice 12/24/18 documented as of this encounter
--- OUTSIDE RECORDS SUMMARY | 2025-01-10 16:57 | XMS_ITS | Encounter Summary ---
Author Organization [facility] Address [address] [place] [address] Care Team Providers Care Nitrator Operator Name Role Phone Lauri Krishnan MD Primary Care Provider [phone] Encounter Details Date Type Department Care Team (Latest Contact Info) Description 01/31/2001 Outpatient Historical HIS [facility] Lavelle Lopez Jr., MD [address] [place] [address] Hematuria (Primary Dx); Osteoarthrosis, unspecified whether generalized or localized, unspecified site Social History Tobacco Use Types Packs/Day Years Used Date Smoking Tobacco: Never Assessed Comments Unknown Sex and Gender Information Value Date Recorded Sex Assigned at Not on file Legal Sex Female 5:51 AM COMMUNITY RELATIONS OFFICER Gender Identity Not on file Sexual Orientation Not on file documented as of this encounter Plan of Treatment Not on file documented as of this encounter Visit Diagnoses Diagnosis Hematuria- Primary Osteoarthrosis, unspecified whether generalized or localized, unspecified site documented in this encounter Care Teams Nitrator Operator Relationship Specialty Start Date End Date Lauri Krishnan MD [address] [address] PCP - General Family Practice 12/24/18 documented as of this encounter
--- OUTSIDE RECORDS SUMMARY | 2025-01-10 16:57 | XMS_ITS | Encounter Summary ---
Author Organization [facility] Address [address] [place] [address] Care Team Providers Care Network Internship Name Role Phone Lauri Krishnan MD Primary Care Provider [phone] Encounter Details Date Type Department Care Team (Latest Contact Info) Description 08/29/2000 Outpatient Historical HIS [facility] Lavelle Lopez Jr., MD [address] [place] [address] Bronchitis, not specified as acute or chronic (Primary Dx); Insomnia, unspecified Social History Tobacco Use Types Packs/Day Years Used Date Smoking Tobacco: Never Assessed Comments Unknown Sex and Gender Information Value Date Recorded Sex Assigned at Not on file Legal Sex Female 5:51 AM DIRECTOR OF FOOD AND BEVERAGE SERVICES Gender Identity Not on file Sexual Orientation Not on file documented as of this encounter Plan of Treatment Not on file documented as of this encounter Visit Diagnoses Diagnosis Bronchitis, not specified as acute or chronic- Primary Insomnia, unspecified documented in this encounter Care Teams Network Internship Relationship Specialty Start Date End Date Lauri Krishnan MD [address] [address] PCP - General Family Practice 12/24/18 documented as of this encounter
--- OUTSIDE RECORDS SUMMARY | 2025-01-10 16:57 | XMS_ITS | Encounter Summary ---
Author Organization [facility] Address [address] [place] [address] Care Team Providers Care Sole Stapler Welt Name Role Phone Lauri Krishnan MD Primary Care Provider [phone] Encounter Details Date Type Department Care Team (Late st Contact Info) Description 12/03/2001 Outpatient Historical HIS [facility] CelioPraful MD 805 [facility] 3 [place] [address] SURGERY FOLLOWUP, UNSPEC (Primary Dx) Social History Tobacco Use Types Packs/Day Years Used Date Smoking Tobacco: Never Assessed Comments Unknown Sex and Gender Information Value Date Recorded Sex Assigned at Not on file Legal Sex Female 5:51 AM SAUSAGE CANNER Gender Identity Not on file Sexual Orientation Not on file documented as of this encounter Plan of Treatment Not on file documented as of this encounter Visit Diagnoses Diagnosis Follow-up examination, following unspecified surgery- Primary documented in this encounter Care Teams Sole Stapler Welt Relationship Specialty Start Date End Date Lauri Krishnan MD 805 [facility] 1 [place] [phone] PCP - General Family Practice 12/24/18 documented as of this encounter
--- OUTSIDE RECORDS SUMMARY | 2025-01-10 16:57 | XMS_ITS | Encounter Summary ---
Author Organization [facility] Address [address] [place] [address] Care Team Providers Care Community Organizer Name Role Phone Lauri Krishnan MD Primary Care Provider [phone] Encounter Details Date Type Department Care Team (Latest Contact Info) Description 02/14/2001 Outpatient Historical HIS [facility] Lavelle Lopez Jr., MD [address] [place] [address] Abdominal pain, unspecified site (Primary Dx) Social History Tobacco Use Types Packs/Day Years Used Date Smoking Tobacco: Never Assessed Comments Unknown Sex and Gender Information Value Date Recorded Sex Assigned at Not on file Legal Sex Female 5:51 AM SECURITIES SETTLEMENT PROCESSOR Gender Identity Not on file Sexual Orientation Not on file documented as of this encounter Plan of Treatment Not on file documented as of this encounter Visit Diagnoses Diagnosis Abdominal pain, unspecified site- Primary documented in this encounter Care Teams Community Organizer Relationship Specialty Start Date End Date Lauri Krishnan MD [address] [phone] PCP - General Family Practice 12/24/18 documented as of this encounter
--- OUTSIDE RECORDS SUMMARY | 2025-01-10 16:57 | XMS_ITS | Encounter Summary ---
Author Organization [facility] Address [address] [place] [address] Care Team Providers Care Waste Machine Offbearer Name Role Phone Lauri Krishnan MD Primary Care Provider Encounter Details Date Type Department Care Team (Latest Contact Info) Description 02/22/2003 Outpatient Historical [facility] Lavelle Lopez Jr., MD [address] [place] [address] CARPAL TUNNEL SYNDROME (Primary Dx); CHRONIC AIRWAY OBSTRUCTION NEC (CMS/HCC); ROTATOR CUFF SYND NOS Social History Tobacco Use Types Packs/Day Years Used Date Smoking Tobacco: Never Assessed Comments Unknown Sex and Gender Information Value Date Recorded Sex Assigned at Not on file Legal Sex Female 5:51 AM BUILDING AND 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 SUPERVISOR Gender Identity Not on file Sexual Orientation Not on file documented as of this encounter Plan of Treatment Not on file documented as of this encounter Visit Diagnoses Diagnosis Carpal tunnel syndrome- Primary Chronic airway obstruction, not elsewhere classified (CMS/HCC) Chronic airway obstruction, not elsewhere classified Disorders of bursae and tendons in shoulder region, unspecified documented in this encounter Care Teams Waste Machine Offbearer Relationship Specialty Start Date End Date Lauri Krishnan MD [address] [address] PCP - General Family Practice 12/24/18 documented as of this encounter
--- OUTSIDE RECORDS SUMMARY | 2025-01-10 16:57 | XMS_ITS | Clinical Summary ---
Author Organization [facility] Address [address] [place] [address] Care Team Providers Care Riverine Assault Craft Crewman Name Role Phone Lauri Krishnan MD Primary Care Provider [phone] Allergies Active Allergy Reactions Criticality Noted Date [...] on file Legal Sex Female 5:51 AM CHEMICAL ENGINEERING TECHNOLOGIST Gender Identity Not on file Sexual Orientation Not on file Last Filed Vital Signs Vital Sign Reading Time Taken Comments Blood Pressure 136/80 05/25/2019 1:27 PM CHEMICAL ENGINEERING TECHNOLOGIST Pulse 100 05/25/2019 1:27 PM CHEMICAL ENGINEERING TECHNOLOGIST Temperature - - Respiratory Rate 20 03/26/2019 11:09 AM CDT Oxygen Saturation 98% 03/26/2019 11:09 AM CDT Inhaled Oxygen Concentration - - Weight 82.1 kg (181 lb) 05/25/2019 1:27 PM CHEMICAL ENGINEERING TECHNOLOGIST Height 162.6 cm (5' 4 ) 05/25/2019 1:27 PM CHEMICAL ENGINEERING TECHNOLOGIST Body Mass Index 31.07 05/25/2019 1:27 PM CHEMICAL ENGINEERING TECHNOLOGIST Plan of Treatment Health Maintenance Due Date [...] VACCINE (#1) 2025 9, 04/09/2003, 05/05/2001 Insurance [facility] DUAL COMPLETE MCR PPO D-SNP [place] Care Teams Riverine Assault Craft Crewman Relationship Specialty Start Date End Date Lauri Krishnan MD [address] [phone] PCP - General Family Practice 12/24/18
--- OUTSIDE RECORDS SUMMARY | 2025-01-10 16:57 | XMS_ITS | Encounter Summary ---
Author Organization [facility] Address [address] [place] [address] Care Team Providers Care Registration Manager Name Role Phone Lauri Krishnan MD Primary Care Provider [phone] Encounter Details Date Type Department Care Team (Latest Contact Info) Description 10/14/2000 Outpatient Historical HIS [facility] Lavelle Lopez Jr., MD [address] [place] [address] Acute pharyngitis (Primary Dx); Phlebitis and thrombophlebitis of unspecified site Social History Tobacco Use Types Packs/Day Years Used Date Smoking Tobacco: Never Assessed Comments Unknown Sex and Gender Information Value Date Recorded Sex Assigned at Not on file Legal Sex Female 5:51 AM SENIOR GAME ADVISOR Gender Identity Not on file Sexual Orientation Not on file documented as of this encounter Plan of Treatment Not on file documented as of this encounter Visit Diagnoses Diagnosis Acute pharyngitis- Primary Phlebitis and thrombophlebitis of unspecified site documented in this encounter Care Teams Registration Manager Relationship Specialty Start Date End Date Lauri Krishnan MD [address] [address] PCP - General Family Practice 12/24/18 documented as of this encounter
--- OUTSIDE RECORDS SUMMARY | 2025-01-10 16:57 | XMS_ITS | Encounter Summary ---
Author Organization [facility] Address [address] [place] [address] Care Team Providers Care Associate Art Director Name Role Phone Lauri Krishnan MD Primary Care Provider [phone] Encounter Details Date Type Department Care Team (Late st Contact Info) Description 11/03/2001 Outpatient Historical HIS [facility] CelioPraful MD [address] [facility] [address] [place] [address] ESOPHAGEAL REFLUX (Primary Dx); CHOLELITHIASIS NOS Social History Tobacco Use Types Packs/Day Years Used Date Smoking Tobacco: Never Assessed Comments Unknown Sex and Gender Information Value Date Recorded Sex Assigned at Not on file Legal Sex Female 5:51 AM FURNITURE MAKER Gender Identity Not on file Sexual Orientation Not on file documented as of this encounter Plan of Treatment Not on file documented as of this encounter Visit Diagnoses Diagnosis Esophageal reflux- Primary Calculus of gallbladder without mention of cholecystitis or obstruction documented in this encounter Care Teams Associate Art Director Relationship Specialty Start Date End Date Lauri Krishnan MD [address] [facility] [address] [place] [address] PCP - General Family Practice 12/24/18 documented as of this encounter
--- OUTSIDE RECORDS SUMMARY | 2025-01-10 16:57 | XMS_ITS | Encounter Summary ---
Author Organization [facility] Address [address] [place] [address] Care Team Providers Care Boxing Instructor Name Role Phone Lauri Krishnan MD Primary Care Provider [phone] Encounter Details Date Type Department Care Team (Latest Contact Info) Description 10/01/2001 Outpatient Historical HIS [facility] Lavelle Lopez Jr., MD [address] [place] [address] ABDOMINAL PAIN UNSPEC SITE (Primary Dx) Social History Tobacco Use Types Packs/Day Years Used Date Smoking Tobacco: Never Assessed Comments Unknown Sex and Gender Information Value Date Recorded Sex Assigned at Not on file Legal Sex Female 5:51 AM MANAGER DIALYSIS Gender Identity Not on file Sexual Orientation Not on file documented as of this encounter Plan of Treatment Not on file documented as of this encounter Visit Diagnoses Diagnosis Abdominal pain, unspecified site- Primary documented in this encounter Care Teams Boxing Instructor Relationship Specialty Start Date End Date Lauri Krishnan MD [address] [phone] PCP - General Family Practice 12/24/18 documented as of this encounter
--- OUTSIDE RECORDS SUMMARY | 2025-01-10 16:57 | XMS_ITS | Clinical Summary ---
Author Organization [facility] Address [address] [facility] Attn: [place] [address] Care Team Providers Care String Winding Machine Operator Name Role Phone Lauri Krishnan MD Primary Care Provider [phone] Allergies Active Allergy Reactions Criticality Noted Date [...] Date Type Department Care Team Description 10/12/2024 [facility] Pulmonology [place] [address] [place] [address] Datar, MD Sidney from Last 3 Months [...] on file Legal Sex Female 8:26 AM SERVICE DIRECTOR Gender Identity Not on file Sexual Orientation Not on file Last Filed Vital Signs Vital Sign Reading Time Taken Comments Blood Pressure 136/80 05/25/2019 1:27 PM SERVICE DIRECTOR Pulse 100 05/25/2019 1:27 PM SERVICE DIRECTOR Temperature - - Respiratory Rate 20 03/26/2019 11:09 AM CDT Oxygen Saturation - - Inhaled Oxygen Concentration - - Weight 82.1 kg (181 lb) 05/25/2019 1:27 PM SERVICE DIRECTOR Height 162.6 cm (5' 4 ) 05/25/2019 1:27 PM SERVICE DIRECTOR Body Mass Index 31.07 05/25/2019 1:27 PM SERVICE DIRECTOR Plan of Treatment Health Maintenance Due Date [...] (#1) 2025 9, 04/09/2003, 05/05/2001 Care Teams String Winding Machine Operator Relationship Specialty Start Date End Date Lauri Krishnan MD [address] [phone] PCP - General Family Practice 12/24/18
--- OUTSIDE RECORDS SUMMARY | 2025-01-10 16:57 | XMS_ITS | Encounter Summary ---
Author Organization [facility] Address [address] [place] [address] Care Team Providers Care Vp Of Global Marketing Name Role Phone Lauri Krishnan MD Primary Care Provider [phone] Encounter Details Date Type Department Care Team (Latest Contact Info) Description 11/26/2001 Outpatient Historical HIS [facility] Lavelle Lopez Jr., MD [address] [place] [address] EDEMA (Primary Dx); CHRONIC AIRWAY OBSTRUCTION NEC (CMS/HCC); TOBACCO USE DISORDER; AFTERCARE PAINTER HELPER SIGN USE MEDICATN Social History Tobacco Use Types Packs/Day Years Used Date Smoking Tobacco: Never Assessed Comments Unknown Sex and Gender Information Value Date Recorded Sex Assigned at Not on file Legal Sex Female 5:51 AM POWER MARKETER Gender Identity Not on file Sexual Orientation Not on file documented as of this encounter Plan of Treatment Not on file documented as of this encounter Visit Diagnoses Diagnosis Edema- Primary Chronic airway obstruction, not elsewhere classified (CMS/HCC) Chronic airway obstruction, not elsewhere classified Tobacco use disorder Encounter for long-term (current) use of other medications documented in this encounter Care Teams Vp Of Global Marketing Relationship Specialty Start Date End Date Lauri Krishnan MD [address] [address] PCP - General Family Practice 12/24/18 documented as of this encounter
--- OUTSIDE RECORDS SUMMARY | 2025-01-10 16:57 | XMS_ITS | Encounter Summary ---
Author Organization [facility] Address [address] [place] [address] Care Team Providers Care Line Technician Name Role Phone Lauri Krishnan MD Primary Care Provider [phone] Encounter Details Date Type Department Care Team (Latest Contact Info) Description 02/20/2001 Outpatient Historical HIS [facility] Lavelle Lopez Jr., MD [address] [place] [address] Edema (Primary Dx); Osteoarthrosis, unspecified whether generalized or localized, unspecified site Social History Tobacco Use Types Packs/Day Years Used Date Smoking Tobacco: Never Assessed Comments Unknown Sex and Gender Information Value Date Recorded Sex Assigned at Not on file Legal Sex Female 5:51 AM HEAD PIECE ASSEMBLER Gender Identity Not on file Sexual Orientation Not on file documented as of this encounter Plan of Treatment Not on file documented as of this encounter Visit Diagnoses Diagnosis Edema- Primary Osteoarthrosis, unspecified whether generalized or localized, unspecified site documented in this encounter Care Teams Line Technician Relationship Specialty Start Date End Date Lauri Krishnan MD [address] [address] PCP - General Family Practice 12/24/18 documented as of this encounter
--- OUTSIDE RECORDS SUMMARY | 2025-01-10 16:57 | XMS_ITS | Encounter Summary ---
Author Organization [facility] Address [address] [place] [address] Care Team Providers Care Cutter Operator Name Role Phone Lauri Krishnan MD Primary Care Provider [phone] Encounter Details Date Type Department Care Team (Latest Contact Info) Description 08/27/2001 Outpatient Historical HIS [facility] Lavelle Lopez Jr., MD [address] [place] [address] CHRONIC AIRWAY OBSTRUCTION NEC (CMS/HCC) (Primary Dx); DEPRESSIVE DISORDER NEC; Pain in limb; TOBACCO USE DISORDER Social History Tobacco Use Types Packs/Day Years Used Date Smoking Tobacco: Never Assessed Comments Unknown Sex and Gender Information Value Date Recorded Sex Assigned at Not on file Legal Sex Female 5:51 AM DOWNSTAIRS MAID Gender Identity Not on file Sexual Orientation [...] disorder documented in this encounter Care Teams Cutter Operator Relationship Specialty Start Date End Date Lauri Krishnan MD [address] [address] PCP - General Family Practice 12/24/18 documented as of this encounter
--- OUTSIDE RECORDS SUMMARY | 2025-01-10 16:57 | XMS_ITS | Encounter Summary ---
Author Organization [facility] Address [address] [place] [address] Care Team Providers Care Iv Rn Name Role Phone Lauri Krishnan MD Primary Care Provider [phone] Encounter Details Date Type Department Care Team (Latest Contact Info) Description 07/08/2002 Outpatient Historical HIS [facility] Lavelle Lopez Jr., MD [address] [place] [address] ABDOMINAL PAIN UNSPEC SITE (Primary Dx); BRONCHITIS NOS; SCREENING-CARDIOVASC NEC Social History Tobacco Use Types Packs/Day Years Used Date Smoking Tobacco: Never Assessed Comments Unknown Sex and Gender Information Value Date Recorded Sex Assigned at Not on file Legal Sex Female 5:51 AM [employer] DIRECTOR Gender Identity Not on file Sexual Orientation Not on file documented as of this encounter Plan of Treatment Not on file documented as of this encounter Visit Diagnoses Diagnosis Abdominal pain, unspecified site- Primary Bronchitis, not specified as acute or chronic Screening for other and unspecified cardiovascular conditions documented in this encounter Care Teams Iv Rn Relationship Specialty Start Date End Date Lauri Krishnan MD [address] [address] PCP - General Family Practice 12/24/18 documented as of this encounter
--- OUTSIDE RECORDS SUMMARY | 2025-01-10 16:57 | XMS_ITS | Encounter Summary ---
Author Organization [facility] Address [address] [place] [address] Care Team Providers Care Veterans Service Officer Name Role Phone Lauri Krishnan MD Primary Care Provider Encounter Details Date Type Department Care Team (Latest Contact Info) Description 06/27/2001 Outpatient Historical HIS [facility] Lavelle Lopez Jr., MD [address] [place] [address] HEMATURIA (Primary Dx); BRONCHITIS NOS; TOBACCO USE DISORDER Social History Tobacco Use Types Packs/Day Years Used Date Smoking Tobacco: Never Assessed Comments Unknown Sex and Gender Information Value Date Recorded Sex Assigned at Not on file Legal Sex Female 5:51 AM HPLC CHEMIST Gender Identity Not on file Sexual Orientation Not on file documented as of this encounter Plan of Treatment Not on file documented as of this encounter Visit Diagnoses Diagnosis Hematuria- Primary Bronchitis, not specified as acute or chronic Tobacco use disorder documented in this encounter Care Teams Veterans Service Officer Relationship Specialty Start Date End Date Lauri Krishnan MD [address] [phone] PCP - General Family Practice 12/24/18 documented as of this encounter
--- OUTSIDE RECORDS SUMMARY | 2025-01-10 16:57 | XMS_ITS | Encounter Summary ---
Author Organization [facility] Address [address] [place] [address] Care Team Providers Care Concrete Worker Name Role Phone Lauri Krishnan MD Primary Care Provider [phone] Encounter Details Date Type Department Care Team (Latest Contact Info) Description 01/23/2002 Outpatient Historical HIS [facility] Gunnar Mcintyre MD [address] [place] [address] UNSPECIFIED VIRAL INFECTION (Primary Dx) Social History Tobacco Use Types Packs/Day Years Used Date Smoking Tobacco: Never Assessed Comments Unknown Sex and Gender Information Value Date Recorded Sex Assigned at Not on file Legal Sex Female 5:51 AM ASSIGNMENT DESK EDITOR Gender Identity Not on file Sexual Orientation Not on file documented as of this encounter Plan of Treatment Not on file documented as of this encounter Visit Diagnoses Diagnosis Unspecified viral infection, in conditions classified elsewhere and of unspecified site- Primary documented in this encounter Care Teams Concrete Worker Relationship Specialty Start Date End Date Lauri Krishnan MD [address] [address] PCP - General Family Practice 12/24/18 documented as of this encounter
--- OUTSIDE RECORDS SUMMARY | 2025-01-10 16:57 | XMS_ITS | Encounter Summary ---
Author Organization [facility] Address [address] [place] [address] Care Team Providers Care Graduate Civil Engineer Name Role Phone Lauri Krishnan MD Primary Care Provider [phone] Encounter Details Date Type Department Care Team (Latest Contact Info) Description 09/30/2000 Outpatient Historical HIS [facility] Lavelle Lopez Jr., MD [address] [place] [address] Swelling of limb (Primary Dx); Need for prophylactic hormone replacement therapy (postmenopausal) Social History Tobacco Use Types Packs/Day Years Used Date Smoking Tobacco: Never Assessed Comments Unknown Sex and Gender Information Value Date Recorded Sex Assigned at Not on file Legal Sex Female 5:51 AM FLARE BREAKER Gender Identity Not on file Sexual Orientation Not on file documented as of this encounter Plan of Treatment Not on file documented as of this encounter Visit Diagnoses Diagnosis Swelling of limb- Primary Need for prophylactic hormone replacement therapy (postmenopausal) documented in this encounter Care Teams Graduate Civil Engineer Relationship Specialty Start Date End Date Lauri Krishnan MD [address] [address] PCP - General Family Practice 12/24/18 documented as of this encounter
--- OUTSIDE RECORDS SUMMARY | 2025-01-10 16:57 | XMS_ITS | Encounter Summary ---
Author Organization [facility] Address [address] [place] [address] Care Team Providers Care Director Of Corporate Strategy Name Role Phone Lauri Krishnan MD Primary Care Provider [phone] Encounter Details Date Type Department Care Team (Latest Contact Info) Description 12/20/2000 Outpatient Historical HIS [facility] Lavelle Lopez Jr., MD [address] [place] [address] Osteoarthrosis, unspecified whether generalized or localized, other specified sites (Primary Dx); Cystitis, unspecified; Backache, unspecified Social History Tobacco Use Types Packs/Day Years Used Date Smoking Tobacco: Never Assessed Comments Unknown Sex and Gender Information Value Date Recorded Sex Assigned at Not on file Legal Sex Female 5:51 AM MEATCUTTER Gender Identity Not on file Sexual Orientation Not on file documented as of this encounter Plan of Treatment Not on file documented as of this encounter Visit Diagnoses Diagnosis Osteoarthrosis, unspecified whether generalized or localized, other specified sites- Primary Cystitis, unspecified Backache, unspecified documented in this encounter Care Teams Director Of Corporate Strategy Relationship Specialty Start Date End Date Lauri Krishnan MD [address] [phone] PCP - General Family Practice 12/24/18 documented as of this encounter
--- OUTSIDE RECORDS SUMMARY | 2025-01-10 16:57 | XMS_ITS | Encounter Summary ---
Author Organization [facility] Address [address] [place] [address] Care Team Providers Care Rounder Hand Name Role Phone Lauri Krishnan MD Primary Care Provider Encounter Details Date Type Department Care Team (Latest Contact Info) Description 04/10/2001 Outpatient Historical [facility] Lavelle Lopez Jr., MD [address] [place] [address] Irritable bowel syndrome (Primary Dx); Osteoarthrosis, unspecified whether generalized or localized, unspecified site; Depressive disorder, not elsewhere classified; Need for prophylactic hormone replacement therapy (postmenopausal) Social History Tobacco Use Types Packs/Day Years Used Date Smoking Tobacco: Never Assessed Comments Unknown Sex and Gender Information Value Date Recorded Sex Assigned at Not on file Legal Sex Female 5:51 AM NEMATOLOGIST Gender Identity Not on file Sexual Orientation Not on file documented as of this encounter Plan of Treatment Not on file documented as of this encounter Visit Diagnoses Diagnosis Irritable bowel syndrome- Primary Osteoarthrosis, unspecified whether generalized or localized, unspecified site Depressive disorder, not elsewhere classified Need for prophylactic hormone replacement therapy (postmenopausal) documented in this encounter Care Teams Rounder Hand Relationship Specialty Start Date End Date Lauri Krishnan MD [address] [phone] PCP - General Family Practice 12/24/18 documented as of this encounter
--- OUTSIDE RECORDS SUMMARY | 2025-01-10 16:57 | XMS_ITS | Encounter Summary ---
Author Organization [facility] Address [address] [place] [address] Care Team Providers Care Geography Faculty Member Name Role Phone Lauri Krishnan MD Primary Care Provider [phone] Encounter Details Date Type Department Care Team (Latest Contact Info) Description 11/04/2000 Outpatient Historical HIS [facility] Lavelle Lopez Jr., MD [address] [place] [address] Bronchitis, not specified as acute or chronic (Primary Dx); Acute pharyngitis Social History Tobacco Use Types Packs/Day Years Used Date Smoking Tobacco: Never Assessed Comments Unknown Sex and Gender Information Value Date Recorded Sex Assigned at Not on file Legal Sex Female 5:51 AM CORRECTIONAL SUPERVISOR Gender Identity Not on file Sexual Orientation Not on file documented as of this encounter Plan of Treatment Not on file documented as of this encounter Visit Diagnoses Diagnosis Bronchitis, not specified as acute or chronic- Primary Acute pharyngitis documented in this encounter Care Teams Geography Faculty Member Relationship Specialty Start Date End Date Lauri Krishnan MD [address] [address] PCP - General Family Practice 12/24/18 documented as of this encounter
--- OUTSIDE RECORDS SUMMARY | 2025-01-10 16:57 | XMS_ITS | Encounter Summary ---
Author Organization [facility] Address [address] [place] [address] Care Team Providers Care Salon Supervisor Name Role Phone Lauri Krishnan MD Primary Care Provider [phone] Encounter Details Date Type Department Care Team (Latest Contact Info) Description 05/05/2001 Outpatient Historical [facility] Lavelle Lopez Jr., MD [address] [place] [address] OSTEOARTHROS NOS-UNSPEC (Primary Dx); DEPRESSIVE DISORDER NEC; POSTMENOPAUSAL HORMONAL REPLACMT; VACCINE FOR INFLUENZA Social History Tobacco Use Types Packs/Day Years Used Date Smoking Tobacco: Never Assessed Comments Unknown Sex and Gender Information Value Date Recorded Sex Assigned at Not on file Legal Sex Female 5:51 AM NURSE ADMINISTRATOR Gender Identity Not on file Sexual Orientation [...] diseases documented in this encounter Care Teams Salon Supervisor Relationship Specialty Start Date End Date Lauri Krishnan MD [address] [phone] PCP - General Family Practice 12/24/18 documented as of this encounter
--- OUTSIDE RECORDS SUMMARY | 2025-01-10 16:57 | XMS_ITS | Encounter Summary ---
Author Organization [facility] Address [address] [place] [address] Care Team Providers Care Water Resource Engineering Specialist Name Role Phone Lauri Krishnan MD Primary Care Provider [phone] Encounter Details Date Type Department Care Team (Latest Contact Info) Description 07/10/2002 Outpatient Historical HIS [facility] Lavelle Lopez Jr., MD [address] [place] [address] BRONCHITIS NOS (Primary Dx); ESOPHAGEAL REFLUX; Diaphragmatic hernia; ALLERGIC RHINITIS NEC Social History Tobacco Use Types Packs/Day Years Used Date Smoking Tobacco: Never Assessed Comments Unknown Sex and Gender Information Value Date Recorded Sex Assigned at Not on file Legal Sex Female 5:51 AM HEAD OF ENGLISH Gender Identity Not on file Sexual Orientation Not on file documented as of this encounter Plan of Treatment Not on file documented as of this encounter Visit Diagnoses Diagnosis Bronchitis, not specified as acute or chronic- Primary Esophageal reflux Diaphragmatic hernia Diaphragmatic hernia without mention of obstruction or gangrene Allergic rhinitis due to other allergen documented in this encounter Care Teams Water Resource Engineering Specialist Relationship Specialty Start Date End Date Lauri Krishnan MD [address] [address] PCP - General Family Practice 12/24/18 documented as of this encounter
--- NOTE | 2025-01-10 17:11 | PC.NURSE ---
Patient transferred from ED to CSU via a wheelchair at 1711.
--- NOTE | 2025-01-10 17:23 | PM.HP ---
Providers/Chief Complaint Admitting Physician: Vinny Rodriguez MD Primary Care Provider: Lauri Krishnan MD Chief Complaint: SOB History of Present Illness Nhung Leone is a 59 year old female with a past medical history of asthma COPD, quit smoking 4 months ago, who presents to [facility] for shortness of breath. Currently patient is alert oriented x 3, following all commands, she sitting up to side of bed, she feels short of breath, she short of breath after speaking a few words, nasal fine, suprasternal retraction intercostal retractions, and expiratory wheezing, she is in moderate respiratory distress, denies any recent travel, no calf pain, no calf swelling, no hemoptysis, no fevers, no chills, no chest pain Review of Systems Const: Denies: fever(s) or chills Card: Denies: chest pain Resp: Reports: dyspnea, non-productive cough and wheezing Medications/Allergies Home Medications ?Medication ?Instructions ?Recorded ?Confirmed ?Last Taken ?Type nitroglycerin 0.4 mg sublingual 0.4 mg sublingual Q5M PRN chest 06/21/22 01/10/25 Unknown Rx tablet pain #25 tabs pantoprazole 40 mg tablet,delayed 40 mg PO BID #90 tabs 08/13/22 01/10/25 01/10/25 Rx release montelukast 10 mg tablet 10 mg PO DAILY #90 tabs 08/31/22 01/10/25 01/10/25 Rx (Singulair) cetirizine 10 mg tablet (Zyrtec) 10 mg PO QAM 01/03/23 01/10/25 01/10/25 History fluoxetine 40 mg capsule 40 mg PO QAM 01/04/23 01/10/25 01/10/25 History trazodone 50 mg tablet 50 mg PO BEDTIME PRN Sleep 01/04/23 01/10/25 Unknown History omalizumab 150 mg/mL subcutaneous 300 mg (2 mL) SUBCUT Q14D #2 mL 12/24/23 01/10/25 12/29/24 Rx syringe (Xolair) furosemide 40 mg tablet 40 mg PO DAILY #30 tabs 05/12/24 01/10/25 01/10/25 Rx aripiprazole 2 mg tablet 2 mg PO DAILY 05/24/24 01/10/2525 History clopidogrel 75 mg tablet 75 mg PO DAILY 05/24/24 01/10/25 01/10/25 History fluticasone propionate 50 1 spray intranasal BID@ PRN 05/24/24 01/10/25 01/10/25 History mcg/actuation nasal allergies spray,suspension (Flonase Allergy Relief) rosuvastatin 40 mg tablet 40 mg PO BEDTIME 05/24/24 01/10/25 01/09/25 History spironolactone 25 mg tablet 25 mg PO DAILY 05/24/24 01/10/25 01/10/25 History atorvastatin 80 mg tablet 80 mg PO QAM #90 tabs 07/28/24 01/10/25 01/10/25 Rx albuterol sulfate 90 mcg/actuation 2 puff inhalation Q4H PRN 12/19/24 01/10/25 01/10/25 History aerosol inhaler Shortness Of Breath Allergies Allergy/AdvReac Type Severity Reaction Status Date / Time doxycycline Allergy Intermediate ALGY-Hives Verified 01/10/25 13:46 Iodinated Contrast Media Allergy Intermediate ALGY-Hives Verified 01/10/25 13:46 codeine Allergy Unknown Unknown Verified 01/10/25 13:46 Sulfa (Sulfonamide Allergy Unknown Unknown Verified 01/10/25 13:46 Antibiotics) gabapentin Allergy Unknown Verified 01/10/25 13:46 PFSH Acute PFSH: Medical History Disorders of diaphragm Nicotine addiction CAD (coronary artery disease) (~12/2019) -Known history of CAD with recent stenting of LAD due to anterior wall STEMI in December -Follows up with Dr. Salcedo; f/u in [address] Bass Essential (primary) hypertension -VSS; continue to monitor -continue oral antihypertensives Hypomagnesemia Hypokalemia Encounter for chronic pain management Diastolic congestive heart failure Shortness of breath Severe persistent asthma Closed fracture distal radius and ulna Insomnia Hyperlipidemia Smokers' cough Acute exacerbation of CHF (congestive heart failure) Normocytic anemia -Seems to have intermittent normocytic anemia with a baseline hemoglobin of about 10-11, intermittently normal -Has been on dual antiplatelet therapy given recent stenting -Continue to monitor H&H closely; stable so far -iron and ferritin low; start on iron replacement Asthma -severe persistent, started xolair 02/04/2020 -follow up with Dr. West New onset of congestive heart failure -Could be secondary to recent STEMI requiring intervention with stenting of LAD last month -Echo: EF=57%, normal systolic and diastolic function, no RWMA, trace [place], trace [place] -has been on IV diuresis with Lasix; switched to oral lasix -Continue to monitor electrolytes and renal function -Daily weights, monitor ins and outs -BNP elevated at 948 -Chest x-ray reported as unremarkable -Close monitoring of respiratory status, supplemental oxygen as needed Methadone maintenance therapy patient Acute anterior wall GA Chronic post-traumatic stress disorder Generalized anxiety disorder Major depressive disorder, recurrent severe without psychotic features Chronic radicular lumbar pain Herniated disc Sleep apnea, unspecified Lesion of ulnar nerve, bilateral COPD (chronic obstructive pulmonary disease) -no acute exacerbation -does not appear to be oxygen dependent at baseline -recently restarted smoking, 1/2 PPD KRISTOFER on CPAP GERD (gastroesophageal reflux disease) -on PPI Surgical History H/O oral surgery S/P section Presence of stent in LAD coronary artery (01/23/20) H/O bilateral oophorectomy History of cholecystectomy History of carpal tunnel release H/O skin graft Family History Father Myocardial infarct, Onset Age: 45 Brother Myocardial infarct, Onset Age: 53 Other CAD (coronary artery disease) Closed fracture distal radius and ulna Social History Smoking and tobacco/nicotine status: current every day tobacco/nicotine user cigarettes Packs smoked per day: 1 Years cigarettes smoked: 43 Second hand smoke exposure: Yes Alcohol intake: former Substance/Drug Use: never Lives independently: Yes Household members: family Marital status: Current occupational status: disabled Do you think of yourself as: Straight/Heterosexual Current gender identity: Female Vitals/I&O/Wt Last Vital Signs Temp 98.1 F 01/10/25 13:37 Pulse 103 H 01/10/25 17:04 Resp 18 01/10/25 16:41 BP 113/68 01/10/25 17:04 Pulse Ox 96 01/10/25 17:04 O2 Del Method Room Air 01/10/25 16:41 Weight last 48 hrs Weight 79.379 kg Physical Exam Const: COMMON NORMALS: no acute distress and patient oriented x3 Resp: EFFORT & INSPECTION: Yes abnormal respiratory pattern, Yes tachypneic and Yes respiratory distress AUSCULTATION: wheezes OTHER: Suprasternal retractions, intercostal retractions, nasal bradycardia, short of breath with a few words, inspiratory expiratory wheezing Cardio: COMMON NORMALS: regular rate, regular rhythm, S1 normal heart sound present and S2 normal heart sound present RATE: regular rate RHYTHM: regular rhythm HEART SOUNDS: S1 normal heart sound present and S2 normal heart sound present GI: COMMON NORMALS: Normal to inspection, nondistended, normoactive bowel sounds present, Soft to palpation and non-tender Extremity: COMMON NORMALS: no pedal edema Neuro: COMMON NORMALS: patient oriented x3, CN's II-XII intact bilaterally and moves all extremities Psych: COMMON NORMALS: mental status grossly normal Data 01/10/25 14:13 01/10/25 14:13 A&P Assessment and plan 1. CAD (coronary artery disease): 2. Asthma with COPD with exacerbation: 3. Respiratory failure: Plan: Acute hypoxic respiratory failure with mild to moderate acute respiratory distress syndrome - Secondary to asthma, COPD Plan - Monitor respiratory status closely, if respiratory status worsens will consider moving to ICU, consider BiPAP - DuoNeb - Budesonide -Sputum culture, blood culture - Rocephin, Zithromycin - Solu-Medrol - Full code -Lovenox for DVT prophylaxis PDMP PDMP Reviewed: Not Reviewed Attestations Medical Necessity Statement*: Patient requires hospitalization, inpatient, greater than 2 midnights, for acute hypoxic respiratory failure secondary to COPD, asthma, with evidence of acute respiratory distress Diagnoses CAD (coronary artery disease) I25.10 Asthma with COPD with exacerbation J44.1 Respiratory failure J96.90
[2025-01-10 17:41] LABS: Lactic Sepsis W/Reflex 2.3 mmol/L (0.5-2.2)
--- NOTE | 2025-01-10 17:41 | ECG_ITS ---
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 Measurements Intervals [place] Rate: 104 P: 38 MD: 142 QRS: 49 QRSD: 87 T: 42 QT: 355 QTc: 468 Interpretive Statements SINUS TACHYCARDIA ABNORMAL RHYTHM ECG Compared to ECG 01/10/2025 13:41:03 Sinus rhythm no longer present Electronically Signed On 01-12-2025 09:59:04 CDT by Gilmar Malhotra M.D. [email or web address]
[2025-01-10] MEDS: cefTRIAXone 1,000 mg SDV 1000 MG IVP (17:43)
[2025-01-10] MEDS: pantoprazole 40 mg SDV IVP (17:44)
[2025-01-10 17:52] LABS: NT Pro B Type Natriuretic Pept 100 pg/mL (0-125); Procalcitonin 0.04 ng/mL (0-0.5); Thyroid Stimulating Hormone 1.26 uIU/mL (0.27-4.20)
[2025-01-10 18:03] LABS: Cholesterol 142 mg/dL (0-200); HDL Cholesterol 53 mg/dL (60-100); Triglycerides 130 mg/dL (0-150)
[2025-01-10 18:07] LABS: Reflex Lactate Order REFLEX LACTIC ORDERD
--- OUTSIDE RECORDS SUMMARY | 2025-01-10 18:32 | XMS_ITS | Encounter Summary ---
Author Organization [facility] Address [address] [place] [address] Care Team Providers Care Abrasive Grinder Name Role Phone Lauri Krishnan MD Primary Care Provider Encounter Details Date Type Department Care Team (Late st Contact Info) Description 06/16/2003 Outpatient Historical HIS [facility] PLASTIC SURGERY David Lau MD [address] [facility] [address] [place] [address] CARPAL TUNNEL SYNDROME (Primary Dx) Social History Tobacco Use Types Packs/Day Years Used Date Smoking Tobacco: Never Assessed Comments Unknown Sex and Gender Information Value Date Recorded Sex Assigned at Not on file Legal Sex Female 5:51 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
--- OUTSIDE RECORDS SUMMARY | 2025-01-10 18:32 | XMS_ITS | Encounter Summary ---
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
--- OUTSIDE RECORDS SUMMARY | 2025-01-10 18:32 | XMS_ITS | Encounter Summary ---
Author Organization [facility] Address [address] [place] [address] Care Team Providers Care 911 Emergency Services Dispatcher Name Role Phone Lauri Krishnan MD Primary Care Provider [phone] Encounter Details Date Type Department Care Team (Latest Contact Info) Description 07/10/2002 Outpatient Historical HIS [facility] Lavelle Lopez Jr., MD [address] [place] [address] BRONCHITIS NOS (Primary Dx); ESOPHAGEAL REFLUX; Diaphragmatic hernia; ALLERGIC RHINITIS NEC Social History Tobacco Use Types Packs/Day Years Used Date Smoking Tobacco: Never Assessed Comments Unknown Sex and Gender Information Value Date Recorded Sex Assigned at Not on file Legal Sex Female 5:51 AM 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 OPERATOR Gender Identity Not on file Sexual Orientation Not on file documented as of this encounter Plan of Treatment Not on file documented as of this encounter Visit Diagnoses Diagnosis Bronchitis, not specified as acute or chronic- Primary Esophageal reflux Diaphragmatic hernia Diaphragmatic hernia without mention of obstruction or gangrene Allergic rhinitis due to other allergen documented in this encounter Care Teams 911 Emergency Services Dispatcher Relationship Specialty Start Date End Date Lauri Krishnan MD [address] [address] PCP - General Family Practice 12/24/18 documented as of this encounter
--- OUTSIDE RECORDS SUMMARY | 2025-01-10 18:32 | XMS_ITS | Encounter Summary ---
Author Organization [facility] Address [address] [place] [address] Care Team Providers Care Platform Power Technician Name Role Phone Lauri Krishnan MD Primary Care Provider [phone] Encounter Details Date Type Department Care Team (Latest Contact Info) Description 01/31/2001 Outpatient Historical HIS [facility] Lavelle Lopez Jr., MD [address] [place] [address] Hematuria (Primary Dx); Osteoarthrosis, unspecified whether generalized or localized, unspecified site Social History Tobacco Use Types Packs/Day Years Used Date Smoking Tobacco: Never Assessed Comments Unknown Sex and Gender Information Value Date Recorded Sex Assigned at Not on file Legal Sex Female 5:51 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
--- OUTSIDE RECORDS SUMMARY | 2025-01-10 18:32 | XMS_ITS | Encounter Summary ---
Author Organization [facility] Address [address] [place] [address] Care Team Providers Care Dope Dry House Operator Name Role Phone Lauri Krishnan MD Primary Care Provider [phone] Encounter Details Date Type Department Care Team (Latest Contact Info) Description 04/22/2002 Outpatient Historical [facility] Lavelle Lopez Jr., MD [address] [place] [address] POSTMENOPAUSAL HORMONAL REPLACMT (Primary Dx); Routine medical exam; ESOPHAGEAL REFLUX; NONSPECIF SKIN ERUPT NEC Social History Tobacco Use Types Packs/Day Years Used Date Smoking Tobacco: Never Assessed Comments Unknown Sex and Gender Information Value Date Recorded Sex Assigned at Not on file Legal Sex Female 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 [employer] F[employer]ATION Gender Identity Not on file Sexual Orientation Not on file documented as of this encounter Plan of Treatment Not on file documented as of this encounter Visit Diagnoses Diagnosis Need for prophylactic hormone replacement therapy (postmenopausal)- Primary Routine medical exam Routine general medical examination at a health care facility Esophageal reflux Rash and other nonspecific skin eruption documented in this encounter Care Teams Dope Dry House Operator Relationship Specialty Start Date End Date Lauri Krishnan MD [address] [address] PCP - General Family Practice 12/24/18 documented as of this encounter
--- OUTSIDE RECORDS SUMMARY | 2025-01-10 18:32 | XMS_ITS | Encounter Summary ---
Author Organization [facility] Address [address] [place] [address] Care Team Providers Care Fireman Helper Name Role Phone Lauri Krishnan MD Primary Care Provider [phone] Encounter Details Date Type Department Care Team (Latest Contact Info) Description 10/08/2002 Outpatient Historical HIS [facility] Lavelle Lopez Jr., MD [address] [place] [address] ESOPHAGEAL REFLUX (Primary Dx); DEPRESSIVE DISORDER NEC Social History Tobacco Use Types Packs/Day Years Used Date Smoking Tobacco: Never Assessed Comments Unknown Sex and Gender Information Value Date Recorded Sex Assigned at Not on file Legal Sex Female 5:51 AM TANK WAGON DRIVER Gender Identity Not on file Sexual Orientation Not on file documented as of this encounter Plan of Treatment Not on file documented as of this encounter Visit Diagnoses Diagnosis Esophageal reflux- Primary Depressive disorder, not elsewhere classified documented in this encounter Care Teams Fireman Helper Relationship Specialty Start Date End Date Lauri Krishnan MD [address] [phone] PCP - General Family Practice 12/24/18 documented as of this encounter
--- OUTSIDE RECORDS SUMMARY | 2025-01-10 18:32 | XMS_ITS | Encounter Summary ---
Author Organization [facility] Address [address] [place] [address] Care Team Providers Care Artificial Foliage Arranger Name Role Phone Lauri Krishnan MD Primary Care Provider Encounter Details Date Type Department Care Team (Latest Contact Info) Description 06/05/2000 Outpatient Historical HIS [facility] Lavelle Lopez Jr., MD [address] [place] [address] Gynecologic examination (Primary Dx); Screening [...] on file Legal Sex Female 5:51 AM RISK ADJUSTMENT SPECIALIST Gender Identity Not on file Sexual [...] nephropathy documented in this encounter Care Teams Artificial Foliage Arranger Relationship Specialty Start Date End Date Lauri Krishnan MD [address] [phone] PCP - General Family Practice 12/24/18 documented as of this encounter
--- OUTSIDE RECORDS SUMMARY | 2025-01-10 18:32 | XMS_ITS | Encounter Summary ---
Author Organization [facility] Address [address] [place] [address] Care Team Providers Care Php Web Developer Name Role Phone Lauri Krishnan MD Primary Care Provider Encounter Details Date Type Department Care Team (Late st Contact Info) Description 12/03/2001 Outpatient Historical HIS [facility] CelioPraful MD [address] [facility] [address] [place] [address] SURGERY FOLLOWUP, UNSPEC (Primary Dx) Social History Tobacco Use Types Packs/Day Years Used Date Smoking Tobacco: Never Assessed Comments Unknown Sex and Gender Information Value Date Recorded Sex Assigned at Not on file Legal Sex Female 5:51 AM FITNESS MANAGER Gender Identity Not on file Sexual Orientation Not on file documented as of this encounter Plan of Treatment Not on file documented as of this encounter Visit Diagnoses Diagnosis Follow-up examination, following unspecified surgery- Primary documented in this encounter Care Teams Php Web Developer Relationship Specialty Start Date End Date Lauri Krishnan MD [address] [facility] 1 [place] [phone] PCP - General Family Practice 12/24/18 documented as of this encounter
--- OUTSIDE RECORDS SUMMARY | 2025-01-10 18:32 | XMS_ITS | Encounter Summary ---
Author Organization [facility] Address [address] [place] [address] Care Team Providers Care Oil Field Caser Name Role Phone Lauri Krishnan MD Primary Care Provider [phone] Encounter Details Date Type Department Care Team (Late st Contact Info) Description 08/03/2003 Outpatient Historical HIS [facility]LAST[facility] SURGERY David Lau MD [address] [facility] [address] [place] [address] PLASTIC SURGERY NEC (Primary Dx); POSTSURG AFTERCARE OTHER SPECIFIED Social History Tobacco Use Types Packs/Day Years Used Date Smoking Tobacco: Never Assessed Comments Unknown Sex and Gender Information Value Date Recorded Sex Assigned at Not on file Legal Sex Female 5:51 AM ABRASIVE GRADER HELPER Gender Identity Not on file Sexual Orientation Not on file documented as of this encounter Plan of Treatment Not on file documented as of this encounter Visit Diagnoses Diagnosis Other plastic surgery for unacceptable cosmetic appearance- Primary Other specified aftercare following surgery documented in this encounter Care Teams Oil Field Caser Relationship Specialty Start Date End Date Lauri Krishnan MD [address] [facility] [address] [place] [phone] PCP - General Family Practice 12/24/18 documented as of this encounter
--- OUTSIDE RECORDS SUMMARY | 2025-01-10 18:32 | XMS_ITS | Encounter Summary ---
Author Organization [facility] Address [address] [place] [address] Care Team Providers Care Avionics Installer Name Role Phone Lauri Krishnan MD Primary Care Provider [phone] Encounter Details Date Type Department Care Team (Latest Contact Info) Description 01/23/2002 Outpatient Historical HIS [facility] Gunnar Mcintyre MD [address] [place] [address] UNSPECIFIED VIRAL INFECTION (Primary Dx) Social History Tobacco Use Types Packs/Day Years Used Date Smoking Tobacco: Never Assessed Comments Unknown Sex and Gender Information Value Date Recorded Sex Assigned at Not on file Legal Sex Female 5:51 AM EMAIL ENGINEER Gender Identity Not on file Sexual Orientation Not on file documented as of this encounter Plan of Treatment Not on file documented as of this encounter Visit Diagnoses Diagnosis Unspecified viral infection, in conditions classified elsewhere and of unspecified site- Primary documented in this encounter Care Teams Avionics Installer Relationship Specialty Start Date End Date Lauri Krishnan MD [address] [address] PCP - General Family Practice 12/24/18 documented as of this encounter
--- OUTSIDE RECORDS SUMMARY | 2025-01-10 18:32 | XMS_ITS | Encounter Summary ---
Author Organization [facility] Address [address] [place] [address] Care Team Providers Care Reroller Hand Name Role Phone Lauri Krishnan MD Primary Care Provider [phone] Encounter Details Date Type Department Care Team (Latest Contact Info) Description 11/12/2001 Outpatient Historical HIS [facility] CelioPraful MD [address] [facility] 3 [place] [address] CHOLELITHIASIS NOS (Primary Dx); SURGERY FOLLOWUP, UNSPEC Social History Tobacco Use Types Packs/Day Years Used Date Smoking Tobacco: Never Assessed Comments Unknown Sex and Gender Information Value Date Recorded Sex Assigned at Not on file Legal Sex Female 5:51 AM STACKER AND SORTER OPERATOR Gender Identity Not on file Sexual Orientation Not on file documented as of this encounter Plan of Treatment Not on file documented as of this encounter Visit Diagnoses Diagnosis Calculus of gallbladder without mention of cholecystitis or obstruction- Primary Follow-up examination, following unspecified surgery documented in this encounter Care Teams Reroller Hand Relationship Specialty Start Date End Date Lauri Krishnan MD [address] [facility] 1 [place] [address] PCP - General Family Practice 12/24/18 documented as of this encounter
--- OUTSIDE RECORDS SUMMARY | 2025-01-10 18:32 | XMS_ITS | Encounter Summary ---
Author Organization [facility] Address [address] [place] [address] Care Team Providers Care Batch Tank Controller Name Role Phone Lauri Krishnan MD Primary Care Provider [phone] Encounter Details Date Type Department Care Team (Latest Contact Info) Description 08/29/2000 Outpatient Historical HIS [facility] Lavelle Lopez Jr., MD [address] [place] [address] Bronchitis, not specified as acute or chronic (Primary Dx); Insomnia, unspecified Social History Tobacco Use Types Packs/Day Years Used Date Smoking Tobacco: Never Assessed Comments Unknown Sex and Gender Information Value Date Recorded Sex Assigned at Not on file Legal Sex Female 5:51 AM TOW OPERATOR Gender Identity Not on file Sexual Orientation Not on file documented as of this encounter Plan of Treatment Not on file documented as of this encounter Visit Diagnoses Diagnosis Bronchitis, not specified as acute or chronic- Primary Insomnia, unspecified documented in this encounter Care Teams Batch Tank Controller Relationship Specialty Start Date End Date Lauri Krishnan MD [address] [address] PCP - General Family Practice 12/24/18 documented as of this encounter
--- OUTSIDE RECORDS SUMMARY | 2025-01-10 18:32 | XMS_ITS | Encounter Summary ---
Author Organization [facility] Address [address] [place] [address] Care Team Providers Care Neurology Physician Name Role Phone Lauri Krishnan MD Primary Care Provider Encounter Details Date Type Department Care Team (Late st Contact Info) Description 06/29/2003 Outpatient Historical HIS [facility] David Lau MD [address] [facility] [address] [place] [address] POSTSURG AFTERCARE OTHER SPECIFIED (Primary Dx) Social History Tobacco Use Types Packs/Day Years Used Date Smoking Tobacco: Never Assessed Comments Unknown Sex and Gender Information Value Date Recorded Sex Assigned at Not on file Legal Sex Female 5:51 AM ELECTRIC LOCOMOTIVE FIRER/FIREMAN Gender Identity Not on file Sexual Orientation Not on file documented as of this encounter Plan of Treatment Not on file documented as of this encounter Visit Diagnoses Diagnosis Other specified aftercare following surgery- Primary documented in this encounter Care Teams Neurology Physician Relationship Specialty Start Date End Date Lauri Krishnan MD 805 [facility] 1 [place] [address] PCP - General Family Practice 12/24/18 documented as of this encounter
--- OUTSIDE RECORDS SUMMARY | 2025-01-10 18:32 | XMS_ITS | Encounter Summary ---
Author Organization [facility] Address [address] [place] [address] Care Team Providers Care Library Science Instructor Name Role Phone Lauri Krishnan MD Primary Care Provider [phone] Encounter Details Date Type Department Care Team (Latest Contact Info) Description 02/14/2001 Outpatient Historical HIS [facility] Lavelle Lopez Jr., MD [address] [place] [address] Abdominal pain, unspecified site (Primary Dx) Social History Tobacco Use Types Packs/Day Years Used Date Smoking Tobacco: Never Assessed Comments Unknown Sex and Gender Information Value Date Recorded Sex Assigned at Not on file Legal Sex Female 5:51 AM CLAIMS SORTER Gender Identity Not on file Sexual Orientation Not on file documented as of this encounter Plan of Treatment Not on file documented as of this encounter Visit Diagnoses Diagnosis Abdominal pain, unspecified site- Primary documented in this encounter Care Teams Library Science Instructor Relationship Specialty Start Date End Date Lauri Krishnan MD [address] [phone] PCP - General Family Practice 12/24/18 documented as of this encounter
--- OUTSIDE RECORDS SUMMARY | 2025-01-10 18:32 | XMS_ITS | Encounter Summary ---
Author Organization [facility] Address [address] [place] [address] Care Team Providers Care Horse Racing Analyst Name Role Phone Lauri Krishnan MD Primary Care Provider Encounter Details Date Type Department Care Team (Latest Contact Info) Description 10/15/2001 Outpatient Historical [facility] Lavelle Lopez Jr., MD [address] [place] [address] ABDOMINAL PAIN UNSPEC SITE (Primary Dx) Social History Tobacco Use Types Packs/Day Years Used Date Smoking Tobacco: Never Assessed Comments Unknown Sex and Gender Information Value Date Recorded Sex Assigned at Not on file Legal Sex Female 5:51 AM SENIOR INVESTMENT ANALYST Gender Identity Not on file Sexual Orientation Not on file documented as of this encounter Plan of Treatment Not on file documented as of this encounter Visit Diagnoses Diagnosis Abdominal pain, unspecified site- Primary documented in this encounter Care Teams Horse Racing Analyst Relationship Specialty Start Date End Date Lauri Krishnan MD [address] [phone] PCP - General Family Practice 12/24/18 documented as of this encounter
--- OUTSIDE RECORDS SUMMARY | 2025-01-10 18:32 | XMS_ITS | Clinical Summary ---
Author Organization [facility] Address [address] [facility] Attn: [place] [address] Care Team Providers Care Dredge Pipe Installer Name Role Phone Lauri Krishnan MD Primary Care Provider [phone] Allergies Active Allergy Reactions Criticality Noted Date [...] Date Type Department Care Team Description 10/12/2024 [facility] Pulmonology Reddick Aric [address] [place] [address] Datar, MD Sidney from Last 3 Months [...] on file Legal Sex Female 8:26 AM KEYBOARD TEACHER Gender Identity Not on file Sexual Orientation Not on file Last Filed Vital Signs Vital Sign Reading Time Taken Comments Blood Pressure 136/80 05/25/2019 1:27 PM KEYBOARD TEACHER Pulse 100 05/25/2019 1:27 PM KEYBOARD TEACHER Temperature - - Respiratory Rate 20 03/26/2019 11:09 AM CDT Oxygen Saturation - - Inhaled Oxygen Concentration - - Weight 82.1 kg (181 lb) 05/25/2019 1:27 PM KEYBOARD TEACHER Height 162.6 cm (5' 4 ) 05/25/2019 1:27 PM KEYBOARD TEACHER Body Mass Index 31.07 05/25/2019 1:27 PM KEYBOARD TEACHER Plan of Treatment Health Maintenance Due Date [...] (#1) 2025 9, 04/09/2003, 05/05/2001 Care Teams Dredge Pipe Installer Relationship Specialty Start Date End Date Lauri Krishnan MD [address] [phone] PCP - General Family Practice 12/24/18
--- OUTSIDE RECORDS SUMMARY | 2025-01-10 18:32 | XMS_ITS | Encounter Summary ---
Author Organization [facility] Address [address] [place] [address] Care Team Providers Care A And P Technician Name Role Phone Lauri Krishnan MD Primary Care Provider [phone] Encounter Details Date Type Department Care Team (Latest Contact Info) Description 07/08/2002 Outpatient Historical HIS [facility] Lavelle Lopez Jr., MD [address] [place] [address] ABDOMINAL PAIN UNSPEC SITE (Primary Dx); BRONCHITIS NOS; SCREENING-CARDIOVASC NEC Social History Tobacco Use Types Packs/Day Years Used Date Smoking Tobacco: Never Assessed Comments Unknown Sex and Gender Information Value Date Recorded Sex Assigned at Not on file Legal Sex Female 5:51 AM NEUROLOGY NURSE Gender Identity Not on file Sexual Orientation Not on file documented as of this encounter Plan of Treatment Not on file documented as of this encounter Visit Diagnoses Diagnosis Abdominal pain, unspecified site- Primary Bronchitis, not specified as acute or chronic Screening for other and unspecified cardiovascular conditions documented in this encounter Care Teams A And P Technician Relationship Specialty Start Date End Date Lauri Krishnan MD [address] [address] PCP - General Family Practice 12/24/18 documented as of this encounter
--- OUTSIDE RECORDS SUMMARY | 2025-01-10 18:32 | XMS_ITS | Encounter Summary ---
Author Organization [facility] Address [address] [place] [address] Care Team Providers Care Sed High School Teacher Name Role Phone Lauri Krishnan MD Primary Care Provider Encounter Details Date Type Department Care Team (Late st Contact Info) Description 07/12/2003 Outpatient [facility] [address] [place] [address] David Lau MD [address] [facility] 102 [place] [phone] CARPAL TUNNEL SYNDROME (Primary Dx) Social History Tobacco Use Types Packs/Day Years Used Date Smoking Tobacco: Never Assessed Comments Unknown Sex and Gender Information Value Date Recorded Sex Assigned at Not on file Legal Sex Female 5:51 AM ADVANCED QUALITY ENGINEER Gender Identity Not on file Sexual Orientation Not on file documented as of this encounter Plan of Treatment Not on file documented as of this encounter Visit Diagnoses Diagnosis Carpal tunnel syndrome- Primary documented in this encounter Care Teams Sed High School Teacher Relationship Specialty Start Date End Date Lauri Krishnan MD 805 [facility] 1 [place] [address] PCP - General Family Practice 12/24/18 documented as of this encounter
--- OUTSIDE RECORDS SUMMARY | 2025-01-10 18:32 | XMS_ITS | Encounter Summary ---
Author Organization [facility] Address [address] [place] [address] Care Team Providers Care Literacy Consultant Name Role Phone Lauri Krishnan MD Primary Care Provider [phone] Encounter Details Date Type Department Care Team (Late st Contact Info) Description 08/31/2003 Outpatient Historical HIS [facility] David Lau MD [address] [facility] [address] [place] [address] CARPAL TUNNEL SYNDROME (Primary Dx) Social History Tobacco Use Types Packs/Day Years Used Date Smoking Tobacco: Never Assessed Comments Unknown Sex and Gender Information Value Date Recorded Sex Assigned at Not on file Legal Sex Female 5:[address] Gender Identity Not on file Sexual Orientation Not on file documented as of this encounter Plan of Treatment Not on file documented as of this encounter Visit Diagnoses Diagnosis Carpal tunnel syndrome- Primary documented in this encounter Care Teams Literacy Consultant Relationship Specialty Start Date End Date Lauri Krishnan MD 5 [facility] 1 [place] [phone] PCP - General Family Practice 12/24/18 documented as of this encounter
--- OUTSIDE RECORDS SUMMARY | 2025-01-10 18:32 | XMS_ITS | Encounter Summary ---
Author Organization [facility] Address [address] [place] [address] Care Team Providers Care Shipping Lead Person Name Role Phone Lauri Krishnan MD Primary Care Provider [phone] Encounter Details Date Type Department Care Team (Latest Contact Info) Description 08/12/2000 Outpatient Historical HIS [facility] Cuauhtemoc Chung NO ADDRESS ON FILE [...] Primary documented in this encounter Care Teams Shipping Lead Person Relationship Specialty Start Date End Date Lauri Krishnan MD [address] [phone] PCP - General Family Practice 12/24/18 documented as of this encounter
--- OUTSIDE RECORDS SUMMARY | 2025-01-10 18:32 | XMS_ITS | Clinical Summary ---
Author Organization [facility] Address [address] [place] [address] Care Team Providers Care Transportation Escort Name Role Phone Lauri Krishnan MD Primary Care Provider [phone] Allergies Active Allergy Reactions Criticality Noted Date [...] on file Legal Sex Female 5:51 AM SIDING INSTALLER Gender Identity Not on file Sexual Orientation Not on file Last Filed Vital Signs Vital Sign Reading Time Taken Comments Blood Pressure 136/80 05/25/2019 1:27 PM SIDING INSTALLER Pulse 100 05/25/2019 1:27 PM SIDING INSTALLER Temperature - - Respiratory Rate 20 03/26/2019 11:09 AM CDT Oxygen Saturation 98% 03/26/2019 11:09 AM CDT Inhaled Oxygen Concentration - - Weight 82.1 kg (181 lb) 05/25/2019 1:27 PM SIDING INSTALLER Height 162.6 cm (5' 4 ) 05/25/2019 1:27 PM SIDING INSTALLER Body Mass Index 31.07 05/25/2019 1:27 PM SIDING INSTALLER Plan of Treatment Health Maintenance Due Date [...] VACCINE (#1) 2025 9, 04/09/2003, 05/05/2001 Insurance [facility] DUAL COMPLETE MCR PPO D-SNP [place] Care Teams Transportation Escort Relationship Specialty Start Date End Date Lauri Krishnan MD [address] [address] PCP - General Family Practice 12/24/18
--- OUTSIDE RECORDS SUMMARY | 2025-01-10 18:32 | XMS_ITS | Encounter Summary ---
Author Organization [facility] Address [address] [place] [address] Care Team Providers Care Police Detention Attendant Name Role Phone Lauri Krishnan MD Primary Care Provider [phone] Encounter Details Date Type Department Care Team (Latest Contact Info) Description 10/14/2000 Outpatient Historical HIS [facility] Lavelle Lopez Jr., MD [address] [place] [address] Acute pharyngitis (Primary Dx); Phlebitis and thrombophlebitis of unspecified site Social History Tobacco Use Types Packs/Day Years Used Date Smoking Tobacco: Never Assessed Comments Unknown Sex and Gender Information Value Date Recorded Sex Assigned at Not on file Legal Sex Female 5:51 AM INTERNET RETAILER Gender Identity Not on file Sexual Orientation Not on file documented as of this encounter Plan of Treatment Not on file documented as of this encounter Visit Diagnoses Diagnosis Acute pharyngitis- Primary Phlebitis and thrombophlebitis of unspecified site documented in this encounter Care Teams Police Detention Attendant Relationship Specialty Start Date End Date Lauri Krishnan MD [address] [address] PCP - General Family Practice 12/24/18 documented as of this encounter
--- OUTSIDE RECORDS SUMMARY | 2025-01-10 18:32 | XMS_ITS | Encounter Summary ---
Author Organization [facility] Address [address] [place] [address] Care Team Providers Care Town Marshal Name Role Phone Lauri Krishnan MD Primary Care Provider [phone] Encounter Details Date Type Department Care Team (Latest Contact Info) Description 10/01/2001 Outpatient Historical HIS [facility] Lavelle Lopez Jr., MD [address] [place] [address] ABDOMINAL PAIN UNSPEC SITE (Primary Dx) Social History Tobacco Use Types Packs/Day Years Used Date Smoking Tobacco: Never Assessed Comments Unknown Sex and Gender Information Value Date Recorded Sex Assigned at Not on file Legal Sex Female 5:51 AM HEAT TREATER APPRENTICE Gender Identity Not on file Sexual Orientation Not on file documented as of this encounter Plan of Treatment Not on file documented as of this encounter Visit Diagnoses Diagnosis Abdominal pain, unspecified site- Primary documented in this encounter Care Teams Town Marshal Relationship Specialty Start Date End Date Lauri Krishnan MD [address] [phone] PCP - General Family Practice 12/24/18 documented as of this encounter
--- OUTSIDE RECORDS SUMMARY | 2025-01-10 18:32 | XMS_ITS | Encounter Summary ---
Author Organization [facility] Address [address] [place] [address] Care Team Providers Care Clerk Rating Name Role Phone Lauri Krishnan MD Primary Care Provider [phone] Encounter Details Date Type Department Care Team (Latest Contact Info) Description 06/14/2000 Outpatient Historical HIS [facility] Lavelle Lopez Jr., MD [address] [place] [address] Abdominal pain, unspecified site (Primary Dx) Social History Tobacco Use Types Packs/Day Years Used Date Smoking Tobacco: Never Assessed Comments Unknown Sex and Gender Information Value Date Recorded Sex Assigned at Not on file Legal Sex Female 5:51 AM HORTICULTURAL SPECIALTY GROWER INSIDE Gender Identity Not on file Sexual Orientation Not on file documented as of this encounter Plan of Treatment Not on file documented as of this encounter Visit Diagnoses Diagnosis Abdominal pain, unspecified site- Primary documented in this encounter Care Teams Clerk Rating Relationship Specialty Start Date End Date Lauri Krishnan MD [address] [phone] PCP - General Family Practice 12/24/18 documented as of this encounter
--- OUTSIDE RECORDS SUMMARY | 2025-01-10 18:32 | XMS_ITS | Encounter Summary ---
Author Organization [facility] Address [address] [facility] [address] Silvermann: Epic Prelude ADT [place] [address] Care Team Providers Care Security Public Safety Officer Name Role Phone Lauri Krishnan MD Primary Care Provider [phone] Encounter Details Date Type Department Care Team (Late st Contact Info) Description 01/31/2001 Outpatient Historical Lavelle Lopez Jr., MD [address] [place] [address] Social History Tobacco Use Types Packs/Day Years Used Date Smoking Tobacco: Never Assessed Comments Unknown Sex and Gender Information Value Date Recorded Sex Assigned at Not on file Legal Sex Female 5:51 AM ARMHOLE PRESSER Gender Identity Not on file Sexual Orientation Not on file documented as of this encounter Plan of Treatment Not on file documented as of this encounter Visit Diagnoses Not on filedocumented in this encounter Care Teams Security Public Safety Officer Relationship Specialty Start Date End Date Lauri Krishnan MD 805 [facility] 1 [place] [phone] PCP - General Family Practice 12/24/18 documented as of this encounter
--- OUTSIDE RECORDS SUMMARY | 2025-01-10 18:32 | XMS_ITS | Encounter Summary ---
Author Organization [facility] Address [address] [place] [address] Care Team Providers Care Steel Placer Name Role Phone Lauri Krishnan MD Primary Care Provider [phone] Encounter Details Date Type Department Care Team (Latest Contact Info) Description 03/19/2002 Outpatient Historical HIS [facility] Gunnar Mcintyre MD [address] [place] [address] MIGRAINE NOS W/O MENTN INTRACTABLE (Primary Dx) Social History Tobacco Use Types Packs/Day Years Used Date Smoking Tobacco: Never Assessed Comments Unknown Sex and Gender Information Value Date Recorded Sex Assigned at Not on file Legal Sex Female 5:51 AM VENETIAN BLIND TAPE CUTTER Gender Identity Not on file Sexual Orientation Not on file documented as of this encounter Plan of Treatment Not on file documented as of this encounter Visit Diagnoses Diagnosis Migraine, unspecified, without mention of intractable migraine without mention of status migrainosus- Primary documented in this encounter Care Teams Steel Placer Relationship Specialty Start Date End Date Lauri Krishnan MD [address] [phone] PCP - General Family Practice 12/24/18 documented as of this encounter
--- OUTSIDE RECORDS SUMMARY | 2025-01-10 18:32 | XMS_ITS | Encounter Summary ---
Author Organization [facility] Address [address] [place] [address] Care Team Providers Care Personal Lines Insurance Agent Name Role Phone Lauri Krishnan MD Primary Care Provider [phone] Encounter Details Date Type Department Care Team (Late st Contact Info) Description 11/03/2001 Outpatient Historical HIS [facility] CelioPraful MD [address] [facility] 3 [place] [address] ESOPHAGEAL REFLUX (Primary Dx); CHOLELITHIASIS NOS Social History Tobacco Use Types Packs/Day Years Used Date Smoking Tobacco: Never Assessed Comments Unknown Sex and Gender Information Value Date Recorded Sex Assigned at Not on file Legal Sex Female 5:51 AM TAKE OFF MAN Gender Identity Not on file Sexual Orientation Not on file documented as of this encounter Plan of Treatment Not on file documented as of this encounter Visit Diagnoses Diagnosis Esophageal reflux- Primary Calculus of gallbladder without mention of cholecystitis or obstruction documented in this encounter Care Teams Personal Lines Insurance Agent Relationship Specialty Start Date End Date Lauri Krishnan MD [address] [facility] 1 [place] [address] PCP - General Family Practice 12/24/18 documented as of this encounter
--- OUTSIDE RECORDS SUMMARY | 2025-01-10 18:32 | XMS_ITS | Encounter Summary ---
Author Organization [facility] Address [address] [place] [address] Care Team Providers Care Tester Food Products Name Role Phone Lauri Krishnan MD Primary Care Provider [phone] Encounter Details Date Type Department Care Team (Latest Contact Info) Description 07/03/2000 Outpatient Historical HIS [facility] Lavelle Lopez Jr., MD [address] [place] [address] Endometriosis, site unspecified (Primary Dx) Social History Tobacco Use Types Packs/Day Years Used Date Smoking Tobacco: Never Assessed Comments Unknown Sex and Gender Information Value Date Recorded Sex Assigned at Not on file Legal Sex Female 5:51 AM SOLUTIONS ENGINEER Gender Identity Not on file Sexual Orientation Not on file documented as of this encounter Plan of Treatment Not on file documented as of this encounter Visit Diagnoses Diagnosis Endometriosis, site unspecified- Primary documented in this encounter Care Teams Tester Food Products Relationship Specialty Start Date End Date Lauri Krishnan MD [address] [phone] PCP - General Family Practice 12/24/18 documented as of this encounter
--- OUTSIDE RECORDS SUMMARY | 2025-01-10 18:32 | XMS_ITS | Encounter Summary ---
Author Organization [facility] Address [address] [place] [address] Care Team Providers Care Stunner Name Role Phone Lauri Krishnan MD Primary Care Provider [phone] Encounter Details Date Type Department Care Team (Latest Contact Info) Description 08/27/2001 Outpatient Historical HIS [facility] Lavelle Lopez Jr., MD [address] [place] [address] CHRONIC AIRWAY OBSTRUCTION NEC (CMS/HCC) (Primary Dx); DEPRESSIVE DISORDER NEC; Pain in limb; TOBACCO USE DISORDER Social History Tobacco Use Types Packs/Day Years Used Date Smoking Tobacco: Never Assessed Comments Unknown Sex and Gender Information Value Date Recorded Sex Assigned at Not on file Legal Sex Female 5:51 AM SPRAY DRY OPERATOR Gender Identity Not on file Sexual [...] disorder documented in this encounter Care Teams Stunner Relationship Specialty Start Date End Date Lauri Krishnan MD [address] [address] PCP - General Family Practice 12/24/18 documented as of this encounter
--- OUTSIDE RECORDS SUMMARY | 2025-01-10 18:32 | XMS_ITS | Encounter Summary ---
Author Organization [facility] Address [address] [place] [address] Care Team Providers Care Spindraw Operator Name Role Phone Lauri Krishnan MD Primary Care Provider [phone] Encounter Details Date Type Department Care Team (Late st Contact Info) Description 07/20/2003 Outpatient Historical HIS [facility] David Lau MD [address] [facility] [address] [place] [address] POSTSURG AFTERCARE OTHER SPECIFIED (Primary Dx) Social History Tobacco Use Types Packs/Day Years Used Date Smoking Tobacco: Never Assessed Comments Unknown Sex and Gender Information Value Date Recorded Sex Assigned at Not on file Legal Sex Female 5:51 AM CORRECTION OFFICER SUPERVISOR Gender Identity Not on file Sexual Orientation Not on file documented as of this encounter Plan of Treatment Not on file documented as of this encounter Visit Diagnoses Diagnosis Other specified aftercare following surgery- Primary documented in this encounter Care Teams Spindraw Operator Relationship Specialty Start Date End Date Lauri Krishnan MD 805 [facility] 1 [place] [address] PCP - General Family Practice 12/24/18 documented as of this encounter
--- OUTSIDE RECORDS SUMMARY | 2025-01-10 18:32 | XMS_ITS | Encounter Summary ---
Author Organization [facility] Address [address] [place] [address] Care Team Providers Care Well Puller Head Name Role Phone Lauri Krishnan MD Primary Care Provider [phone] Encounter Details Date Type Department Care Team (Latest Contact Info) Description 04/09/2003 Outpatient Historical HIS [facility] Lavelle Lopez Jr., MD [address] [place] [address] BRONCHITIS NOS (Primary Dx); Pure hypercholesterolem; TOBACCO USE DISORDER; Vaccine for influenza Social History Tobacco Use Types Packs/Day Years Used Date Smoking Tobacco: Never Assessed Comments Unknown Sex and Gender Information Value Date Recorded Sex Assigned at Not on file Legal Sex Female 5:51 AM SHORTHAND TEACHER Gender Identity Not on file Sexual Orientation Not on file documented as of this encounter Plan of Treatment Not on file documented as of this encounter Visit Diagnoses Diagnosis Bronchitis, not specified as acute or chronic- Primary Pure hypercholesterolem Pure hypercholesterolemia Tobacco use disorder Vaccine for influenza Need for prophylactic vaccination and inoculation against influenza documented in this encounter Care Teams Well Puller Head Relationship Specialty Start Date End Date Lauri Krishnan MD [address] [address] PCP - General Family Practice 12/24/18 documented as of this encounter
--- OUTSIDE RECORDS SUMMARY | 2025-01-10 18:32 | XMS_ITS | Encounter Summary ---
Author Organization [facility] Address [address] [place] [address] Care Team Providers Care Packing Machine Operator Name Role Phone Lauri Krishnan MD Primary Care Provider [phone] Encounter Details Date Type Department Care Team (Latest Contact Info) Description 03/28/1998 Outpatient Historical HIS [facility] Richard Horner MD NO ADDRESS ON FILE Other specified aftercare following surgery (Primary Dx) Social History Tobacco Use Types Packs/Day Years Used Date Smoking Tobacco: Never Assessed Comments Unknown Sex and Gender Information Value Date Recorded Sex Assigned at Not on file Legal Sex Female 5:51 AM LABOR ECONOMICS PROFESSOR Gender Identity Not on file Sexual Orientation Not on file documented as of this encounter Plan of Treatment Not on file documented as of this encounter Visit Diagnoses Diagnosis Other specified aftercare following surgery- Primary documented in this encounter Care Teams Packing Machine Operator Relationship Specialty Start Date End Date Lauri Krishnan MD [address] [phone] PCP - General Family Practice 12/24/18 documented as of this encounter
--- OUTSIDE RECORDS SUMMARY | 2025-01-10 18:32 | XMS_ITS | Encounter Summary ---
Author Organization [facility] Address [address] [place] [address] Care Team Providers Care Director Private Name Role Phone Lauri Krishnan MD Primary Care Provider [phone] Encounter Details Date Type Department Care Team (Latest Contact Info) Description 02/25/2002 Outpatient Historical HIS [facility] Lavelle Lopez Jr., MD [address] [place] [address] ACUTE SINUSITIS NOS (Primary Dx); HEADACHE; CARPAL TUNNEL SYNDROME; TOBACCO USE DISORDER Social History Tobacco Use Types Packs/Day Years Used Date Smoking Tobacco: Never Assessed Comments Unknown Sex and Gender Information Value Date Recorded Sex Assigned at Not on file Legal Sex Female 5:51 AM SUPERVISOR INSECTICIDE Gender Identity Not on file Sexual Orientation Not on file documented as of this encounter Plan of Treatment Not on file documented as of this encounter Visit Diagnoses Diagnosis Acute sinusitis, unspecified- Primary Headache(784.0) Headache Carpal tunnel syndrome Tobacco use disorder documented in this encounter Care Teams Director Private Relationship Specialty Start Date End Date Lauri Krishnan MD [address] [phone] PCP - General Family Practice 12/24/18 documented as of this encounter
--- OUTSIDE RECORDS SUMMARY | 2025-01-10 18:32 | XMS_ITS | Encounter Summary ---
Author Organization [facility] Address [address] [place] [address] Care Team Providers Care Biodiesel Plant Operations Engineer Name Role Phone Lauri Krishnan MD Primary Care Provider [phone] Encounter Details Date Type Department Care Team (Latest Contact Info) Description 07/20/2002 Outpatient Historical HIS [facility] CelioPraful MD [address] [facility] [address] [place] [address] Diaphragmatic hernia (Primary Dx); HEARTBURN; ABDOMINAL PAIN EPIGASTRIC Social History Tobacco Use Types Packs/Day Years Used Date Smoking Tobacco: Never Assessed Comments Unknown Sex and Gender Information Value Date Recorded Sex Assigned at Not on file Legal Sex Female 5:51 AM MULTI CARE TECHNICIAN Gender Identity Not on file Sexual Orientation Not on file documented as of this encounter Plan of Treatment Not on file documented as of this encounter Visit Diagnoses Diagnosis Diaphragmatic hernia- Primary Diaphragmatic hernia without mention of obstruction or gangrene Heartburn Abdominal pain, epigastric documented in this encounter Care Teams Biodiesel Plant Operations Engineer Relationship Specialty Start Date End Date Lauri Krishnan MD 805 [facility] 1 [place] [address] PCP - General Family Practice 12/24/18 documented as of this encounter
--- OUTSIDE RECORDS SUMMARY | 2025-01-10 18:32 | XMS_ITS | Encounter Summary ---
Author Organization [facility] Address [address] [place] [address] Care Team Providers Care Marketing Project Lead Name Role Phone Lauri Krishnan MD Primary Care Provider [phone] Encounter Details Date Type Department Care Team (Latest Contact Info) Description 04/15/[address] [facility] Richard Horner MD NO ADDRESS ON FILE Other specified aftercare following surgery (Primary Dx) Social History Tobacco Use Types Packs/Day Years Used Date Smoking Tobacco: Never Assessed Comments Unknown Sex and Gender Information Value Date Recorded Sex Assigned at Not on file Legal Sex Female 5:51 AM DIRECTOR CPG Gender Identity Not on file Sexual Orientation Not on file documented as of this encounter Plan of Treatment Not on file documented as of this encounter Visit Diagnoses Diagnosis Other specified aftercare following surgery- Primary documented in this encounter Care Teams Marketing Project Lead Relationship Specialty Start Date End Date Lauri Krishnan MD [address] [phone] PCP - General Family Practice 12/24/18 documented as of this encounter
--- OUTSIDE RECORDS SUMMARY | 2025-01-10 18:32 | XMS_ITS | Encounter Summary ---
Author Organization [facility] Address [address] [place] [address] Care Team Providers Care Information Developer Name Role Phone Lauri Krishnan MD Primary Care Provider [phone] Encounter Details Date Type Department Care Team (Latest Contact Info) Description 11/26/2001 Outpatient Historical HIS [facility] Lavelle Lopez Jr., MD [address] [place] [address] EDEMA (Primary Dx); CHRONIC AIRWAY OBSTRUCTION NEC (CMS/HCC); TOBACCO USE DISORDER; AFTERCARE COSTUME CUTTER USE MEDICATN Social History Tobacco Use Types Packs/Day Years Used Date Smoking Tobacco: Never Assessed Comments Unknown Sex and Gender Information Value Date Recorded Sex Assigned at Not on file Legal Sex Female 5:51 AM LIBRARY MEDIA ASSISTANT Gender Identity Not on file Sexual Orientation Not on file documented as of this encounter Plan of Treatment Not on file documented as of this encounter Visit Diagnoses Diagnosis Edema- Primary Chronic airway obstruction, not elsewhere classified (CMS/HCC) Chronic airway obstruction, not elsewhere classified Tobacco use disorder Encounter for long-term (current) use of other medications documented in this encounter Care Teams Information Developer Relationship Specialty Start Date End Date Lauri Krishnan MD [address] [address] PCP - General Family Practice 12/24/18 documented as of this encounter
--- OUTSIDE RECORDS SUMMARY | 2025-01-10 18:32 | XMS_ITS | Encounter Summary ---
Author Organization [facility] Address [address] [place] [address] Care Team Providers Care Rig Superintendent Name Role Phone Lauri Krishnan MD Primary Care Provider Encounter Details Date Type Department Care Team (Latest Contact Info) Description 06/27/2001 Outpatient Historical HIS [facility] Lavelle Lopez Jr., MD [address] [place] [address] HEMATURIA (Primary Dx); BRONCHITIS NOS; TOBACCO USE DISORDER Social History Tobacco Use Types Packs/Day Years Used Date Smoking Tobacco: Never Assessed Comments Unknown Sex and Gender Information Value Date Recorded Sex Assigned at Not on file Legal Sex Female 5:51 AM ROTARY DRILL OPERATOR HELPER Gender Identity Not on file Sexual Orientation Not on file documented as of this encounter Plan of Treatment Not on file documented as of this encounter Visit Diagnoses Diagnosis Hematuria- Primary Bronchitis, not specified as acute or chronic Tobacco use disorder documented in this encounter Care Teams Rig Superintendent Relationship Specialty Start Date End Date Lauri Krishnan MD [address] [phone] PCP - General Family Practice 12/24/18 documented as of this encounter
--- OUTSIDE RECORDS SUMMARY | 2025-01-10 18:32 | XMS_ITS | Encounter Summary ---
Author Organization [facility] Address [address] [place] [address] Care Team Providers Care Bicycle Messenger Name Role Phone Lauri Krishnan MD Primary Care Provider [phone] Encounter Details Date Type Department Care Team (Latest Contact Info) Description 12/20/2000 Outpatient Historical HIS [facility] Lavelle Lopez Jr., MD [address] [place] [address] Osteoarthrosis, unspecified whether generalized or localized, other specified sites (Primary Dx); Cystitis, unspecified; Backache, unspecified Social History Tobacco Use Types Packs/Day Years Used Date Smoking Tobacco: Never Assessed Comments Unknown Sex and Gender Information Value Date Recorded Sex Assigned at Not on file Legal Sex Female 5:51 AM UROGYNAECOLOGIST Gender Identity Not on file Sexual Orientation Not on file documented as of this encounter Plan of Treatment Not on file documented as of this encounter Visit Diagnoses Diagnosis Osteoarthrosis, unspecified whether generalized or localized, other specified sites- Primary Cystitis, unspecified Backache, unspecified documented in this encounter Care Teams Bicycle Messenger Relationship Specialty Start Date End Date Lauri Krishnan MD [address] [phone] PCP - General Family Practice 12/24/18 documented as of this encounter
--- OUTSIDE RECORDS SUMMARY | 2025-01-10 18:32 | XMS_ITS | Encounter Summary ---
Author Organization [facility] Address [address] [place] [address] Care Team Providers Care Artisan Plasterer Name Role Phone Lauri Krishnan MD Primary Care Provider [phone] Encounter Details Date Type Department Care Team (Latest Contact Info) Description 02/22/2003 Outpatient Historical [facility] Lavelle Lopez Jr., MD [address] [place] [address] CARPAL TUNNEL SYNDROME (Primary Dx); CHRONIC AIRWAY OBSTRUCTION NEC (CMS/HCC); ROTATOR CUFF SYND NOS Social History Tobacco Use Types Packs/Day Years Used Date Smoking Tobacco: Never Assessed Comments Unknown Sex and Gender Information Value Date Recorded Sex Assigned at Not on file Legal Sex Female 5:51 AM HEMMER LOCKSTITCH Gender Identity Not on file Sexual Orientation Not on file documented as of this encounter Plan of Treatment Not on file documented as of this encounter Visit Diagnoses Diagnosis Carpal tunnel syndrome- Primary Chronic airway obstruction, not elsewhere classified (CMS/HCC) Chronic airway obstruction, not elsewhere classified Disorders of bursae and tendons in shoulder region, unspecified documented in this encounter Care Teams Artisan Plasterer Relationship Specialty Start Date End Date Lauri Krishnan MD [address] [phone] PCP - General Family Practice 12/24/18 documented as of this encounter
--- OUTSIDE RECORDS SUMMARY | 2025-01-10 18:32 | XMS_ITS | Encounter Summary ---
Author Organization [facility] Address [address] [place] [address] Care Team Providers Care Operator Bearer Systems Name Role Phone Lauri Krishnan MD Primary Care Provider Encounter Details Date Type Department Care Team (Latest Contact Info) Description 04/10/2001 Outpatient Historical [facility] Lavelle Lopez Jr., MD [address] [place] [address] Irritable bowel syndrome (Primary Dx); Osteoarthrosis, unspecified whether generalized or localized, unspecified site; Depressive disorder, not elsewhere classified; Need for prophylactic hormone replacement therapy (postmenopausal) Social History Tobacco Use Types Packs/Day Years Used Date Smoking Tobacco: Never Assessed Comments Unknown Sex and Gender Information Value Date Recorded Sex Assigned at Not on file Legal Sex Female 5:51 AM CUT OFF SAW OPERATOR Gender Identity Not on file Sexual Orientation Not on file documented as of this encounter Plan of Treatment Not on file documented as of this encounter Visit Diagnoses Diagnosis Irritable bowel syndrome- Primary Osteoarthrosis, unspecified whether generalized or localized, unspecified site Depressive disorder, not elsewhere classified Need for prophylactic hormone replacement therapy (postmenopausal) documented in this encounter Care Teams Operator Bearer Systems Relationship Specialty Start Date End Date Lauri Krishnan MD [address] [phone] PCP - General Family Practice 12/24/18 documented as of this encounter
--- OUTSIDE RECORDS SUMMARY | 2025-01-10 18:32 | XMS_ITS | Encounter Summary ---
Author Organization [facility] Address [address] [place] [address] Care Team Providers Care Last Cleaner Name Role Phone Lauri Krishnan MD Primary Care Provider [phone] Encounter Details Date Type Department Care Team (Latest Contact Info) Description 09/30/2000 Outpatient Historical HIS [facility] Lavelle Lopez Jr., MD [address] [place] [address] Swelling of limb (Primary Dx); Need for prophylactic hormone replacement therapy (postmenopausal) Social History Tobacco Use Types Packs/Day Years Used Date Smoking Tobacco: Never Assessed Comments Unknown Sex and Gender Information Value Date Recorded Sex Assigned at Not on file Legal Sex Female 5:51 AM SEARCH PLANNER Gender Identity Not on file Sexual Orientation Not on file documented as of this encounter Plan of Treatment Not on file documented as of this encounter Visit Diagnoses Diagnosis Swelling of limb- Primary Need for prophylactic hormone replacement therapy (postmenopausal) documented in this encounter Care Teams Last Cleaner Relationship Specialty Start Date End Date Lauri Krishnan MD [address] [phone] PCP - General Family Practice 12/24/18 documented as of this encounter
--- OUTSIDE RECORDS SUMMARY | 2025-01-10 18:32 | XMS_ITS | Encounter Summary ---
Author Organization [facility] Address [address] [place] [address] Care Team Providers Care Freight Rate Clerk Name Role Phone Lauri Krishnan MD Primary Care Provider [phone] Encounter Details Date Type Department Care Team (Late st Contact Info) Description 07/08/2002 Outpatient Historical HIS [facility] Lavelle Lopez Jr., MD [address] [place] [address] ABDOMINAL PAIN UNSPEC SITE (Primary Dx) Social History Tobacco Use Types Packs/Day Years Used Date Smoking Tobacco: Never Assessed Comments Unknown Sex and Gender Information Value Date Recorded Sex Assigned at Not on file Legal Sex Female 5:51 AM HAND CANDY CUTTER Gender Identity Not on file Sexual Orientation Not on file documented as of this encounter Plan of Treatment Not on file documented as of this encounter Visit Diagnoses Diagnosis Abdominal pain, unspecified site- Primary documented in this encounter Care Teams Freight Rate Clerk Relationship Specialty Start Date End Date Lauri Krishnan MD 805 [facility] 1 [place] [phone] PCP - General Family Practice 12/24/18 documented as of this encounter
--- OUTSIDE RECORDS SUMMARY | 2025-01-10 18:32 | XMS_ITS | Encounter Summary ---
Author Organization [facility] Address [address] [place] [address] Care Team Providers Care Earth Science Technician Name Role Phone Lauri Krishnan MD Primary Care Provider Encounter Details Date Type Department Care Team (Latest Contact Info) Description 05/16/2000 Outpatient Historical HIS [facility] Lavelle Lopez Jr., MD [address] [place] [address] Migraine, unspecified, without mention of intractable migraine without mention of status migrainosus (Primary Dx); Unspecified asthma(493.90); Need for prophylactic vaccination with tetanus-diphtheria (Td) Social History Tobacco Use Types Packs/Day Years Used Date Smoking Tobacco: Never Assessed Comments Unknown Sex and Gender Information Value Date Recorded Sex Assigned at Not on file Legal Sex Female 5:51 AM CHEMICAL PLANT MANAGER Gender Identity Not on file Sexual Orientation Not on file documented as of this encounter Plan of Treatment Not on file documented as of this encounter Visit Diagnoses Diagnosis Migraine, unspecified, without mention of intractable migraine without mention of status migrainosus- Primary Unspecified asthma(493.90) Unspecified asthma Need for prophylactic vaccination with tetanus-diphtheria (Td) documented in this encounter Care Teams Earth Science Technician Relationship Specialty Start Date End Date Lauri Krishnan MD [address] [address] PCP - General Family Practice 12/24/18 documented as of this encounter
--- OUTSIDE RECORDS SUMMARY | 2025-01-10 18:32 | XMS_ITS | Encounter Summary ---
Author Organization [facility] Address [address] [place] [address] Care Team Providers Care Hotel Engineer Name Role Phone Lauri Krishnan MD Primary Care Provider [phone] Encounter Details Date Type Department Care Team (Latest Contact Info) Description 11/04/2000 Outpatient Historical HIS [facility] Lavelle Lopez Jr., MD [address] [place] [address] Bronchitis, not specified as acute or chronic (Primary Dx); Acute pharyngitis Social History Tobacco Use Types Packs/Day Years Used Date Smoking Tobacco: Never Assessed Comments Unknown Sex and Gender Information Value Date Recorded Sex Assigned at Not on file Legal Sex Female 5:51 AM FIELD AIDE Gender Identity Not on file Sexual Orientation Not on file documented as of this encounter Plan of Treatment Not on file documented as of this encounter Visit Diagnoses Diagnosis Bronchitis, not specified as acute or chronic- Primary Acute pharyngitis documented in this encounter Care Teams Hotel Engineer Relationship Specialty Start Date End Date Lauri Krishnan MD [address] [phone] PCP - General Family Practice 12/24/18 documented as of this encounter
--- OUTSIDE RECORDS SUMMARY | 2025-01-10 18:32 | XMS_ITS | Encounter Summary ---
Author Organization [facility] Address [address] [place] [address] Care Team Providers Care Helminthologist Name Role Phone Lauri Krishnan MD Primary Care Provider [phone] Encounter Details Date Type Department Care Team (Latest Contact Info) Description 02/20/2001 Outpatient Historical HIS [facility] Lavelle Lopez Jr., MD [address] [place] [address] Edema (Primary Dx); Osteoarthrosis, unspecified whether generalized or localized, unspecified site Social History Tobacco Use Types Packs/Day Years Used Date Smoking Tobacco: Never Assessed Comments Unknown Sex and Gender Information Value Date Recorded Sex Assigned at Not on file Legal Sex Female 5:51 AM FAGOT MAKER Gender Identity Not on file Sexual Orientation Not on file documented as of this encounter Plan of Treatment Not on file documented as of this encounter Visit Diagnoses Diagnosis Edema- Primary Osteoarthrosis, unspecified whether generalized or localized, unspecified site documented in this encounter Care Teams Helminthologist Relationship Specialty Start Date End Date Lauri Krishnan MD [address] [phone] PCP - General Family Practice 12/24/18 documented as of this encounter
--- OUTSIDE RECORDS SUMMARY | 2025-01-10 18:32 | XMS_ITS | Encounter Summary ---
Author Organization [facility] Address [address] [place] [address] Care Team Providers Care Blank Driller Name Role Phone Lauri Krishnan MD Primary Care Provider Encounter Details Date Type Department Care Team (Late st Contact Info) Description 06/21/2003 Outpatient [facility] [address] [place] [address] David Lau MD [address] [facility] [address] [place] [phone] CARPAL TUNNEL SYNDROME (Primary Dx) Social History Tobacco Use Types Packs/Day Years Used Date Smoking Tobacco: Never Assessed Comments Unknown Sex and Gender Information Value Date Recorded Sex Assigned at Not on file Legal Sex Female 5:51 AM MERCHANDISE PRESENTATION ASSOCIATE Gender Identity Not on file Sexual Orientation Not on file documented as of this encounter Plan of Treatment Not on file documented as of this encounter Visit Diagnoses Diagnosis Carpal tunnel syndrome- Primary documented in this encounter Care Teams Blank Driller Relationship Specialty Start Date End Date Lauri Krishnan MD 805 [facility] 1 [place] [address] PCP - General Family Practice 12/24/18 documented as of this encounter
--- OUTSIDE RECORDS SUMMARY | 2025-01-10 18:32 | XMS_ITS | Encounter Summary ---
Author Organization [facility] Address [address] [place] [address] Care Team Providers Care Microstrategy Reports Developer Name Role Phone Lauri Krishnan MD Primary Care Provider [phone] Encounter Details Date Type Department Care Team (Latest Contact Info) Description 03/25/2003 Outpatient Historical [facility] Lavelle Lopez Jr., MD [address] [place] [address] CARPAL TUNNEL SYNDROME (Primary Dx); BRONCHITIS NOS; CHRONIC AIRWAY OBSTRUCTION NEC ([facility]) Social History Tobacco Use Types Packs/Day Years Used Date Smoking Tobacco: Never Assessed Comments Unknown Sex and Gender Information Value Date Recorded Sex Assigned at Not on file Legal Sex Female 5:51 AM MASS SPECTROMETRY SPECIALIST Gender Identity Not on file Sexual Orientation Not on file documented as of this encounter Plan of Treatment Not on file documented as of this encounter Visit Diagnoses Diagnosis Carpal tunnel syndrome- Primary Bronchitis, not specified as acute or chronic Chronic airway obstruction, not elsewhere classified (CMS/HCC) Chronic airway obstruction, not elsewhere classified documented in this encounter Care Teams Microstrategy Reports Developer Relationship Specialty Start Date End Date Lauri Krishnan MD [address] [phone] PCP - General Family Practice 12/24/18 documented as of this encounter
--- OUTSIDE RECORDS SUMMARY | 2025-01-10 18:32 | XMS_ITS | Encounter Summary ---
Author Organization [facility] Address [address] [place] [address] Care Team Providers Care Roll Wrapper Name Role Phone Lauri Krishnan MD Primary Care Provider [phone] Encounter Details Date Type Department Care Team (Latest Contact Info) Description 05/05/2001 Outpatient Historical [facility] Lavelle Lopez Jr., MD [address] [place] [address] OSTEOARTHROS NOS-UNSPEC (Primary Dx); DEPRESSIVE DISORDER NEC; POSTMENOPAUSAL HORMONAL REPLACMT; VACCINE FOR INFLUENZA Social History Tobacco Use Types Packs/Day Years Used Date Smoking Tobacco: Never Assessed Comments Unknown Sex and Gender Information Value Date Recorded Sex Assigned at Not on file Legal Sex Female 5:51 AM STRIP MACHINE OPERATOR Gender Identity Not on file [...] diseases documented in this encounter Care Teams Roll Wrapper Relationship Specialty Start Date End Date Lauri Krishnan MD [address] [phone] PCP - General Family Practice 12/24/18 documented as of this encounter
[2025-01-10 18:59] LABS: Troponin(5th) Baseline < 6 ng/L (0-10)
[2025-01-10 19:03] LABS: Lactic Acid level (Lactate) 3.1 mmol/L (0.5-2.2)
[2025-01-10 19:04] LABS: Respiratory Syncytial Virus Ce NEGATIVE (Negative); SARS-CoV-2 PCR NEGATIVE (Negative)
[2025-01-10] MEDS: magnesium sulfate premix 1 GM/100 ML PIGGYBACK IV (20:37)
[2025-01-10 20:38] LABS: Estmated Average Glucose 117; Hemoglobin A1C 5.7 % (4.0-6.0)
[2025-01-10 20:53] LABS: Troponin 5 2HR < 6.0 ng/L (0-10); Troponin 5 2HR Delta 0 ABS# (0-10)
--- NOTE | 2025-01-10 20:55 | ECG_ITS ---
[facility] Test Date: 2025-01-10 Pat Name: Nhung Leone Department: Room: 102 Gender: Female Transmission Design Engineer: : 1965 Requested By: Vinny Rodriguez Order Number: [id number] Apoorva MD: Gilmar Malhotra M.D. Measurements Intervals [place] Rate: 104 P: 72 CA: 167 QRS: 85 QRSD: 91 T: 80 QT: 355 QTc: 468 Interpretive Statements SINUS TACHYCARDIA ABNORMAL RHYTHM ECG Compared to ECG 01/10/2025 17:41:13 No significant changes Electronically Signed On 01-13-2025 00:27:04 CDT by Gilmar Malhotra M.D. [email or web address] [id number]
--- NOTE | 2025-01-10 23:21 | ECG_ITS ---
[facility] Test Date: 2025-01-11 Pat Name: Nhung Leone Department: Room: 102 Gender: Female Dental Hygiene Administrative Assistant: : 1965 Requested By: Vinny Rodriguez Order Number: [id number] Guerin MD: Gilmar Malhotra M.D. Measurements Intervals [place] Rate: 88 P: 73 MA: 163 QRS: 87 QRSD: 85 T: 85 QT: 381 QTc: 462 Interpretive Statements SINUS RHYTHM Compared to ECG 01/10/2025 20:55:42 Sinus tachycardia no longer present Electronically Signed On 01-13-2025 00:26:28 CDT by Gilmar Malhotra M.D. [id number] [id number]
[2025-01-11] VITALS (14 sets, daily range): BP systolic 112–140; BP diastolic 65–79; PULSE 78–109; RESP 14–29; TEMP 36.2–37.1; O2SAT 87–99
[2025-01-11 00:39] LABS: Hematocrit 33.2 % (36-47); Hemoglobin 10.50 g/dL (11.27-16.99); Mean Corpuscular HGB Conc 31.6 g/dL (30-55); Mean Corpuscular Hemoglobin 27.6 pg (27-33); Mean Corpuscular Volume 87.4 fl (85-98); Nucleated Red Blood Cells % 0 %; Platelet Count 304 10^3/cmm (157-399); Red Blood Count 3.80 10^6/uL (3.85-5.65); White Blood Count 6.92 10^3/uL (3.29-11.43)
[2025-01-11 01:03] LABS: Troponin 5 6HR < 6.0 ng/L (0-10); Troponin 5 6HR Delta 0 ng/L (0-12)
[2025-01-11 01:09] LABS: Alanine Aminotransferase 9 U/L (0-33); Albumin Level 3.9 g/dL (3.5-5.2); Alkaline Phosphatase 129 U/L (35-105); Anion Gap 17.1 (5-19); Aspartate Amino Transferase 9 U/L (0-32); Blood Urea Nitrogen 12 mg/dL (6-20); Calcium 9.0 mg/dL (8.5-10.5); Carbon Dioxide 23 mmol/L (22-29); Chloride 103 mmol/L (98-107); Creatinine Clr Calc Pharmacy 73.2339; Globulin 2.3 g/dL (1.3-4.6); Glucose 170 mg/dL (65-115); Osmolality Calculated 292 mOsm/kg (285-295); Potassium 4.1 mmol/L (3.5-5.1); Sodium 139 mmol/L (136-145); Total Protein 6.2 g/dL (6.6-8.7)
[2025-01-11] MEDS: methylPREDNISolone sod succ 40 mg/mL INJ IVP ×3 (05:39→17:53)
--- NOTE | 2025-01-11 09:51 | PC.CHAP ---
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 screenplay writer visit [] Patient/Family/Request visit [] Outpatient visit [] Follow-up visit [] Physician referral [] Code/Alert [x] Routine visit [] Staff referral [] Actively dying [] Patient sleeping [] Family support [] [] Out of room [] Palliative care [] [] Receiving care in room [] Pre-surgical visit [] Trauma [] Long length of stay [] ICU visit [] Other: Relational/Emotional Strength [x] Patient feels connected with others/family/visitors/staff [] Distress [] Loneliness/isolation [] Abandonment Spirituality of Patient [x] Person of Shirlene [] Attends Anabaptist of their Shirlene [x] Believes in Prayer [] Reads Bible or Restorationism materials [] There are Spiritual issues to be addressed Medical Underwriter Interventions [x] Prayer [x] Active listening [x] Non-anxious presence [x] Spiritual/emotional support [] Crisis/trauma care [] Spiritual counseling [] Bereavement support [] Provided bereavement packet [] Provided Bible/devotional materials [] Provided toy/stuffed animal, coloring book to patient or family member [] Provided Communion [] Anointing/[place] [] Salvation [x] Completed spiritual assessment [] Other: Impact on Illness or Injury [] Angry [] Fearful [] Anxious [] Often cries [] Exhaustion [] Unable to work [] Unable to attend rastafarian [] Unable to walk/stand [] Unable to read [] Unable to drive [] Unable to eat/drink [] Unable to sleep [] Unable to be with family [] Patient intubated [] Other: Summary Time spent with patient 5 min
--- NOTE | 2025-01-11 14:15 | P.PN_ITS ---
Subjective 2 Subjective: Patient was seen this morning, currently alert to person, to place, to time she follows commands she continues to have diffuse wheezing in all lung sutton, inspiratory expiratory she does feel better, does have mild nasopharynx, tachypnea, tachycardia, intercostal suprasternal retractions improved compared to yesterday, discussed continue steroids, inhaler therapy, antibiotics, she is in agreement, during our conversation, she becomes short of breath after a few words Vitals/I&O/Wt Last Vital Signs Temp 97.1 F L 01/11/25 11:39 Pulse 109 H 01/11/25 11:39 Resp 26 H 01/11/25 11:39 BP 119/74 01/11/25 11:39 Pulse Ox 93 01/11/25 11:39 O2 Del Method Room Air 01/11/25 11:39 O2 Flow Rate 2 01/11/25 07:34 01/10/25 01/11/25 01/11/25 22:59 06:59 14:59 Intake Total 350 / 350 360 / 360 Balance 350 / 350 360 / 360 Weight last 48 hrs Weight 92.578 kg Weight 90.265 kg Weight 79.379 kg Physical Exam 2 Const: COMMON NORMALS: no acute distress and patient oriented x3 Resp: AUSCULTATION: wheezes OTHER: Tachypnea, tachycardia, suprasternal intercostal retractions, nasal flaring, short of breath after a few words Cardio: COMMON NORMALS: regular rhythm, S1 normal heart sound present and S2 normal heart sound present RATE: tachycardic RHYTHM: regular rhythm H EART SOUNDS: S1 normal heart sound present and S2 normal heart sound present GI: COMMON NORMALS: Normal to inspection, nondistended, normoactive bowel sounds present and non-tender Extremity: COMMON NORMALS: no pedal edema Neuro: COMMON NORMALS: patient oriented x3, CN's II-XII intact bilaterally and moves all extremities Psych: COMMON NORMALS: mental status grossly normal Data 01/11/25 00:33 01/11/25 00:33 Micro: Microbiology 01/10/25 18:24 Blood Culture - Preliminary Blood SPECIMEN COLLECTED 01/10/25 18:27 Blood Culture - Preliminary Blood SPECIMEN COLLECTED A&P Assessment and plan 1. CAD (coronary artery disease): 2. Asthma with COPD with exacerbation: 3. Respiratory failure: Plan: Acute hypoxic respiratory failure - Today she has persistent mild to moderate acute respiratory distress syndrome - Secondary to asthma, COPD Plan - Monitor respiratory status closely, if respiratory status worsens will consider moving to ICU, consider BiPAP - DuoNeb - Budesonide -Sputum culture, blood culture - Rocephin, Zithromycin - Solu-Medrol - Full code -Lovenox for DVT prophylaxis PDMP PDMP Reviewed: Not Reviewed Attestations 2 Medical Necessity Statement*: Patient requires hospitalization for acute hypoxic respiratory failure, secondary asthma COPD exacerbation Diagnoses CAD (coronary artery disease) I25.10 Asthma with COPD with exacerbation J44.1 Respiratory failure J96.90
[2025-01-11] MEDS: cefTRIAXone 1,000 mg SDV 1000 MG IVP (17:53)
[2025-01-11] MEDS: pantoprazole 40 mg SDV IVP (17:53)
[2025-01-12] VITALS (14 sets, daily range): BP systolic 109–127; BP diastolic 62–93; PULSE 79–112; RESP 17–28; TEMP 36.4–36.7; O2SAT 92–97
[2025-01-12] MEDS: methylPREDNISolone sod succ 40 mg/mL INJ IVP ×5 (00:06→23:47)
[2025-01-12 04:12] LABS: Hematocrit 32.9 % (36-47); Hemoglobin 10.40 g/dL (11.27-16.99); Mean Corpuscular HGB Conc 31.6 g/dL (30-55); Mean Corpuscular Hemoglobin 28.0 pg (27-33); Mean Corpuscular Volume 88.4 fl (85-98); Nucleated Red Blood Cells % 0 %; Platelet Count 289 10^3/cmm (157-399); Red Blood Count 3.72 10^6/uL (3.85-5.65); White Blood Count 23.23 10^3/uL (3.29-11.43)
[2025-01-12 04:31] LABS: Alanine Aminotransferase 8 U/L (0-33); Albumin Level 3.7 g/dL (3.5-5.2); Alkaline Phosphatase 121 U/L (35-105); Aspartate Amino Transferase 9 U/L (0-32); Blood Urea Nitrogen 17 mg/dL (6-20); Calcium 9.3 mg/dL (8.5-10.5); Carbon Dioxide 25 mmol/L (22-29); Chloride 104 mmol/L (98-107); Creatinine Clr Calc Pharmacy 99.1894; Globulin 2.8 g/dL (1.3-4.6); Glucose 136 mg/dL (65-115); Osmolality Calculated 292 mOsm/kg (285-295); Sodium 139 mmol/L (136-145); Total Protein 6.5 g/dL (6.6-8.7)
[2025-01-12 04:33] LABS: Anion Gap 14.6 (5-19); Potassium 4.6 mmol/L (3.5-5.1)
--- NOTE | 2025-01-12 12:45 | P.PN_ITS ---
Subjective 2 Subjective: Patient was seen this morning, currently alert oriented x 3, following all commands, she persistently is short of breath, receiving her breathing treatment, continues to have wheezing in all lung sutton, tachypnea, tachycardia, or nasal flaring/intercostal retractions, suprasternal retractions are better compared to yesterday, but after speaking a few words, she starts developing evidence of mild to moderate respiratory distress, Vitals/I&O/Wt Last Vital Signs Temp 97.7 F 01/12/25 12:00 Pulse 109 H 01/12/25 12:00 Resp 24 H 01/12/25 12:00 BP 123/67 01/12/25 12:00 Pulse Ox 94 01/12/25 12:00 O2 Del Method Nasal Cannula 01/12/25 11:39 O2 Flow Rate 2 01/12/25 11:39 FiO2 21 01/11/25 16:06 01/11/25 01/12/25 01/12/25 22:59 06:59 14:59 Intake Total 850 / 1450 240 / 1690 360 / 360 Balance 850 / 1450 240 / 1690 360 / 360 Weight last 48 hrs Weight 99.473 kg Weight 92.578 kg Weight 90.265 kg Weight 79.379 kg Physical Exam 2 Const: COMMON NORMALS: no acute distress and patient oriented x3 Resp: AUSCULTATION: crackles and wheezes OTHER: After speaking, she notes mild to moderate. Distress, suprasternal retractions, and intercostal retractions, nasal flaring, tachypnea Cardio: COMMON NORMALS: regular rhythm, S1 normal heart sound present and S2 normal heart sound present RATE: tachycardic RHYTHM: regular rhythm H EART SOUNDS: S1 normal heart sound present and S2 normal heart sound present GI: COMMON NORMALS: Normal to inspection, nondistended, normoactive bowel sounds present and non-tender Extremity: COMMON NORMALS: no pedal edema Neuro: COMMON NORMALS: patient oriented x3 Psych: COMMON NORMALS: mental status grossly normal Data 01/12/25 03:27 01/12/25 03:27 Micro: Microbiology 01/10/25 18:24 Blood Culture - Preliminary Blood NEGATIVE TO DATE 01/10/25 18:27 Blood Culture - Preliminary Blood NEGATIVE TO DATE A&P Assessment and plan 1. CAD (coronary artery disease): 2. Asthma with COPD with exacerbation: 3. Respiratory failure: Plan: Acute hypoxic respiratory failure - she has persistent mild to moderate acute respiratory distress syndrome - Secondary to asthma, COPD Plan - Monitor respiratory status closely, if respiratory status worsens will consider moving to ICU, consider BiPAP - DuoNeb - Budesonide -Sputum culture, blood culture - Rocephin, Zithromycin - Solu-Medrol 40mgqiv q6hrs - Full code -Lovenox for DVT prophylaxis Plan for today, CT chest, fungal studies, LDH, haptoglobin, respiratory viral panel, monitor respiratory status closely PDMP PDMP Reviewed: Not Reviewed Attestations 2 Medical Necessity Statement*: Patient requires hospitalization for acute hypoxic respiratory failure, secondary to asthma, COPD Diagnoses CAD (coronary artery disease) I25.10 Asthma with COPD with exacerbation J44.1 Respiratory failure J96.90
--- NOTE | 2025-01-12 12:47 | CTR_ITS ---
PROCEDURE INFORMATION: Exam: CT Chest Without Contrast; Diagnostic Exam date and time: 01/12/2025 9:59 PM Age: 59 years old Clinical indication: Shortness of breath; Additional info: SOB TECHNIQUE: Imaging protocol: Diagnostic computed tomography of the chest without contrast. Radiation optimization: All CT scans at this facility use at least one of these dose optimization techniques: automated exposure control; mA and/or kV adjustment per patient size (includes targeted exams where dose is matched to clinical indication); or iterative reconstruction. COMPARISON: CT angio chest PE protcl [id number] 07/17/2024 12:10 PM RADIATION DOSE METRICS: Total DLP (mGy-cm): 485.1 FINDINGS: Thyroid: Homogeneous thyroid. Lungs: Scattered pulmonary granulomata are noted. Mild paraseptal emphysema. Mild diffuse bronchial wall thickening with multifocal web-like bronchial occlusions. Pleural spaces: No pneumothorax. No pleural effusion. Heart: Heart size is normal. There is prominent hypertrophy of the interatrial septum. Coronary arteries: Proximal coronary artery stent noted. Lymph nodes: Calcified hilar lymph nodes. Vasculature: Normal caliber thoracic aorta. Normal caliber pulmonary artery tree. Diaphragm: Small sliding hiatal hernia. Bones/joints: No acute fracture or destructive lesion. Soft tissues: Unremarkable. CT/CT chest wo con [id number] IMPRESSION: Exam demonstrates features of acute bronchitis. No airspace disease. COMMENTS: The presence of pulmonary emphysema on CT is an independent risk factor for lung cancer. In the absence of a history or active diagnosis of lung cancer, it is recommended that this patient with emphysema be evaluated for enrollment in a low dose CT lung cancer screening program.
[2025-01-12 15:37] LABS: Coronavirus 229E,HKU1,NL63,OC4 Not Detected (NOT DETECT); Parainfluenza Virus Type 1 Not Detected (NOT DETECT); Parainfluenza Virus Type 2 Not Detected (NOT DETECT); Parainfluenza Virus Type 3 Not Detected (NOT DETECT); Parainfluenza Virus Type 4 Not Detected (NOT DETECT); SARS-COV-2 Not Detected (NOT DETECT)
[2025-01-12] MEDS: pantoprazole 40 mg SDV IVP (16:58)
[2025-01-12] MEDS: cefTRIAXone 1,000 mg SDV 1000 MG IVP (16:58)
[2025-01-13] VITALS (12 sets, daily range): BP systolic 110–120; BP diastolic 62–77; PULSE 76–107; RESP 14–24; TEMP 36.2–36.6; O2SAT 93–98
[2025-01-13 03:36] LABS: Hematocrit 31.8 % (36-47); Hemoglobin 10.00 g/dL (11.27-16.99); Mean Corpuscular HGB Conc 31.4 g/dL (30-55); Mean Corpuscular Hemoglobin 27.9 pg (27-33); Mean Corpuscular Volume 88.8 fl (85-98); Nucleated Red Blood Cells % 0 %; Platelet Count 326 10^3/cmm (157-399); Red Blood Count 3.58 10^6/uL (3.85-5.65); White Blood Count 20.58 10^3/uL (3.29-11.43)
[2025-01-13 04:07] LABS: Alanine Aminotransferase 7 U/L (0-33); Albumin Level 3.6 g/dL (3.5-5.2); Alkaline Phosphatase 112 U/L (35-105); Anion Gap 14.5 (5-19); Aspartate Amino Transferase 8 U/L (0-32); Blood Urea Nitrogen 20 mg/dL (6-20); Calcium 9.2 mg/dL (8.5-10.5); Carbon Dioxide 25 mmol/L (22-29); Chloride 104 mmol/L (98-107); Creatinine Clr Calc Pharmacy 86.7907; Globulin 2.6 g/dL (1.3-4.6); Glucose 136 mg/dL (65-115); Osmolality Calculated 293 mOsm/kg (285-295); Potassium 4.5 mmol/L (3.5-5.1); Sodium 139 mmol/L (136-145); Total Protein 6.2 g/dL (6.6-8.7)
[2025-01-13] MEDS: methylPREDNISolone sod succ 40 mg/mL INJ IVP (05:07)
--- NOTE | 2025-01-13 11:25 | P.DS_ITS ---
Discharge Providers Date of Admission: 01/10/25 16:13 Date of Discharge: January 13, 2025 Attending Provider at Admission: Vinny Rodriguez MD Attending Provider at Discharge: Vinny Rodriguez MD Primary Care Provider: Lauri Krishnan MD Diagnoses at Discharge Discharge Diagnosis 1. Coronary artery disease involving [place] coronary artery of [place] heart with angina pectoris: 2. Asthma with COPD with exacerbation: 3. Respiratory failure: Reason for Visit Reason for Visit: SOB Hospital Course Hospital Course Nhung Leone is a 59 year old female with a past medical history of asthma COPD, quit smoking 4 months ago, who presents to [facility] for shortness of breath. Currently patient is alert oriented x 3, following all commands, she sitting up to side of bed, she feels short of breath, she short of breath after speaking a few words, nasal fine, suprasternal retraction intercostal retractions, and expiratory wheezing, she is in moderate respiratory distress, denies any recent travel, no calf pain, no calf swelling, no hemoptysis, no fevers, no chills, no chest pain She was admitted to [facility] for acute hypoxic respiratory failure secondary to COPD/asthma -Patient received IV antibiotics, IV steroids, clinically monitored - Patient had persistent episodes of acute respiratory distress, wheezing, shortness of breath, requiring prolonged hospitalization - Nonetheless overall clinically improved on discharge no significant evidence of respiratory distress, no significant evidence of wheezing she remains on room air - White blood cell count is 20.58 however likely secondary to steroids as she remains afebrile, and clinically improving - Will discharge her on a steroid taper, oral antibiotics with close follow-up with pulmonary as outpatient Physical Exam Const: COMMON NORMALS: no acute distress and patient oriented x3 Resp: COMMON NORMALS: normal respiratory effort, No retractions, No use of accessory muscles and clear to auscultation bilaterally AUSCULTATION: clear to auscultation bilaterally Cardio: COMMON NORMALS: regular rate, regular rhythm, S1 normal heart sound present and S2 normal heart sound present RATE: regular rate RHYTHM: regular rhythm HEART SOUNDS: S1 normal heart sound present and S2 normal heart sound present GI: COMMON NORMALS: Normal to inspection, nondistended, normoactive bowel sounds present, Soft to palpation and non-tender PALPATION: Yes Soft to palpation Extremity: COMMON NORMALS: no pedal edema Neuro: COMMON NORMALS: patient oriented x3 Psych: COMMON NORMALS: mental status grossly normal Discharge Data Studies Completed and Pending Completed Studies During Hospitalization Category Date Time Status CT chest wo con [id number] Routine Cat Scan 01/12/25 12:47 Completed XR chest 1V portable [id number] Stat Exams 01/10/25 13:39 Completed Pending at discharge Category Date Time Status Blood Culture Stat Lab 01/10/25 18:24 Results Pneumocystis jiroveci Qual PCR Routine Lab 01/12/25 12:47 Ordered Sputum Culture and Gram Stain Stat Lab 01/10/25 17:12 Uncollected Radiology Impressions Chest X-Ray 01/10/25 13:39 IMPRESSION: No acute findings. Chest CT 01/12/25 12:47 IMPRESSION: Exam demonstrates features of acute bronchitis. No airspace disease. COMMENTS: The presence of pulmonary emphysema on CT is an independent risk factor for lung cancer. In the absence of a history or active diagnosis of lung cancer, it is recommended that this patient with emphysema be evaluated for enrollment in a low dose CT lung cancer screening program. Laboratory Results WBC 20.58 10^3/uL (3.29-11.43) H 01/13/25 03:05 RBC 3.58 10^6/uL (3.85-5.65) L 01/13/25 03:05 Hgb 10.00 g/dL (11.27-16.99) L 01/13/25 03:05 Hct 31.8 % (36-47) L 01/13/25 03:05 MCV 88.8 fl (85-98) 01/13/25 03:05 MCH 27.9 pg (27-33) 01/13/25 03:05 MCHC 31.4 g/dL (30-55) 01/13/25 03:05 RDW 16.0 % (12.1-15.1) H 01/13/25 03:05 Plt Count 326 10^3/cmm (157-399) 01/13/25 03:05 MPV 10.8 fL (7.4-10.4) H 01/13/25 03:05 Neut % (Auto) 92.8 % 01/13/25 03:05 Lymph % (Auto) 3.6 % 01/13/25 03:05 [place] % (Auto) 2.1 % 01/13/25 03:05 Eos % (Auto) 0.0 % 01/13/25 03:05 Baso % (Auto) 0.1 % 01/13/25 03:05 Neut # (Auto) 19.09 10^3/uL (1.8-7.7) H 01/13/25 03:05 Lymph # (Auto) 0.7 10^3/uL (0.8-4.8) L 01/13/25 03:05 [place] # (Auto) 0.4 10^3/uL (0.2-0.9) 01/13/25 03:05 Eos # (Auto) 0.0 10^3/uL (0.0-0.8) 01/13/25 03:05 Baso # (Auto) 0.0 10^3/uL (0.0-0.1) 01/13/25 03:05 Nucleated RBC % (auto) 0 % 01/13/25 03:05 Nucleated RBCs # 0.0 /100WBC 01/13/25 03:05 Haptoglobin 213.0 mg/L (30-200) H 01/12/25 03:27 Sodium 139 mmol/L (136-145) 01/13/25 03:05 Potassium 4.5 mmol/L (3.5-5.1) 01/13/25 03:05 Chloride 104 mmol/L (98-107) 01/13/25 03:05 Carbon Dioxide 25 mmol/L (22-29) 01/13/25 03:05 Anion Gap 14.5 (5-19) 01/13/25 03:05 BUN 20 mg/dL (6-20) 01/13/25 03:05 Creatinine 0.8 mg/dL (0.5-0.9) 01/13/25 03:05 GFR Calculation 73.4 mL/min (90-130) L 01/13/25 03:05 Glucose 136 mg/dL (65-115) H 01/13/25 03:05 Estimat Average Glucose 117 01/10/25 14:13 Hemoglobin A1c 5.7 % (4.0-6.0) 01/10/25 14:13 Calculated Osmolality 293 mOsm/kg (285-295) 01/13/25 03:05 Lactic Acid 2.3 mmol/L (0.5-2.2) H 01/10/25 14:13 Lactic Acid (Sepsis) 3.1 mmol/L (0.5-2.2) H 01/10/25 18:27 Calcium 9.2 mg/dL (8.5-10.5) 01/13/25 03:05 Total Bilirubin 0.2 mg/dL (0.15-1.2) 01/13/25 03:05 AST 8 U/L (0-32) 01/13/25 03:05 ALT 7 U/L (0-33) 01/13/25 03:05 Alkaline Phosphatase 112 U/L (35-105) H 01/13/25 03:05 Lactate Dehydrogenase 178 U/L (135-214) 01/12/25 03:27 Troponin T Baseline < 6 ng/L (0-10) 01/10/25 18:27 Troponin T 120 Minute < 6.0 ng/L (0-10) 01/10/25 20:24 Delta Troponin T 0 ABS# (0-10) 01/10/25 20:24 Troponin T Hi Sens 6Hr < 6.0 ng/L (0-10) 01/11/25 00:33 Troponin T Hi Sens 6Hr Delta 0 ng/L (0-12) 01/11/25 00:33 C-Reactive Protein 3.0 mg/L (0.0-4.9) 01/10/25 14:13 NT-Pro-B Natriuret Pep 95 pg/mL (0-125) 01/10/25 14:13 NT-Pro-B Natriuret Pep 100 pg/mL (0-125) 01/10/25 14:13 Total Protein 6.2 g/dL (6.6-8.7) L 01/13/25 03:05 Albumin 3.6 g/dL (3.5-5.2) 01/13/25 03:05 Globulin 2.6 g/dL (1.3-4.6) 01/13/25 03:05 Triglycerides 130 mg/dL (0-150) 01/10/25 14:13 Cholesterol 142 mg/dL (0-200) 01/10/25 14:13 LDL Cholesterol, Calc 63 mg/dL (50-129) 01/10/25 14:13 HDL Cholesterol 53 mg/dL (60-100) L 01/10/25 14:13 LDL/HDL Ratio 1.19 RATIO (0.00-3.22) 01/10/25 14:13 Cholesterol/HDL Ratio 2.68 mg/dL (0.0-4.40) 01/10/25 14:13 Procalcitonin 0.04 ng/mL (0-0.5) 01/10/25 14:13 TSH 1.26 uIU/mL (0.27-4.20) 01/10/25 14:13 Adenovirus (PCR) Not detected (NOT DETECT) 01/12/25 13:43 C. pneumoniae DNA (PCR) Not detected (NOT DETECT) 01/12/25 13:43 Coronavirus 229E (PCR) Not detected (NOT DETECT) 01/12/25 13:43 Human Metapneumovir PCR Not detected (NOT DETECT) 01/12/25 13:43 Influenza A (H1) PCR Not detected (NOT DETECT) 01/12/25 13:43 Influenza A (PCR) Negative (Negative) 01/10/25 18:00 Influ A (H1/09) PCR Not detected (NOT DETECT) 01/12/25 13:43 Influenza A (H3) PCR Not detected (NOT DETECT) 01/12/25 13:43 Influenza Type A (PCR) Not detected (NOT DETECT) 01/12/25 13:43 Influenza Type B (PCR) Not detected (NOT DETECT) 01/12/25 13:43 M. pneumoniae (PCR) Not detected (NOT DETECT) 01/12/25 13:43 Parainfluenza 1 (PCR) Not detected (NOT DETECT) 01/12/25 13:43 Parainfluenza 2 (PCR) Not detected (NOT DETECT) 01/12/25 13:43 Parainfluenza 3 (PCR) Not detected (NOT DETECT) 01/12/25 13:43 Parainfluenza 4 (PCR) Not detected (NOT DETECT) 01/12/25 13:43 RSV (PCR) Negative (Negative) 01/10/25 18:00 RSV Type A (PCR) Not detected (NOT DETECT) 01/12/25 13:43 RSV Type B (PCR) Not detected (NOT DETECT) 01/12/25 13:43 Entero/Rhino (PCR) Not detected (NOT DETECT) 01/12/25 13:43 SARS-CoV-2 (PCR) Not detected (NOT DETECT) 01/12/25 13:43 Vitals Last Vital Signs Temp 97.2 F L 01/13/25 08:00 Pulse 98 01/13/25 11:18 Resp 14 01/13/25 11:18 BP 112/66 01/13/25 11:18 Pulse Ox 94 01/13/25 11:18 O2 Del Method Room Air 01/13/25 11:11 O2 Flow Rate 2 01/13/25 05:05 FiO2 21 01/11/25 16:06 Discharge Plan Discharge Patient Disposition: Home Condition: Stable Prescriptions: New benzonatate 100 mg Capsule 200 mg PO TID PRN (Reason: Cough) 5 Days Qty: 30 0RF prednisone 10 mg tablet See Rx Instructions .ROUTE .COMPLEX Qty: 53 0RF Rx Instructions: 4tabs(40mg) daily for 5 days, 30mg(3tabs) for 5 days, 20mg(2tabs) for 5 days, 10mg for 5 days cefdinir 300 mg capsule 300 mg PO BID 5 Days Qty: 10 0RF Continued nitroglycerin 0.4 mg tablet, sublingual 0.4 mg SUBLINGUAL Q5M PRN (Reason: chest pain) Qty: 25 6RF Rx Instructions: do not exceed 3 doses per episode cetirizine [Zyrtec] 10 mg tablet 10 mg PO QAM pantoprazole 40 mg tablet,delayed release (DR/EC) 40 mg PO BID Qty: 90 2RF Singulair 10 mg tablet 10 mg PO DAILY Qty: 90 1RF Xolair 150 mg/mL syringe 300 mg SUBCUT Q14D Qty: 2 12RF atorvastatin 80 mg tablet 80 mg PO QAM Qty: 90 3RF fluoxetine 40 mg capsule 40 mg PO QAM trazodone 50 mg tablet 50 mg PO BEDTIME PRN (Reason: Sleep) clopidogrel 75 mg tablet 75 mg PO DAILY spironolactone 25 mg tablet 25 mg PO DAILY rosuvastatin 40 mg tablet 40 mg PO BEDTIME aripiprazole 2 mg tablet 2 mg PO DAILY fluticasone propionate [Flonase Allergy Relief] 50 mcg/actuation spray,suspension 1 spray INTRANASAL BID@ PRN (Reason: allergies) albuterol sulfate 90 mcg/actuation HFA aerosol inhaler 2 puff INHALATION Q4H PRN (Reason: Shortness Of Breath) Held furosemide 40 mg tablet 40 mg PO DAILY Qty: 30 0RF Hold Instructions: Resume on 01/15/25. Discharge Order = DC NOW: Discharge Order (Routine); Ordered 01/13/25 Ordered By: Vinny Rodriguez Referrals: Andrew Kumar MD [Physician, Interventional Pulmonology] - 01/25/25 10:00 am Referral Note: copd Lauri Krishnan MD [Primary Care Provider, [facility]] - 01/25/25 1:45 pm Discharge Diet: Cardiac Discharge Activity: Resume usual activity Patient Instructions: Asthma - Adult, Benzonatate (By mouth), Prednisone (By mouth), Cefdinir (By mouth), COPD (Chronic Obstructive Pulmonary Disease) (DC), Acute Respiratory Failure (GEN), Opioid Safety, Patient Portal & [place] Instructions Activity Restrictions/Additional Instructions: -if any shortness of breath please comeback to emergency room Discharge Attestations Time Spent in Discharge Care*: greater than 30 min Status at Discharge: Cognitive status at discharge: cognitively intact , Behavioral status at discharge: cooperative and independent in ADL's , Quality Metrics Clinical Quality Measures [ No reported AMI, CVA or VTE this stay] Coding Level of Care Code 68063 Total time (in minutes) for Discharge: 45 Diagnoses Coronary artery disease involving [place] coronary artery of [place] heart with angina pectoris I25.119 Coronary Disease-Associated Artery/Lesion type: [place] artery [place] vs. transplanted heart: [place] heart Associated angina: with unspecified angina Asthma with COPD with exacerbation J44.1 Respiratory failure J96.90
== END 2025-01-13 11:54 | disposition home or self-care (01) | DRG 189 ==
LOC: ER 16:15 → CSU 18:30
PROVIDERS: Admitting Provider Family Medicine; Emergency Provider Emergency Medicine; PCP Family Medicine; Visit Provider Family Medicine
DX: J80 Acute respiratory distress syndrome (principal); J44.1 Chronic obstructive pulmonary disease with (acute) exacerbation; I50.30 Unspecified diastolic (congestive) heart failure; F33.2 Major depressive disorder, recurrent severe without psychotic features; I25.10 Atherosclerotic heart disease of native coronary artery without angina pectoris; J45.50 Severe persistent asthma, uncomplicated; I11.0 Hypertensive heart disease with heart failure; E78.5 Hyperlipidemia, unspecified; F43.12 Post-traumatic stress disorder, chronic; F41.1 Generalized anxiety disorder; G47.33 Obstructive sleep apnea (adult) (pediatric); R00.0 Tachycardia, unspecified; K21.9 Gastro-esophageal reflux disease without esophagitis; I25.2 Old myocardial infarction; Z95.5 Presence of coronary angioplasty implant and graft; Z79.891 Long term (current) use of opiate analgesic; Z79.899 Other long term (current) drug therapy; Z79.02 Long term (current) use of antithrombotics/antiplatelets; Z87.891 Personal history of nicotine dependence; Z99.81 Dependence on supplemental oxygen
CPT/HCPCS: 36415; 71045; 71250; 80053; 80061; 83010; 83036; 83605; 83615; 83880; 84145; 84443; 84484; 85025; 86140; 87040; 87486; 87581; 87633; 87637; 93005; 94640; 94664; 96372; 96374; 96376; 99285; J0456; J0696; J1650; J2470; J2919; J3475; J7050; J7613; J7626; J9999

== ENCOUNTER → 2025-01-25 09:34 | Outpatient (BNVA) | payer MEDICARE, MEDICAID, SELFPAY | PROVIDERS: PCP Family Medicine; Visit Provider Internal Medicine | DX: J44.89 Other specified chronic obstructive pulmonary disease (principal); J96.90 Respiratory failure, unspecified, unspecified whether with hypoxia or hypercapnia; F17.201 Nicotine dependence, unspecified, in remission; K21.9 Gastro-esophageal reflux disease without esophagitis; G47.33 Obstructive sleep apnea (adult) (pediatric) | CPT/HCPCS: 36415; 82785; 85025; 86001; 86003; 87305; 99204 ==

== ENCOUNTER 2025-02-02 09:50 | Outpatient (CLI) | payer MEDICARE, MEDICAID, SELFPAY ==
[2025-02-02 10:05] VITALS: PULSE 108; RESP 20; O2SAT 97
== END 2025-02-02 09:51 | disposition home or self-care (01) ==
LOC: RT 09:52
PROVIDERS: PCP Family Medicine
DX: J44.89 Other specified chronic obstructive pulmonary disease (principal); J98.8 Other specified respiratory disorders
CPT/HCPCS: 94060; 94726; 94729; J7613

== ENCOUNTER → 2025-02-25 12:48 | Outpatient (BNVA) | payer MEDICARE, MEDICAID, SELFPAY | PROVIDERS: PCP Family Medicine; Visit Provider Internal Medicine Cardiovascular Disease | DX: I25.10 Atherosclerotic heart disease of native coronary artery without angina pectoris (principal); J44.1 Chronic obstructive pulmonary disease with (acute) exacerbation; E66.9 Obesity, unspecified; I11.0 Hypertensive heart disease with heart failure; I50.33 Acute on chronic diastolic (congestive) heart failure; Z87.891 Personal history of nicotine dependence; Z68.30 Body mass index [BMI] 30.0-30.9, adult | CPT/HCPCS: 99214 ==

== ENCOUNTER 2025-03-04 07:12 | Outpatient (CLI) | payer MEDICARE, MEDICAID, SELFPAY ==
[2025-03-04 07:21] VITALS: BMI 30.9
--- NOTE | 2025-03-04 07:54 | NMCV_ITS ---
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 Images obtained in supine and prone position. SPECT RESULTS Technical Quality: Good Raw Data Analysis: Normal Image Corrections: No attenuation or motion correction applied Summed Stress Score: 6 Summed Rest Score: 6 Summed Difference Score: 2 PERFUSION FINDINGS Moderate area of moderately decreased tracer uptake involving the apical lateral, apical inferior and LV apex. Some reversibility was noted in the apical inferior segment. FUNCTIONAL RESULTS (calculated via Gated SPECT) Stress Image LV EF (%): 70 Stress EDV (mL):79 TID: 1.09 Stress ESV (mL):24 FUNCTIONAL FINDINGS: Segmental wall motion analysis revealing no gross wall motion abnormalities IMPRESSIONS 1. Myocardial perfusion imaging revealing moderate area of moderately decreased tracer uptake involving the apical inferior, apical lateral and LV apex with some reversibility in the apical inferior region, suggesting myocardial scarring in the distribution of the right coronary artery/circumflex artery with a very small area of possible ischemia, mostly in the RCA distribution 2. Normal LV ejection fraction 70% 3. LV wall motion analysis revealing no gross wall motion abnormalities. 4. Normal LV volume Compared to study from 08/26/2019, the ischemia appears to be new-the summed ischemic score was [address] Gilmar Malhotra MD FAC (Electronically Signed) Final Date: 04 March 2025 11:15 S
--- NOTE | 2025-03-04 07:54 | ECG_ITS ---
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 Interpretive Statements Lung unchanged pre/post procedure; Intraprocedure shortess of breath; Symptoms resoled by discharge PROCEDURE: At the baseline, the EKG revealed normal sinus rhythm with a normal ST Ts.. The baseline heart was 87 bpm with a blood pressue of 126/76 mm of Hg Lexiscan was infused over a period of 20 seconds. A total of 0.4 milligrams of Lexiscan was infused. The stress phase was continued for a total of 5 minutes. Heart rate at the end of the stress phase was 102 bpm with a blood pressure 111/69 mm of Hg. The EKG at the peak infusion revealed no significant changes. Sestamibi was injected 20 seconds after the Lexiscan infusion. Heart rate at the end of the recovery phase was 95 bpm with a blood pressure of 119/72 mm of Hg. CONCLUSION: 1. No significant EKG changes with the LexiScan infusion 2. No LexiScan induced chest pain or cardiac arrhythmia 3. Normal blood pressure and heart rate response 4. Sestamibi/sestamibi perfusion scan pending; see separate report. Electronically Signed On 03-06-2025 12:43:32 CDT by Gilmar Malhotra M.D. [email or web address]
[2025-03-04] MEDS: ondansetron 2 mg/ML SDV 2 mL 4 MG IVP (09:14)
[2025-03-04 09:17] VITALS: BP 119/72; PULSE 95
== END 2025-03-04 07:13 | disposition home or self-care (01) ==
LOC: CDL 07:14
PROVIDERS: PCP Family Medicine; Visit Provider Internal Medicine Cardiovascular Disease
DX: R07.9 Chest pain, unspecified (principal); R94.39 Abnormal result of other cardiovascular function study; I49.8 Other specified cardiac arrhythmias
CPT/HCPCS: 36415; 78452; 93017; 96374; 96375; A9500; J2405; J2785

== ENCOUNTER → 2025-03-08 12:34 | Outpatient (BNVA) | payer MEDICARE, MEDICAID, SELFPAY | PROVIDERS: PCP Family Medicine; Visit Provider Internal Medicine | DX: J44.89 Other specified chronic obstructive pulmonary disease (principal); G47.30 Sleep apnea, unspecified; K21.9 Gastro-esophageal reflux disease without esophagitis; Z87.891 Personal history of nicotine dependence | CPT/HCPCS: 99214; Q3014 ==

== ENCOUNTER → 2025-04-08 08:53 | Outpatient (BNVA) | payer MEDICARE, MEDICAID, SELFPAY | PROVIDERS: PCP Family Medicine; Referring Provider Family Medicine; Visit Provider Internal Medicine | DX: J44.89 Other specified chronic obstructive pulmonary disease (principal); J45.50 Severe persistent asthma, uncomplicated; R91.1 Solitary pulmonary nodule; Z95.5 Presence of coronary angioplasty implant and graft; Z87.891 Personal history of nicotine dependence; J44.9 Chronic obstructive pulmonary disease, unspecified | CPT/HCPCS: 36415; 82103; 99214; Q3014 ==

== ENCOUNTER 2025-05-19 12:47 | Outpatient (CLI) | payer MEDICARE, MEDICAID, SELFPAY ==
--- NOTE | 2025-05-19 12:50 | CT_ITS ---
WS: [id number] LDCT LUNG CANCER SCREENING TECHNIQUE: Noncontrast CT of the chest with coronal and sagittal reformatted images. CLINICAL INFORMATION: SCREENING COMPARISON: CT lung screening 2022 DLP: 73.59 mGy.cm DIvol: Mean CTDIvol: 1.60 (mGy) All CT scans at [facility] use at least one of these dose optimization techniques: automated exposure control; mA and/or kV adjustment per patient size (includes targeted exams where dose is matched to clinical indication); or iterative reconstruction. FINDINGS: Hyperinflation. Chronic centrilobular and paraseptal emphysema. 3 mm nodule LEFT lower lobe. A few tiny micronodules bilaterally. No new suspicious pulmonary parenchymal abnormalities. A few calcified granulomas. Normal caliber thoracic aorta. No mediastinal or hilar lymphadenopathy. Coronary calcification. No mediastinal or hilar lymphadenopathy. Calcified hilar and subcarinal lymph nodes. No axillary lymphadenopathy. Adrenal glands are normal. Moderate esophageal hiatal hernia. Herniated omental fat along the hernia. Mild thoracic kyphosis. Mild thoracic curve. CT/CT lung screening [id number] IMPRESSION: LUNG-RADS: 2-Benign Appearance or Behavior FOLLOW UP: 12 Month: Continue annual screening with LDCT
== END 2025-05-19 12:48 | disposition home or self-care (01) ==
LOC: RAD 12:47
PROVIDERS: PCP Family Medicine; Visit Provider Family Medicine
DX: Z12.2 Encounter for screening for malignant neoplasm of respiratory organs (principal); Z87.891 Personal history of nicotine dependence; J43.2 Centrilobular emphysema; R91.8 Other nonspecific abnormal finding of lung field; J98.4 Other disorders of lung; K44.9 Diaphragmatic hernia without obstruction or gangrene; M40.04 Postural kyphosis, thoracic region; M40.294 Other kyphosis, thoracic region; I25.10 Atherosclerotic heart disease of native coronary artery without angina pectoris; R59.0 Localized enlarged lymph nodes
CPT/HCPCS: 71271